=== PATIENT | male | born 1965 | race Caucasian/White ===

== ENCOUNTER 2023-05-23 07:00 | Outpatient (OUT) | payer OTHER, SELFPAY ==
[2023-05-24 11:35] LABS: Estimated Average Glucose 154 mg/dL
[2023-05-24 12:25] LABS: Alanine Aminotransferase 38 U/L (16-63); Albumin Globulin Ratio 1.1; Albumin Level 3.8 g/dL (3.4-5.0); Alkaline Phosphatase 65 U/L (46-116); Anion Gap 10.6; Aspartate Amino Transferase 25 U/L (15-37); BUN Creatinine Ratio 15.1; Bilirubin Total 0.3 mg/dL (0.2-1.0); Calcium 9.2 mg/dL (8.5-10.1); Chloride 103 mmol/L (98-107); Chol HDL Ratio 2.5; Cholesterol 189 mg/dL (<=200); Estimated GFR (African America >60 (>=60); Estimated GFR (Non-African Ame >60 (>=60); Free T3 2.83 pg/mL (2.18-3.98); Globulin 3.6 g/dL; Glucose 154 mg/dL (74-106); HDL Cholesterol 77 mg/dL (40-60); Potassium 4.6 mmol/L (3.5-5.1); Sodium 137 mmol/L (136-145); Thyroid Stimulating Hormone 1.495 uIU/mL (0.358-3.740); Total Protein 7.4 g/dL (6.4-8.2); Triglycerides 59 mg/dL (<=150); VLDL CHOLESTEROL 11.8 mg/dL
[2023-05-24 13:37] LABS: Creatinine Urine Random 90.29 mg/dL (20.00-300.00); Microalbum Creatinine Ratio Ur 14.3 mg/g (0.0-29.9); Microalbumin Urine Random <1.3 mg/dL (<=30.0)
== END 2023-05-23 07:01 | disposition home or self-care (01) ==
LOC: LAB 05-28 13:03
PROVIDERS: PCP Family Medicine
DX: E10.9 Type 1 diabetes mellitus without complications (principal)
CPT/HCPCS: 36415; 80053; 80061; 82043; 82570; 83036; 84439; 84443; 84481

== ENCOUNTER 2023-12-06 10:00 | Outpatient (OUT) | payer OTHER, SELFPAY ==
[2023-12-06 10:33] LABS: Creatinine Urine Random 59.36 mg/dL (20.00-300.00); Microalbum Creatinine Ratio Ur 28.6 mg/g (0.0-29.9); Microalbumin Urine Random 1.7 mg/dL (<=30.0)
[2023-12-06 10:38] LABS: Estimated Average Glucose 157 mg/dL; Glycohemoglobin A1C 7.1 % (4.5-6.2)
[2023-12-06 11:00] LABS: Alanine Aminotransferase 37 U/L (16-63); Albumin Level 3.5 g/dL (3.4-5.0); Alkaline Phosphatase 62 U/L (46-116); Anion Gap 7.7; Aspartate Amino Transferase 28 U/L (15-37); Bilirubin Total 0.4 mg/dL (0.2-1.0); Calcium 8.8 mg/dL (8.5-10.1); Carbon Dioxide 32.5 mmol/L (21.0-32.0); Chloride 102 mmol/L (98-107); Chol HDL Ratio 2.5; Cholesterol 186 mg/dL (<=200); Estimated GFR (African America >60 (>=60); Estimated GFR (Non-African Ame >60 (>=60); Globulin 3.5 g/dL; Glucose 142 mg/dL (74-106); HDL Cholesterol 75 mg/dL (40-60); Potassium 4.2 mmol/L (3.5-5.1); Sodium 138 mmol/L (136-145); Triglycerides 123 mg/dL (<=150); VLDL CHOLESTEROL 24.6 mg/dL
== END 2023-12-06 10:01 | disposition home or self-care (01) ==
LOC: LAB 10:03
PROVIDERS: PCP Family Medicine
DX: E10.9 Type 1 diabetes mellitus without complications (principal); E78.2 Mixed hyperlipidemia
CPT/HCPCS: 36415; 80053; 80061; 82043; 82570; 83036

== ENCOUNTER 2024-11-24 09:34 | Outpatient (OUT) | payer OTHER, SELFPAY ==
[2024-11-24 10:23] LABS: Microalbumin Urine Random <1.3 mg/dL (<=30.0)
[2024-11-24 10:32] LABS: Estimated Average Glucose 154 mg/dL
[2024-11-24 10:35] LABS: Alanine Aminotransferase 111 U/L (16-63); Albumin Globulin Ratio 1.1; Albumin Level 3.9 g/dL (3.4-5.0); Alkaline Phosphatase 74 U/L (46-116); Anion Gap 12.3; Aspartate Amino Transferase 54 U/L (15-37); BUN Creatinine Ratio 11.8; Bilirubin Total 0.4 mg/dL (0.2-1.0); Calcium 9.7 mg/dL (8.5-10.1); Carbon Dioxide 30.3 mmol/L (21.0-32.0); Chloride 100 mmol/L (98-107); Chol HDL Ratio 2.5; Cholesterol 186 mg/dL (<=200); Estimated GFR (African America >60 (>=60 mL/min/1.73m^2); Estimated GFR (Non-African Ame >60 (>=60 mL/min/1.73m^2); Globulin 3.4 g/dL; Glucose 194 mg/dL (74-106); HDL Cholesterol 74 mg/dL (40-60); Potassium 4.6 mmol/L (3.5-5.1); Sodium 138 mmol/L (136-145); Thyroid Stimulating Hormone 1.859 uIU/mL (0.358-3.740); Total Protein 7.3 g/dL (6.4-8.2); Triglycerides 153 mg/dL (<=150); VLDL CHOLESTEROL 30.6 mg/dL
== END 2024-11-24 09:35 | disposition home or self-care (01) ==
LOC: LAB 09:36
PROVIDERS: PCP Family Medicine
DX: E03.9 Hypothyroidism, unspecified (principal); E78.2 Mixed hyperlipidemia; E10.9 Type 1 diabetes mellitus without complications
CPT/HCPCS: 36415; 80053; 80061; 82043; 82570; 83036; 84443

== ENCOUNTER 2025-03-25 16:37 | Outpatient (OUT) | payer OTHER, SELFPAY ==
--- OUTSIDE RECORDS SUMMARY | 2025-03-16 16:44 | XMS_ITS ---
Author Name Auto Generated Organization OHIP Support Name Relationship Address Phone VELIA LANTIGUASA Next of Kin Unknown [phone] LANTIGUA, EDENILSON Next of Kin Unknown [phone] LANTIGUA, EDENILSON Next of Kin Unknown [phone] LANTIGUA, EDENILSON Next of Kin Unknown [phone] LANTIGUA, EDENILSON Next of Kin Unknown [phone] LANTIGUA, EDENILSON Next of Kin Unknown [phone] LANTIGUA, EDENILSON Next of Kin Unknown [phone] LANTIGUA, EDENILSON Next of Kin Unknown [phone] LANTIGUA, EDENILSON Next of Kin Unknown [phone] Lantigua, Edenilson Next of Kin [address] [place] [address] + [place] Next of Kin [address] [place] [address] + LANTIGUA, EDENILSON Next of Kin Unknown [phone] LANTIGUA, EDENILSON Next of Kin Unknown [phone] LANTIGUA, EDENILSON Next of Kin Unknown [phone] LANTIGUA, EDENILSON Next of Kin Unknown [phone] LANTIGUA, EDENILSON Next of Kin Unknown [phone] LANTIGUA, EDENILSON Next of Kin Unknown [phone] LANTIGUA, EDENILSON Next of Kin Unknown [phone] LANTIGUA, EDENILSON Next of Kin Unknown [phone] LANTIGUA, EDENILSON Next of Kin Unknown [phone] LANTIGUA, EDENILSON Next of Kin Unknown [phone] Care Team Providers Care Tail Board Man Name Role Phone JR. FUENTES GEORGE C Attending Unavaila ovi FUENTES JR., GEORGE C Referring Unavaila ble MIKAEL ARAYA Attending Unavailable MIKAEL ARAYA Referring Unavailable KAMIKAEL BENÍTEZ Referring Unavailable RAMSEY SHI Attending Unavailable MIKAEL ARAYA Referring Unavailable KATEY MÉNDEZ Attending Unavailable KATEY MÉNDEZ Attending Unavailable KATEY MÉNDEZ Referring Unavailable MIKAEL ARAYA Referring Unavailable MIKAEL ARAYA Attending Unavailable BUCKY PEÑA Attending Unavailable MIKAEL ARAYA Referring Unavailable BUCKY PEÑA Attending Unavailable MIKAEL ARAYA Attending Unavailable MIKAEL ARAYA Referring Unavailable KAPHILIPANMIKAEL Referring Unavailable MIKAEL ARAYA Attending Unavailable MIKAEL ARAYA Referring Unavailable MIKAEL ARAYA JR [facility] Unavail able MIKAEL ARAYA JR [facility] Unavail able PRABHA GONZALEZ Referring Unavailable MIKAEL ARAYA JR [facility] Unavail able MORENA, GANDHIVARMA Referring Unavail able MIKAEL ARAYA JR [facility] Care Unavail able MORENA, GANDHIVARMA Attending Unavail able MORENA, GANDHIVARMA Referring Unavail able MIKAEL ARAYA JR [facility] Unavail able MORENA, GANDHIVARMA Referring Unavail able MIKAEL ARAYA JR [facility] Unavail able MIKAEL ARAYA JR [facility] Unavail able MORENA, GANDHIVARMA Referring Unavail able MIKAEL ARAYA JR [facility] Unavail able BERNARDINO VLILAGOMEZ Attending Unavailable GLO SANDRA Attending Unavailable MIKAEL ARAYA JR [facility] Care Unavail able MIGDALIA UREÑA Attending Unavailable MIKAEL ARAYA JR [facility] Unavail able SELF Referring Unavailable BLANCA MARTINEZ Attending Unavailable MIKAEL ARAYA JR [facility] Unavail able MORENA, GANDHIVARMA Attending Unavail able MIKAEL ARAYA JR [facility] Care Unavail able Darryn Araya Attending Unavailable Darryn Araya Primary Care Unavailable Darryn Araya Admitting Unavailable MORENA, GANDHIVARMA Attending Unavail able MIKAEL ARAYA [facility] Unavail able MIGDALIA UREÑA Referring Unavailable MIKAEL ARAYA [facility] Unavail able MALIHA BERG Attending Unavail able MALIHA BERG Admitting Unavail able MIKAEL ARAYA [facility] Unavail able MIGDALIA UREÑA Attending Unavailable MIGDALIA UREÑA Admitting Unavailable MIKAEL ARAYA JR [facility] Unavail able MIGDALIA UREÑA Attending Unavailable MIGDALIA UREÑA Admitting Unavailable Alfie CERVANTES Attending Unavailable PROBLEMS DATE TYPE CONDITION / CODE ATTENDING STATUS [facility] 03/01/2025 Active Chronic midline low back pain without sciatica / M54.50(ICD-10) NA Active [facility] 03/01/2025 Active Chronic midline low back pain without sciatica / G89.29(ICD-10) NA Active [facility] 03/01/2025 Active Chronic bilatera l low back pain with left-sided sciatica / G89.29(ICD-10) NA Active [facility] 03/01/2025 Active Chronic bilatera l low back pain with left-sided sciatica / M54.42(ICD-10) NA Active [facility] 01/12/2025 Active Radiculopathy, l umbar region / M54.16(ICD-10) MALIHA BERG [facility] 12/30/2024 Active Pre-op evaluatio n / Z01.818(ICD-10) NA Active [facility] 12/07/2024 Active Diabetes mellitu s type 1, controlled, insulin dependent (HCC) / E10.9(ICD-10) BERNARDINO VILLAGOMEZ Active [facility] 08/20/2024 Active Radiculopathy of lumbar region / M54.16(ICD-10) MORENA, GANBRANDYIVARMA [facility] 08/20/2024 Active Spinal stenosis of lumbar region, unspecified whether neurogenic claudication present / M48.061(ICD-10) MORENA, GANDHIVARMA [facility] 06/29/2024 Active Lumbar radiculop athy, chronic / M54.16(ICD-10) MIGDALIA UREÑA Active [facility] 06/25/2024 Unknown Disorder of bone , unspecified / M89.9(ICD-10) Darryn Araya [facility] PROCEDURES No Procedure Records Found RESULTS CNPN Observed: 03/23/2025 12:00 AM Status: COMPLETED Source: [facility] Telephone (NIQ) JACQUIE LANTIGUA ([id number]) 1965 M Date Time Provider Department 03/23/25 MALIHA BERG [place] During your visit today, we recorded the following information about you: Alexandria Cook 03/23/2025 3:30 PM Signed Patient called with complaints of left hip and leg pain. 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 Per patient, he is ok from 6:30 till about noon, then his left hip and leg keeps giving out and he can no longer walk. Please call patient to advise at [phone]. Zohaib Garcia PA-C 03/23/2025 4:15 PM Signed Call placed to patient at 3:50 PM. Patient reports left hip and leg pain that is not improved with medication. He states he is able to go to work in the morning but 4 to 5 hours into his shift the pain becomes so severe that his left leg gives out. He has been doing physical therapy 2 times a day at home as well as 1 day a week in person with the physical therapists. He is using ibuprofen, gabapentin, and had a steroid pack recently with no relief. Since he is having a lot of left sided hip pain, will order left hip x-ray. Advised patient to have them send imaging over to [facility] once completed and follow-up with Dr. Berg's office. Will fax order to [facility]. Patient was appreciative of call. Allergies As of Date: 03/23/2025 Noted Allergy Reaction HUMIRA (ADALIMUMAB) 08/20/2017 8 - GI Upset METHOTREXATE 05/21/2019 16 - Unknown RED DYE 07/04/2002 16 - Unknown Date Reviewed: 02/03/2025 Reviewed by: Jackie Linares OCCA - Fully Assessed Reason for Visit: Severe Pain [Other] Primary Visit Diagnosis:Pain in left hip [M25.552] Order(s):XR HIP GENERAL 3V PELV/AP/LAT LEFT [[id number]] Order #: [id number] FUTURE Prescriptions as of 03/24/2025 - methocarbamol (ROBAXIN) 750 mg tablet Take 1 tablet by mouth three times a day. - tiZANidine (ZANAFLEX) 4 mg tablet 4 mg. - HUMALOG U-100 INSULIN 100 unit/mL injection INJECT 90 UNITS DAILY VIA INSULIN PUMP - gabapentin (NEURONTIN) 400 mg capsule Take 800 mg by mouth. 3 x times dily - famotidine (PEPCID) 20 mg tablet Take 1 tablet by mouth two times a day. - rifAMPin (RIFADIN) 300 mg capsule Take 2 pills once monthly - ofloxacin (FLOXIN) 400 mg tablet Take 1 pill once monthly - Minocycline HCl 100 mg tablet Take 1 pill once monthly - fluticasone (FLONASE) 50 mcg/actuation nasal spray Use in the nose. - icosapent ethyl (VASCEPA) 1 gram Take 1 g by mouth. 2 caps in the AM and 2 caps in the PM - levothyroxine (SYNTHROID) 50 mcg tablet TAKE 2 TABLETS DAILY - rosuvastatin (CRESTOR) 20 mg tablet TAKE ONE AND ONE-HALF TABLETS ONCE DAILY - ibuprofen (MOTRIN) 800 mg tablet Take 800 mg by mouth every 6 hours as needed. - cyclobenzaprine (FLEXERIL) 10 mg tablet Take 10 mg by mouth three times daily as needed. - PROAIR HFA 90 mcg/actuation inhaler Inhale 2 Puffs as instructed as needed. - ADVAIR HFA 115-21 mcg/actuation inhaler Inhale 4 Puffs as instructed once daily. - MUCINEX 600 mg 12 hr tablet Take 2 tablets by mouth once daily as needed. - Subcutaneous Insulin Pump (ACCU-CHEK SPIRIT INSULIN PUMP) misc Basal rates: 24:00 --1.6units/hr; 0300:-2.3units/hr;06:00-1.8;11:00-1.8;12:00-2.0;16:00-2.2;19:00-2.7;21:00-2.4 ;22:00-1.6. Bolus: 2 unit/6 Gms CHO each meal; correction : 1 unit every 25 mg > 125 mg/dl. Whn wrk. hrd: tmp bas at 80% - lisinopril (ZESTRIL) 2.5 mg tablet Take 4 tablets by mouth once daily. - aspirin, enteric coated (ECOTRIN LOW STRENGTH) 81 mg ORAL EC tablet Take 1 tablet by mouth once daily. - fluoxetine hcl(PROZAC 20 MG CAP) 3 tabs daily - ONE TOUCH ULTRA TEST STRIPS chekc 6-8 timea a day(insulin pump) - ONE TOUCH FINE POINT LANCET uses 6-8 a day - CENTRUM ECHINACEA CAPSULE 100MG PO Problem List As Of Date 03/23/2025 Noted Resolved Type 1 diabetes mellitus with other specified c*07/20/2002 MIXED HYPERLIPIDEMIA [E78.2] 06/12/2004 HYPOPOTASSEMIA [E87.6] 06/12/2004 ED. [N52.9] 07/22/2005 Peyronie's. [N48.89] 08/08/2005 ABNORMAL THYROID FUNCT STUDY (neg MCAB) [R94.6] 02/03/2006 11/27/2018 acquired hypothyroidism [E03.8] 03/05/2011 11/27/2018 Diabetes mellitus type 1, uncontrolled, without*02/13/2016 11/27/2018 Adult onset hypothyroidism [E03.8] 02/13/2016 11/27/2018 Background diabetic retinopathy (HCC) [E11.3299]02/13/2016 Primary hypertension [I10] 12/30/2024 Acquired hypothyroidism [E03.9] 12/30/2024 Moderate asthma without complication [J45.909] 12/30/2024 Obesity, Class I, BMI 30-34.9 [E66.811] 01/06/2025 Hard to intubate [T88.4XXA] 01/12/2025 Chronic midline low back pain without sciatica *03/01/2025 Encounter Status:Closed by ZOHAIB GARCIA on 03/23/25 CNTHERAPY Observed: 03/16/2025 5:00 PM Status: COMPLETED Source: [facility] OT/PT/Speech Visit (LOPTRM) JACQUIE LANTIGUA ([id number]) 1965 M Date Time Provider Department 03/16/25 5:00 PM DAMIEN REEVES Date Time Provider Department Center 03/16/2025 5:00 PM [id number] REEVES Reason for Visit: Physical Therapy [503] Primary Visit Diagnosis:Chronic midline low back pain without sciatica [M54.50, G89.29] Other Visit Diagnosis:Chronic bilateral low back pain with left-sided sciatica [G89.29, M54.42] Allergies As of Date: 03/16/2025 Noted Allergy Reaction HUMIRA (ADALIMUMAB) 08/20/2017 8 - GI Upset METHOTREXATE 05/21/2019 16 - Unknown RED DYE 07/04/2002 16 - Unknown Date Reviewed: 02/03/2025 Reviewed by: Jackie Linares OCCA - Fully Assessed Prescriptions as of 03/17/2025 - methocarbamol (ROBAXIN) 750 mg tablet Take 1 tablet by mouth three times a day. - tiZANidine (ZANAFLEX) 4 mg tablet 4 mg. - HUMALOG U-100 INSULIN 100 unit/mL injection INJECT 90 UNITS DAILY VIA INSULIN PUMP - gabapentin (NEURONTIN) 400 mg capsule Take 800 mg by mouth. 3 x times dily - famotidine (PEPCID) 20 mg tablet Take 1 tablet by mouth two times a day. - rifAMPin (RIFADIN) 300 mg capsule Take 2 pills once monthly - ofloxacin (FLOXIN) 400 mg tablet Take 1 pill once monthly - Minocycline HCl 100 mg tablet Take 1 pill once monthly - fluticasone (FLONASE) 50 mcg/actuation nasal spray Use in the nose. - icosapent ethyl (VASCEPA) 1 gram Take 1 g by mouth. 2 caps in the AM and 2 caps in the PM - levothyroxine (SYNTHROID) 50 mcg tablet TAKE 2 TABLETS DAILY - rosuvastatin (CRESTOR) 20 mg tablet TAKE ONE AND ONE-HALF TABLETS ONCE DAILY - ibuprofen (MOTRIN) 800 mg tablet Take 800 mg by mouth every 6 hours as needed. - cyclobenzaprine (FLEXERIL) 10 mg tablet Take 10 mg by mouth three times daily as needed. - PROAIR HFA 90 mcg/actuation inhaler Inhale 2 Puffs as instructed as needed. - ADVAIR HFA 115-21 mcg/actuation inhaler Inhale 4 Puffs as instructed once daily. - MUCINEX 600 mg 12 hr tablet Take 2 tablets by mouth once daily as needed. - Subcutaneous Insulin Pump (ACCU-CHEK SPIRIT INSULIN PUMP) misc Basal rates: 24:00 --1.6units/hr; 0300:-2.3units/hr;06:00-1.8;11:00-1.8;12:00-2.0;16:00-2.2;19:00-2.7;21:00-2.4 ;22:00-1.6. Bolus: 2 unit/6 Gms CHO each meal; correction : 1 unit every 25 mg > 125 mg/dl. Eva fuentesk. hrd: tmp bas at 80% - lisinopril (ZESTRIL) 2.5 mg tablet Take 4 tablets by mouth once daily. - aspirin, enteric coated (ECOTRIN LOW STRENGTH) 81 mg ORAL EC tablet Take 1 tablet by mouth once daily. - fluoxetine hcl(PROZAC 20 MG CAP) 3 tabs daily - ONE TOUCH ULTRA TEST STRIPS chekc 6-8 timea a day(insulin pump) - ONE TOUCH FINE POINT LANCET uses 6-8 a day - CENTRUM ECHINACEA CAPSULE 100MG PO PROGRESS Observed: 03/16/2025 4:50 PM Status: COMPLETED Source: [facility] ID: [id number] Author: DAMIEN REEVES PTA Service: ? Author Type: Procurement Officer Type: Progress Notes Filed: 03/17/2025 08:24 Note Text: Episode Visit Count: 3 Therapist That Will Accept/Oversee The Plan Of Care: Chery Land Start of Care Date: 03/01/25 Onset Date: 11/03/23 REHABILITATION AND SPORTS THERAPY PHYSICAL THERAPY TREATMENT NOTE ASSESSMENT: Jacquie Lantigua tolerated the session well overall. Patient progressing without increased pain or discomfort during core stability AND stretching exercises. Patient able to verbalize HEP independently. The patient will continue to benefit from ongoing skilled physical therapy to progress toward set goals. PLAN FOR NEXT VISIT: Patient to follow up with his primary PT next treatment. SUBJECTIVE: Patient reported that he's doing better. Back is feeling better since starting therapy, but it's still bothering him. Pain: Pain Pain Level: 5 Pain Location: Low Back/Lumbar Spine - Left, Leg - Left Description: Aching, Dull, Tightness Frequency: Intermittent Post Treatment Pain Post Treatment Pain Level: Better OBJECTIVE MEASURES WITH LEVEL OF FUNCTION: More tight in left > than right quadriceps. Posture: thoracic block sits anterior to pelvic block TREATMENT: Therapeutic Exercise: 1: Seated stepper 5 mins 1:1 throughout discussing current status and HEP 2: Hamstring flossing w/ towel x10a 3: Piriformis 30sec x3 4: Edge of bed hip flexor stretch x 30 sec x 2 reps each LE 5: Bridge 2 x 10 Skilled Intervention: Patient was educated in proper exercise technique and purpose for exercises. Skilled judgment was used in selection of appropriate interventions. Patient education as noted. Neuromuscular Re-Education: 1: Hooklying hip flexion isometric alt UE/LE x 5 sec hold x 20 reps 2: Hooklying hip flexion isometric WOOD UE/LE x 5 sec hold x 20 reps 3: Standing hip ext with RTB, neutral spine 2 x 10 Skilled Intervention: Education and demonstration for posture and positioning for tone management. Patient education as noted. Billing Therapeutic Exercise Treatment Minutes: 22 Manual TherapyTreatment Minutes: 10 Neuromuscular Re-Education Treatment Minutes: 13 Skilled Treatment Time Minutes (timed and untimed codes): 45 Total Session Time (minutes): 45 Session Start Time : 1653 Session Stop Time : 1738 Damien Reeves PTA THERAPY NT Observed: 03/09/2025 5:33 PM Status: COMPLETED Source: [facility] HNO ID: [id number] Author: DAMIEN REEVES PTA Service: ? Author Type: Procurement Officer Type: Therapy (PT/OT/Speech/Resp) Filed: 03/09/2025 17:33 Note Text: Program_ID:[id number] Access Code: [email or web address] URL: [email or web address] Date: 03-09-2025 Prepared By: Chery Land Program Notes self massage to left gluteal with over the counter thera-gun, 2-3 mins as needed Exercises - Active Straight Leg Raise with Quad Set - 1-2 x daily - 7 x weekly - 1 sets - 10-15 reps - Supine Lower Trunk Rotation - 1-2 x daily - 7 x weekly - 1 sets - 10 reps - Supine Bridge - 1-2 x daily - 7 x weekly - 1 sets - 10-15 reps - Sidelying Hip Abduction - 1-2 x daily - 7 x weekly - 1-2 sets - 10-15 reps - Hooklying Isometric Hip Flexion with Opposite Arm - 1-2 x daily - 7 x weekly - 1 sets - 10 reps - Supine Hamstring Stretch - 1 x daily - 7 x weekly - 1 sets - 10 reps - Modified Tom Stretch - 1 x daily - 7 x weekly - 1 sets - 2 reps - Bent Knee Fallouts - 1 x daily - 7 x weekly - 3 sets - 10 reps - Supine Piriformis Stretch with Foot on Ground - 1 x daily - 7 x weekly - sets - 3 reps CNTHERAPY Observed: 03/09/2025 5:00 PM Status: COMPLETED Source: [facility] OT/PT/Speech Visit (ALEE) JACQUIE LANTIGUA ([id number]) 1965 M Date Time Provider Department 03/09/25 5:00 PM DAMIEN REEVES Date Time Provider Department Center 03/09/2025 5:00 PM [id number] REEVES Reason for Visit: Physical Therapy [503] Primary Visit Diagnosis:Chronic midline low back pain without sciatica [M54.50, G89.29] Other Visit Diagnosis:Chronic bilateral low back pain with left-sided sciatica [G89.29, M54.42] Allergies As of Date: 03/09/2025 Noted Allergy Reaction HUMIRA (ADALIMUMAB) 08/20/2017 8 - GI Upset METHOTREXATE 05/21/2019 16 - Unknown RED DYE 07/04/2002 16 - Unknown Date Reviewed: 02/03/2025 Reviewed by: Jackie Linares OCCA - Fully Assessed Prescriptions as of 03/09/2025 - methylPREDNISolone (MEDROL, RIVAS,) 4 mg Dose-Pack As instructed per package - methocarbamol (ROBAXIN) 750 mg tablet Take 1 tablet by mouth three times a day. - tiZANidine (ZANAFLEX) 4 mg tablet 4 mg. - HUMALOG U-100 INSULIN 100 unit/mL injection INJECT 90 UNITS DAILY VIA INSULIN PUMP - gabapentin (NEURONTIN) 400 mg capsule Take 800 mg by mouth. 3 x times dily - famotidine (PEPCID) 20 mg tablet Take 1 tablet by mouth two times a day. - rifAMPin (RIFADIN) 300 mg capsule Take 2 pills once monthly - ofloxacin (FLOXIN) 400 mg tablet Take 1 pill once monthly - Minocycline HCl 100 mg tablet Take 1 pill once monthly - fluticasone (FLONASE) 50 mcg/actuation nasal spray Use in the nose. - icosapent ethyl (VASCEPA) 1 gram Take 1 g by mouth. 2 caps in the AM and 2 caps in the PM - levothyroxine (SYNTHROID) 50 mcg tablet TAKE 2 TABLETS DAILY - rosuvastatin (CRESTOR) 20 mg tablet TAKE ONE AND ONE-HALF TABLETS ONCE DAILY - ibuprofen (MOTRIN) 800 mg tablet Take 800 mg by mouth every 6 hours as needed. - cyclobenzaprine (FLEXERIL) 10 mg tablet Take 10 mg by mouth three times daily as needed. - PROAIR HFA 90 mcg/actuation inhaler Inhale 2 Puffs as instructed as needed. - ADVAIR HFA 115-21 mcg/actuation inhaler Inhale 4 Puffs as instructed once daily. - MUCINEX 600 mg 12 hr tablet Take 2 tablets by mouth once daily as needed. - Subcutaneous Insulin Pump (ACCU-CHEK SPIRIT INSULIN PUMP) misc Basal rates: 24:00 --1.6units/hr; 0300:-2.3units/hr;06:00-1.8;11:00-1.8;12:00-2.0;16:00-2.2;19:00-2.7;21:00-2.4 ;22:00-1.6. Bolus: 2 unit/6 Gms CHO each meal; correction : 1 unit every 25 mg > 125 mg/dl. Eva hein. hrd: tmp bas at 80% - lisinopril (ZESTRIL) 2.5 mg tablet Take 4 tablets by mouth once daily. - aspirin, enteric coated (ECOTRIN LOW STRENGTH) 81 mg ORAL EC tablet Take 1 tablet by mouth once daily. - fluoxetine hcl(PROZAC 20 MG CAP) 3 tabs daily - ONE TOUCH ULTRA TEST STRIPS chekc 6-8 timea a day(insulin pump) - ONE TOUCH FINE POINT LANCET uses 6-8 a day - CENTRUM ECHINACEA CAPSULE 100MG PO Education Administrator: Therapy (PT/OT/Speech/Resp) ID: [id number] 03/09/2025 5:33 PM Author: DAMIEN REEVES Signed by DAMIEN REEVES SURGICAL LEAD on 03/09/2025 at 5:33 PM Document text: Program_ID:[id number] Access Code: [email or web address] URL: [email or web address] Date: 03-09-2025 Prepared By: Chery Land Program Notes self massage to left gluteal with over the counter thera-gun, 2-3 mins as needed Exercises - Active Straight Leg Raise with Quad Set - 1-2 x daily - 7 x weekly - 1 sets - 10-15 reps - Supine Lower Trunk Rotation - 1-2 x daily - 7 x weekly - 1 sets - 10 reps - Supine Bridge - 1-2 x daily - 7 x weekly - 1 sets - 10-15 reps - Sidelying Hip Abduction - 1-2 x daily - 7 x weekly - 1-2 sets - 10-15 reps - Hooklying Isometric Hip Flexion with Opposite Arm - 1-2 x daily - 7 x weekly - 1 sets - 10 reps - Supine Hamstring Stretch - 1 x daily - 7 x weekly - 1 sets - 10 reps - Modified Tom Stretch - 1 x daily - 7 x weekly - 1 sets - 2 reps - Bent Knee Fallouts - 1 x daily - 7 x weekly - 3 sets - 10 reps - Supine Piriformis Stretch with Foot on Ground - 1 x daily - 7 x weekly - sets - 3 reps PROGRESS Observed: 03/09/2025 4:51 PM Status: COMPLETED Source: [facility] HNO ID: [id number] Author: DAMIEN REEVES PTA Service: ? Author Type: Procurement Officer Type: Progress Notes Filed: 03/09/2025 17:42 Note Text: Episode Visit Count: 2 Therapist That Will Accept/Oversee The Plan Of Care: Chery Land Start of Care Date: 03/01/25 Onset Date: 11/03/23 REHABILITATION AND SPORTS THERAPY PHYSICAL THERAPY TREATMENT NOTE ASSESSMENT: Jacquie Lantigua tolerated the session well overall. Noted relief from self STM with theragun to left gluteal. Updated HEP this date and all questions answered. The patient will continue to benefit from ongoing skilled physical therapy to progress toward set goals. PLAN FOR NEXT VISIT: Progress as able. SUBJECTIVE: Patient reported that he's a little better. Still having the pain with activity AND prolonged weight bearing. Pain: Pain Pain Level: 6 Pain Location: Low Back/Lumbar Spine - Left, Leg - Left Description: Aching, Dull, Sharp (slightly less sharp) Frequency: Intermittent Post Treatment Pain Post Treatment Pain Level: Better OBJECTIVE MEASURES WITH LEVEL OF FUNCTION: More difficulty keeping left hip in a neutral alignment verses right LE. Increased tone left gluteal. TREATMENT: Therapeutic Exercise: 1: Hamstring flossing w/ towel x15a 2: *Self tennis ball massage 3: LTR x 10 reps each side 4: Bridges x 15 reps 5: S/L hip abduction x 15 reps each LE 6: Edge of bed hip flexor stretch x 30 sec x 2 reps each LE 7: *self STM with theragun 1 min 8: *piriformis 30sec x3 Skilled Intervention: Patient was educated in proper exercise technique and purpose for exercises. Skilled judgment was used in selection of appropriate interventions. Patient education as noted. *HEP addition. Neuromuscular Re-Education: 1: Hooklying hip flexion isometric alt UE/LE x 5 sec hold x 20 reps 2: SLR x 15 reps each LE 3: S/L hip abduction x 15 reps each LE Skilled Intervention: Patient education as noted. Billing Therapeutic Exercise Treatment Minutes: 32 Neuromuscular Re-Education Treatment Minutes: 10 Skilled Treatment Time Minutes (timed and untimed codes): 42 Total Session Time (minutes): 42 Session Start Time : 1654 Session Stop Time : 1736 Damien Reeves PTA THERAPY NT Observed: 03/01/2025 1:32 PM Status: COMPLETED Source: [facility]NO ID: [id number] Author: CHERY LAND PT Service: Physical Therapy Author Type: Physical Therapist Type: Therapy (PT/OT/Speech/Resp) Filed: 03/01/2025 13:32 Note Text: Program_ID:[id number] Access Code: [email or web address] URL: [email or web address] Date: 03-01-2025 Prepared By: Chery Land Program Notes Exercises - Active Straight Leg Raise with Quad Set - 1-2 x daily - 7 x weekly - 1 sets - 10-15 reps - Supine Lower Trunk Rotation - 1-2 x daily - 7 x weekly - 1 sets - 10 reps - Supine Bridge - 1-2 x daily - 7 x weekly - 1 sets - 10-15 reps - Sidelying Hip Abduction - 1-2 x daily - 7 x weekly - 1-2 sets - 10-15 reps - Hooklying Isometric Hip Flexion with Opposite Arm - 1-2 x daily - 7 x weekly - 1 sets - 10 reps - Supine Hamstring Stretch - 1 x daily - 7 x weekly - 1 sets - 10 reps - Modified Tom Stretch - 1 x daily - 7 x weekly - 1 sets - 2 reps CNTHERAPY Observed: 03/01/2025 1:00 PM Status: COMPLETED Source: [facility] OT/PT/Speech Visit (LOPTRM) JACQUIE LANTIGUA ([id number]) 1965 M Date Time Provider Department 03/01/25 1:00 PM CHERY LAND Date Time Provider Department Center 03/01/2025 1:00 PM [id number] LAND Reason for Visit: PT Eval [747] Patient Education [91] Primary Visit Diagnosis:Chronic midline low back pain without sciatica [M54.50, G89.29] Other Visit Diagnosis:Chronic bilateral low back pain with left-sided sciatica [G89.29, M54.42] Allergies As of Date: 03/01/2025 Noted Allergy Reaction HUMIRA (ADALIMUMAB) 08/20/2017 8 - GI Upset METHOTREXATE 05/21/2019 16 - Unknown RED DYE 07/04/2002 16 - Unknown Date Reviewed: 02/03/2025 Reviewed by: Jackie Linares OCCA - Fully Assessed Prescriptions as of 03/01/2025 - methocarbamol (ROBAXIN) 500 mg tablet Take 1 tablet by mouth three times a day. - methocarbamol (ROBAXIN) 750 mg tablet Take 1 tablet by mouth three times a day. - tiZANidine (ZANAFLEX) 4 mg tablet 4 mg. - HUMALOG U-100 INSULIN 100 unit/mL injection INJECT 90 UNITS DAILY VIA INSULIN PUMP - gabapentin (NEURONTIN) 400 mg capsule Take 800 mg by mouth. 3 x times dily - famotidine (PEPCID) 20 mg tablet Take 1 tablet by mouth two times a day. - rifAMPin (RIFADIN) 300 mg capsule Take 2 pills once monthly - ofloxacin (FLOXIN) 400 mg tablet Take 1 pill once monthly - Minocycline HCl 100 mg tablet Take 1 pill once monthly - fluticasone (FLONASE) 50 mcg/actuation nasal spray Use in the nose. - icosapent ethyl (VASCEPA) 1 gram Take 1 g by mouth. 2 caps in the AM and 2 caps in the PM - levothyroxine (SYNTHROID) 50 mcg tablet TAKE 2 TABLETS DAILY - rosuvastatin (CRESTOR) 20 mg tablet TAKE ONE AND ONE-HALF TABLETS ONCE DAILY - ibuprofen (MOTRIN) 800 mg tablet Take 800 mg by mouth every 6 hours as needed. - cyclobenzaprine (FLEXERIL) 10 mg tablet Take 10 mg by mouth three times daily as needed. - PROAIR HFA 90 mcg/actuation inhaler Inhale 2 Puffs as instructed as needed. - ADVAIR HFA 115-21 mcg/actuation inhaler Inhale 4 Puffs as instructed once daily. - MUCINEX 600 mg 12 hr tablet Take 2 tablets by mouth once daily as needed. - Subcutaneous Insulin Pump (ACCU-CHEK SPIRIT INSULIN PUMP) misc Basal rates: 24:00 --1.6units/hr; 0300:-2.3units/hr;06:00-1.8;11:00-1.8;12:00-2.0;16:00-2.2;19:00-2.7;21:00-2.4 ;22:00-1.6. Bolus: 2 unit/6 Gms CHO each meal; correction : 1 unit every 25 mg > 125 mg/dl. Eva hein. hrd: tmp bas at 80% - lisinopril (ZESTRIL) 2.5 mg tablet Take 4 tablets by mouth once daily. - aspirin, enteric coated (ECOTRIN LOW STRENGTH) 81 mg ORAL EC tablet Take 1 tablet by mouth once daily. - fluoxetine hcl(PROZAC 20 MG CAP) 3 tabs daily - ONE TOUCH ULTRA TEST STRIPS chekc 6-8 timea a day(insulin pump) - ONE TOUCH FINE POINT LANCET uses 6-8 a day - CENTRUM ECHINACEA CAPSULE 100MG PO Education Administrator: Addendum Therapy (PT/OT/Speech/Resp) ID: [id number] 03/01/2025 1:32 PM Author: CHERY LAND Signed by CHERY LAND PT on 03/01/2025 at 1:32 PM * * * This document replaces document [id number] * * * Document text: Program_ID:[id number] Access Code: [email or web address] URL: [email or web address] Date: 03-01-2025 Prepared By: Chery Land Program Notes Exercises - Active Straight Leg Raise with Quad Set - 1-2 x daily - 7 x weekly - 1 sets - 10-15 reps - Supine Lower Trunk Rotation - 1-2 x daily - 7 x weekly - 1 sets - 10 reps - Supine Bridge - 1-2 x daily - 7 x weekly - 1 sets - 10-15 reps - Sidelying Hip Abduction - 1-2 x daily - 7 x weekly - 1-2 sets - 10-15 reps - Hooklying Isometric Hip Flexion with Opposite Arm - 1-2 x daily - 7 x weekly - 1 sets - 10 reps - Supine Hamstring Stretch - 1 x daily - 7 x weekly - 1 sets - 10 reps - Modified Tom Stretch - 1 x daily - 7 x weekly - 1 sets - 2 reps PROGRESS Observed: 03/01/2025 12:53 PM Status: COMPLETED Source: [facility] HNO ID: [id number] Author: CHERY LAND, PT Service: ? Author Type: Physical Therapist Type: Progress Notes Filed: 03/01/2025 13:42 Note Text: Episode Visit Count: 1 Therapist That Will Accept/Oversee The Plan Of Care: Chery Land Start of Care Date: 03/01/25 Onset Date: 11/03/23 Patient Identified by Name and Date of : Yes REHABILITATION AND SPORTS THERAPY PHYSICAL THERAPY EVALUATION PLAN OF CARE: Assessment: Jacquie Lantigua presents with chief complaint of low back pain s/p Left L5-S1 discectomy with foot foraminotomy that interferes with rising from a chair, standing, walking, stair negotiation, bending, lifting, physical activities . The patient presents with impairments in ADL's, balance, flexibility, gait, overall function, range of motion, strength, symptom management, and tissue tenderness. PROMIS? (Patient-Reported Outcomes Measurement Information System) scores were reviewed and identified as a rehabilitation concern. Prognosis for therapy is Good due to: current objective clinical presentation . The patient will benefit from skilled therapy services to meet the goals established for this plan of care as noted below. Because of above mentioned impairments and past medical history patient qualifies as a low complexity evaluation. Classification Pain Mechanism Classification: Neuropathic Low Back Pain Classification: Symptom Modulation Goals for Episode of Care: established 03/01/25 Independent in home exercises. Patient will decrease pain rating by 2 points to meet minimal clinical important difference for numeric pain rating scale. Restore pain-free lumbar ROM to min restriction to allow for improved ability to perform functional activities and activities of daily living Stand / Walk 1 hour without pain/symptoms. Patient will be able to tolerate functional activities for 1 hour without increased symptoms. Patient will increase strength of bilateral LEs to 4+/5 to allow for improve gait mechanics/gait pattern, improve ability to complete ADLs, and functional activities. Patient will increase flexibility of left hamstring and bilateral quads and hip flexors to min restriction to improve ability to maintain proper posture, improve mechanics, and decrease pain. Patient Goals: Decrease pain down the leg Time Frame for Goals and Treatment : 04/30/25 Planned Interventions, Frequency, and Duration: Current Frequency: 1x/week Duration: 8 weeks Total Number of Visits Planned: 8 Planned Treatment Interventions: Therapeutic exercise (76427), Neuromuscular re-education (19185), Manual therapy (55587), Therapeutic activities (41304), Self-chcf management (71753), Gait Training (54424), Patient/Family/Caregiver Education PLAN FOR NEXT VISIT: Progress LE strength, mobility Patient demonstrates good understanding of plan of care and treatment. The above goals and plan of care were discussed and agreed upon by patient/family. SUBJECTIVE: Patient reports that he was having pain down his left leg. Had surgery 01/12, and only has about 4% improvement in his pain. Still has pain down his leg, and has hip pain. Pain has been going on for about 1.5 years. Had injections, only had relief for about a day. Had some therapy out in [place], did about 4 weeks, it did not really help. Has been using ice and heat, sometimes one works better than the other. Tried a TENS unit, and it make things worse. 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[employer] Hobbies / Interests: Motorcycle riding, socializing with friends, throwing darts Intake Information: Prescription present Previous Treatment: Surgery , TENS , Injections , Physical Therapy , Heat , Ice (Gabapentin, Tylenol) Falls Interview: No positive findings with falls interview Red Flags Vertebral Fracture Clinical Reasoning: No identified risk factors Abdominal Aortic Aneurysm Red Flags: Age >60 Abdominal Aortic Aneurysm Clinical Reasoning: Proceed with caution Cancer Red Flags: Age >50 or <20 Cancer Clinical Reasoning: Proceed with caution Infection Clinical Reasoning: No identified risk factors. Cauda Equina Syndrome Clinical Reasoning: No identified risk factors. Red Flags - Cervical Cancer Red Flags: Age >50 or <20 Cancer Clinical Reasoning: Proceed with caution Infection Clinical Reasoning: No identified risk factors. Spine History Symptoms Location at Onset: Back Symptoms Since Onset: Improving Pain is Worse Always: As the day progresses, On the Move, Standing, Walking Pain is Better Sometimes: Lying Previous Episodes: Yes Sleep Affected by Pain: Not affected by pain (takes sleeping medication) Pain: Pain Pain Level: 9 Pain Location: Low Back/Lumbar Spine - Left, Leg - Left Description: Sharp Frequency: Intermittent Post Treatment Pain Post Treatment Pain Level: 8 PROMIS Scales 02/27/2025 02/02/2025 Higher is Better Phys Func - T Score 36 (moderate dysfunction) Phys Func - Percentile 8 Self-Eff Symptom - T Score 35 (Low) Self-Eff Symptom - Percentile 7 02/02/2025 Lower is Better Pain Interference - T Score 67 (moderate) Pain Interference - Percentile 4 T-scores: mean of general population = 50. 5 points is clinically meaningfully difference Percentiles provide an indication of how the patient's score ranks in relation to the general population. Higher percentile rankings indicate better function/quality of life. 50th percentile is the average of the general population and indicates half of respondents had a worse score. OBJECTIVE MEASURES WITH LEVEL OF FUNCTION: Posture / Alignment Posture: Forward head, Rounded shoulders Spine Observations R Lumbar Spine Palpation Tenderness: No tenderness noted L Lumbar Spine Palpation Tenderness: PSIS (posterior superior iliac spine), Sacral base, Sciatic notch Sensation - Lumbar Sensation: Grossly Intact Lumbar Spine AROM Lumbar Flexion: Minimal limitation Lumbar Extension: Moderate limitation Lumbar R Side-Bend: Minimal limitation Lumbar L Side-Bend: Minimal limitation Lumbar R Rotation: Minimal limitation Lumbar L Rotation: Minimal limitation LE Flexibility Flexibility: Hamstring Flexibility, Quadriceps Flexibility, Hip Flexor Flexibility R Hamstring Flexibility: min restriction L Hamstring Flexibility: mod restriction R Hip Flexor Flexibility: mod restriction L Hip Flexor Flexibility: mod restriction R Quadriceps Flexibility: mod restriction L Quadriceps Flexibility: mod restriction LE Strength R Hip Extension: 4+/5 R Hip Flexion (L2): 4+/5 R Hip ABduction: 4/5 R Knee Extension (L3): 4+/5 R Knee Flexion: 4+/5 R Ankle Dorsiflexion (L4): 4+/5 R Ankle Plantar Flexion: 4+/5 L Hip Extension: 4+/5 L Hip Flexion (L2): 4/5 L Hip ABduction: 4-/5 L Knee Extension (L3): 4+/5 L Knee Flexion: 4+/5 L Ankle Dorsiflexion (L4): 4-/5 Special Tests - Hip and Spine Hip and Spine Special Tests: SLR Test, MECCA Test, FADDIR Test SLR Test: Right Negative, Left Negative MECCA Test: Right Negative, Left Negative FADDIR Test: Right Negative, Left Negative Gait Gait: Independent Gait Deviations: General Deviations General Deviations/Observations: Flexed trunk posture, Lateral sway increased Education: Education Learning Preferences: Demonstration, Explanation, Performance, Printed Materials Barriers: None Learning/educational needs: Home exercise program, Plan of Care Education Provided: Yes, see treatment interventions for education provided Education Provided To: Patient Education Mode/Type: Demonstration, Explanation/Discussion, Literature/Printed Materials, Performance, Teach Back Response to Education/Teach Back: States/Identifies, Return Demonstration TREATMENT: PT Treatment Interventions: Therapeutic Exercise, Neuromuscular Re-Education, Self-Shelter Management Evaluation Evaluation Therapeutic Exercise: 1: *SLR x 15 reps each LE 2: *s/l hip abduction x 15 reps each LE 3: *LTR x 10 reps each side 4: *bridges x 15 reps 5: *supine hamstring floss x 10 reps each LE 6: *edge of bed hip flexor stretch x 30 sec x 2 reps each LE Skilled Intervention: Patient was educated in proper exercise technique and purpose for exercises. Reviewed and educated patient on additions/changes for home exercise program as above (*). Skilled judgment was used in selection of appropriate interventions. Correct performance of therapeutic exercises was facilitated with verbal, visual, and tactile cuing. Educated patient on rationale for performing exercises in regards to decreasing fatigue , improving fitness, increase ease of ADL, and ROM and function . Patient education as noted. Neuromuscular Re-Education: 1: *hooklying hip flexion isometric alt UE/LE x 5 sec hold x 20 reps Skilled Intervention: Skilled judgment used to assess appropriate program for balance and coordination activity. Education in proprioceptive/kinesthetic awareness during standing and dynamic activities. Reviewed and educated patient on additions/changes for home program as noted above with an (*). Correct performance of home program was facilitated with verbal, visual, and tactile cueing. Patient education as noted. Self-Shelter Management: 1: Patient educated on impairments noted this visit, discussed possible causes of pain, discussed treatment to address impairments to improve pain and function 2: Patient educated on plan of care and treatment 3: Patient educated on HEP and importance of compliance Skilled Intervention: Skilled judgment in the selection of proper modification for activity of daily living/home management based on clinical presentation, deficits, and needs. Reviewed patient specific diagnosis in relation to activities of daily living/home management. Activity progression based on professional judgement. Billing * Evaluation Low Complexity: 1 Unit Therapeutic Exercise Treatment Minutes: 15 Neuromuscular Re-Education Treatment Minutes: 4 Self-Care/Home Management Treatment Minutes: 5 Skilled Treatment Time Minutes (timed and untimed codes): 43 Total Session Time (minutes): 43 Session Start Time : 1254 Session Stop Time : 1337 Chery Land PT, DPT CNOV Observed: 02/03/2025 11:40 AM Status: COMPLETED Source: [facility] Office Visit (SPSNAV) JACQUIE LANTIGUA ([id number]) 1965 M Date Time Provider Department 02/03/25 11:40 AM MALIHA BERG SPSNAV During your visit today, we recorded the following information about you: Maliha Berg MD 02/03/2025 12:04 PM Signed SPINE SURGERY FOLLOW UP This is an in-person visit. SERVICE DATE: 02/03/2025 SURGERY DATE: 01/12/2025 Jacquie Lantigua is seen for 3 week post operative follow up. Jacquie Lantigua is a pleasant 59-year-old gentleman is here in spine surgery clinic for 3 week postoperative follow-up visit. He underwent left L5-S1 discectomy with root foraminotomy on 01/12/2025. He was evaluated on 08/20/2020 with a history of lower back and left leg pain which is started in February 2024 without any history of injury or fall. Pain was radiating to left lower extremity up to the feet more towards big toe. Pain was constant, aggravated by prolonged sitting and nighttime. Pain was minimally better with activity. He also noticed numbness over left lower extremity more intense over left chavez and feet. Denied right leg pain or numbness. Denied weakness. Denied bowel or bladder dysfunction. Today, he is doing well overall. He is still complaining of back pain and occasional left leg pain. Pain medication and muscle significantly helped. Denies drainage from the incision or fever Known history of diabetes mellitus. Last A1c was 7.1. Currently taking Percocet and Robaxin which helps his pain. PAIN EVALUATION 02/02/2025 1700 02/03/2025 1120 Pain Level: 8 9 Pain Location: Buttocks-Left Back-Lower leg- left Description: Aching;Pulsating;Radiating;Sharp;Shooting;Stabbing/Not Incision;Stiffness;Tightness;Tingling Shooting;Throbbing;Sharp Duration Units: Months -- Frequency: Intermittent Intermittent Intervention/Comfort measure: Medication;Cold;Exercise Medication;Reposition;Relaxation;Cold Comments: Started in february ,,sciatic pain left hip down left leg all the way to big toe left side ,stabbing pain left of calf down to left side of ankle -- Pain Ratio: Pain in the back is greater than in the leg ANTIPLATELET OR ANTICOAGULATION STATUS: No Patient Entered Questionnaires 02/02/2025 Spine Questions Pain Location: Other Pain Duration: 1 to 5 years Pain over last 6 months: Every day or nearly every day in the past 6 months Symptoms from neck/cervical spine: No Employment Status: Working now Involved in law suit/legal claim: No PROMIS Score Percentiles 02/02/2025 Physical Health Physical Function Percentile 8 Sleep Percentile 14 Fatigue Percentile 46 Pain Interference Percentile 4 02/02/2025 PROMIS SOCIAL ROLE SCORE Social Role Satisfaction Percentile 14 12/28/2024 PROMIS Global Health Scale Physical Health Percentile 7 Mental Health Percentile 5 Patient-reported Percentiles provide an indication of how the patient's score ranks in relation to the general population. Higher percentile rankings indicate better function/quality of life. 50th percentile is the average of the general population and indicates half of respondents had a worse score. Descriptive Summary for PROMIS Physical Function T-score = 36 (Percentile 8) Much difficulty - Carry a laundry basket up a flight of stairs. Some difficulty - Walk at a normal speed. Unable - Walk more than a mile (1.6 km). Depression Screenin02/02/2025 PHQ-9 Score 7 02/02/2025 PHQ-9 Self-harm Question Question 9 Not at all PHQ-9 Self-Harm (Item 9) response options: 0 Not at all 1 Several days 2 More than half the days 3 Nearly every day PHQ-9 Levels: 0-4 No to mild depression 5-9 Mild depression 10-14 Moderate depression 15-19 Moderately severe depression 20-27 Severe depression PHYSICAL EXAM: There were no vitals taken for this visit. GENERAL APPEARANCE: Well nourished, well developed, and no apparent distress. NEURO PSYCH: Patient oriented to person, place, and time. Mood pleasant. Benign affect. CARDIOVASCULAR: Palpable pulses. No edema noted. No varicosities. SKIN: Head, neck, trunk, and extremities dry, intact and without lesions. LYMPHATICS: No palpable nodes in cervical or axillae areas. Groin exam deferred. MUSCULOSKELETAL VISUAL INSPECTION CERVICAL: WNL THORACIC: WNL LUMBAR: Lumbar incision is healing well. No signs of infection PALPATION: SPINOUS PROCESS: No pain. PARASPINALS: No pain. MUSCLE BULK: Normal and symmetrical in the upper AND lower extremities. MUSCLE TONE: Normal. MOTOR: 5/5 in all muscle groups. SENSORY: Normal sensory exam GAIT: Antalgic DATA REVIEW [facility] records independently reviewed Imaging and outside records independently reviewed ASSESSMENT/PLAN Jacquie Lantigua is a pleasant 59-year-old gentleman is here in spine surgery clinic for 3 week postoperative follow-up visit. He underwent left L5-S1 discectomy with root foraminotomy on 01/12/2025. He was evaluated on 08/20/2020 with a history of lower back and left leg pain which is started in February 2024 without any history of injury or fall. Pain was radiating to left lower extremity up to the feet more towards big toe. Pain was constant, aggravated by prolonged sitting and nighttime. Pain was minimally better with activity. He also noticed numbness over left lower extremity more intense over left chavez and feet. Denied right leg pain or numbness. Denied weakness. Denied bowel or bladder dysfunction. Today, he is doing well overall. He is still complaining of back pain and occasional left leg pain. Pain medication and muscle significantly helped. Denies drainage from the incision or fever Known history of diabetes mellitus. Last A1c was 7.1. Currently taking Percocet and Robaxin which helps his pain. Neurological examination showed well-healed lumbar incision. No signs of infection. No motor weakness. Stable gait. Discussed clinical finding. Recommended physical therapy, which is ordered. Recommended to increase his activities as tolerated, avoid lifting weight more than 15 to 20 pounds for another 3 weeks. As per request, Percocet prescription sent to the pharmacy. No further narcotic prescription from us. Recommended to follow-up with the pain management/primary care physician for pain medications. Robaxin refill sent to pharmacy Follow-up in spine surgery clinic at 4 months for reassessment The majority of the visit was spent counseling and/or coordinating care for the patient. The patient was counseled regarding back pain, leg pain, lumbar disc herniation, lumbar foraminal stenosis, lumbar discectomy, lumbar foraminotomy, back strengthening exercises, physical therapy, pain medications. Total face to face time was 20 minutes. By signing my name below, Jagjit Rivera MA Student, attest that this documentation has been prepared under the direction and in the presence of Dr. Berg Electronically signed, YAO Foreman Scribe February 03, 2025 11:23 AM Provider Attestation: Maliha Rivera MD personally performed the services described in this documentation. All medical record entries made by the scribe were at my direction and in my presence. I have reviewed the chart and discharge instructions (if applicable) and agree that the record reflects my personal performance and is accurate and complete. Electronically Signed: Maliha Berg MD, February 03, 2025 SIGNATURE: Maliha Berg MD PATIENT NAME: Jacquie Lantigua DATE: February 03, 2025 TIME: 11:24 AM PAGER: Allergies As of Date: 02/03/2025 Noted Allergy Reaction HUMIRA (ADALIMUMAB) 08/20/2017 8 - GI Upset METHOTREXATE 05/21/2019 16 - Unknown RED DYE 07/04/2002 16 - Unknown Date Reviewed: 02/03/2025 Reviewed by: Jackie Linares OCCA - Fully Assessed Reason for Visit: Post Op Follow Up [3947] Primary Visit Diagnosis:Chronic bilateral low back pain with left-sided sciatica [G89.29, M54.42] Order(s):CONSULT TO PHYSICAL THERAPY [9032] Order #: [id number]: 1 FUTURE oxyCODONE-acetaminophen (PERCOCET) 5-325 mg tabletTake 1 tablet by mouth every 4 hours as needed for pain (for pain.) for up to 7 days.Disp: 21 tabletRfl: 0 methocarbamol (ROBAXIN) 500 mg tabletTake 1 tablet by mouth three times a day.Disp: 90 tabletRfl: 0 Prescriptions as of 02/03/2025 - oxyCODONE-acetaminophen (PERCOCET) 5-325 mg tablet Take 1 tablet by mouth every 4 hours as needed for pain (for pain.) for up to 7 days. - methocarbamol (ROBAXIN) 500 mg tablet Take 1 tablet by mouth three times a day. - methocarbamol (ROBAXIN) 750 mg tablet Take 1 tablet by mouth three times a day. - tiZANidine (ZANAFLEX) 4 mg tablet 4 mg. - HUMALOG U-100 INSULIN 100 unit/mL injection INJECT 90 UNITS DAILY VIA INSULIN PUMP - gabapentin (NEURONTIN) 400 mg capsule Take 800 mg by mouth. 3 x times dily - famotidine (PEPCID) 20 mg tablet Take 1 tablet by mouth two times a day. - rifAMPin (RIFADIN) 300 mg capsule Take 2 pills once monthly - ofloxacin (FLOXIN) 400 mg tablet Take 1 pill once monthly - Minocycline HCl 100 mg tablet Take 1 pill once monthly - triamcinolone acetonide (KENALOG) 0.1 % cream Apply 1 application to affected area two times a day. (No more than 21 days per month) - fluticasone (FLONASE) 50 mcg/actuation nasal spray Use in the nose. - icosapent ethyl (VASCEPA) 1 gram Take 1 g by mouth. 2 caps in the AM and 2 caps in the PM - levothyroxine (SYNTHROID) 50 mcg tablet TAKE 2 TABLETS DAILY - rosuvastatin (CRESTOR) 20 mg tablet TAKE ONE AND ONE-HALF TABLETS ONCE DAILY - ibuprofen (MOTRIN) 800 mg tablet Take 800 mg by mouth every 6 hours as needed. - cyclobenzaprine (FLEXERIL) 10 mg tablet Take 10 mg by mouth three times daily as needed. - PROAIR HFA 90 mcg/actuation inhaler Inhale 2 Puffs as instructed as needed. - ADVAIR HFA 115-21 mcg/actuation inhaler Inhale 4 Puffs as instructed once daily. - MUCINEX 600 mg 12 hr tablet Take 2 tablets by mouth once daily as needed. - Subcutaneous Insulin Pump (ACCU-CHEK SPIRIT INSULIN PUMP) misc Basal rates: 24:00 --1.6units/hr; 0300:-2.3units/hr;06:00-1.8;11:00-1.8;12:00-2.0;16:00-2.2;19:00-2.7;21:00-2.4 ;22:00-1.6. Bolus: 2 unit/6 Gms CHO each meal; correction : 1 unit every 25 mg > 125 mg/dl. Eva hein. hrd: tmp bas at 80% - lisinopril (ZESTRIL) 2.5 mg tablet Take 4 tablets by mouth once daily. - aspirin, enteric coated (ECOTRIN LOW STRENGTH) 81 mg ORAL EC tablet Take 1 tablet by mouth once daily. - fluoxetine hcl(PROZAC 20 MG CAP) 3 tabs daily - ONE TOUCH ULTRA TEST STRIPS chekc 6-8 timea a day(insulin pump) - ONE TOUCH FINE POINT LANCET uses 6-8 a day - CENTRUM ECHINACEA CAPSULE 100MG PO Problem List As Of Date 02/03/2025 Noted Resolved Type 1 diabetes mellitus with other specified c*07/20/2002 MIXED HYPERLIPIDEMIA [E78.2] 06/12/2004 HYPOPOTASSEMIA [E87.6] 06/12/2004 ED. [N52.9] 07/22/2005 Peyronie's. [N48.89] 08/08/2005 ABNORMAL THYROID FUNCT STUDY (neg MCAB) [R94.6] 02/03/2006 11/27/2018 acquired hypothyroidism [E03.8] 03/05/2011 11/27/2018 Diabetes mellitus type 1, uncontrolled, without*02/13/2016 11/27/2018 Adult onset hypothyroidism [E03.8] 02/13/2016 11/27/2018 Background diabetic retinopathy (HCC) [E11.3299]02/13/2016 Primary hypertension [I10] 12/30/2024 Acquired hypothyroidism [E03.9] 12/30/2024 Moderate asthma without complication [J45.909] 12/30/2024 Obesity, Class I, BMI 30-34.9 [E66.811] 01/06/2025 Hard to intubate [T88.4XXA] 01/12/2025 Prescriptions ordered this encounter Disp Refills Start End OXYCODONE-ACETAMINOPHEN 5 MG-325 MG * 21 t* 0 02/03/2025 02/10/2025 Route: ORAL Sig: Take 1 tablet by mouth every 4 hours as needed for pain (for pain.) for up to 7 days. METHOCARBAMOL 500 MG TABLET 90 t* 0 02/03/2025 03/05/2025 Route: ORAL Sig: Take 1 tablet by mouth three times a day. Encounter Status:Closed by MALIHA BERG on 02/03/25 PROGRESS Observed: 02/03/2025 11:23 AM Status: COMPLETED Source: [facility] HNO ID: [id number] Author: MALIHA BERG MD Service: ? Author Type: Physician Type: Progress Notes Filed: 02/03/2025 12:04 Note Text: SPINE SURGERY FOLLOW UP This is an in-person visit. SERVICE DATE: 02/03/2025 SURGERY DATE: 01/12/2025 Jacquie Lantigua is seen for 3 week post operative follow up. Jacquie Lantigua is a pleasant 59-year-old gentleman is here in spine surgery clinic for 3 week postoperative follow-up visit. He underwent left L5-S1 discectomy with root foraminotomy on 01/12/2025. He was evaluated on 08/20/2020 with a history of lower back and left leg pain which is started in February 2024 without any history of injury or fall. Pain was radiating to left lower extremity up to the feet more towards big toe. Pain was constant, aggravated by prolonged sitting and nighttime. Pain was minimally better with activity. He also noticed numbness over left lower extremity more intense over left chavez and feet. Denied right leg pain or numbness. Denied weakness. Denied bowel or bladder dysfunction. Today, he is doing well overall. He is still complaining of back pain and occasional left leg pain. Pain medication and muscle significantly helped. Denies drainage from the incision or fever Known history of diabetes mellitus. Last A1c was 7.1. Currently taking Percocet and Robaxin which helps his pain. PAIN EVALUATION 02/02/2025 1700 02/03/2025 1120 Pain Level: 8 9 Pain Location: Buttocks-Left Back-Lower leg- left Description: Aching;Pulsating;Radiating;Sharp;Shooting;Stabbing/Not Incision;Stiffness;Tightness;Tingling Shooting;Throbbing;Sharp Duration Units: Months -- Frequency: Intermittent Intermittent Intervention/Comfort measure: Medication;Cold;Exercise Medication;Reposition;Relaxation;Cold Comments: Started in february ,,sciatic pain left hip down left leg all the way to big toe left side ,stabbing pain left of calf down to left side of ankle -- Pain Ratio: Pain in the back is greater than in the leg ANTIPLATELET OR ANTICOAGULATION STATUS: No Patient Entered Questionnaires 02/02/2025 Spine Questions Pain Location: Other Pain Duration: 1 to 5 years Pain over last 6 months: Every day or nearly every day in the past 6 months Symptoms from neck/cervical spine: No Employment Status: Working now Involved in law suit/legal claim: No PROMIS Score Percentiles 02/02/2025 Physical Health Physical Function Percentile 8 Sleep Percentile 14 Fatigue Percentile 46 Pain Interference Percentile 4 02/02/2025 PROMIS SOCIAL ROLE SCORE Social Role Satisfaction Percentile 14 12/28/2024 PROMIS Global Health Scale Physical Health Percentile 7 Mental Health Percentile 5 Patient-reported Percentiles provide an indication of how the patient's score ranks in relation to the general population. Higher percentile rankings indicate better function/quality of life. 50th percentile is the average of the general population and indicates half of respondents had a worse score. Descriptive Summary for PROMIS Physical Function T-score = 36 (Percentile 8) Much difficulty - Carry a laundry basket up a flight of stairs. Some difficulty - Walk at a normal speed. Unable - Walk more than a mile (1.6 km). Depression Screenin02/02/2025 PHQ-9 Score 7 02/02/2025 PHQ-9 Self-harm Question Question 9 Not at all PHQ-9 Self-Harm (Item 9) response options: 0 Not at all 1 Several days 2 More than half the days 3 Nearly every day PHQ-9 Levels: 0-4 No to mild depression 5-9 Mild depression 10-14 Moderate depression 15-19 Moderately severe depression 20-27 Severe depression PHYSICAL EXAM: There were no vitals taken for this visit. GENERAL APPEARANCE: Well nourished, well developed, and no apparent distress. NEURO PSYCH: Patient oriented to person, place, and time. Mood pleasant. Benign affect. CARDIOVASCULAR: Palpable pulses. No edema noted. No varicosities. SKIN: Head, neck, trunk, and extremities dry, intact and without lesions. LYMPHATICS: No palpable nodes in cervical or axillae areas. Groin exam deferred. MUSCULOSKELETAL VISUAL INSPECTION CERVICAL: WNL THORACIC: WNL LUMBAR: Lumbar incision is healing well. No signs of infection PALPATION: SPINOUS PROCESS: No pain. PARASPINALS: No pain. MUSCLE BULK: Normal and symmetrical in the upper AND lower extremities. MUSCLE TONE: Normal. MOTOR: 5/5 in all muscle groups. SENSORY: Normal sensory exam GAIT: Antalgic DATA REVIEW [facility] records independently reviewed Imaging and outside records independently reviewed ASSESSMENT/PLAN Jacquie Lantigua is a pleasant 59-year-old gentleman is here in spine surgery clinic for 3 week postoperative follow-up visit. He underwent left L5-S1 discectomy with root foraminotomy on 01/12/2025. He was evaluated on 08/20/2020 with a history of lower back and left leg pain which is started in February 2024 without any history of injury or fall. Pain was radiating to left lower extremity up to the feet more towards big toe. Pain was constant, aggravated by prolonged sitting and nighttime. Pain was minimally better with activity. He also noticed numbness over left lower extremity more intense over left chavez and feet. Denied right leg pain or numbness. Denied weakness. Denied bowel or bladder dysfunction. Today, he is doing well overall. He is still complaining of back pain and occasional left leg pain. Pain medication and muscle significantly helped. Denies drainage from the incision or fever Known history of diabetes mellitus. Last A1c was 7.1. Currently taking Percocet and Robaxin which helps his pain. Neurological examination showed well-healed lumbar incision. No signs of infection. No motor weakness. Stable gait. Discussed clinical finding. Recommended physical therapy, which is ordered. Recommended to increase his activities as tolerated, avoid lifting weight more than 15 to 20 pounds for another 3 weeks. As per request, Percocet prescription sent to the pharmacy. No further narcotic prescription from us. Recommended to follow-up with the pain management/primary care physician for pain medications. Robaxin refill sent to pharmacy Follow-up in spine surgery clinic at 4 months for reassessment The majority of the visit was spent counseling and/or coordinating care for the patient. The patient was counseled regarding back pain, leg pain, lumbar disc herniation, lumbar foraminal stenosis, lumbar discectomy, lumbar foraminotomy, back strengthening exercises, physical therapy, pain medications. Total face to face time was 20 minutes. By signing my name below, Jagjit Rivera MA Student, attest that this documentation has been prepared under the direction and in the presence of Dr. Berg Electronically signed, YAO Foreman, Scribe February 03, 2025 11:23 AM Provider Attestation: Maliha Rivera MD personally performed the services described in this documentation. All medical record entries made by the scribe were at my direction and in my presence. I have reviewed the chart and discharge instructions (if applicable) and agree that the record reflects my personal performance and is accurate and complete. Electronically Signed: Maliha Berg MD, February 03, 2025 SIGNATURE: Maliha Berg MD PATIENT NAME: Jacquie Lantigua DATE: February 03, 2025 TIME: 11:24 AM PAGER: MIRIAN Observed: 01/17/2025 12:00 AM Status: COMPLETED Source: [facility] Telephone (NSFRVW) JACQUIE LANTIGUA ([id number]) 1965 M Date Time Provider Department 01/17/25 MALIHA BERG NSFRVW During your visit today, we recorded the following information about you: Gissell Hu 01/17/2025 11:22 AM Signed Medication for pain is not working as is should patient is still having lots of discomfort. Patient wanted to know when the holder patch needs to come off. Patient # [phone] Kris Kovacs APRN.[employer] SUPPL[employer] 01/17/2025 11:41 AM Signed Called and spoke with Jacquie, he states he was able to sleep last night for the first time since surgery. He states pain and spasms in his right leg have been what has bothered him the most but last night it did seem a little better. He is taking percocet and robaxin and utilizing ice packs. Advised at this time to continue current pain control regimen and be diligent about using ice packs. 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 He inquires about if he can remove surgical dressing because the nurse in the hospital told him 7 days but the discharge papers said 4, advised he may remove and shower and pat the incision dry with clean towel after, advised placing new dressing if the incision is draining but otherwise can leave open to air if it is not. Red flag symptoms were discussed. He verbalized understanding and is appreciative of phone call. Advised to call back with any further questions/concerns. Allergies As of Date: 01/17/2025 Noted Allergy Reaction HUMIRA (ADALIMUMAB) 08/20/2017 8 - GI Upset METHOTREXATE 05/21/2019 16 - Unknown RED DYE 07/04/2002 16 - Unknown Date Reviewed: 01/12/2025 Reviewed by: Saima Martinez RN - Fully Assessed Reason for Visit: Patient Question [1477] Medication Question [1478] Visit Diagnosis:Radiculopathy, lumbar region [M54.16] Prescriptions as of 02/16/2025 - methocarbamol (ROBAXIN) 500 mg tablet Take 1 tablet by mouth three times a day. - methocarbamol (ROBAXIN) 750 mg tablet Take 1 tablet by mouth three times a day. - tiZANidine (ZANAFLEX) 4 mg tablet 4 mg. - HUMALOG U-100 INSULIN 100 unit/mL injection INJECT 90 UNITS DAILY VIA INSULIN PUMP - gabapentin (NEURONTIN) 400 mg capsule Take 800 mg by mouth. 3 x times dily - famotidine (PEPCID) 20 mg tablet Take 1 tablet by mouth two times a day. - rifAMPin (RIFADIN) 300 mg capsule Take 2 pills once monthly - ofloxacin (FLOXIN) 400 mg tablet Take 1 pill once monthly - Minocycline HCl 100 mg tablet Take 1 pill once monthly - triamcinolone acetonide (KENALOG) 0.1 % cream Apply 1 application to affected area two times a day. (No more than 21 days per month) - fluticasone (FLONASE) 50 mcg/actuation nasal spray Use in the nose. - icosapent ethyl (VASCEPA) 1 gram Take 1 g by mouth. 2 caps in the AM and 2 caps in the PM - levothyroxine (SYNTHROID) 50 mcg tablet TAKE 2 TABLETS DAILY - rosuvastatin (CRESTOR) 20 mg tablet TAKE ONE AND ONE-HALF TABLETS ONCE DAILY - ibuprofen (MOTRIN) 800 mg tablet Take 800 mg by mouth every 6 hours as needed. - cyclobenzaprine (FLEXERIL) 10 mg tablet Take 10 mg by mouth three times daily as needed. - PROAIR HFA 90 mcg/actuation inhaler Inhale 2 Puffs as instructed as needed. - ADVAIR HFA 115-21 mcg/actuation inhaler Inhale 4 Puffs as instructed once daily. - MUCINEX 600 mg 12 hr tablet Take 2 tablets by mouth once daily as needed. - Subcutaneous Insulin Pump (ACCU-CHEK SPIRIT INSULIN PUMP) misc Basal rates: 24:00 --1.6units/hr; 0300:-2.3units/hr;06:00-1.8;11:00-1.8;12:00-2.0;16:00-2.2;19:00-2.7;21:00-2.4 ;22:00-1.6. Bolus: 2 unit/6 Gms CHO each meal; correction : 1 unit every 25 mg > 125 mg/dl. Whn wrk. hrd: tmp bas at 80% - lisinopril (ZESTRIL) 2.5 mg tablet Take 4 tablets by mouth once daily. - aspirin, enteric coated (ECOTRIN LOW STRENGTH) 81 mg ORAL EC tablet Take 1 tablet by mouth once daily. - fluoxetine hcl(PROZAC 20 MG CAP) 3 tabs daily - ONE TOUCH ULTRA TEST STRIPS chekc 6-8 timea a day(insulin pump) - ONE TOUCH FINE POINT LANCET uses 6-8 a day - CENTRUM ECHINACEA CAPSULE 100MG PO Problem List As Of Date 01/17/2025 Noted Resolved Type 1 diabetes mellitus with other specified c*07/20/2002 MIXED HYPERLIPIDEMIA [E78.2] 06/12/2004 HYPOPOTASSEMIA [E87.6] 06/12/2004 ED. [N52.9] 07/22/2005 Peyronie's. [N48.89] 08/08/2005 ABNORMAL THYROID FUNCT STUDY (neg MCAB) [R94.6] 02/03/2006 11/27/2018 acquired hypothyroidism [E03.8] 03/05/2011 11/27/2018 Diabetes mellitus type 1, uncontrolled, without*02/13/2016 11/27/2018 Adult onset hypothyroidism [E03.8] 02/13/2016 11/27/2018 Background diabetic retinopathy (HCC) [E11.3299]02/13/2016 Primary hypertension [I10] 12/30/2024 Acquired hypothyroidism [E03.9] 12/30/2024 Moderate asthma without complication [J45.909] 12/30/2024 Obesity, Class I, BMI 30-34.9 [E66.811] 01/06/2025 Hard to intubate [T88.4XXA] 01/12/2025 Prescriptions ordered this encounter Disp Refills Start End OXYCODONE-ACETAMINOPHEN 5 MG-325 MG * 28 t* 0 01/19/2025 01/26/2025 Route: ORAL Sig: Take 1 tablet by mouth every 6 hours as needed for pain for up to 7 days. Patient should start on January 19, 2025. Medications Discontinued During This Encounter Prescriptions - oxyCODONE-acetaminophen (PERCOCET) 5-325 mg tablet (Discontinued) Take 1 tablet by mouth every 6 hours as needed for pain for up to 7 days. Encounter Status:Closed by GISSELL HU on 02/16/25 CNPN Observed: 01/14/2025 12:00 AM Status: COMPLETED Source: [facility] Telephone (NECrowdProcessFV) JACQUIE LANTIGUA ([id number]) 1965 M Date Time Provider Department 01/14/25 MALIHA BERG NEADFV During your visit today, we recorded the following information about you: Juliet Ness 01/14/2025 9:04 AM Signed Pt phoned with updated fax number for Pt work excuse fax # [phone] attn Amari García RN 01/14/2025 9:15 AM Signed Letter faxed Allergies As of Date: 01/14/2025 Noted Allergy Reaction HUMIRA (ADALIMUMAB) 08/20/2017 8 - GI Upset METHOTREXATE 05/21/2019 16 - Unknown RED DYE 07/04/2002 16 - Unknown Date Reviewed: 01/12/2025 Reviewed by: Saima Martinez, CAMILA - Fully Assessed Reason for Visit: Updated Fax [Other] Prescriptions as of 01/14/2025 - methocarbamol (ROBAXIN) 750 mg tablet Take 1 tablet by mouth three times a day. - oxyCODONE-acetaminophen (PERCOCET) 5-325 mg tablet Take 1 tablet by mouth every 6 hours as needed for pain for up to 7 days. - tiZANidine (ZANAFLEX) 4 mg tablet 4 mg. - HUMALOG U-100 INSULIN 100 unit/mL injection INJECT 90 UNITS DAILY VIA INSULIN PUMP - gabapentin (NEURONTIN) 400 mg capsule Take 800 mg by mouth. 3 x times dily - famotidine (PEPCID) 20 mg tablet Take 1 tablet by mouth two times a day. - rifAMPin (RIFADIN) 300 mg capsule Take 2 pills once monthly - ofloxacin (FLOXIN) 400 mg tablet Take 1 pill once monthly - Minocycline HCl 100 mg tablet Take 1 pill once monthly - triamcinolone acetonide (KENALOG) 0.1 % cream Apply 1 application to affected area two times a day. (No more than 21 days per month) - fluticasone (FLONASE) 50 mcg/actuation nasal spray Use in the nose. - icosapent ethyl (VASCEPA) 1 gram Take 1 g by mouth. 2 caps in the AM and 2 caps in the PM - levothyroxine (SYNTHROID) 50 mcg tablet TAKE 2 TABLETS DAILY - rosuvastatin (CRESTOR) 20 mg tablet TAKE ONE AND ONE-HALF TABLETS ONCE DAILY - ibuprofen (MOTRIN) 800 mg tablet Take 800 mg by mouth every 6 hours as needed. - cyclobenzaprine (FLEXERIL) 10 mg tablet Take 10 mg by mouth three times daily as needed. - PROAIR HFA 90 mcg/actuation inhaler Inhale 2 Puffs as instructed as needed. - ADVAIR HFA 115-21 mcg/actuation inhaler Inhale 4 Puffs as instructed once daily. - MUCINEX 600 mg 12 hr tablet Take 2 tablets by mouth once daily as needed. - Subcutaneous Insulin Pump (ACCU-CHEK SPIRIT INSULIN PUMP) misc Basal rates: 24:00 --1.6units/hr; 0300:-2.3units/hr;06:00-1.8;11:00-1.8;12:00-2.0;16:00-2.2;19:00-2.7;21:00-2.4 ;22:00-1.6. Bolus: 2 unit/6 Gms CHO each meal; correction : 1 unit every 25 mg > 125 mg/dl. Eva hein. hrd: tmp bas at 80% - lisinopril (ZESTRIL) 2.5 mg tablet Take 4 tablets by mouth once daily. - aspirin, enteric coated (ECOTRIN LOW STRENGTH) 81 mg ORAL EC tablet Take 1 tablet by mouth once daily. - fluoxetine hcl(PROZAC 20 MG CAP) 3 tabs daily - ONE TOUCH ULTRA TEST STRIPS chekc 6-8 timea a day(insulin pump) - ONE TOUCH FINE POINT LANCET uses 6-8 a day - CENTRUM ECHINACEA CAPSULE 100MG PO Problem List As Of Date 01/14/2025 Noted Resolved Type 1 diabetes mellitus with other specified c*07/20/2002 MIXED HYPERLIPIDEMIA [E78.2] 06/12/2004 HYPOPOTASSEMIA [E87.6] 06/12/2004 ED. [N52.9] 07/22/2005 Peyronie's. [N48.89] 08/08/2005 ABNORMAL THYROID FUNCT STUDY (neg MCAB) [R94.6] 02/03/2006 11/27/2018 acquired hypothyroidism [E03.8] 03/05/2011 11/27/2018 Diabetes mellitus type 1, uncontrolled, without*02/13/2016 11/27/2018 Adult onset hypothyroidism [E03.8] 02/13/2016 11/27/2018 Background diabetic retinopathy (HCC) [E11.3299]02/13/2016 Primary hypertension [I10] 12/30/2024 Acquired hypothyroidism [E03.9] 12/30/2024 Moderate asthma without complication [J45.909] 12/30/2024 Obesity, Class I, BMI 30-34.9 [E66.811] 01/06/2025 Hard to intubate [T88.4XXA] 01/12/2025 Encounter Status:Closed by AMARI BLUE on 01/14/25 MIRIAN Observed: 01/13/2025 12:00 AM Status: COMPLETED Source: [facility] Telephone (NIQ) JACQUIE LANTIGUA ([id number]) 1965 M Date Time Provider Department 01/13/25 MALIHA BERG During your visit today, we recorded the following information about you: Eulalia Cerrato 01/13/2025 9:39 AM Signed Jacquie is calling Maliha Berg MD today to request a letter to be off work. 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 Patient asking for a letter to be off work for 6 weeks if possible. Patient would like to have letter faxed to employer. Patient will call back with a fax number. Please assist with writing the letter. Patient has been identified by name and birthdate. Duration of symptoms: N/A Person calling: self Call patient at: at home and on cell [phone] (home) [phone] (cell) Was an appointment scheduled: No Closing statement: Results or non-symptom based questions: Thank you for calling [facility], your call will be returned within the next business day. Edenilson Alvarez 01/13/2025 10:11 AM Signed Patient called back with fax number of [phone]. Amari Blue RN 01/14/2025 8:44 AM Signed Letter written Sent to my chart Number provided not working for fax Pt notified Allergies As of Date: 01/13/2025 Noted Allergy Reaction HUMIRA (ADALIMUMAB) 08/20/2017 8 - GI Upset METHOTREXATE 05/21/2019 16 - Unknown RED DYE 07/04/2002 16 - Unknown Date Reviewed: 01/12/2025 Reviewed by: Saima Martinez RN - Fully Assessed Reason for Visit: Letter [264] Prescriptions as of 01/14/2025 - methocarbamol (ROBAXIN) 750 mg tablet Take 1 tablet by mouth three times a day. - oxyCODONE-acetaminophen (PERCOCET) 5-325 mg tablet Take 1 tablet by mouth every 6 hours as needed for pain for up to 7 days. - tiZANidine (ZANAFLEX) 4 mg tablet 4 mg. - HUMALOG U-100 INSULIN 100 unit/mL injection INJECT 90 UNITS DAILY VIA INSULIN PUMP - gabapentin (NEURONTIN) 400 mg capsule Take 800 mg by mouth. 3 x times dily - famotidine (PEPCID) 20 mg tablet Take 1 tablet by mouth two times a day. - rifAMPin (RIFADIN) 300 mg capsule Take 2 pills once monthly - ofloxacin (FLOXIN) 400 mg tablet Take 1 pill once monthly - Minocycline HCl 100 mg tablet Take 1 pill once monthly - triamcinolone acetonide (KENALOG) 0.1 % cream Apply 1 application to affected area two times a day. (No more than 21 days per month) - fluticasone (FLONASE) 50 mcg/actuation nasal spray Use in the nose. - icosapent ethyl (VASCEPA) 1 gram Take 1 g by mouth. 2 caps in the AM and 2 caps in the PM - levothyroxine (SYNTHROID) 50 mcg tablet TAKE 2 TABLETS DAILY - rosuvastatin (CRESTOR) 20 mg tablet TAKE ONE AND ONE-HALF TABLETS ONCE DAILY - ibuprofen (MOTRIN) 800 mg tablet Take 800 mg by mouth every 6 hours as needed. - cyclobenzaprine (FLEXERIL) 10 mg tablet Take 10 mg by mouth three times daily as needed. - PROAIR HFA 90 mcg/actuation inhaler Inhale 2 Puffs as instructed as needed. - ADVAIR HFA 115-21 mcg/actuation inhaler Inhale 4 Puffs as instructed once daily. - MUCINEX 600 mg 12 hr tablet Take 2 tablets by mouth once daily as needed. - Subcutaneous Insulin Pump (ACCU-CHEK SPIRIT INSULIN PUMP) misc Basal rates: 24:00 --1.6units/hr; 0300:-2.3units/hr;06:00-1.8;11:00-1.8;12:00-2.0;16:00-2.2;19:00-2.7;21:00-2.4 ;22:00-1.6. Bolus: 2 unit/6 Gms CHO each meal; correction : 1 unit every 25 mg > 125 mg/dl. Eva hein. hrd: tmp bas at 80% - lisinopril (ZESTRIL) 2.5 mg tablet Take 4 tablets by mouth once daily. - aspirin, enteric coated (ECOTRIN LOW STRENGTH) 81 mg ORAL EC tablet Take 1 tablet by mouth once daily. - fluoxetine hcl(PROZAC 20 MG CAP) 3 tabs daily - ONE TOUCH ULTRA TEST STRIPS chekc 6-8 timea a day(insulin pump) - ONE TOUCH FINE POINT LANCET uses 6-8 a day - CENTRUM ECHINACEA CAPSULE 100MG PO Problem List As Of Date 01/13/2025 Noted Resolved Type 1 diabetes mellitus with other specified c*07/20/2002 MIXED HYPERLIPIDEMIA [E78.2] 06/12/2004 HYPOPOTASSEMIA [E87.6] 06/12/2004 ED. [N52.9] 07/22/2005 Peyronie's. [N48.89] 08/08/2005 ABNORMAL THYROID FUNCT STUDY (neg MCAB) [R94.6] 02/03/2006 11/27/2018 acquired hypothyroidism [E03.8] 03/05/2011 11/27/2018 Diabetes mellitus type 1, uncontrolled, without*02/13/2016 11/27/2018 Adult onset hypothyroidism [E03.8] 02/13/2016 11/27/2018 Background diabetic retinopathy (HCC) [E11.3299]02/13/2016 Primary hypertension [I10] 12/30/2024 Acquired hypothyroidism [E03.9] 12/30/2024 Moderate asthma without complication [J45.909] 12/30/2024 Obesity, Class I, BMI 30-34.9 [E66.811] 01/06/2025 Hard to intubate [T88.4XXA] 01/12/2025 Encounter Status:Closed by AMARI BLUE on 01/14/25 CNCO Observed: 01/13/2025 12:00 AM Status: COM PLETED Source: [facility] Letter Text ANES POSTPROC EVAL Observed: 01/12/2025 12:41 PM Status: COMPLETED Source: [facility] HNO ID: [id number] Author: RUDDY DAVALOS MD Service: Anesthesiology Author Type: Anesthesiologist Type: Anesthesia Postprocedure Evaluation Filed: 01/12/2025 12:41 Note Text: POST ANESTHESIA EVALUATION NOTE : 1965 Procedure Summary Date: 01/12/25 Room / Location: OR02 / [facility] OR Anesthesia Start: 727 Anesthesia Stop: 100 Procedure: LAMINOTOMY W/ DECOMPRESSION OF NERVE ROOT(S) PARTIAL FACETECTOMY FORAMINOTOMY AND/OR EXCISION OF HERNIATED INTERVERTEBRAL DISC 1 INTERSPACE LUMBAR (Left: Spine Lumbar) Diagnosis: Intervertebral disc disorder with radiculopathy of lumbar region (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]) Surgeons: Maliha Berg MD Responsible Provider: Ruddy Davalos MD Anesthesia Type: general ASA Status: 3 Anesthesia Type: general Airway Type: ETT Last Vitals Vitals Value Taken Time BP 132/75 01/12/25 1238 Temp 36.3 ?C (97.3 ?F) 01/12/25 1238 HR SpO2 80 01/12/25 1225 Resp 16 01/12/25 1238 SpO2 99 % 01/12/25 1238 Vitals shown include unfiled device data. Post Anesthesia Patient Status Patient Evaluation: PACU. PACU/ICU Patient Condition: stable. Anticipated Disposition: inpatient floor planned admission. Neurological Status: aware and responsive. Pulmonary Status: breathing comfortably on room air Airway Control: returned to baseline unsupported. Cardiovascular Status: stable. Pain Management: clinically adequate - multimodal analgesia pain management approach Postoperative Hydration: acceptable. Intraoperative Events: no significant anesthesia events Recommendation: continue current plan of care and further care per PACU/ICU/floor team. Anesthesia Observations No Documentation SIGNATURE: Ruddy Davalos MD PATIENT NAME: Jacquie Lantigua DATE: January 12, 2025 TIME: 12:41 PM CSN: [id number] BRIEF OP NOT Observed: 01/12/2025 9:32 AM Status: COMPLETED Source: [facility] HNO ID: [id number] Author: MALIHA BERG MD Service: Neurosurgery Author Type: Physician Type: Brief Op Note Filed: 01/12/2025 09:34 Note Text: BRIEF OPERATIVE / PROCEDURE NOTE LOG ID: [id number] SURGERY/PROCEDURE DATE: 01/12/2025 INCISION/PROCEDURE START TIME: 8:01 AM INCISION CLOSE/PROCEDURE END TIME: 09.40 AM SURGEON(S)/PROCEDURALIST(S) AND SENSOR TECHNICIAN(S): Surgeons and Role: * Maliha Berg MD - Primary * Corona Thrasher MD No Additional Staff SURGERY/PROCEDURE(S): Left L5-S1 discectomy with root foraminotomy Operative microscope used for discectomy and foraminotomy ANESTHESIA: General FINDINGS: Central, left paracentral/foraminal disc herniation at L5-S1 level with a severe left L5 root compression ESTIMATED BLOOD LOSS: 10 mls SPECIMENS: None COMPLICATIONS: None DRAINS: None CLOSURE TECHNIQUE: Primary PRE-OP/PRE-PROCEDURE DIAGNOSIS: Left L5-S1 disc herniation with radiculopathy POST-OP/POST-PROCEDURE DIAGNOSIS: Left L5-S1 disc herniation with radiculopathy SIGNATURE: Maliha Berg MD PATIENT NAME: Jacquie Lantigua DATE: January 12, 2025 TIME: 9:32 AM XR VERIFY LEVEL L-SPINE-NB Observed: 10/2025 8:21 AM Status: F Source: [facility] * * *Final Report* * * DATE OF EXAM: Jan 12 2025 8:21AM [place] 5642 - XR VERIFY LEVEL L-SPINE-NB / PROCEDURE REASON: Intervertebral disc disorder with radiculopathy of lumbar region * * * * Physician Interpretation * * * * TECHNIQUE: Single lateral image of the lumbar spine COUNTING REFERENCE: Lumbosacral junction Intraoperative image labeled #1 has localizing needle within dorsal soft tissues at the level of L5. RESULT: A single lateral image is obtained intraoperatively and labeled #2 for surgical planning. A localizing surgical instrument is noted, L5/S1. Image annotated with vertebral body levels and confirmed with the responsible surgeon at the time of interpretation. IMPRESSION: OPERATIVE ASSESSMENT COMMUNICATION: Localization level(s) confirmed with: Dr. Berg on 01/12/2025 at 0820, via phone and Skype during the surgical procedure. Central Supply Technician Supervisor[facility] Transcribe Date/Time: Jan 12 2025 8:27A Dictated by : KENNEDY SCHMIDT MD This examination was interpreted and the report reviewed and electronically signed by: KENNEDY SCHMIDT MD on Jan 12 2025 8:29AM EST [id number] XR LUMBAR SPECIFY 1V Observed: 7:59 AM Status: F Source: [facility] * * *Final Report* * * DATE OF EXAM: Jan 12 2025 7:59AM [place] 5234 - XR LUMBAR SPECIFY 1V / PROCEDURE REASON: Intervertebral disc disorder with radiculopathy of lumbar region * * * * Physician Interpretation * * * * TECHNIQUE: Single lateral image of the lumbar spine COUNTING REFERENCE: Lumbosacral junction Intraoperative image labeled #1 has localizing needle within dorsal soft tissues at the level of L5. RESULT: A single lateral image is obtained intraoperatively and labeled #2 for surgical planning. A localizing surgical instrument is noted, L5/S1. Image annotated with vertebral body levels and confirmed with the responsible surgeon at the time of interpretation. IMPRESSION: OPERATIVE ASSESSMENT COMMUNICATION: Localization level(s) confirmed with: Dr. Berg on 01/12/2025 at 0820, via phone and Skype during the surgical procedure. Central Supply Technician Supervisor: [facility] Transcribe Date/Time: Jan 12 2025 8:27A Dictated by : KENNEDY SCHMIDT MD This examination was interpreted and the report reviewed and electronically signed by: KENNEDY SCHMIDT MD on Jan 12 2025 8:29AM EST [id number] ANES PROCEDURE NOTE Observed: 01/12/2025 7:55 AM Status: COMPLETED Source: [facility] HNO ID: [id number] Author: OSITO KOEHLER AA Service: Anesthesiology Author Type: Fisher Line Type: Anesthesia Procedure Notes Filed: 01/12/2025 07:56 Note Text: ANESTHESIOLOGY PROCEDURE NOTE Airway General Information Procedure Start Time/Medication Administration: 01/12/2025 7:39 AM Procedure End Time: 01/12/2025 7:40 AM Patient location during procedure: OR Timeout Performed Pre-procedure: timeout performed Consent Obtained: Yes Patient identity confirmed: arm band and patient Staffing CAA: Osito Koehler AA Performed by: CAA and anesthesiologist Indications and Patient Condition Indications for airway management: anesthesia Preoxygenated: yes anesthesia circuit Patient position: sniffing Method: asleep Cricoid Pressure: Yes Manual In-Line Stabilization: No Difficult Mask: No Airway Accessory: oral airway Final Airway Details Final airway type: endotracheal airway Final Endotracheal Airway: ETT Cuffed: yes Successful intubation technique: video laryngoscopy Devices used: [employer] Endotracheal tube insertion site: oral Blade: Gaston Blade size: #3 ETT size (mm): 7.5 Measured from: lips Measurement (cm): 23 Placement verified by: chest auscultation and capnometry Cormack-Lehane Classification: grade I - full view of glottis Number of attempts at approach: 2 Ventilation between attempts: BVM Other Attempts Unsuccessful attempted endotracheal techniques: direct laryngoscopy Failed airway: no Difficult airway SIGNATURE: MIL Hong PATIENT NAME: Jacquie Lantigua DATE: January 12, 2025 TIME: 7:55 AM CSN: [id number] OPERATIVE NO Observed: 01/12/2025 7:28 AM Status: COMPLETED Source: [facility] HNO ID: [id number] Author: MALIHA BERG MD Service: Neurosurgery Author Type: Physician Type: Operative Report Filed: 01/12/2025 09:38 Note Text: OPERATIVE/PROCEDURE REPORT LOG ID: [id number] SURGERY/PROCEDURE DATE: 01/12/2025 INCISION/PROCEDURE START TIME: 8:01 AM INCISION CLOSE/PROCEDURE END TIME: 09.40 AM SURGEON(S)/PROCEDURALIST(S) AND SENSOR TECHNICIAN(S): Surgeons and Role: * Maliha Berg MD - Primary * Corona Thrasher MD No Additional Staff ANESTHESIA: General PRE-OP/PRE-PROCEDURE DIAGNOSIS: Left L5-S1 disc herniation with radiculopathy POST-OP/POST-PROCEDURE DIAGNOSIS: Left L5-S1 disc herniation with radiculopathy SURGERY/PROCEDURE(S): Left L5-S1 discectomy with root foraminotomy Operative microscope used for discectomy and foraminotomy FINDINGS: Central, left paracentral/foraminal disc herniation at L5-S1 level with a severe left L5 root compression SURGERY/PROCEDURE DETAILS: After identifying the correct patient, he was taken to the operating room. While he was on the transport [place], he underwent smooth and adequate general anesthesia. All pressure points were padded adequately. He was placed prone over the Ugo table. Incision was marked over L5-S1 level. Received 2 gms of Ancef as preoperative antibiotics. Back was prepped and draped in usual sterile manner. Pre operative time out was done. Incision was made and carried down to the subcutaneous tissue level. Facia opened on the midline. L5-S1 spinous process, partial L5, S1 lamina was exposed left side by elevating the muscles. Self retaining retractor was placed. Intra operative x ray was done to confirm the L5-S1 disk space level. Level was marked with permanent marker. fuel cell engineer radiologist reviewed the image remotely and confirmed the level. Left inferior few mm of L5 laminotomy was done with drill. Facets were mildly hypertrophied at L5-S1 levels. Ligamentum flavum was very thick which was removed using Kerrison rongeur. Microscope was brought into the field at this time and further procedure was done with microscope. Wide left L5, S1 root foraminotomy was done. Large central, left paracentral / foraminal disc herniation was causing severe compression over left L5 root. L5-S1 annulotomy was done. Disc was mobilized with nerve hook and disc herniation was removed. Foraminal disc herniation was mobilized with down pushing curette and removed. Multiple small disc fragment removed from the L5-S1 disc space. After discectomy left L5, S1 root was free of compression. No CSF leak was noticed with valsalva. Microscope was brought out from the field. Wound was irrigated with copious mount of irrigation. Hemostasis was achieved with bipolar cautery. Wound was closed in layers, #1 vicryl for fascia, 2- vicryl for subcutaneous tissue and 3-0 chromic for skin in a subcuticular fashion. Tincture benzoin and steri strip dressing was done. Patient was turned over the bed, awakened, extubated in the operating room. He was escorted to the recovery room in a stable condition ESTIMATED BLOOD LOSS: 10 mls SPECIMENS: None IMPLANTABLE DEVICES: NONE DRAINS: None COMPLICATIONS: None CLOSURE TECHNIQUE: Primary PARTICIPATION IN SURGERY/PROCEDURE: I, primary surgeon/proceduralist performed the procedure with assistance. No qualified resident was available. Dr. Anna Marie MD assisted the surgical procedure. She exposed and performed laminotomy with my supervision. She closed the surgical wound. I was scrubbed for the whole surgical procedure. SIGNATURE: Maliha Berg MD PATIENT NAME: Jacquie Lantigua DATE: January 12, 2025 TIME: 9:34 AM HISTORY PHYSICAL Observed: 01/12/2025 7:17 AM Status: COMPLETED Source: [facility] ID: [id number] Author: MALIHA BERG MD Service: Neurosurgery Author Type: Physician Type: H&P Filed: 01/12/2025 07:17 Note Text: UPDATED HISTORY AND PHYSICAL EXAMINATION SERVICE DATE: 01/12/2025 SERVICE TIME: 7:17 AM PHYSICAL EXAM MUST BE COMPLETED ON ADMISSION The History and Physical (completed in the past 30 days) has been reviewed and the patient has been examined. The contents accurately reflect the patient's condition with the following additions or revisions since the HANDP was completed. Examination indicates no changes. This HANDP can be found in the Electronic Medical Record dated 12/23/2024 I again discussed about the surgical procedure, its advantages and risks All his questions were answered. Consent for surgery obtained. Lab results reviewed. Operative site marked. Proceeding with left L5-S1 discectomy with root foraminotomy SIGNATURE: Maliha Berg MD PATIENT NAME: Jacquie Lantigua DATE: January 12, 2025 TIME: 7:17 AM PAGER: [phone] ANEH PRE-OP Observed: 01/12/2025 6:51 AM Status: COMPLETED Source: [facility] ID: [id number] Author: RUDDY DAVALOS MD Service: Anesthesiology Author Type: Anesthesiologist Type: Anesthesia Preprocedure Evaluation Filed: 01/12/2025 06:52 Note Text: ANESTHESIOLOGY DAY OF SURGERY NOTE : 1965 Procedure Information Date/Time: 01/12/25729 Procedure: LAMINOTOMY W/ DECOMPRESSION OF NERVE ROOT(S) PARTIAL FACETECTOMY FORAMINOTOMY AND/OR EXCISION OF HERNIATED INTERVERTEBRAL DISC 1 INTERSPACE LUMBAR (Left: Spine Lumbar) - Left L5-S1 disc with foraminotomy Location: OR02 / OR Surgeons: Maliha Berg MD Estimated body mass index is 30.27 kg/m? as calculated from the following: Height as of 12/30/24: 172.7 cm (5' 8 ). Weight as of 12/30/24: 90.3 kg (199 lb 1.2 oz). Most recent hematocrit and potassium results: Hematocrit 35.2 12/30/2024 Potassium 4.3 12/30/2024 Relevant Problems CARDIO (+) Primary hypertension ENDO (+) Acquired hypothyroidism (+) Type 1 diabetes mellitus with other specified complication (HCC) PULMONARY (+) Moderate asthma without complication I - PHYSICAL EVALUATION AIRWAY Patient intubated: No. Tracheostomy tube not present Mallampati: II. TM distance: >3 FB. Neck ROM: full ROM without neurological symptoms. Mouth opening: adequate. Short neck: no. Thick neck: no DENTAL Dental findings: teeth intact. Additional exam findings: no II - ANESTHESIA PLAN ASA Score: 3 Anesthetic Plan: general Airway type: ETT NPO Status: adequate Anesthetic plan additional comments: Insulin pump set for low basal infusion on sliding scale. Will start D5 LR IV fluids to avoid low BS.. Beta Vishal Monitoring Plan Monitoring plan: Standard ASA. Post Procedure Analgesic Plan Postoperative analgesic plan: parenteral or oral opioids and multimodal analgesia. Informed Consent Anesthetic risks, benefits, alternatives, personnel and consent discussed: yes. Patient / Responsible Constitution Party agrees to proceed: yes Patient / Surrogate agrees to blood products: yes DNR status not reviewed with patient and/or family prior to surgery. Significant changes in the patient condition since the History and Physical, not otherwise documented in primary service progress note: no. Potential Anesthesia issues that may suggest increased risk of complications or contraindication to planned procedure: none. Vitals Value Taken Time BP 147/82 01/12/25 06 Pulse 68 01/12/25 06 Resp 18 01/12/25624 Temp 36.7 ?C (98.1 ?F) 01/12/25 06 SpO2 96 % 01/12/25 06 Facility-Administered Medications as of 01/12/2025 Medication Dose Route Frequency [COMPLETED] lidocaine (PF) 10 mg/mL (1 %) 1-2 mg injection (XYLOCAINE) 0.1-0.2 mL INTRADERMAL PRN lactated ringers iv infusion 5-30 mL/hr INTRAVENOUS CONTINUOUS NaCl 0.9% iv flush bag 20 mL INTRAVENOUS PRN ceFAZolin iv piggyback 2 g in D5W (iso-osmotic) 100 mL (ANCEF) 2 g INTRAVENOUS Pre-Op Once [COMPLETED] acetaminophen 1,000 mg tab(s) (TYLENOL) 1,000 mg ORAL Pre-Op Once [COMPLETED] promethazine 12.5 mg tab(s) (PHENERGAN) 12.5 mg ORAL Pre-Op Once dextrose 5% in LR infusion (D5-LR) 5-30 mL/hr INTRAVENOUS CONTINUOUS Outpatient Medications as of 01/12/2025 Medication Sig tiZANidine (ZANAFLEX) 4 mg tablet 4 mg. gabapentin (NEURONTIN) 400 mg capsule Take 800 mg by mouth. 3 x times dily famotidine (PEPCID) 20 mg tablet Take 1 tablet by mouth two times a day. ofloxacin (FLOXIN) 400 mg tablet Take 1 pill once monthly rosuvastatin (CRESTOR) 20 mg tablet TAKE ONE AND ONE-HALF TABLETS ONCE DAILY ADVAIR HFA 115-21 mcg/actuation inhaler Inhale 4 Puffs as instructed once daily. Subcutaneous Insulin Pump (ACCU-CHEK SPIRIT INSULIN PUMP) misc Basal rates: 24:00 --1.6units/hr; 0300:-2.3units/hr;06:00-1.8;11:00-1.8;12:00-2.0;16:00-2.2;19:00-2.7;21:00-2.4 ;22:00-1.6. Bolus: 2 unit/6 Gms CHO each meal; correction : 1 unit every 25 mg > 125 mg/dl. Eva hein. hrd: tmp bas at 80% lisinopril (ZESTRIL) 2.5 mg tablet Take 4 tablets by mouth once daily. fluoxetine hcl(PROZAC 20 MG CAP) 3 tabs daily HUMALOG U-100 INSULIN 100 unit/mL injection INJECT 90 UNITS DAILY VIA INSULIN PUMP rifAMPin (RIFADIN) 300 mg capsule Take 2 pills once monthly Minocycline HCl 100 mg tablet Take 1 pill once monthly triamcinolone acetonide (KENALOG) 0.1 % cream Apply 1 application to affected area two times a day. (No more than 21 days per month) fluticasone (FLONASE) 50 mcg/actuation nasal spray Use in the nose. icosapent ethyl (VASCEPA) 1 gram Take 1 g by mouth. 2 caps in the AM and 2 caps in the PM levothyroxine (SYNTHROID) 50 mcg tablet TAKE 2 TABLETS DAILY ibuprofen (MOTRIN) 800 mg tablet Take 800 mg by mouth every 6 hours as needed. cyclobenzaprine (FLEXERIL) 10 mg tablet Take 10 mg by mouth three times daily as needed. PROAIR HFA 90 mcg/actuation inhaler Inhale 2 Puffs as instructed as needed. MUCINEX 600 mg 12 hr tablet Take 2 tablets by mouth once daily as needed. aspirin, enteric coated (ECOTRIN LOW STRENGTH) 81 mg ORAL EC tablet Take 1 tablet by mouth once daily. ONE TOUCH ULTRA TEST STRIPS chekc 6-8 timea a day(insulin pump) ONE TOUCH F[place] PO[place] LANCET uses 6-8 a day CENTRUM ECHINACEA CAPSULE 100MG PO I have interviewed and examined the patient. I have reviewed the medical record and/or the pre-anesthesia evaluation, pertinent labs, and test results. This contains updated information obtained within 48 hours of Surgery/Procedure. SIGNATURE: Ruddy Davalos MD PATIENT NAME: Jacquie Lantigua DATE: January 12, 2025 TIME: 6:51 AM CSN: [id number] STAPHYLOCOCCUS AUREUS AND MR SA SCREEN, PCR, NASAL Collected: 12/30/2024 8:54 AM Status: F Source: [facility] Comment: Specimen Type : SWAB Ordering Facility: [facility] Address: [address] [place] [address] TYPE CODE TESTS RESULT OUT OF RANGE REFERENCE UNITS LAB 18451-8([facility] ) SA+MRSA Pnl Nose KARLA+probe Methicillin-SUSCE PTIBLE Staphylococcus aureus Detected Abnormal Not Detected Performed By: #### SAPCR ### # [facility] CLIA [id number] [address] [place] [address] DEPRECATED HGB A1C BLD Collected: 12/30 8:54 AM Status: F Source: [facility] Comment: Specimen Type : BLOOD SPECIMEN Ordering Facility: [facility] Address: [address] [place] [address] TYPE CODE TESTS RESULT OUT OF RANGE REFERENCE UNITS LAB 4548-4(LOINC) HbA1c MFr Bld 7.2 High 4.3-5.6 % Result Comment: [place] Josefina betes Association guidelines indicate that patients with HgbA1c in the range 5.7-6.4% are at increased risk for development of diabetes, and intervention by lifestyle modification may be beneficial. HgbA1c greater or equal to 6.5% is considered diagnostic of diabetes. LAB 66155-8(LOINC) Est. average glucose Bld gHb Est-mCnc 160 mg/dL Result Comment: eAG: (Estima anibal average glucose) is a calculated value from HgbA1c and is brand representative of the average blood glucose level in the last 2-3 month period. Performed By: #### 65164-1 # ### [facility] CLIA [id number] [address] [place] [address] [place] CBC PNL BLD AUTO Collected: 8:54 AM Status: F Source: [facility] Order Comment: Specimen Type : BLOOD SPECIMEN Ordering Facility: [facility] Address: [address] [place] [address] TYPE CODE TESTS RESULT OUT OF RANGE REFERENCE UNITS LAB 6690-2(LOINC) WBC # Bld Auto 7.07 3.70-11.00 k/uL LAB 789-8(LOINC) RBC # Bld Auto 3.90 Low 4.20-6.00 m/uL LAB 718-7(LOINC) Hgb Bld-mCnc 11.9 Low 13.0-17.0 g/dL LAB 4544-3(LOINC) Hct VFr Bld Auto 35.2 Low 39.0-51.0 % LAB 787-2(LOINC) MCV RBC Auto 90.3 80.0-100.0 fL LAB 785-6(LOINC) MCH RBC Qn Auto 30.5 26.0-34.0 pg LAB 786-4(LOINC) MCHC RBC Auto-mCnc 33.8 30.5-36.0 g/dL LAB 40793-9(LOINC) RDW RBC-Rto 12.6 11.5-15.0 % LAB 777-3(LOINC) Platelet # Bld Auto 247 150-400 k/uL LAB 87327-6(LOINC) PMV Bld Auto 10.2 9.0-12.7 fL LAB 771-6(LOINC) nRBC # Bld Auto <0.01 <0.01 k/uL Performed By: #### 27475-5 # ### [facility] CLIA [id number] [address] [place] [address] [place] COMP METAB 2000 PNL SERPL Collected: 8:54 AM Status: F Source: [facility] Order Comment: Specimen Type : BLOOD SPECIMEN Ordering Facility: [facility] Address: [address] [place] [address] TYPE CODE TESTS RESULT OUT OF RANGE REFERENCE UNITS LAB 2885-2(LOINC) Prot SerPl-mCnc 6.9 6.3-8.0 g/dL LAB 1751-7(LOINC) Albumin SerPl-mCnc 4.5 3.9-4.9 g/dL LAB 83626-0(LOINC) Calcium SerPl-mCnc 9.9 8.5-10.2 mg/dL LAB 1975-2(LOINC) Bilirub SerPl-mCnc 0.3 0.2-1.3 mg/dL LAB 6768-6(LOINC) ALP SerPl-cCnc 50 38-113 U/L LAB 1920-8(LOINC) AST SerPl-cCnc 40 14-40 U/L LAB 1742-6(LOINC) ALT SerPl-cCnc 61 High 10-54 U/L LAB 2345-7(LOINC) Glucose SerPl-mCnc 158 High 74-99 mg/dL Result Comment: The [place] Diabetes Association (ADA) provides guidance for cutoff values for fasting glucose and random glucose. The ADA defines fasting as no caloric intake for at least 8 hours. Fasting plasma glucose results between 100 to 125 mg/dL indicate increased risk for diabetes (prediabetes). Fasting plasma glucose results greater than or equal to 126 mg/dL meet the criteria for diagnosis of diabetes. In the absence of unequivocal hyperglycemia, results should be confirmed by repeat testing. In a patient with classic symptoms of hyperglycemia or hyperglycemic crisis, random plasma glucose results greater than or equal to 200 mg/dL meet the criteria for diagnosis of diabetes. Reference: Standards of Medical Care in Diabetes 2016, [place] Diabetes Association. Diabetes Care. 2016.39(Suppl 1). LAB 3094-0(LOINC) BUN SerPl-mCnc 13 9-24 mg/ dL LAB 2160-0(LOINC) Creat SerPl-mCnc 0.96 0.73-1.22 mg/dL LAB 2951-2(LOINC) Sodium SerPl-sCnc 138 136-144 mmol/L LAB 2823-3(LOINC) Potassium SerPl-sCnc 4.3 3.7-5.1 mmol/L LAB 2075-0(LOINC) Chloride SerPl-sCnc 103 98-107 mmol/L LAB 8-9(LOINC) CO2 SerPl-sCnc 30 22-30 mmo l/L LAB 58674-8(LOINC) Anion Gap SerPl-sCnc 5 Low 8-15 mmol/L LAB 14915-0(LOINC) Creatinine + eGFR Pnl SerPlBld 90 >=60 mL/min/1 .73m??? Result Comment: Estimated Gl omerular Filtration Rate (eGFR) is calculated using the 2020 CKD-EPI creatinine equation. This equation utilizes serum creatinine, sex, and age as parameters. The creatinine assay has traceable calibration to isotope dilution-mass spectrometry. Refer to KDIGO guidelines for clinical interpretation. In patients with unstable renal function, e.g. those with acute kidney injury, the eGFR may not accurately reflect actual GFR. Performed By: #### 41823-1, 58451-6 #### [facility] CLIA [id number] [address] [place] [address] [place] #### 3016-3 #### [facility] CLIA [id number] [address] [place] [address] [place] LIPID 1996 PNL SERPL Collected: 025 8:54 AM Status: F Source: [facility] Order Comment: Specimen Type : BLOOD SPECIMEN Ordering Facility: [facility] Address: [address] [place] [address] TYPE CODE TESTS RESULT OUT OF RANGE REFERENCE UNITS LAB 3-3(LOINC) Cholest SerPl-mCnc 202 High <200 mg/dL Result Comment: <200 mg/dL, Desirable 200-239 mg/dL, Borderline high >239 mg/dL, High LAB 2571-8(LOINC) Trigl SerPl-mCnc 187 High <150 mg/dL Result Comment: <150 mg/dL, Normal 150-199 mg/dL, Borderline high 200-499 mg/dL, High >499 mg/dL, Very high LAB 2085-9(LOINC) HDLc SerPl-mCnc 61 >39 mg/dL Result Comment: 40-59 mg/dL, Acceptable >59 mg/dL, High: Negative risk factor for coronary heart disease <40 mg/dL, Low: Positive risk factor for coronary heart disease LAB 19090-0(LOINC) NonHDLc SerPl-mCnc 141 High <130 mg/dL Result Comment: <130 mg/dL, Optimal 130-159 mg/dL, Near optimal/above optimal 160-189 mg/dL, Borderline high 190-219 mg/dL, High >219 mg/dL, Very high Secondary prevention optimal non HDL Cholesterol levels are recommended to be <100 mg/dL LAB FT FASTING TIME 1 hrs LAB 38078-3(LOINC) VLDLc SerPl Calc-mCnc 37 High <30 mg/dL LAB 9830-1(LOINC) Cholest/HDLc SerPl 3.31 <5.10 LAB 2089-1(LOINC) LDLc SerPl-mCnc 104 High <100 mg/dL Result Comment: <100 mg/dL, Optimal 100-129 mg/dL, Near optimal/above optimal 130-159 mg/dL, Borderline high 160-189 mg/dL, High >189 mg/dL, Very high Secondary prevention optimal LDL Cholesterol levels are recommended to be < 70 mg/dL LAB 86605-6(LOINC) LDLc/HDLc SerPl 1.70 <2.54 Result Comment: Reference: 1. National Cholesterol Education Program ATP III Guideline At-A-Glance Quick Desk Reference: National Heart, Lung, and Blood [place]. National Institutes of Health. 2001: NIH Publication No. 01-3305. 2. An International Atherosclerosis Society position paper: global recommendations for the management of dyslipidemia: executive summary, Atherosclerosis. 2014: 232(2):410-413. Performed By: #### 74821-1, 63497-6 #### [facility] CLIA [id number] [address] [place] [address] [place] #### 3016-3 #### [facility] CLIA [id number] [address] [place], [place] [address] [place] TSH SERPL-ACNC Collected: 5 8:54 AM Status: F Source: [facility] Comment: Specimen Type : BLOOD SPECIMEN Ordering Facility: [facility] Address: [address] [place] [address] TYPE CODE TESTS RESULT OUT OF RANGE REFERENCE UNITS LAB 3016-3([facility]) TSH SerPl-aCnc 2.010 0.270-4.200 mIU/L Performed By: #### 29441-3, 42246-8 #### [facility] CLIA [id number] [address] [place] [address] OF [facility] #### 3016-3 #### [facility] CLIA [id number] [address] [place] [address] ECG COMPLETE Observed: 12/30/2024 8:36 AM Status: F Source: [facility] Ventricular Rate : 62 BPM Atrial Rate : 62 BPM P-R Interval : 132 ms QRS Duration : 104 ms Q-T Interval : 412 ms QTC Calculation(Bazett) : 418 ms Calculated P Imperial : 65 degrees Calculated R Imperial : 39 degrees Calculated T Imperial : 48 degrees NORMAL SINUS RHYTHM NORMAL ECG Confirmed by NEMO THOMPSON M.D. ([id number]) on 01/02/2025 6:21:58 PM NAME : JACQUIE LANTIGUA PID : [id number] : 1965 Gender : Male Race : ORD : [id number] Procedure Date : Dec 30 2024 08:36:05 Edit Date : Jan 02 2025 18:21:58 Diagnosis: NORMAL SINUS RHYTHM NORMAL ECG Confirmed by NEMO THOMPSON M.D. ([id number]) on 01/02/2025 6:21:58 PM Test Reason : PRE OP Location : [address] [place] [address] Overread By : NEMO THOMPSON M.D. Edited By : NEMO THOMPSON M.D. Referred By : MALIHA BERG Acquired by : AW, HISTORY PHYSICAL Observed: 12/30/2024 7:50 AM Status: COMPLETED Source: [facility] HNO ID: [id number] Author: PRABHA GONZALEZ APRN.CNP Service: ? Author Type: Nurse Practitioner Type: H&P Filed: 12/30/2024 17:37 Note Text: [facility] HISTORY AND PHYSICAL EXAMINATION SERVICE DATE: 12/30/2024 SERVICE TIME: 8:07 AM PRIMARY CARE PHYSICIAN: Mikael Araya DO, Assessment Patient has the following medical conditions which may affect emanuel-operative course: MIXED HYPERLIPIDEMIA Assessment: Managed with med , Follows with PCP Type 1 diabetes mellitus with other specified complication (HCC) Assessment: Managed with insulin pump, CGM Follows with Dr. Alicja Villagomez ( Endocrinology , [facility] 12/07/2024) 12/07/2024 HgbA1c 7.1 % ; reports FBG 114 Hx diabetic retinopathy Primary hypertension Assessment: Managed with med, acceptable for surgery Date: BP: 12/30/2024 152/78 12/07/2024 153/64 Acquired hypothyroidism Assessment: Stable with levothyroxine (SYNTHROID) , follows with Dr. Villagomez. Moderate asthma without complication Assessment: Stable with inhalers, follows with PCP . Rare use us Albuterol Inhaler ANESTHESIA FINDINGS: Intubation History: No history of difficult intubation Significant Anesthesia Considerations: none Airway History: No history of difficult airway Bahena Activity Status Index: METS: Walk indoors, such as around the house (1.75 METs) Do light work around the house, such as dusting or washing dishes (2.70 METs) Take care of self; that is eating, dressing, bathing, using the toilet (2.75 METs) Walk a block or two on level ground (2.75 METs) Do moderate work around the house, such as vacuuming, sweeping floors, or carrying in groceries (3.50 METs) Do yardwork, such as raking leaves, weeding, or pushing a power mower (4.50 METs) Climb a flight of stairs or walk up a hill (5.50 METs) Do heavy work around the house, such as scrubbing floors, lifting or moving heavy furniture (8.00 METs) 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 Clinical Frailty Scale: 3. Well, with treated comorbid disease STOP-Bang Score: Has or is being treated for high blood pressure Patient over 50 years old Has a large neck Male patient Denies snoring loudly Denies feeling tired, fatigued, or sleepy during the daytime Has not been observed to stop breathing or choking/gasping during sleep BMI less than or equal to 35 kg/m2 STOP-Bang Score: 4 [id number] Score: Hypertension history: Yes Diabetes history: Yes [id number] Score: I - PHYSICAL EVALUATION AIRWAY Patient intubated: No. Mallampati: III. TM distance: >3 FB. Neck ROM: full ROM without neurological symptoms. Mouth opening: adequate. Short neck: no. Thick neck: yes Kamara present: yes (mustache/short goatee) Lip Bite Test: II Microretrognathia/Micronagthia/Recessed Chin: No DENTAL Dental findings: teeth intact and missing tooth/teeth. Additional comments: crowns. II - ANESTHESIA PLAN Anesthetic plan additional comments: *PACC/TCI - anesthesia choice. Beta Vishal Monitoring Plan Post Procedure Analgesic Plan Prepared for Surgery: optimally prepared for surgery. CONSULTS: Patient does not require consults for optimization at this time Planned Anesthetic: anesthesia choice The Following Tests/Procedures Have Been Initiated: Mupirocin ointment per Surgeon + Orders Placed This Encounter BMP Standing Status: Future Number of Occurrences: 1 Expected Date: 12/30/2024 Expiration Date: 03/31/2025 Complete Blood Count Standing Status: Future Number of Occurrences: 1 Expected Date: 12/30/2024 Expiration Date: 03/31/2025 Staphylococcus aureus AND MRSA Screen, PCR, Nasal Standing Status: Future Number of Occurrences: 1 Expected Date: 12/30/2024 Expiration Date: 03/31/2025 tiZANidine (ZANAFLEX) 4 mg tablet Si mg. ECG (IN OFFICE) ECG COMPLETE Order Comments: Ordered by an unspecified provider REASON FOR VISIT: Jacquie Lantigua is a 59 year old male who is scheduled for Procedure(s) with comments: LAMINOTOMY W/ DECOMPRESSION OF NERVE ROOT(S) PARTIAL FACETECTOMY FORAMINOTOMY AND/OR EXCISION OF HERNIATED INTERVERTEBRAL DISC 1 INTERSPACE LUMBAR (Left) - Left L5-S1 disc with foraminotomy at the request of Dr. Maliha Berg for consultation. My final recommendation will be communicated back to the requesting physician by way of shared medical record or letter. Subjective COVID-19 Immunization Status Completed or No Longer Recommended Covid-19 Vaccine (Series Information) Completed 10/07/2024 Imm Admin: COVID-19 vaccine, age 12+ yr ([employer] COMIRNATY) 08/18/2023 Imm Admin: COVID-19 vaccine, age 12+ yr ([employer] COMIRNATY) 08/10/2022 Imm Admin: COVID-19 vaccine, age 12+ yr, bivalent ([employer]) Only the first 3 history entries have been loaded, but more history exists. CHIEF COMPLAINT: surgery HPI: Patient is a 59 year old male with Intervertebral disc disorder with radiculopathy of lumbar region that is recommended for surgery . Pt. reports intermittent sharp back pain that radiates down his LLE and numbness and tingling in toes affecting activity level and quality of life. He denies foot drop, bowel/bladder issues. Pt. has attempted conservative treatments REVIEW OF SYSTEMS: General: No weight loss, malaise or fevers. 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 No neurological symptoms or problems. Respiratory: Positive for: asthma and tobacco use (former smoker 1ppd x 20 years). Negative for: current cough, bronchodilator used daily for the last 3 months, dyspnea, pneumonia within 6 weeks, URI < 2 weeks and obstructive sleep apnea. Cardiovascular: Positive for: hyperlipidemia and hypertension Negative for: anticoagulation therapy, CAD, chest pain, CHF, DVT/PE and murmur/valvular heart disease. GI: No history of GI symptoms or problems. No history of esophageal varices, recent ascites, or ETOH greater than 2 drinks per day. : No history of dysuria, frequency or incontinence, stones or chronic kidney disease. No difficulty urinating, nocturia > 1 time per night or hematuria. Endocrine: Positive for: diabetes mellitus, diabetic nephropathy, diabetic retinopathy and hypothyroidism. Patient's diabetes mellitus is controlled by insulin. Negative for: diabetic neuropathy. Hematology: No history of bleeding or clotting disorder. Patient is not taking anti-coagulation or platelet medications. No history of hematological symptoms or problems. Oncology: No history of CA metastasis, chemo within 30 days, or radiotherapy within 90 days. No history of oncological symptoms or problems. Psych: Positive for: depression. Negative for: anxiety. Musculoskeletal: See HPI. Skin: Negative for lesions, rash and itching. Implanted Devices: No implanted devices. PAST MEDICAL HISTORY Diagnosis Date Asthma HTN (hypertension) Thyroid disease Type 1 DM (HCC) PAST SURGICAL HISTORY Procedure Laterality Date ADENOIDECTOMY PRIMARY <AGE 11 age 5 Adenoidectomy COLONOSCOPY SCREENING LAPS ABD PRTMANDOMENTUM DX W/WO SPEC BR/WA SPX 05/03/2006 Laparoscopy: mass in the omentum TONSILLECTOMY PRIMARY/SECONDARY <AGE 11 age 5 Tonsillectomy FAMILY HISTORY Problem Relation Age of Onset None Mother MVP Lipids Father dementia. Multiple strokes. Ischemic Heart Disease Other cousing CAD age 44. None Son None Daughter Diabetes Paternal Uncle Social History Tobacco Use Smoking status: Former Types: Cigarettes Smokeless tobacco: Never Tobacco comments: 1 ppd x 20 years former smoker Vaping Use Vaping status: Never Used Substance Use Topics Alcohol use: Yes Alcohol/week: 5.0 standard drinks of alcohol Types: 5 Cans of beer per week Drug use: No Prior to Admission medications as of 12/30/24 0819 Medication Sig Last Dose Taking tiZANidine (ZANAFLEX) 4 mg tablet 4 mg. Yes mupirocin (BACTROBAN) 2 % ointment Apply 1/2 ointment with a cotton swap in each nostril 2x daily for five days preop Yes HUMALOG U-100 INSULIN 100 unit/mL injection INJECT 90 UNITS DAILY VIA INSULIN PUMP Yes gabapentin (NEURONTIN) 400 mg capsule Take 800 mg by mouth. 3 x times dily Yes triamcinolone acetonide (KENALOG) 0.1 % cream Apply 1 application to affected area two times a day. (No more than 21 days per month) Yes fluticasone (FLONASE) 50 mcg/actuation nasal spray Use in the nose. Yes icosapent ethyl (VASCEPA) 1 gram Take 1 g by mouth. 2 caps in the AM and 2 caps in the PM Yes levothyroxine (SYNTHROID) 50 mcg tablet TAKE 2 TABLETS DAILY Yes rosuvastatin (CRESTOR) 20 mg tablet TAKE ONE AND ONE-HALF TABLETS ONCE DAILY Yes ibuprofen (MOTRIN) 800 mg tablet Take 800 mg by mouth every 6 hours as needed. Yes PROAIR HFA 90 mcg/actuation inhaler Inhale 2 Puffs as instructed as needed. Yes ADVAIR HFA 115-21 mcg/actuation inhaler Inhale 4 Puffs as instructed once daily. Yes lisinopril (ZESTRIL) 2.5 mg tablet Take 4 tablets by mouth once daily. Yes aspirin, enteric coated (ECOTRIN LOW STRENGTH) 81 mg ORAL EC tablet Take 1 tablet by mouth once daily. Yes fluoxetine hcl(PROZAC 20 MG CAP) 3 tabs daily Yes CENTRUM ECHINACEA CAPSULE 100MG PO Yes famotidine (PEPCID) 20 mg tablet Take 1 tablet by mouth two times a day. rifAMPin (RIFADIN) 300 mg capsule Take 2 pills once monthly ofloxacin (FLOXIN) 400 mg tablet Take 1 pill once monthly Minocycline HCl 100 mg tablet Take 1 pill once monthly cyclobenzaprine (FLEXERIL) 10 mg tablet Take 10 mg by mouth three times daily as needed. MUCINEX 600 mg 12 hr tablet Take 2 tablets by mouth once daily as needed. Subcutaneous Insulin Pump (ACCU-CHEK SPIRIT INSULIN PUMP) misc Basal rates: 24:00 --1.6units/hr; 0300:-2.3units/hr;06:00-1.8;11:00-1.8;12:00-2.0;16:00-2.2;19:00-2.7;21:00-2.4 ;22:00-1.6. Bolus: 2 unit/6 Gms CHO each meal; correction : 1 unit every 25 mg > 125 mg/dl. Whn wrk. hrd: tmp bas at 80% ONE TOUCH ULTRA TEST STRIPS chekc 6-8 timea a day(insulin pump) ONE TOUCH F[place] LANCET uses 6-8 a day No medication comments found. ALLERGIES Allergen Reactions Humira [Adalimumab] GI Upset Methotrexate Unknown Red Dye Unknown Objective PHYSICAL EXAM: General: alert and oriented (x 3) and healthy appearance. Pertinent negatives noted - not distressed. Skin: normal color, no rash or lesions. HEENT: EOM intact, pupils equal round and pupils reactive to light. Pertinent negatives noted - no carotid bruit. Cardiovascular: regular rate and rhythm, normal S1 and S2, no rub, murmurs, or gallop. Pulse characterized as regular. Respiratory: normal breath sounds, no wheezes or crackles. No chest wall deformity or tenderness. Abdomen: bowel sounds present and soft. Pertinent negatives noted - not tender. Extremities: no deformity, no edema or tenderness, no joint swelling or clubbing. Neurological: normal cognition and motor skills. ALEXANDER 5/5, Antalgic gait; (+) d/p flex/ext- detailed deferred to surgeon . PAIN ASSESSMENT: Pain Pain Level: 7 VITALS: BP 152/78 Pulse 69 Temp (Src) 98 (Temporal) Resp 16 Ht 5' 8 (1.73m) Wt 199 lb 1.2 oz (90.3kg) SpO2 97% BMI 30.28 kg/(m2). Diagnostic tests reviewed for today's visit: Lab Value Units Date High Low HB 11.9 g/dL 12/30/2024 17.0 13.0 HCT 35.2 % 12/30/2024 51.0 39.0 WBC 7.07 k/uL 12/30/2024 11.00 3.70 PLT 247 k/uL 12/30/2024 400 150 NA 138 mmol/L 12/30/2024 144 136 K 4.3 mmol/L 12/30/2024 5.1 3.7 GLUC 158 mg/dL 12/30/2024 99 74 BUN 13 mg/dL 12/30/2024 24 9 CREAT 0.96 mg/dL 12/30/2024 1.22 0.73 PTSEC No results within date range. INR No results within date range. APTT No results within date range. ALT 61 U/L 12/30/2024 54 10 AST 40 U/L 12/30/2024 40 14 TBILI 0.3 mg/dL 12/30/2024 1.3 0.2 TSH No results within date range. Lab Value Units Date High Low HCGQT No results within date range. UHCG No results within date range. HCG, BODY* No results within date range. Lab Value Units Date High Low ABORHD No results within date range. ABSCREEN No results within date range. Hemoglobin A1C (%) Date Value 12/30/2024 7.2 11/16/2022 7.2 03/05/2011 9.4 12/28/2003 9.8 10/01/2001 9.3 06/02/2001 10.9 Hemoglobin A1C (POCT) (%) Date Value 12/07/2024 7.1 07/08/2024 6.9 12/31/2023 7.2 06/17/2023 7.0 12/05/2021 7.1 Recent Results (from the past 8760 hours) ECG COMPLETE Collection Time: 12/30/24 8:36 AM Result Value Ventricular Rate 62 Atrial Rate 62 P-R Interval 132 QRS Duration 104 QT Interval 412 QTC Calculation (Bazett) 418 Calculated P Imperial 65 Calculated R Imperial 39 Calculated T Imperial 48 Impression NORMAL SINUS RHYTHM NORMAL ECG Instructions Given to Patient: Instructions located in the after visit summary. Patient given verbal and written preop instructions and voices comprehension and compliance. SIGNATURE: Prabha Gonzalez APRN.CNP PATIENT NAME: Jacquie Lantigua DATE: 12/30/2024 TIME: 8:07 AM ALBUMIN/CREATININE RATIO, URINE Collect ed: 12/30/2024 7:30 AM Status: F Source: [facility] Order Comment: Specimen Type : URINE SPECIMEN Ordering Facility: [facility] Address: [address] [place] [address] TYPE CODE TESTS RESULT OUT OF RANGE REFERENCE UNITS LAB 2161-8(LOINC) Creat Ur-mCnc 38.0 20.0-300.0 m g/dL LAB 95078-9(LOINC ) Microalbumin Ur-mCnc <7.0 0.0-20.0 mg/L LAB 9318-7(LOINC) Albumin/Creat Ur Result Comment: Not calculat ed Adult Male and Female Nephrotic Criteria: <30 mg/g is considered normal to mildly increased 30-300 mg/g is considered moderately increased >300 mg/g is considered severely increased KDIGO. (2013). KDIGO 2012 Clinical Practice Guideline for the Evaluation and Management of Chronic Kidney Disease. Official Journal of the International Society of Nephrology, 3(1), 1-150. Performed By: #### UACR #### [facility] CLIA [id number] [address] [place] [address] OF [facility] CNOV Observed: 12/23/2024 11:40 AM Status: COMPLETED Source: [facility] Office Visit (SPSNAV) JACQUIE LANTIGUA ([id number]) 1965 M Date Time Provider Department 12/23/24 11:40 AM MALIHA BERG SPSNAV During your visit today, we recorded the following information about you: Maliha Berg MD 12/23/2024 11:59 AM Signed SPINE SURGERY ESTABLISHED This is an in-person visit. DATE OF SERVICE: 12/22/2024 DATE OF LAST VISIT: 08/20/2024 SUBJECTIVE: HPI:Jacquie Lantigua is a 59 year old male presenting with friend. Jacquie Lantigua is a pleasant 58-year-old gentleman is here in spine surgery clinic for follow-up visit after completion of epidural injection. He was evaluated on 08/20/2020 with a history of lower back and left leg pain which is started in February 2024 without any history of injury or fall. Pain is radiating to left lower extremity up to the feet more towards big toe. Pain is constant, aggravated by prolonged sitting and nighttime. Pain is minimally better with activity. He also noticed numbness over left lower extremity more intense over left chavez and feet. Denies right leg pain or numbness. Denies weakness. Denies bowel or bladder dysfunction. He was evaluated at an outside facility for lower back and leg pain with imaging. Imaging showed bone signal changes. Further workup was done to rule out metastatic disease/primary bone lesion. Since last clinic visit he received left L5-S1 transferral epidural injection on 09/28/2024. Epidural injection gave 100% pain relief for 1 day. Today he is complaining of lower back and left leg pain radiating up to feet. Pain is constant, aggravated by activities. Pain is not significantly improved with sitting. He also noticed numbness over left lower extremity more intense over left chavez and feet. Denies weakness. History of omental mass resection 6 to 7 years ago. According to him, it was a benign lesion. No previous history of cancer. Known history of diabetes mellitus. Last A1c was 7.1. Currently taking gabapentin 800 mg 3 times a day, Tylenol, ibuprofen. Also tried Flexeril. Medication helps his pain. Also received left L4-5, L5-S1 transferral epidural injection on 06/29/2024 with 30% pain relief for 40 hours. No previous spine surgery. PAIN EVALUATION No data found in the last 1 encounters. Pain Radiation: to the left ankle Aggravating Factors: Walking Alleviating Factors: Sitting Pain Ratio: Pain in the leg(s) is greater than in the back AMBULATORY STATUS: Independent Community Distances ANTIPLATELET OR ANTICOAGULATION STATUS: No PREVIOUS CONSERVATIVE TREATMENTS: Gabapentin 800 mg 3 times a day Ibuprofen Flexeril Tylenol Received left L4-5, L5-S1 transferral epidural injection on 06/29/2024 with 30% pain relief for 40 hours. Received left L4-5, L5-S1 transferral epidural injection on 09/28/2024 with almost 100% pain relief for 24 hours. REVIEW OF SYSTEMS: GENERAL: No weight loss or malaise MUSCULOSKELETAL: Negative for joint pain, swelling or muscle pain NEURO: No history of headaches, syncope, paralysis, seizures or tremors MEDICATIONS: HUMALOG U-100 INSULIN 100 unit/mL injection INJECT 90 UNITS DAILY VIA INSULIN PUMP gabapentin (NEURONTIN) 400 mg capsule Take 800 mg by mouth. 3 x times dily famotidine (PEPCID) 20 mg tablet Take 1 tablet by mouth two times a day. rifAMPin (RIFADIN) 300 mg capsule Take 2 pills once monthly ofloxacin (FLOXIN) 400 mg tablet Take 1 pill once monthly Minocycline HCl 100 mg tablet Take 1 pill once monthly triamcinolone acetonide (KENALOG) 0.1 % cream Apply 1 application to affected area two times a day. (No more than 21 days per month) fluticasone (FLONASE) 50 mcg/actuation nasal spray Use in the nose. icosapent ethyl (VASCEPA) 1 gram Take 1 g by mouth. 2 caps in the AM and 2 caps in the PM levothyroxine (SYNTHROID) 50 mcg tablet TAKE 2 TABLETS DAILY rosuvastatin (CRESTOR) 20 mg tablet TAKE ONE AND ONE-HALF TABLETS ONCE DAILY ibuprofen (MOTRIN) 800 mg tablet Take 800 mg by mouth every 6 hours as needed. cyclobenzaprine (FLEXERIL) 10 mg tablet Take 10 mg by mouth three times daily as needed. PROAIR HFA 90 mcg/actuation inhaler Inhale 2 Puffs as instructed as needed. ADVAIR HFA 115-21 mcg/actuation inhaler Inhale 4 Puffs as instructed once daily. MUCINEX 600 mg 12 hr tablet Take 2 tablets by mouth once daily as needed. Subcutaneous Insulin Pump (ACCU-CHEK SPIRIT INSULIN PUMP) misc Basal rates: 24:00 --1.6units/hr; 0300:-2.3units/hr;06:00-1.8;11:00-1.8;12:00-2.0;16:00-2.2;19:00-2.7;21:00-2.4 ;22:00-1.6. Bolus: 2 unit/6 Gms CHO each meal; correction : 1 unit every 25 mg > 125 mg/dl. Whn wrk. hrd: tmp bas at 80% lisinopril (ZESTRIL) 2.5 mg tablet Take 4 tablets by mouth once daily. (Patient taking differently: Take 2.5 mg by mouth once daily.) aspirin, enteric coated (ECOTRIN LOW STRENGTH) 81 mg ORAL EC tablet Take 1 tablet by mouth once daily. fluoxetine hcl(PROZAC 20 MG CAP) 3 tabs daily ONE TOUCH ULTRA TEST STRIPS chekc 6-8 timea a day(insulin pump) ONE TOUCH FINE POINT LANCET uses 6-8 a day CENTRUM ECHINACEA CAPSULE 100MG PO Patient Entered Questionnaires PROMIS Score Percentiles Percentiles provide an indication of how the patient's score ranks in relation to the general population. Higher percentile rankings indicate better function/quality of life. 50th percentile is the average of the general population and indicates half of respondents had a worse score. Depression Screening: PHQ-9 Self-Harm (Item 9) response options: 0 Not at all 1 Several days 2 More than half the days 3 Nearly every day PHQ-9 Levels: 0-4 No to mild depression 5-9 Mild depression 10-14 Moderate depression 15-19 Moderately severe depression 20-27 Severe depression OBJECTIVE: PHYSICAL EXAM: There were no vitals taken for this visit. GENERAL APPEARANCE: Well nourished, well developed, and no apparent distress. NEURO PSYCH: Patient oriented to person, place, and time. Mood pleasant. Benign affect. MUSCULOSKELETAL VISUAL INSPECTION CERVICAL: WNL THORACIC: WNL LUMBAR: WNL MOTOR: 5/5 in all muscle groups. SENSORY: Normal sensory exam GAIT: Antalgic. SLR is positive on left side NEURO TESTS: Cranial Nerves: Normal mood and affect. CNII-XII grossly intact. DATA REVIEW:Diagnostic tests reviewed for today's visit, films/specimens were personally reviewed by me: [facility] records independently reviewed Images independently reviewed with the patient EXAM: MR LUMBAR SPINE WO CONTRAST History: Low back pain with radiculopathy. Technique: Multiplanar multisequence MRI of the lumbar spine was obtained without intravenous contrast. Comparison: None available Findings: The conus medullaris ends normally. The alignment of the lumbar spine is anatomic. The vertebral body heights are well maintained. There is a hyperintense T2/hypointense T1 lesion within the vertebral body of T12 that is incompletely visualized. There is a 1.5 cm hyperintense T2/hypointense T1 lesion within the vertebral body of L1. There is a hyperintense T2/hypointense T1 lesion within the vertebral body of L2 measuring approximately 1.4 cm. A hyperintense T2/hypointense T1 lesion within the vertebral body of L4 extends into the right pedicle and right transverse process and measures approximately 3.8 cm. Disc desiccation at L4-L5 and L5-S1. Intervertebral disc heights are maintained. L1-L2: No significant disc bulge or high-grade spinal canal or neuroforaminal stenosis. L2-L3: No significant disc bulge or high-grade spinal canal or neuroforaminal stenosis. L3-L4: No significant disc bulge or high-grade spinal canal or neuroforaminal stenosis. L4-L5: Small disc bulge eccentric to the right. Mild right facet arthropathy. Mild left and moderate right neural foraminal stenosis. Mild spinal canal stenosis. L5-S1: Small disc bulge eccentric to the left. Mild facet arthropathy. Mild right and severe left neuroforaminal stenosis. Visualized paravertebral soft tissues appear within normal limits. ASSESSMENT/PLAN Jacquie Lantigua is a pleasant 58-year-old gentleman is here in spine surgery clinic for follow-up visit after completion of epidural injection. He was evaluated on 08/20/2020 with a history of lower back and left leg pain which is started in February 2024 without any history of injury or fall. Pain is radiating to left lower extremity up to the feet more towards big toe. Pain is constant, aggravated by prolonged sitting and nighttime. Pain is minimally better with activity. He also noticed numbness over left lower extremity more intense over left chavez and feet. Denies right leg pain or numbness. Denies weakness. Denies bowel or bladder dysfunction. He was evaluated at an outside facility for lower back and leg pain with imaging. Imaging showed bone signal changes. Further workup was done to rule out metastatic disease/primary bone lesion. Since last clinic visit he received left L5-S1 transferral epidural injection on 09/28/2024. Epidural injection gave 100% pain relief for 1 day. Today he is complaining of lower back and left leg pain radiating up to feet. Pain is constant, aggravated by activities. Pain is not significantly improved with sitting. He also noticed numbness over left lower extremity more intense over left chavez and feet. Denies weakness. History of omental mass resection 6 to 7 years ago. According to him, it was a benign lesion. No previous history of cancer. Known history of diabetes mellitus. Last A1c was 7.1. Currently taking gabapentin 800 mg 3 times a day, Tylenol, ibuprofen. Also tried Flexeril. Medication helps his pain. Also received left L4-5, L5-S1 transferral epidural injection on 06/29/2024 with 30% pain relief for 40 hours. No previous spine surgery. Neurological examination showed antalgic gait. No motor deficit. Decreased sensation over left L4, L5 dermatomal distribution. SLR is negative. X-ray lumbar spine done on 03/25/2024 showed few millimeter spondylolisthesis at L4-5 level. Degenerative changes at multiple levels. MRI lumbar spine done on 05/07/2024 showed T12, L1, L2, L4 level marrow signal changes which is possibly an atypical hemangioma. The L4 lesion extends to right L4 pedicle and to right transverse process. No extra bony soft tissue masses noticed. Imaging also showed central, diffuse right paracentral disc herniation at L4-5 level. Left L5-S1 foraminal disc herniation with indentation over left L5 root. No significant canal stenosis. Discussed clinical, imaging finding. Showed images and explained detail. Clinically he has lower back and left leg pain with L5 radicular distribution. Currently on gabapentin, pain medications, muscle relaxer which helps his pain. Received left L5-S1 epidural injection with 100% pain relief for 1 day. Discussed treatment option for lower back and left leg pain which includes continuing gabapentin 800 mg 3 times a day, muscle relaxer, pain medications, another leg L5-S1 transferral epidural injection and surgical intervention. Discussed in detail about epidural injection as well as surgical intervention. Considering failed conservative treatment, sedately activities limited due to pain, I think surgery is also a good option. Discussed in detail about left L5-S1 discectomy with root foraminotomy with and without L5-S1 transforaminal lumbar interbody fusion surgical procedure was advantages and risks. Discussed in detail about both surgical procedures. Considering diffuse disc herniation/foraminal disc herniation, fusion may be a better option. Mr. Lantigua is not interested in fusion surgical procedure at this time. He prefers to undergo left L5-S1 discectomy. Discussed in detail about left L5-S1 discectomy with root foraminotomy surgical procedure, its advantages and risks. Risks of surgery includes infection, bleeding, hematoma formation, nonhealing of wound, wound dehiscence, superficial wound infection, CSF leak, nerve damage, recurrent disc herniation, spinal instability, spondylolisthesis, adjacent segment disc disease, requirement of further surgery/fusion in the future, knee/foot weakness, bowel/bladder dysfunction, incontinence, nonimprovement of her pain, nonimprovement of numbness, pneumonia, DVT, heart attack, pulm embolism and . Also discussed about the realistic outcome of surgical intervention. He also has a diffuse disc bulge/foraminal disc herniation on right L4-5 level. If he develops right leg symptoms in the future, he may require intervention for right L4-5 level. Also discussed in detail about recurrent disc herniation and also the need of fusion in the future. 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 We will get a repeat imaging in 6 months to rule out progression of intraosseous hemangiomas. All his questions were answered. Jacquie Lantigua is clinically indicated and wishes to pursue left L5-S1 discectomy with root foraminotomy The risks, benefits, and anticipated outcomes of the procedure/treatment/test, the alternatives to the procedure/treatment/test and their risks and benefits, and the roles and tasks of the personnel to be involved were discussed with the patient or the patient?s personal brand representative. The patient has elected to schedule surgery at this time or intends to call the office with a surgical date. Shared decision making occurred while obtaining informed consent. The majority of the visit was spent counseling and/or coordinating care for the patient. The patient was counseled regarding lower back pain, left leg pain, leg numbness, walking difficulty, lumbar disc herniation, lumbar radiculopathy, lumbar discectomy, lumbar spinal fusion, recurrent disc herniation, chronic pain. Total face to face time was 20 minutes. By signing my name below, Jagjit Rivera MA Student, attest that this documentation has been prepared under the direction and in the presence of Dr. Berg Electronically signed, Jagjit Bush MA Student, Vern December 23, 2024 11:40 AM Provider Attestation: I, Maliha Berg MD personally performed the services described in this documentation. All medical record entries made by the scribe were at my direction and in my presence. I have reviewed the chart and discharge instructions (if applicable) and agree that the record reflects my personal performance and is accurate and complete. Electronically Signed: Maliha Berg MD, December 23, 2024 SIGNATURE: Maliha Berg MD PATIENT NAME: Jacquie Lantigua DATE: December 23, 2024 TIME: 9:34 AM PAGER: Allergies As of Date: 12/23/2024 Noted Allergy Reaction HUMIRA (ADALIMUMAB) 08/20/2017 8 - GI Upset METHOTREXATE 05/21/2019 16 - Unknown RED DYE 07/04/2002 16 - Unknown Date Reviewed: 12/23/2024 Reviewed by: Raquel Serna RN - Fully Assessed Reason for Visit: Established Patient [175] Primary Visit Diagnosis: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] Prescriptions as of 12/23/2024 - HUMALOG U-100 INSULIN 100 unit/mL injection INJECT 90 UNITS DAILY VIA INSULIN PUMP - gabapentin (NEURONTIN) 400 mg capsule Take 800 mg by mouth. 3 x times dily - famotidine (PEPCID) 20 mg tablet Take 1 tablet by mouth two times a day. - rifAMPin (RIFADIN) 300 mg capsule Take 2 pills once monthly - ofloxacin (FLOXIN) 400 mg tablet Take 1 pill once monthly - Minocycline HCl 100 mg tablet Take 1 pill once monthly - triamcinolone acetonide (KENALOG) 0.1 % cream Apply 1 application to affected area two times a day. (No more than 21 days per month) - fluticasone (FLONASE) 50 mcg/actuation nasal spray Use in the nose. - icosapent ethyl (VASCEPA) 1 gram Take 1 g by mouth. 2 caps in the AM and 2 caps in the PM - levothyroxine (SYNTHROID) 50 mcg tablet TAKE 2 TABLETS DAILY - rosuvastatin (CRESTOR) 20 mg tablet TAKE ONE AND ONE-HALF TABLETS ONCE DAILY - ibuprofen (MOTRIN) 800 mg tablet Take 800 mg by mouth every 6 hours as needed. - cyclobenzaprine (FLEXERIL) 10 mg tablet Take 10 mg by mouth three times daily as needed. - PROAIR HFA 90 mcg/actuation inhaler Inhale 2 Puffs as instructed as needed. - ADVAIR HFA 115-21 mcg/actuation inhaler Inhale 4 Puffs as instructed once daily. - MUCINEX 600 mg 12 hr tablet Take 2 tablets by mouth once daily as needed. - Subcutaneous Insulin Pump (ACCU-CHEK SPIRIT INSULIN PUMP) misc Basal rates: 24:00 --1.6units/hr; 0300:-2.3units/hr;06:00-1.8;11:00-1.8;12:00-2.0;16:00-2.2;19:00-2.7;21:00-2.4 ;22:00-1.6. Bolus: 2 unit/6 Gms CHO each meal; correction : 1 unit every 25 mg > 125 mg/dl. Eva hein. hrd: tmp bas at 80% - lisinopril (ZESTRIL) 2.5 mg tablet Take 4 tablets by mouth once daily. - aspirin, enteric coated (ECOTRIN LOW STRENGTH) 81 mg ORAL EC tablet Take 1 tablet by mouth once daily. - fluoxetine hcl(PROZAC 20 MG CAP) 3 tabs daily - ONE TOUCH ULTRA TEST STRIPS chekc 6-8 timea a day(insulin pump) - ONE TOUCH FINE POINT LANCET uses 6-8 a day - CENTRUM ECHINACEA CAPSULE 100MG PO Problem List As Of Date 12/23/2024 Noted Resolved DIABETES UNCOMPL OLGA-UNCONTRLLED [COV9309] 07/20/2002 MIXED HYPERLIPIDEMIA [E78.2] 06/12/2004 HYPOPOTASSEMIA [E87.6] 06/12/2004 ED. [N52.9] 07/22/2005 Peyronie's. [N48.89] 08/08/2005 ABNORMAL THYROID FUNCT STUDY (neg [facility]AB) [R94.6] 02/03/2006 11/27/2018 acquired hypothyroidism [E03.8] 03/05/2011 11/27/2018 Diabetes mellitus type 1, uncontrolled, without*02/13/2016 11/27/2018 Adult onset hypothyroidism [E03.8] 02/13/2016 11/27/2018 Background diabetic retinopathy (HCC) [E11.3299]02/13/2016 Level of Service: OFFICE/OUTPATIENT ESTABLISHED LOW MDM 20 MIN [09617] Additional E/M codes: VISIT [facility] WITH MED * Encounter Status:Closed by MALIHA BERG on 12/23/24 PROGRESS Observed: 12/23/2024 11:40 AM Status: COMPLETED Source: [facility] ID: [id number] Author: MALIHA BERG MD Service: ? Author Type: Physician Type: Progress Notes Filed: 12/23/2024 11:59 Note Text: SPINE SURGERY ESTABLISHED This is an in-person visit. DATE OF SERVICE: 12/22/2024 DATE OF LAST VISIT: 08/20/2024 SUBJECTIVE: HPI:Jacquie Lantigua is a 59 year old male presenting with friend. Jacquie Lantigua is a pleasant 58-year-old gentleman is here in spine surgery clinic for follow-up visit after completion of epidural injection. He was evaluated on 08/20/2020 with a history of lower back and left leg pain which is started in February 2024 without any history of injury or fall. Pain is radiating to left lower extremity up to the feet more towards big toe. Pain is constant, aggravated by prolonged sitting and nighttime. Pain is minimally better with activity. He also noticed numbness over left lower extremity more intense over left chavez and feet. Denies right leg pain or numbness. Denies weakness. Denies bowel or bladder dysfunction. He was evaluated at an outside facility for lower back and leg pain with imaging. Imaging showed bone signal changes. Further workup was done to rule out metastatic disease/primary bone lesion. Since last clinic visit he received left L5-S1 transferral epidural injection on 09/28/2024. Epidural injection gave 100% pain relief for 1 day. Today he is complaining of lower back and left leg pain radiating up to feet. Pain is constant, aggravated by activities. Pain is not significantly improved with sitting. He also noticed numbness over left lower extremity more intense over left chavez and feet. Denies weakness. History of omental mass resection 6 to 7 years ago. According to him, it was a benign lesion. No previous history of cancer. Known history of diabetes mellitus. Last A1c was 7.1. Currently taking gabapentin 800 mg 3 times a day, Tylenol, ibuprofen. Also tried Flexeril. Medication helps his pain. Also received left L4-5, L5-S1 transferral epidural injection on 06/29/2024 with 30% pain relief for 40 hours. No previous spine surgery. PAIN EVALUATION No data found in the last 1 encounters. Pain Radiation: to the left ankle Aggravating Factors: Walking Alleviating Factors: Sitting Pain Ratio: Pain in the leg(s) is greater than in the back AMBULATORY STATUS: Independent Community Distances ANTIPLATELET OR ANTICOAGULATION STATUS: No PREVIOUS CONSERVATIVE TREATMENTS: Gabapentin 800 mg 3 times a day Ibuprofen Flexeril Tylenol Received left L4-5, L5-S1 transferral epidural injection on 06/29/2024 with 30% pain relief for 40 hours. Received left L4-5, L5-S1 transferral epidural injection on 09/28/2024 with almost 100% pain relief for 24 hours. REVIEW OF SYSTEMS: GENERAL: No weight loss or malaise MUSCULOSKELETAL: Negative for joint pain, swelling or muscle pain NEURO: No history of headaches, syncope, paralysis, seizures or tremors MEDICATIONS: HUMALOG U-100 INSULIN 100 unit/mL injection INJECT 90 UNITS DAILY VIA INSULIN PUMP gabapentin (NEURONTIN) 400 mg capsule Take 800 mg by mouth. 3 x times dily famotidine (PEPCID) 20 mg tablet Take 1 tablet by mouth two times a day. rifAMPin (RIFADIN) 300 mg capsule Take 2 pills once monthly ofloxacin (FLOXIN) 400 mg tablet Take 1 pill once monthly Minocycline HCl 100 mg tablet Take 1 pill once monthly triamcinolone acetonide (KENALOG) 0.1 % cream Apply 1 application to affected area two times a day. (No more than 21 days per month) fluticasone (FLONASE) 50 mcg/actuation nasal spray Use in the nose. icosapent ethyl (VASCEPA) 1 gram Take 1 g by mouth. 2 caps in the AM and 2 caps in the PM levothyroxine (SYNTHROID) 50 mcg tablet TAKE 2 TABLETS DAILY rosuvastatin (CRESTOR) 20 mg tablet TAKE ONE AND ONE-HALF TABLETS ONCE DAILY ibuprofen (MOTRIN) 800 mg tablet Take 800 mg by mouth every 6 hours as needed. cyclobenzaprine (FLEXERIL) 10 mg tablet Take 10 mg by mouth three times daily as needed. PROAIR HFA 90 mcg/actuation inhaler Inhale 2 Puffs as instructed as needed. ADVAIR HFA 115-21 mcg/actuation inhaler Inhale 4 Puffs as instructed once daily. MUCINEX 600 mg 12 hr tablet Take 2 tablets by mouth once daily as needed. Subcutaneous Insulin Pump (ACCU-CHEK SPIRIT INSULIN PUMP) misc Basal rates: 24:00 --1.6units/hr; 0300:-2.3units/hr;06:00-1.8;11:00-1.8;12:00-2.0;16:00-2.2;19:00-2.7;21:00-2.4 ;22:00-1.6. Bolus: 2 unit/6 Gms CHO each meal; correction : 1 unit every 25 mg > 125 mg/dl. Eva hein. hrd: tmp bas at 80% lisinopril (ZESTRIL) 2.5 mg tablet Take 4 tablets by mouth once daily. (Patient taking differently: Take 2.5 mg by mouth once daily.) aspirin, enteric coated (ECOTRIN LOW STRENGTH) 81 mg ORAL EC tablet Take 1 tablet by mouth once daily. fluoxetine hcl(PROZAC 20 MG CAP) 3 tabs daily ONE TOUCH ULTRA TEST STRIPS chekc 6-8 timea a day(insulin pump) ONE TOUCH FINE POINT LANCET uses 6-8 a day CENTRUM ECHINACEA CAPSULE 100MG PO Patient Entered Questionnaires PROMIS Score Percentiles Percentiles provide an indication of how the patient's score ranks in relation to the general population. Higher percentile rankings indicate better function/quality of life. 50th percentile is the average of the general population and indicates half of respondents had a worse score. Depression Screening: PHQ-9 Self-Harm (Item 9) response options: 0 Not at all 1 Several days 2 More than half the days 3 Nearly every day PHQ-9 Levels: 0-4 No to mild depression 5-9 Mild depression 10-14 Moderate depression 15-19 Moderately severe depression 20-27 Severe depression OBJECTIVE: PHYSICAL EXAM: There were no vitals taken for this visit. GENERAL APPEARANCE: Well nourished, well developed, and no apparent distress. NEURO PSYCH: Patient oriented to person, place, and time. Mood pleasant. Benign affect. MUSCULOSKELETAL VISUAL INSPECTION CERVICAL: WNL THORACIC: WNL LUMBAR: WNL MOTOR: 5/5 in all muscle groups. SENSORY: Normal sensory exam GAIT: Antalgic. SLR is positive on left side NEURO TESTS: Cranial Nerves: Normal mood and affect. CNII-XII grossly intact. DATA REVIEW:Diagnostic tests reviewed for today's visit, films/specimens were personally reviewed by me: [facility] records independently reviewed Images independently reviewed with the patient EXAM: MR LUMBAR SPINE WO CONTRAST History: Low back pain with radiculopathy. Technique: Multiplanar multisequence MRI of the lumbar spine was obtained without intravenous contrast. Comparison: None available Findings: The conus medullaris ends normally. The alignment of the lumbar spine is anatomic. The vertebral body heights are well maintained. There is a hyperintense T2/hypointense T1 lesion within the vertebral body of T12 that is incompletely visualized. There is a 1.5 cm hyperintense T2/hypointense T1 lesion within the vertebral body of L1. There is a hyperintense T2/hypointense T1 lesion within the vertebral body of L2 measuring approximately 1.4 cm. A hyperintense T2/hypointense T1 lesion within the vertebral body of L4 extends into the right pedicle and right transverse process and measures approximately 3.8 cm. Disc desiccation at L4-L5 and L5-S1. Intervertebral disc heights are maintained. L1-L2: No significant disc bulge or high-grade spinal canal or neuroforaminal stenosis. L2-L3: No significant disc bulge or high-grade spinal canal or neuroforaminal stenosis. L3-L4: No significant disc bulge or high-grade spinal canal or neuroforaminal stenosis. L4-L5: Small disc bulge eccentric to the right. Mild right facet arthropathy. Mild left and moderate right neural foraminal stenosis. Mild spinal canal stenosis. L5-S1: Small disc bulge eccentric to the left. Mild facet arthropathy. Mild right and severe left neuroforaminal stenosis. Visualized paravertebral soft tissues appear within normal limits. ASSESSMENT/PLAN Jacquie Lantigua is a pleasant 58-year-old gentleman is here in spine surgery clinic for follow-up visit after completion of epidural injection. He was evaluated on 08/20/2020 with a history of lower back and left leg pain which is started in February 2024 without any history of injury or fall. Pain is radiating to left lower extremity up to the feet more towards big toe. Pain is constant, aggravated by prolonged sitting and nighttime. Pain is minimally better with activity. He also noticed numbness over left lower extremity more intense over left chavez and feet. Denies right leg pain or numbness. Denies weakness. Denies bowel or bladder dysfunction. He was evaluated at an outside facility for lower back and leg pain with imaging. Imaging showed bone signal changes. Further workup was done to rule out metastatic disease/primary bone lesion. Since last clinic visit he received left L5-S1 transferral epidural injection on 09/28/2024. Epidural injection gave 100% pain relief for 1 day. Today he is complaining of lower back and left leg pain radiating up to feet. Pain is constant, aggravated by activities. Pain is not significantly improved with sitting. He also noticed numbness over left lower extremity more intense over left chavez and feet. Denies weakness. History of omental mass resection 6 to 7 years ago. According to him, it was a benign lesion. No previous history of cancer. Known history of diabetes mellitus. Last A1c was 7.1. Currently taking gabapentin 800 mg 3 times a day, Tylenol, ibuprofen. Also tried Flexeril. Medication helps his pain. Also received left L4-5, L5-S1 transferral epidural injection on 06/29/2024 with 30% pain relief for 40 hours. No previous spine surgery. Neurological examination showed antalgic gait. No motor deficit. Decreased sensation over left L4, L5 dermatomal distribution. SLR is negative. X-ray lumbar spine done on 03/25/2024 showed few millimeter spondylolisthesis at L4-5 level. Degenerative changes at multiple levels. MRI lumbar spine done on 05/07/2024 showed T12, L1, L2, L4 level marrow signal changes which is possibly an atypical hemangioma. The L4 lesion extends to right L4 pedicle and to right transverse process. No extra bony soft tissue masses noticed. Imaging also showed central, diffuse right paracentral disc herniation at L4-5 level. Left L5-S1 foraminal disc herniation with indentation over left L5 root. No significant canal stenosis. Discussed clinical, imaging finding. Showed images and explained detail. Clinically he has lower back and left leg pain with L5 radicular distribution. Currently on gabapentin, pain medications, muscle relaxer which helps his pain. Received left L5-S1 epidural injection with 100% pain relief for 1 day. Discussed treatment option for lower back and left leg pain which includes continuing gabapentin 800 mg 3 times a day, muscle relaxer, pain medications, another leg L5-S1 transferral epidural injection and surgical intervention. Discussed in detail about epidural injection as well as surgical intervention. Considering failed conservative treatment, sedately activities limited due to pain, I think surgery is also a good option. Discussed in detail about left L5-S1 discectomy with root foraminotomy with and without L5-S1 transforaminal lumbar interbody fusion surgical procedure was advantages and risks. Discussed in detail about both surgical procedures. Considering diffuse disc herniation/foraminal disc herniation, fusion may be a better option. Mr. Lantigua is not interested in fusion surgical procedure at this time. He prefers to undergo left L5-S1 discectomy. Discussed in detail about left L5-S1 discectomy with root foraminotomy surgical procedure, its advantages and risks. Risks of surgery includes infection, bleeding, hematoma formation, nonhealing of wound, wound dehiscence, superficial wound infection, CSF leak, nerve damage, recurrent disc herniation, spinal instability, spondylolisthesis, adjacent segment disc disease, requirement of further surgery/fusion in the future, knee/foot weakness, bowel/bladder dysfunction, incontinence, nonimprovement of her pain, nonimprovement of numbness, pneumonia, DVT, heart attack, pulm embolism and . Also discussed about the realistic outcome of surgical intervention. He also has a diffuse disc bulge/foraminal disc herniation on right L4-5 level. If he develops right leg symptoms in the future, he may require intervention for right L4-5 level. Also discussed in detail about recurrent disc herniation and also the need of fusion in the future. 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 We will get a repeat imaging in 6 months to rule out progression of intraosseous hemangiomas. All his questions were answered. Jacquie Lantigua is clinically indicated and wishes to pursue left L5-S1 discectomy with root foraminotomy The risks, benefits, and anticipated outcomes of the procedure/treatment/test, the alternatives to the procedure/treatment/test and their risks and benefits, and the roles and tasks of the personnel to be involved were discussed with the patient or the patient?s personal brand representative. The patient has elected to schedule surgery at this time or intends to call the office with a surgical date. Shared decision making occurred while obtaining informed consent. The majority of the visit was spent counseling and/or coordinating care for the patient. The patient was counseled regarding lower back pain, left leg pain, leg numbness, walking difficulty, lumbar disc herniation, lumbar radiculopathy, lumbar discectomy, lumbar spinal fusion, recurrent disc herniation, chronic pain. Total face to face time was 20 minutes. By signing my name below, Jagjit Rivera MA Student, attest that this documentation has been prepared under the direction and in the presence of Dr. Berg Electronically signed, YAO Foreman, Scribe December 23, 2024 11:40 AM Provider Attestation: Maliha Rivera MD personally performed the services described in this documentation. All medical record entries made by the scribe were at my direction and in my presence. I have reviewed the chart and discharge instructions (if applicable) and agree that the record reflects my personal performance and is accurate and complete. Electronically Signed: Maliha Berg MD, December 23, 2024 SIGNATURE: Maliha Berg MD PATIENT NAME: Jacquie Lantigua DATE: December 23, 2024 TIME: 9:34 AM PAGER: MIRIAN Observed: 12/09/2024 12:00 AM Status: COMPLETED Source: [facility] Telephone (ENDOAL) JACQUIE LANTIGUA ([id number]) 1965 M Date Time Provider Department 12/09/24 [facility] During your visit today, we recorded the following information about you: Dora Arevalo MA 12/09/2024 10:37 AM Signed Lab orders printed, signed, stamped and placed in mail for project facilitator service Allergies As of Date: 12/09/2024 Noted Allergy Reaction HUMIRA (ADALIMUMAB) 08/20/2017 8 - GI Upset METHOTREXATE 05/21/2019 16 - Unknown RED DYE 07/04/2002 16 - Unknown Date Reviewed: 12/07/2024 Reviewed by: Dora Arevalo MA - Fully Assessed Reason for Visit: Lab Orders [[id number]] Cmt: Mailed to patient Prescriptions as of 12/09/2024 - HUMALOG U-100 INSULIN 100 unit/mL injection INJECT 90 UNITS DAILY VIA INSULIN PUMP - gabapentin (NEURONTIN) 400 mg capsule Take 800 mg by mouth. 3 x times dily - famotidine (PEPCID) 20 mg tablet Take 1 tablet by mouth two times a day. - rifAMPin (RIFADIN) 300 mg capsule Take 2 pills once monthly - ofloxacin (FLOXIN) 400 mg tablet Take 1 pill once monthly - Minocycline HCl 100 mg tablet Take 1 pill once monthly - triamcinolone acetonide (KENALOG) 0.1 % cream Apply 1 application to affected area two times a day. (No more than 21 days per month) - fluticasone (FLONASE) 50 mcg/actuation nasal spray Use in the nose. - icosapent ethyl (VASCEPA) 1 gram Take 1 g by mouth. 2 caps in the AM and 2 caps in the PM - levothyroxine (SYNTHROID) 50 mcg tablet TAKE 2 TABLETS DAILY - rosuvastatin (CRESTOR) 20 mg tablet TAKE ONE AND ONE-HALF TABLETS ONCE DAILY - ibuprofen (MOTRIN) 800 mg tablet Take 800 mg by mouth every 6 hours as needed. - cyclobenzaprine (FLEXERIL) 10 mg tablet Take 10 mg by mouth three times daily as needed. - PROAIR HFA 90 mcg/actuation inhaler Inhale 2 Puffs as instructed as needed. - ADVAIR HFA 115-21 mcg/actuation inhaler Inhale 4 Puffs as instructed once daily. - MUCINEX 600 mg 12 hr tablet Take 2 tablets by mouth once daily as needed. - Subcutaneous Insulin Pump (ACCU-CHEK SPIRIT INSULIN PUMP) misc Basal rates: 24:00 --1.6units/hr; 0300:-2.3units/hr;06:00-1.8;11:00-1.8;12:00-2.0;16:00-2.2;19:00-2.7;21:00-2.4 ;22:00-1.6. Bolus: 2 unit/6 Gms CHO each meal; correction : 1 unit every 25 mg > 125 mg/dl. Whn wrk. hrd: tmp bas at 80% - lisinopril (ZESTRIL) 2.5 mg tablet Take 4 tablets by mouth once daily. - aspirin, enteric coated (ECOTRIN LOW STRENGTH) 81 mg ORAL EC tablet Take 1 tablet by mouth once daily. - fluoxetine hcl(PROZAC 20 MG CAP) 3 tabs daily - ONE TOUCH ULTRA TEST STRIPS chekc 6-8 timea a day(insulin pump) - ONE TOUCH F[place] LANCET uses 6-8 a day - CENTRUM ECHINACEA CAPSULE 100MG PO Problem List As Of Date 12/09/2024 Noted Resolved DIABETES UNCOMPL OLGA-UNCONTRLLED [[id number]] 07/20/2002 MIXED HYPERLIPIDEMIA [E78.2] 06/12/2004 HYPOPOTASSEMIA [E87.6] 06/12/2004 ED. [N52.9] 07/22/2005 Peyronie's. [N48.89] 08/08/2005 ABNORMAL THYROID FUNCT STUDY (neg MCAB) [R94.6] 02/03/2006 11/27/2018 acquired hypothyroidism [E03.8] 03/05/2011 11/27/2018 Diabetes mellitus type 1, uncontrolled, without*02/13/2016 11/27/2018 Adult onset hypothyroidism [E03.8] 02/13/2016 11/27/2018 Background diabetic retinopathy (HCC) [E11.3299]02/13/2016 Encounter Status:Closed by DORA AREVALO on 12/09/24 PROCEDURE Observed: 12/07/2024 11:03 AM Status: COMPLETED Source: [facility] HNO ID: [id number] Author: DORA AREVALO MA Service: ? Author Type: Survey Data Technician Type: Procedures Filed: 12/07/2024 14:47 Note Text: PROGRESS Observed: 12/07/2024 11:00 AM Status: COMPLETED Source: [facility] HNO ID: [id number] Author: BERNARDINO VILLAGOMEZ, DO Service: ? Author Type: Physician Type: Progress Notes Filed: 12/07/2024 14:47 Note Text: Reason for Consultation: 1- f/u- DM Type 1 w/ retinopathy 2- hyperlipidemia 3- Hypothyroidism Referring Physician: Dr Araya My final recommendations will be communicated back to the requesting physician by way of shared Medical record or letter via US mail. HISTORY OF PRESENT ILLNESS Mr. Lantigua is a 59 year old male presenting here today for a follow up of type 1 diabetes mellitus, hyperlipidemia and hypothyroidism. Last visit with me was 12/2023- saw Glo Sandra in the interim- 07/2024- recommended upgrading to 780 - will again reach out to [employer]. As I recall, he was diagnosed with type 1 diabetes in 1990. Microvascular complications include retinopathy hx of photocoagulation. He is uptodate with ophthalmology evaluation- states eyes are stable. Now using [employer] 770 G- most recent settings as below. In automode 94 % of the time. POC HbA1c 7.1% . Doing well overall. Exacerbating factors include: labile BG Current diabetes regimen is as follows: BASAL Midnight 1.6 4AM 2.3 6AM 1.80 Noon 2.00 4PM 2.20 7PM 2.70 9PM 2.40 10PM 1.60 BOLUS 1 units per 4.5 grams CHO ISF 1 unit to lower by 25 mg/dL AVG BG 161 +/- 47 mg/dL TDD insulin 74 units/day Basal/bolus 38/62 % AVG CHO: 101 gram/day He is checking his blood glucose 5 times daily + sensor. Pump uploaded and data reviewed This continuous glucose monitoring (sensor) data can be found in the procedure note CGM Report Interpretation: 1. Nocturnal glucose control: Uncontrolled glucose NOT previously detected: No If yes: Not applicable Notes: doing ok overnight- but would likely do better with 780. 2. Post prandial glucose excursions: Uncontrolled glucose NOT previously detected: Yes If yes: Hyperglycemia detected Notes: some post prandial spikes- 3. Hypoglycemia incidence: Uncontrolled glucose NOT previously detected: No Notes: infrequent if at all. 4. Other (e.g., exercise/activity): n/a Hypoglycemia frequency: infrequent, but present at times. Hypoglycemia awareness: Yes Regarding symptoms of hyperglycemia, he is not experiencing any symptoms such as polyuria, polydipsia, nocturia or rapid weight loss or blurry vision, Regarding his thyroid, he was diagnosed with this around 2014. He is taking levothyroxine 50 mcg/day (two tabs) seven days/week. Still with a lot of back pain, sciatica. Takes a lot of ibuprofen. Following with pain management. Otherwise doing ok. Doing well- planning on retiring at age 60 - No past medical history on file. PAST SURGICAL HISTORY Procedure Laterality Date ADENOIDECTOMY PRIMARY <AGE 11 age 5 Adenoidectomy LAPS ABD PRTMANDOMENTUM DX W/WO SPEC BR/WA SPX 05/08 Laparoscopy: mass in the omentum TONSILLECTOMY PRIMARY/SECONDARY <AGE 11 age 5 Tonsillectomy FAMILY HISTORY Problem Relation Age of Onset None Mother MVP Lipids Father dementia. Multiple strokes. Ischemic Heart Disease Other cousing CAD age 44. None Son None Daughter Diabetes Paternal Uncle Social History Tobacco Use Smoking status: Former Types: Cigarettes Smokeless tobacco: Never Vaping Use Vaping status: Never Used Substance Use Topics Alcohol use: Yes Drug use: No Allergies As of Date: 12/07/2024 Allergen Noted Reaction HUMIRA [ADALIMUMAB] 08/20/2017 GI Upset METHOTREXATE 05/21/2019 Unknown RED DYE 07/2002 Unknown Fully Assessed 09/28/2024 Current Outpatient Medications Medication Sig Dispense Refill HUMALOG U-100 INSULIN 100 unit/mL injection INJECT 90 UNITS DAILY VIA INSULIN PUMP 90 mL 3 gabapentin (NEURONTIN) 400 mg capsule Take 800 mg by mouth. 3 x times dily famotidine (PEPCID) 20 mg tablet Take 1 tablet by mouth two times a day. 180 tablet 3 rifAMPin (RIFADIN) 300 mg capsule Take 2 pills once monthly 16 capsule 0 ofloxacin (FLOXIN) 400 mg tablet Take 1 pill once monthly 8 tablet 0 Minocycline HCl 100 mg tablet Take 1 pill once monthly 8 tablet 0 triamcinolone acetonide (KENALOG) 0.1 % cream Apply 1 application to affected area two times a day. (No more than 21 days per month) 453.6 g 3 fluticasone (FLONASE) 50 mcg/actuation nasal spray Use in the nose. icosapent ethyl (VASCEPA) 1 gram Take 1 g by mouth. 2 caps in the AM and 2 caps in the PM levothyroxine (SYNTHROID) 50 mcg tablet TAKE 2 TABLETS DAILY 180 tablet 4 rosuvastatin (CRESTOR) 20 mg tablet TAKE ONE AND ONE-HALF TABLETS ONCE DAILY 135 tablet 2 ibuprofen (MOTRIN) 800 mg tablet Take 800 mg by mouth every 6 hours as needed. cyclobenzaprine (FLEXERIL) 10 mg tablet Take 10 mg by mouth three times daily as needed. PROAIR HFA 90 mcg/actuation inhaler Inhale 2 Puffs as instructed as needed. ADVAIR HFA 115-21 mcg/actuation inhaler Inhale 4 Puffs as instructed once daily. MUCINEX 600 mg 12 hr tablet Take 2 tablets by mouth once daily as needed. 0 Subcutaneous Insulin Pump (ACCU-CHEK SPIRIT INSULIN PUMP) misc Basal rates: 24:00 --1.6units/hr; 0300:-2.3units/hr;06:00-1.8;11:00-1.8;12:00-2.0;16:00-2.2;19:00-2.7;21:00-2.4 ;22:00-1.6. Bolus: 2 unit/6 Gms CHO each meal; correction : 1 unit every 25 mg > 125 mg/dl. Sangeethan wrk. hrd: tmp bas at 80% 1 Each 0 lisinopril (ZESTRIL) 2.5 mg tablet Take 4 tablets by mouth once daily. (Patient taking differently: Take 2.5 mg by mouth once daily.) 90 tablet 3 aspirin, enteric coated (ECOTRIN LOW STRENGTH) 81 mg ORAL EC tablet Take 1 tablet by mouth once daily. 0 fluoxetine hcl(PROZAC 20 MG CAP) 3 tabs daily 0 0 ONE TOUCH ULTRA TEST STRIPS chekc 6-8 timea a day(insulin pump) 700 3 ONE TOUCH F[place] LANCET uses 6-8 a day 700 3 CENTRUM ECHINACEA CAPSULE 100MG PO 0 No current facility-administered medications for this visit. REVIEW OF SYSTEMS General: no fever, no chills - has gained some weight Skin: no rashes, pruritis or dry skin Cardiac: denies chest pain, heart palpitations or orthopnea Pulmonary: denies wheezing, productive cough or exertional dyspnea PHYSICAL EXAMINATION BP 153/64 Pulse 75 Wt 87 kg (191 lb 12.8 oz) BMI 29.16 kg/m? GENERAL: Alert, no distress, cooperative SKIN: Skin color, texture, turgor normal. No rashes or lesions. HEAD/SINUSES: No significant findings EYES: sclera non-icteric, EOMs intact. LUNGS: Lungs clear to auscultation, Good diaphragmatic excursion CARDIAC: Normal S1 and S2; no rubs, murmurs, or gallops ABDOMEN: Normal abdominal exam EXTREMITIES: Normal exam of the extremities NEURO: AAO x 3, no focal deficits. The remainder of the physical exam is noncontributory. DATA See care everywhere. IMPRESSION: Mr. Lantigua is a 59 year old male here for a follow up of type 1 diabetes mellitus, hyperlipidemia and hypothyroidism. RECOMMENDATIONS: 1. Glycemic control: Target HbA1C is less than 7.0% per ADA guidelines. This patient is at/near goal- HbA1c 7.1%- he is doing well. Recommend the followin) would recommend upgrading pump to 780 G- will ask reps to reach out to you 2) continue your current pump settings BASAL Midnight 1.6 4AM 2.3 6AM 1.80 Noon 2.00 4PM 2.20 7PM 2.70 9PM 2.40 10PM 1.60 BOLUS 1 units per 4.5 grams CHO ISF 1 unit to lower by 25 mg/dL 4) continue levothyroxine 50 mcg/day (two tabs) daily 5) see CAR SUPPLIER in [place] 6 months, me in one year. The patient was reminded to check his blood glucose as he is doing, fasting, before meals, and to record the data in a logbook. He was advised to bring their logbook to each office visit. I recommended at least 150 minutes per week of moderate physical activity, such as walking and to reduce carbohydrates and overall caloric intake. 2. Hypertension/BP control: BP goal for patients with diabetes is 130/80. This patient is at target on their current regimen. 3. Lipids: Target LDL cholesterol in patients with diabetes is less than 100, less than 70 if patient has overt CVD. Several studies have shown cardiovascular benefits of statin therapy in all patients with diabetes over age 40 with at least 1 CVD risk factor. This patient is currently at target on statin therapy. 4. Antiplatelet therapy: Low dose antiplatelet therapy is recommended for patients with diabetes at increased cardiovascular risk. This includes most men over age 50 and most women over age 60. 5. Nephropathy screening: Annual measurement of urine albumin excretion is recommended in patients with diabetes. This patient does not have microalbuminuria and is on STALIN-I or ARB therapy. 6. Ophthalmology: Annual dilated eye exams are recommended for patients with type 1 and type 2 diabetes. This patient is up to date with their annual eye exam and has no history of retinopathy. He follows up in February. 7. Hypothyroidsim: TSH/T4 at goal- continue levothyroxine 50 mcg/day (two tabs) daily. The patient was asked to f/u with CHRISTINA Vargas in 6 months, me in 1 year Bernardino Villagomez DO CNOV Observed: 12/07/2024 11:00 AM Status: COMPLETED Source: [facility] Office Visit (ENDOAL) JACQUIE LANTIGUA ([id number]) 1965 M Date Time Provider Department 12/07/24 11:00 AM BERNARDINO VILLAGOMEZ ENDOAL During your visit today, we recorded the following information about you: Pulse Blood pressure Weight 75/minute 153/64 87 kg Bernardino Villagomez DO 12/07/2024 2:47 PM Signed Reason for Consultation: 1- f/u- DM Type 1 w/ retinopathy 2- hyperlipidemia 3- Hypothyroidism Referring Physician: Dr Araya My final recommendations will be communicated back to the requesting physician by way of shared Medical record or letter via US mail. HISTORY OF PRESENT ILLNESS Mr. Lantigua is a 59 year old male presenting here today for a follow up of type 1 diabetes mellitus, hyperlipidemia and hypothyroidism. Last visit with me was 12/2023- saw Glo Sandra in the interim- 07/2024- recommended upgrading to 780 - will again reach out to [employer]. As I recall, he was diagnosed with type 1 diabetes in 1990. Microvascular complications include retinopathy hx of photocoagulation. He is uptodate with ophthalmology evaluation- states eyes are stable. Now using [employer] 770 G- most recent settings as below. In automode 94 % of the time. POC HbA1c 7.1% . Doing well overall. Exacerbating factors include: labile BG Current diabetes regimen is as follows: BASAL Midnight 1.6 4AM 2.3 6AM 1.80 Noon 2.00 4PM 2.20 7PM 2.70 9PM 2.40 10PM 1.60 BOLUS 1 units per 4.5 grams CHO ISF 1 unit to lower by 25 mg/dL AVG BG 161 +/- 47 mg/dL TDD insulin 74 units/day Basal/bolus 38/62 % AVG CHO: 101 gram/day He is checking his blood glucose 5 times daily + sensor. Pump uploaded and data reviewed This continuous glucose monitoring (sensor) data can be found in the procedure note CGM Report Interpretation: 1. Nocturnal glucose control: Uncontrolled glucose NOT previously detected: No If yes: Not applicable Notes: doing ok overnight- but would likely do better with 780. 2. Post prandial glucose excursions: Uncontrolled glucose NOT previously detected: Yes If yes: Hyperglycemia detected Notes: some post prandial spikes- 3. Hypoglycemia incidence: Uncontrolled glucose NOT previously detected: No Notes: infrequent if at all. 4. Other (e.g., exercise/activity): n/a Hypoglycemia frequency: infrequent, but present at times. Hypoglycemia awareness: Yes Regarding symptoms of hyperglycemia, he is not experiencing any symptoms such as polyuria, polydipsia, nocturia or rapid weight loss or blurry vision, Regarding his thyroid, he was diagnosed with this around 2014. He is taking levothyroxine 50 mcg/day (two tabs) seven days/week. Still with a lot of back pain, sciatica. Takes a lot of ibuprofen. Following with pain management. Otherwise doing ok. Doing well- planning on retiring at age 60 - No past medical history on file. PAST SURGICAL HISTORY Procedure Laterality Date ADENOIDECTOMY PRIMARY <AGE 11 age 5 Adenoidectomy LAPS ABD PRTMANDOMENTUM DX W/WO SPEC BR/WA SPX 05/08 Laparoscopy: mass in the omentum TONSILLECTOMY PRIMARY/SECONDARY <AGE 11 age 5 Tonsillectomy FAMILY HISTORY Problem Relation Age of Onset None Mother MVP Lipids Father dementia. Multiple strokes. Ischemic Heart Disease Other cousing CAD age 44. None Son None Daughter Diabetes Paternal Uncle Social History Tobacco Use Smoking status: Former Types: Cigarettes Smokeless tobacco: Never Vaping Use Vaping status: Never Used Substance Use Topics Alcohol use: Yes Drug use: No Allergies As of Date: 12/07/2024 Allergen Noted Reaction HUMIRA [ADALIMUMAB] 08/20/2017 GI Upset METHOTREXATE 05/21/2019 Unknown RED DYE 07/2002 Unknown Fully Assessed 09/28/2024 Current Outpatient Medications Medication Sig Dispense Refill HUMALOG U-100 INSULIN 100 unit/mL injection INJECT 90 UNITS DAILY VIA INSULIN PUMP 90 mL 3 gabapentin (NEURONTIN) 400 mg capsule Take 800 mg by mouth. 3 x times dily famotidine (PEPCID) 20 mg tablet Take 1 tablet by mouth two times a day. 180 tablet 3 rifAMPin (RIFADIN) 300 mg capsule Take 2 pills once monthly 16 capsule 0 ofloxacin (FLOXIN) 400 mg tablet Take 1 pill once monthly 8 tablet 0 Minocycline HCl 100 mg tablet Take 1 pill once monthly 8 tablet 0 triamcinolone acetonide (KENALOG) 0.1 % cream Apply 1 application to affected area two times a day. (No more than 21 days per month) 453.6 g 3 fluticasone (FLONASE) 50 mcg/actuation nasal spray Use in the nose. icosapent ethyl (VASCEPA) 1 gram Take 1 g by mouth. 2 caps in the AM and 2 caps in the PM levothyroxine (SYNTHROID) 50 mcg tablet TAKE 2 TABLETS DAILY 180 tablet 4 rosuvastatin (CRESTOR) 20 mg tablet TAKE ONE AND ONE-HALF TABLETS ONCE DAILY 135 tablet 2 ibuprofen (MOTRIN) 800 mg tablet Take 800 mg by mouth every 6 hours as needed. cyclobenzaprine (FLEXERIL) 10 mg tablet Take 10 mg by mouth three times daily as needed. PROAIR HFA 90 mcg/actuation inhaler Inhale 2 Puffs as instructed as needed. ADVAIR HFA 115-21 mcg/actuation inhaler Inhale 4 Puffs as instructed once daily. MUCINEX 600 mg 12 hr tablet Take 2 tablets by mouth once daily as needed. 0 Subcutaneous Insulin Pump (ACCU-CHEK SPIRIT INSULIN PUMP) misc Basal rates: 24:00 --1.6units/hr; 0300:-2.3units/hr;06:00-1.8;11:00-1.8;12:00-2.0;16:00-2.2;19:00-2.7;21:00-2.4 ;22:00-1.6. Bolus: 2 unit/6 Gms CHO each meal; correction : 1 unit every 25 mg > 125 mg/dl. Whn wrk. hrd: tmp bas at 80% 1 Each 0 lisinopril (ZESTRIL) 2.5 mg tablet Take 4 tablets by mouth once daily. (Patient taking differently: Take 2.5 mg by mouth once daily.) 90 tablet 3 aspirin, enteric coated (ECOTRIN LOW STRENGTH) 81 mg ORAL EC tablet Take 1 tablet by mouth once daily. 0 fluoxetine hcl(PROZAC 20 MG CAP) 3 tabs daily 0 0 ONE TOUCH ULTRA TEST STRIPS chekc 6-8 timea a day(insulin pump) 700 3 ONE TOUCH F[place] LANCET uses 6-8 a day 700 3 CENTRUM ECHINACEA CAPSULE 100MG PO 0 No current facility-administered medications for this visit. REVIEW OF SYSTEMS General: no fever, no chills - has gained some weight Skin: no rashes, pruritis or dry skin Cardiac: denies chest pain, heart palpitations or orthopnea Pulmonary: denies wheezing, productive cough or exertional dyspnea PHYSICAL EXAMINATION BP 153/64 Pulse 75 Wt 87 kg (191 lb 12.8 oz) BMI 29.16 kg/m? GENERAL: Alert, no distress, cooperative SKIN: Skin color, texture, turgor normal. No rashes or lesions. HEAD/SINUSES: No significant findings EYES: sclera non-icteric, EOMs intact. LUNGS: Lungs clear to auscultation, Good diaphragmatic excursion CARDIAC: Normal S1 and S2; no rubs, murmurs, or gallops ABDOMEN: Normal abdominal exam EXTREMITIES: Normal exam of the extremities NEURO: AAO x 3, no focal deficits. The remainder of the physical exam is noncontributory. DATA See care everywhere. IMPRESSION: Mr. Lantigua is a 59 year old male here for a follow up of type 1 diabetes mellitus, hyperlipidemia and hypothyroidism. RECOMMENDATIONS: 1. Glycemic control: Target HbA1C is less than 7.0% per ADA guidelines. This patient is at/near goal- HbA1c 7.1%- he is doing well. Recommend the followin) would recommend upgrading pump to 780 G- will ask reps to reach out to you 2) continue your current pump settings BASAL Midnight 1.6 4AM 2.3 6AM 1.80 Noon 2.00 4PM 2.20 7PM 2.70 9PM 2.40 10PM 1.60 BOLUS 1 units per 4.5 grams CHO ISF 1 unit to lower by 25 mg/dL 4) continue levothyroxine 50 mcg/day (two tabs) daily 5) see CHRISTINA Vargas 6 months, me in one year. The patient was reminded to check his blood glucose as he is doing, fasting, before meals, and to record the data in a logbook. He was advised to bring their logbook to each office visit. I recommended at least 150 minutes per week of moderate physical activity, such as walking and to reduce carbohydrates and overall caloric intake. 2. Hypertension/BP control: BP goal for patients with diabetes is 130/80. This patient is at target on their current regimen. 3. Lipids: Target LDL cholesterol in patients with diabetes is less than 100, less than 70 if patient has overt CVD. Several studies have shown cardiovascular benefits of statin therapy in all patients with diabetes over age 40 with at least 1 CVD risk factor. This patient is currently at target on statin therapy. 4. Antiplatelet therapy: Low dose antiplatelet therapy is recommended for patients with diabetes at increased cardiovascular risk. This includes most men over age 50 and most women over age 60. 5. Nephropathy screening: Annual measurement of urine albumin excretion is recommended in patients with diabetes. This patient does not have microalbuminuria and is on STALIN-I or ARB therapy. 6. Ophthalmology: Annual dilated eye exams are recommended for patients with type 1 and type 2 diabetes. This patient is up to date with their annual eye exam and has no history of retinopathy. He follows up in February. 7. Hypothyroidsim: TSH/T4 at goal- continue levothyroxine 50 mcg/day (two tabs) daily. The patient was asked to f/u with CHRISTINA Vargas in 6 months, me in 1 year DO Ab [place], [place] 12/07/2024 2:47 PM Signed Bernardino Villagomez DO 12/07/2024 11:17 AM Addendum 1) would recommend upgrading pump to 780 G- will ask reps to reach out to you 2) continue your current pump settings BASAL Midnight 1.6 4AM 2.3 6AM 1.80 Noon 2.00 4PM 2.20 7PM 2.70 9PM 2.40 10PM 1.60 BOLUS 1 units per 4.5 grams CHO ISF 1 unit to lower by 25 mg/dL 4) continue levothyroxine 50 mcg/day (two tabs) daily 5) see CAR SUPPLIER in [place] 6 months, me in one year. Allergies As of Date: 12/07/2024 Noted Allergy Reaction HUMIRA (ADALIMUMAB) 08/20/2017 8 - GI Upset METHOTREXATE 05/21/2019 16 - Unknown RED DYE 07/04/2002 16 - Unknown Date Reviewed: 12/07/2024 Reviewed by: Dora Arevalo MA - Fully Assessed Reason for Visit: Follow Up [171] Insulin Dependent Diabetes Mellitus [2790] Primary Visit Diagnosis:Diabetes mellitus type 1, controlled, insulin dependent (HCC) [E10.9] Other Visit Diagnoses:Insulin pump status [Z96.41] Acquired hypothyroidism [E03.9] Order(s):HEMOGLOBIN A1C (POC) [[id number]] Order #: [id number]. #:[id number] Prescriptions as of 12/07/2024 - HUMALOG U-100 INSULIN 100 unit/mL injection INJECT 90 UNITS DAILY VIA INSULIN PUMP - gabapentin (NEURONTIN) 400 mg capsule Take 800 mg by mouth. 3 x times dily - famotidine (PEPCID) 20 mg tablet Take 1 tablet by mouth two times a day. - rifAMPin (RIFADIN) 300 mg capsule Take 2 pills once monthly - ofloxacin (FLOXIN) 400 mg tablet Take 1 pill once monthly - Minocycline HCl 100 mg tablet Take 1 pill once monthly - triamcinolone acetonide (KENALOG) 0.1 % cream Apply 1 application to affected area two times a day. (No more than 21 days per month) - fluticasone (FLONASE) 50 mcg/actuation nasal spray Use in the nose. - icosapent ethyl (VASCEPA) 1 gram Take 1 g by mouth. 2 caps in the AM and 2 caps in the PM - levothyroxine (SYNTHROID) 50 mcg tablet TAKE 2 TABLETS DAILY - rosuvastatin (CRESTOR) 20 mg tablet TAKE ONE AND ONE-HALF TABLETS ONCE DAILY - ibuprofen (MOTRIN) 800 mg tablet Take 800 mg by mouth every 6 hours as needed. - cyclobenzaprine (FLEXERIL) 10 mg tablet Take 10 mg by mouth three times daily as needed. - PROAIR HFA 90 mcg/actuation inhaler Inhale 2 Puffs as instructed as needed. - ADVAIR HFA 115-21 mcg/actuation inhaler Inhale 4 Puffs as instructed once daily. - MUCINEX 600 mg 12 hr tablet Take 2 tablets by mouth once daily as needed. - Subcutaneous Insulin Pump (ACCU-CHEK SPIRIT INSULIN PUMP) misc Basal rates: 24:00 --1.6units/hr; 0300:-2.3units/hr;06:00-1.8;11:00-1.8;12:00-2.0;16:00-2.2;19:00-2.7;21:00-2.4 ;22:00-1.6. Bolus: 2 unit/6 Gms CHO each meal; correction : 1 unit every 25 mg > 125 mg/dl. Eva hein. hrd: tmp bas at 80% - lisinopril (ZESTRIL) 2.5 mg tablet Take 4 tablets by mouth once daily. - aspirin, enteric coated (ECOTRIN LOW STRENGTH) 81 mg ORAL EC tablet Take 1 tablet by mouth once daily. - fluoxetine hcl(PROZAC 20 MG CAP) 3 tabs daily - ONE TOUCH ULTRA TEST STRIPS chekc 6-8 timea a day(insulin pump) - ONE TOUCH F[place] L[place]ET uses 6-8 a day - CENTRUM ECHINACEA CAPSULE 100MG PO Problem List As Of Date 12/07/2024 Noted Resolved DIABETES UNCOMPL OLGA-UNCONTRLLED [[id number]] 07/20/2002 MIXED HYPERLIPIDEMIA [E78.2] 06/12/2004 HYPOPOTASSEMIA [E87.6] 06/12/2004 ED. [N52.9] 07/22/2005 Peyronie's. [N48.89] 08/08/2005 ABNORMAL THYROID FUNCT STUDY (neg MCAB) [R94.6] 02/03/2006 11/27/2018 acquired hypothyroidism [E03.8] 03/05/2011 11/27/2018 Diabetes mellitus type 1, uncontrolled, without*02/13/2016 11/27/2018 Adult onset hypothyroidism [E03.8] 02/13/2016 11/27/2018 Background diabetic retinopathy (HCC) [E11.3299]02/13/2016 Other instructions from your clinician: 1) would recommend upgrading pump to 780 G- will ask reps to reach out to you 2) continue your current pump settings BASAL Midnight 1.6 4AM 2.3 6AM 1.80 Noon 2.00 4PM 2.20 7PM 2.70 9PM 2.40 10PM 1.60 BOLUS 1 units per 4.5 grams CHO ISF 1 unit to lower by 25 mg/dL 4) continue levothyroxine 50 mcg/day (two tabs) daily 5) see CAR SUPPLIER in [place] 6 months, me in one year. Follow-up and Disposition History for Encounter Date Provider Department Center 12/07/2024 [id number], KEVIN L ENDOAL [facility]z [facility]ox Encounter Status:Closed by BERNARDINO VILLAGOMEZ on 12/07/24 CHRISTINAN Observed: 12/07/2024 12:00 AM Status: COMPLETED Source: [facility] Telephone (ENDOAL) JACQUIE LANTIGUA ([id number]) 1965 M Date Time Provider Department 12/07/24 BERNARDINO VILLAGOMEZ ENDOAL During your visit today, we recorded the following information about you: Bernardino Villagomez DO 12/07/2024 2:46 PM Signed Please advise pt that his liver studies are abnormal on the blood work that he had done in November (but improved from previous results)- has his primary care provider discussed these results with him? Dora yRan MA 12/07/2024 2:59 PM Signed Spoke to patient and gave him Dr Villagomez message. Patient voiced understanding. Patient stated that he has not heard from PCP regarding lab results. Allergies As of Date: 12/07/2024 Noted Allergy Reaction HUMIRA (ADALIMUMAB) 08/20/2017 8 - GI Upset METHOTREXATE 05/21/2019 16 - Unknown RED DYE 07/04/2002 16 - Unknown Date Reviewed: 12/07/2024 Reviewed by: Dora Arevalo MA - Fully Assessed Reason for Visit: Results [95] Prescriptions as of 12/07/2024 - HUMALOG U-100 INSULIN 100 unit/mL injection INJECT 90 UNITS DAILY VIA INSULIN PUMP - gabapentin (NEURONTIN) 400 mg capsule Take 800 mg by mouth. 3 x times dily - famotidine (PEPCID) 20 mg tablet Take 1 tablet by mouth two times a day. - rifAMPin (RIFADIN) 300 mg capsule Take 2 pills once monthly - ofloxacin (FLOXIN) 400 mg tablet Take 1 pill once monthly - Minocycline HCl 100 mg tablet Take 1 pill once monthly - triamcinolone acetonide (KENALOG) 0.1 % cream Apply 1 application to affected area two times a day. (No more than 21 days per month) - fluticasone (FLONASE) 50 mcg/actuation nasal spray Use in the nose. - icosapent ethyl (VASCEPA) 1 gram Take 1 g by mouth. 2 caps in the AM and 2 caps in the PM - levothyroxine (SYNTHROID) 50 mcg tablet TAKE 2 TABLETS DAILY - rosuvastatin (CRESTOR) 20 mg tablet TAKE ONE AND ONE-HALF TABLETS ONCE DAILY - ibuprofen (MOTRIN) 800 mg tablet Take 800 mg by mouth every 6 hours as needed. - cyclobenzaprine (FLEXERIL) 10 mg tablet Take 10 mg by mouth three times daily as needed. - PROAIR HFA 90 mcg/actuation inhaler Inhale 2 Puffs as instructed as needed. - ADVAIR HFA 115-21 mcg/actuation inhaler Inhale 4 Puffs as instructed once daily. - MUCINEX 600 mg 12 hr tablet Take 2 tablets by mouth once daily as needed. - Subcutaneous Insulin Pump (ACCU-CHEK SPIRIT INSULIN PUMP) misc Basal rates: 24:00 --1.6units/hr; 0300:-2.3units/hr;06:00-1.8;11:00-1.8;12:00-2.0;16:00-2.2;19:00-2.7;21:00-2.4 ;22:00-1.6. Bolus: 2 unit/6 Gms CHO each meal; correction : 1 unit every 25 mg > 125 mg/dl. Eva hein. hrd: tmp bas at 80% - lisinopril (ZESTRIL) 2.5 mg tablet Take 4 tablets by mouth once daily. - aspirin, enteric coated (ECOTRIN LOW STRENGTH) 81 mg ORAL EC tablet Take 1 tablet by mouth once daily. - fluoxetine hcl(PROZAC 20 MG CAP) 3 tabs daily - ONE TOUCH ULTRA TEST STRIPS chekc 6-8 timea a day(insulin pump) - ONE TOUCH FINE POINT LANCET uses 6-8 a day - CENTRUM ECHINACEA CAPSULE 100MG PO Problem List As Of Date 12/07/2024 Noted Resolved DIABETES UNCOMPL OLGA-UNCONTRLLED [[id number]] 07/20/2002 MIXED HYPERLIPIDEMIA [E78.2] 06/12/2004 HYPOPOTASSEMIA [E87.6] 06/12/2004 ED. [N52.9] 07/22/2005 Peyronie's. [N48.89] 08/08/2005 ABNORMAL THYROID FUNCT STUDY (neg MCAB) [R94.6] 02/03/2006 11/27/2018 acquired hypothyroidism [E03.8] 03/05/2011 11/27/2018 Diabetes mellitus type 1, uncontrolled, without*02/13/2016 11/27/2018 Adult onset hypothyroidism [E03.8] 02/13/2016 11/27/2018 Background diabetic retinopathy (HCC) [E11.3299]02/13/2016 Encounter Status:Closed by DORA AREVALO on 12/07/24 CNPN Observed: 12/07/2024 12:00 AM Status: COMPLETED Source: [facility] Telephone (ENDOAL) JACQUIE LANTIGUA ([id number]) 1965 M Date Time Provider Department 12/07/24 BERNARDINO VILLAGOMEZ During your visit today, we recorded the following information about you: Dora Arevalo MA 12/07/2024 2:54 PM Signed Patient expressed interest in new pump while at office visit but was not sure when his current pump is out of warranty. I spoke to [employer] rep and patient is still under warranty but they can initiate a software upgrade. An order was opened and an upgrade team will reach out. Patient notified. Allergies As of Date: 12/07/2024 Noted Allergy Reaction HUMIRA (ADALIMUMAB) 08/20/2017 8 - GI Upset METHOTREXATE 05/21/2019 16 - Unknown RED DYE 07/04/2002 16 - Unknown Date Reviewed: 12/07/2024 Reviewed by: Dora Arevalo MA - Fully Assessed Reason for Visit: [employer] Upgrade [Other] Cmt: Patient still under warranty with 770G Prescriptions as of 12/07/2024 - HUMALOG U-100 INSULIN 100 unit/mL injection INJECT 90 UNITS DAILY VIA INSULIN PUMP - gabapentin (NEURONTIN) 400 mg capsule Take 800 mg by mouth. 3 x times dily - famotidine (PEPCID) 20 mg tablet Take 1 tablet by mouth two times a day. - rifAMPin (RIFADIN) 300 mg capsule Take 2 pills once monthly - ofloxacin (FLOXIN) 400 mg tablet Take 1 pill once monthly - Minocycline HCl 100 mg tablet Take 1 pill once monthly - triamcinolone acetonide (KENALOG) 0.1 % cream Apply 1 application to affected area two times a day. (No more than 21 days per month) - fluticasone (FLONASE) 50 mcg/actuation nasal spray Use in the nose. - icosapent ethyl (VASCEPA) 1 gram Take 1 g by mouth. 2 caps in the AM and 2 caps in the PM - levothyroxine (SYNTHROID) 50 mcg tablet TAKE 2 TABLETS DAILY - rosuvastatin (CRESTOR) 20 mg tablet TAKE ONE AND ONE-HALF TABLETS ONCE DAILY - ibuprofen (MOTRIN) 800 mg tablet Take 800 mg by mouth every 6 hours as needed. - cyclobenzaprine (FLEXERIL) 10 mg tablet Take 10 mg by mouth three times daily as needed. - PROAIR HFA 90 mcg/actuation inhaler Inhale 2 Puffs as instructed as needed. - ADVAIR HFA 115-21 mcg/actuation inhaler Inhale 4 Puffs as instructed once daily. - MUCINEX 600 mg 12 hr tablet Take 2 tablets by mouth once daily as needed. - Subcutaneous Insulin Pump (ACCU-CHEK SPIRIT INSULIN PUMP) [facility] [place] Basal rates: 24:00 --1.6units/hr; 0300:-2.3units/hr;06:00-1.8;11:00-1.8;12:00-2.0;16:00-2.2;19:00-2.7;21:00-2.4 ;22:00-1.6. Bolus: 2 unit/6 Gms CHO each meal; correction : 1 unit every 25 mg > 125 mg/dl. Eva hein. hrd: tmp bas at 80% - lisinopril (ZESTRIL) 2.5 mg tablet Take 4 tablets by mouth once daily. - aspirin, enteric coated (ECOTRIN LOW STRENGTH) 81 mg ORAL EC tablet Take 1 tablet by mouth once daily. - fluoxetine hcl(PROZAC 20 MG CAP) 3 tabs daily - ONE TOUCH ULTRA TEST STRIPS chekc 6-8 timea a day(insulin pump) - ONE TOUCH FINE POINT LANCET uses 6-8 a day - CENTRUM ECHINACEA CAPSULE 100MG PO Problem List As Of Date 12/07/2024 Noted Resolved DIABETES UNCOMPL OLGA-UNCONTRLLED [[id number]] 07/20/2002 MIXED HYPERLIPIDEMIA [E78.2] 06/12/2004 HYPOPOTASSEMIA [E87.6] 06/12/2004 ED. [N52.9] 07/22/2005 Peyronie's. [N48.89] 08/08/2005 ABNORMAL THYROID FUNCT STUDY (neg MCAB) [R94.6] 02/03/2006 11/27/2018 acquired hypothyroidism [E03.8] 03/05/2011 11/27/2018 Diabetes mellitus type 1, uncontrolled, without*02/13/2016 11/27/2018 Adult onset hypothyroidism [E03.8] 02/13/2016 11/27/2018 Background diabetic retinopathy (HCC) [E11.3299]02/13/2016 Encounter Status:Closed by DORA AREVALO on 12/07/24 MIRIAN Observed: 10/05/2024 12:00 AM Status: COMPLETED Source: [facility] Telephone (SPNMAV) JACQUIE LANTIGUA ([id number]) 1965 M Date Time Provider Department 10/05/24 MIGDALIA UREÑA During your visit today, we recorded the following information about you: Afsaneh Marshall MA 10/05/2024 12:46 PM Signed DATE OF SERVICE: 09/28/2024 PATIENT'S PHONE NUMBERS: [phone] (home) OR @[email or web address]@ PROVIDER: Dr. Ureña PROCEDURE: Elective Pain Management Procedure Spoke directly with patient/caregiver Patient states that they are 20% better for 6 hours. Will continue to monitor symptoms. Patient claims to have no problems. Patient will follow up with Dr. Berg. Allergies As of Date: 10/05/2024 Noted Allergy Reaction HUMIRA (ADALIMUMAB) 08/20/2017 8 - GI Upset METHOTREXATE 05/21/2019 16 - Unknown RED DYE 07/04/2002 16 - Unknown Date Reviewed: 09/28/2024 Reviewed by: Parul Walters RN - Fully Assessed Reason for Visit: Follow Up Phone Call [[phone]] Prescriptions as of 10/05/2024 - HUMALOG U-100 INSULIN 100 unit/mL injection INJECT 90 UNITS DAILY VIA INSULIN PUMP - gabapentin (NEURONTIN) 400 mg capsule Take 800 mg by mouth. 3 x times dily - famotidine (PEPCID) 20 mg tablet Take 1 tablet by mouth two times a day. - rifAMPin (RIFADIN) 300 mg capsule Take 2 pills once monthly - ofloxacin (FLOXIN) 400 mg tablet Take 1 pill once monthly - Minocycline HCl 100 mg tablet Take 1 pill once monthly - triamcinolone acetonide (KENALOG) 0.1 % cream Apply 1 application to affected area two times a day. (No more than 21 days per month) - fluticasone (FLONASE) 50 mcg/actuation nasal spray Use in the nose. - icosapent ethyl (VASCEPA) 1 gram Take 1 g by mouth. 2 caps in the AM and 2 caps in the PM - levothyroxine (SYNTHROID) 50 mcg tablet TAKE 2 TABLETS DAILY - rosuvastatin (CRESTOR) 20 mg tablet TAKE ONE AND ONE-HALF TABLETS ONCE DAILY - ibuprofen (MOTRIN) 800 mg tablet Take 800 mg by mouth every 6 hours as needed. - cyclobenzaprine (FLEXERIL) 10 mg tablet Take 10 mg by mouth three times daily as needed. - PROAIR HFA 90 mcg/actuation inhaler Inhale 2 Puffs as instructed as needed. - ADVAIR HFA 115-21 mcg/actuation inhaler Inhale 4 Puffs as instructed once daily. - MUCINEX 600 mg 12 hr tablet Take 2 tablets by mouth once daily as needed. - Subcutaneous Insulin Pump (ACCU-CHEK SPIRIT INSULIN PUMP) misc Basal rates: 24:00 --1.6units/hr; 0300:-2.3units/hr;06:00-1.8;11:00-1.8;12:00-2.0;16:00-2.2;19:00-2.7;21:00-2.4 ;22:00-1.6. Bolus: 2 unit/6 Gms CHO each meal; correction : 1 unit every 25 mg > 125 mg/dl. Eva fuentesk. hrd: tmp bas at 80% - lisinopril (ZESTRIL) 2.5 mg tablet Take 4 tablets by mouth once daily. - aspirin, enteric coated (ECOTRIN LOW STRENGTH) 81 mg ORAL EC tablet Take 1 tablet by mouth once daily. - fluoxetine hcl(PROZAC 20 MG CAP) 3 tabs daily - ONE TOUCH ULTRA TEST STRIPS chekc 6-8 timea a day(insulin pump) - ONE TOUCH FINE POINT LANCET uses 6-8 a day - CENTRUM ECHINACEA CAPSULE 100MG PO Problem List As Of Date 10/05/2024 Noted Resolved DIABETES UNCOMPL OLGA-UNCONTRLLED [[id number]] 07/20/2002 MIXED HYPERLIPIDEMIA [E78.2] 06/12/2004 HYPOPOTASSEMIA [E87.6] 06/12/2004 ED. [N52.9] 07/22/2005 Peyronie's. [N48.89] 08/08/2005 ABNORMAL THYROID FUNCT STUDY (neg MCAB) [R94.6] 02/03/2006 11/27/2018 acquired hypothyroidism [E03.8] 03/05/2011 11/27/2018 Diabetes mellitus type 1, uncontrolled, without*02/13/2016 11/27/2018 Adult onset hypothyroidism [E03.8] 02/13/2016 11/27/2018 Background diabetic retinopathy (HCC) [E11.3299]02/13/2016 Encounter Status:Closed by AFSANEH MARSHALL on 10/05/24 OPERATIVE NO Observed: 09/28/2024 2:22 PM Status: COMPLETED Source: [facility] HNO ID: [id number] Author: MIGDALIA UREÑA DO Service: Pain Management Author Type: Physician Type: Operative Report Filed: 09/28/2024 14:59 Note Text: Pt was recommended per Dr. Berg to proceed with a diagnostic / theraputic injection for possible surgical planning. Pt will f/u with Dr. Berg post injection for additional guidance and plans. Continues to have lt leg pain. Wants to proceed with an injection today to address the presenting symptoms. Consent obtained. Lt side was marked in the pre-op area. Pt is aware of risks, benefits, alternatives, expected outcome, equipment and personnel. Blood glucose was tested today and it was 223. Pt is aware that today's procedure will affect this and pt will adjust meds, diet and exercise accordingly after rechecking blood glucose. The patient was offered a procedure / surgery at a [facility] facility. It is not possible to know either the risk of delaying the surgery or procedure or chance of getting an infection with perfect accuracy, but a joint decision was made between the patient and the surgeon/proceduralist to proceed at this time with the scheduled surgery/procedure as indicated on the consent form. [facility] approved time out was performed identifying the site, side and level of procedure prior to start of procedure. [facility] - ELECTIVE PROCEDURE Lumbar Transforaminal Epidural Steroid Injection and/or Selective Nerve Root Block under Fluoroscopy Indication: Lumbar Spinal Stenosis with neurogenic claudication and Lt thoracolumbar radiculitis Dr. Rosio Ge The risks and benefits of the procedure were discussed with the patient. The verbal and written informed consent of the patient was obtained. The patient was taken to the fluoroscopy suite. The patient was placed in the prone position on the fluoroscopic table, and the lumbar area was prepped and draped in a sterile fashion. DuraPrep was used per skin prep guidelines. Using fluoroscopic guidance the L5 vertebral body was definitively identified using the most caudal normal disc space labeled as L5-S1. The iliac crest was also visualized as a secondary landmark identifying the L4-5 level. First image is with a needle marker on the lt side. The Lt L5-S1 neural foramen was identified using fluoroscopic guidance after which the overlying skin was anesthetized using sterile technique with 1% preservative free Xylocaine. A sterile 5 inch 22G spinal needle was introduced after which the needle tip was carefully directed toward the inferior (6 o'clock) position of the pedicle which formed the roof of the identified foramen. No blood or CSF was aspirated. Omnipaque 300mgI/mL, approximately 1 cc was injected to rule out intravascular placement of the needle. Medial flow was noted on AP/ oblique view along with contrast under the pedicle on the lateral view. X-rays were obtained for documentation purpose. After this, 10 mg of dexamethasone + 3 cc's of 1% Xylocaine preservative free was injected into the intervertebral foramen The needle was then removed. Vital signs remained normal. There were no complications. Pulse oximeter was used throughout the procedure and the patient's pulse and oxygen saturation remained within normal limits. The patient tolerated the procedure well. The patient was instructed to apply ice over the injection site for twenty minutes every two hours for the next twenty-four to forty-eight hours. The patient was also instructed to contact me if there is any exacerbation of the symptoms. Post procedure instruction sheet was given. The patient was recommended to follow up with me in one to two weeks. Incision/Procedure Start Time: 2:25 PM Incision Close/Procedure End Time: 2:30 PM Date of Service: 09/28/2024 I was present for the entire duration of the procedure and I performed the critical parts of the procedure. Migdalia Ureña DO, MBA [facility] US LOWER EXTREMITY VENOUS DUPLEX LEFT Observed: 09/03/2024 12:56 PM Status: F Source: [facility] US - US VENOUS UNILATERAL LI MITED Reason for exam: Lower extremity edema Technique: Grayscale, color Doppler, and spectral analysis. Left common femoral vein, femoral vein, popliteal vein, and calf veins are patent with adequate flow and compressibility. The greater saphenous vein is patent. IMPRESSION: No evidence for deep vein thrombosis in the left leg Dictated on: 09/03/2024 12:44 PM This report has been electronically signed and approved by the interpreting Radiologist. Electronically Signed Gumaro Rogers D.O. 2024-09-03 12:45:15 CT ABDOMEN W AND WO IV CONTRAST Observed: 08/24/2024 3:37 PM Status: F Source: [facility] CT of the abdomen CTDI is 30.5 mGy and DLP is 1143.15 mGy-cm Technique: Spiral CT of the abdomen and pelvis was performed initially without contrast and and then subsequent images were obtained after 1 minute and 5- minute coronal and sagittal reconstructed images were also obtained. Findings: Comparison: Ultrasound of the abdomen, August 17, 2024 Lung bases: Unremarkable. No mass. No consolidation. ABDOMEN: Liver: In the posterior aspect of the right lobe of the liver a 9.4 mm hypodensity is seen initially on the noncontrasted images. The lesion shows contrast uptake and appears to become isodense with the rest of the liver. This is thought likely a hemangioma. No intrahepatic ductal dilation is seen. Gallbladder and bile ducts: Unremarkable. No calcified stones. No ductal dilation. Pancreas: Unremarkable. No mass. No ductal dilation. Spleen: Unremarkable. No splenomegaly. Adrenals: The right adrenal gland is unremarkable. A there is scarring seen in the right kidney. Also a hypodensity in the medial aspect of the kidney appears to be a cyst.. 1.6 cm nodule is seen in the left adrenal gland.. Kidneys and ureters: No hydronephrosis or obstructing stone. On the lateral aspect of the right kidney in the interpolar region a defect is seen and thought to represent scarring. There is also a defect seen in the inferior pole laterally. This is thought also to be an area of scarring. In the inferomedial aspect of the right kidney there is a hypodensity that measures 8.5 mm. It is not well seen on the noncontrasted images but on the 1 and 5-minute delayed images it measures fluid Hounsfield units. Is thought to be a cyst. Stomach and bowel: Evaluation of the stomach is limited by under distention. No small bowel obstruction. No mucosal thickening. There are clips seen anterior to the transverse colon near the hepatic flexure. There are also clips seen anterior in the abdomen in the midline right below the umbilicus. Intraperitoneal space: Unremarkable. No free air. No significant fluid collection. Bones/joints: In the visualized lower thoracic spine degenerative changes are seen and also a compression deformity is seen at about T9 level. Soft tissues: Unremarkable. Vasculature: Unremarkable. No abdominal aortic aneurysm. Lymph nodes: Nonspecific mesenteric lymph nodes may be reactive. IMPRESSION: Impression: 1. A hypodensity seen in the posterior aspect of the right lobe of the liver appears to be a hemangioma. 2. There is scarring seen in the right kidney as well. Hypodensity is seen in the inferior pole and is thought to be a cyst. 3. A 1.6 cm nodule is seen in the left adrenal gland. It may be an adenoma and is more likely. ELECTRONICALLY SIGNED BY: Carlton Martinez DO CNOV Observed: 08/20/2024 10:00 AM Status: COMPLETED Source: [facility] Office Visit (NSFRVW) JACQUIE LANTIGUA ([id number]) 1965 M Date Time Provider Department 08/20/24 10:00 AM MALIHA BERG NSFRVW During your visit today, we recorded the following information about you: Temperature Weight Height 97 degrees 90.7 kg 1.727 m Maliha Berg MD 08/20/2024 10:19 AM Signed SPINE SURGERY NEW PATIENT This is an in-person visit. PCP: Mikael Araya DO, DO REFERRING PROVIDER: Dr. Tom MD SUBJECTIVE CHIEF COMPLAINT: Lower back and left leg pain Left leg numbness HISTORY OF PRESENT ILLNESS: Jacquie Lantigua is a 58 year old male presenting alone. Jacquie Lantigua is a pleasant 58-year-old gentleman is here in spine surgery clinic with a history of lower back and left leg pain which is started in February 2024 without any history of injury or fall. Pain is radiating to left lower extremity up to the feet more towards big toe. Pain is constant, aggravated by prolonged sitting and nighttime. Pain is minimally better with activity. He also noticed numbness over left lower extremity more intense over left chavez and feet. Denies right leg pain or numbness. Denies weakness. Denies bowel or bladder dysfunction. He was evaluated at an outside facility for lower back and leg pain with imaging. Imaging showed bone signal changes. Further workup was done to rule out metastatic disease/primary bone lesion. He is here for second opinion. History of omental mass resection 6 to 7 years ago. According to him, it was a benign lesion. No previous history of cancer. Known history of diabetes mellitus. Last A1c was 6.9. Currently taking gabapentin 800 mg 3 times a day, Tylenol, ibuprofen. Also tried Flexeril. Medication helps his pain. Received left L4-5, L5-S1 transferral epidural injection on 06/29/2024 with 30% pain relief for 40 hours. No previous spine surgery. PRECIPITATING EVENT: None DURATION OF SYMPTOMS: Greater Than 3 Months PAIN EVALUATION 08/20/2024 0929 Pain Level: 7 Pain Location: Back-Lower into left leg Description: Dull;Pressure Ulcer/Injury Duration Units: Months Frequency: Continuous Pain Radiation: Lower back pain radiate to left lower extremity up to feet Aggravating Factors: Lying supine, Standing, Walking, Walking upstairs, Walking downstairs Alleviating Factors: Medications, Exercising/activity Pain Ratio: Pain in the leg(s) is greater than in the back DERMATOMAL DISTRIBUTION: Left: L5 AMBULATORY STATUS: Independent Community Distances ANTIPLATELET OR ANTICOAGULATION STATUS: No PREVIOUS CONSERVATIVE TREATMENTS: Gabapentin 800 mg 3 times a day Ibuprofen Flexeril Tylenol Left L4-5, L5-S1 transferral epidural injection on 06/29/2024 with 30% pain relief for 40 hours. PREVIOUS SPINAL SURGERY: None ACTIVE PROBLEM LIST Type I (Juvenile Type) Diabetes Mellitus Without Mention of Complication, Uncontrolled Mixed Hyperlipidemia Hypopotassemia ED. Peyronie's. Background Diabetic Retinopathy No past medical history on file. PAST SURGICAL HISTORY Procedure Laterality Date ADENOIDECTOMY PRIMARY <AGE 11 age 5 Adenoidectomy LAPS ABD PRTMANDOMENTUM DX W/WO SPEC BR/WA SPX 05/08 Laparoscopy: mass in the omentum TONSILLECTOMY PRIMARY/SECONDARY <AGE 11 age 5 Tonsillectomy FAMILY HISTORY Problem Relation Age of Onset None Mother MVP Lipids Father dementia. Multiple strokes. Ischemic Heart Disease Other cousing CAD age 44. None Son None Daughter Diabetes Paternal Uncle Social History Tobacco Use Smoking status: Never Smokeless tobacco: Never Substance Use Topics Alcohol use: Yes Drug use: No ALLERGIES Allergen Reactions Humira [Adalimumab] GI Upset Methotrexate Unknown Red Dye Unknown MEDICATIONS: gabapentin (NEURONTIN) 400 mg capsuleTake 400 mg by mouth.Disp: Rfl: famotidine (PEPCID) 20 mg tabletTake 1 tablet by mouth two times a day.Disp: 180 tabletRfl: 3 rifAMPin (RIFADIN) 300 mg capsuleTake 2 pills once monthlyDisp: 16 capsuleRfl: 0 ofloxacin (FLOXIN) 400 mg tabletTake 1 pill once monthlyDisp: 8 tabletRfl: 0 Minocycline HCl 100 mg tabletTake 1 pill once monthlyDisp: 8 tabletRfl: 0 triamcinolone acetonide (KENALOG) 0.1 % creamApply 1 application to affected area two times a day. (No more than 21 days per month)Disp: 453.6 gRfl: 3 HUMALOG U-100 INSULIN 100 unit/mL injectionINJECT 90 UNITS DAILY VIA INSULIN PUMPDisp: 100 mLRfl: 3 fluticasone (FLONASE) 50 mcg/actuation nasal sprayUse in the nose.Disp: Rfl: icosapent ethyl (VASCEPA) 1 gramTake 1 g by mouth. 2 caps in the AM and 2 caps in the PMDisp: Rfl: levothyroxine (SYNTHROID) 50 mcg tabletTAKE 2 TABLETS DAILYDisp: 180 tabletRfl: 4 rosuvastatin (CRESTOR) 20 mg tabletTAKE ONE AND ONE-HALF TABLETS ONCE DAILYDisp: 135 tabletRfl: 2 ibuprofen (MOTRIN) 800 mg tabletTake 800 mg by mouth every 6 hours as needed.Disp: Rfl: cyclobenzaprine (FLEXERIL) 10 mg tabletTake 10 mg by mouth three times daily as needed.Disp: Rfl: PROAIR HFA 90 mcg/actuation inhalerInhale 2 Puffs as instructed as needed.Disp: Rfl: ADVAIR HFA 115-21 mcg/actuation inhalerInhale 4 Puffs as instructed once daily.Disp: Rfl: MUCINEX 600 mg 12 hr tabletTake 2 tablets by mouth once daily as needed.Disp: Rfl: 0 Subcutaneous Insulin Pump (ACCU-CHEK SPIRIT INSULIN PUMP) miscBasal rates: 24:00 --1.6units/hr; 0300:-2.3units/hr;06:00-1.8;11:00-1.8;12:00-2.0;16:00-2.2;19:00-2.7;21:00-2.4 ;22:00-1.6. Bolus: 2 unit/6 Gms CHO each meal; correction : 1 unit every 25 mg > 125 mg/dl. Eva hein. hrd: tmp bas at 80%Disp: 1 EachRfl: 0 lisinopril (ZESTRIL) 2.5 mg tabletTake 4 tablets by mouth once daily.Disp: 90 tabletRfl: 3 (Patient taking differently: Take 2.5 mg by mouth once daily.) aspirin, enteric coated (ECOTRIN LOW STRENGTH) 81 mg ORAL EC tabletTake 1 tablet by mouth once daily.Disp: Rfl: 0 fluoxetine hcl(PROZAC 20 MG CAP)3 tabs dailyDisp: 0Rfl: 0 ONE TOUCH ULTRA TEST STRIPSchekc 6-8 timea a day(insulin pump)Disp: 700Rfl: 3 ONE TOUCH FINE POINT LANCETuses 6-8 a dayDisp: 700Rfl: 3 CENTRUM ECHINACEA CAPSULE 100MG PODisp: Rfl: 0 REVIEW OF SYSTEMS: PAIN ASSESSMENT: See HPI. GENERAL: Denies fever, chills malaise and weight loss. HEENT: No recent change in vision or hearing. CARDIOVASCULAR: Denies chest pain, history of A-fib, valvular disease, or pacemaker/ICD. RESPIRATORY: Denies SOB, sputum production, and hemoptysis. GI: Denies GI ulcers, inflammatory disease, or liver disease. : Denies change in frequency or urgency, kidney disease, and burning with urination. MUSCULOSKELETAL: Negative for joint pain or swelling, back pain or muscle pain. SKIN: Denies rash or itching. PSYCHOLOGICAL: Denies uncontrolled depression or anxiety. NEURO: Denies CVA, seizures, headaches. ENDOCRINE: Denies diabetes, thyroid disease. HEMATOLOGY/LYMPHOLOGY: Denies cancer, bleeding or clotting disorders, anemia,and DVT's. ALLERGIC/IMMUNOLOGICAL: Denies risks for infection, or recent MRSA infections. Patient Entered Questionnaires PROMIS Score Percentiles Percentiles provide an indication of how the patient's score ranks in relation to the general population. Higher percentile rankings indicate better function/quality of life. 50th percentile is the average of the general population and indicates half of respondents had a worse score. Depression Screening: PHQ-9 Self-Harm (Item 9) response options: 0 Not at all 1 Several days 2 More than half the days 3 Nearly every day PHQ-9 Levels: 0-4 No to mild depression 5-9 Mild depression 10-14 Moderate depression 15-19 Moderately severe depression 20-27 Severe depression OBJECTIVE: PHYSICAL EXAM There were no vitals taken for this visit. GENERAL APPEARANCE: Well nourished, well developed, and no apparent distress. NEURO PSYCH: Patient oriented to person, place, and time. Mood pleasant. Benign affect. CARDIOVASCULAR: Palpable pulses. No edema noted. No varicosities. SKIN: Head, neck, trunk, and extremities dry, intact and without lesions. LYMPHATICS: No palpable nodes in cervical or axillae areas. Groin exam deferred. MUSCULOSKELETAL VISUAL INSPECTION CERVICAL: WNL THORACIC: WNL LUMBAR: WNL PALPATION: SPINOUS PROCESS: No pain. PARASPINALS: No pain. MUSCLE BULK: Normal and symmetrical in the upper AND lower extremities. MUSCLE TONE: Normal. MOTOR: 5/5 in all muscle groups. SENSORY: Normal sensory exam except decreased sensation over left L4, L5 dermatomal distribution for light touch GAIT: Antalgic. REFLEXES: +2 to bilateral U/L extremities. PROPRIOCEPTION: Normal. LONG TRACT SIGNS: No clonus. No Hoffmans. STRAIGHT LEG TEST: Ipsilateral: Negative L'HERMITTES SIGN: Negative. SPURLING'S TEST: Not tested. NEURO TESTS: Cranial Nerves: Normal mood and affect. CNII-XII grossly intact. DATA REVIEW [facility] records independently reviewed Images independently reviewed with the patient EXAM: MR LUMBAR SPINE WO CONTRAST 05/07/2024 History: Low back pain with radiculopathy. Technique: Multiplanar multisequence MRI of the lumbar spine was obtained without intravenous contrast. Comparison: None available Findings: The conus medullaris ends normally. The alignment of the lumbar spine is anatomic. The vertebral body heights are well maintained. There is a hyperintense T2/hypointense T1 lesion within the vertebral body of T12 that is incompletely visualized. There is a 1.5 cm hyperintense T2/hypointense T1 lesion within the vertebral body of L1. There is a hyperintense T2/hypointense T1 lesion within the vertebral body of L2 measuring approximately 1.4 cm. A hyperintense T2/hypointense T1 lesion within the vertebral body of L4 extends into the right pedicle and right transverse process and measures approximately 3.8 cm. Disc desiccation at L4-L5 and L5-S1. Intervertebral disc heights are maintained. L1-L2: No significant disc bulge or high-grade spinal canal or neuroforaminal stenosis. L2-L3: No significant disc bulge or high-grade spinal canal or neuroforaminal stenosis. L3-L4: No significant disc bulge or high-grade spinal canal or neuroforaminal stenosis. L4-L5: Small disc bulge eccentric to the right. Mild right facet arthropathy. Mild left and moderate right neural foraminal stenosis. Mild spinal canal stenosis. L5-S1: Small disc bulge eccentric to the left. Mild facet arthropathy. Mild right and severe left neuroforaminal stenosis. Visualized paravertebral soft tissues appear within normal limits. Impression: Lesions of T12, L1, L2, and L4 as detailed are nonspecific and may represent atypical intraosseous hemangiomas but are concerning for malignancy given their signal characteristics. MRI of the lumbar spine with contrast is recommended to further evaluate. Degenerative changes of the lumbar spine as detailed. EXAM: MR LUMBAR SPINE W CONTRAST 06/02/2024 History: Bone lesion seen on prior MRI Technique: Multiplanar multisequence MRI of the lumbar spine was obtained without and with intravenous contrast. Comparison: MRI of the lumbar spine May 07, 2024 Findings: The bone lesion of the thoracic and lumbar spine seen on prior examination demonstrate avid postcontrast enhancement and most concerning for malignancy. Enhancing lesions are also identified within the visualized left iliac bone. No enhancing lesion or pathologic enhancement of the visualized final cord or cauda equina. Visualized paravertebral soft tissues appear within normal limits. Impression: Enhancing lesions of the thoracolumbar spine and left iliac bone are most concerning for malignancy. Nuclear medicine bone scan of whole body TECHNIQUE: 22.1mCi of technetium 99m labeled MDP was administered. Planar imaging obtained in multiple planes. COMPARISON: MRI lumbar spine 06/02/2024. Concern for enhancing thoracolumbar spine the left iliac bone lesions concerning for malignancy HISTORY: Bony lesions identified with MRI of the lumbar spine 06/02/2024 Findings: Homogeneous uptake of the skeletal system identified. No abnormal increased or decreased uptake seen to correspond with the MRI findings. Degenerative uptake of the medial portion of left knee. Degenerative uptake of the left thumb. Impression: No abnormal osteoblastic activity to correspond with bony lesions. Osteolytic metastasis not excluded. May consider additional imaging to assess for primary malignancy. ASSESSMENT/PLAN (M54.16) Radiculopathy of lumbar region (M48.061) Spinal stenosis of lumbar region, unspecified whether neurogenic claudication present Jacquie Lantigua is a pleasant 58-year-old gentleman is here in spine surgery clinic with a history of lower back and left leg pain which is started in February 2024 without any history of injury or fall. Pain is radiating to left lower extremity up to the feet more towards big toe. Pain is constant, aggravated by prolonged sitting and nighttime. Pain is minimally better with activity. He also noticed numbness over left lower extremity more intense over left chavez and feet. Denies right leg pain or numbness. Denies weakness. Denies bowel or bladder dysfunction. He was evaluated at an outside facility for lower back and leg pain with imaging. Imaging showed bone signal changes. Further workup was done to rule out metastatic disease/primary bone lesion. He is here for second opinion. History of omental mass resection 6 to 7 years ago. According to him, it was a benign lesion. No previous history of cancer. Known history of diabetes mellitus. Last A1c was 6.9. Currently taking gabapentin 800 mg 3 times a day, Tylenol, ibuprofen. Also tried Flexeril. Medication helps his pain. Received left L4-5, L5-S1 transferral epidural injection on 06/29/2024 with 30% pain relief for 40 hours. No previous spine surgery. Neurological examination showed antalgic gait. No motor deficit. Decreased sensation over left L4, L5 dermatomal distribution. SLR is negative. X-ray lumbar spine done on 03/25/2024 showed few millimeter spondylolisthesis at L4-5 level. Degenerative changes at multiple levels. MRI lumbar spine done on 05/07/2024 showed T12, L1, L2, L4 level marrow signal changes which is possibly an atypical hemangioma. The L4 lesion extends to right L4 pedicle and to right transverse process. No extra bony soft tissue masses noticed. Imaging also showed central, diffuse right paracentral disc herniation at L4-5 level. Left L5-S1 foraminal disc herniation with indentation over left L5 root. No significant canal stenosis. Discussed clinical, imaging finding. Showed images and explained detail. Clinically he has lower back and right leg pain with L5 radicular distribution. Currently on gabapentin, pain medications, muscle relaxer which helps his pain. Received epidural injection with minimal pain relief. Discussed treatment option for lower back and right leg pain which includes continuing gabapentin 800 mg 3 times a day, muscle relaxer, pain medications, right L5-S1 transferral epidural injection and surgical intervention. Discussed in detail about epidural injection as well as surgical intervention. Also discussed about multilevel vertebral body lesion. Discussed in detail about possibilities and differential diagnosis which includes atypical hemangioma. Will also discuss in tumor board for further recommendation. Primary team ordered a CT however it is not it completed. We will also review CT once it is completed. At this time I recommended right L5-S1 transferral epidural injection. Recommended to continue medications. If his symptoms are not improved with conservative treatment he may benefit from surgical intervention. He may require L5 laminectomy with L5-S1 transforaminal lumbar interbody fusion. He also has right side diffuse disc bulge at L4-5 level without any symptoms for at this time. If in the future he develops symptoms for L4-5 disc herniation, he may require further surgery in the future. All his questions were answered Epidural injection consult placed with Dr. Tom MD. Follow-up in spine surgery clinic 4 to 6 weeks after completion of injection The majority of the visit was spent counseling and/or coordinating care for the patient. The patient was counseled regarding lower back pain, left leg pain, left leg numbness, walking difficulty, lumbar disc herniation, foraminal disc, radiculopathy, gabapentin, epidural injection, lumbar decompression with fusion, vertebral body lesions, atypical hemangioma. Total face to face time was 45 minutes. SIGNATURE: Maliha Berg MD PATIENT NAME: Jacquie Lantigua DATE: August 20, 2024 TIME: 9:24 AM PAGER: Referring Provider: MIGDALIA UREÑA [[id number]] Allergies As of Date: 08/20/2024 Noted Allergy Reaction HUMIRA (ADALIMUMAB) 08/20/2017 8 - GI Upset METHOTREXATE 05/21/2019 16 - Unknown RED DYE 07/04/2002 16 - Unknown Date Reviewed: 08/20/2024 Reviewed by: Avril Glover MA - Fully Assessed Reason for Visit: New Patient [172] Visit Diagnoses:Radiculopathy of lumbar region [M54.16] Spinal stenosis of lumbar region, unspecified whether neurogenic claudication present [M48.061] Order(s):CONSULT TO SPINE SURGERY [[id number]] Order #: [id number]: 1 SPINE INTERVENTION PROCEDURE [[id number]] Order #: [id number] Prescriptions as of 08/20/2024 - gabapentin (NEURONTIN) 400 mg capsule Take 800 mg by mouth. 3 x times dily - famotidine (PEPCID) 20 mg tablet Take 1 tablet by mouth two times a day. - rifAMPin (RIFADIN) 300 mg capsule Take 2 pills once monthly - ofloxacin (FLOXIN) 400 mg tablet Take 1 pill once monthly - Minocycline HCl 100 mg tablet Take 1 pill once monthly - triamcinolone acetonide (KENALOG) 0.1 % cream Apply 1 application to affected area two times a day. (No more than 21 days per month) - HUMALOG U-100 INSULIN 100 unit/mL injection INJECT 90 UNITS DAILY VIA INSULIN PUMP - fluticasone (FLONASE) 50 mcg/actuation nasal spray Use in the nose. - icosapent ethyl (VASCEPA) 1 gram Take 1 g by mouth. 2 caps in the AM and 2 caps in the PM - levothyroxine (SYNTHROID) 50 mcg tablet TAKE 2 TABLETS DAILY - rosuvastatin (CRESTOR) 20 mg tablet TAKE ONE AND ONE-HALF TABLETS ONCE DAILY - ibuprofen (MOTRIN) 800 mg tablet Take 800 mg by mouth every 6 hours as needed. - cyclobenzaprine (FLEXERIL) 10 mg tablet Take 10 mg by mouth three times daily as needed. - PROAIR HFA 90 mcg/actuation inhaler Inhale 2 Puffs as instructed as needed. - ADVAIR HFA 115-21 mcg/actuation inhaler Inhale 4 Puffs as instructed once daily. - MUCINEX 600 mg 12 hr tablet Take 2 tablets by mouth once daily as needed. - Subcutaneous Insulin Pump (ACCU-CHEK SPIRIT INSULIN PUMP) misc Basal rates: 24:00 --1.6units/hr; 0300:-2.3units/hr;06:00-1.8;11:00-1.8;12:00-2.0;16:00-2.2;19:00-2.7;21:00-2.4 ;22:00-1.6. Bolus: 2 unit/6 Gms CHO each meal; correction : 1 unit every 25 mg > 125 mg/dl. Eva fuentesk. hrd: tmp bas at 80% - lisinopril (ZESTRIL) 2.5 mg tablet Take 4 tablets by mouth once daily. - aspirin, enteric coated (ECOTRIN LOW STRENGTH) 81 mg ORAL EC tablet Take 1 tablet by mouth once daily. - fluoxetine hcl(PROZAC 20 MG CAP) 3 tabs daily - ONE TOUCH ULTRA TEST STRIPS chekc 6-8 timea a day(insulin pump) - ONE TOUCH FINE POINT LANCET uses 6-8 a day - CENTRUM ECHINACEA CAPSULE 100MG PO Facility-Administered Medications as of 08/20/2024 - triamcinolone acetonide 40 mg injection (KeNALog 10) Problem List As Of Date 08/20/2024 Noted Resolved DIABETES UNCOMPL OLGA-UNCONTRLLED [[id number]] 07/20/2002 MIXED HYPERLIPIDEMIA [E78.2] 06/12/2004 HYPOPOTASSEMIA [E87.6] 06/12/2004 ED. [N52.9] 07/22/2005 Peyronie's. [N48.89] 08/08/2005 ABNORMAL THYROID FUNCT STUDY (neg MCAB) [R94.6] 02/03/2006 11/27/2018 acquired hypothyroidism [E03.8] 03/05/2011 11/27/2018 Diabetes mellitus type 1, uncontrolled, without*02/13/2016 11/27/2018 Adult onset hypothyroidism [E03.8] 02/13/2016 11/27/2018 Background diabetic retinopathy (HCC) [E11.3299]02/13/2016 Encounter Status:Closed by MALIHA BERG on 08/20/24 PROGRESS Observed: 08/20/2024 9:24 AM Status: COMPLETED Source: [facility] HNO ID: [id number] Author: MALIHA BERG MD Service: ? Author Type: Physician Type: Progress Notes Filed: 08/20/2024 10:19 Note Text: SPINE SURGERY NEW PATIENT This is an in-person visit. PCP: Mikael Araya DO, REFERRING PROVIDER: Dr. Tom MD SUBJECTIVE CHIEF COMPLAINT: Lower back and left leg pain Left leg numbness HISTORY OF PRESENT ILLNESS: Jacquie Lantigua is a 58 year old male presenting alone. Jacquie Lantigua is a pleasant 58-year-old gentleman is here in spine surgery clinic with a history of lower back and left leg pain which is started in February 2024 without any history of injury or fall. Pain is radiating to left lower extremity up to the feet more towards big toe. Pain is constant, aggravated by prolonged sitting and nighttime. Pain is minimally better with activity. He also noticed numbness over left lower extremity more intense over left chavez and feet. Denies right leg pain or numbness. Denies weakness. Denies bowel or bladder dysfunction. He was evaluated at an outside facility for lower back and leg pain with imaging. Imaging showed bone signal changes. Further workup was done to rule out metastatic disease/primary bone lesion. He is here for second opinion. History of omental mass resection 6 to 7 years ago. According to him, it was a benign lesion. No previous history of cancer. Known history of diabetes mellitus. Last A1c was 6.9. Currently taking gabapentin 800 mg 3 times a day, Tylenol, ibuprofen. Also tried Flexeril. Medication helps his pain. Received left L4-5, L5-S1 transferral epidural injection on 06/29/2024 with 30% pain relief for 40 hours. No previous spine surgery. PRECIPITATING EVENT: None DURATION OF SYMPTOMS: Greater Than 3 Months PAIN EVALUATION 08/20/2024 0929 Pain Level: 7 Pain Location: Back-Lower into left leg Description: Dull;Pressure Ulcer/Injury Duration Units: Months Frequency: Continuous Pain Radiation: Lower back pain radiate to left lower extremity up to feet Aggravating Factors: Lying supine, Standing, Walking, Walking upstairs, Walking downstairs Alleviating Factors: Medications, Exercising/activity Pain Ratio: Pain in the leg(s) is greater than in the back DERMATOMAL DISTRIBUTION: Left: L5 AMBULATORY STATUS: Independent Community Distances ANTIPLATELET OR ANTICOAGULATION STATUS: No PREVIOUS CONSERVATIVE TREATMENTS: Gabapentin 800 mg 3 times a day Ibuprofen Flexeril Tylenol Left L4-5, L5-S1 transferral epidural injection on 06/29/2024 with 30% pain relief for 40 hours. PREVIOUS SPINAL SURGERY: None ACTIVE PROBLEM LIST Type I (Juvenile Type) Diabetes Mellitus Without Mention of Complication, Uncontrolled Mixed Hyperlipidemia Hypopotassemia ED. Peyronie's. Background Diabetic Retinopathy No past medical history on file. PAST SURGICAL HISTORY Procedure Laterality Date ADENOIDECTOMY PRIMARY <AGE 11 age 5 Adenoidectomy LAPS ABD PRTMANDOMENTUM DX W/WO SPEC BR/WA SPX 05/08 Laparoscopy: mass in the omentum TONSILLECTOMY PRIMARY/SECONDARY <AGE 11 age 5 Tonsillectomy FAMILY HISTORY Problem Relation Age of Onset None Mother MVP Lipids Father dementia. Multiple strokes. Ischemic Heart Disease Other cousing CAD age 44. None Son None Daughter Diabetes Paternal Uncle Social History Tobacco Use Smoking status: Never Smokeless tobacco: Never Substance Use Topics Alcohol use: Yes Drug use: No ALLERGIES Allergen Reactions Humira [Adalimumab] GI Upset Methotrexate Unknown Red Dye Unknown MEDICATIONS: gabapentin (NEURONTIN) 400 mg capsuleTake 400 mg by mouth.Disp: Rfl: famotidine (PEPCID) 20 mg tabletTake 1 tablet by mouth two times a day.Disp: 180 tabletRfl: 3 rifAMPin (RIFADIN) 300 mg capsuleTake 2 pills once monthlyDisp: 16 capsuleRfl: 0 ofloxacin (FLOXIN) 400 mg tabletTake 1 pill once monthlyDisp: 8 tabletRfl: 0 Minocycline HCl 100 mg tabletTake 1 pill once monthlyDisp: 8 tabletRfl: 0 triamcinolone acetonide (KENALOG) 0.1 % creamApply 1 application to affected area two times a day. (No more than 21 days per month)Disp: 453.6 gRfl: 3 HUMALOG U-100 INSULIN 100 unit/mL injectionINJECT 90 UNITS DAILY VIA INSULIN PUMPDisp: 100 mLRfl: 3 fluticasone (FLONASE) 50 mcg/actuation nasal sprayUse in the nose.Disp: Rfl: icosapent ethyl (VASCEPA) 1 gramTake 1 g by mouth. 2 caps in the AM and 2 caps in the PMDisp: Rfl: levothyroxine (SYNTHROID) 50 mcg tabletTAKE 2 TABLETS DAILYDisp: 180 tabletRfl: 4 rosuvastatin (CRESTOR) 20 mg tabletTAKE ONE AND ONE-HALF TABLETS ONCE DAILYDisp: 135 tabletRfl: 2 ibuprofen (MOTRIN) 800 mg tabletTake 800 mg by mouth every 6 hours as needed.Disp: Rfl: cyclobenzaprine (FLEXERIL) 10 mg tabletTake 10 mg by mouth three times daily as needed.Disp: Rfl: PROAIR HFA 90 mcg/actuation inhalerInhale 2 Puffs as instructed as needed.Disp: Rfl: ADVAIR HFA 115-21 mcg/actuation inhalerInhale 4 Puffs as instructed once daily.Disp: Rfl: MUCINEX 600 mg 12 hr tabletTake 2 tablets by mouth once daily as needed.Disp: Rfl: 0 Subcutaneous Insulin Pump (ACCU-CHEK SPIRIT INSULIN PUMP) miscBasal rates: 24:00 --1.6units/hr; 0300:-2.3units/hr;06:00-1.8;11:00-1.8;12:00-2.0;16:00-2.2;19:00-2.7;21:00-2.4 ;22:00-1.6. Bolus: 2 unit/6 Gms CHO each meal; correction : 1 unit every 25 mg > 125 mg/dl. Eva hein. hrd: tmp bas at 80%Disp: 1 EachRfl: 0 lisinopril (ZESTRIL) 2.5 mg tabletTake 4 tablets by mouth once daily.Disp: 90 tabletRfl: 3 (Patient taking differently: Take 2.5 mg by mouth once daily.) aspirin, enteric coated (ECOTRIN LOW STRENGTH) 81 mg ORAL EC tabletTake 1 tablet by mouth once daily.Disp: Rfl: 0 fluoxetine hcl(PROZAC 20 MG CAP)3 tabs dailyDisp: 0Rfl: 0 ONE TOUCH ULTRA TEST STRIPSchekc 6-8 timea a day(insulin pump)Disp: 700Rfl: 3 ONE TOUCH FINE POINT LANCETuses 6-8 a dayDisp: 700Rfl: 3 CENTRUM ECHINACEA CAPSULE 100MG PODisp: Rfl: 0 REVIEW OF SYSTEMS: PAIN ASSESSMENT: See HPI. GENERAL: Denies fever, chills malaise and weight loss. HEENT: No recent change in vision or hearing. CARDIOVASCULAR: Denies chest pain, history of A-fib, valvular disease, or pacemaker/ICD. RESPIRATORY: Denies SOB, sputum production, and hemoptysis. GI: Denies GI ulcers, inflammatory disease, or liver disease. : Denies change in frequency or urgency, kidney disease, and burning with urination. MUSCULOSKELETAL: Negative for joint pain or swelling, back pain or muscle pain. SKIN: Denies rash or itching. PSYCHOLOGICAL: Denies uncontrolled depression or anxiety. NEURO: Denies CVA, seizures, headaches. ENDOCRINE: Denies diabetes, thyroid disease. HEMATOLOGY/LYMPHOLOGY: Denies cancer, bleeding or clotting disorders, anemia,and DVT's. ALLERGIC/IMMUNOLOGICAL: Denies risks for infection, or recent MRSA infections. Patient Entered Questionnaires PROMIS Score Percentiles Percentiles provide an indication of how the patient's score ranks in relation to the general population. Higher percentile rankings indicate better function/quality of life. 50th percentile is the average of the general population and indicates half of respondents had a worse score. Depression Screening: PHQ-9 Self-Harm (Item 9) response options: 0 Not at all 1 Several days 2 More than half the days 3 Nearly every day PHQ-9 Levels: 0-4 No to mild depression 5-9 Mild depression 10-14 Moderate depression 15-19 Moderately severe depression 20-27 Severe depression OBJECTIVE: PHYSICAL EXAM There were no vitals taken for this visit. GENERAL APPEARANCE: Well nourished, well developed, and no apparent distress. NEURO PSYCH: Patient oriented to person, place, and time. Mood pleasant. Benign affect. CARDIOVASCULAR: Palpable pulses. No edema noted. No varicosities. SKIN: Head, neck, trunk, and extremities dry, intact and without lesions. LYMPHATICS: No palpable nodes in cervical or axillae areas. Groin exam deferred. MUSCULOSKELETAL VISUAL INSPECTION CERVICAL: WNL THORACIC: WNL LUMBAR: WNL PALPATION: SPINOUS PROCESS: No pain. PARASPINALS: No pain. MUSCLE BULK: Normal and symmetrical in the upper AND lower extremities. MUSCLE TONE: Normal. MOTOR: 5/5 in all muscle groups. SENSORY: Normal sensory exam except decreased sensation over left L4, L5 dermatomal distribution for light touch GAIT: Antalgic. REFLEXES: +2 to bilateral U/L extremities. PROPRIOCEPTION: Normal. LONG TRACT SIGNS: No clonus. No Hoffmans. STRAIGHT LEG TEST: Ipsilateral: Negative L'HERMITTES SIGN: Negative. SPURLING'S TEST: Not tested. NEURO TESTS: Cranial Nerves: Normal mood and affect. CNII-XII grossly intact. DATA REVIEW [facility] records independently reviewed Images independently reviewed with the patient EXAM: MR LUMBAR SPINE WO CONTRAST 05/07/2024 History: Low back pain with radiculopathy. Technique: Multiplanar multisequence MRI of the lumbar spine was obtained without intravenous contrast. Comparison: None available Findings: The conus medullaris ends normally. The alignment of the lumbar spine is anatomic. The vertebral body heights are well maintained. There is a hyperintense T2/hypointense T1 lesion within the vertebral body of T12 that is incompletely visualized. There is a 1.5 cm hyperintense T2/hypointense T1 lesion within the vertebral body of L1. There is a hyperintense T2/hypointense T1 lesion within the vertebral body of L2 measuring approximately 1.4 cm. A hyperintense T2/hypointense T1 lesion within the vertebral body of L4 extends into the right pedicle and right transverse process and measures approximately 3.8 cm. Disc desiccation at L4-L5 and L5-S1. Intervertebral disc heights are maintained. L1-L2: No significant disc bulge or high-grade spinal canal or neuroforaminal stenosis. L2-L3: No significant disc bulge or high-grade spinal canal or neuroforaminal stenosis. L3-L4: No significant disc bulge or high-grade spinal canal or neuroforaminal stenosis. L4-L5: Small disc bulge eccentric to the right. Mild right facet arthropathy. Mild left and moderate right neural foraminal stenosis. Mild spinal canal stenosis. L5-S1: Small disc bulge eccentric to the left. Mild facet arthropathy. Mild right and severe left neuroforaminal stenosis. Visualized paravertebral soft tissues appear within normal limits. Impression: Lesions of T12, L1, L2, and L4 as detailed are nonspecific and may represent atypical intraosseous hemangiomas but are concerning for malignancy given their signal characteristics. MRI of the lumbar spine with contrast is recommended to further evaluate. Degenerative changes of the lumbar spine as detailed. EXAM: MR LUMBAR SPINE W CONTRAST 06/02/2024 History: Bone lesion seen on prior MRI Technique: Multiplanar multisequence MRI of the lumbar spine was obtained without and with intravenous contrast. Comparison: MRI of the lumbar spine May 07, 2024 Findings: The bone lesion of the thoracic and lumbar spine seen on prior examination demonstrate avid postcontrast enhancement and most concerning for malignancy. Enhancing lesions are also identified within the visualized left iliac bone. No enhancing lesion or pathologic enhancement of the visualized final cord or cauda equina. Visualized paravertebral soft tissues appear within normal limits. Impression: Enhancing lesions of the thoracolumbar spine and left iliac bone are most concerning for malignancy. Nuclear medicine bone scan of whole body TECHNIQUE: 22.1mCi of technetium 99m labeled MDP was administered. Planar imaging obtained in multiple planes. COMPARISON: MRI lumbar spine 06/02/2024. Concern for enhancing thoracolumbar spine the left iliac bone lesions concerning for malignancy HISTORY: Bony lesions identified with MRI of the lumbar spine 06/02/2024 Findings: Homogeneous uptake of the skeletal system identified. No abnormal increased or decreased uptake seen to correspond with the MRI findings. Degenerative uptake of the medial portion of left knee. Degenerative uptake of the left thumb. Impression: No abnormal osteoblastic activity to correspond with bony lesions. Osteolytic metastasis not excluded. May consider additional imaging to assess for primary malignancy. ASSESSMENT/PLAN (M54.16) Radiculopathy of lumbar region (M48.061) Spinal stenosis of lumbar region, unspecified whether neurogenic claudication present Jacquie Lantigua is a pleasant 58-year-old gentleman is here in spine surgery clinic with a history of lower back and left leg pain which is started in February 2024 without any history of injury or fall. Pain is radiating to left lower extremity up to the feet more towards big toe. Pain is constant, aggravated by prolonged sitting and nighttime. Pain is minimally better with activity. He also noticed numbness over left lower extremity more intense over left chavez and feet. Denies right leg pain or numbness. Denies weakness. Denies bowel or bladder dysfunction. He was evaluated at an outside facility for lower back and leg pain with imaging. Imaging showed bone signal changes. Further workup was done to rule out metastatic disease/primary bone lesion. He is here for second opinion. History of omental mass resection 6 to 7 years ago. According to him, it was a benign lesion. No previous history of cancer. Known history of diabetes mellitus. Last A1c was 6.9. Currently taking gabapentin 800 mg 3 times a day, Tylenol, ibuprofen. Also tried Flexeril. Medication helps his pain. Received left L4-5, L5-S1 transferral epidural injection on 06/29/2024 with 30% pain relief for 40 hours. No previous spine surgery. Neurological examination showed antalgic gait. No motor deficit. Decreased sensation over left L4, L5 dermatomal distribution. SLR is negative. X-ray lumbar spine done on 03/25/2024 showed few millimeter spondylolisthesis at L4-5 level. Degenerative changes at multiple levels. MRI lumbar spine done on 05/07/2024 showed T12, L1, L2, L4 level marrow signal changes which is possibly an atypical hemangioma. The L4 lesion extends to right L4 pedicle and to right transverse process. No extra bony soft tissue masses noticed. Imaging also showed central, diffuse right paracentral disc herniation at L4-5 level. Left L5-S1 foraminal disc herniation with indentation over left L5 root. No significant canal stenosis. Discussed clinical, imaging finding. Showed images and explained detail. Clinically he has lower back and right leg pain with L5 radicular distribution. Currently on gabapentin, pain medications, muscle relaxer which helps his pain. Received epidural injection with minimal pain relief. Discussed treatment option for lower back and right leg pain which includes continuing gabapentin 800 mg 3 times a day, muscle relaxer, pain medications, right L5-S1 transferral epidural injection and surgical intervention. Discussed in detail about epidural injection as well as surgical intervention. Also discussed about multilevel vertebral body lesion. Discussed in detail about possibilities and differential diagnosis which includes atypical hemangioma. Will also discuss in tumor board for further recommendation. Primary team ordered a CT however it is not it completed. We will also review CT once it is completed. At this time I recommended right L5-S1 transferral epidural injection. Recommended to continue medications. If his symptoms are not improved with conservative treatment he may benefit from surgical intervention. He may require L5 laminectomy with L5-S1 transforaminal lumbar interbody fusion. He also has right side diffuse disc bulge at L4-5 level without any symptoms for at this time. If in the future he develops symptoms for L4-5 disc herniation, he may require further surgery in the future. All his questions were answered Epidural injection consult placed with Dr. Tom MD. Follow-up in spine surgery clinic 4 to 6 weeks after completion of injection The majority of the visit was spent counseling and/or coordinating care for the patient. The patient was counseled regarding lower back pain, left leg pain, left leg numbness, walking difficulty, lumbar disc herniation, foraminal disc, radiculopathy, gabapentin, epidural injection, lumbar decompression with fusion, vertebral body lesions, atypical hemangioma. Total face to face time was 45 minutes. SIGNATURE: Maliha Berg MD PATIENT NAME: Jacquie CONCEPCION: August 20, 2024 TIME: 9:24 AM PAGER: US LIVER Observed: 08/12/2024 1:42 PM Status: F Source: [facility] EXAM: Abdominal Ultrasound, Limited. REASON FOR EXAM: Elevated LFTs. TECHNIQUE: High-resolution ultrasound is performed in the upper abdomen with color Doppler and spectral analysis. COMPARISON: None FINDINGS: Liver: Liver is mildly enlarged and echogenic diffusely. There is a hypoechoic or possibly anechoic lesion measuring 1.4 x 1.1 cm in the periphery of the right hepatic lobe. No internal Doppler flow is present. There is acoustic enhancement. Gallbladder: Clear. No stones identified. No pericholecystic fluid is seen. Wilmar sign is not indicated by the performing Technologist. Bile ducts: Normal in diameter. No dilatation appreciated. Pancreas: Partially obscured by bowel gas. Visualized portions unremarkable. Right kidney: No hydronephrosis or renal mass is identified. There is significant cortical cleft/scar in the upper pole. Peritoneum: Clear. Portal Vein: There is appropriate directional flow within the portal vein. Measurements: CBD: 0.34 cm GB wall: 0.20 cm Right kidney: 12.6 cm Liver: 19.2 cm IMPRESSION: 1. Hepatomegaly with steatosis. 2. Small hypodensity in the liver. This is nonspecific and may simply represent a small cyst or hemangioma. However, if there is concern for malignancy, CT of the abdomen before and after contrast would be recommended to better characterize. Otherwise, repeat ultrasound in six months would be appropriate. 3. Right renal cortical scarring. *This report is generated using voice recognition reporting (CinnaBid). On occasion [employer] erroneously drops words from the report or replaces the spoken word with similar sounding words. Please call with any questions/concerns regarding this report.* Dictated and transcribed 08/17/2024/ This report has been electronically signed and approved by the interpreting radiologist. Electronically Signed Govind Birmingham M.D. 2024-08-17 09:18:43 MIRIAN Observed: 07/16/2024 12:00 AM Status: COMPLETED Source: [facility] Telephone (ENDOAL) LANTIGUAJACQUIE ([id number]) 1965 M Date Time Provider Department 07/16/24 BERNARDINO VILLAGOMEZ During your visit today, we recorded the following information about you: Dora Arevalo MA 08/09/2024 3:46 PM Addendum [employer] form received and placed on providers desk. [id number] Self Admin inj and K0603 REplacement battery 1.5V Faxed with confirmation Allergies As of Date: 07/16/2024 Noted Allergy Reaction HUMIRA (ADALIMUMAB) 08/20/2017 8 - GI Upset METHOTREXATE 05/21/2019 16 - Unknown RED DYE 07/04/2002 16 - Unknown Date Reviewed: 07/08/2024 Reviewed by: Glo Sandra APRN.CAR SUPPLIER - Fully Assessed Reason for Visit: [employer] [Other] Cmt: [id number] Prescriptions as of 08/09/2024 - gabapentin (NEURONTIN) 400 mg capsule Take 400 mg by mouth. - famotidine (PEPCID) 20 mg tablet Take 1 tablet by mouth two times a day. - rifAMPin (RIFADIN) 300 mg capsule Take 2 pills once monthly - ofloxacin (FLOXIN) 400 mg tablet Take 1 pill once monthly - Minocycline HCl 100 mg tablet Take 1 pill once monthly - triamcinolone acetonide (KENALOG) 0.1 % cream Apply 1 application to affected area two times a day. (No more than 21 days per month) - HUMALOG U-100 INSULIN 100 unit/mL injection INJECT 90 UNITS DAILY VIA INSULIN PUMP - fluticasone (FLONASE) 50 mcg/actuation nasal spray Use in the nose. - icosapent ethyl (VASCEPA) 1 gram Take 1 g by mouth. 2 caps in the AM and 2 caps in the PM - levothyroxine (SYNTHROID) 50 mcg tablet TAKE 2 TABLETS DAILY - rosuvastatin (CRESTOR) 20 mg tablet TAKE ONE AND ONE-HALF TABLETS ONCE DAILY - ibuprofen (MOTRIN) 800 mg tablet Take 800 mg by mouth every 6 hours as needed. - cyclobenzaprine (FLEXERIL) 10 mg tablet Take 10 mg by mouth three times daily as needed. - PROAIR HFA 90 mcg/actuation inhaler Inhale 2 Puffs as instructed as needed. - ADVAIR HFA 115-21 mcg/actuation inhaler Inhale 4 Puffs as instructed once daily. - MUCINEX 600 mg 12 hr tablet Take 2 tablets by mouth once daily as needed. - Subcutaneous Insulin Pump (ACCU-CHEK SPIRIT INSULIN PUMP) misc Basal rates: 24:00 --1.6units/hr; 0300:-2.3units/hr;06:00-1.8;11:00-1.8;12:00-2.0;16:00-2.2;19:00-2.7;21:00-2.4 ;22:00-1.6. Bolus: 2 unit/6 Gms CHO each meal; correction : 1 unit every 25 mg > 125 mg/dl. Eva hein. hrd: tmp bas at 80% - lisinopril (ZESTRIL) 2.5 mg tablet Take 4 tablets by mouth once daily. - aspirin, enteric coated (ECOTRIN LOW STRENGTH) 81 mg ORAL EC tablet Take 1 tablet by mouth once daily. - fluoxetine hcl(PROZAC 20 MG CAP) 3 tabs daily - ONE TOUCH ULTRA TEST STRIPS chekc 6-8 timea a day(insulin pump) - ONE TOUCH FINE POINT LANCET uses 6-8 a day - CENTRUM ECHINACEA CAPSULE 100MG PO Facility-Administered Medications as of 08/09/2024 - triamcinolone acetonide 40 mg injection (KeNALog 10) Problem List As Of Date 07/16/2024 Noted Resolved DIABETES UNCOMPL OLGA-UNCONTRLLED [NNC2524] 07/20/2002 MIXED HYPERLIPIDEMIA [E78.2] 06/12/2004 HYPOPOTASSEMIA [E87.6] 06/12/2004 ED. [N52.9] 07/22/2005 Peyronie's. [N48.89] 08/08/2005 ABNORMAL THYROID FUNCT STUDY (neg MCAB) [R94.6] 02/03/2006 11/27/2018 acquired hypothyroidism [E03.8] 03/05/2011 11/27/2018 Diabetes mellitus type 1, uncontrolled, without*02/13/2016 11/27/2018 Adult onset hypothyroidism [E03.8] 02/13/2016 11/27/2018 Background diabetic retinopathy (HCC) [E11.3299]02/13/2016 Encounter Status:Closed by DORA AREVALO on 07/16/24 MIRIAN Observed: 07/13/2024 12:00 AM Status: COMPLETED Source: [facility] Telephone (SPNMAV) JACQUIE LANTIGUA ([id number]) 1965 M Date Time Provider Department 07/13/24 MIGDALIA UREÑA SPNMAV During your visit today, we recorded the following information about you: Yael Villar, CAMILA 07/13/2024 10:11 AM Signed The pt is calling, he had a back injection 2 weeks ago, he states he felt fine for about 40 hours after the injection but then he was right back to the level of pain he had before it. He would like to know what the next steps are. He does not have a follow up appt scheduled. You may call him back at the number listed in contacts and may leave a message. Afsaneh Marshall MA 07/13/2024 12:15 PM Signed Called and spoke with patient. Patient states had about 48 hours of relief from spine injection on 06/29/2024. Patient is currently taking gabapentin, Motrin 800 mg and Flexeril. Advised patient Dr. Ureña is out of the office until next week. Advised patient to continue above medications, use ice/heat as tolerated. If no improvement by next week, contact the office for Dr. Ureña' recommendations. Allergies As of Date: 07/13/2024 Noted Allergy Reaction HUMIRA (ADALIMUMAB) 08/20/2017 8 - GI Upset METHOTREXATE 05/21/2019 16 - Unknown RED DYE 07/04/2002 16 - Unknown Date Reviewed: 07/08/2024 Reviewed by: Glo Sandra, JANIE.CAR SUPPLIER - Fully Assessed Reason for Visit: continued back pain [Other] Prescriptions as of 07/13/2024 - gabapentin (NEURONTIN) 400 mg capsule Take 400 mg by mouth. - famotidine (PEPCID) 20 mg tablet Take 1 tablet by mouth two times a day. - rifAMPin (RIFADIN) 300 mg capsule Take 2 pills once monthly - ofloxacin (FLOXIN) 400 mg tablet Take 1 pill once monthly - Minocycline HCl 100 mg tablet Take 1 pill once monthly - triamcinolone acetonide (KENALOG) 0.1 % cream Apply 1 application to affected area two times a day. (No more than 21 days per month) - HUMALOG U-100 INSULIN 100 unit/mL injection INJECT 90 UNITS DAILY VIA INSULIN PUMP - fluticasone (FLONASE) 50 mcg/actuation nasal spray Use in the nose. - icosapent ethyl (VASCEPA) 1 gram Take 1 g by mouth. 2 caps in the AM and 2 caps in the PM - levothyroxine (SYNTHROID) 50 mcg tablet TAKE 2 TABLETS DAILY - rosuvastatin (CRESTOR) 20 mg tablet TAKE ONE AND ONE-HALF TABLETS ONCE DAILY - ibuprofen (MOTRIN) 800 mg tablet Take 800 mg by mouth every 6 hours as needed. - cyclobenzaprine (FLEXERIL) 10 mg tablet Take 10 mg by mouth three times daily as needed. - PROAIR HFA 90 mcg/actuation inhaler Inhale 2 Puffs as instructed as needed. - ADVAIR HFA 115-21 mcg/actuation inhaler Inhale 4 Puffs as instructed once daily. - MUCINEX 600 mg 12 hr tablet Take 2 tablets by mouth once daily as needed. - Subcutaneous Insulin Pump (ACCU-CHEK SPIRIT INSULIN PUMP) misc Basal rates: 24:00 --1.6units/hr; 0300:-2.3units/hr;06:00-1.8;11:00-1.8;12:00-2.0;16:00-2.2;19:00-2.7;21:00-2.4 ;22:00-1.6. Bolus: 2 unit/6 Gms CHO each meal; correction : 1 unit every 25 mg > 125 mg/dl. Eva hein. hrd: tmp bas at 80% - lisinopril (ZESTRIL) 2.5 mg tablet Take 4 tablets by mouth once daily. - aspirin, enteric coated (ECOTRIN LOW STRENGTH) 81 mg ORAL EC tablet Take 1 tablet by mouth once daily. - fluoxetine hcl(PROZAC 20 MG CAP) 3 tabs daily - ONE TOUCH ULTRA TEST STRIPS chekc 6-8 timea a day(insulin pump) - ONE TOUCH FINE POINT LANCET uses 6-8 a day - CENTRUM ECHINACEA CAPSULE 100MG PO Facility-Administered Medications as of 07/13/2024 - triamcinolone acetonide 40 mg injection (KeNALog 10) Problem List As Of Date 07/13/2024 Noted Resolved DIABETES UNCOMPL OLGA-UNCONTRLLED [[id number]] 07/20/2002 MIXED HYPERLIPIDEMIA [E78.2] 06/12/2004 HYPOPOTASSEMIA [E87.6] 06/12/2004 ED. [N52.9] 07/22/2005 Peyronie's. [N48.89] 08/08/2005 ABNORMAL THYROID FUNCT STUDY (neg MCAB) [R94.6] 02/03/2006 11/27/2018 acquired hypothyroidism [E03.8] 03/05/2011 11/27/2018 Diabetes mellitus type 1, uncontrolled, without*02/13/2016 11/27/2018 Adult onset hypothyroidism [E03.8] 02/13/2016 11/27/2018 Background diabetic retinopathy (HCC) [E11.3299]02/13/2016 Encounter Status:Closed by AFSANEH MARSHALL on 07/13/24 PROGRESS Observed: 07/08/2024 3:30 PM Status: COMPLETED Source: [facility] HNO ID: [id number] Author: GLO SANDRA APRN.CAR SUPPLIER Service: ? Author Type: Nurse Practitioner Type: Progress Notes Filed: 07/08/2024 15:55 Note Text: HISTORY OF PRESENT ILLNESS Mr. Lantigua is a 58 year old male presenting here today for a follow up of type 1 diabetes mellitus, hyperlipidemia and hypothyroidism. Last visit with Dr. Villagomez was 12/2023. As I recall, he was diagnosed with type 1 diabetes in 1990. Microvascular complications include retinopathy hx of photocoagulation. He is uptodate with ophthalmology evaluation- states eyes are stable. Now using Medtronic 770 G- most recent settings as below. POC HbA1c 6.9%. Has been having issues with his back- did get worked up for cancer due to bone lesions found on imaging. Recently had steroid injection in back. Exacerbating factors include: labile BG Current diabetes regimen is as follows: BASAL Midnight 1.6 4AM 2.3 6AM 1.80 Noon 2.00 4PM 2.20 7PM 2.70 9PM 2.40 10PM 1.60 BOLUS 1 units per 4.5 grams CHO ISF 1 unit to lower by 25 mg/dL He is checking his blood glucose 5 times daily + sensor. Our staff was unable to login to [employer], therefore pump / sensor was not able to be downloaded. POC BG readings range from 114-315 Hypoglycemia frequency: infrequent, but present at times. Hypoglycemia awareness: Yes Regarding symptoms of hyperglycemia, he is not experiencing any symptoms such as polyuria, polydipsia, nocturia or rapid weight loss or blurry vision, Regarding his thyroid, he was diagnosed with this around 2014. He is taking levothyroxine 50 mcg/day (two tabs) seven days/week. No past medical history on file. PAST SURGICAL HISTORY age 5: ADENOIDECTOMY PRIMARY <AGE 11 Comment: Adenoidectomy 05/08: LAPS ABD PRTMANDOMENTUM DX W/WO SPEC BR/WA SPX Comment: Laparoscopy: mass in the omentum age 5: TONSILLECTOMY PRIMARY/SECONDARY <AGE 11 Comment: Tonsillectomy FAMILY HISTORY Problem Relation Age of Onset None Mother MVP Lipids Father dementia. Multiple strokes. Ischemic Heart Disease Other cousing CAD age 44. None Son None Daughter Diabetes Paternal Uncle Social History Tobacco Use Smoking status: Never Smokeless tobacco: Never Substance Use Topics Alcohol use: Yes Drug use: No Allergies As of Date: 07/08/2024 Allergen Noted Reaction HUMIRA [ADALIMUMAB] 08/20/2017 GI Upset METHOTREXATE 05/21/2019 Unknown RED DYE 07/2002 Unknown Fully Assessed 07/08/2024 Current Outpatient Medications Medication Sig Dispense Refill gabapentin (NEURONTIN) 400 mg capsule Take 400 mg by mouth. famotidine (PEPCID) 20 mg tablet Take 1 tablet by mouth two times a day. 180 tablet 3 rifAMPin (RIFADIN) 300 mg capsule Take 2 pills once monthly 16 capsule 0 ofloxacin (FLOXIN) 400 mg tablet Take 1 pill once monthly 8 tablet 0 Minocycline HCl 100 mg tablet Take 1 pill once monthly 8 tablet 0 triamcinolone acetonide (KENALOG) 0.1 % cream Apply 1 application to affected area two times a day. (No more than 21 days per month) 453.6 g 3 HUMALOG U-100 INSULIN 100 unit/mL injection INJECT 90 UNITS DAILY VIA INSULIN PUMP 100 mL 3 fluticasone (FLONASE) 50 mcg/actuation nasal spray Use in the nose. icosapent ethyl (VASCEPA) 1 gram Take 1 g by mouth. 2 caps in the AM and 2 caps in the PM levothyroxine (SYNTHROID) 50 mcg tablet TAKE 2 TABLETS DAILY 180 tablet 4 rosuvastatin (CRESTOR) 20 mg tablet TAKE ONE AND ONE-HALF TABLETS ONCE DAILY 135 tablet 2 ibuprofen (MOTRIN) 800 mg tablet Take 800 mg by mouth every 6 hours as needed. cyclobenzaprine (FLEXERIL) 10 mg tablet Take 10 mg by mouth three times daily as needed. PROAIR HFA 90 mcg/actuation inhaler Inhale 2 Puffs as instructed as needed. ADVAIR HFA 115-21 mcg/actuation inhaler Inhale 4 Puffs as instructed once daily. MUCINEX 600 mg 12 hr tablet Take 2 tablets by mouth once daily as needed. 0 Subcutaneous Insulin Pump (ACCU-CHEK SPIRIT INSULIN PUMP) misc Basal rates: 24:00 --1.6units/hr; 0300:-2.3units/hr;06:00-1.8;11:00-1.8;12:00-2.0;16:00-2.2;19:00-2.7;21:00-2.4 ;22:00-1.6. Bolus: 2 unit/6 Gms CHO each meal; correction : 1 unit every 25 mg > 125 mg/dl. Eva wrk. hrd: tmp bas at 80% 1 Each 0 lisinopril (ZESTRIL) 2.5 mg tablet Take 4 tablets by mouth once daily. (Patient taking differently: Take 2.5 mg by mouth once daily.) 90 tablet 3 aspirin, enteric coated (ECOTRIN LOW STRENGTH) 81 mg ORAL EC tablet Take 1 tablet by mouth once daily. 0 fluoxetine hcl(PROZAC 20 MG CAP) 3 tabs daily 0 0 ONE TOUCH ULTRA TEST STRIPS chekc 6-8 timea a day(insulin pump) 700 3 ONE TOUCH FINE POINT LANCET uses 6-8 a day 700 3 CENTRUM ECHINACEA CAPSULE 100MG PO 0 Current Facility-Administered Medications Medication Dose Route Frequency Provider Last Rate Last Admin triamcinolone acetonide 40 mg injection (KeNALog 10) 40 mg INTRALESIONAL q 1 MONTH Blanca Martinez MD 10 mg at 05/18/24 1200 Review of Systems GENERAL: No weight loss, malaise or fevers RESPIRATORY: Negative for cough, hemoptysis, wheezing, COPD, dyspnea or shortness of breath CARDIOVASCULAR: Negative for chest pain, leg swelling, CHF or palpitations GI: No nausea, vomiting, or diarrhea ENDOCRINE: Negative for cold or heat intolerance, polyuria, polydipsia and goiter NEUROLOGIC:Negative for focal numbness or weakness, headaches and dizziness or syncope. Physical examination BP 151/82 Pulse 72 Wt 90.2 kg (198 lb 13.7 oz) BMI 30.24 kg/m? General appearance: Well appearing, alert, in no acute distress, well-hydrated, well nourished. Skin: Skin color, texture, turgor normal, no suspicious rashes or lesions HEART: normal rate LUNGS: unlabored, normal respiratory rate EXTREMITIES No deformities, No skin discoloration and No edema NEURO: Speech normal, mental status intact, no tremor noted. DATA Creatinine Date Value Ref Range Status 11/16/2022 0.94 0.6 - 1.3 MG/DL Final Hemoglobin A1C (%) Date Value 11/16/2022 7.2 Hemoglobin A1C (POCT) (%) Date Value 12/31/2023 7.2 ) No components found for: URINEALBUMIN Cholesterol, Total (mg/dL) Date Value 12/28/2003 245 HDL Cholesterol (mg/dL) Date Value 12/28/2003 66 LDL Cholesterol (mg/dL) Date Value 12/28/2003 157 Triglyceride (mg/dL) Date Value 12/28/2003 111 [facility] CMP (CMP) (FOR REMOTE [facility] USE) Component Ref Range AND Units 2 wk ago SODIUM 136 - 145 mmol/L 137 POTASSIUM 3.5 - 5.1 mmol/L 4.4 CHLORIDE 98 - 107 mmol/L 101 CARBON DIOXIDE 21.0 - 32.0 mmol/L 24.7 ANION GAP 15.7 GLUCOSE 74 - 106 mg/dL 162 High BLOOD UREA NITROGEN 7.0 - 18.0 mg/dL 14.0 CREATININE 0.70 - 1.30 mg/dL 1.00 [facility] EGFR-AF COMORAN >=60 >60 TB EGFR-NON AF COMORAN >=60 >60 BUN CREATININE RATIO 14.0 CALCIUM 8.5 - 10.1 mg/dL 9.3 BILIRUBIN TOTAL 0.2 - 1.0 mg/dL 0.5 ASPARTATE AMINO TRANSFERASE 15 - 37 U/L 32 ALANINE AMINOTRANSFERASE 16 - 63 U/L 34 ALKALINE PHOSPHATASE 46 - 116 U/L 56 TOTAL PROTEIN 6.4 - 8.2 g/dL 6.9 ALBUMIN LEVEL 3.4 - 5.0 g/dL 4.0 GLOBULIN g/dL 2.9 ALBUMIN GLOBULIN RATIO 1.4 Resulting Agency [facility] Specimen Collected: 06/18/24 6:24 AM Performed by: [employer] Last Resulted: 06/18/24 4:33 PM Received From: [employer] Result Received: 06/29/24 8:38 AM ALL LIPID PROFILE (FASTING) Component Ref Range AND Units 2 wk ago Comments TRIGLYCERIDES <=150 mg/dL 190 High CHOLESTEROL <=200 mg/dL 222 High HDL CHOLESTEROL 40 - 60 mg/dL 76 High > or =60 mg/dl - LOW CARDIOVASCULAR RISK <40 mg/dl - HIGH CARDIOVASCULAR RISK LDL CHOLESTEROL CALCULATED mg/dL 108.0 <100 mg/dl OPTIMAL 100-129 mg/dl NEAR OR ABOVE OPTIMAL 130-159 mg/dl BORDERLINE HIGH 160-189 mg/dl HIGH >190 mg/dl VERY HIGH VLDL CHOLESTEROL mg/dL 38.0 CHOL HDL RATIO 2.9 3.3 - 4.4 LOW RISK 4.4 - 7.1 AVERAGE RISK 7.1 - 11.0 MODERATE RISK >11.0 HIGH RISK Resulting Agency [facility] Specimen Collected: 06/18/24 6:24 AM Performed by: [employer] [facility] Resulted: 06/18/24 4:33 PM Received From: [employer] Result Received: 06/29/24 8:38 AM Microalbumin / creatinine urine ratio Specimen: Urine - Urine specimen obtained by clean catch procedure (specimen) Component Ref Range AND Units 4 wk ago Comments CREATININE, RANDOM URINE 20 - 320 mg/dL 43 ALBUMIN, URINE See Note: mg/dL <0.2 Reference Range: Reference Range Not established ALBUMIN/CREATININE RATIO, RANDOM URINE <30 mg/g creat NOTE Resulting Agency [facility] Resulting Agency Comment Specimen Collected: 06/09/24 2:17 PM Performed by: [employer] Resulted: 06/13/24 7:38 AM Received From: [employer] Result Received: 06/29/24 8:38 AM TSH Specimen: Blood - Venous blood specimen (specimen) Component Ref Range AND Units 2 mo ago TSH 0.40 - 4.50 mIU/L 1.67 Resulting Agency [facility] Narrative Performed by [employer] Specimen Collected: 04/29/24 11:31 AM Performed by: [employer] Resulted: 04/30/24 6:04 AM Received From: [employer] Result Received: 05/18/24 9:14 AM ALL THYROID STIM HORMONE Component Ref Range AND Units 2 wk ago THYROID STIMULATING HORMONE 0.358 - 3.740 uIU/mL 4.751 High Resulting Agency [facility] Specimen Collected: 06/18/24 6:24 AM Performed by: [employer] Resulted: 06/18/24 4:33 PM Received From: [employer] Result Received: 06/29/24 8:38 AM Hemoglobin A1c Specimen: Blood - Venous blood specimen (specimen) Component Ref Range AND Units 4 wk ago Comments Hemoglobin A1C <5.7 % of total Hgb 7.6 High Resulting Agency [facility] Specimen Collected: 06/09/24 2:17 PM Performed by: [employer] Resulted: 06/13/24 7:38 AM Received From: [employer] Result Received: 06/29/24 8:38 AM IMPRESSION: Mr. Lantigua is a 58 year old male here for a follow up of type 1 diabetes mellitus, hyperlipidemia and hypothyroidism. RECOMMENDATIONS: 1. Glycemic control: Target HbA1C is less than 7.0% per ADA guidelines. This patient is at goal. Unable to review pump / CGM report today due to technical difficulty but HbA1c is 6.9% today. Recommend the followin) would recommend upgrading pump to 780 G - will email rep 2) continue your current pump settings BASAL Midnight 1.6 4AM 2.3 6AM 1.80 Noon 2.00 4PM 2.20 7PM 2.70 9PM 2.40 10PM 1.60 BOLUS 1 units per 4.5 grams CHO ISF 1 unit to lower by 25 mg/dL 3) continue levothyroxine 50 mcg/day (two tabs) daily 4) see Dr. Villagomez in 6 months, labs prior (printed requisitions, [facility] will obtain [facility]) The patient was reminded to check his blood glucose as he is doing, fasting, before meals, and to record the data in a logbook. He was advised to bring their logbook to each office visit. I recommended at least 150 minutes per week of moderate physical activity, such as walking and to reduce carbohydrates and overall caloric intake. 2. Hypertension/BP control: BP goal for patients with diabetes is 130/80. This patient is not at target on their current regimen. Managed by PCP. 3. Lipids: Target LDL cholesterol in patients with diabetes is less than 100, less than 70 if patient has overt CVD. Several studies have shown cardiovascular benefits of statin therapy in all patients with diabetes over age 40 with at least 1 CVD risk factor. This patient is currently at target on statin therapy. 4. Antiplatelet therapy: Low dose antiplatelet therapy is recommended for patients with diabetes at increased cardiovascular risk. This includes most men over age 50 and most women over age 60. 5. Nephropathy screening: Annual measurement of urine albumin excretion is recommended in patients with diabetes. This patient does not have microalbuminuria and is on STALIN-I or ARB therapy. 6. Ophthalmology: Annual dilated eye exams are recommended for patients with type 1 and type 2 diabetes. This patient is up to date with their annual eye exam and has no history of retinopathy. 7. Hypothyroidsim: TSH in April at goal. More recent TSH 2 weeks ago with slightly elevation. Patient has been stable on current LT4 dose for many years. Will continue levothyroxine 50 mcg/day (two tabs) daily and repeat prior to follow up. Is clinically euthyroid. Any part of this document that has been added/copied AND pasted from other documents has been reviewed for accuracy and updated as appropriate at the time of the patient encounter. Glo Sandra APRN.CAR SUPPLIER CNOV Observed: 07/08/2024 3:30 PM Status: COMPLETED Source: [facility] Office Visit (ENDOLN) JACQUIE LANTIGUA ([id number]) 1965 M Date Time Provider Department 07/08/24 3:30 PM GLO SANDRA During your visit today, we recorded the following information about you: Pulse Blood pressure Weight 72/minute 151/82 90.2 kg Glo Sandra APRN.CAR SUPPLIER 07/08/2024 3:55 PM Addendum HISTORY OF PRESENT ILLNESS Mr. Lantigua is a 58 year old male presenting here today for a follow up of type 1 diabetes mellitus, hyperlipidemia and hypothyroidism. Last visit with Dr. Villagomez was 12/2023. As I recall, he was diagnosed with type 1 diabetes in 1990. Microvascular complications include retinopathy hx of photocoagulation. He is uptodate with ophthalmology evaluation- states eyes are stable. Now using [employer] 770 G- most recent settings as below. POC HbA1c 6.9%. Has been having issues with his back- did get worked up for cancer due to bone lesions found on imaging. Recently had steroid injection in back. Exacerbating factors include: labile BG Current diabetes regimen is as follows: BASAL Midnight 1.6 4AM 2.3 6AM 1.80 Noon 2.00 4PM 2.20 7PM 2.70 9PM 2.40 10PM 1.60 BOLUS 1 units per 4.5 grams CHO ISF 1 unit to lower by 25 mg/dL He is checking his blood glucose 5 times daily + sensor. Our staff was unable to login to [employer], therefore pump / sensor was not able to be downloaded. POC BG readings range from 114-315 Hypoglycemia frequency: infrequent, but present at times. Hypoglycemia awareness: Yes Regarding symptoms of hyperglycemia, he is not experiencing any symptoms such as polyuria, polydipsia, nocturia or rapid weight loss or blurry vision, Regarding his thyroid, he was diagnosed with this around 2014. He is taking levothyroxine 50 mcg/day (two tabs) seven days/week. No past medical history on file. PAST SURGICAL HISTORY age 5: ADENOIDECTOMY PRIMARY <AGE 11 Comment: Adenoidectomy 05/08: LAPS ABD PRTMANDOMENTUM DX W/WO SPEC BR/WA SPX Comment: Laparoscopy: mass in the omentum age 5: TONSILLECTOMY PRIMARY/SECONDARY <AGE 11 Comment: Tonsillectomy FAMILY HISTORY Problem Relation Age of Onset None Mother MVP Lipids Father dementia. Multiple strokes. Ischemic Heart Disease Other cousing CAD age 44. None Son None Daughter Diabetes Paternal Uncle Social History Tobacco Use Smoking status: Never Smokeless tobacco: Never Substance Use Topics Alcohol use: Yes Drug use: No Allergies As of Date: 07/08/2024 Allergen Noted Reaction HUMIRA [ADALIMUMAB] 08/20/2017 GI Upset METHOTREXATE 05/21/2019 Unknown RED DYE 07/2002 Unknown Fully Assessed 07/08/2024 Current Outpatient Medications Medication Sig Dispense Refill gabapentin (NEURONTIN) 400 mg capsule Take 400 mg by mouth. famotidine (PEPCID) 20 mg tablet Take 1 tablet by mouth two times a day. 180 tablet 3 rifAMPin (RIFADIN) 300 mg capsule Take 2 pills once monthly 16 capsule 0 ofloxacin (FLOXIN) 400 mg tablet Take 1 pill once monthly 8 tablet 0 Minocycline HCl 100 mg tablet Take 1 pill once monthly 8 tablet 0 triamcinolone acetonide (KENALOG) 0.1 % cream Apply 1 application to affected area two times a day. (No more than 21 days per month) 453.6 g 3 HUMALOG U-100 INSULIN 100 unit/mL injection INJECT 90 UNITS DAILY VIA INSULIN PUMP 100 mL 3 fluticasone (FLONASE) 50 mcg/actuation nasal spray Use in the nose. icosapent ethyl (VASCEPA) 1 gram Take 1 g by mouth. 2 caps in the AM and 2 caps in the PM levothyroxine (SYNTHROID) 50 mcg tablet TAKE 2 TABLETS DAILY 180 tablet 4 rosuvastatin (CRESTOR) 20 mg tablet TAKE ONE AND ONE-HALF TABLETS ONCE DAILY 135 tablet 2 ibuprofen (MOTRIN) 800 mg tablet Take 800 mg by mouth every 6 hours as needed. cyclobenzaprine (FLEXERIL) 10 mg tablet Take 10 mg by mouth three times daily as needed. PROAIR HFA 90 mcg/actuation inhaler Inhale 2 Puffs as instructed as needed. ADVAIR HFA 115-21 mcg/actuation inhaler Inhale 4 Puffs as instructed once daily. MUCINEX 600 mg 12 hr tablet Take 2 tablets by mouth once daily as needed. 0 Subcutaneous Insulin Pump (ACCU-CHEK SPIRIT INSULIN PUMP) misc Basal rates: 24:00 --1.6units/hr; 0300:-2.3units/hr;06:00-1.8;11:00-1.8;12:00-2.0;16:00-2.2;19:00-2.7;21:00-2.4 ;22:00-1.6. Bolus: 2 unit/6 Gms CHO each meal; correction : 1 unit every 25 mg > 125 mg/dl. Whn wrk. hrd: tmp bas at 80% 1 Each 0 lisinopril (ZESTRIL) 2.5 mg tablet Take 4 tablets by mouth once daily. (Patient taking differently: Take 2.5 mg by mouth once daily.) 90 tablet 3 aspirin, enteric coated (ECOTRIN LOW STRENGTH) 81 mg ORAL EC tablet Take 1 tablet by mouth once daily. 0 fluoxetine hcl(PROZAC 20 MG CAP) 3 tabs daily 0 0 ONE TOUCH ULTRA TEST STRIPS chekc 6-8 timea a day(insulin pump) 700 3 ONE TOUCH FINE [place] LANCET uses 6-8 a day 700 3 CENTRUM ECHINACEA CAPSULE 100MG PO 0 Current Facility-Administered Medications Medication Dose Route Frequency Provider Last Rate Last Admin triamcinolone acetonide 40 mg injection (KeNALog 10) 40 mg INTRALESIONAL q 1 MONTH Blanca Martinez MD 10 mg at 05/18/24 1200 Review of Systems GENERAL: No weight loss, malaise or fevers RESPIRATORY: Negative for cough, hemoptysis, wheezing, COPD, dyspnea or shortness of breath CARDIOVASCULAR: Negative for chest pain, leg swelling, CHF or palpitations GI: No nausea, vomiting, or diarrhea ENDOCRINE: Negative for cold or heat intolerance, polyuria, polydipsia and goiter NEUROLOGIC:Negative for focal numbness or weakness, headaches and dizziness or syncope. Physical examination BP 151/82 Pulse 72 Wt 90.2 kg (198 lb 13.7 oz) BMI 30.24 kg/m? General appearance: Well appearing, alert, in no acute distress, well-hydrated, well nourished. Skin: Skin color, texture, turgor normal, no suspicious rashes or lesions HEART: normal rate LUNGS: unlabored, normal respiratory rate EXTREMITIES No deformities, No skin discoloration and No edema NEURO: Speech normal, mental status intact, no tremor noted. DATA Creatinine Date Value Ref Range Status 11/16/2022 0.94 0.6 - 1.3 MG/DL Final Hemoglobin A1C (%) Date Value 11/16/2022 7.2 Hemoglobin A1C (POCT) (%) Date Value 12/31/2023 7.2 ) No components found for: URINEALBUMIN Cholesterol, Total (mg/dL) Date Value 12/28/2003 245 HDL Cholesterol (mg/dL) Date Value 12/28/2003 66 LDL Cholesterol (mg/dL) Date Value 12/28/2003 157 Triglyceride (mg/dL) Date Value 12/28/2003 111 [facility] CMP (CMP) (FOR REMOTE [facility] USE) Component Ref Range AND Units 2 wk ago SODIUM 136 - 145 mmol/L 137 POTASSIUM 3.5 - 5.1 mmol/L 4.4 CHLORIDE 98 - 107 mmol/L 101 CARBON DIOXIDE 21.0 - 32.0 mmol/L 24.7 ANION GAP 15.7 GLUCOSE 74 - 106 mg/dL 162 High BLOOD UREA NITROGEN 7.0 - 18.0 mg/dL 14.0 CREATININE 0.70 - 1.30 mg/dL 1.00 TBH EGFR-AF COMORAN >=60 >60 TBH EGFR-NON AF COMORAN >=60 >60 BUN CREATININE RATIO 14.0 CALCIUM 8.5 - 10.1 mg/dL 9.3 BILIRUBIN TOTAL 0.2 - 1.0 mg/dL 0.5 ASPARTATE AMINO TRANSFERASE 15 - 37 U/L 32 ALANINE AMINOTRANSFERASE 16 - 63 U/L 34 ALKALINE PHOSPHATASE 46 - 116 U/L 56 TOTAL PROTEIN 6.4 - 8.2 g/dL 6.9 ALBUMIN LEVEL 3.4 - 5.0 g/dL 4.0 GLOBULIN g/dL 2.9 ALBUMIN GLOBULIN RATIO 1.4 Resulting Agency [facility] Specimen Collected: 06/18/24 6:24 AM Performed by: [employer] Last Resulted: 06/18/24 4:33 PM Received From: [employer] Result Received: 06/29/24 8:38 AM ALL LIPID PROFILE (FASTING) Component Ref Range AND Units 2 wk ago Comments TRIGLYCERIDES <=150 mg/dL 190 High CHOLESTEROL <=200 mg/dL 222 High HDL CHOLESTEROL 40 - 60 mg/dL 76 High > or =60 mg/dl - LOW CARDIOVASCULAR RISK <40 mg/dl - HIGH CARDIOVASCULAR RISK LDL CHOLESTEROL CALCULATED mg/dL 108.0 <100 mg/dl OPTIMAL 100-129 mg/dl NEAR OR ABOVE OPTIMAL 130-159 mg/dl BORDERLINE HIGH 160-189 mg/dl HIGH >190 mg/dl VERY HIGH VLDL CHOLESTEROL mg/dL 38.0 CHOL HDL RATIO 2.9 3.3 - 4.4 LOW RISK 4.4 - 7.1 AVERAGE RISK 7.1 - 11.0 MODERATE RISK >11.0 HIGH RISK Resulting Agency [facility] Specimen Collected: 06/18/24 6:24 AM Performed by: [employer] Last Resulted: 06/18/24 4:33 PM Received From: [employer] Result Received: 06/29/24 8:38 AM Microalbumin / creatinine urine ratio Specimen: Urine - Urine specimen obtained by clean catch procedure (specimen) Component Ref Range AND Units 4 wk ago Comments CREATININE, RANDOM URINE 20 - 320 mg/dL 43 ALBUMIN, URINE See Note: mg/dL <0.2 Reference Range: Reference Range Not established ALBUMIN/CREATININE RATIO, RANDOM URINE <30 mg/g creat NOTE Resulting Agency [facility] Resulting Agency Comment Specimen Collected: 06/09/24 2:17 PM Performed by: [employer] Resulted: 06/13/24 7:38 AM Received From: [employer] Result Received: 06/29/24 8:38 AM TSH Specimen: Blood - Venous blood specimen (specimen) Component Ref Range AND Units 2 mo ago TSH 0.40 - 4.50 mIU/L 1.67 Resulting Agency [facility] Narrative Performed by [facility] Specimen Collected: 04/29/24 11:31 AM Performed by: [employer] Resulted: 04/30/24 6:04 AM Received From: [employer] Result Received: 05/18/24 9:14 AM ALL THYROID STIM HORMONE Component Ref Range AND Units 2 wk ago THYROID STIMULATING HORMONE 0.358 - 3.740 uIU/mL 4.751 High Resulting Agency [facility] Specimen Collected: 06/18/24 6:24 AM Performed by: [employer] Last Resulted: 06/18/24 4:33 PM Received From: [employer] Result Received: 06/29/24 8:38 AM Hemoglobin A1c Specimen: Blood - Venous blood specimen (specimen) Component Ref Range AND Units 4 wk ago Comments Hemoglobin A1C <5.7 % of total Hgb 7.6 High Resulting Agency [facility] Specimen Collected: 06/09/24 2:17 PM Performed by: [employer] Resulted: 06/13/24 7:38 AM Received From: [employer] Result Received: 06/29/24 8:38 AM IMPRESSION: Mr. Lantigua is a 58 year old male here for a follow up of type 1 diabetes mellitus, hyperlipidemia and hypothyroidism. RECOMMENDATIONS: 1. Glycemic control: Target HbA1C is less than 7.0% per ADA guidelines. This patient is at goal. Unable to review pump / CGM report today due to technical difficulty but HbA1c is 6.9% today. Recommend the followin) would recommend upgrading pump to 780 G - will email rep 2) continue your current pump settings BASAL Midnight 1.6 4AM 2.3 6AM 1.80 Noon 2.00 4PM 2.20 7PM 2.70 9PM 2.40 10PM 1.60 BOLUS 1 units per 4.5 grams CHO ISF 1 unit to lower by 25 mg/dL 3) continue levothyroxine 50 mcg/day (two tabs) daily 4) see Dr. Villagomez in 6 months, labs prior (printed requisitions, [facility] will obtain [facility]) The patient was reminded to check his blood glucose as he is doing, fasting, before meals, and to record the data in a logbook. He was advised to bring their logbook to each office visit. I recommended at least 150 minutes per week of moderate physical activity, such as walking and to reduce carbohydrates and overall caloric intake. 2. Hypertension/BP control: BP goal for patients with diabetes is 130/80. This patient is not at target on their current regimen. Managed by PCP. 3. Lipids: Target LDL cholesterol in patients with diabetes is less than 100, less than 70 if patient has overt CVD. Several studies have shown cardiovascular benefits of statin therapy in all patients with diabetes over age 40 with at least 1 CVD risk factor. This patient is currently at target on statin therapy. 4. Antiplatelet therapy: Low dose antiplatelet therapy is recommended for patients with diabetes at increased cardiovascular risk. This includes most men over age 50 and most women over age 60. 5. Nephropathy screening: Annual measurement of urine albumin excretion is recommended in patients with diabetes. This patient does not have microalbuminuria and is on STALIN-I or ARB therapy. 6. Ophthalmology: Annual dilated eye exams are recommended for patients with type 1 and type 2 diabetes. This patient is up to date with their annual eye exam and has no history of retinopathy. 7. Hypothyroidsim: TSH in April at goal. More recent TSH 2 weeks ago with slightly elevation. Patient has been stable on current LT4 dose for many years. Will continue levothyroxine 50 mcg/day (two tabs) daily and repeat prior to follow up. Is clinically euthyroid. Any part of this document that has been added/copied AND pasted from other documents has been reviewed for accuracy and updated as appropriate at the time of the patient encounter. Glo Sandra APRN.Glo Garrett APRN.CNP 07/08/2024 3:46 PM Signed 1) would recommend upgrading pump to 780 G 2) continue your current pump settings BASAL Midnight 1.6 4AM 2.3 6AM 1.80 Noon 2.00 4PM 2.20 7PM 2.70 9PM 2.40 10PM 1.60 BOLUS 1 units per 4.5 grams CHO ISF 1 unit to lower by 25 mg/dL 3) continue levothyroxine 50 mcg/day (two tabs) daily 4) see Dr. Villagomez in 6 months, labs prior Allergies As of Date: 07/08/2024 Noted Allergy Reaction HUMIRA (ADALIMUMAB) 08/20/2017 8 - GI Upset METHOTREXATE 05/21/2019 16 - Unknown RED DYE 07/04/2002 16 - Unknown Date Reviewed: 07/08/2024 Reviewed by: Glo Sandra APRN.CNP - Fully Assessed Reason for Visit: Follow Up [171] Primary Visit Diagnosis:Diabetes mellitus type 1, controlled, insulin dependent (HCC) [E10.9] Other Visit Diagnoses:Mixed hyperlipidemia [E78.2] Acquired hypothyroidism [E03.9] Order(s):HEMOGLOBIN A1C (POC) [[id number]] Order #: [id number]. #:[id number] COMPREHENSIVE METABOLIC PANEL [SQCMP] Order #: [id number] FUTURE ALBUMIN/CREATININE RATIO, URINE [SQUACR] Order #: [id number] FUTURE HEMOGLOBIN A1C [WGCCI4Y] Order #: [id number] FUTURE LIPID PANEL BASIC [SQLIPB] Order #: [id number] FUTURE THYROID STIMULATING HORMONE [SQTSH] Order #: [id number] FUTURE Prescriptions as of 07/08/2024 - gabapentin (NEURONTIN) 400 mg capsule Take 400 mg by mouth. - famotidine (PEPCID) 20 mg tablet Take 1 tablet by mouth two times a day. - rifAMPin (RIFADIN) 300 mg capsule Take 2 pills once monthly - ofloxacin (FLOXIN) 400 mg tablet Take 1 pill once monthly - Minocycline HCl 100 mg tablet Take 1 pill once monthly - triamcinolone acetonide (KENALOG) 0.1 % cream Apply 1 application to affected area two times a day. (No more than 21 days per month) - HUMALOG U-100 INSULIN 100 unit/mL injection INJECT 90 UNITS DAILY VIA INSULIN PUMP - fluticasone (FLONASE) 50 mcg/actuation nasal spray Use in the nose. - icosapent ethyl (VASCEPA) 1 gram Take 1 g by mouth. 2 caps in the AM and 2 caps in the PM - levothyroxine (SYNTHROID) 50 mcg tablet TAKE 2 TABLETS DAILY - rosuvastatin (CRESTOR) 20 mg tablet TAKE ONE AND ONE-HALF TABLETS ONCE DAILY - ibuprofen (MOTRIN) 800 mg tablet Take 800 mg by mouth every 6 hours as needed. - cyclobenzaprine (FLEXERIL) 10 mg tablet Take 10 mg by mouth three times daily as needed. - PROAIR HFA 90 mcg/actuation inhaler Inhale 2 Puffs as instructed as needed. - ADVAIR HFA 115-21 mcg/actuation inhaler Inhale 4 Puffs as instructed once daily. - MUCINEX 600 mg 12 hr tablet Take 2 tablets by mouth once daily as needed. - Subcutaneous Insulin Pump (ACCU-CHEK SPIRIT INSULIN PUMP) misc Basal rates: 24:00 --1.6units/hr; 0300:-2.3units/hr;06:00-1.8;11:00-1.8;12:00-2.0;16:00-2.2;19:00-2.7;21:00-2.4 ;22:00-1.6. Bolus: 2 unit/6 Gms CHO each meal; correction : 1 unit every 25 mg > 125 mg/dl. Eva hein. hrd: tmp bas at 80% - lisinopril (ZESTRIL) 2.5 mg tablet Take 4 tablets by mouth once daily. - aspirin, enteric coated (ECOTRIN LOW STRENGTH) 81 mg ORAL EC tablet Take 1 tablet by mouth once daily. - fluoxetine hcl(PROZAC 20 MG CAP) 3 tabs daily - ONE TOUCH ULTRA TEST STRIPS chekc 6-8 timea a day(insulin pump) - ONE TOUCH FINE [place] LANCET uses 6-8 a day - CENTRUM ECHINACEA CAPSULE 100MG PO Facility-Administered Medications as of 07/08/2024 - triamcinolone acetonide 40 mg injection (KeNALog 10) Medication notes this encounter GABAPENTIN 400 MG CAPSULE >> Ej Lindsay MA 07/08/2024 3:15 PM >> EJ LINDSAY Ibeth Jul 08, 2024 3:15 PM 600mg -3 times daily Problem List As Of Date 07/08/2024 Noted Resolved DIABETES UNCOMPL OLGA-UNCONTRLLED [[id number]] 07/20/2002 MIXED HYPERLIPIDEMIA [E78.2] 06/12/2004 HYPOPOTASSEMIA [E87.6] 06/12/2004 ED. [N52.9] 07/22/2005 Peyronie's. [N48.89] 08/08/2005 ABNORMAL THYROID FUNCT STUDY (neg MCAB) [R94.6] 02/03/2006 11/27/2018 acquired hypothyroidism [E03.8] 03/05/2011 11/27/2018 Diabetes mellitus type 1, uncontrolled, without*02/13/2016 11/27/2018 Adult onset hypothyroidism [E03.8] 02/13/2016 11/27/2018 Background diabetic retinopathy (HCC) [E11.3299]02/13/2016 Other instructions from your clinician: 1) would recommend upgrading pump to 780 G 2) continue your current pump settings BASAL Midnight 1.6 4AM 2.3 6AM 1.80 Noon 2.00 4PM 2.20 7PM 2.70 9PM 2.40 10PM 1.60 BOLUS 1 units per 4.5 grams CHO ISF 1 unit to lower by 25 mg/dL 3) continue levothyroxine 50 mcg/day (two tabs) daily 4) see Dr. Villagomez in 6 months, labs prior Disposition: Return in about 6 months (around 01/05/2025). Follow-up and Disposition History for Encounter Date Provider Department Center 07/08/2024 [id number]-[id number] SANDRA [facility] Encounter Status:Closed by GLO SANDRA on 07/08/24 CNPN Observed: 07/01/2024 12:00 AM Status: COMPLETED Source: [facility] JACQUIE LANTIGUA ([id number]) 1965 M Date Time Provider Department 07/01/24 MIGDALIA UREÑA [facility] During your visit today, we recorded the following information about you: Afsaneh Marshall MA 07/01/2024 12:01 PM Signed DATE OF SERVICE: 06/29/2024 PATIENT'S PHONE NUMBERS: [phone] (home) OR @[email or web address]@ PROVIDER: Dr. Ureña PROCEDURE: Elective Pain Management Procedure Spoke directly with patient/caregiver Patient states that they are 90-100% better until this morning. States will continue to monitor symptoms to see if any improvement in 7-10 days. Patient claims to have no problems. Allergies As of Date: 07/01/2024 Noted Allergy Reaction HUMIRA (ADALIMUMAB) 08/20/2017 8 - GI Upset METHOTREXATE 05/21/2019 16 - Unknown RED DYE 07/04/2002 16 - Unknown Date Reviewed: 06/29/2024 Reviewed by: Paola Galdamez, RN - Fully Assessed Reason for Visit: Follow Up Phone Call [[id number]] Prescriptions as of 07/01/2024 - gabapentin (NEURONTIN) 400 mg capsule Take 400 mg by mouth. - famotidine (PEPCID) 20 mg tablet Take 1 tablet by mouth two times a day. - rifAMPin (RIFADIN) 300 mg capsule Take 2 pills once monthly - ofloxacin (FLOXIN) 400 mg tablet Take 1 pill once monthly - Minocycline HCl 100 mg tablet Take 1 pill once monthly - triamcinolone acetonide (KENALOG) 0.1 % cream Apply 1 application to affected area two times a day. (No more than 21 days per month) - HUMALOG U-100 INSULIN 100 unit/mL injection INJECT 90 UNITS DAILY VIA INSULIN PUMP - fluticasone (FLONASE) 50 mcg/actuation nasal spray Use in the nose. - icosapent ethyl (VASCEPA) 1 gram Take 1 g by mouth. 2 caps in the AM and 2 caps in the PM - levothyroxine (SYNTHROID) 50 mcg tablet TAKE 2 TABLETS DAILY - rosuvastatin (CRESTOR) 20 mg tablet TAKE ONE AND ONE-HALF TABLETS ONCE DAILY - ibuprofen (MOTRIN) 800 mg tablet Take 800 mg by mouth every 6 hours as needed. - cyclobenzaprine (FLEXERIL) 10 mg tablet Take 10 mg by mouth three times daily as needed. - PROAIR HFA 90 mcg/actuation inhaler Inhale 2 Puffs as instructed as needed. - ADVAIR HFA 115-21 mcg/actuation inhaler Inhale 4 Puffs as instructed once daily. - MUCINEX 600 mg 12 hr tablet Take 2 tablets by mouth once daily as needed. - Subcutaneous Insulin Pump (ACCU-CHEK SPIRIT INSULIN PUMP) misc Basal rates: 24:00 --1.6units/hr; 0300:-2.3units/hr;06:00-1.8;11:00-1.8;12:00-2.0;16:00-2.2;19:00-2.7;21:00-2.4 ;22:00-1.6. Bolus: 2 unit/6 Gms CHO each meal; correction : 1 unit every 25 mg > 125 mg/dl. Eva hein. hrd: tmp bas at 80% - lisinopril (ZESTRIL) 2.5 mg tablet Take 4 tablets by mouth once daily. - aspirin, enteric coated (ECOTRIN LOW STRENGTH) 81 mg ORAL EC tablet Take 1 tablet by mouth once daily. - fluoxetine hcl(PROZAC 20 MG CAP) 3 tabs daily - ONE TOUCH ULTRA TEST STRIPS chekc 6-8 timea a day(insulin pump) - ONE TOUCH FINE [place] LANCET uses 6-8 a day - CENTRUM ECHINACEA CAPSULE 100MG PO Facility-Administered Medications as of 07/01/2024 - triamcinolone acetonide 40 mg injection (KeNALog 10) Problem List As Of Date 07/01/2024 Noted Resolved DIABETES UNCOMPL OLGA-UNCONTRLLED [[id number]] 07/20/2002 MIXED HYPERLIPIDEMIA [E78.2] 06/12/2004 HYPOPOTASSEMIA [E87.6] 06/12/2004 ED. [N52.9] 07/22/2005 Peyronie's. [N48.89] 08/08/2005 ABNORMAL THYROID FUNCT STUDY (neg MCAB) [R94.6] 02/03/2006 11/27/2018 acquired hypothyroidism [E03.8] 03/05/2011 11/27/2018 Diabetes mellitus type 1, uncontrolled, without*02/13/2016 11/27/2018 Adult onset hypothyroidism [E03.8] 02/13/2016 11/27/2018 Background diabetic retinopathy (HCC) [E11.3299]02/13/2016 Encounter Status:Closed by AFSANEH MARSHALL on 07/01/24 OPERATIVE NO Observed: 06/29/2024 9:01 AM Status: COMPLETED Source: [facility] ID: [id number] Author: MIGDALIA UREÑA DO Service: Pain Management Author Type: Physician Type: Operative Report Filed: 06/29/2024 09:17 Note Text: Pt presents for f/u. Continues to have Left leg pain. Wants to proceed with the previously scheduled injection. Consent obtained. Pt is aware of risks, benefits, alternatives, expected outcome, equipment and personnel. Left side was marked in the pre-op area. Blood glucose was tested today and it was 235. Has a insulin pump/ monitor. Pt is aware that today's procedure will affect this and pt will adjust meds, diet and exercise accordingly after rechecking blood glucose. [facility] approved time out was performed identifying the site, side and level of procedure prior to start of procedure. The patient was offered a procedure / surgery at a [facility] facility. It is not possible to know either the risk of delaying the surgery or procedure or chance of getting an infection with perfect accuracy, but a joint decision was made between the patient and the surgeon/proceduralist to proceed at this time with the scheduled surgery/procedure as indicated on the consent form. [facility] [place] - ELECTIVE PROCEDURE Lumbar Transforaminal Epidural Steroid Injection and/or Selective Nerve Root Block under Fluoroscopy Indication: Lumbar Spinal Stenosis with neurogenic claudication and Lt thoracolumbar radiculitis Dr. Nabeel Sy The risks and benefits of the procedure were discussed with the patient. The verbal and written informed consent of the patient was obtained. The patient was taken to the fluoroscopy suite. The patient was placed in the prone position on the fluoroscopic table, and the lumbar area was prepped and draped in a sterile fashion. DuraPrep was used per skin prep guidelines. Using fluoroscopic guidance the L5 vertebral body was definitively identified using the most caudal normal disc space labeled as L5-S1. The iliac crest was also visualized as a secondary landmark identifying the L4-5 level. First image is with a needle marker on the Left side. The LT L4-5 neural foramen was identified using fluoroscopic guidance after which the overlying skin was anesthetized using sterile technique with 1% preservative free Xylocaine. A sterile 5 inch 22G spinal needle was introduced after which the needle tip was carefully directed toward the inferior (6 o'clock) position of the pedicle which formed the roof of the identified foramen. No blood or CSF was aspirated. X-rays were obtained for documentation purpose. A similar procedure was done at the second site The Lt L5-s1 neural foramen was identified using fluoroscopic guidance after which the overlying skin was anesthetized using sterile technique with 1% preservative free Xylocaine. A sterile 5 inch 22G spinal needle was introduced after which the needle tip was carefully directed toward the inferior (6 o'clock) position of the pedicle which formed the roof of the identified foramen. No blood or CSF was aspirated. Omnipaque 300mgI/mL, approximately 1 cc was injected to rule out intravascular placement of the needle at each site. Medial flow was noted on AP/ oblique view along with contrast under the pedicle on the lateral view. X-rays were obtained for documentation purpose. After this, 10 mg of dexamethasone + 5 cc's of 1% Xylocaine preservative free was divided equally and injected into each of the intervertebral The needle was then removed. Vital signs remained normal. There were no complications. Pulse oximeter was used throughout the procedure and the patient's pulse and oxygen saturation remained within normal limits. The patient tolerated the procedure well. The patient was instructed to apply ice over the injection site for twenty minutes every two hours for the next twenty-four to forty-eight hours. The patient was also instructed to contact me if there is any exacerbation of the symptoms. Post procedure instruction sheet was given. The patient was recommended to follow up with me in one to two weeks. Incision/Procedure Start Time: 9:06 AM Incision Close/Procedure End Time: 9:13 AM Date of Service: 06/29/2024 I was present for the entire duration of the procedure and I performed the critical parts of the procedure. Migdalia Ureña DO, MBA NM BONE SCAN WHOLE BODY Observed: 2023 1:59 PM Status: COMPLETED Source: [facility] [place] [address] Nuclear Medicine Report Signed Patient: Jacquie Lantigua MR#: [id number] : 1965 Acct:[id number] Age/Sex: 58 / M ADM Date: 06/25/24 Loc: [place] Room: Type: [facility] Attending Dr: Darryn Araya DO Copies to: Cristy Araya Jr, DO Ward, Jeffrey S DO Ordering Provider: Cristy Araya Jr, DO Date of Service: 06/25/24 NM/NM bone scan whole body: M89.9 Nuclear medicine bone scan of whole body TECHNIQUE: 22.1mCi of technetium 99m labeled MDP was administered. Planar imaging obtained in multiple planes. COMPARISON: MRI lumbar spine 06/02/2024. Concern for enhancing thoracolumbar spine the left iliac bone lesions concerning for malignancy HISTORY: Bony lesions identified with MRI of the lumbar spine 06/02/2024 Findings: Homogeneous uptake of the skeletal system identified. No abnormal increased or decreased uptake seen to correspond with the MRI findings. Degenerative uptake of the medial portion of left knee. Degenerative uptake of the left thumb. NM/NM bone scan whole body IMPRESSION: No abnormal osteoblastic activity to correspond with bony lesions. Osteolytic metastasis not excluded. May consider additional imaging to assess for primary malignancy. Impression dictated by: Alfie Morin M.D.06/25/2024 2:23 PM Dictation Location: [place] [address] Transcribed By: [facility] 06/25/24 0703 Dictated By: Alfie Morin DO 06/25/24 1353 Signed By: <Electronically signed by Alfie Morin DO in [place]> 06/25/24 1423 PROGRESS Observed: 06/07/2024 10:03 AM Status: COMPLETED Source: [facility] HNO ID: [id number] Author: MIGDALIA UREÑA DO Service: ? Author Type: Physician Type: Progress Notes Filed: 06/18/2024 13:16 Note Text: Spine Care Path Low Back Pain - Chronic (> 12 weeks) Initial Exam SUBJECTIVE HISTORY OF PRESENT ILLNESS: Jacquie Lantigua is a 58 year old male who presents with a chief complaint of low back pain and is seen in consultation requested by Dr. Baez for an opinion regarding left sided low back pain with radiation into left hip and down left leg to ankle since February 2024. My final recommendations will be communicated back to the requesting physician by way of shared medical record or letter via US mail. Other Issues Addressed at the Visit Today: None. Precipitating Event: None Aggravating Factors: Any movement Alleviating Factors: Medications, Heat application Prior Therapy: PT - 4 weeks in May 2024, Flexeril, Motrin 800 mg, Gabapentin 400 mg tid, heat PREVIOUS TREATMENTS IN THE LAST SIX MONTHS Active conservative therapy in the last six months (see below) 1. Physical therapy: Yes - 4 weeks in May 2024 2. Home exercise program after PT: Yes - 3-4 days a week for 15-30 minutes 3. A physician supervised home exercise program (HEP): No 4. Associate Creative Director: No 5. What are your limitations: Any type of movement Passive conservative therapy in the last six months (see below) 1. NSAIDS: Motrin 800 mg - last dose this morning, 2. Prescription pain medication: Flexeril - last dose 2 hours ago, Gabapentin 400 mg - last dose this am 3. Acupuncture: No 4. Tens unit: No Litigation: No Workers' Compensation: No YELLOW AND BLUE FLAGS No-Neg Attitude; Back Pain is Disabling No-Avoiding Activity (for Fear of Pain) No-Depression or Anxiety Disorders No-Social Problems No-Substance Use Disorder No-Job Dissatisfaction No-Financial Disincentives Patient Entered Questionnaires Oswestry Score: Pain: 3 - Pain medication provides me with moderate relief from pain. Personal Care: 2 - It is painful to take care of myself, and I am slow and careful. Liftin - I can lift heavy weights, but it causes increased pain. Walkin - Pain prevents me from walking more than a 1/4 mile. Sittin - Pain prevents me from sitting for more than 1 hour. Standin - I can stand as long as I want, but it increases my pain. Sleepin - Pain does not prevent me from sleeping well. Social Life: 3 - Pain prevents me from going out very often. Travelin - My pain restricts my travel over 2 hours. Employment/Homemakin - I can perform most of my homemaking/job duties, but pain prevents me from performing more physically stressful activities (eg lifting, vacuuming). Score: 19/50 Oswestry Interpretation: 20-40% = Moderate disability PROMIS Score Percentiles Percentiles provide an indication of how the patient's score ranks in relation to the general population. Higher percentile rankings indicate better function/quality of life. 50th percentile is the average of the general population and indicates half of respondents had a worse score. Depression Screening: PHQ-9 Self-Harm (Item 9) response options: 0 Not at all 1 Several days 2 More than half the days 3 Nearly every day PHQ-9 Levels: 0-4 No - mild depression 5-9 Mild depression 10-14 Moderate depression 15-19 Moderately severe depression 20-27 Severe depression ACTIVE PROBLEM LIST Type I (Juvenile Type) Diabetes Mellitus Without Mention of Complication, Uncontrolled Mixed Hyperlipidemia Hypopotassemia ED. Peyronie's. Background Diabetic Retinopathy No past medical history on file. PAST SURGICAL HISTORY age 5: ADENOIDECTOMY PRIMARY <AGE 11 Comment: Adenoidectomy 05/08: LAPS ABD PRTMANDOMENTUM DX W/WO SPEC BR/WA SPX Comment: Laparoscopy: mass in the omentum age 5: TONSILLECTOMY PRIMARY/SECONDARY <AGE 11 Comment: Tonsillectomy Social History Tobacco Use Smoking status: Never Smokeless tobacco: Never Substance Use Topics Alcohol use: Yes Drug use: No FAMILY HISTORY Problem Relation Age of Onset None Mother MVP Lipids Father dementia. Multiple strokes. Ischemic Heart Disease Other cousing CAD age 44. None Son None Daughter Diabetes Paternal Uncle ALLERGIES Allergen Reactions Humira [Adalimumab] GI Upset Methotrexate Unknown Red Dye Unknown CURRENT MEDICATIONS: gabapentin (NEURONTIN) 400 mg capsuleTake 400 mg by mouth.Disp: Rfl: famotidine (PEPCID) 20 mg tabletTake 1 tablet by mouth two times a day.Disp: 180 tabletRfl: 3 rifAMPin (RIFADIN) 300 mg capsuleTake 2 pills once monthlyDisp: 16 capsuleRfl: 0 ofloxacin (FLOXIN) 400 mg tabletTake 1 pill once monthlyDisp: 8 tabletRfl: 0 Minocycline HCl 100 mg tabletTake 1 pill once monthlyDisp: 8 tabletRfl: 0 triamcinolone acetonide (KENALOG) 0.1 % creamApply 1 application to affected area two times a day. (No more than 21 days per month)Disp: 453.6 gRfl: 3 HUMALOG U-100 INSULIN 100 unit/mL injectionINJECT 90 UNITS DAILY VIA INSULIN PUMPDisp: 100 mLRfl: 3 fluticasone (FLONASE) 50 mcg/actuation nasal sprayUse in the nose.Disp: Rfl: icosapent ethyl (VASCEPA) 1 gramTake 1 g by mouth. 2 caps in the AM and 2 caps in the PMDisp: Rfl: levothyroxine (SYNTHROID) 50 mcg tabletTAKE 2 TABLETS DAILYDisp: 180 tabletRfl: 4 rosuvastatin (CRESTOR) 20 mg tabletTAKE ONE AND ONE-HALF TABLETS ONCE DAILYDisp: 135 tabletRfl: 2 ibuprofen (MOTRIN) 800 mg tabletTake 800 mg by mouth every 6 hours as needed.Disp: Rfl: cyclobenzaprine (FLEXERIL) 10 mg tabletTake 10 mg by mouth three times daily as needed.Disp: Rfl: PROAIR HFA 90 mcg/actuation inhalerInhale 2 Puffs as instructed as needed.Disp: Rfl: ADVAIR HFA 115-21 mcg/actuation inhalerInhale 4 Puffs as instructed once daily.Disp: Rfl: MUCINEX 600 mg 12 hr tabletTake 2 tablets by mouth once daily as needed.Disp: Rfl: 0 Subcutaneous Insulin Pump (ACCU-CHEK SPIRIT INSULIN PUMP) miscBasal rates: 24:00 --1.6units/hr; 0300:-2.3units/hr;06:00-1.8;11:00-1.8;12:00-2.0;16:00-2.2;19:00-2.7;21:00-2.4 ;22:00-1.6. Bolus: 2 unit/6 Gms CHO each meal; correction : 1 unit every 25 mg > 125 mg/dl. Whn wrk. hrd: tmp bas at 80%Disp: 1 EachRfl: 0 lisinopril (ZESTRIL) 2.5 mg tabletTake 4 tablets by mouth once daily.Disp: 90 tabletRfl: 3 (Patient taking differently: Take 2.5 mg by mouth once daily.) aspirin, enteric coated (ECOTRIN LOW STRENGTH) 81 mg ORAL EC tabletTake 1 tablet by mouth once daily.Disp: Rfl: 0 fluoxetine hcl(PROZAC 20 MG CAP)3 tabs dailyDisp: 0Rfl: 0 ONE TOUCH ULTRA TEST STRIPSchekc 6-8 timea a day(insulin pump)Disp: 700Rfl: 3 ONE TOUCH FINE POINT LANCETuses 6-8 a dayDisp: 700Rfl: 3 CENTRUM ECHINACEA CAPSULE 100MG PODisp: Rfl: 0 REVIEW OF SYSTEMS: PAIN ASSESSMENT: See HPI. GENERAL: Denies fever, chills malaise and weight loss. HEENT: No recent change in vision or hearing. CARDIOVASCULAR: Hypertension RESPIRATORY: None GI: Heartburn : Enlarged prostate MUSCULOSKELETAL: Negative for joint pain or swelling, back pain or muscle pain. SKIN: Denies rash or itching. PSYCHOLOGICAL: Denies uncontrolled depression or anxiety. NEURO: Denies CVA, seizures, headaches. ENDOCRINE: Positive for DM on Insulin HEMATOLOGY/LYMPHOLOGY: Denies cancer, bleeding or clotting disorders, anemia,and DVT's. ALLERGIC/IMMUNOLOGICAL: Denies risks for infection, or recent MRSA infections. OBJECTIVE: PHYSICAL EXAM Ht 172.7 cm (5' 8 ) Wt 88.5 kg (195 lb) BMI 29.65 kg/m? SIGNATURE: Migdalia Ureña DO PATIENT NAME: Jacquie Lantigua DATE: June 07, 2024 TIME: 10:03 AM I agree with the Chief Complaint, ROS, and Past Histories independently gathered by the clinical system support technician and the remaining scribed note accurately describes my personal service to the patient and I have edited the above note to reflect this. See notes for physical exam and treatment plan. CC - LBP with lt leg pain. PHYSICAL EXAM: GENERAL APPEARANCE - well nourished, well hydrated, no apparent distress SKIN - No skin breakdown noted over lumbar spine. HEAD - Normal cephalic, atraumatic EYES - Extra ocular movement intact, no conjunctivitis, no nystagmus. EARS - No drainage noted, pinna intact NOSE - No epistaxis noted THROAT - No thyromegaly, no gross lymphadenopathy LUNGS - Normal respiratory effort, mild inspiratory wheezing CARDIAC - S1S2 VASCULAR - No evidence of peripheral edema, No significant varicosity ABDOMEN - no guarding noted NEURO - Alert and oriented, cooperative, answers questions appropriately GAIT - No significant antalgic gait noted. Able to demonstrate heel and toe stand/walk smoothly. SENSORY EXAM - Grossly intact to superficial light touch bilaterally to lower limbs except over lt great toe which is diminished MOTOR STRENGTH DURING SEATED NEURO EXAM - No apparent weakness bilaterally in Hip flexors, knee extensors, plantar flexors, dorsiflexors and extensor hallux longus. MUSCLE STRETCH REFLEXES - symmetric bilaterally in patella and achilles. Negative Kristofer's b/l ROM - Lumbar flexion and extension is moderately limited Lateral bending to rt and lt is moderately limited HIP ROM - no significant loss in external rotation and internal rotation on the rt, lt was mildly limited in IR/ER KNEE ROM - No significant loss in terminal extension b/l. ANKLE ROM - no significant loss in plantar flexion and dorsiflexion b/l. MUSCLE MASS - No gross muscle atrophy or asymmetry noted bilaterally in lower limb. TENDERNESS - No significant reproduction of pain with palpation of greater trochanter bilaterally. No significant pain with palpation over gluteal muscles. Minimal pain with palpation over b/l L3-s1 paraspinous muscles. Negative thigh Thrust b/l Fabers test was negative b/l PACE test was negative b/l Distraction test was negative b/l LILIANA SIGNS - 1) Tenderness: Appropriate 2) Simulation/Axial Loading/ROT: Appropriate 3) Distraction: Seated SLR: Appropriate 4) Regional Disturbances: Appropriate 5) Overreaction: Negative. NEURO/PHYSICAL SIGNS: No significant babinski, seated straight leg raising test b/l. Patricks test was negative b/l. RADIOGRAPHY: Reports / films reviewed with patient. Lumbar spine MRI :06/02/24 Report available in computer. The bone lesion of the thoracic and lumbar spine seen on prior examination demonstrate avid postcontrast enhancement and most concerning for malignancy. Enhancing lesions are also identified within the visualized left iliac bone. No enhancing lesion or pathologic enhancement of the visualized final cord or cauda equina. Lumbar spine MRI: 05/11/24 Report available in computer. Lesions of T12, L1, L2, and L4 as detailed are nonspecific and may represent atypical intraosseous hemangiomas but are concerning for malignancy given their signal characteristics. MRI of the lumbar spine with contrast is recommended to further evaluate. IMPRESSION: See diagnosis. PLAN: Discussed evidence based options including use of medications, non-surgical and surgical options. Educated about likely pathology and reviewed anatomy and prognosis. At present, pt would like to continue with non surgical care. Patient has been an insulin-dependent diabetic for 32 years. Quit smoking about 2 years ago. His last colonoscopy was about 9 years ago. He has lost 2 to 3 pounds unintentionally recently. I personally spoke to Dr. Araya. I have stated to him that he has metastatic disease. He is additional workup including chest x-rays bone scan forward as well as colonoscopy. In the meantime, he is interested in proceeding with spinal injections. We reviewed this as an option for him we will proceed with left-sided TFESI. Interventional pain procedure epidural injection recommended. Verbal consent was obtained. Risks, benefits, alternatives and personnal were explained. Procedure was described in detail to patients satisfaction. Patient verblizes understanding. Patient is recommended to cancel the procedure if patient has any concerns. Patient to follow up with me at the earliest convenience. ( Lt L4-5, 5-s1 ) May have to modify level(s) / location/ approach based on any new relevant information/ imaging/ symptom presentation and response to treatments. The majority of the visit was spent counseling and/or coordinating care for the patient on the date of the service which included preparing to see the patient, [id number] patient care, completing clinical documentation, obtaining and/or reviewing separately obtained history, performing a medically appropriate examination, and educating the patient/family/caregiver and ordering medications, tests, or procedures. Follow up with primary physician for routine care, blood pressure evaluation, labwork, physical exam as scheduled and for any medical concerns. I have answered all the questions regarding patients current diagnosis, care and treatment plan to patients satisfaction during today's visit. Patient verbalize understanding of current diagnosis and treatment plan. Follow up with me as scheduled Notes from todays visit will be forwarded to consulting/requesting physician. Migdalia Ureña DO, MBA CNOV Observed: 06/07/2024 10:00 AM Status: COMPLETED Source: [facility] Office Visit (SPNMAV) JACQUIE LANTIGUA ([id number]) 1965 M Date Time Provider Department 06/07/24 10:00 AM MIGDALIA UREÑA SPNJAV During your visit today, we recorded the following information about you: Weight Height 88.5 kg 1.727 m Migdalia Ureña DO 06/18/2024 1:16 PM Addendum Spine Care Path Low Back Pain - Chronic (> 12 weeks) Initial Exam SUBJECTIVE HISTORY OF PRESENT ILLNESS: Jacquie Lantigua is a 58 year old male who presents with a chief complaint of low back pain and is seen in consultation requested by Dr. Baez for an opinion regarding left sided low back pain with radiation into left hip and down left leg to ankle since February 2024. My final recommendations will be communicated back to the requesting physician by way of shared medical record or letter via [place] mail. Other Issues Addressed at the Visit Today: None. Precipitating Event: None Aggravating Factors: Any movement Alleviating Factors: Medications, Heat application Prior Therapy: PT - 4 weeks in May 2024, Flexeril, Motrin 800 mg, Gabapentin 400 mg tid, heat PREVIOUS TREATMENTS IN THE LAST SIX MONTHS Active conservative therapy in the last six months (see below) 1. Physical therapy: Yes - 4 weeks in May 2024 2. Home exercise program after PT: Yes - 3-4 days a week for 15-30 minutes 3. A physician supervised home exercise program (HEP): No 4. Associate Creative Director: No 5. What are your limitations: Any type of movement Passive conservative therapy in the last six months (see below) 1. NSAIDS: Motrin 800 mg - last dose this morning, 2. Prescription pain medication: Flexeril - last dose 2 hours ago, Gabapentin 400 mg - last dose this am 3. Acupuncture: No 4. Tens unit: No Litigation: No Workers' Compensation: No YELLOW AND BLUE FLAGS No-Neg Attitude; Back Pain is Disabling No-Avoiding Activity (for Fear of Pain) No-Depression or Anxiety Disorders No-Social Problems No-Substance Use Disorder No-Job Dissatisfaction No-Financial Disincentives Patient Entered Questionnaires Oswestry Score: Pain: 3 - Pain medication provides me with moderate relief from pain. Personal Care: 2 - It is painful to take care of myself, and I am slow and careful. Liftin - I can lift heavy weights, but it causes increased pain. Walkin - Pain prevents me from walking more than a 1/4 mile. Sittin - Pain prevents me from sitting for more than 1 hour. Standin - I can stand as long as I want, but it increases my pain. Sleepin - Pain does not prevent me from sleeping well. Social Life: 3 - Pain prevents me from going out very often. Travelin - My pain restricts my travel over 2 hours. Employment/Homemakin - I can perform most of my homemaking/job duties, but pain prevents me from performing more physically stressful activities (eg lifting, vacuuming). Score: 19/50 Oswestry Interpretation: 20-40% = Moderate disability PROMIS Score Percentiles Percentiles provide an indication of how the patient's score ranks in relation to the general population. Higher percentile rankings indicate better function/quality of life. 50th percentile is the average of the general population and indicates half of respondents had a worse score. Depression Screening: PHQ-9 Self-Harm (Item 9) response options: 0 Not at all 1 Several days 2 More than half the days 3 Nearly every day PHQ-9 Levels: 0-4 No - mild depression 5-9 Mild depression 10-14 Moderate depression 15-19 Moderately severe depression 20-27 Severe depression ACTIVE PROBLEM LIST Type I (Juvenile Type) Diabetes Mellitus Without Mention of Complication, Uncontrolled Mixed Hyperlipidemia Hypopotassemia ED. Peyronie's. Background Diabetic Retinopathy No past medical history on file. PAST SURGICAL HISTORY age 5: ADENOIDECTOMY PRIMARY <AGE 11 Comment: Adenoidectomy 05/08: LAPS ABD PRTMANDOMENTUM DX W/WO SPEC BR/WA SPX Comment: Laparoscopy: mass in the omentum age 5: TONSILLECTOMY PRIMARY/SECONDARY <AGE 11 Comment: Tonsillectomy Social History Tobacco Use Smoking status: Never Smokeless tobacco: Never Substance Use Topics Alcohol use: Yes Drug use: No FAMILY HISTORY Problem Relation Age of Onset None Mother MVP Lipids Father dementia. Multiple strokes. Ischemic Heart Disease Other cousing CAD age 44. None Son None Daughter Diabetes Paternal Uncle ALLERGIES Allergen Reactions Humira [Adalimumab] GI Upset Methotrexate Unknown Red Dye Unknown CURRENT MEDICATIONS: gabapentin (NEURONTIN) 400 mg capsuleTake 400 mg by mouth.Disp: Rfl: famotidine (PEPCID) 20 mg tabletTake 1 tablet by mouth two times a day.Disp: 180 tabletRfl: 3 rifAMPin (RIFADIN) 300 mg capsuleTake 2 pills once monthlyDisp: 16 capsuleRfl: 0 ofloxacin (FLOXIN) 400 mg tabletTake 1 pill once monthlyDisp: 8 tabletRfl: 0 Minocycline HCl 100 mg tabletTake 1 pill once monthlyDisp: 8 tabletRfl: 0 triamcinolone acetonide (KENALOG) 0.1 % creamApply 1 application to affected area two times a day. (No more than 21 days per month)Disp: 453.6 gRfl: 3 HUMALOG U-100 INSULIN 100 unit/mL injectionINJECT 90 UNITS DAILY VIA INSULIN PUMPDisp: 100 mLRfl: 3 fluticasone (FLONASE) 50 mcg/actuation nasal sprayUse in the nose.Disp: Rfl: icosapent ethyl (VASCEPA) 1 gramTake 1 g by mouth. 2 caps in the AM and 2 caps in the PMDisp: Rfl: levothyroxine (SYNTHROID) 50 mcg tabletTAKE 2 TABLETS DAILYDisp: 180 tabletRfl: 4 rosuvastatin (CRESTOR) 20 mg tabletTAKE ONE AND ONE-HALF TABLETS ONCE DAILYDisp: 135 tabletRfl: 2 ibuprofen (MOTRIN) 800 mg tabletTake 800 mg by mouth every 6 hours as needed.Disp: Rfl: cyclobenzaprine (FLEXERIL) 10 mg tabletTake 10 mg by mouth three times daily as needed.Disp: Rfl: PROAIR HFA 90 mcg/actuation inhalerInhale 2 Puffs as instructed as needed.Disp: Rfl: ADVAIR HFA 115-21 mcg/actuation inhalerInhale 4 Puffs as instructed once daily.Disp: Rfl: MUCINEX 600 mg 12 hr tabletTake 2 tablets by mouth once daily as needed.Disp: Rfl: 0 Subcutaneous Insulin Pump (ACCU-CHEK SPIRIT INSULIN PUMP) miscBasal rates: 24:00 --1.6units/hr; 0300:-2.3units/hr;06:00-1.8;11:00-1.8;12:00-2.0;16:00-2.2;19:00-2.7;21:00-2.4 ;22:00-1.6. Bolus: 2 unit/6 Gms CHO each meal; correction : 1 unit every 25 mg > 125 mg/dl. Sangeethan alfredok. hrd: tmp bas at 80%Disp: 1 EachRfl: 0 lisinopril (ZESTRIL) 2.5 mg tabletTake 4 tablets by mouth once daily.Disp: 90 tabletRfl: 3 (Patient taking differently: Take 2.5 mg by mouth once daily.) aspirin, enteric coated (ECOTRIN LOW STRENGTH) 81 mg ORAL EC tabletTake 1 tablet by mouth once daily.Disp: Rfl: 0 fluoxetine hcl(PROZAC 20 MG CAP)3 tabs dailyDisp: 0Rfl: 0 ONE TOUCH ULTRA TEST STRIPSchekc 6-8 timea a day(insulin pump)Disp: 700Rfl: 3 ONE TOUCH FINE POINT LANCETuses 6-8 a dayDisp: 700Rfl: 3 CENTRUM ECHINACEA CAPSULE 100MG PODisp: Rfl: 0 REVIEW OF SYSTEMS: PAIN ASSESSMENT: See HPI. GENERAL: Denies fever, chills malaise and weight loss. HEENT: No recent change in vision or hearing. CARDIOVASCULAR: Hypertension RESPIRATORY: None GI: Heartburn : Enlarged prostate MUSCULOSKELETAL: Negative for joint pain or swelling, back pain or muscle pain. SKIN: Denies rash or itching. PSYCHOLOGICAL: Denies uncontrolled depression or anxiety. NEURO: Denies CVA, seizures, headaches. ENDOCRINE: Positive for DM on Insulin HEMATOLOGY/LYMPHOLOGY: Denies cancer, bleeding or clotting disorders, anemia,and DVT's. ALLERGIC/IMMUNOLOGICAL: Denies risks for infection, or recent MRSA infections. OBJECTIVE: PHYSICAL EXAM Ht 172.7 cm (5' 8 ) Wt 88.5 kg (195 lb) BMI 29.65 kg/m? SIGNATURE: Migdalia Ureña DO PATIENT NAME: Jacquie Lantigua DATE: June 07, 2024 TIME: 10:03 AM I agree with the Chief Complaint, ROS, and Past Histories independently gathered by the clinical system support technician and the remaining scribed note accurately describes my personal service to the patient and I have edited the above note to reflect this. See notes for physical exam and treatment plan. CC - LBP with lt leg pain. PHYSICAL EXAM: GENERAL APPEARANCE - well nourished, well hydrated, no apparent distress SKIN - No skin breakdown noted over lumbar spine. HEAD - Normal cephalic, atraumatic EYES - Extra ocular movement intact, no conjunctivitis, no nystagmus. EARS - No drainage noted, pinna intact NOSE - No epistaxis noted THROAT - No thyromegaly, no gross lymphadenopathy LUNGS - Normal respiratory effort, mild inspiratory wheezing CARDIAC - S1S2 VASCULAR - No evidence of peripheral edema, No significant varicosity ABDOMEN - no guarding noted NEURO - Alert and oriented, cooperative, answers questions appropriately GAIT - No significant antalgic gait noted. Able to demonstrate heel and toe stand/walk smoothly. SENSORY EXAM - Grossly intact to superficial light touch bilaterally to lower limbs except over lt great toe which is diminished MOTOR STRENGTH DURING SEATED NEURO EXAM - No apparent weakness bilaterally in Hip flexors, knee extensors, plantar flexors, dorsiflexors and extensor hallux longus. MUSCLE STRETCH REFLEXES - symmetric bilaterally in patella and achilles. Negative Kristofer's b/l ROM - Lumbar flexion and extension is moderately limited Lateral bending to rt and lt is moderately limited HIP ROM - no significant loss in external rotation and internal rotation on the rt, lt was mildly limited in IR/ER KNEE ROM - No significant loss in terminal extension b/l. ANKLE ROM - no significant loss in plantar flexion and dorsiflexion b/l. MUSCLE MASS - No gross muscle atrophy or asymmetry noted bilaterally in lower limb. TENDERNESS - No significant reproduction of pain with palpation of greater trochanter bilaterally. No significant pain with palpation over gluteal muscles. Minimal pain with palpation over b/l L3-s1 paraspinous muscles. Negative thigh Thrust b/l Fabers test was negative b/l PACE test was negative b/l Distraction test was negative b/l LILIANA SIGNS - 1) Tenderness: Appropriate 2) Simulation/Axial Loading/ROT: Appropriate 3) Distraction: Seated SLR: Appropriate 4) Regional Disturbances: Appropriate 5) Overreaction: Negative. NEURO/PHYSICAL SIGNS: No significant babinski, seated straight leg raising test b/l. Patricks test was negative b/l. RADIOGRAPHY: Reports / films reviewed with patient. Lumbar spine MRI :06/02/24 Report available in computer. The bone lesion of the thoracic and lumbar spine seen on prior examination demonstrate avid postcontrast enhancement and most concerning for malignancy. Enhancing lesions are also identified within the visualized left iliac bone. No enhancing lesion or pathologic enhancement of the visualized final cord or cauda equina. Lumbar spine MRI: 05/11/24 Report available in computer. Lesions of T12, L1, L2, and L4 as detailed are nonspecific and may represent atypical intraosseous hemangiomas but are concerning for malignancy given their signal characteristics. MRI of the lumbar spine with contrast is recommended to further evaluate. IMPRESSION: See diagnosis. PLAN: Discussed evidence based options including use of medications, non-surgical and surgical options. Educated about likely pathology and reviewed anatomy and prognosis. At present, pt would like to continue with non surgical care. Patient has been an insulin-dependent diabetic for 32 years. Quit smoking about 2 years ago. His last colonoscopy was about 9 years ago. He has lost 2 to 3 pounds unintentionally recently. I personally spoke to Dr. Araya. I have stated to him that he has metastatic disease. He is additional workup including chest x-rays bone scan forward as well as colonoscopy. In the meantime, he is interested in proceeding with spinal injections. We reviewed this as an option for him we will proceed with left-sided TFESI. Interventional pain procedure epidural injection recommended. Verbal consent was obtained. Risks, benefits, alternatives and personnal were explained. Procedure was described in detail to patients satisfaction. Patient verblizes understanding. Patient is recommended to cancel the procedure if patient has any concerns. Patient to follow up with me at the earliest convenience. ( Lt L4-5, 5-s1 ) May have to modify level(s) / location/ approach based on any new relevant information/ imaging/ symptom presentation and response to treatments. The majority of the visit was spent counseling and/or coordinating care for the patient on the date of the service which included preparing to see the patient, [id number] patient care, completing clinical documentation, obtaining and/or reviewing separately obtained history, performing a medically appropriate examination, and educating the patient/family/caregiver and ordering medications, tests, or procedures. Follow up with primary physician for routine care, blood pressure evaluation, labwork, physical exam as scheduled and for any medical concerns. I have answered all the questions regarding patients current diagnosis, care and treatment plan to patients satisfaction during today's visit. Patient verbalize understanding of current diagnosis and treatment plan. Follow up with me as scheduled Notes from todays visit will be forwarded to consulting/requesting physician. Migdalia Ureña DO, MBA Referring Provider: SELF [[id number]] Allergies As of Date: 06/07/2024 Noted Allergy Reaction HUMIRA (ADALIMUMAB) 08/20/2017 8 - GI Upset METHOTREXATE 05/21/2019 16 - Unknown RED DYE 07/04/2002 16 - Unknown Date Reviewed: 06/07/2024 Reviewed by: Migdalia Ureña DO - Fully Assessed Reason for Visit: New Patient [172] Cmt: Left low back/left hip pain with radiation down left leg to ankle Primary Visit Diagnosis:Spinal stenosis of lumbar region, unspecified whether neurogenic claudication present [M48.061] Other Visit Diagnosis:Lumbar radiculopathy, chronic [M54.16] Order(s):SPINE INTERVENTION PROCEDURE [[id number]] Order #: [id number] Prescriptions as of 06/18/2024 - gabapentin (NEURONTIN) 400 mg capsule Take 400 mg by mouth. - famotidine (PEPCID) 20 mg tablet Take 1 tablet by mouth two times a day. - rifAMPin (RIFADIN) 300 mg capsule Take 2 pills once monthly - ofloxacin (FLOXIN) 400 mg tablet Take 1 pill once monthly - Minocycline HCl 100 mg tablet Take 1 pill once monthly - triamcinolone acetonide (KENALOG) 0.1 % cream Apply 1 application to affected area two times a day. (No more than 21 days per month) - HUMALOG U-100 INSULIN 100 unit/mL injection INJECT 90 UNITS DAILY VIA INSULIN PUMP - fluticasone (FLONASE) 50 mcg/actuation nasal spray Use in the nose. - icosapent ethyl (VASCEPA) 1 gram Take 1 g by mouth. 2 caps in the AM and 2 caps in the PM - levothyroxine (SYNTHROID) 50 mcg tablet TAKE 2 TABLETS DAILY - rosuvastatin (CRESTOR) 20 mg tablet TAKE ONE AND ONE-HALF TABLETS ONCE DAILY - ibuprofen (MOTRIN) 800 mg tablet Take 800 mg by mouth every 6 hours as needed. - cyclobenzaprine (FLEXERIL) 10 mg tablet Take 10 mg by mouth three times daily as needed. - PROAIR HFA 90 mcg/actuation inhaler Inhale 2 Puffs as instructed as needed. - ADVAIR HFA 115-21 mcg/actuation inhaler Inhale 4 Puffs as instructed once daily. - MUCINEX 600 mg 12 hr tablet Take 2 tablets by mouth once daily as needed. - Subcutaneous Insulin Pump (ACCU-CHEK SPIRIT INSULIN PUMP) misc Basal rates: 24:00 --1.6units/hr; 0300:-2.3units/hr;06:00-1.8;11:00-1.8;12:00-2.0;16:00-2.2;19:00-2.7;21:00-2.4 ;22:00-1.6. Bolus: 2 unit/6 Gms CHO each meal; correction : 1 unit every 25 mg > 125 mg/dl. Eva hein. hrd: tmp bas at 80% - lisinopril (ZESTRIL) 2.5 mg tablet Take 4 tablets by mouth once daily. - aspirin, enteric coated (ECOTRIN LOW STRENGTH) 81 mg ORAL EC tablet Take 1 tablet by mouth once daily. - fluoxetine hcl(PROZAC 20 MG CAP) 3 tabs daily - ONE TOUCH ULTRA TEST STRIPS chekc 6-8 timea a day(insulin pump) - ONE TOUCH FINE POINT LANCET uses 6-8 a day - CENTRUM ECHINACEA CAPSULE 100MG PO Facility-Administered Medications as of 06/18/2024 - triamcinolone acetonide 40 mg injection (KeNALog 10) Problem List As Of Date 06/07/2024 Noted Resolved DIABETES UNCOMPL OLGA-UNCONTRLLED [[id number]] 07/20/2002 MIXED HYPERLIPIDEMIA [E78.2] 06/12/2004 HYPOPOTASSEMIA [E87.6] 06/12/2004 ED. [N52.9] 07/22/2005 Peyronie's. [N48.89] 08/08/2005 ABNORMAL THYROID FUNCT STUDY (neg MCAB) [R94.6] 02/03/2006 11/27/2018 acquired hypothyroidism [E03.8] 03/05/2011 11/27/2018 Diabetes mellitus type 1, uncontrolled, without*02/13/2016 11/27/2018 Adult onset hypothyroidism [E03.8] 02/13/2016 11/27/2018 Background diabetic retinopathy (HCC) [E11.3299]02/13/2016 Encounter Status:Closed by MIGDALIA UREÑA on 06/07/24 CNPN Observed: 06/07/2024 12:00 AM Status: COMPLETED Source: [facility] Telephone (SPNMAV) JACQUIE LANTIGUA ([id number]) 1965 M Date Time Provider Department 06/07/24 MIGDALIA UREÑA SPNMAV During your visit today, we recorded the following information about you: Afsaneh Marshall MA 06/07/2024 10:41 AM Signed Patient was seen in office today. Spoke to patient in reguards to pre procedure instructions. Pt must have a city route driver. Pt advised to arrive 30 min prior. Pt advised will also receive a call the day before from the surgery center to confirm date/time. Pt can eat and drink as normal. and Pt can take medications as normal. No alcohol 24 hours prior. Diabetic instructions given. The medication in the injection may raise you blood sugar levels. Please monitor sugar levels and adjust medications as needed. Advised on location of [facility] floor [facility] Pt will receive a follow up call several days after by a java development team lead. If you experience any increase in weakness, difficulty walking or significant increase in pain that last more than 4 hours, please proceed to the Emergency Room and tell them you had a spine procedure done recently. Additionally, call us and notify us of these symptoms. Please call [phone] if you have any questions. Pt verbalized understanding. Silvia Agosto 06/25/2024 2:57 PM Signed Patient calling today asking if Dr. Ureña knows he has had further work up. Patient states all his testing was clear and wants Dr. Ureña to know this before he does a peer to peer for his procedure that is not covered by his insurance. Please advise [phone]. Afsaneh Marshall MA 06/28/2024 12:48 PM Addendum Peer to peer was done and approved by Dr. Navarrete from [facility]. No approval code was given. Patient was notified of approval. Allergies As of Date: 06/07/2024 Noted Allergy Reaction HUMIRA (ADALIMUMAB) 08/20/2017 8 - GI Upset METHOTREXATE 05/21/2019 16 - Unknown RED DYE 07/04/2002 16 - Unknown Date Reviewed: 06/07/2024 Reviewed by: Migdalia Ureña DO - Fully Assessed Reason for Visit: procedure instructions [Other] Prescriptions as of 06/28/2024 - gabapentin (NEURONTIN) 400 mg capsule Take 400 mg by mouth. - famotidine (PEPCID) 20 mg tablet Take 1 tablet by mouth two times a day. - rifAMPin (RIFADIN) 300 mg capsule Take 2 pills once monthly - ofloxacin (FLOXIN) 400 mg tablet Take 1 pill once monthly - Minocycline HCl 100 mg tablet Take 1 pill once monthly - triamcinolone acetonide (KENALOG) 0.1 % cream Apply 1 application to affected area two times a day. (No more than 21 days per month) - HUMALOG U-100 INSULIN 100 unit/mL injection INJECT 90 UNITS DAILY VIA INSULIN PUMP - fluticasone (FLONASE) 50 mcg/actuation nasal spray Use in the nose. - icosapent ethyl (VASCEPA) 1 gram Take 1 g by mouth. 2 caps in the AM and 2 caps in the PM - levothyroxine (SYNTHROID) 50 mcg tablet TAKE 2 TABLETS DAILY - rosuvastatin (CRESTOR) 20 mg tablet TAKE ONE AND ONE-HALF TABLETS ONCE DAILY - ibuprofen (MOTRIN) 800 mg tablet Take 800 mg by mouth every 6 hours as needed. - cyclobenzaprine (FLEXERIL) 10 mg tablet Take 10 mg by mouth three times daily as needed. - PROAIR HFA 90 mcg/actuation inhaler Inhale 2 Puffs as instructed as needed. - ADVAIR HFA 115-21 mcg/actuation inhaler Inhale 4 Puffs as instructed once daily. - MUCINEX 600 mg 12 hr tablet Take 2 tablets by mouth once daily as needed. - Subcutaneous Insulin Pump (ACCU-CHEK SPIRIT INSULIN PUMP) misc Basal rates: 24:00 --1.6units/hr; 0300:-2.3units/hr;06:00-1.8;11:00-1.8;12:00-2.0;16:00-2.2;19:00-2.7;21:00-2.4 ;22:00-1.6. Bolus: 2 unit/6 Gms CHO each meal; correction : 1 unit every 25 mg > 125 mg/dl. Eva hein. hrd: tmp bas at 80% - lisinopril (ZESTRIL) 2.5 mg tablet Take 4 tablets by mouth once daily. - aspirin, enteric coated (ECOTRIN LOW STRENGTH) 81 mg ORAL EC tablet Take 1 tablet by mouth once daily. - fluoxetine hcl(PROZAC 20 MG CAP) 3 tabs daily - ONE TOUCH ULTRA TEST STRIPS chekc 6-8 timea a day(insulin pump) - ONE TOUCH FINE POINT LANCET uses 6-8 a day - CENTRUM ECHINACEA CAPSULE 100MG PO Facility-Administered Medications as of 06/28/2024 - triamcinolone acetonide 40 mg injection (KeNALog 10) Problem List As Of Date 06/07/2024 Noted Resolved DIABETES UNCOMPL OLGA-UNCONTRLLED [[id number]] 07/20/2002 MIXED HYPERLIPIDEMIA [E78.2] 06/12/2004 HYPOPOTASSEMIA [E87.6] 06/12/2004 ED. [N52.9] 07/22/2005 Peyronie's. [N48.89] 08/08/2005 ABNORMAL THYROID FUNCT STUDY (neg MCAB) [R94.6] 02/03/2006 11/27/2018 acquired hypothyroidism [E03.8] 03/05/2011 11/27/2018 Diabetes mellitus type 1, uncontrolled, without*02/13/2016 11/27/2018 Adult onset hypothyroidism [E03.8] 02/13/2016 11/27/2018 Background diabetic retinopathy (HCC) [E11.3299]02/13/2016 Encounter Status:Closed by AFSANEH MARSHALL on 06/07/24 MR LUMBAR SPINE W CONTRAST Observed: 3:25 PM Status: F Source: [facility] EPIC EXAM: MR LUMBAR SPINE W CONT RAST History: Bone lesion seen on prior MRI Technique: Multiplanar multisequence MRI of the lumbar spine was obtained without and with intravenous contrast. Comparison: MRI of the lumbar spine May 07, 2024 Findings: The bone lesion of the thoracic and lumbar spine seen on prior examination demonstrate avid postcontrast enhancement and most concerning for malignancy. Enhancing lesions are also identified within the visualized left iliac bone. No enhancing lesion or pathologic enhancement of the visualized final cord or cauda equina. Visualized paravertebral soft tissues appear within normal limits. IMPRESSION: Enhancing lesions of the thoracolumbar spine and left iliac bone are most concerning for malignancy. ELECTRONICALLY SIGNED BY: Tony Lin DO CNOV Observed: 05/18/2024 9:40 AM Status: COMPLETED Source: [facility] Office Visit (AMDERM) JACQUIE LANTIGUA ([id number]) 1965 M Date Time Provider Department 05/18/24 9:40 AM BLANCA MARTINEZ [facility] During your visit today, we recorded the following information about you: Blanca Martinez MD 05/18/2024 1:06 PM Signed CC: Patient presents with: LESION, SKIN HPI: 58 year old male patient here for: Granuloma annulare Began ONCE monthly rifampin 600 mg, oflaxacin 400 mg and minocycline 100 mg, has completed 3 monthly doses of each Notes some improvement on arms, no improvement on backs of arms or on legs Tolerating meds without SE ILK at last visit - requesting today though does have shoulder injection coming up Unsure if the ILK helped Relates that he previously has taken Humira for this condition, ended up in hospital d/t allergic reaction twice FINAL DIAGNOSIS A. Skin, right upper arm, punch biopsy: - Granuloma anulare (see comment). Derm History: Denies personal history of skin cancer Allergies: ALLERGIES Allergen Reactions Humira [Adalimumab] GI Upset Methotrexate Unknown Red Dye Unknown Medications: Current Outpatient Medications Medication Sig Dispense Refill famotidine (PEPCID) 20 mg tablet Take 1 tablet by mouth two times a day. 180 tablet 3 rifAMPin (RIFADIN) 300 mg capsule Take 2 pills once monthly 16 capsule 0 ofloxacin (FLOXIN) 400 mg tablet Take 1 pill once monthly 8 tablet 0 Minocycline HCl 100 mg tablet Take 1 pill once monthly 8 tablet 0 triamcinolone acetonide (KENALOG) 0.1 % cream Apply 1 application to affected area two times a day. (No more than 21 days per month) 453.6 g 3 HUMALOG U-100 INSULIN 100 unit/mL injection INJECT 90 UNITS DAILY VIA INSULIN PUMP 100 mL 3 fluticasone (FLONASE) 50 mcg/actuation nasal spray Use in the nose. icosapent ethyl (VASCEPA) 1 gram Take 1 g by mouth. 2 caps in the AM and 2 caps in the PM levothyroxine (SYNTHROID) 50 mcg tablet TAKE 2 TABLETS DAILY 180 tablet 4 rosuvastatin (CRESTOR) 20 mg tablet TAKE ONE AND ONE-HALF TABLETS ONCE DAILY 135 tablet 2 ibuprofen (MOTRIN) 800 mg tablet Take 800 mg by mouth every 6 hours as needed. cyclobenzaprine (FLEXERIL) 10 mg tablet Take 10 mg by mouth three times daily as needed. PROAIR HFA 90 mcg/actuation inhaler Inhale 2 Puffs as instructed as needed. ADVAIR HFA 115-21 mcg/actuation inhaler Inhale 4 Puffs as instructed once daily. MUCINEX 600 mg 12 hr tablet Take 2 tablets by mouth once daily as needed. 0 Subcutaneous Insulin Pump (ACCU-CHEK SPIRIT INSULIN PUMP) misc Basal rates: 24:00 --1.6units/hr; 0300:-2.3units/hr;06:00-1.8;11:00-1.8;12:00-2.0;16:00-2.2;19:00-2.7;21:00-2.4 ;22:00-1.6. Bolus: 2 unit/6 Gms CHO each meal; correction : 1 unit every 25 mg > 125 mg/dl. Eva hein. hrd: tmp bas at 80% 1 Each 0 lisinopril (ZESTRIL) 2.5 mg tablet Take 4 tablets by mouth once daily. (Patient taking differently: Take 2.5 mg by mouth once daily. ) 90 tablet 3 aspirin, enteric coated (ECOTRIN LOW STRENGTH) 81 mg ORAL EC tablet Take 1 tablet by mouth once daily. 0 fluoxetine hcl(PROZAC 20 MG CAP) 3 tabs daily 0 0 ONE TOUCH ULTRA TEST STRIPS chekc 6-8 timea a day(insulin pump) (Patient not taking: No sig reported) 700 3 ONE TOUCH FINE POINT LANCET uses 6-8 a day (Patient not taking: uses 6-8 a day) 700 3 CENTRUM ECHINACEA CAPSULE 100MG PO 0 No current facility-administered medications for this visit. 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 Discussed potential side effects. In reserve: hydroxychloroquine vs pentoxyfylline vs NBUVB Patient requesting injections of lesions on lower legs today, defer treating arms as well as patient has upcoming injection for shoulder and should limit total dose of steroids ILK procedure -discussed side effects including pain, bleeding, thinning and discoloration of skin -verbal consent obtained -injected 5 affected areas with 1mL total of 10 mg/mL of triamcinolone, tolerated well Return in 4 weeks. The documentation for this note was completed by Kerline Rodriguez MA acting as scribe for Blanca Martinez MD. I agree with the Chief Complaint, ROS, and Past Histories independently gathered by the clinical system support technician and the remaining scribed note accurately describes my personal service to the patient. Blanca Martinez MD Allergies As of Date: 05/18/2024 Noted Allergy Reaction HUMIRA (ADALIMUMAB) 08/20/2017 8 - GI Upset METHOTREXATE 05/21/2019 16 - Unknown RED DYE 07/04/2002 16 - Unknown Date Reviewed: 03/24/2024 Reviewed by: Иван Hanley LPN - Fully Assessed Reason for Visit: LESION, SKIN [936] Primary Visit Diagnosis:Granuloma annulare [L92.0] Order(s):triamcinolone acetonide 40 mg injection (KeNALog 10)Disp: Rfl: Prescriptions as of 05/18/2024 - famotidine (PEPCID) 20 mg tablet Take 1 tablet by mouth two times a day. - rifAMPin (RIFADIN) 300 mg capsule Take 2 pills once monthly - ofloxacin (FLOXIN) 400 mg tablet Take 1 pill once monthly - Minocycline HCl 100 mg tablet Take 1 pill once monthly - triamcinolone acetonide (KENALOG) 0.1 % cream Apply 1 application to affected area two times a day. (No more than 21 days per month) - HUMALOG U-100 INSULIN 100 unit/mL injection INJECT 90 UNITS DAILY VIA INSULIN PUMP - fluticasone (FLONASE) 50 mcg/actuation nasal spray Use in the nose. - icosapent ethyl (VASCEPA) 1 gram Take 1 g by mouth. 2 caps in the AM and 2 caps in the PM - levothyroxine (SYNTHROID) 50 mcg tablet TAKE 2 TABLETS DAILY - rosuvastatin (CRESTOR) 20 mg tablet TAKE ONE AND ONE-HALF TABLETS ONCE DAILY - ibuprofen (MOTRIN) 800 mg tablet Take 800 mg by mouth every 6 hours as needed. - cyclobenzaprine (FLEXERIL) 10 mg tablet Take 10 mg by mouth three times daily as needed. - PROAIR HFA 90 mcg/actuation inhaler Inhale 2 Puffs as instructed as needed. - ADVAIR HFA 115-21 mcg/actuation inhaler Inhale 4 Puffs as instructed once daily. - MUCINEX 600 mg 12 hr tablet Take 2 tablets by mouth once daily as needed. - Subcutaneous Insulin Pump (ACCU-CHEK SPIRIT INSULIN PUMP) misc Basal rates: 24:00 --1.6units/hr; 0300:-2.3units/hr;06:00-1.8;11:00-1.8;12:00-2.0;16:00-2.2;19:00-2.7;21:00-2.4 ;22:00-1.6. Bolus: 2 unit/6 Gms CHO each meal; correction : 1 unit every 25 mg > 125 mg/dl. Eva hein. hrd: tmp bas at 80% - lisinopril (ZESTRIL) 2.5 mg tablet Take 4 tablets by mouth once daily. - aspirin, enteric coated (ECOTRIN LOW STRENGTH) 81 mg ORAL EC tablet Take 1 tablet by mouth once daily. - fluoxetine hcl(PROZAC 20 MG CAP) 3 tabs daily - ONE TOUCH ULTRA TEST STRIPS chekc 6-8 timea a day(insulin pump) - ONE TOUCH FINE POINT LANCET uses 6-8 a day - CENTRUM ECHINACEA CAPSULE 100MG PO Facility-Administered Medications as of 05/18/2024 - triamcinolone acetonide 40 mg injection (KeNALog 10) Problem List As Of Date 05/18/2024 Noted Resolved DIABETES UNCOMPL OLGA-UNCONTRLLED [[id number]] 07/20/2002 MIXED HYPERLIPIDEMIA [E78.2] 06/12/2004 HYPOPOTASSEMIA [E87.6] 06/12/2004 ED. [N52.9] 07/22/2005 Peyronie's. [N48.89] 08/08/2005 ABNORMAL THYROID FUNCT STUDY (neg MCAB) [R94.6] 02/03/2006 11/27/2018 acquired hypothyroidism [E03.8] 03/05/2011 11/27/2018 Diabetes mellitus type 1, uncontrolled, without*02/13/2016 11/27/2018 Adult onset hypothyroidism [E03.8] 02/13/2016 11/27/2018 Background diabetic retinopathy (HCC) [E11.3299]02/13/2016 Prescriptions ordered this encounter Disp Refills Start End TRIAMCINOLONE ACETONIDE 10 MG/ML BHARATI* 05/18/2024 09/15/2024 Route: INTRALESIONA Disposition: Return in about 4 weeks (around 06/15/2024) for Follow up. Follow-up and Disposition History for Encounter Date Provider Department Center 05/18/2024 [id number], KATHRYN [facility] Encounter Status:Closed by BLANCA MARTINEZ on 05/18/24 PROGRESS Observed: 05/18/2024 9:34 AM Status: COMPLETED Source: [facility] ID: [id number] Author: BLANCA MARTINEZ MD Service: ? Author Type: Physician Type: Progress Notes Filed: 05/18/2024 13:06 Note Text: CC: Patient presents with: LESION, SKIN HPI: 58 year old male patient here for: Granuloma annulare Began ONCE monthly rifampin 600 mg, oflaxacin 400 mg and minocycline 100 mg, has completed 3 monthly doses of each Notes some improvement on arms, no improvement on backs of arms or on legs Tolerating meds without SE ILK at last visit - requesting today though does have shoulder injection coming up Unsure if the ILK helped Relates that he previously has taken Humira for this condition, ended up in hospital d/t allergic reaction twice FINAL DIAGNOSIS A. Skin, right upper arm, punch biopsy: - Granuloma anulare (see comment). Derm History: Denies personal history of skin cancer Allergies: ALLERGIES Allergen Reactions Humira [Adalimumab] GI Upset Methotrexate Unknown Red Dye Unknown Medications: Current Outpatient Medications Medication Sig Dispense Refill famotidine (PEPCID) 20 mg tablet Take 1 tablet by mouth two times a day. 180 tablet 3 rifAMPin (RIFADIN) 300 mg capsule Take 2 pills once monthly 16 capsule 0 ofloxacin (FLOXIN) 400 mg tablet Take 1 pill once monthly 8 tablet 0 Minocycline HCl 100 mg tablet Take 1 pill once monthly 8 tablet 0 triamcinolone acetonide (KENALOG) 0.1 % cream Apply 1 application to affected area two times a day. (No more than 21 days per month) 453.6 g 3 HUMALOG U-100 INSULIN 100 unit/mL injection INJECT 90 UNITS DAILY VIA INSULIN PUMP 100 mL 3 fluticasone (FLONASE) 50 mcg/actuation nasal spray Use in the nose. icosapent ethyl (VASCEPA) 1 gram Take 1 g by mouth. 2 caps in the AM and 2 caps in the PM levothyroxine (SYNTHROID) 50 mcg tablet TAKE 2 TABLETS DAILY 180 tablet 4 rosuvastatin (CRESTOR) 20 mg tablet TAKE ONE AND ONE-HALF TABLETS ONCE DAILY 135 tablet 2 ibuprofen (MOTRIN) 800 mg tablet Take 800 mg by mouth every 6 hours as needed. cyclobenzaprine (FLEXERIL) 10 mg tablet Take 10 mg by mouth three times daily as needed. PROAIR HFA 90 mcg/actuation inhaler Inhale 2 Puffs as instructed as needed. ADVAIR HFA 115-21 mcg/actuation inhaler Inhale 4 Puffs as instructed once daily. MUCINEX 600 mg 12 hr tablet Take 2 tablets by mouth once daily as needed. 0 Subcutaneous Insulin Pump (ACCU-CHEK SPIRIT INSULIN PUMP) misc Basal rates: 24:00 --1.6units/hr; 0300:-2.3units/hr;06:00-1.8;11:00-1.8;12:00-2.0;16:00-2.2;19:00-2.7;21:00-2.4 ;22:00-1.6. Bolus: 2 unit/6 Gms CHO each meal; correction : 1 unit every 25 mg > 125 mg/dl. Sangeethan alfredok. hrd: tmp bas at 80% 1 Each 0 lisinopril (ZESTRIL) 2.5 mg tablet Take 4 tablets by mouth once daily. (Patient taking differently: Take 2.5 mg by mouth once daily. ) 90 tablet 3 aspirin, enteric coated (ECOTRIN LOW STRENGTH) 81 mg ORAL EC tablet Take 1 tablet by mouth once daily. 0 fluoxetine hcl(PROZAC 20 MG CAP) 3 tabs daily 0 0 ONE TOUCH ULTRA TEST STRIPS chekc 6-8 timea a day(insulin pump) (Patient not taking: No sig reported) 700 3 ONE TOUCH FINE POINT LANCET uses 6-8 a day (Patient not taking: uses 6-8 a day) 700 3 CENTRUM ECHINACEA CAPSULE 100MG PO 0 No current facility-administered medications for this visit. 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 Discussed potential side effects. In reserve: hydroxychloroquine vs pentoxyfylline vs NBUVB Patient requesting injections of lesions on lower legs today, defer treating arms as well as patient has upcoming injection for shoulder and should limit total dose of steroids ILK procedure -discussed side effects including pain, bleeding, thinning and discoloration of skin -verbal consent obtained -injected 5 affected areas with 1mL total of 10 mg/mL of triamcinolone, tolerated well Return in 4 weeks. The documentation for this note was completed by Kerline Rodriguez MA acting as scribe for Blanca Martinez MD. I agree with the Chief Complaint, ROS, and Past Histories independently gathered by the clinical system support technician and the remaining scribed note accurately describes my personal service to the patient. Blanca Martinez MD MR KNEE LEFT WO IV CONTRAST Observed: 3:29 PM Status: F Source: [facility] EPIC Exam: MR KNEE LEFT WO IV CON TRAST History: Abnormal x-ray. Soft tissue swelling. Mass. Technique: Multiplanar multisequence MRI of the knee was performed without contrast. Comparison: Radiographs April 29, 2024 Findings: Quadriceps tendon is intact. Mild distal patellar tendinosis. Small joint effusion. A few Tiny foci of susceptibility artifact identified along the medial and lateral joint line, likely secondary to foreign bodies or postsurgical changes. There is nonspecific prepatellar/inferior lower subcutaneous soft tissue edema without distinct mass or fluid collection. No prepatellar bursal effusion. Anterior and posterior cruciate ligaments are intact. The medial collateral ligament, lateral collateral ligament, and popliteus are intact. Horizontal tear of the body through posterior horn of the medial meniscus. Edema within the medial tibial plateau subjacent to the body of the medial meniscus is likely reactive. Partial-thickness cartilage loss of the medial compartment without well-defined or measurable cartilage defect. Partial-thickness cartilage fissure of the median patellar ridge. Popliteal fossa structures are intact. No Rodas cyst. IMPRESSION: Mild distal patellar tendinosis. Nonspecific prepatellar/infrapatellar subcutaneous soft tissue edema without distinct soft tissue mass or fluid collection. Horizontal tear of the body through posterior horn of the medial meniscus. Mild osteoarthritis. ELECTRONICALLY SIGNED BY: Tony Lin DO MR LUMBAR SPINE WO CONTRAST Observed: 3:21 PM Status: F Source: [facility] EPIC EXAM: MR LUMBAR SPINE WO CON TRAST History: Low back pain with radiculopathy. Technique: Multiplanar multisequence MRI of the lumbar spine was obtained without intravenous contrast. Comparison: None available Findings: The conus medullaris ends normally. The alignment of the lumbar spine is anatomic. The vertebral body heights are well maintained. There is a hyperintense T2/hypointense T1 lesion within the vertebral body of T12 that is incompletely visualized. There is a 1.5 cm hyperintense T2/hypointense T1 lesion within the vertebral body of L1. There is a hyperintense T2/hypointense T1 lesion within the vertebral body of L2 measuring approximately 1.4 cm. A hyperintense T2/hypointense T1 lesion within the vertebral body of L4 extends into the right pedicle and right transverse process and measures approximately 3.8 cm. Disc desiccation at L4-L5 and L5-S1. Intervertebral disc heights are maintained. L1-L2: No significant disc bulge or high-grade spinal canal or neuroforaminal stenosis. L2-L3: No significant disc bulge or high-grade spinal canal or neuroforaminal stenosis. L3-L4: No significant disc bulge or high-grade spinal canal or neuroforaminal stenosis. L4-L5: Small disc bulge eccentric to the right. Mild right facet arthropathy. Mild left and moderate right neural foraminal stenosis. Mild spinal canal stenosis. L5-S1: Small disc bulge eccentric to the left. Mild facet arthropathy. Mild right and severe left neuroforaminal stenosis. Visualized paravertebral soft tissues appear within normal limits. IMPRESSION: Lesions of T12, L1, L2, and L4 as detailed are nonspecific and may represent atypical intraosseous hemangiomas but are concerning for malignancy given their signal characteristics. MRI of the lumbar spine with contrast is recommended to further evaluate. Degenerative changes of the lumbar spine as detailed. ELECTRONICALLY SIGNED BY: Tony Lin DO XR TIBIA FIBULA 2 VIEWS LEFT Observed: 0 04/29/2024 11:09 AM Status: F Source: [facility] EPIC EXAM: XR Left Tib/Fib, Two V iews (four images). REASON FOR EXAM: Left leg pain COMPARISON: None FINDINGS: Four images. Bony cortices, joint spaces and alignment are maintained. There is a linear 7.2 mm radiopaque foreign body in the lateral joint line at the expected location of the anterior, lateral collateral ligament. There is also soft tissue prominence of the lower patellar tendon region with soft tissue fullness. Areas of periosteal reaction and incidental soft tissue calcifications noted. No soft tissue gas radiographically. IMPRESSION: 1. Linear radiopaque foreign body over the expected location of the lateral collateral ligament. The differential includes traumatic foreign body, postoperative change age-indeterminate. Correlate clinically. 2. Thickening of the soft tissues at the level of the patellar tendon insertion on the tibia. The differential includes soft tissue mass, tendinopathy, tear, fluid collection. Consider CT or MRI. *This report is generated using voice recognition reporting (CinnaBid). On occasion [employer] erroneously drops words from the report or replaces the spoken word with similar sounding words. Please call with any questions/concerns regarding this report.* Dictated and transcribed 04/29/24/dpd This report has been electronically signed and approved by the interpreting radiologist. Electronically Signed Damien Shields II, M.D. 2024-04-29 13:06:37 ALLERGIES DATE TYPE / CODE NAME / CODE REACTION SEVERITY SOURCE 04/17/2023 Drug Allergy/4160 93649(SNOMED CT) methotrexate/H107901 644(RXNORM) Unknown Reaction Unknown [facility] 04/17/2023 Drug Allergy/4160 56950(SNOMED CT) adalimumab/H21090983 1(RXNORM) Chest Pain Unknown [facility] 04/17/2023 Drug Allergy/4160 09989(SNOMED CT) red dye/B239057917(RXNOR M) Swelling of the Eye Unknown [facility] 04/16/2022 Drug Allergy/4160 40223(SNOMED CT) sulfamethoxazole/F00 1074352(RXNORM) Unknown Reaction Unknown [facility] 04/16/2022 Drug Allergy/4160 95440(SNOMED CT) trimethoprim/V345269 873(RXNORM) Unknown Reaction Unknown [facility] 05/21/2019 DRUG INGREDI/4195 55838(SNOMED CT) METHOTREXATE UNKNOWN [facility] 08/20/2017 DRUG INGREDI/4195 47124(SNOMED CT) ADALIMUMAB GI UPSET [facility] 07/04/2002 DRUG INGREDI/4195 27641(SNOMED CT) RED DYE UNKNOWN [facility] /828295951 (SNOMED CT) Red Dye Swelling [facility] /039201855 (SNOMED CT) Bactrim Unknown [facility] /955403787 (SNOMED CT) Humira 30004 [facility] ENCOUNTERS ADMIT/DISCHARGE ACCOUNT NUMBER ADMITTING ENCOUNTER CLASS LOCATION SOURCE 03/16/2025/ 025 [id number] Ambulatory [facility] Hospital[facility] g:LOPT [facility] 03/09/2025/ 025 [id number] Ambulatory [facility] HospitalBuild[facility] g:LOPT [facility] 03/01/2025/ 025 [id number] Ambulatory [facility] HospitalBuildin g:LOPT [facility] 03/01/2025/04/29 025 [id number] [facility]ulatory [facility] 02/14/2025/ 025 [id number] Ambulatory Building:NOMS [facility] 02/03/2025/ 025 [id number] Ambulatory [facility] HospitalBuildin g:AVSS [facility] 01/12/2025/ 025 [id number] MALIHA BERG [facility]LUORRoom: POOLBed: [address] [place] [address] 01/05/2025/ 025 [id number] Ambulatory [facility] HospitalBuildin g:GRCT [facility] 12/30/2024/ 025 [id number] Ambulatory [facility] HospitalBuildin g:LBSH [facility] 12/30/2024/ 025 [id number] Ambulatory [facility] HospitalBuildin g:SHPA [facility] 12/23/2024/ 025 [id number] [facility] 12/08/2024/ 025 [id number] Ambulatory Building:[facility] EPIC 12/08/2024/ 025 [id number] Ambulatory Building:[facility] EPIC 12/07/2024/ 025 [id number] [facility]ENAL [facility] 09/28/2024/ 024 [id number] MIGDALIA UREÑA [facility]EN[facility]: AVENBed: 07 [facility] 09/03/2024/ 024 [id number] Ambulatory Building:NOMW [facility] EPIC 09/03/2024/ 024 [id number] Ambulatory Building:NOMS [facility] EPIC 08/24/2024/ 024 [id number] [facility] 08/20/2024/ 024 [id number] [facility] 08/17/2024/ 024 [id number] [facility] 08/11/2024/ 024 [id number] Ambulatory Building:[facility] EPIC 07/08/2024/ 024 [id number] [facility]LNEC [facility] 06/29/2024/ 024 [id number] Ambulatory Building:[facility] EPIC 06/29/2024/ 024 [id number] MIGDALIA UREÑA [facility]AVENRoom: AVENBed: 04 [facility] 06/25/2024/ 024 [id number] Darryn Araya [facility] 06/14/2024/ 024 [id number] Ambulatory Building:NOMS [facility] EPIC 06/09/2024/ 024 [id number] Ambulatory Building:[facility] EPIC 06/07/2024/ 024 [id number] [facility]/02/[facility]/ 024 [id number] [facility] 05/24/2024/ 024 [id number] Ambulatory Building:[facility] EPIC 05/24/2024/ 024 [id number] [facility] 05/18/2024/ 024 [id number] [facility]AMDE [facility] 05/17/2024/ 024 [id number] Ambulatory Building:[facility] EPIC 05/07/2024/ 024 [id number] [facility] 05/07/2024/ 024 [id number] [facility] 04/29/2024/ 024 [id number] Ambulatory Building:NOMW [facility] 04/29/2024/ 024 [id number] Ambulatory Building:[facility] PAYERS ENCOUNTER GUARANTOR PAYER SUBSCRIBER SOURCE 03/16/2025 Primary Insurance:MMO SUPERMED PPOPolicy Number: [id number] e Date:7206-47-60Cydd Name:Raina Bhatti JANNET: [id number] [place] 03/09/2025 Primary Insurance:MMO SUPERMED PPOPolicy Number: [id number] e Date:5057-86-84Iaqn Name:Raina Bhatti JANNET: [id number] DON [address] 03/01/2025 Primary Insurance:MMO SUPERMED PPOPolicy Number: [id number] e Date:1351-21-57Mpzo Name:Raina Bhatti JANNET: [id number] [place] [id number] [facility] 03/01/2025 JACQUIE Bhatti JANNET: DON () Primary Insurance:MEDICAL MUTUALPolicy Number: [id number] e Date:8576-97-39[address] [address]HW: JACQUIE KILPATRICK [facility] 02/14/2025 JACQUIE CORTESB: [place] [address]Nve: (HP) (WP) Primary Insurance:MEDICAL MUTUALPolicy Number: [id number] e Date:2014-11-03 JACQUIE CORTESB: [id number] [place] [address] [facility] 02/03/2025 Primary Insurance:MMO SUPERMED PPOPolicy Number: [id number] e Date:4828-75-81Szei Name:Raina CORTESB: [id number] DON [place], [address] 01/12/2025 Primary Insurance:MMO SUPERMED PPOPolicy Number: [id number] e Date:3372-77-89Hgzu Name:Raina CORTESB: [id number] DON [place], [address] 01/05/2025 Primary Insurance:MMO SUPERMED PPOPolicy Number: [id number] e Date:5249-98-40Zbjk Name:Raina CORTESB: [id number] DON [place], [facility]11 [facility] 12/30/2024 Primary Insurance:MMO SUPERMED PPOPolicy Number: [id number] e Date:4633-87-40Ucvf Name:Raina CORTESB: [id number] DON SAH[place], [facility]11 [facility] 12/30/2024 Primary Insurance:MMO SUPERMED PPOPolicy Number: [id number] e Date:1217-99-88Doij Name:Raina CORTESB: [id number] DON [place], [address] 12/23/2024 Primary Insurance:MMO SUPERMED PPOPolicy Number: [id number] e Date:0280-11-15Yhpy Name:Raina CORTESB: [id number] [place] [address] [facility] 12/08/2024 JACQUIE LANTIGUADOB: [place] [address]Exz: (HP) (WP) Primary Insurance:MEDICAL MUTUALPolicy Number: [id number] e Date:2014-11-03 JACQUIE LANTIGUADOB: [id number] DON [place], [facility] [facility] 12/08/2024 JACQUIE LANTIGUADOB: DON GREGORVERON[place], [facility]Tkj: (HP) (WP) Primary Insurance:MEDICAL MUTUALPolicy Number: [id number] e Date:2014-11-03 JACQUIE LNATIGUADOB: [id number] DON [place], [facility] [facility] 12/07/2024 Primary Insurance:MMO SUPERMED PPOPolicy Number: [id number] e Date:7900-81-85Fily Name:Raina CORTESB: [id number] DON BUNDYVERONICA, [facility]11 [facility] 09/28/2024 Primary Insurance:MMO SUPERMED PPOPolicy Number: [id number] e Date:0940-40-41Eioc Name:Raina CORTESB: [id number] [place] [address] [facility] 09/03/2024 JACQUIE LANTIGUADOB: DON BUNDYVERONICA, [facility]Syg: (HP) (WP) Primary Insurance:MEDICAL MUTUALPolicy Number: [id number] e Date:2014-11-03 JACQUIE LANTIGUADOB: [id number] [place] [address] [facility] 09/03/2024 JACQUIE LANTIGUADOB: DON [place], [facility]Mcy: (HP) (WP) Primary Insurance:MEDICAL MUTUALPolicy Number: [id number] e Date:2014-11-03 JACQUIE LANTIGUADOB: [id number] DON [place], [facility] [facility] 08/24/2024 JACQUIE LANTIGUADOB: DON [place], [facility]Hhe: (HP) (WP) Primary Insurance:MEDICAL MUTUALPolicy Number: [id number] e Date:2014-11-03 JACQUIE LANTIGUADOB: [id number] DON [place], [facility] [facility] 08/20/2024 Primary Insurance:[facility] PPOPolicy Number: [id number] e Date:7272-37-37Bphk Name:Raina CORTESB: [id number] DON [place], [facility]11 [facility] 08/17/2024 JACQUIE CORTESB: DON [place], [facility]Fsi: (HP) (WP) Primary Insurance:MEDICAL MUTUALPolicy Number: [id number] e Date:2014-11-03 JACQUIE CORTESB: [id number] DON [place], [facility] [facility] 08/11/2024 JACQUIE LANTIGUADOB: DON [place], [facility]Sth: (HP) (WP) Primary Insurance:MEDICAL MUTUALPolicy Number: [id number] e Date:2014-11-03 JACQUIE CORTESB: [id number] [place] [address] [facility] 07/08/2024 Primary Insurance:MMO SUPERMED PPOPolicy Number: [id number] e Date:3431-42-03Epfn Name:Raina CORTESB: [id number] [place] [address] [facility] 06/29/2024 JACQUIE CORTESB: [place] [address]Puz: (HP) (WP) Primary Insurance:MEDICAL MUTUALPolicy Number: [id number] e Date:2014-11-03 JACQUIE CORTESB: [id number] DON [place], [facility] [facility] 06/29/2024 Primary Insurance:MMO SUPERMED PPOPolicy Number: [id number] e Date:5118-58-92Dtoa Name:Raina POWER: [id number] [place] [address] [facility] 06/25/2024 [place]ie [place] [id number]: (HP) Primary Insurance:MMOPolicy Number: [id number] e Date:8161-75-20[id number] [place] [address]MB: Jacquie CortesB: [id number] [place] [address]Dwq: (HP) [facility] 06/25/2024 Secondary Insurance:Self PayPolicy Number: Effective Date:2024-06-24 [facility]24 JACQUIE LANTIGUAB: [place] [address]Qiw: (HP) (WP) Primary Insurance:MEDICAL MUTUALPolicy Number: [id number] e Date:2014-11-03 JACQUIE LANTIGUADOB: [id number] [place] [address] [facility] EP[facility] 06/09/2024 JACQUIE LANTIGUADOB: DON [place], [facility]Ufb: (HP) (WP) Primary Insurance:MEDICAL MUTUALPolicy Number: [id number] e Date:2014-11-03 JACQUIE LANTIGUADOB: [id number] DON [place], [facility] [facility] 06/07/2024 Primary Insurance:[facility] PPOPolicy Number: [id number] e Date:1078-37-93Kxyj Name:Raina CORTESB: [id number] [place] [address] [facility] 06/02/2024 JACQUIE CORTESB: DON [place], [facility]Ctu: (HP) (WP) Primary Insurance:MEDICAL MUTUALPolicy Number: [id number] e Date:2014-11-03 JACQUIE CORTESB: [id number] DON [place], [facility] [facility] 05/24/2024 JACQUIE CORTESB: [place] [address]Rdy: (HP) (WP) Primary Insurance:MEDICAL MUTUALPolicy Number: [id number] e Date:2014-11-03 JACQUIE CORTESB: [id number] DON CEBALLOSGILLVERON[place], [facility] [facility] 05/24/2024 JACQUIE LANTIGUADOB: [place] [address]Kgd: (HP) (WP) Primary Insurance:MEDICAL MUTUALPolicy Number: [id number] e Date:2014-11-03 JACQUIE LANTIGUADOB: [id number] DON CE[place]ALLOSGILLVER[place], [facility] [facility] Specialists [facility] 05/18/2024 Primary Insurance:[facility] PPOPolicy Number: [id number] e Date:[id number] Name:Raina CORTESB: [id number] [place] [address] [facility] 05/17/2024 JACQUIE LANTIGUADOB: [place], [facility]Qyf: (HP) (WP) Primary Insurance:MEDICAL MUTUALPolicy Number: [id number] e Date:2014-11-03 JACQUIE LANTIGUAB: [id number] [place], [facility] [facility]ists [facility] 05/07/2024 JACQUIE LANTIGUADOB: [place], [facility]Hkc: (HP) (WP) Primary Insurance:MEDICAL MUTUALPolicy Number: [id number] e Date:2014-11-03 JACQUIE LANTIGUADOB: [id number] [place] [address] [facility]ists [facility] 05/07/2024 JACQUIE LANTIGUADOB: [place], [facility]Gqb: (HP) (WP) Primary Insurance:MEDICAL MUTUALPolicy Number: [id number] e Date:2014-11-03 JACQUIE LANTIGUAB: [id number] [place] [address] [facility] 04/29/2024 JACQUIE Bhatti SOPHIAB: [place] [address]Mhq: (HP) (WP) Primary Insurance:MEDICAL MUTUALPolicy Number: [id number] e Date:2014-11-03 JACQUIE Bhatti SOPHIAB: [id number] [place] [address] [facility]ists [facility] 04/29/2024 JACQUIE Bhatti SOPHIAB: [place] [address]Yev: (HP) (WP) Primary Insurance:MEDICAL MUTUALPolicy Number: [id number] e Date:2014-11-03 JACQUIE Bhatti SOPHIAB: [id number] [place] [address] [facility] Medical [facility] EPIC
--- OUTSIDE RECORDS SUMMARY | 2025-03-16 17:00 | XMS_ITS | Encounter Summary ---
Author Organization [facility] Address [facility] [place] [id number] Care Team Providers Care Sharebroker Name Role Phone Quiana Mckeon DO, George Robert Primary Care Provi clemente Source Comments In the event this information is protected by the Federal Confidentiality of Alcohol and Drug AbusePatient Records regulations: The Federal rules restrict any use of the information to criminally investigate or prosecute any alcohol or drug abuse patient.[facility] Reason for Visit * Reason Comments Physical Therapy * Physical Therapy/Occupational Therapy (Routine) - Authorized Specialty Diagnoses / Procedures Referred By Contkal t Referred To Contact [facility] Diagnoses Chronic bilateral low back pain with left-sided sciatica Procedures CONSULT TO PHYSICAL THERAPY PHYSICAL THERAPY EVALUATION HIGH COMPLEX [address] [place] [address] [place] [address] Phone: tel: fax: [facility] [address] [place] [address] Referral ID Status Reason Start Date Expiration Date Visits Requested Visits Authorized [id number] Authorized Auto-Generat ed Referral 11/03/2024 11/02/2025 40 40 Encounter Details Date Type Department Care Team (Latest Contact Info) Description 03/16/2025 5:00 PM EDT OT/PT/Speech Visit [facility] [address] [place] [phone] Damien Velez, CRISTAL [address] [place] [phone] Chronic midline low back pain without sciatica (Primary Dx); Chronic bilateral low back pain with left-sided sciatica Social History Tobacco Use Types Packs/Day Years Used Date Smoking Tobacco: Former Cigarettes Smokeless Tobacco: Never Comments:1 ppd x 20 years fo rmer smoker Alcohol Use Standard Drinks/Week Comments Yes 5 (1 standard drink = 0.6 oz pur e alcohol) PHQ-2 Answer Date Recorded PHQ-2 score 2 02/02/2025 Area Deprivation Index Answer Date Masoud rded National Score (1-100), lower number is lower ri sk 86 06/17/2023 State Score (1-10), lower number is lower risk 8 06/17/2023 Data from: https://www.neighborhoodatlas.medicine.[facility]/. Last address used for calculation [address] [facility] [facility] 06/17/2023 Sex and Gender Information Value Date Recorded Sex Assigned at Not on file Legal Sex Male 9:42 AM EST Gender Identity Not on file Sexual Orientation Not on file documented as of this encounter Functional Status * Are you deaf or do you have serious difficulty hearing? Answer Date of Assessment Author No 02/28/2015 7:24 PM Yoselyn Rivero LPN * Are you blind or do you have serious difficulty seeing, even when wearing glasses? Answer Date of Assessment Author No 02/28/2015 7:24 PM Yoselyn Rivero LPN * Do you have serious difficulty walking or climbing stairs? Answer Date of Assessment Author No 02/28/2015 7:24 PM Yoselyn Rivero LPN * Do you have difficulty dressing or bathing? Answer Date of Assessment Author No 02/28/2015 7:24 PM Yoselyn Rivero LPN * Because of a physical, mental, or emotional condition, do you have difficulty doing errands alone such as visiting a doctor's office or shopping? Answer Date of Assessment Author No 02/28/2015 7:24 PM Yoselyn Rivero LPN documented as of this encounter Mental Status * Because of a physical, mental, or emotional condition, do you have serious difficulty concentrating, remembering, or making decisions? Answer Entry Date Author No 02/28/2015 7:24 PM Yoselyn Rivero LPN documented in this encounter Progress Notes * Damien Velez, FINDING FASTENER - 03/16/2025 4:50 PM EDT Episode Visit Count: 3 Therapist That Will Accept/Oversee The Plan Of Care: Chery Layton Start of Care Date: 03/01/25 Onset Date: 11/03/23 [facility] PHYSICAL THERAPY TREATMENT NOTE ASSESSMENT: Jareth Lantigua tolerated the session well overall. Patient progressing without increased pain or discomfort during core stability & stretching exercises. Patient able to verbalize HEP [...] 1653 Session Stop Time : 1738 Damien Velez PTA documented in this encounter Plan of Treatment Upcoming Encounters Date Type Department Care Team (Latest Contact Info) Description 04/11/2025 6:00 PM EDT OT/PT/Speech Visit [facility] [address] [place] [address] Chery Layton, PT [address] [place] [address] no copay Chronic bilateral low back pain with left-sided sciatica [G89.29, M54.42] 06/06/2025 3:00 PM EDT Office Visit [facility]ocr[facility] [address] [facility] [address] Glo Alan, JANIE.WELDING MACHINE OPERATOR PLASMA ARC [address] [place] [address] see WELDING MACHINE OPERATOR PLASMA ARC in [place] 6 months 08/11/2025 2:40 PM EDT Office Visit [facility] [place] [address] [place] [address] [place] [address] [place] [address] 6 MONTH FOLLOW UP 12/07/2025 3:40 PM EST Office Visit Endocrinology [address] [place] [address] Bernardino Villagomez DO [address] [place] [address] me in one year. documented as of this encounter Visit Diagnoses Diagnosis Chronic midline low back pain without sciatica- Primary Chronic bilateral low back pain with left-sided sciatica documented in this encounter Care Teams Sharebroker Relationship Specialty Start Date End Date Joseph Araya Jr., [address] [place] [address] PCP - General 10/12/07 documented as of this encounter
--- NOTE | 2025-03-25 | XR_ITS ---
The [address] [address] Patient Name: JACQUIE VILLAGRAN MRN: [id number] date: 1965 Sex: M Assigned Patient Location: RAD Current Patient Location: [facility] Accession/Order Number: [id number] Exam Date: 03/25/2025 16:56 Report Date: 03/25/2025 16:57 At the request of: NON-STAFF PHYSICIAN MD Procedure: XR hip LT 2V w/ pelvis 2 views left hip with single view pelvis HISTORY: Left hip pain Adequate alignment. No significant degeneration. No acute displaced fracture. Unremarkable soft tissues. XR/XR hip LT 2V w/ pelvis IMPRESSION: Unremarkable exam Impression dictated by: Alfie Morin M.D. 03/25/2025 4:57 PM Dictation Location: [place] [address] Electronically authenticated by: [id number] Y Date: 03/25/2025 16:57
--- OUTSIDE RECORDS SUMMARY | 2025-03-25 16:39 | XMS_ITS | Encounter Summary ---
Author Organization [facility] Address [address] [place] [address] Care Team Providers Care Plumbing Installer Name Role Phone Quiana Mckeon DO, George Robert Primary Care Provi clemente Source Comments In the event this information is protected by the Federal Confidentiality of Alcohol and Drug AbusePatient Records regulations: The Federal rules restrict any use of the information to criminally investigate or prosecute any alcohol or drug abuse patient.[facility] Encounter Details Date Type Department Care Team (Late st Contact Info) Description 03/26/2024 Telephone Neurology [address] [place], [place] [phone] Parul Rico, JANIE.TALENT SCOUT [address] [place] [phone] Social History Tobacco Use Types Packs/Day Years Used Date Smoking Tobacco: Never Smokeless Tobacco: Never Alcohol Use Standard Drinks/Week Comments Yes 0 (1 standard drink = 0.6 oz pur e alcohol) Area Deprivation Index Answer Date Masoud rded National Score (1-100), lower number is lower ri sk 86 06/17/2023 State Score (1-10), lower number is lower risk 8 06/17/2023 Data from: https://www.neighborhoodatlas.[facility]/. Last address used for calculation [address] 06/17/2023 Sex and Gender Information Value Date Recorded Sex Assigned at Not on file Legal Sex Male 9:42 AM EST Gender Identity Not on file Sexual Orientation Not on file documented as of this encounter Functional Status * Are you deaf or do you have serious difficulty hearing? Answer Date of Assessment Author No 02/28/2015 7:24 PM EDT Yoselyn Best LPN * Are you blind or do you have serious difficulty seeing, even when wearing glasses? Answer Date of Assessment Author No 02/28/2015 7:24 PM EDT Yoselyn Best LPN * Do you have serious difficulty walking or climbing stairs? Answer Date of Assessment Author No 02/28/2015 7:24 PM EDT Yoselyn Best LPN * Do you have difficulty dressing or bathing? Answer Date of Assessment Author No 02/28/2015 7:24 PM EDT Yoselyn Best LPN * Because of a physical, mental, or emotional condition, do you have difficulty doing errands alone such as visiting a doctor's office or shopping? Answer Date of Assessment Author No 02/28/2015 7:24 PM EDT Yoselyn Best LPN documented as of this encounter Mental Status * Because of a physical, mental, or emotional condition, do you have serious difficulty concentrating, remembering, or making decisions? Answer Entry Date Author No 02/28/2015 7:24 PM EDT Yoselyn Best LPN documented in this encounter Miscellaneous Notes * Telephone Encounter - Imer Yeung - 03/26/2024 1:58 PM EDT Faxed medical records to [facility] to obtain prior approval for MRI. documented in this encounter Plan of Treatment Upcoming Encounters Date Type Department Care Team (Latest Contact Info) Description 04/11/2025 6:00 PM EDT OT/PT/Speech Visit [facility] [address] [place] [address] Chery Layton, PT [address] [place] [address] no copay Chronic bilateral low back pain with left-sided sciatica [G89.29, M54.42] 06/06/2025 3:00 PM EDT Office Visit Endocrinology [address] [place] [address] Glo Alan APRN.TALENT SCOUT [address] [place] [address] see TALENT SCOUT in [place] 6 months 08/11/2025 2:40 PM EDT Office Visit [facility] [place] [address] [place] [address] [place] [address] [place] [address] 6 MONTH FOLLOW UP 12/07/2025 3:40 PM EST Office Visit Endocrinology [address] [place] [address] Bernardino Villagomez, DO [address] [place] [address] wi in one year. documented as of this encounter Visit Diagnoses Not on filedocumented in this encounter Care Teams Plumbing Installer Relationship Specialty Start Date End Date Joseph Araya Jr., DO [address] [facility] [place] [address] PCP - General 10/12/07 documented as of this encounter
--- OUTSIDE RECORDS SUMMARY | 2025-03-25 16:39 | XMS_ITS | Encounter Summary ---
Author Organization [facility] Address [address] [place] [address] Care Team Providers Care Poultry Farmworker Name Role Phone Quiana Mckeon DO, George Robert Primary Care Provi clemente Source Comments In the event this information is protected by the Federal Confidentiality of Alcohol and Drug AbusePatient Records regulations: The Federal rules restrict any use of the information to criminally investigate or prosecute any alcohol or drug abuse patient.[facility] Encounter Details Date Type Department Care Team ([facility] Contact Info) Description 10/31/2023 Patient Msg Family Medicine [address] [phone] Provider, Ccf Appointment cancelled Social History Tobacco Use Types Packs/Day Years Used Date Smoking Tobacco: Never Smokeless Tobacco: Never Alcohol Use Standard Drinks/Week Comments Yes 0 (1 standard drink = 0.6 oz pur e alcohol) Area Deprivation Index Answer Date Masoud rded National Score (1-100), lower number is lower ri sk 86 06/17/2023 State Score (1-10), lower number is lower risk 8 06/17/2023 Data from: https://www.neighborhoodatlas.medicine.[facility].edu/. Last address used for calculation [address] [place] [address] 06/17/2023 Sex and Gender Information Value Date [...] Assessment Author No 02/28/2015 7:24 PM EDT Patricia Best LPN * Because of a physical, [...] Yoselyn Best LPN documented in this encounter Plan of Treatment Upcoming Encounters Date Type Department Care Team (Latest Contact Info) Description 04/11/2025 6:00 PM EDT OT/PT/Speech Visit [facility] [address] [facility] [place] [address] Chery Layton, PT [address] [place] [address] no copay Chronic bilateral low back pain with left-sided sciatica [G89.29, M54.42] 06/06/2025 3:00 PM EDT Office Visit Endocrinology [address] [facility] [place] [address] Glo Alan, JANIE.DRYING UNIT FELTING MACHINE OPERATOR [address] [place] [place] [address] see DRYING UNIT FELTING MACHINE OPERATOR in [place] 6 months 08/11/2025 2:40 PM EDT Office Visit Spine [place] [address] [place] [address] [place] [address] [place] [address] 6 MONTH FOLLOW UP 12/07/2025 3:40 PM EST Office Visit Endocrinology [address] [place] [address] Bernardino Villagomez, DO [address] [place], [place] [phone] me in one year. documented as of this encounter Visit Diagnoses Not on filedocumented in this encounter Care Teams Poultry Farmworker Relationship Specialty Start Date End Date Joseph Araya Jr., DO [address] [place] [phone] PCP - General 10/12/07 documented as of this encounter
--- OUTSIDE RECORDS SUMMARY | 2025-03-25 16:39 | XMS_ITS | Encounter Summary ---
Author Organization [facility] Address [address] [place] [address] Care Team Providers Care Conduit Helper Name Role Phone Quiana Mckeon DO, George Robert Primary Care Provi clemente Source Comments In the event this information is protected by the Federal Confidentiality of Alcohol and Drug AbusePatient Records regulations: The Federal rules restrict any use of the information to criminally investigate or prosecute any alcohol or drug abuse patient.[facility] Encounter Details Date Type Department Care Team (Late st Contact Info) Description 06/18/2024 Patient [place] [address] Provider, Ccf Financial Clearance Social History Tobacco Use Types Packs/Day Years Used Date Smoking Tobacco: Never Smokeless Tobacco: Never Alcohol Use Standard Drinks/Week Comments Yes 0 (1 standard drink = 0.6 oz pur e alcohol) Area Deprivation Index Answer Date Masoud rded National Score (1-100), lower number is lower ri sk 86 06/17/2023 State Score (1-10), lower number is lower risk 8 06/17/2023 Data from: https://www.neighborhoodatlas.medicine.[facility].edu/. Last address used for calculation [address] [place] [address] 06/17/2023 Sex and Gender Information Value Date [...] Entry Date Author No 02/28/2015 7:24 PM EDYoselyn Reyes LPN documented in this encounter Plan of Treatment Upcoming Encounters Date Type Department Care Team (Latest Contact Info) Description 04/11/2025 6:00 PM EDT OT/PT/Speech Visit [facility] [address] [facility] [place] [phone] Chery Layton, PT [address] [address] [place] [address] no copay Chronic bilateral low back pain with left-sided sciatica [G89.29, M54.42] 06/06/2025 3:00 PM EDT Office Visit Endocrinology [address] [facility] [place] [address] Glo Alan, JANIE.DEVELOPMENT ANALYST [address] [facility] [address] [place], [place] [phone] see DEVELOPMENT ANALYST in [place] 6 months 08/11/2025 2:40 PM EDT Office Visit Spine [place] [address] [place] [address] [place] [address] [place] [address] 6 MONTH FOLLOW UP 12/07/2025 3:40 PM EST Office Visit Endocrinology [address] [facility] [place] [address] Bernardino Villagomez, [address] [place], [place] [phone] me in one year. documented as of this encounter Visit Diagnoses Not on filedocumented in this encounter Care Teams Conduit Helper Relationship Specialty Start Date End Date Joseph Araya Jr., DO [address] [facility] [place] [address] PCP - General 10/12/07 documented as of this encounter
--- OUTSIDE RECORDS SUMMARY | 2025-03-25 16:40 | XMS_ITS | Encounter Summary ---
Author Organization [facility] Address [address] [place] [address] Care Team Providers Care Cleaning Supervisor Name Role Phone Quiana Mckeon DO, George Robert Primary Care Provi clemente Source Comments In the event this information is protected by the Federal Confidentiality of Alcohol and Drug AbusePatient Records regulations: The Federal rules restrict any use of the information to criminally investigate or prosecute any alcohol or drug abuse patient.[facility] Encounter Details Date Type Department Care Team ([facility] st Contact Info) Description 07/01/2024 Patient [facility] -[address] [place] [address] Torrie Herman RPh At your next appointment, choose [facility]. Social History Tobacco Use Types Packs/Day Years Used Date Smoking Tobacco: Never Smokeless Tobacco: Never Alcohol Use Standard Drinks/Week Comments Yes 0 (1 standard drink = 0.6 oz pur e alcohol) Area Deprivation Index Answer Date Masoud rded National Score (1-100), lower number is lower ri sk 86 06/17/2023 State Score (1-10), lower number is lower risk 8 06/17/2023 Data from: https://www.neighborhoodatlas.medicine.[facility].edu/. Last address used for calculation [facility] [address] 06/17/2023 Sex and Gender Information [...] EDT OT/PT/Speech Visit [facility] [address] [facility] [place] [place] [address] Chery Layton, PT [address] [place] [place] [address] no copay Chronic bilateral low back pain with left-sided sciatica [G89.29, M54.42] 06/06/2025 3:00 PM EDT Office Visit Endocrinology [address] [facility] [place] [address] Glo Alan, PAIRER SUBSTANDARD.RN ER [address] [place] [address] see RN ER in [place] 6 months 08/11/2025 2:40 PM EDT Office Visit Spine [place] [address] [address] [place] [address] [place] [address] 6 MONTH FOLLOW UP 12/07/2025 3:40 PM EST Office Visit Endocrinology [address] [place] [address] Bernardino Villagomez, [address] [place] [address] me in one year. documented as of this encounter Visit Diagnoses Not on filedocumented in this encounter Care Teams Cleaning Supervisor Relationship Specialty Start Date End Date Joseph Araya Jr., DO [address] [facility] [place] [address] PCP - General 10/12/07 documented as of this encounter
--- OUTSIDE RECORDS SUMMARY | 2025-03-25 16:40 | XMS_ITS | Encounter Summary ---
Author Organization [facility] Address [address] [place] [address] Care Team Providers Care Venereal Disease Control Head Name Role Phone Quiana Mckeon DO, George Robert Primary Care Provi clemente Source Comments In the event this information is protected by the Federal Confidentiality of Alcohol and Drug AbusePatient Records regulations: The Federal rules restrict any use of the information to criminally investigate or prosecute any alcohol or drug abuse patient.[facility] Reason for Visit * Reason Onset Date Comments Refill Request 01/26/2025 Encounter Details Date Type Department Care Team (Late st Contact Info) Description 01/26/2025 Refill Neurosurgery [address] [place] [phone] [place] [address] [address] [place], [place] [phone] Refill Request Social History Tobacco Use Types Packs/Day Years [...] is lower risk 8 06/17/2023 Data from: https://www.neighborhoodatlas.[facility]/. Last address used for calculation [address] 06/17/2023 Sex and Gender Information Value Date [...] of Assessment Author No 02/28/2015 7:24 PM EDYoselyn Reyes LPN * Do you have difficulty dressing or bathing? Answer Date of Assessment Author No 02/28/2015 7:24 PM EDT Yoselyn Best LPN * Because of a physical, mental, or emotional condition, do you have difficulty doing errands alone such as visiting a doctor's office or shopping? Answer Date of Assessment Author No 02/28/2015 7:24 PM EDYoselyn Reyes LPN documented as of this encounter Mental Status * Because of a physical, mental, or emotional condition, do you have serious difficulty concentrating, remembering, or making decisions? Answer Entry Date Author No 02/28/2015 7:24 PM EDYoselyn Reyes LPN documented in this encounter Miscellaneous Notes * Telephone Encounter - Davidscottie Edith Levine - 01/26/2025 12:58 PM EDT Call from patient requesting refill. Requested Prescriptions Pending Prescriptions Disp Refills oxyCODONE-acetaminophen (PERCOCET) 5-325 mg tablet 28 tablet 0 Sig: Take 1 tablet by mouth every 6 hours as needed for pain for up to 7 days. Patient last seen 01-12-25 next appt: 02-03-25 Edith Levine documented in this encounter Plan of Treatment Upcoming Encounters Date Type Department Care Team (Latest Contact Info) Description 04/11/2025 6:00 PM EDT OT/PT/Speech Visit [facility] [address] [facility] [place] [place] [address] Chery Layton, PT [address] [facility] [address] [place] [address] no copay Chronic bilateral low back pain with left-sided sciatica [G89.29, M54.42] 06/06/2025 3:00 PM EDT Office Visit Endocrinology [address] [place] [address] Glo Alan APRN.CONTROLS DESIGNER [address] [facility] [address] [place] [address] see CONTROLS DESIGNER in [facility] 6 months 08/11/2025 2:40 PM EDT Office Visit [facility] [place] [address] [place] [address] [place] [address] [place] [address] 6 MONTH FOLLOW UP 12/07/2025 3:40 PM EST Office Visit Endocrinology [address] [place] [address] Bernardino Villagomez DO [address] [place] [address] me in one year. documented as of this encounter Visit Diagnoses Diagnosis Radiculopathy, lumbar region Thoracic or lumbosacral neuritis or radiculitis, unspecified documented in this encounter Care Teams Venereal Disease Control Head Relationship Specialty Start Date End Date Joseph Araya Jr., [address] [place] [phone] PCP - General 10/12/07 documented as of this encounter
--- OUTSIDE RECORDS SUMMARY | 2025-03-25 16:40 | XMS_ITS | Encounter Summary ---
Author Organization [facility] Address [address] [place] [address] Care Team Providers Care Morning Nanny Name Role Phone Quiana Mckeon DO, George Robert Primary Care Provi clemente Source Comments In the event this information is protected by the Federal Confidentiality of Alcohol and Drug AbusePatient Records regulations: The Federal rules restrict any use of the information to criminally investigate or prosecute any alcohol or drug abuse patient.[facility] Reason for Referral * Diagnostic Procedure Only (Routine) - New Request Specialty Diagnoses / Procedures Referred By Contac t Referred To Contact XR IMAGING Diagnoses Pain in left hip Procedures XR HIP GENERAL 3V PELV/AP/LAT LEFT RADEX HIP UNILATERAL WITH PELVIS 2-3 VIEWS Rosalee Duncan PA-C [address] [place] [address] Phone: tel: fax: [place] [id number] Referral ID Status Reason Start Date Expiration Date Visits Requested Visits Authorized [id number] New Request Auto-Generat ed Referral 03/23/2025 04/22/2026 1 1 Reason for Visit * Reason Comments Severe Pain Encounter Details Date Type Department Care Team (Late st Contact Info) Description 03/23/2025 Telephone Neurology [address] [place] [address] [place] [address] [place] [address] Severe Pain Social History Tobacco Use Types Packs/Day Years [...] is lower risk 8 06/17/2023 Data from: https://www.neighborhoodatlas.medicine.[facility]/. Last address used for calculation [address] [...] encounter Miscellaneous Notes * Telephone Encounter - Rosalee Duncan PA-C - 03/23/2025 3:51 PM EDT Call placed to patient at 3:50 PM. [...] to have them send imaging over to [facility] once completed and follow-up with Dr. Chacko's office. Will fax order to [facility]. Patient was appreciative of call. * Telephone Encounter - Alexandria Cook - 03/23/2025 3:22 PM EDT Patient called with complaints of left hip and leg pain. 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 Per patient, he is ok from 6:30 till about noon, then his left hip and legkeeps giving out and he can no longer walk. Please call patient to advise at [phone]. documented in this encounter Plan of Treatment Upcoming Encounters Date Type Department Care Team (Latest Contact Info) Description 04/11/2025 6:00 PM EDT OT/PT/Speech Visit [facility] [address] [facility] [place] [place] [address] Chery Layton, PT [address] [facility] [address] [place] [address] no copay Chronic bilateral low back pain with left-sided sciatica [G89.29, M54.42] 06/06/2025 3:00 PM EDT Office Visit Endocrinology 5700 [place] [address] Glo Alan APRN.PUBLICATIONS INSPECTOR [address] [facility] [address] [place] [address] see PUBLICATIONS INSPECTOR in [place] 6 months 08/11/2025 2:40 PM EDT Office Visit [facility] [place] [address] [facility] [place] [address] [place] [address] [place] [address] 6 MONTH FOLLOW UP 12/07/2025 3:40 PM EST Office Visit Endocrinology [address] [place] [address] Bernardino Villagomez, DO [address] [place] [address] me in one year. Scheduled Orders Name Type Priority Associated Diagnoses Orde r Schedule XR HIP GENERAL 3V PELV/AP/LAT LEFT Radiology Routine Pain in left hip 1 Occurrences starting 03/23/2025 until 04/22/2026 documented as of this encounter Visit Diagnoses Diagnosis Pain in left hip- Primary Pain in joint, pelvic region and thigh documented in this encounter Care Teams Morning Nanny Relationship Specialty Start Date End Date Joseph Araya Jr., DO [address] [place] [phone] PCP - General 10/12/07 documented as of this encounter
--- OUTSIDE RECORDS SUMMARY | 2025-03-25 16:40 | XMS_ITS | Encounter Summary ---
Author Organization [facility] Address [address] [place] [address] Care Team Providers Care Compound Specialist Name Role Phone Joseph Araya DO Primary Care Provider [phone] Joseph Araya DO Unavailable [phone] Encounter Details Date Type Department Care Team (Late st Contact Info) Description 03/31/2023 Abstract [facility] [address] [place] [address] Vidhya Cueto MD [address] [facility] [address] [place] [address] Social History Tobacco Use Types Packs/Day Years Used Date Smoking Tobacco: Former Cigarettes Q uit: 11/03/2018 Smokeless Tobacco: Never Alcohol Use Standard Drinks/Week Comments Yes 2 (1 standard drink = 0.6 oz pure alcohol) coffee: more than 4 cups per day; soda Sex and Gender Information Value Date Recorded Sex Assigned at Not on file Legal Sex Male 6:52 PM EDT Gender Identity Not on file Sexual Orientation Not on file COVID-19 Exposure Response Date Recorded In the last 10 days, have yo u been in contact with someone who was confirmed or suspected to have Coronavirus/COVID-19? No / Unsure 04/02/2023 3:40 PM EDT documented as of this encounter Plan of Treatment Not on file documented as of this encounter Visit Diagnoses Not on filedocumented in this encounter Care Teams Compound Specialist Relationship Specialty Start Date End Date Joseph Araya DO [address] [place] [address] PCP - General Family Medicine 04/02/23 Joseph Araya DO [address] [facility] [address] [place] [address] PCP - Medical [employer] 05/03/14 11/02/99 documented as of this encounter
--- OUTSIDE RECORDS SUMMARY | 2025-03-25 16:40 | XMS_ITS | Encounter Summary ---
Author Organization [facility] Address [address] [place] [address] Care Team Providers Care Audience Coordinator Name Role Phone Quiana Mckeon DO, George Robert Primary Care Provi clemente Source Comments In the event this information is protected by the Federal Confidentiality of Alcohol and Drug AbusePatient Records regulations: The Federal rules restrict any use of the information to criminally investigate or prosecute any alcohol or drug abuse patient.[facility] Encounter Details Date Type Department Care Team ([facility] st Contact Info) Description 12/29/2024 Patient Msg [facility] [place] [address] [place] [address] Provider, Ccf Important Reminder for Preparing Your Skin for Surgery Social History Tobacco Use Types Packs/Day Years Used Date Smoking Tobacco: Former Cigarettes Smokeless Tobacco: Never Alcohol Use Standard Drinks/Week Comments Yes 0 (1 standard drink = 0.6 oz pur e alcohol) Area Deprivation Index Answer Date Masoud rded National Score (1-100), lower number is lower ri sk 86 06/17/2023 State Score (1-10), lower number is lower risk 8 06/17/2023 Data from: https://www.neighborhoodatlas.medicine.[facility].edu/. Last address used for calculation [facility] [address] 06/17/2023 Sex and Gender Information Value Date [...] EDT OT/PT/Speech Visit [facility] [address] [facility] [place] [address] Chery Layton, PT [address] [facility] [place] [address] [place] [address] no copay Chronic bilateral low back pain with left-sided sciatica [G89.29, M54.42] 06/06/2025 3:00 PM EDT Office Visit Endocrinology [address] [facility] [place] [id number] Glo Alan, JANIE.HEAT SEAL OPERATOR [address] [facility] [address] [place] [address] see HEAT SEAL OPERATOR in [place] 6 months 08/11/2025 2:40 PM EDT Office Visit [facility] [place] [address] [place] [address] [place] [address] [address] [place], [place] [phone] 6 MONTH FOLLOW UP 12/07/2025 3:40 PM EST Office Visit Endocrinology [address] [place] [address] Bernardino Villagomez, [address] [place] [address] me in one year. documented as of this encounter Visit Diagnoses Not on filedocumented in this encounter Care Teams Audience Coordinator Relationship Specialty Start Date End Date Joseph Araya Jr., [address] [place] [phone] PCP - General 10/12/07 documented as of this encounter
--- OUTSIDE RECORDS SUMMARY | 2025-03-25 16:40 | XMS_ITS | Encounter Summary ---
Author Organization [facility] Address [address] [place] [address] Care Team Providers Care Clip On Sunglasses Inspector Name Role Phone Quiana Mckeon DO, George Robert Primary Care Provi clemente Source Comments In the event this information is protected by the Federal Confidentiality of Alcohol and Drug AbusePatient Records regulations: The Federal rules restrict any use of the information to criminally investigate or prosecute any alcohol or drug abuse patient.[facility] Encounter Details Date Type Department Care Team (Late st Contact Info) Description 01/14/2025 Get Medical Advice [facility] [place] [address] [facility] [place], [place] [phone] [place] [address] [address] [place], [place] [phone] Calf muscle spasms Social History Tobacco Use Types Packs/Day Years Used Date Smoking Tobacco: Former Cigarettes Smokeless Tobacco: Never Comments:1 ppd x 20 years fo rmer smoker Alcohol Use Standard Drinks/Week Comments Yes 5 (1 standard drink = 0.6 oz pur e alcohol) Area Deprivation Index Answer Date Masoud rded National Score (1-100), lower number is lower ri 86 06/17/2023 State Score (1-10), lower number is lower risk 8 06/17/2023 Data from: https://www.neighborhoodatlas.[facility]/. Last address used for calculation [...] EDT OT/PT/Speech Visit [facility] [address] [facility] [place] [address] Chery Layton, LAN [address] [place] [address] no copay Chronic bilateral low back pain with left-sided sciatica [G89.29, M54.42] 06/06/2025 3:00 PM EDT Office Visit Endocrinology [address] [place] [address] Glo Alan APRN.ENERGY PROJECTS LEAD [address] [place] [address] see ENERGY PROJECTS LEAD in [place] 6 months 08/11/2025 2:40 PM EDT Office Visit [facility] [place] [address] [facility] [place] [address] [place] [address] [place] [address] 6 MONTH FOLLOW UP 12/07/2025 3:40 PM EST Office Visit Endocrinology [address] [place] [address] Bernardino Villagomez, DO [address] [place] [address] me in one year. documented as of this encounter Visit Diagnoses Diagnosis S/P lumbar spine operation- Primary Other postprocedural status documented in this encounter Care Teams Clip On Sunglasses Inspector Relationship Specialty Start Date End Date Joseph Araya Jr., DO [address] [place] [phone] PCP - General 10/12/07 documented as of this encounter
--- OUTSIDE RECORDS SUMMARY | 2025-03-25 16:40 | XMS_ITS | Encounter Summary ---
Author Organization [facility] Address [address] [place] [address] Care Team Providers Care Coconut Boiler Name Role Phone Quiana Mckeon DO, George Robert Primary Care Provi clemente Source Comments In the event this information is protected by the Federal Confidentiality of Alcohol and Drug AbusePatient Records regulations: The Federal rules restrict any use of the information to criminally investigate or prosecute any alcohol or drug abuse patient.[facility] Encounter Details Date Type Department Care Team (Late st Contact Info) Description 01/11/2025 Patient Msg [facility] [place] [address] [place] [phone] Provider, Ccf ACTION REQUIRED: Skin Preparation before your surgery Social History Tobacco Use Types Packs/Day Years Used Date Smoking Tobacco: Former Cigarettes Smokeless Tobacco: Never Comments:1 ppd x 20 years fo rmer smoker Alcohol Use Standard Drinks/Week Comments Yes 5 (1 standard drink = 0.6 oz pur e alcohol) Area Deprivation Index Answer Date Masodu rded National Score (1-100), lower number is lower ri sk 86 06/17/2023 State Score (1-10), lower number is lower risk 8 06/17/2023 Data from: https://www.neighborhoodatlas.medicine.[facility].edu/. Last address used for calculation [address] [...] EDT OT/PT/Speech Visit [facility] [address] [place] [address] Chery Layton, PT [address] [facility] [place] [address] [place] [address] no copay Chronic bilateral low back pain with left-sided sciatica [G89.29, M54.42] 06/06/2025 3:00 PM EDT Office Visit Endocrinology [address] [facility] [place] [address] Glo Alan, OPERATIONS INTERN.STRUCTURAL ENGINEERING PROJECT MANAGER [address] [facility] [address] [place] [address] see STRUCTURAL ENGINEERING PROJECT MANAGER in [place] 6 months 08/11/2025 2:40 PM EDT Office Visit [facility] [place] [address] [facility] [address] [place] [address] [place] [address] 6 MONTH FOLLOW UP 12/07/2025 3:40 PM EST Office Visit Endocrinology [address] [place] [address] Bernardino Villagomez, DO [address] [place] [address] me in one year. documented as of this encounter Visit Diagnoses Not on filedocumented in this encounter Care Teams Coconut Boiler Relationship Specialty Start Date End Date Joseph Araya Jr., DO [address] [place] [address] PCP - General 10/12/07 documented as of this encounter
--- OUTSIDE RECORDS SUMMARY | 2025-03-25 16:40 | XMS_ITS | Encounter Summary ---
Author Organization [facility] Address [address] [place] [address] Care Team Providers Care Sales Review Clerk Name Role Phone Quiana Mckeon DO, George Robert Primary Care Provi clemente Source Comments In the event this information is protected by the Federal Confidentiality of Alcohol and Drug AbusePatient Records regulations: The Federal rules restrict any use of the information to criminally investigate or prosecute any alcohol or drug abuse patient.[facility] Encounter Details Date Type Department Care Team (Latest Contact Info) Description 03/16/2025 Travel Social History Tobacco Use Types Packs/Day Years [...] is lower risk 8 06/17/2023 Data from: https://www.neighborhoodatlas.medicine.[facility].edu/. Last address used for calculation [address] [place] [address] 06/17/2023 Sex and Gender Information Value Date [...] EDT OT/PT/Speech Visit [facility] [address] [facility] [place] [place] [address] Chery Layton, PT [address] [facility] [address] [place] [address] no copay Chronic bilateral low back pain with left-sided sciatica [G89.29, M54.42] 06/06/2025 3:00 PM EDT Office Visit Endocrinology [address] [facility] [place] [address] Glo Alan, JANIE.CLIENT ARCHITECT [address] [facility] [address] [place] [address] see CLIENT ARCHITECT in [place] 6 months 08/11/2025 2:40 PM EDT Office Visit [facility] [place] [address] [place] [address] [place] [address] [place] [address] 6 MONTH FOLLOW UP 12/07/2025 3:40 PM EST Office Visit Endocrinology [address] [place] [address] Bernardino Villagomez, DO [address] [place] [address] me in one year. documented as of this encounter Visit Diagnoses Not on filedocumented in this encounter Care Teams Sales Review Clerk Relationship Specialty Start Date End Date Joseph Araya Jr., DO [address] [facility] [place] [phone] PCP - General 10/12/07 documented as of this encounter
--- OUTSIDE RECORDS SUMMARY | 2025-03-25 16:40 | XMS_ITS | Encounter Summary ---
Author Organization [facility] Address [address] [place] [address] Care Team Providers Care Pulmonary Nurse Practitioner Name Role Phone Quiana Mckeon DO, George Robert Primary Care Provi clemente Source Comments In the event this information is protected by the Federal Confidentiality of Alcohol and Drug AbusePatient Records regulations: The Federal rules restrict any use of the information to criminally investigate or prosecute any alcohol or drug abuse patient.[facility] Encounter Details Date Type Department Care Team ([facility] st Contact Info) Description 08/23/2024 Patient Msg [place] [address] [facility] [address] [place], [place] [phone] Provider, [place] [facility] Procedure Instructions 09/28/2024 Social History Tobacco Use Types Packs/Day Years Used Date Smoking Tobacco: Former Cigarettes Smokeless Tobacco: Never Alcohol Use Standard Drinks/Week Comments Yes 0 (1 standard drink = 0.6 oz pur e alcohol) Area Deprivation Index Answer Date Masoud rded National Score (1-100), lower number is lower ri sk 86 06/17/2023 State Score (1-10), lower number is lower risk 8 06/17/2023 Data from: https://www.neighborhoodatlas.medicine.[facility].edu/. Last address used for calculation [address] [place] [address] 06/17/2023 Sex and Gender Information Value Date [...] EDT OT/PT/Speech Visit [facility] [address] [place] [address] Chery Layton, PT [address] [facility] [place] [address] [place] [address] no copay Chronic bilateral low back pain with left-sided sciatica [G89.29, M54.42] 06/06/2025 3:00 PM EDT Office Visit Endocrinology [address] [facility] [place] [address] Glo Alan, JANIE.M1A1 TANK CREWMAN [address] [facility] [address] [facility] [address] [place] [address] see M1A1 TANK CREWMAN in [place] 6 months 08/11/2025 2:40 PM EDT Office Visit [facility] [place] [address] [facility] [place] [address] [place] [address] [address] [place], [place] [phone] 6 MONTH FOLLOW UP 12/07/2025 3:40 PM EST Office Visit Endocrinology [address] [place] [address] Bernardino Villagomez, [address] [place] [address] me in one year. documented as of this encounter Visit Diagnoses Not on filedocumented in this encounter Care Teams Pulmonary Nurse Practitioner Relationship Specialty Start Date End Date Joseph Araya Jr., [address] [place] [address] PCP - General 10/12/07 documented as of this encounter
--- OUTSIDE RECORDS SUMMARY | 2025-03-25 16:40 | XMS_ITS | Encounter Summary ---
Author Organization [facility] Address [address] [facility] [place] [address] Care Team Providers Care Wash Helper Name Role Phone Joseph Araya DO Primary Care Provider [phone] Joseph Araya DO Unavailable Encounter Details Date Type Department Care Team (Late st Contact Info) Description 07/30/2023 Orders Only [facility] [address] [facility] [address] [place] [address] A, Unknown Practice [address] [place], [place] [phone] Social History Tobacco Use Types Packs/Day Years [...] on file documented as of this encounter Plan of Treatment Not on file documented as of this encounter Procedures Procedure Name Priority Date/Time Associated Diagnosis Comments SCANNED LABS Routine 06/05/2023 8:14 AM EDT documented in this encounter Results * SCANNED LABS (06/05/2023 8:14 AM EDT) us Unknown Practice A LAB CHG PERFORMABLES Final Re sult documented in this encounter Visit Diagnoses Not on filedocumented in this encounter Care Teams Wash Helper Relationship Specialty Start Date End Date Joseph Araya DO [address] [place] [address] PCP - General Family Medicine 04/02/23 Joseph Araya DO [address] [place] [address] PCP - Medical [place] [employer] 05/03/14 11/02/99 documented as of this encounter
--- OUTSIDE RECORDS SUMMARY | 2025-03-25 16:40 | XMS_ITS | Encounter Summary ---
Author Organization [facility] Address [address] [place] [address] Care Team Providers Care Windows Technical Specialist Name Role Phone Joseph Araya DO Primary Care Provider [phone] Joseph Araya DO Unavailable [phone] Encounter Details Date Type Department Care Team (Late st Contact Info) Description 06/21/2024 Abstract [facility] [address] [facility] [address] [place] [id number] Joseph Araya DO [address] [facility] [address] [place] [address] Social History Tobacco Use Types Packs/Day Years Used Date Smoking Tobacco: Former Cigarettes Q uit: 11/03/2018 Smokeless Tobacco: Never Alcohol Use Standard Drinks/Week Comments Yes 2 (1 standard drink = 0.6 oz pure alcohol) coffee: more than 4 cups per day; soda Social Connection and Isolat ion Panel [NHANES] Answer Date Recorded In a typical week, how many times do you talk on the phone with family, friends, or neighbors? More than three times a week 01/07/2024 How often do you get togethe r with friends or relatives? More than three times a week 01/07/2024 How often do you attend chur ch or methodist services? More than 4 times per year 01/07/2024 Do you belong to any clubs o r organizations such as anglican groups, unions, fraternal or athletic groups, or school groups? No 01/07/2024 How often do you attend meet ings of the clubs or organizations you belong to? Never 01/07/2024 Are you , , di vorced, , never , or living with a partner? 01/07/2024 AUDIT-C Answer Date Recorded Q1: How often do you have a drink containing alc ohol? Patient declined 01/07/2024 Q2: How many drinks containi ng alcohol do you have on a typical day when you are drinking? Patient declined 01/07/2024 Q3: How often do you have si x or more drinks on one occasion? Patient declined 01/07/2024 Overall Financial Resource Strain (CARDIA) Answe r Date Recorded How hard is it for you to pa y for the very basics like food, housing, medical care, and heating? Patient declined 01/07/2024 PHQ-2 Answer Date Recorded Patient Health Questionnaire-2 Score 0 06/09/2024 [facility] - Occupational Stress Questionnaire Answer Date Recorded Do you feel stress - tense, restless, nervous, or anxious, or unable to sleep at night because your mind is troubled all the time - these days? Only a little 01/07/2024 Exercise Vital Sign Answer Date Recorde d On average, how many days pe r week do you engage in moderate to strenuous exercise (like a brisk walk)? 6 days 01/07/2024 On average, how many minutes do you engage in exercise at this level? 90 min 01/07/2024 Hunger Vital Sign Answer Date Recorded Within the past 12 months, y ou worried that your food would run out before you got the money to buy more. Patient declined Within the past 12 months, t he food you bought just didn't last and you didn't have money to get more. Patient declined 04/2024 PRAPARE - Transportation Answer Date Re corded In the past 12 months, has l ack of transportation kept you from medical appointments or from getting medications? No 04/2024 In the past 12 months, has l ack of transportation kept you from meetings, work, or from getting things needed for daily living? No 01/07/2024 Housing Stability Vital Sign Answer Titi e Recorded In the last 12 months, was t here a time when you were not able to pay the mortgage or rent on time? Patient declined 01/07/20 24 Number of Places Lived in the Last Year Not on f ile 01/07/2024 In the last 12 months, was t here a time when you did not have a steady place to sleep or slept in a mcc (including now)? Patient declined 01/07/2024 Sex and Gender Information Value Date Recorded Sex Assigned at Not on file Legal Sex Male 6:52 PM EDT Gender Identity Not on file Sexual Orientation Not on file documented as of this encounter Plan of Treatment Not on file documented as of this encounter Visit Diagnoses Not on filedocumented in this encounter Care Teams Windows Technical Specialist Relationship Specialty Start Date End Date Joseph Araya DO [address] [place] [address] PCP - General Family Medicine 04/02/23 Joseph Araya DO [address] [place] [address] PCP - Medical [place] [employer] 05/03/14 11/02/99 documented as of this encounter
--- OUTSIDE RECORDS SUMMARY | 2025-03-25 16:40 | XMS_ITS | Encounter Summary ---
Author Organization [facility] Address [address] [facility] [place] [address] Care Team Providers Care Roll Setter Name Role Phone Joseph Araya DO Primary Care Provider Joseph Araya DO Unavailable [phone] Encounter Details Date Type Department Care Team (Late st Contact Info) Description 06/20/2023 Orders Only [facility] [address] [facility] [address] [place] [address] A, Unknown Practice [address] [place], [place] [id number] Social History Tobacco Use Types Packs/Day Years [...] Date/Time Associated Diagnosis Comments SCANNED LABS Routine 06/20/2023 3:20 PM EDT SCANNED LABS Routine 06/20/2023 2:43 PM EDT documented in this encounter Results * SCANNED LABS (06/20/2023 3:20 PM EDT) us Unknown Practice A LAB CHG PERFORMABLES Final Re sult * SCANNED LABS (06/20/2023 2:43 PM EDT) us Unknown Practice A LAB CHG PERFORMABLES Final Re sult documented in this encounter Visit Diagnoses Not on filedocumented in this encounter Care Teams Roll Setter Relationship Specialty Start Date End Date Joseph Araya DO [address] [place] [address] PCP - General Family Medicine 04/02/23 Joseph Araya DO [address] [place] [address] PCP - Medical [place] [employer] 05/03/14 11/02/99 documented as of this encounter
--- OUTSIDE RECORDS SUMMARY | 2025-03-25 16:40 | XMS_ITS | Encounter Summary ---
Author Organization [facility] Address [address] [facility] [place] [address] Care Team Providers Care Child Development Instructor Name Role Phone Joseph Araya DO Primary Care Provider Joseph Araya DO Unavailable [phone] Encounter Details Date Type Department Care Team (Late st Contact Info) Description 06/06/2023 Orders Only [facility] [address] [facility] [address] [place] [phone] A, Unknown Practice [address] [place], [place] [phone] Social History Tobacco Use Types Packs/Day Years [...] Procedure Name Priority Date/Time Associated Diagnosis Comments XR CHEST 2 VIEWS Routine 06/05/2023 10:26 AM EDT SCANNED LABS Routine 06/05/2023 10:23 AM EDT SCANNED LABS Routine 06/05/2023 9:37 AM EDT SCANNED LABS Routine 06/05/2023 8:49 AM EDT documented in this encounter Results * XR chest 2 views (06/05/2023 10:26 AM EDT) Anatomical Region Laterality Modality Chest Radiographic Rebecca ging us Unknown Practice A IMG XR PROCEDURES Final Resul t * SCANNED LABS (06/05/2023 10:23 AM EDT) us Unknown Practice A LAB CHG PERFORMABLES Final Re sult * SCANNED LABS (06/05/2023 9:37 AM EDT) us Unknown Practice A LAB CHG PERFORMABLES Final Re sult * SCANNED LABS (06/05/2023 8:49 AM EDT) us Unknown Practice A LAB CHG PERFORMABLES Final Re sult documented in this encounter Visit Diagnoses Not on filedocumented in this encounter Care Teams Child Development Instructor Relationship Specialty Start Date End Date Joseph Araya DO [address] [place] [address] PCP - General Family Medicine 04/02/23 Joseph Araya DO [address] [place] [address] PCP - Medical [place] [employer] 05/03/14 11/02/99 documented as of this encounter
--- OUTSIDE RECORDS SUMMARY | 2025-03-25 16:40 | XMS_ITS | Clinical Summary ---
Author Organization [facility] Address [address] [place] [address] Care Team Providers Care Notched Blade Loader Name Role Phone Joseph Araya DO Primary Care Provider [phone] Joseph Araya DO Unavailable [phone] Allergies Active Allergy Reactions Criticality Noted Date Comments Adalimumab 03/19/2023 Other Reaction(s): chest pain, cough Methotrexate Unknown 03/19/2023 Red Dye #40 (Allura Red) Unknown 03/19/2023 Sulfamethoxazole 04/16/2022 Other Reaction(s): Unknown Reaction Sulfamethoxazole-Trimethoprim Unknown 2022 Trimethoprim 04/16/2022 Other Reaction(s): Unknown Reaction Medications Ascorbic Acid (vitamin C) 1000 MG tablet Take 1,000 mg by mouth 1 (one) time each day at the same time. Active Multiple Vitamins-Minerals (MULTIVITAMIN ADULT, MINERALS, PO) Multivitamin Active famotidine (Pepcid) 20 MG tablet Take 20 mg by mouth in the morning. Active ASPIRIN 81 MG chewable tablet Chew 81 mg 1 (one) time. Active insulin lispro (HumaLOG) 100 UNIT/ML injection Inject under the skin 3 (three) times a day with meals. Active minocycline (Dynacin) 100 MG tablet Take 100 mg by mouth every 30 (thirty) days Active ofloxacin (Floxin) 400 MG tablet Take 400 mg by mouth every 30 (thirty) days Active rifAMPin (Rifadin) 300 MG capsule Take 600 mg by mouth every 30 (thirty) days Active levothyroxine (Synthroid, Levoxyl) 50 MCG tabletIndications: Hypothyroidism, unspecified type (CMS/HCC) TAKE 2 TABLETS ONCE DAILY IN THE MORNING ON AN EMPTY STOMACH 180 tablet 3 05/20/20 24 Active Icosapent Ethyl (Vascepa) 1 g capsuleIndications :Hypertension, unspecified type (CMS/HCC) TAKE 2 CAPSULES TWICE A DAY WITH MEALS 360 capsule 3 06/24/20 24 Active cyclobenzaprine (Flexeril) 10 MG tabletIndications: Sciatica of left side,Pain,Backgrou nd diabetic retinopathy ([facility]) Take 1 tablet (10 mg) by mouth at bedtime 08/11/20 24 Active albuterol HFA (ProAir HFA) 90 mcg/act inhalerIndications :Moderate asthma with exacerbation, unspecified whether persistent ([facility]) Inhale 2 puffs every 4 (four) hours if needed for shortness of breath or wheezing 08/11/20 24 Active rosuvastatin (Crestor) 20 MG tabletIndications: Hyperlipidemia, unspecified hyperlipidemia type ([facility]) TAKE 1 TABLET DAILY 90 tablet 3 09/06/20 24 Active FLUoxetine (PROzac) 40 MG capsuleIndications :Anxiety and depression ([facility]) TAKE 1 CAPSULE DAILY 90 capsule 3 09/22/20 24 Active tiZANidine (Zanaflex) 4 MG tabletIndications: Neuropathy,Spinal stenosis, unspecified spinal region,Sciatica of left side TAKE 1 TABLET EVERY 6 HOURS IF NEEDED FOR MUSCLE SPASMS 180 tablet 2 10/07/20 24 Active Advair HFA 230-21 MCG/ACT inhalerIndications :Moderate asthma with exacerbation, unspecified whether persistent ([facility]) USE 2 INHALATIONS TWICE A DAY 36 g 3 10/29/20 24 Active ibuprofen 800 MG tabletIndications: Pain TAKE 1 TABLET THREE TIMES A DAY NEEDED FOR MODERATE PAIN OR MILD PAIN 120 tablet 8 11/16/19 25 Active fluticasone (Flonase) 50 MCG/ACT nasal sprayIndications:D ysfunction of Eustachian tube, unspecified laterality Administer 2 sprays into each nostril Daily 16 g 3 12/08/19 25 Active gabapentin (Neurontin) 800 MG tabletIndications: Sciatica of left side,Pain TAKE ONE AND ONE-HALF TABLETS IN THE MORNING AND IN THE EVENING AND BEFORE BEDTIME 360 tablet 3 12/28/19 25 Active montelukast (Singulair) 10 MG tabletIndications: Allergic rhinitis, unspecified seasonality, unspecified trigger TAKE 1 TABLET DAILY IN THE EVENING 90 tablet 3 02/15/20 25 Active lisinopril 20 MG tabletIndications: Primary hypertension (CMS/HCC) TAKE 1 TABLET DAILY 90 tablet 3 02/15/20 25 Active Active Problems Problem Noted Date Diagnosed Date Abnormal MRI, lumbar spine 06/14/2024 Colon cancer screening 06/14/2024 Major depressive disorder 04/29/2024 Neuropathy 04/29/2024 Anxiety 10/21/2023 Diabetes mellitus 10/21/2023 History of hypothyroidism 10/21/2023 Asthma 03/19/2023 Eustachian tube dysfunction 03/19/2023 Gastroesophageal reflux disease 03/19/2023 Hypertension 03/19/2023 Hypertriglyceridemia 03/19/2023 Type 1 diabetes mellitus without complication Ventricular premature contractions 03/19/2023 Internal derangement of right shoulder Impingement syndrome of shoulder region 03/16/20 Shoulder joint pain 03/16/2019 Background diabetic retinopathy 02/13/2016 Impotence of organic origin 07/22/2005 Hypopotassemia 06/12/2004 Resolved Problems Problem Noted Date Diagnosed Date Resolved Date Chronic maxillary sinusitis 07/02/2023 10/21/2023 Allergic rhinitis 03/19/2023 03/19/2023 Chronic pansinusitis 03/19/2023 023 DNS (deviated nasal septum) 03/19/2023 10/21/2023 Hyperlipidemia 03/19/2023 03/19/2023 Other disturbances of skin sensation 03/19/2023 03/19/2023 Encounters Date Type Department Care Team Description 02/14/2025 2:45 PM EDT Office Visit [facility] [address] [place] [address] Jeaneth Patel MD 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 Joseph Jordan, DO surgery 12/28/2024 Refill [facility] [address] [place] [address] Joseph Araya, DO Sciatica of left side; Pain from Last 3 Months Immunizations Immunization Administration Dates Next Due Hep B, adult 01/20/2004,11/02/2003,09/21/2003 Influenza, injectable, MDCK, preservative free, quadrivalent 07/27/2021,08/04/2019,08/05/2018,08/14 Influenza, injectable, quadr ivalent, preservative free 08/02/2023,08/03/2022,07/24/2021,07/24,08/15/2016 Influenza, seasonal, injectable 08/21/2021 Influenza, seasonal, injecta ble, preservative free 08/26/2015 Novel [id number], preservative-free 09/23/2009 Pfizer Purple Cap SARS-CoV-2 Vaccination 01/04/2021,12/14/2020 Pneumococcal Conjugate PCV 13 02/25/2019 Pneumococcal Polysaccharide PPSV23 05/21/2021 Zoster, Recombinant 04/15/2023,08/10/2022 Family History Medical History Relation Name Comments No Known Problems Brother Dementia Father Hypertension Father Stroke Father Glaucoma Mother Hypertension Mother Stomach cancer Mother No Known Problems Sister Macular degeneration Neg Hx Melanoma Neg Hx Relation Name Status Comments Brother x3 Father Mother Sister Social History Tobacco Use Types Packs/Day Years Used Date Smoking Tobacco: Former Cigarettes Q uit: 11/03/2018 Smokeless Tobacco: Never Tobacco Cessation:Counseling Given: Yes Alcohol Use Standard Drinks/Week Comments Yes 2 [...] often do you attend chur ch or latter-day services? More than 4 times per year 01/07/2024 Do you belong to any clubs o r organizations such as congregation groups, unions, fraternal or athletic groups, or [...] Date Recorded Patient Health Questionnaire-2 Score 0 08/11/2024 [facility]at ional [facility] - Occupational Stress Questionnaire Answer Date Recorded [...] on file Sexual Orientation Not on file Last Filed Vital Signs Vital Sign Reading Time Taken Comments Blood Pressure 148/78 09/03/2024 12:34 PM EDT Pulse 83 09/03/2024 12:34 PM EDT Temperature 36.7 C (98 F) 09/03/2024 12:34 PM EDT Respiratory Rate - - Oxygen Saturation 97% 09/03/2024 12:34 PM EDT Inhaled Oxygen Concentration - - Weight 93 kg (205 lb) 09/03/2024 12:34 PM EDT Height 172.7 cm (5' 8 ) 09/03/2024 12:34 PM EDT Body Mass Index 31.17 09/03/2024 12:34 PM EDT Plan of Treatment Health Maintenance Due Date Last Done Comments CT Colonography 1964 FIT-DNA 1964 FIT 1964 FOBT 1965 Sigmoidoscopy 1964 Diabetes: Hemoglobin A1C 03/29/2025 025, 12/07/2024, 07/08/2024, Additional history exists Colonoscopy 08/11/2025 08/11/2015 Colorectal Cancer Screening 08/11/2025 Diabetes: Urine Protein Screening 12/30/2025 12/30/2024, 12/30/2024, 06/09/2024, Additional history exists Diabetes: Retinopathy Screening 02/14/2026 02/14/2025, 02/14/2025, 02/14/2025, Additional history exists Influenza Vaccine Completed 08/31/2024, , 08/03/2022, Additional history exists Procedures Procedure Name Priority Date/Time Associated Diagnosis Comments MICROALBUMIN / CREATININE URINE RATIO Routine 06/09/2024 2:17 PM EDT Type 1 diabetes mellitus with other specified complication (CMS/HCC) HEMOGLOBIN A1C Routine 06/09/2024 2:17 PM EDT Type 1 diabetes mellitus with other specified complication (CMS/HCC) COLOR FUNDUS PHOTOGRAPHY - OU - BOTH EYES Routine 08/30/2020 12:00 PM EDT COLONOSCOPY Routine 08/11/2015 12:00 PM EDT from Last 3 Months or Most Recently Relevant to Health Maintenance Results * Color Fundus Photography - OU - Both Eyes (08/30/2020 12:00 PM EDT) Anatomical Region Laterality Modality Head Fundus Photograp hy 08/30/2020 12:0 0 PM EDT Narrative 08/30/2020 12:00 PM EDT PERFORMED AT [facility] LOCATION:[id number] [facility] Procedure Note CONVERSION, GENERIC - 03/19/2023 PERFORMED AT [facility] LOCATION:[id number] [facility] Joseph Araya DO OPHTH PHOTOGRAPHY Final Resul t * Colonoscopy (08/11/2015 12:00 PM EDT) Anatomical Region Laterality Modality Endoscopy 08/11/2015 12:0 0 PM EDT Narrative 08/11/2015 12:00 PM EDT PERFORMED AT [facility] LOCATION:[id number] Procedure Note CONVERSION, GENERIC - 03/20/2023 PERFORMED AT [facility] LOCATION:[id number] Joseph Araya DO ENDOSCOPY PROCEDURE ORDERABLE S Final Result from Last 3 Months or Most Recently Relevant to Health Maintenance Insurance [employer] Care Teams Notched Blade Loader Relationship Specialty Start Date End Date Joseph Araya DO [address] [facility] [address] [place] [address] PCP - General Family Medicine 04/02/23 Joseph Araya DO [address] [facility] [address] [place] [address] PCP - Medical [place] [employer] 05/03/14 11/02/99
--- OUTSIDE RECORDS SUMMARY | 2025-03-25 16:40 | XMS_ITS | Encounter Summary ---
Author Organization [facility] Address [address] [place] [address] Care Team Providers Care Transport Corps Officer Name Role Phone Quiana Mckeon DO, George Robert Primary Care Provi clemente Source Comments In the event this information is protected by the Federal Confidentiality of Alcohol and Drug AbusePatient Records regulations: The Federal rules restrict any use of the information to criminally investigate or prosecute any alcohol or drug abuse patient.[facility] Reason for Visit * Reason Comments Medication Request Encounter Details Date Type Department Care Team ([facility] st Contact Info) Description 03/07/2025 Telephone Neurology [address] [place] [id number] [place] [address] [place] [address] Medication Request Social History Tobacco Use Types Packs/Day [...] is lower risk 8 06/17/2023 Data from: https://www.[email or web address].medicine.[email or web address].edu/. Last address used for calculation [address] [...] encounter Miscellaneous Notes * Telephone Encounter - Kris Kovacs APRN.PLATER HELPER - 03/07/2025 10:56 AM EDT Called and spoke with Ori, he states he has increased pain in his low back radiating down his left leg to left foot/toes recently. Has been going to PT for past several weeks at [facility], has nothelped yet but he is going to continue but would like to do closer to home, he is going to provide our office a fax number for PT practice local to him and when he does we can fax order there for him. Rx for medrol dose pack sent to pharmacy. Advised he contact our office with any further questions/concerns. He is appreciative of call. * Telephone Encounter - Juliet Ness - 03/07/2025 10:47 AM EDT Pt phoned requesting anti inflammatory also asking for physical therapy location change. Pt will contact w name of location and fax number. Pt also asking if able to order massotherapy. documented in this encounter Plan of Treatment Upcoming Encounters Date Type Department Care Team (Latest Contact Info) Description 04/11/2025 6:00 PM EDT OT/PT/Speech Visit [facility] [address] [facility] [place] [address] Chery Layton, PT [address] [place] [address] no copay Chronic bilateral low back pain with left-sided sciatica [G89.29, M54.42] 06/06/2025 3:00 PM EDT Office Visit Endocrinology [address] [place] [address] Glo Alan, JANIE.PLATER HELPER [address] [place] [address] see PLATER HELPER in [place] 6 months 08/11/2025 2:40 PM EDT Office Visit [facility] [address] [place] [address] [place] [address] [place], [place] [id number] 6 MONTH FOLLOW UP 12/07/2025 3:40 PM EST Office Visit Endocrinology [address] [place] [address] Bernardino Villagomez, DO [address] [place], [place] [id number] mt in one year. documented as of this encounter Visit Diagnoses Diagnosis Radiculopathy, lumbar region- Primary Thoracic or lumbosacral neuritis or radiculitis, unspecified documented in this encounter Care Teams Transport Corps Officer Relationship Specialty Start Date End Date Joseph Araya Jr., [address] [place] [address] PCP - General 10/12/07 documented as of this encounter
--- OUTSIDE RECORDS SUMMARY | 2025-03-25 16:40 | XMS_ITS | Encounter Summary ---
Author Organization [facility] Address [address] [place] [address] Care Team Providers Care Eap Clinician Name Role Phone Joseph Araya DO Primary Care Provider [phone] Joseph Araya DO Unavailable [phone] Encounter Details Date Type Department Care Team (Late st Contact Info) Description 06/25/2024 External Result Encounter [facility] External Department Unsolicited Joseph Araya DO [address] [facility] [address] [place] [address] Social History Tobacco Use Types Packs/Day Years [...] often do you attend chur ch or uatsdin services? More than 4 times per year 01/07/2024 Do you belong to any clubs o r organizations such as rastafarian groups, unions, fraternal or athletic groups, or [...] Recorded Patient Health Questionnaire-2 Score 0 06/09/2024 [facility] - Occupational Stress Questionnaire Answer Date [...] place to sleep or slept in a longterm (including now)? Patient declined 01/07/2024 Sex and Gender Information Value Date Recorded Sex Assigned at Not on file Legal Sex Male 6:52 PM EDT Gender Identity Not on file Sexual Orientation Not on file documented as of this encounter Plan of Treatment Not on file documented as of this encounter Procedures Procedure Name Priority Date/Time Associated Diagnosis Comments NM BONE WHOLE BODY 06/25/2024 1: 59 PM EDT documented in this encounter Results * NM bone whole body (06/25/2024 1:59 PM EDT) Anatomical Region Laterality Modality Nuclear Medicine 06/25/2024 1:59 PM EDT Impressions 06/25/2024 2:26 PM EDT No abnormal osteoblastic activity to correspond with bony lesions. Osteolytic metastasis not excluded. May consider additional imaging to assess for primary malignancy. Impression dictated by: Alfie Morin M.D.06/25/2024 2:23 PM Dictation Location: [place] [address] Transcribed By: [facility] 06/25/24 1423 Dictated By: Alfie Morin DO 06/25/24 1359 Signed By: <Electronically signed by Alfie Morin DO in OV> 06/25/24 1423 Narrative 06/25/2024 2:26 PM EDT [facility] [place] [address] Nuclear Medicine Report Signed Patient: Jareth Lantigua MR#: [id number] [birth year] : 1965 Acct:[id number] Age/Sex: 58 / M ADM Date: 06/25/24 Loc: [place] Room: Type: [facility] Attending Dr: Darryn Araya DO Copies [...] left thumb. NM/NM bone scan whole body Procedure Note Radiology, Radiologist, MD - 06/25/2024 [facility] Main [place] [address] [place] [address] Nuclear Medicine Report Signed Patient: Jareth Lantigua [facility]#: [id number] [birth year] : 1965Acct:[id number] Age/Sex: 58 / MADM Date: 06/25/24 Loc: [place] Room:Type: [facility] Attending Dr: Darryn Araya DO Copies to: Cristy Araya Jr, DO Ward, Jeffrey S DO Ordering Provider: Cristy Araya Jr, DO Date of Service: 06/25/24 NM/NM bone scan whole body: M89.9 Nuclear medicine bone scan of whole body TECHNIQUE: 22.1mCi of technetium 99m labeled MDP was administered.Planar imaging obtained in multiple planes. COMPARISON: MRI lumbar spine 06/02/2024. Concern for enhancingthoracolumbar spine the left iliac bone lesions concerning for malignancy HISTORY: Bony lesions identified with MRI of the lumbar spine 06/02/2024 Findings: Homogeneous uptake of the skeletal system identified. Noabnormal increased or decreased uptake seen to correspond with the MRI findings. Degenerative uptake ofthe medial portion of left knee. Degenerative uptake of the left thumb. NM/NM bone scan whole body IMPRESSION: No abnormal osteoblastic activity to correspond with bony lesions.Osteolytic metastasis not excluded. May consider additional imaging to assess forprimary malignancy. Impression dictated by: Alfie Morin M.D.06/25/2024 2:23 PM Dictation Location: [place] [address] Transcribed By: [facility] 06/25/24 1420 Dictated By: Alfie Morin DO 06/25/24 1359 Signed By: <Electronically signed by Alfie Morin DO in [place]> 06/25/24 1423 Joseph Araya DO IMG NM PROCEDURES Final Resul t documented in this encounter Visit Diagnoses Not on filedocumented in this encounter Care Teams Eap Clinician Relationship Specialty Start Date End Date Joseph Araya DO [address] [place] [address] PCP - General Family Medicine 04/02/23 Joseph Araya DO [address] [place] [address] PCP - Medical [place] [employer] 05/03/14 11/02/99 documented as of this encounter
--- OUTSIDE RECORDS SUMMARY | 2025-03-25 16:40 | XMS_ITS | Encounter Summary ---
Author Organization [facility] Address [address] [place] [address] Care Team Providers Care Inpatient Services Director Name Role Phone Joseph Araya DO Primary Care Provider [phone] Joseph Araya DO Unavailable [phone] Encounter Details Date Type Department Care Team (Late st Contact Info) Description 07/02/2023 Abstract [facility] [address] [facility] [address] [place] [address] Joseph Araya DO [address] [place] [address] Social History Tobacco Use Types Packs/Day Years [...] on filedocumented in this encounter Care Teams Inpatient Services Director Relationship Specialty Start Date End Date Joseph Araya DO [address] [facility] [place] [address] PCP - General Family Medicine 04/02/23 Joseph Araya DO [address] [place] [address] PCP - Medical [place] [employer] 05/03/14 11/02/99 documented as of this encounter
--- OUTSIDE RECORDS SUMMARY | 2025-03-25 16:40 | XMS_ITS | Encounter Summary ---
Author Organization [facility] Address [address] [place] [address] Care Team Providers Care Tmr Teacher Name Role Phone Quiana Mckeon DO, George Robert Primary Care Provi clemente Source Comments In the event this information is protected by the Federal Confidentiality of Alcohol and Drug AbusePatient Records regulations: The Federal rules restrict any use of the information to criminally investigate or prosecute any alcohol or drug abuse patient.[facility] Reason for Visit * Reason Comments Appointment Encounter Details Date Type Department Care Team (Late st Contact Info) Description 12/28/2024 [address] [facility] [address] [place] [id number] [place] [address] [address] [place], [place] [phone] Appointment Social History Tobacco Use Types Packs/Day Years Used Date Smoking Tobacco: Former Cigarettes Smokeless Tobacco: Never Alcohol Use Standard Drinks/Week Comments Yes 0 (1 standard drink = 0.6 oz pur e alcohol) Area Deprivation Index Answer Date Masoud rded National Score (1-100), lower number is lower ri sk 86 06/17/2023 State Score (1-10), lower number is lower risk 8 06/17/2023 Data from: https://www.neighborhoodatlas.[facility]/. Last address used for calculation [address] [...] 02/28/2015 7:24 PM EDYoselyn Reyes LPN * Because of a physical, mental, [...] Yoselyn Rivero LPN documented in this encounter Miscellaneous Notes * Telephone Encounter - Jerry Chew - 12/28/2024 11:30 AM EST Jareth is calling Maliha Chacko MD today Asking if he can be called back to get surgery scheduled. Please advise and call the patient back. Appointment Patient has been identified by name and birthdate. Duration of symptoms: N/A Person calling: self Call patient at: at home [phone] (home) [phone] (cell) Was an appointment scheduled: No Closing statement: Results or non-symptom based questions: Thank you for calling [facility], your call will be returned within the next business day. Jerry Chew documented in this encounter Plan of Treatment Upcoming Encounters Date Type Department Care Team (Latest Contact Info) Description 04/11/2025 6:00 PM EDT OT/PT/Speech Visit [facility] [address] [facility] [place] [address] Chery Layton, PT [address] [facility] [place] [address] no copay Chronic bilateral low back pain with left-sided sciatica [G89.29, M54.42] 06/06/2025 3:00 PM EDT Office Visit Endocrinology [address] [facility] [place] [address] Glo Alan APRN.[employer] [address] [place] [address] see [employer] in [place] 6 months 08/11/2025 2:40 PM EDT Office Visit Spine [facility] [address] [place] [address] [place] [address] [place] [address] 6 MONTH FOLLOW UP 12/07/2025 3:40 PM EST Office Visit Endocrinology [address] [place] [address] Bernardino Villagomez DO [address] [place] [address] me in one year. documented as of this encounter Visit Diagnoses Not on filedocumented in this encounter Care Teams Tmr Teacher Relationship Specialty Start Date End Date Joseph Araya Jr., [address] [facility] [place] [address] PCP - General 10/12/07 documented as of this encounter
--- OUTSIDE RECORDS SUMMARY | 2025-03-25 16:40 | XMS_ITS | Clinical Summary ---
Author Organization [facility] Address [address] [place], [place] [id number] Care Team Providers Care Pillowcase Turner Name Role Phone Quiana Mckeon DO, George Robert Primary Care Provi clemente Allergies Active Allergy Reactions Criticality Noted Date Comments Adalimumab GI Upset 08/20/2017 Methotrexate Unknown 05/21/2019 Red Dye Unknown 07/04/2002 Medications CENTRUM ECHINACEA CAPSULE 100MG PO 0 2 Active ONE TOUCH F[place] LANCET uses 6-8 a day 700 3 5 Active ONE TOUCH ULTRA TEST STRIPS chekc 6-8 timea a day(insulin pump) 700 3 6 Active fluoxetine hcl(PROZAC 20 MG CAP) 3 tabs daily 0 0 0 Active aspirin, enteric coated (ECOTRIN LOW STRENGTH) 81 mg ORAL EC tablet Take 1 tablet by mouth once daily. 0 1 Active lisinopril (ZESTRIL) 2.5 mg tablet Take 4 tablets by mouth once daily. 90 tablet 3 4 Active Subcutaneous Insulin Pump (ACCU-CHEK SPIRIT INSULIN PUMP) misc Basal rates: 24:00 --1.6units/hr; 0300:-2.3units/ hr;06:00-1.8;11 :00-1.8;12:00-2 .0;16:00-2.2;19 :00-2.7;21:00-2 .4 ;22:00-1.6. Bolus: 2 unit/6 Gms CHO each meal; correction : 1 unit every 25 mg > 125 mg/dl. Whn wrk. hrd: tmp bas at 80% 1 Each 0 5 Active PROAIR HFA 90 mcg/actuation inhaler Inhale 2 Puffs as instructed as needed. 8 Active ADVAIR HFA 115-21 mcg/actuation inhaler Inhale 4 Puffs as instructed once daily. 8 Active MUCINEX 600 mg 12 hr tablet Take 2 tablets by mouth once daily as needed. 0 8 Active ibuprofen (MOTRIN) 800 mg tablet Take 800 mg by mouth every 6 hours as needed. Active cyclobenzaprine (FLEXERIL) 10 mg tablet Take 10 mg by mouth three times daily as needed. 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 2 caps in the AM and 2 caps in the PM Active fluticasone (FLONASE) 50 mcg/actuation nasal spray Use in the nose. 9 Active rifAMPin (RIFADIN) 300 mg capsule Take 2 pills once monthly 16 capsule 4 Active Additional Information Patient not taking.Reported on 02/03/2025 ofloxacin (FLOXIN) 400 mg tablet Take 1 pill once monthly 8 tablet 4 Active Minocycline HCl 100 mg tablet Take 1 pill once monthly 8 tablet 4 Active famotidine (PEPCID) 20 mg tablet Take 1 tablet by mouth two times a day. 180 tablet 3 4 Active gabapentin (NEURONTIN) 400 mg capsule Take 800 mg by mouth. 3 x times dily 4 Active HUMALOG U-100 INSULIN 100 unit/mL injectionIndica tions:Mixed hyperlipidemia, Adult onset hypothyroidism, Insulin pump status INJECT 90 UNITS DAILY VIA INSULIN PUMP 90 mL 3 4 Active tiZANidine (ZANAFLEX) 4 mg tablet 4 mg. 4 Active methocarbamol (ROBAXIN) 750 mg tabletIndicatio ns:S/P lumbar spine operation Take 1 tablet by mouth three times a day. 60 tablet 5 Active methocarbamol (ROBAXIN) 500 mg tablet Take 1 tablet by mouth three times a day. 90 tablet 5 03/05/20 25 methylPREDNISol one (MEDROL, RIVAS,) 4 mg Dose-PackIndica tions:Radiculop athy, lumbar region As instructed per package 21 tablet 5 03/13/20 25 Active Problems Problem Noted Date Diagnosed Date Chronic midline low back pain without sciatica 0 03/01/2025 Hard to intubate 01/12/2025 Obesity, Class I, BMI 30-34.9 01/06/2025 Primary hypertension 12/30/2024 Assessment & Plan (12/30/2024 8:13 AM EST): Assessment: Managed with med, acceptable for surgery Date: BP: 12/30/2024 152/78 12/07/2024 153/64 Acquired hypothyroidism 12/30/2024 Assessment & Plan (12/30/2024 8:13 AM EST): Assessment: Stable with levothyroxine (SYNTHROID) , follows with Dr. Villagomez. Moderate asthma without complication 12/30/2024 Assessment & Plan (12/30/2024 8:14 AM EST): Assessment: Stable with inhalers, follows with PCP . Rare use us Albuterol Inhaler Background diabetic retinopathy 02/13/2016 Peyronie's. 08/08/2005 ED. 07/22/2005 Mixed hyperlipidemia 06/12/2004 Assessment & Plan (12/30/2024 8:19 AM EST): Assessment: Managed with med , Follows with PCP Hypopotassemia 06/12/2004 Type 1 diabetes mellitus with other specified co mplication 07/20/2002 Assessment & Plan (12/30/2024 8:12 AM EST): Assessment: Managed with insulin pump, CGM Follows with Dr. Alicja Villagomez ( Endocrinology , [facility] 12/07/2024) 12/07/2024 HgbA1c 7.1 % ; reports FBG 114 Hx diabetic retinopathy Resolved Problems Problem Noted Date Diagnosed Date Resolved Date Diabetes mellitus type 1, un controlled, without complications 02/13/2016 11/27/2018 Adult onset hypothyroidism 02/13/2016 0 11/27/2018 acquired hypothyroidism 03/05/201111/04 ABNORMAL THYROID FUNCT STUDY (neg MCAB) 02/03/2006 11/27/2018 Encounters Date Type Department Care Team Description 03/23/2025 Telephone Neurology [address] [place] [address] Maliha Berg MD Severe Pain 03/16/2025 5:00 PM EDT OT/PT/Speech Visit [facility] [address] [place] [address] Damien Velez PTA Chronic midline low back pain without sciatica (Primary Dx); Chronic bilateral low back pain with left-sided sciatica 03/16/2025 Travel 03/09/2025 5:00 PM EDT OT/PT/Speech Visit [facility] [address] [place] [address] Damien Velez PTA Chronic midline low back pain without sciatica (Primary Dx); Chronic bilateral low back pain with left-sided sciatica 03/09/2025 Travel 03/07/2025 Telephone Neurology [address] [place] [address] Maliha Berg MD Medication Request 03/01/2025 1:00 PM EDT OT/PT/Speech Visit [facility] [address] [place] [address] Chery Layton, PT Chronic midline low back pain without sciatica (Primary Dx); Chronic bilateral low back pain with left-sided sciatica 03/01/2025 Travel 02/03/2025 11:40 AM EDT Office Visit [facility] [address] [place] [address] Maliha Berg MD Chronic bilateral low back pain with left-sided sciatica (Primary Dx) 02/02/2025 Travel 01/26/2025 Refill Neurosurgery [address] [place] [address] Maliha Berg MD Refill Request 01/17/2025 Telephone Neurosurgery [address] [place] [address] Maliha Berg MD Patient Question; Medication Question 01/15/2025 Refill [facility] [address] [place] [address] Corona Thrasher MD Refill Request 01/14/2025 Telephone Neurology [address] [place] [address] Maliha Berg MD Updated Fax 01/14/2025 Get Medical Advice [facility] [address] [place] [address] Maliha Berg MD Calf muscle spasms 01/13/2025 Telephone Neurology [address] [place] [address] Maliha Berg MD Letter 01/12/2025 7:30 AM EDT - 01/12/2025 10:00 AM EDT Surgery [facility] Operating Room [address] [place] [id number] Maliha Berg MD LAMINOTOMY W/ DECOMPRESSION OF NERVE ROOT(S) PARTIAL FACETECTOMY FORAMINOTOMY AND/OR EXCISION OF HERNIATED INTERVERTEBRAL DISC 1 INTERSPACE LUMBAR 01/12/2025 7:28 AM EDT Anesthesia Event [facility] Operating Room [address] [place] [address] Ruddy Landa MD 01/12/2025 5:49 AM EDT - 01/12/2025 1:14 PM EDT Hospital Encounter [facility] Operating Room [address] [place] [address] Maliha Berg MD 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] Discharge Disposition: Home 01/12/2025 Travel 01/11/2025 Patient Msg [facility] [address] [phone] Provider, [facility] ACTION REQUIRED: Skin Preparation before your surgery 12/31/2024 Results Follow-Up Endocrinology [address] [place] [address] Glo Alan APRN.CHRISTINA 12/30/2024 7:50 AM EST PAT Pre Anesthesia [address] [place] [address] Pre-op evaluation (Primary Dx); Mixed hyperlipidemia; Type 1 diabetes mellitus with other specified complication (HCC); Primary hypertension; Acquired hypothyroidism; Moderate asthma without complication, unspecified whether persistent 12/30/2024 Travel 12/29/2024 Patient Msg [facility] [address] [place] [address] Provider, [facility] Important Reminder for Preparing Your Skin for Surgery 12/28/2024 Patient Update Neurosurgery [address] [place] [address] Maliha Berg MD 12/28/2024 Telephone [facility] [place] [address] [place] [address] Maliha Berg MD Appointment from Last 3 Months Family History Medical History Relation Comments None Daughter Lipids Father dementia. Multip le strokes. None Mother MVP Ischemic Heart Disease Other cousing d ied CAD age 44. Diabetes Paternal Uncle None Son Relation Status Comments Daughter Father Mother Other Paternal Uncle Son Social History Tobacco Use Types Packs/Day Years Used Date Smoking Tobacco: Former Cigarettes Smokeless Tobacco: Never Tobacco Cessation:Counseling Given: Not Answered Comments:1 ppd x 20 years former smoker Alcohol Use Standard Drinks/Week Comments Yes 5 (1 standard drink = 0.6 oz pur e alcohol) PHQ-2 Answer Date Recorded PHQ-2 score 2 02/02/2025 Area Deprivation Index Answer Date Masoud rded National Score (1-100), lower number is lower ri sk 86 06/17/2023 State Score (1-10), lower number is lower risk 8 06/17/2023 Data from: https://www.neighborhoodatlas.medicine.[facility].edu/. Last address used for calculation [address] [facility] 06/17/2023 Sex and Gender Information Value Date Recorded Sex Assigned at Not on file Legal Sex Male 9:42 AM EST Gender Identity Not on file Sexual Orientation Not on file Last Filed Vital Signs Vital Sign Reading Time Taken Comments Blood Pressure 132/75 01/12/2025 12:38 PM EDT Pulse 79 01/12/2025 12:38 PM EDT Temperature 36.3 C (97.3 F) 01/12/2025 12:38 PM EDT Respiratory Rate 16 01/12/2025 12:38 PM EDT Oxygen Saturation 99% 01/12/2025 12:38 PM EDT Inhaled Oxygen Concentration - - Weight 90.3 kg (199 lb 1.2 oz) 12/30/2024 8:00 A M EST Height 172.7 cm (5' 8 ) 12/30/2024 8:00 AM EST Body Mass Index 30.27 12/30/2024 8:00 AM EST Plan of Treatment Upcoming Encounters Date Type Department Care Team (Latest Contact Info) Description 04/11/2025 6:00 PM EDT OT/PT/Speech Visit [facility] [address] [place] [address] Chery Layton, PT [address] [address] no copay Chronic bilateral low back pain with left-sided sciatica [G89.29, M54.42] 06/06/2025 3:00 PM EDT Office Visit Endocrinology [address] [facility] [place] [address] Glo Alan APRN.ORACLE ADF CONSULTANT [address] [place] [address] see ORACLE ADF CONSULTANT in [place] 6 months 08/11/2025 2:40 PM EDT Office Visit [facility] [address] [place] [address] [place] [address] [place] [address] 6 MONTH FOLLOW UP 12/07/2025 3:40 PM EST Office Visit Endocrinology [address] [place] [address] Bernardino Villagomez, DO [address] [place] [address] me in one year. Health Maintenance Due Date Last Done Comments Annual PCP Team Chronic Dise ase Visit 1982 Anxiety Screening 1982 BP Controlled (<130/80) 1982 Depression Screening 1982 HIV Screening 1982 Hepatitis C Screening 1982 CT Colonography 2009 Cologuard (FIT-DNA) 2009 Fecal Occult Blood 2009 Sigmoidoscopy 2009 Diabetic Foot Exam 02/29/2016 02/28/2015, 0 03/23/2013, 03/17/2012, Additional history exists Colonoscopy 08/11/2016 08/11/2015 Colorectal Cancer Screening 08/11/2016 Dilated Retinal Exam 02/24/2021 02/25/2020, 02/26/2017, 02/28/2016, Additional history exists RSV Vaccine (1 - Risk 60-74 years 1-dose series) 2024 HbA1C 06/29/2025 12/30/2024, 02/0 02/2025, 07/08/2024, Additional history exists LDL Cholesterol 12/30/2025 12/30/2024, 10/0 11/2015, 02/03/2016, Additional history exists Urine Albumin:Creatinine Ratio 12/30/2025 0 12/30/2024, 11/16/2022, 08/03/2016, Additional history exists Pneumococcal Vaccine: 50+ (3 of 3 - PCV20 or PCV21) 05/21/2026 05/21/2021, 02/25/2019 Prostate Cancer Screening Discussion 06/09/2029 06/09/2024, 06/20/2022 DTaP,Tdap,Td Vaccine (2 - Td or Tdap) 10/07/2034 10/07/2024 Shingrix Vaccine Completed 04/15/2023, 08/10/2022 Influenza Vaccine Completed 08/31/2024, , 08/03/2022, Additional history exists Covid-19 Vaccine Completed 10/07/2024, , 08/10/2022, Additional history exists Procedures Procedure Name Priority Date/Time Associated Diagnosis Comments GLUCOSE, BLOOD (POC) Routine 01/12/2025 10:25 AM EDT XR VERIFY LEVEL L-SPINE NB 01/12/2025 8:21 AM EDT XR LUMBAR SPECIFY 1V 01/12/2025 7:59 AM EDT INTUBATION Routine 01/12/2025 7:39 AM EDT LAMNOTMY INCL W/DCMPRSN NRV ROOT 1 INTRSPC LUMBR 01/12/2025 7:28 AM EDT Intervertebral disc disorder with radiculopathy of lumbar region GLUCOSE, BLOOD (POC) Routine 01/12/2025 6:34 AM EDT STAPHYLOCOCCUS AUREUS & MRSA SCREEN, PCR, NASAL Routine 12/30/2024 8:54 AM EST Pre-op evaluation COMPLETE BLOOD COUNT Routine 12/30/2024 8:54 AM EST Pre-op evaluation Mixed hyperlipidemia Type 1 diabetes mellitus with other specified complication (HCC) Primary hypertension Acquired hypothyroidism Moderate asthma without complication, unspecified whether persistent TSH BLD Routine 12/30/2024 8:54 AM EST Acquired hypothyroidism LIPID PANEL, FASTING Routine 12/30/2024 8:54 AM EST Mixed hyperlipidemia HEMOGLOBIN A1C Routine 12/30/2024 8:54 AM EST Diabetes mellitus type 1, controlled, insulin dependent (HCC) COMPREHENSIVE METABOLIC PANEL Routine 12/30/2024 8:54 AM EST Diabetes mellitus type 1, controlled, insulin dependent (HCC) ECG COMPLETE 12/30/2024 8:36 AM EST ECG COMPLETE Routine 12/30/2024 8:36 AM EST Pre-op evaluation Mixed hyperlipidemia Type 1 diabetes mellitus with other specified complication (HCC) Primary hypertension Acquired hypothyroidism Moderate asthma without complication, unspecified whether persistent ALBUMIN/CREATININE RATIO, URINE Routine 12/30/2024 7:30 AM EST Diabetes mellitus type 1, controlled, insulin dependent (HCC) from Last 3 Months Results * (ABNORMAL) GLUCOSE, BLOOD (POC) (01/12/2025 10:25 AM EDT) Only the most recent of2 resultswithin the time period is included. Pathologist [facility] Glucose, Point of Care 212(A) 74 - 99 mg/dL [facility] Comment: Location:[facility], [address] [place] [address], formerly [facility] The Accu-Chek Inform II glucose meter has not been approved for testing on patients receiving intensive medical intervention or therapy and results from this point of care glucose test should not be used for patient management decisions in these cases. Inaccurate results may also occur from other interfering factors, such as N-acetylcysteine (blood concentrations of greater than 5mg/dL), galactose, extremes of hematocrit (<10 or >65), or high doses of ascorbic acid (vitamin C) greater than 3mg/dL. Consider alternate testing mechanisms (e.g. core lab, blood gas instrument) in the above situations. 01/12/2025 10:2 5 AM EDT us Maliha Berg MD POC TESTING Final Result [facility] POINT OF CARE [address] * XR VERIFY LEVEL L-SPINE NB (01/12/2025 8:21 AM EDT) Anatomical Region Laterality Modality Radiographic Rebecca ging 01/12/2025 8:21 AM EDT Impressions 01/12/2025 8:31 AM EDT IMPRESSION: OPERATIVE ASSESSMENT COMMUNICATION: Localization level(s) confirmed with: Dr. Berg on 01/12/2025 at 0820, via phone and Skype during the surgical procedure. Spanish Lecturer: CAM Transcribe Date/Time: Jan 12 2025 8:27A Dictated by : KENNEDY SCHMIDT MD This examination was interpreted and the report reviewed and electronically signed by: KENNEDY SCHMIDT MD on Jan 12 2025 8:29AM EST Narrative 01/12/2025 8:31 AM EDT * * *Final Report* * * DATE [...] responsible surgeon at the time of interpretation. Procedure Note Provider, [facility] [place] - 01/12/2025 * * *Final Report* * * DATE [...] responsible surgeon at the time of interpretation. IMPRESSION IMPRESSION: OPERATIVE ASSESSMENT COMMUNICATION: Localization level(s) confirmed with: Dr. Berg on 01/12/2025 at 0820, via phone and Skype during the surgical procedure. Spanish Lecturer: PSCB Transcribe Date/Time: Jan 12 2025 8:27A Dictated by : KENNEDY SCHMIDT MD This examination was interpreted and the report reviewed and electronically signed by: KENNEDY SCHMIDT MD on Jan 12 2025 8:29AM EST us Maliha Berg MD RAD-PAMA Final Result * XR LUMBAR SPECIFY 1V (01/12/2025 7:59 AM EDT) Anatomical Region Laterality Modality L-spine Radiographic Rebecca ging 01/12/2025 7:59 AM EDT Impressions 01/12/2025 8:31 AM EDT IMPRESSION: OPERATIVE ASSESSMENT COMMUNICATION: Localization level(s) confirmed with: Dr. Berg on 01/12/2025 at 0820, via phone and Skype during the surgical procedure. Spanish Lecturer: CAM Transcribe Date/Time: Jan 12 2025 8:27A Dictated by : KENNEDY SCHMIDT MD This examination was interpreted and the report reviewed and electronically signed by: KENNEDY SCHMIDT MD on Jan 12 2025 8:29AM EST Narrative 01/12/2025 8:31 AM EDT * * *Final Report* * * DATE [...] responsible surgeon at the time of interpretation. Procedure Note Provider, [facility] [place] - 01/12/2025 * * *Final Report* * * DATE [...] responsible surgeon at the time of interpretation. IMPRESSION IMPRESSION: OPERATIVE ASSESSMENT COMMUNICATION: Localization level(s) confirmed with: Dr. Berg on 01/12/2025 at 0820, via phone and Skype during the surgical procedure. Spanish Lecturer: PSCB Transcribe Date/Time: Jan 12 2025 8:27A Dictated by : KENNEDY SCHMIDT MD This examination was interpreted and the report reviewed and electronically signed by: KENNEDY SCHMIDT MD on Jan 12 2025 8:29AM EST Maliha Berg MD RAD-PAMA Final Result * Airway (01/12/2025 7:39 AM EDT) Narrative Yvon Koehler AA - 01/12/2025 7:39 AM EDT Yvon Koehler AA 01/12/2025 7:56 AM Airway General Information Procedure Start Time/Medication Administration: 01/12/2025 7:39 AM Procedure End Time: 01/12/2025 7:40 AM Patient location during procedure: OR Timeout Performed Pre-procedure: timeout performed Consent Obtained: Yes Patient identity confirmed: arm band and patient Staffing CAA: Yvon Koehler AA Performed by: CAA and anesthesiologist Indications and Patient Condition Indications for airway management: anesthesia Preoxygenated: yes anesthesia circuit Patient position: sniffing Method: asleep Cricoid Pressure: Yes Manual In-Line Stabilization: No Difficult Mask: No Airway Accessory: oral airway Final Airway Details Final airway type: endotracheal airway Final Endotracheal Airway: ETT Cuffed: yes Successful intubation technique: video laryngoscopy Devices used: VT Enterprise Endotracheal tube insertion site: oral Blade: Gaston Blade size: #3 ETT size (mm): 7.5 Measured from: lips Measurement (cm): 23 Placement verified by: chest auscultation and capnometry Cormack-Lehane Classification: grade I - full view of glottis Number of attempts at approach: 2 Ventilation between attempts: BVM Other Attempts Unsuccessful attempted endotracheal techniques: direct laryngoscopy Failed airway: no Difficult airway us Ruddy Landa MD ANESTHESIA ORDERABLES Final Resu lt * (ABNORMAL) STAPHYLOCOCCUS AUREUS & MRSA SCREEN, PCR, NASAL (12/30/2024 8:54 AM EST) Staphylococcus aureus DNA Methicillin-SUSC EPTIBLE Staphylococcus aureus Detected(A) Not Detected CEPHEID [employer]EXPERT COVID19 12/30/2024 4:37 PM EST [facility] Swab POSTERIOR NARES / Unknown Non Blood / Unknown 12/30/2024 8:54 AM EST 12/30/2024 8:54 AM EST Prabha Baker BLOOD BANK SUPERVISOR.[facility] CONSULT[facility] LABORATORY Final Resul t Performing Organization Address City/[facility]/ZIP Co de Phone Number [facility] [address] [place] [address], [place] * THYROID STIMULATING HORMONE (12/30/2024 8:54 AM EST) TSH 2.010 0.270 - 4.200 mIU/L 12/31/2024 12:24 AM EST [facility] Blood BLOOD SPECIMEN / Unknown Venipuncture / Unknown 12/30/2024 8:54 AM EST 12/30/2024 8:54 AM EST Glo Alan BLOOD BANK SUPERVISOR.[facility]ACLE ADF CONSULTANT LABORATORY Final Result Performing Organization Address City/[facility]/ZIP Co de Phone Number [facility] [address] [place] [address], [place] * (ABNORMAL) LIPID PANEL BASIC (12/30/2024 8:54 AM EST) Cholesterol, Total 202(H) <200 mg/dL 12/30/2024 10:21 AM [facility] Comment: <200 mg/dL, Desirable 200-239 mg/dL, Borderline high >239 mg/dL, High Triglyceride 187(H) <150 mg/dL 12/30/2024 10:21 AM [facility] Comment: <150 mg/dL, Normal 150-199 mg/dL, Borderline high 200-499 mg/dL, High >499 mg/dL, Very high HDL Cholesterol 61 >39 mg/dL 10:21 AM [facility] Comment: 40-59 mg/dL, Acceptable >59 mg/dL, High: Negative risk factor for coronary heart disease <40 mg/dL, Low: Positive risk factor for coronary heart disease Non HDL Cholesterol 141(H) <130 mg/dL 12/30/2024 10:21 AM [facility] Comment: <130 mg/dL, Optimal 130-159 mg/dL, Near optimal/above optimal 160-189 mg/dL, Borderline high 190-219 mg/dL, High >219 mg/dL, Very high Secondary prevention optimal non HDL Cholesterol levels are recommended to be <100 mg/dL Fasting Time 1 hrs 12/30/2024 10:21 AM EST [facility] VLDL Cholesterol 37(H) <30 mg/dL 12/30/19 10:21 AM EST [facility] TC:HDL Ratio 3.31 <5.10 12/30/2024 10:21 AM EST [facility] LDL Cholesterol, Calculated 104(H) <100 mg/dL 12/30/2024 10:21 AM [facility] Comment: <100 mg/dL, Optimal 100-129 mg/dL, Near optimal/above optimal 130-159 mg/dL, Borderline high 160-189 mg/dL, High >189 mg/dL, Very high Secondary prevention optimal LDL Cholesterol levels are recommended to be < 70 mg/dL LDL:HDL Ratio 1.70 <2.54 12/30/2024 10:21 AM EST [facility] Comment: Reference: 1. National Cholesterol Education Program ATP III Guideline At-A-Glance Quick Desk Reference: National Heart, Lung, and Blood [place]. National Institutes of Health. 2001: NIH Publication No. 01-3305. 2. An International Atherosclerosis Society position paper: global recommendations for the management of dyslipidemia: executive summary, Atherosclerosis. 2014: 232(2):410-413. Blood BLOOD SPECIMEN / Unknown Venipuncture / Unknown 12/30/2024 8:54 AM EST 12/30/2024 8:54 AM EST us Glo Alan APRN.[facility]LE ADF CONSULTANT LABORATORY Final Result [facility] [address] [place] [address], * (ABNORMAL) HEMOGLOBIN A1C (12/30/2024 8:54 AM EST) Hemoglobin A1C 7.2(H) 4.3 - 5.6 % 12/30/2024 10:32 AM EST [facility] Comment:[place] Diabetes [employer] sociation guidelines indicate that patients with HgbA1c in the range 5.7-6.4% are at increased risk for development of diabetes, and intervention by lifestyle modification may be beneficial. HgbA1c greater or equal to 6.5% is considered diagnostic of diabetes. Estimated Average Glucose 160 mg/dL 12/30/2024 10:32 AM EST [facility] Comment:eAG: (Estimated aver age glucose) is a calculated value from HgbA1c and is delivery representative of the average blood glucose level in the last 2-3 month period. Blood BLOOD SPECIMEN / Unknown Venipuncture / Unknown 12/30/2024 8:54 AM EST 12/30/2024 8:54 AM EST us Glo Alan BLOOD BANK SUPERVISOR.[facility] Final Result [facility] [address] [id number], * (ABNORMAL) COMPREHENSIVE METABOLIC PANEL (12/30/2024 8:54 AM EST) Protein, Total 6.9 6.3 - 8.0 g/dL 12/30/2024 10:21 AM EST [facility] Albumin 4.5 3.9 - 4.9 g/dL 12/30/2024 10:21 AM EST [facility] Calcium, Total 9.9 8.5 - 10.2 mg/dL 12/30/2024 10:21 AM EST [facility] Bilirubin, Total 0.3 0.2 - 1.3 mg/dL 12/30/2024 10:21 AM EST [facility] Alkaline Phosphatase 50 38 - 113 U/L 12/30/2024 10:21 AM EST [facility] AST 40 14 - 40 U/L 12/30/2024 10:21 AM EST [facility] ALT 61(H) 10 - 54 U/L 12/30/2024 10:21 AM EST [facility] Glucose 158(H) 74 - 99 mg/dL 12/30/2024 10:21 AM EST [facility] Comment: The [place] Diabetes Association (ADA) provides guidance for cutoff [...] Standards of Medical Care in Diabetes 2016, [place] [employer] Association. Diabetes Care. 2016.39(Suppl 1). BUN 13 9 - 24 mg/dL 12/30/2024 10:21 AM [facility] Creatinine 0.96 0.73 - 1.22 mg/dL 12/30/2024 10:21 AM [facility] Sodium 138 136 - 144 mmol/L 12/30/2024 10:21 AM [facility] Potassium 4.3 3.7 - 5.1 mmol/L 12/30/2024 10:21 AM [facility] Chloride 103 98 - 107 mmol/L 12/30/2024 10:21 AM [facility] CO2 30 22 - 30 mmol/L 12/30/2024 10:21 AM [facility] Anion Gap 5(L) 8 - 15 mmol/L 12/30/2024 10:21 AM [facility] Estimated Glomerular Filtration Rate 90 >=60 mL/min/1.7 3m 12/30/2024 10:21 AM [facility] Comment:Estimated Glomerular Filtration Rate (eGFR) is calculated using the 2020 CKD-EPI creatinine equation. This equation utilizes serum creatinine, sex, and age as parameters. The creatinine assay has traceable calibration to isotope dilution- mass spectrometry. Refer to KDIGO guidelines for clinical interpretation. In patients with unstable renal function, e.g. those with acute kidney injury, the eGFR may not accurately reflect actual GFR. Blood BLOOD SPECIMEN / Unknown Venipuncture / Unknown 12/30/2024 8:54 AM EST 12/30/2024 8:54 AM EST us Glo Alan BLOOD BANK SUPERVISOR.ORACLE ADF CONSULTANT LABORATORY Final Result Performing Organization Address City/State/[facility] Co de Phone Number [facility] [address] [place] [address], * (ABNORMAL) COMPLETE BLOOD COUNT (12/30/2024 8:54 AM EST) WBC 7.07 3.70 - 11.00 k/uL 12/30/2024 2:39 PM EST [facility] RBC 3.90(L) 4.20 - 6.00 m/uL 12/30/2024 2:39 PM EST [facility] Hemoglobin 11.9(L) 13.0 - 17.0 g/dL 12/30/2024 2:39 PM EST [facility] Hematocrit 35.2(L) 39.0 - 51.0 % 12/30/2024 2:39 PM EST [facility] MCV 90.3 80.0 - 100.0 fL 12/30/2024 2:39 PM EST [facility] MCH 30.5 26.0 - 34.0 pg 12/30/2024 2:39 PM EST [facility] MCHC 33.8 30.5 - 36.0 g/dL 12/30/2024 2:39 PM EST [facility] RDW-CV 12.6 11.5 - 15.0 % 12/30/2024 2:39 PM EST [facility] Platelet Count 247 150 - 400 k/uL 12/30/2024 2:39 PM EST [facility] MPV 10.2 9.0 - 12.7 fL 12/30/2024 2:39 PM EST [facility] Absolute nRBC <0.01 <0.01 k/uL 12/30/2024 2:39 PM [facility] Blood BLOOD SPECIMEN / Unknown Venipuncture / Unknown 12/30/2024 8:54 AM EST 12/30/2024 8:54 AM EST Prabha Baker BLOOD BANK SUPERVISOR.ORACLE ADF CONSULTANT LABORATORY Final Resul t [facility] [address] [facility] [address] [place] [address], * ECG COMPLETE (12/30/2024 8:36 AM EST) Ventricular Rate 62 BPM [facility] Atrial Rate 62 BPM [facility] P-R Interval 132 ms [facility] QRS Duration 104 ms [facility] QT Interval 412 ms [facility] QTC Calculation (Bazett) 418 ms [facility] Calculated P [place] 65 degrees [facility] Calculated R [place] 39 degrees [facility] Calculated T [place] 48 degrees [facility] 12/30/2024 8:36 AM EST Impressions [facility] - 01/02/2025 6:21 PM EST NORMAL SINUS RHYTHM NORMAL ECG Confirmed by NEMO THOMPSON M.D. ([id number]) on 01/02/2025 6:21:58 PM Narrative [facility] - 01/02/2025 6:21 PM EST NAME : JARETH LANTIGUA PID : [id number] : 1965 Gender : Male Race : ORD : [id number] Procedure Date : Dec 30 2024 08:36:05 Edit Date : Jan 02 2025 18:21:58 Diagnosis: NORMAL SINUS RHYTHM NORMAL ECG Confirmed by NEMO THOMPSON M.D. ([id number]) on 01/02/2025 6:21:58 PM Test Reason : PRE OP Location : 545 : [facility] Overread By : NEMO THOMPSON M.D. Edited By : NEMO THOMPSON M.D. Referred By : MALIHA BERG Acquired by : PATRICK, us Prabha Baker APRN.ORACLE ADF CONSULTANT EKG Final Resul t Performing Organization Address [facility] Co de Phone Number [facility] [address] [phone] * ALBUMIN/CREATININE RATIO, URINE (12/30/2024 7:30 AM EST) Creatinine, Ur Random (UCRR) 38.0 20.0 - 300.0 mg/dL 12/30/2024 10:14 AM EST [facility] Albumin, Urine Random <7.0 0.0 - 20.0 mg/L 12/30/2024 10:14 AM EST [facility] Albumin/Creat Ratio 12/30/2024 10:14 AM EST [facility] Comment: Not calculated Adult Male and Female Nephrotic Criteria: <30 mg/g is considered normal to mildly increased 30-300 mg/g is considered moderately increased >300 mg/g is considered severely increased KDIGO. (2013). KDIGO 2012 Clinical Practice Guideline for the Evaluation and Management of Chronic Kidney Disease. Official Journal of the International Society of Nephrology, 3(1), 1-150. Urine URINE SPECIMEN / Unknown Non Blood / Unknown 12/30/2024 7:30 AM EST 12/30/2024 9:21 AM EST us Glo Alan APRN.[facility] Final Result [facility] [place] [address], from Last 3 Months Insurance [facility] Care Teams Pillowcase Turner Relationship Specialty Start Date End Date Joseph Araya Jr., DO [address] [place] [address] [place] [phone] PCP - General 10/12/07
== END 2025-03-25 16:38 | disposition home or self-care (01) ==
LOC: RAD 16:37
PROVIDERS: PCP Family Medicine
DX: M25.552 Pain in left hip (principal)
CPT/HCPCS: 73502

== ENCOUNTER 2025-05-28 10:48 | Outpatient (OUT) | payer OTHER, SELFPAY ==
--- OUTSIDE RECORDS SUMMARY | 2025-05-28 10:52 | XMS_ITS | Encounter Summary ---
Author Organization [facility] Address [address] [place] [address] Care Team Providers Care Lead Developer Name Role Phone Joseph Araya DO Primary Care Provider [phone] Joseph Araya DO Unavailable [phone] Encounter Details Date Type Department Care Team (Late st Contact Info) Description 03/31/2023 Abstract [facility] [address] [place] [address] Vidhya Cueto MD [address] [facility] [address] [place] [address] Social History Tobacco Use Types [...] on filedocumented in this encounter Care Teams Lead Developer Relationship Specialty Start Date End Date Joseph Araya DO [address] [place] [address] PCP - General Family Medicine 04/02/23 Joseph Araya DO [address] [facility] [address] [place] [address] PCP - Medical [place] [employer] 05/03/14 11/02/99 documented as of this encounter
--- OUTSIDE RECORDS SUMMARY | 2025-05-28 10:52 | XMS_ITS | Encounter Summary ---
Author Organization [facility] Address [address] [place] [address] Care Team Providers Care Vamp Liner Name Role Phone Quiana Mckeon DO, George Robert Primary Care Provi clemente Source Comments In the event this information is protected by the Federal Confidentiality of Alcohol and Drug AbusePatient Records regulations: The Federal rules restrict any use of the information to criminally investigate or prosecute any alcohol or drug abuse patient.[facility] Encounter Details Date Type Department Care Team ([facility] Contact Info) Description 10/31/2023 Patient Msg Family Medicine [address] [id number] Provider, Ccf Appointment cancelled Social History Tobacco [...] is lower risk 8 06/17/2023 Data from: https://www.neighborhoodatlas.medicine.[facility].edu/. Last address used for calculation [address] [place] [address] 06/17/2023 Sex and Gender Information Value Date [...] Upcoming Encounters Date Type Department Care Team (Late st Contact Info) Description 06/06/2025 3:00 PM EDT Office Visit Endocrinology [address] [place] [address] Glo Alan APRN.SPEECH PATHOLOGY SUPERVISOR [address] [facility] [place] [address] see CHRISTINA Vargas 6 months 08/11/2025 2:40 PM EDT Office Visit Spine [place] [address] [place] [address] [place] [address] [place], [place] [phone] 6 MONTH FOLLOW UP 12/07/2025 3:40 PM EST Office Visit Endocrinology [address] [place], [place] [phone] Bernardino Villagomez, DO [address] [place], [place] [phone] [place] in one year. documented as of this encounter Visit Diagnoses Not on filedocumented in this encounter Care Teams Vamp Liner Relationship Specialty Start Date End Date Joseph Araya Jr., DO [address] [place] [address] PCP - General 10/12/07 documented as of this encounter
--- OUTSIDE RECORDS SUMMARY | 2025-05-28 10:52 | XMS_ITS | Encounter Summary ---
Author Organization [facility] Address [address] [place] [address] Care Team Providers Care Manager Brand Name Role Phone Quiana Mckeon DO, George Robert Primary Care Provi clemente Source Comments In the event this information is protected by the Federal Confidentiality of Alcohol and Drug AbusePatient Records regulations: The Federal rules restrict any use of the information to criminally investigate or prosecute any alcohol or drug abuse patient.[facility] Encounter Details Date Type Department Care Team (Late st Contact Info) Description 06/18/2024 [place] [address] Provider, Ccf Financial Clearance Social History Tobacco [...] risk 8 06/17/2023 Data from: https://www.neighborhoodatlas.medicine.[facility].edu/. Last address used for calculation [address] [place] [address] 06/17/2023 Sex and Gender Information Value Date [...] PM EDT Office Visit Endocrinology [address] [place] [address] Glo Alan, THERMODYNAMICS ENGINEER.BILINGUAL NANNY [address] [place] [address] see CHRISTINA Vargas 6 months 08/11/2025 2:40 PM EDT Office Visit Spine [place] [address] [facility] [place] [address] [place] [address] [place] [address] 6 MONTH FOLLOW UP 12/07/2025 3:40 PM EST Office Visit Endocrinology [address] [place] [place] [address] Bernardino Villagomez, DO [address] [place], [place] [phone] [place] in one year. documented as of this encounter Visit Diagnoses Not on filedocumented in this encounter Care Teams Manager Brand Relationship Specialty Start Date End Date Joseph Araya Jr., [address] [place] [address] PCP - General 10/12/07 documented as of this encounter
--- OUTSIDE RECORDS SUMMARY | 2025-05-28 10:52 | XMS_ITS | Encounter Summary ---
Author Organization [facility] Address [address] [place] [address] Care Team Providers Care Dental Office Receptionist Name Role Phone Quiana Mckeon DO, George Robert Primary Care Provi clemente Source Comments In the event this information is protected by the Federal Confidentiality of Alcohol and Drug AbusePatient Records regulations: The Federal rules restrict any use of the information to criminally investigate or prosecute any alcohol or drug abuse patient.[facility] Encounter Details Date Type Department Care Team (Late st Contact Info) Description 01/14/2025 Get Medical Advice Spine [place] [address] [facility] [place], [place] [phone] [place] [address] [place], [place] [phone] Calf muscle spasms Social History Tobacco Use [...] lower risk 8 06/17/2023 Data from: https://www.neighborhoodatlas.[facility]/. Last address used for calculation [address] [...] 3:00 PM EDT Office Visit Endocrinology [address] [place] [address] Glo Alan APRN.MID LEVEL BUSINESS ANALYST [address] [place] [address] see CHRISTINA Vargas 6 months 08/11/2025 2:40 PM EDT Office Visit Spine [place] [address] [place] [address] [place] [address] [place] [address] 6 MONTH FOLLOW UP 12/07/2025 3:40 PM EST Office Visit Endocrinology [address] [place] [address] Bernardino Villagomez, [address] [place] [address] or in one year. documented as of this encounter Visit Diagnoses Diagnosis S/P lumbar spine operation- Primary Other postprocedural status documented in this encounter Care Teams Dental Office Receptionist Relationship Specialty Start Date End Date Joseph Araya Jr., [address] [place] [address] PCP - General 10/12/07 documented as of this encounter
--- OUTSIDE RECORDS SUMMARY | 2025-05-28 10:52 | XMS_ITS | Encounter Summary ---
Author Organization [facility] Address [address] [place] [address] Care Team Providers Care Stock Parts Fabricator Name Role Phone Joseph Araya DO Primary Care Provider [phone] Joseph Araya DO Unavailable [phone] Encounter Details Date Type Department Care Team (Late st Contact Info) Description 06/21/2024 Abstract [facility] [address] [facility] [address] [place] [phone] Joseph Araya DO [address] [facility] [address] [place] [address] Social History Tobacco Use Types Packs/Day Years [...] often do you attend chur ch or orthodoxy services? More than 4 times per year 01/07/2024 Do you belong to any clubs o r organizations such as sabianist groups, unions, fraternal or athletic groups, or [...] Recorded Patient Health Questionnaire-2 Score 0 06/09/2024 [facility] - Occupational Stress Questionnaire Answer Date [...] place to sleep or slept in a penitentiary (including now)? Patient declined 01/07/2024 Sex and Gender Information Value Date Recorded Sex Assigned at Not on file Legal Sex Male 6:52 PM EDT Gender Identity Not on file Sexual Orientation Not on file documented as of this encounter Plan of Treatment Not on file documented as of this encounter Visit Diagnoses Not on filedocumented in this encounter Care Teams Stock Parts Fabricator Relationship Specialty Start Date End Date Joseph Araya DO [address] [place] [address] PCP - General Family Medicine 04/02/23 Joseph Araya DO [address] [place] [address] PCP - Medical [place] [employer] 05/03/14 11/02/99 documented as of this encounter
--- OUTSIDE RECORDS SUMMARY | 2025-05-28 10:52 | XMS_ITS | Clinical Summary ---
Author Organization [facility] Address [address] [place] [address] Phone Care Team Providers Care Manager Construction Name Role Phone Joseph Araya DO Primary Care Provider [phone] Social History Tobacco Use Types Packs/Day Years Used Date Smoking Tobacco: Never Assessed Sex and Gender Information Value Date Recorded Sex Assigned at Not on file Legal Sex Male 3:28 PM EST Gender Identity Not on file Sexual Orientation Not on file Plan of Treatment Not on file Care Teams Manager Construction Relationship Specialty Start Date End Date Joseph Araya DO [address] [facility] [address] [place] [address] PCP - General 11/03/17
--- OUTSIDE RECORDS SUMMARY | 2025-05-28 10:52 | XMS_ITS | Encounter Summary ---
Author Organization [facility] Address [address] [place] [address] [place] [address] Care Team Providers Care Supervisor Stone Name Role Phone Joseph Araya DO Primary Care Provider [phone] Joseph Araya DO Unavailable [phone] Encounter Details Date Type Department Care Team (Late st Contact Info) Description 06/06/2023 Orders Only [facility] [address] [facility] [address] [place] [address] A, Unknown Practice [address] [phone] Social History Tobacco Use Types Packs/Day Years [...] on filedocumented in this encounter Care Teams Supervisor Stone Relationship Specialty Start Date End Date Joseph Araya DO [address] [place] [address] PCP - General Family Medicine 04/02/23 Joseph Araya DO [address] [place] [address] PCP - Medical [place] Commercial 05/03/14 11/02/99 documented as of this encounter
--- OUTSIDE RECORDS SUMMARY | 2025-05-28 10:52 | XMS_ITS | Clinical Summary ---
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 4 Active methocarbamol (ROBAXIN) 750 mg tabletIndication s:S/P lumbar spine operation Take 1 tablet by mouth three times a day. 60 tablet 5 Active JOURNAVX 50 mg tablet Take 1 tablet by mouth every 12 hours. 5 Active Active Problems Problem Noted Date Diagnosed [...] with Dr. Alicja Villagomez ( Endocrinology , [facility] 12/07/2024) 12/07/2024 HgbA1c 7.1 % ; reports FBG 114 Hx diabetic retinopathy Resolved Problems Problem Noted Date Diagnosed Date Resolved Date Diabetes mellitus type 1, un controlled, without complications 02/13/2016 11/27/2018 Adult onset hypothyroidism 02/13/2016 0 11/27/2018 acquired hypothyroidism 03/05/201111/04 ABNORMAL THYROID FUNCT STUDY (neg MCAB) 02/03/2006 11/27/2018 Encounters Date Type Department Care Team Description 05/16/2025 Telephone Neurology [address] [place] [address] Maliha Chacko MD Results - Mri 05/05/2025 9:53 AM EDT - 05/05/2025 11:59 PM EDT Hospital Encounter [facility] Radiology General [address] [place] [address] Chronic bilateral low back pain with left-sided sciatica [G89.29, M54.42] Discharge Disposition: Home 05/05/2025 9:40 AM EDT Office Visit [facility] [place] [address] [place] [address] Maliha Chacko MD Chronic bilateral low back pain with left-sided sciatica (Primary Dx) 05/05/2025 Travel 04/27/2025 5:15 PM EDT OT/PT/Speech Visit [facility] [address] [place] [address] Chery Layton, PT Chronic midline low back pain without sciatica (Primary Dx) 04/27/2025 Travel 04/11/2025 5:15 PM EDT OT/PT/Speech Visit [facility] [address] [facility] [place] [address] Chery Layton, PT Chronic midline low back pain without sciatica (Primary Dx) 04/11/2025 Travel 04/01/2025 Telephone Neurology [address] [place] [address] Maliha Chacko MD Results 03/23/2025 Telephone Neurology [address] [place] [address] Maliha Chacko MD Severe Pain 03/16/2025 5:00 PM EDT OT/PT/Speech Visit [facility] [address] [facility] [place] [address] Damien Velez SHOP REPAIRER Chronic midline low back pain without sciatica (Primary Dx); Chronic bilateral low back pain with left-sided sciatica 03/16/2025 Travel 03/09/2025 5:00 PM EDT OT/PT/Speech Visit [facility] [address] [place] [address] Damien Velez PTA Chronic midline low back pain without sciatica (Primary Dx); Chronic bilateral low back pain with left-sided sciatica 03/09/2025 Travel 03/07/2025 Telephone Neurology [address] [place] [address] Maliha Chacko MD Medication Request 03/01/2025 1:00 PM EDT OT/PT/Speech Visit [facility] [address] [place] [address] Chery Layton, PT Chronic midline low back pain without sciatica (Primary Dx); Chronic bilateral low back pain with left-sided sciatica 03/01/2025 Travel from Last 3 Months Family History Medical [...] risk 8 06/17/2023 Data from: https://www.neighborhoodatlas.medicine.[facility].edu/. Last address used for calculation [address] [facility] 06/17/2023 Sex and Gender Information Value Date [...] Visit Endocrinology [address] [facility] [place] [address] Glo Alan APRN.FRENCH EDGE OPERATOR [address] [facility] [place] [address] see FRENCH EDGE OPERATOR in [place] 6 months 08/11/2025 2:40 PM EDT Office Visit [facility] [place] [address] [place] [address] [place] [address] [place] [address] 6 MONTH FOLLOW UP 12/07/2025 3:40 PM EST Office Visit Endocrinology [address] [place] [address] Bernardino Villagomez DO [address] [facility] [place] [address] me in one year. Health Maintenance Due Date Last Done Comments Annual PCP Team Chronic Dise ase Visit 1982 Anxiety Screening 1982 Depression Screening 1982 HIV Screening 1982 [...] years 1-dose series) 2024 HbA1C 06/29/2025 12/30/2024, 02/2025, 07/08/2024, Additional history exists Influenza Vaccine (#1) 2025 , 08/02/2023, 08/03/2022, Additional history exists LDL Cholesterol 12/30/2025 12/30/2024, 11/2015, 02/03/2016, Additional history exists Urine Albumin:Creatinine Ratio 12/30/2025 0 12/30/2024, 11/16/2022, 08/03/2016, Additional history exists Pneumococcal Vaccine: 50+ (3 of 3 - PCV20 or PCV21) 05/21/2026 05/21/2021, 02/25/2019 Prostate Cancer Screening Discussion 06/09/2029 06/09/2024, 06/20/2022 DTaP,Tdap,Td Vaccine (2 - Td or Tdap) 10/07/2034 10/07/2024 Shingrix Vaccine Completed 04/15/2023, 08/10/2022 Procedures Procedure Name Priority Date/Time Associated Diagnosis Comments XR OUTSIDE CD DICOM IMPORT 05/16/2025 MRI OUTSIDE CD DICOM IMPORT 05/16/2025 XR LUMBAR MOTION 4V AP/LAT/ FLEX/EXT Routine 05/05/2025 10:31 AM EDT Chronic bilateral low back pain with left-sided sciatica EXTERNAL IMAGING 04/01/2025 1:30 PM EDT XR OUTSIDE CD DICOM IMPORT 03/25/2025 HEMOGLOBIN A1C Routine 12/30/2024 8:54 AM EST Diabetes mellitus type 1, controlled, insulin dependent (HCC) LIPID PANEL, FASTING Routine 12/30/2024 8:54 AM EST Mixed hyperlipidemia ALBUMIN/CREATININE RATIO, URINE Routine 12/30/2024 7:30 AM EST Diabetes mellitus type 1, controlled, insulin dependent (HCC) from Last 3 Months or Most Recently Relevant to Health Maintenance Results * CR-XR pre/post mri xray IMPORT (05/16/2025) Anatomical Region Laterality Modality Other 05/16/2025 Narrative 05/17/2025 1:08 AM EDT Images were obtained outside of [facility] Procedure Note Provider, [facility] [place] - 05/17/2025 Images were obtained outside of [facility] Provider RADIOLOGY Final Result * MR-MR lumbar spine wo/w con IMPORT (05/16/2025) Anatomical Region Laterality Modality Other 05/16/2025 Narrative 05/17/2025 1:07 AM EDT Images were obtained outside of [facility] Procedure Note Provider, [facility] [place] - 05/17/2025 Images were obtained outside of [facility] Cc Provider MRI Final Result * XR LUMBAR MOTION 4V AP/LAT/ FLEX/EXT (05/05/2025 10:31 AM EDT) Anatomical Region Laterality Modality L-spine Other 05/05/2025 10:3 1 AM EDT Impressions 05/05/2025 10:29 PM EDT IMPRESSION: Mild degenerative changes in the lower lumbar spine. Talent Acquisition Assistant: CAM Transcribe Date/Time: May 05 2025 10:08P Dictated by : ANA ROCHE DO This examination was interpreted and the report reviewed and electronically signed by: ANA ROCHE DO on May 05 2025 10:26PM EST Narrative 05/05/2025 10:29 PM EDT * * *Final Report* * * DATE OF EXAM: May 05 2025 10:31AM [id number] - XR LUMBAR 4V AP/LAT/ FLEX/EXT / PROCEDURE REASON: multiple diagnoses * * * * Physician Interpretation * * * * EXAMINATION: XR LUMBAR 4V AP/LAT/ FLEX/EXT CLINICAL HISTORY: Pain. Chronic bilateral low back pain with left-sided sciatica Technique: XR LUMBAR 4V AP/LAT/ FLEX/EXT Comparison: 01/12/2025 RESULT: Grade 1 anterolisthesis L4-L5. Vertebral body heights are maintained. Mild disc space narrowing L5-S1. Facet arthropathy in the lower lumbar spine. Small sacroiliac joint osteophytes. Nonobstructive bowel gas pattern. Procedure Note Provider, [facility] [place] - 05/05/2025 * * *Final Report* * * DATE OF EXAM: May 05 2025 10:31AM [id number] - XR LUMBAR 4V AP/LAT/ FLEX/EXT / PROCEDURE REASON: multiple diagnoses * * * * Physician Interpretation * * * * EXAMINATION: XR LUMBAR 4V AP/LAT/ FLEX/EXT CLINICAL HISTORY: Pain. Chronic bilateral low back pain with left-sided sciatica Technique: XR LUMBAR 4V AP/LAT/ FLEX/EXT Comparison: 01/12/2025 RESULT: Grade 1 anterolisthesis L4-L5. Vertebral body heights are maintained. Mild disc space narrowing L5-S1. Facet arthropathy in the lower lumbar spine. Small sacroiliac joint osteophytes. Nonobstructive bowel gas pattern. IMPRESSION IMPRESSION: Mild degenerative changes in the lower lumbar spine. Talent Acquisition Assistant: CAM Transcribe Date/Time: May 05 2025 10:08P Dictated by : ANA ROCHE DO This examination was interpreted and the report reviewed and electronically signed by: ANA ROCHE DO on May 05 2025 10:26PM EST Maliha Chacko MD RAD-PAMA Final Result * EXTERNAL IMAGING (04/01/2025 1:30 PM EDT) Anatomical Region Laterality Modality Other External Provider PA-C RADIOLOGY Final Res ult * OT-XR HIP LT 2V W/ PELVIS IMPORT (03/25/2025) Anatomical Region Laterality Modality Other 03/25/2025 Narrative 03/29/2025 10:12 PM EDT Images were obtained outside of [facility] Procedure Note Provider, [facility] [place] - 03/29/2025 Images were obtained outside of [facility] us [facility] Provider RADIOLOGY Final Result * (ABNORMAL) LIPID PANEL BASIC (12/30/2024 8:54 AM EST) Cholesterol, Total 202(H) <200 mg/dL 12/30/2024 10:21 AM [facility] Comment: <200 mg/dL, Desirable 200-239 mg/dL, Borderline high >239 mg/dL, High Triglyceride 187(H) <150 mg/dL 12/30/2024 10:21 AM [facility] Comment: <150 mg/dL, Normal 150-199 mg/dL, Borderline high 200-499 mg/dL, High >499 mg/dL, Very high HDL Cholesterol 61 >39 mg/dL 10:21 AM [facility] Comment: 40-59 mg/dL, Acceptable >59 mg/dL, High: Negative risk factor for coronary heart disease <40 mg/dL, Low: Positive risk factor for coronary heart disease Non HDL Cholesterol 141(H) <130 mg/dL 12/30/2024 10:21 AM [facility] Comment: <130 mg/dL, Optimal 130-159 mg/dL, Near optimal/above optimal 160-189 mg/dL, Borderline high 190-219 mg/dL, High >219 mg/dL, Very high Secondary prevention optimal non HDL Cholesterol levels are recommended to be <100 mg/dL Fasting Time 1 hrs 12/30/2024 10:21 AM [facility] VLDL Cholesterol 37(H) <30 mg/dL 12/30/19 10:21 AM [facility] TC:HDL Ratio 3.31 <5.10 12/30/2024 10:21 AM [facility] LDL Cholesterol, Calculated 104(H) <100 mg/dL 12/30/2024 10:21 AM EST [facility] Comment: <100 mg/dL, Optimal 100-129 mg/dL, Near optimal/above optimal 130-159 mg/dL, Borderline high 160-189 mg/dL, High >189 mg/dL, Very high Secondary prevention optimal LDL Cholesterol levels are recommended to be < 70 mg/dL LDL:HDL Ratio 1.70 <2.54 12/30/2024 10:21 AM EST [facility] Comment: Reference: 1. National Cholesterol Education Program ATP III Guideline At-A-Glance Quick Desk Reference: National Heart, Lung, and Blood [place]. National Institutes of Health. 2001: NIH Publication No. 01-3305. 2. An International Atherosclerosis Society position paper: global recommendations for the management of dyslipidemia: executive summary, Atherosclerosis. 2014: 232(2):410-413. Blood BLOOD SPECIMEN / Unknown Venipuncture / Unknown 12/30/2024 8:54 AM EST 12/30/2024 8:54 AM EST Glo Alan APRN.[facility] Final Result [facility] [id number], * (ABNORMAL) HEMOGLOBIN A1C (12/30/2024 8:54 AM EST) Hemoglobin A1C 7.2(H) 4.3 - 5.6 % 12/30/2024 10:32 AM EST [facility] Comment:[place] Diabetes As sociation guidelines indicate that patients with HgbA1c in the range 5.7-6.4% are at increased risk for development of diabetes, and intervention by lifestyle modification may be beneficial. HgbA1c greater or equal to 6.5% is considered diagnostic of diabetes. Estimated Average Glucose 160 mg/dL 12/30/2024 10:32 AM EST [facility] Comment:eAG: (Estimated aver age glucose) is a calculated value from HgbA1c and is player services representative of the average blood glucose level in the last 2-3 month period. Blood BLOOD SPECIMEN / Unknown Venipuncture / Unknown 12/30/2024 8:54 AM EST 12/30/2024 8:54 AM EST Glo Alan APRN.CNP LABORATORY Final Result Performing Organization Address City/[facility]/ZIP Co de Phone Number [facility] [address] [place] [address], * ALBUMIN/CREATININE RATIO, URINE (12/30/2024 7:30 AM EST) Pathologist [facility] Creatinine, Ur Random (UCRR) 38.0 20.0 - 300.0 mg/dL 12/30/2024 10:14 AM EST [facility] Albumin, Urine Random <7.0 0.0 - 20.0 mg/L 12/30/2024 10:14 AM EST [facility] Albumin/Creat Ratio 12/30/2024 10:14 AM EST [facility] Comment: Not calculated Adult Male and [...] 7:30 AM EST 12/30/2024 9:21 AM EST Glo Alan APRN.CNP LABORATORY Final Result Performing Organization Address City/[facility]/ZIP Co de Phone Number [facility] [address] [place] [address], from Last 3 Months or Most Recently Relevant to Health Maintenance [facility] Care Teams Head Refrigeration Engineer Relationship Specialty Start Date End Date Joseph Araya Jr., [address] [place] [address] PCP - General 10/12/07
--- OUTSIDE RECORDS SUMMARY | 2025-05-28 10:52 | XMS_ITS | Encounter Summary ---
Author Organization [facility] Address [address] [place] [address] [address] Care Team Providers Care Well Drill Operator Cable Tool Name Role Phone Joseph Araya DO Primary Care Provider [phone] Joseph Araya DO Unavailable [phone] Encounter Details Date Type Department Care Team (Late st Contact Info) Description 06/20/2023 Orders Only [facility] [place] [facility] [address] [place] [phone] A, Unknown Practice [address] [phone] Social History Tobacco Use Types Packs/Day Years [...] on filedocumented in this encounter Care Teams Well Drill Operator Cable Tool Relationship Specialty Start Date End Date Joseph Araya DO [address] [place] [address] PCP - General Family Medicine 04/02/23 Joseph Araya DO [address] [place] [address] PCP - Medical [employer] [employer] 05/03/14 11/02/99 documented as of this encounter
--- OUTSIDE RECORDS SUMMARY | 2025-05-28 10:52 | XMS_ITS | Encounter Summary ---
Author Organization [facility] Address [address] [place] [address] Care Team Providers Care Acoustics Teacher Name Role Phone Quiana Mckeon DO, George Robert Primary Care Provi clemente Source Comments In the event this information is protected by the Federal Confidentiality of Alcohol and Drug AbusePatient Records regulations: The Federal rules restrict any use of the information to criminally investigate or prosecute any alcohol or drug abuse patient.[facility] Reason for Visit * Reason Onset Date Comments Refill Request 01/26/2025 Encounter Details Date Type Department Care Team (Late st Contact Info) Description 01/26/2025 Refill Neurosurgery [address] [place] [phone] [place] [address] [address] [place], [place] [phone] Refill Request Social History Tobacco Use Types [...] is lower risk 8 06/17/2023 Data from: https://www.neighborhoodatlas.[facility]/. Last address used for calculation [...] 3:00 PM EDT Office Visit Endocrinology [address] [place] [address] Glo Alan APRN.DRILLER HAND [address] [address] see DRILLER HAND in [place] 6 months 08/11/2025 2:40 PM EDT Office Visit [facility] [place] [address] [place] [address] [place] [address] [place] [address] 6 MONTH FOLLOW UP 12/07/2025 3:40 PM EST Office Visit Endocrinology [address] [address] Bernardino Villagomez DO [address] [place] [address] ar in one year. documented as of this encounter Visit Diagnoses Diagnosis Radiculopathy, lumbar region Thoracic or lumbosacral neuritis or radiculitis, unspecified documented in this encounter Care Teams Acoustics Teacher Relationship Specialty Start Date End Date Joseph Araya Jr., DO [address] [facility] [address] PCP - General 10/12/07 documented as of this encounter
--- OUTSIDE RECORDS SUMMARY | 2025-05-28 10:52 | XMS_ITS | Encounter Summary ---
Author Organization [facility] Address [address] [place] [address] Care Team Providers Care Computer Publisher Name Role Phone Quiana Mckeon DO, George Robert Primary Care Provi clemente Source Comments In the event this information is protected by the Federal Confidentiality of Alcohol and Drug AbusePatient Records regulations: The Federal rules restrict any use of the information to criminally investigate or prosecute any alcohol or drug abuse patient.[facility] Encounter Details Date Type Department Care Team ([facility] st Contact Info) Description 12/29/2024 Patient Msg [facility] [place] [address] [place] [address] Provider, [facility] Important Reminder for [...] is lower risk 8 06/17/2023 Data from: https://www.neighborhoodatlas.medicine.[facility].edu/. Last address used for calculation [facility] Don 06/17/2023 Sex and Gender Information [...] PM EDT Office Visit Endocrinology [address] [place] [address] Glo Alan APRN.VIDEO GAME ANIMATOR [address] [facility] [place] [address] see CHRISTINA [place] 6 months 08/11/2025 2:40 PM EDT Office Visit [facility] [place] [address] [place] [address] [place] [address] [place] [address] 6 MONTH FOLLOW UP 12/07/2025 3:40 PM EST Office Visit Endocrinology [address] [place], [place] [phone] Bernardino Villagomez, DO [address] [place], [place] [phone] [place] in one year. documented as of this encounter Visit Diagnoses Not on filedocumented in this encounter Care Teams Computer Publisher Relationship Specialty Start Date End Date Joseph Araya Jr., DO [address] [place] [phone] PCP - General 10/12/07 documented as of this encounter
--- OUTSIDE RECORDS SUMMARY | 2025-05-28 10:52 | XMS_ITS | Encounter Summary ---
Author Organization [facility] Address [address] [place] [address] Care Team Providers Care Final Inspector Paper Name Role Phone Quiana Mckeon DO, George Robert Primary Care Provi clemente Source Comments In the event this information is protected by the Federal Confidentiality of Alcohol and Drug AbusePatient Records regulations: The Federal rules restrict any use of the information to criminally investigate or prosecute any alcohol or drug abuse patient.[facility] Encounter Details Date Type Department Care Team (Late st Contact Info) Description 01/11/2025 Patient Msg [facility] [place] [address] [place] [phone] Provider, [facility]cf ACTION REQUIRED: Skin Preparation before [...] health system.edu/. Last address used for calculation [address] [...] PM EDT Office Visit Endocrinology [address] [place] [address] Glo Alan, JANIE.PENCIL MAKER [address] [facility] [place] [address] see CHRISTINA [place] 6 months 08/11/2025 2:40 PM EDT Office Visit [facility] [place] [address] [place], [place] [id number] [place] [address] [place] [address] 6 MONTH FOLLOW UP 12/07/2025 3:40 PM EST Office Visit Endocrinology [address] [place] [address] Bernardino Villagomez, DO [address] [place], [place] [phone] me in one year. documented as of this encounter Visit Diagnoses Not on filedocumented in this encounter Care Teams Final Inspector Paper Relationship Specialty Start Date End Date Joseph Araya Jr., DO [address] [place] [address] PCP - General 10/12/07 documented as of this encounter
--- OUTSIDE RECORDS SUMMARY | 2025-05-28 10:52 | XMS_ITS | Encounter Summary ---
Author Organization [facility] Address [address] [place] [address] Care Team Providers Care Forming Roll Operator Heavy Duty Name Role Phone Quiana Mckeon DO, George Robert Primary Care Provi clemente Source Comments In the event this information is protected by the Federal Confidentiality of Alcohol and Drug AbusePatient Records regulations: The Federal rules restrict any use of the information to criminally investigate or prosecute any alcohol or drug abuse patient.[facility] Reason for Visit * Reason Comments Appointment Encounter Details Date Type Department Care Team (Late st Contact Info) Description 12/28/2024 Telephone [place] [address] [place] [address] [place] [address] [address] [place], [place] [phone] Appointment Social History Tobacco Use Types Packs/Day Years Used Date Smoking Tobacco: Former Cigarettes Smokeless Tobacco: Never Alcohol Use Standard Drinks/Week Comments Yes 0 (1 standard drink = 0.6 oz pur e alcohol) Area Deprivation Index Answer Date Masoud rded National Score (1-100), lower number is lower ri sk 86 06/17/2023 State Score (1-10), lower number is lower risk 8 06/17/2023 Data from: https://www.neighborhoodatlas.[facility]/. Last address used for calculation [address] [...] calling: self Call patient at: at home [phone] (home) [phone] (cell) Was an appointment scheduled: No Closing statement: Results or non-symptom based questions: Thank you for calling [facility], your call will be returned within the next business day. Jerry Chew documented in this encounter Plan of Treatment Upcoming Encounters Date Type Department Care Team (Late st Contact Info) Description 06/06/2025 3:00 PM EDT Office Visit Endocrinology [address] [place] [address] Glo Alan APRN.AUTOMOTIVE VEHICLE INSPECTOR [address] [facility] [address] [place] [address] see AUTOMOTIVE VEHICLE INSPECTOR in [place] 6 months 08/11/2025 2:40 PM EDT Office Visit [facility] [place] [address] [place] [address] [place] [address] [place] [address] 6 MONTH FOLLOW UP 12/07/2025 3:40 PM EST Office Visit Endocrinology [address] [place] [address] Bernardino Villagomez, [address] [place] [address] ct in one year. documented as of this encounter Visit Diagnoses Not on filedocumented in this encounter Care Teams Forming Roll Operator Heavy Duty Relationship Specialty Start Date End Date Joseph Araya Jr., [address] [place] [address] PCP - General 10/12/07 documented as of this encounter
--- OUTSIDE RECORDS SUMMARY | 2025-05-28 10:52 | XMS_ITS | Encounter Summary ---
Author Organization [facility] Address [address] [place] [address] Care Team Providers Care Senior Treasury Analyst Name Role Phone Quiana Mckeon DO, George Robert Primary Care Provi clemente Source Comments In the event this information is protected by the Federal Confidentiality of Alcohol and Drug AbusePatient Records regulations: The Federal rules restrict any use of the information to criminally investigate or prosecute any alcohol or drug abuse patient.[facility] Encounter Details Date Type Department Care Team ([facility] st Contact Info) Description 08/23/2024 Patient Msg [place] [place] [address] [place], [place] [phone] Provider, [place] [facility] Procedure Instructions 09/28/2024 Social [...] is lower risk 8 06/17/2023 Data from: https://www.neighborhoodatlas.medicine.[facility].edu/. Last address used for calculation [address] [place] [address] 06/17/2023 Sex and Gender Information Value Date [...] PM EDT Office Visit Endocrinology [address] [place] [address] Glo Alan APRN.ARTIFICIAL FLY TIER [address] [facility] [place] [address] see CHRISTINA Vargas 6 months 08/11/2025 2:40 PM EDT Office Visit [facility] [place] [address] [place] [address] [place] [address] [place], [place] [phone] 6 MONTH FOLLOW UP 12/07/2025 3:40 PM EST Office Visit Endocrinology [address] [place], [place] [phone] Bernardino Villagomez, DO [address] [place], [place] [phone] nv in one year. documented as of this encounter Visit Diagnoses Not on filedocumented in this encounter Care Teams Senior Treasury Analyst Relationship Specialty Start Date End Date Joseph Araya Jr., DO [address] [place] [address] PCP - General 10/12/07 documented as of this encounter
--- OUTSIDE RECORDS SUMMARY | 2025-05-28 10:52 | XMS_ITS | Encounter Summary ---
Author Organization [facility] Address [address] [place] [address] Care Team Providers Care Crozer Name Role Phone Joseph Araya DO Primary Care Provider [phone] Joseph Araya DO Unavailable [phone] Encounter Details Date Type Department Care Team (Late st Contact Info) Description 06/25/2024 External Result Encounter [facility] External Department Unsolicited Joseph Araya DO [address] [facility] [address] [place] [address] Social History Tobacco Use Types Packs/Day Years [...] often do you attend chur ch or denominational services? More than 4 times per year [...] Recorded Patient Health Questionnaire-2 Score 0 06/09/2024 [facility] - Occupational Stress Questionnaire Answer Date [...] place to sleep or slept in a correction (including now)? Patient declined 01/07/2024 Sex and [...] Alfie Morin M.D.06/25/2024 2:23 PM Dictation Location: [place] [address] Transcribed By: [facility] 06/25/24 1423 Dictated By: Alfie Morin DO 06/25/24 1359 Signed By: <Electronically signed by Alfie Morin DO in OV> 06/25/24 1423 Narrative 06/25/2024 2:26 PM EDT [facility] [place] [address] Nuclear Medicine Report Signed Patient: Jareth Lantigua MR#: [id number] : 1965 Acct:[id number] Age/Sex: 58 / M ADM Date: 06/25/24 Loc: [place] Room: Type: [facility] Attending Dr: Darryn Araya DO Copies to: [...] Procedure Note Radiology, Radiologist, MD - 06/25/2024 [facility] [address] [place] [address] [place] [address] Nuclear Medicine Report Signed Patient: Jareth Lantigua [facility]#: [id number] : 1965Acct:[id number] Age/Sex: 58 / MADM Date: 06/25/24 Loc: IN Room:Type: [facility] Attending Dr: Darryn Araya DO Copies to: [...] Alfie Morin M.D.06/25/2024 2:23 PM Dictation Location: [place] [address] Transcribed By: [facility] 06/25/24 1429 Dictated By: Alfie Morin DO 06/25/24 1359 Signed By: <Electronically signed by Alfie Morin DO in OV> 06/25/24 1423 Joseph Araya DO IMG [place] PROCEDURES Final Resul t documented in this encounter Visit Diagnoses Not on filedocumented in this encounter Care Teams Crozer Relationship Specialty Start Date End Date Joseph Araya DO [address] [place] [address] PCP - General Family Medicine 04/02/23 Joseph Araya DO [address] [place] [address] PCP - Medical [place] [employer] 05/03/14 11/02/99 documented as of this encounter
--- OUTSIDE RECORDS SUMMARY | 2025-05-28 10:52 | XMS_ITS | Encounter Summary ---
Author Organization [facility] Address [address] [place] [address] Care Team Providers Care Surveillance Operator Name Role Phone Quiana Mckeon DO, George Robert Primary Care Provi clemente Source Comments In the event this information is protected by the Federal Confidentiality of Alcohol and Drug AbusePatient Records regulations: The Federal rules restrict any use of the information to criminally investigate or prosecute any alcohol or drug abuse patient.[facility] Encounter Details Date Type Department Care Team ([facility] st Contact Info) Description 07/01/2024 Patient [facility] -[address] [place] [address] Torrie Herman RPh At your next appointment, choose [facility]. Social History Tobacco Use Types Packs/Day Years Used Date Smoking Tobacco: Never Smokeless Tobacco: Never Alcohol Use Standard Drinks/Week Comments Yes 0 (1 standard drink = 0.6 oz pur e alcohol) Area Deprivation Index Answer Date Masoud rded National Score (1-100), lower number is lower ri sk 86 06/17/2023 State Score (1-10), lower number is lower risk 8 06/17/2023 Data from: https://www.neighborhoodatlas.medicine.[facility].edu/. Last address used for calculation [facility] [place] 06/17/2023 Sex and Gender [...] PM EDT Office Visit Endocrinology [address] [place] [address] Glo Alan APRN.PARKING ENFORCEMENT OFFICER [address] [place] [address] see CHRISTINA Vargas 6 months 08/11/2025 2:40 PM EDT Office Visit [facility] [place] [address] [place] [address] [place] [address] [place], [place] [phone] 6 MONTH FOLLOW UP 12/07/2025 3:40 PM EST Office Visit Endocrinology [address] [place], [place] [phone] Bernardino Villagomez, DO [address] [place], [place] [phone] de in one year. documented as of this encounter Visit Diagnoses Not on filedocumented in this encounter Care Teams Surveillance Operator Relationship Specialty Start Date End Date Joseph Araya Jr., [address] [place] [address] PCP - General 10/12/07 documented as of this encounter
--- OUTSIDE RECORDS SUMMARY | 2025-05-28 10:53 | XMS_ITS | Encounter Summary ---
Author Organization [facility] Address [address] [place] [address] Care Team Providers Care Pest Control Service Technician Name Role Phone Joseph Araya DO Primary Care Provider [phone] Joseph Araya DO Unavailable [phone] Encounter Details Date Type Department Care Team (Late st Contact Info) Description 07/30/2023 Orders Only [facility] [place] [facility] [address] [facility] [address] [address] [address] [address] [place] [phone] A, Unknown Practice [address] [place] [phone] Social History Tobacco Use Types Packs/Day Years [...] on filedocumented in this encounter Care Teams Pest Control Service Technician Relationship Specialty Start Date End Date Joseph Araya DO [address] [place] [address] PCP - General Family Medicine 04/02/23 Joseph Araya DO [address] [place] [address] PCP - Medical [employer] 05/03/14 11/02/99 documented as of this encounter
--- OUTSIDE RECORDS SUMMARY | 2025-05-28 10:53 | XMS_ITS | Encounter Summary ---
Author Organization [facility] Address [address] [place] [address] Care Team Providers Care Service Parts Driver Name Role Phone Joseph Araya DO Primary Care Provider [phone] Joseph Araya DO Unavailable [phone] Encounter Details Date Type Department Care Team (Late st Contact Info) Description 07/02/2023 Abstract [facility] [place] [facility] [address] [facility] [address] [facility] [address] [place] [phone] Joseph Araya DO [address] [facility] [address] [place] [address] Social History Tobacco Use Types Packs/Day Years [...] on filedocumented in this encounter Care Teams Service Parts Driver Relationship Specialty Start Date End Date Joseph Araya DO [address] [place] [address] PCP - General Family Medicine 04/02/23 Joseph Araya DO [address] [facility] [address] [place] [address] PCP - Medical [place] [employer] 05/03/14 11/02/99 documented as of this encounter
--- OUTSIDE RECORDS SUMMARY | 2025-05-28 10:53 | XMS_ITS | Encounter Summary ---
Author Organization [facility] Address [address] [place] [address] Care Team Providers Care Stove Bottom Worker Name Role Phone Quiana Mckeon DO, George Robert Primary Care Provi clemente Source Comments In the event this information is protected by the Federal Confidentiality of Alcohol and Drug AbusePatient Records regulations: The Federal rules restrict any use of the information to criminally investigate or prosecute any alcohol or drug abuse patient.[facility] Reason for Visit * Reason Comments Results - Mri Encounter Details Date Type Department Care Team ([facility] Contact Info) Description 05/16/2025 Telephone Neurology [address] [place], [place] [phone] [place] [address] [address] [place] [phone] Results - Mri Social History Tobacco Use Types Packs/Day Years [...] is lower risk 8 06/17/2023 Data from: https://www.neighborhoodatlas.medicine.[facility]/. Last address used for calculation [...] Assessment Author No 02/28/2015 7:24 PM EDT Yosleyn Best LPN * Do you have serious [...] documented in this encounter Miscellaneous Notes * Addendum Note - Tess Tinoco APRN.CNP - 05/19/2025 8:48 AM EDTAddended by: TESS TINOCO on: 05/19/2025 08:48 AM Modules accepted: Orders * Telephone Encounter - Mady Hearn RN - 05/16/2025 2:46 PM EDT Called [facility] and spoke with lamont. Requested MRI images be sent to us. Lamont informedus that they sent them this morning after completion. * Telephone Encounter - Alexandria Cook - 05/16/2025 2:17 PM EDT Patient called to let Dr Chacko know that he completed his MRI today at [facility] in [place]. documented in this encounter Plan of Treatment Upcoming Encounters Date Type Department Care Team (Late st Contact Info) Description 06/06/2025 3:00 PM EDT Office Visit Endocrinology [address] [facility] [place] [address] Glo Alan APRN.RETORT CONDENSER ATTENDANT [address] [place] [address] see RETORT CONDENSER ATTENDANT in [place] 6 months 08/11/2025 2:40 PM EDT Office Visit [facility]ine [place] [address] [place] [address] [place] [address] [facility] [place] [address] 6 MONTH FOLLOW UP 12/07/2025 3:40 PM EST Office Visit Endocrinology [address] [place] [address] Bernardino Villagomez DO [address] [facility] [place] [address] me in one year. Scheduled Orders Name Type Priority Associated Diagnoses Orde r Schedule SPINE INTERVENTION PROCEDURE Procedures Routine Radiculopathy, lumbar region Ordered: 05/19/2025 documented as of this encounter Visit Diagnoses Diagnosis Radiculopathy, lumbar region- Primary Thoracic or lumbosacral neuritis or radiculitis, unspecified documented in this encounter Care Teams Stove Bottom Worker Relationship Specialty Start Date End Date Joseph Araya Jr., [address] [place] [phone] PCP - General 10/12/07 documented as of this encounter
--- OUTSIDE RECORDS SUMMARY | 2025-05-28 10:53 | XMS_ITS | Clinical Summary ---
Author Organization [facility] Address [address] [place] [address] Care Team Providers Care Rush Seater Name Role Phone Joseph Araya DO Primary Care Provider [phone] Joseph Araya DO Unavailable Allergies Active Allergy Reactions Criticality Noted Date [...] by mouth every 30 (thirty) days Active Icosapent Ethyl (Vascepa) 1 g capsuleIndication s:Hypertension, unspecified type TAKE 2 CAPSULES TWICE A DAY WITH MEALS 360 capsule 3 024 Active albuterol HFA (ProAir HFA) 90 mcg/act inhalerIndication s:Moderate asthma with exacerbation, unspecified whether persistent (HCC) Inhale 2 puffs every 4 (four) hours if needed for shortness of breath or wheezing 024 Active rosuvastatin (Crestor) 20 MG tabletIndications :Hyperlipidemia, unspecified hyperlipidemia type TAKE 1 TABLET DAILY 90 tablet 3 024 Active FLUoxetine (PROzac) 40 MG capsuleIndication s:Anxiety and depression TAKE 1 CAPSULE DAILY 90 capsule 3 024 Active Advair HFA 230-21 MCG/ACT inhalerIndication s:Moderate asthma with exacerbation, unspecified whether persistent (HCC) USE 2 INHALATIONS TWICE A DAY 36 g 3 024 Active ibuprofen 800 MG tabletIndications :Pain TAKE 1 TABLET THREE TIMES A DAY NEEDED FOR MODERATE PAIN OR MILD PAIN 120 tablet 8 025 Active montelukast (Singulair) 10 MG tabletIndications :Allergic rhinitis, unspecified seasonality, unspecified trigger TAKE 1 TABLET DAILY IN THE EVENING 90 tablet 3 025 Active lisinopril 20 MG tabletIndications :Primary hypertension TAKE 1 TABLET DAILY 90 tablet 3 025 Active tiZANidine (Zanaflex) 4 MG tabletIndications :Neuropathy,Spina l stenosis, unspecified spinal region,Sciatica of left side Take 1 tablet (4 mg) by mouth every 6 (six) hours if needed for muscle spasms 180 tablet 2 025 Active fluticasone (Flonase) 50 MCG/ACT nasal sprayIndications: Dysfunction of Eustachian tube, unspecified laterality Administer 2 sprays into each nostril Daily 16 g 3 025 Active gabapentin (Neurontin) 800 MG tabletIndications :Sciatica of left side,Pain Take 1.5 tablets (1,200 mg) by mouth in the morning and 1.5 tablets (1,200 mg) in the evening and 1.5 tablets (1,200 mg) before bedtime. 360 tablet 3 025 Active levothyroxine (Synthroid, Levoxyl) 50 MCG tabletIndications :Hypothyroidism, unspecified type TAKE 2 TABLETS ONCE DAILY IN THE MORNING ON AN EMPTY STOMACH 180 tablet 3 025 Active levothyroxine (Synthroid, Levoxyl) 50 MCG tabletIndications :Hypothyroidism, unspecified type TAKE 2 TABLETS ONCE DAILY IN THE MORNING ON AN EMPTY STOMACH 180 tablet 3 024 2024 Discontinued oxyCODONE-acetami nophen (Percocet) 5-325 MG tabletIndications :Lumbosacral radiculopathy at L5,Abnormal MRI, lumbar spine Take 1 tablet by mouth every 6 (six) hours if needed for severe pain for up to 5 days 15 tablet 025 2024 Discontinued(R eorder) oxyCODONE-acetami nophen (Percocet) 5-325 MG tabletIndications :Lumbosacral radiculopathy at L5,Abnormal MRI, lumbar spine Take 1 tablet by mouth every 6 (six) hours if needed for severe pain for up to 5 days 15 tablet 025 2024 Active Problems Problem Noted Date Diagnosed Date Lumbosacral radiculopathy at L5 03/31/2025 Acquired hypothyroidism 12/30/2024 Abnormal MRI, lumbar spine 06/14/2024 Colon cancer [...] Allergic rhinitis 03/19/2023 03/19/2023 Chronic pansinusitis 03/19/2023 12/19/2 023 DNS (deviated nasal septum) 03/19/2023 10/21/2023 Hyperlipidemia 03/19/2023 03/19/2023 Other disturbances of skin sensation 03/19/2023 03/19/2023 Encounters Date Type Department Care Team Description 05/13/2025 Refill [facility] [address] [place] [phone] Joseph Araya, DO Hypothyroidism, unspecified type 04/30/2025 [facility] [address] [place] [phone] Joseph Araya, DO Lumbosacral radiculopathy at L5; Abnormal MRI, lumbar spine 04/25/2025 Refill [facility] [address] [place] [phone] Joseph Araya, DO Lumbosacral radiculopathy at L5; Abnormal MRI, lumbar spine 04/22/2025 [facility] [address] [place] [phone] Joseph Araya, DO 04/16/2025 Refill [facility] [address] [place] [address] Joseph Araya, DO Sciatica of left side; Pain 04/16/2025 Refill [facility] [address] [place] [phone] Joseph Araya, DO Lumbosacral radiculopathy at L5; Abnormal MRI, lumbar spine 04/11/2025 Refill [facility] [address] [place] [phone] Joseph Araya, DO Dysfunction of Eustachian tube, unspecified laterality 04/11/2025 Refill [facility] [address] [place] [phone] Joseph Araya, DO Lumbosacral radiculopathy at L5; Abnormal MRI, lumbar spine 04/09/2025 Refill [facility] [address] [place] [address] Joseph Araya DO Neuropathy; Spinal stenosis, unspecified spinal region; Sciatica of left side 04/05/2025 Refill [facility] [address] [place] [address] Joseph Araya DO Lumbosacral radiculopathy at L5; Abnormal MRI, lumbar spine 04/01/2025 Results Follow-Up [facility] [address] [place] [phone] Patricia Estrada MA 03/31/2025 3:00 PM EDT Office Visit [facility] [address] [place] [phone] Joseph Araya DO Neuropathy (Primary Dx); Primary hypertension ; Lumbosacral radiculopathy at L5; Type 1 diabetes mellitus without complication (HCC); Abnormal MRI, lumbar spine; Acquired hypothyroidism 03/31/2025 Bamboo flowsheet [facility] [address] [place] [address] Joseph Araya DO 03/31/2025 Travel 03/25/2025 Clinisync Result Encounter [facility] External Department Unsolicited Provider, Generic External Data from Last 3 Months Immunizations Immunization Administration Dates Next Due Hep B, adult 01/20/2004,11/02/2003,09/21/2003 Influenza, injectable, MDCK, preservative free, quadrivalent 07/27/2021,08/04/2019,08/05/2018,08/14 Influenza, injectable, quadr ivalent, preservative free 08/02/2023,08/03/2022,07/24/2021,07/24,08/15/2016 Influenza, seasonal, injectable 08/21/2021 Influenza, seasonal, injecta ble, preservative free 08/31/2024,08/26/2015 Novel [id number], preservative-free 09/23/2009 Pfizer Purple Cap SARS-CoV-2 Vaccination 01/04/2021,12/14/2020 Pneumococcal Conjugate PCV 13 02/25/2019 Pneumococcal Polysaccharide PPSV23 05/21/2021 Tdap 10/07/2024 Zoster, Recombinant 04/15/2023,08/10/2022 Family History Medical History [...] 01/07/2024 How often do you attend chur or sabianist services? More than 4 times per year 01/07/2024 Do you belong to any clubs o r organizations such as mormon groups, unions, fraternal or athletic groups, or [...] Date Recorded Patient Health Questionnaire-2 Score 0 03/31/2025 [facility] - Occupational Stress [...] place to sleep or slept in a nursing home (including now)? Patient declined 01/07/2024 Sex and Gender Information Value Date Recorded Sex Assigned at Not on file Legal Sex Male 6:52 PM EDT Gender Identity Not on file Sexual Orientation Not on file Last Filed Vital Signs Vital Sign Reading Time Taken Comments Blood Pressure 150/96 03/31/2025 2:47 PM EDT Pulse 77 03/31/2025 2:47 PM EDT Temperature 37.1 C (98.8 F) 03/31/2025 2:47 PM EDT Respiratory Rate - - Oxygen Saturation 96% 03/31/2025 2:47 PM EDT Inhaled Oxygen Concentration - - Weight 87.5 kg (193 lb) 03/31/2025 2:47 PM EDT Height 172.7 cm (5' 8 ) 03/31/2025 2:47 PM EDT Body Mass Index 29.35 03/31/2025 2:47 PM EDT Plan of Treatment Health Maintenance Due Date Last Done Comments CT Colonography 1965 FIT-DNA 1965 FIT 1965 FOBT 1965 Sigmoidoscopy 1965 Diabetes: Hemoglobin A1C 03/29/2025 025, 12/07/2024, 07/08/2024, Additional history exists Influenza Vaccine (#1) 2025 , 08/02/2023, 08/03/2022, Additional history exists Colonoscopy 08/11/2025 08/11/2015 Colorectal Cancer Screening 08/11/2025 Diabetes: Urine Protein Screening 12/30/2025 12/30/2024, 12/30/2024, 06/09/2024, Additional history exists Diabetes: Retinopathy Screening 02/14/2026 02/14/2025, 02/14/2025, 02/14/2025, Additional history exists Procedures Procedure Name Priority Date/Time Associated Diagnosis Comments SED RATE BY MODIFIED WESTERGREN Routine 03/31/2025 3:25 PM EDT Neuropathy Lumbosacral radiculopathy at L5 Type 1 diabetes mellitus without complication (HCC) T3, TOTAL Routine 03/31/2025 3:25 PM EDT Acquired hypothyroidism T4, FREE Routine 03/31/2025 3:25 PM EDT Acquired hypothyroidism TSH Routine 03/31/2025 3:25 PM EDT Acquired hypothyroidism COMPREHENSIVE METABOLIC PANEL Routine 03/31/2025 3:25 PM EDT Neuropathy Primary hypertension Lumbosacral radiculopathy at L5 Type 1 diabetes mellitus without complication (HCC) Abnormal MRI, lumbar spine Acquired hypothyroidism CBC (INCLUDES DIFF/PLT) Routine 03/31/2025 3:25 PM EDT Neuropathy Primary hypertension Lumbosacral radiculopathy at L5 Type 1 diabetes mellitus without complication (HCC) Abnormal MRI, lumbar spine Acquired hypothyroidism XR HIP 2 OR 3 VW LEFT 03/25/2025 4:57 PM EDT MICROALBUMIN / CREATININE URINE RATIO Routine 06/09/2024 2:17 PM EDT Type 1 diabetes mellitus with other specified complication (HCC) HEMOGLOBIN A1C Routine 06/09/2024 2:17 PM EDT Type 1 diabetes mellitus with other specified complication (HCC) COLOR FUNDUS PHOTOGRAPHY - OU - BOTH EYES Routine 08/30/2020 12:00 PM EDT COLONOSCOPY Routine 08/11/2015 12:00 PM EDT from Last 3 Months or Most Recently Relevant to Health Maintenance Results * Sedimentation rate, automated (03/31/2025 3:25 PM EDT) Pathologist [facility] Sed Rate-Westergren 2 0 - 30 mm/hr [facility] Blood Venous blood specimen / Unknown 03/31/2025 3:25 PM EDT 03/31/2025 Narrative [facility] - 04/01/2025 11:07 AM EDT Performed at: 01 - [facility] [address] [id number] An/Sqq 89(V)15 Sonar System Journeyman: Jaime Meyer PhD, Phone: [phone] us Joseph Araya DO LAB BLOOD ORDERABLES Final Re sult [facility] * (ABNORMAL) CBC and differential (03/31/2025 3:25 PM EDT) WBC 7.0 3.4 - 10.8 x10E3/uL [facility] RBC 3.97(L) 4.14 - 5.80 x10E6/uL [facility] Hgb 11.7(L) 13.0 - 17.7 g/dL [facility] Hct 37.5 37.5 - 51.0 % [facility] MCV 95 79 - 97 fL [facility] MCH 29.5 26.6 - 33.0 pg [facility] MCHC 31.2(L) 31.5 - 35.7 g/dL [facility] RDW 14.1 11.6 - 15.4 % [facility] Platelets 270 150 - 450 x10E3/uL [facility] Neutrophils 52 Not Estab. % [facility] Lymphs 31 Not Estab. % [facility] Monocytes 10 Not Estab. % [facility] Eos 6 Not Estab. % [facility] Basos 1 Not Estab. % [facility] Neutrophils Abs 3.6 1.4 - 7.0 x10E3/uL [facility] Lymphs Abs 2.2 0.7 - 3.1 x10E3/uL [facility] MonocytesAbs 0.7 0.1 - 0.9 x10E3/uL [facility] Eos Abs 0.4 0.0 - 0.4 x10E3/uL [facility] Baso Abs 0.1 0.0 - 0.2 x10E3/uL [facility] Immature Granulocytes 0 Not Estab. % [facility] Immature Grans Abs 0.0 0.0 - 0.1 x10E3/uL [facility] Blood Venous blood specimen / Unknown 03/31/2025 3:25 PM EDT 03/31/2025 Narrative [facility] - 04/01/2025 11:07 AM EDT Performed at: 01 - [facility] [id number] An/Sqq 89(V)15 Sonar System Journeyman: Jaime Meyer PhD, Phone: [phone] Joseph Araya DO LAB BLOOD ORDERABLES Final Re sult [facility] * T3 (03/31/2025 3:25 PM EDT) T3 Triiodothyronine 91 71 - 180 ng/dL [facility] Blood Venous blood specimen / Unknown 03/31/2025 3:25 PM EDT 03/31/2025 Narrative [facility] - 04/01/2025 11:07 AM EDT Performed at: [address] [place] [id number] An/Sqq 89(V)15 Sonar System Journeyman: Jaime Meyer PhD, Phone: [phone] Joseph Araya LAB BLOOD ORDERABLES Final Re sult Performing Organization Address [facility] de Phone Number [facility] * TSH (03/31/2025 3:25 PM EDT) TSH 1.490 0.450 - 4.500 uIU/mL [facility] Blood Venous blood specimen / Unknown 03/31/2025 3:25 PM EDT 03/31/2025 Narrative [facility] - 04/01/2025 11:07 AM EDT Performed at: [address] [place] [id number] An/Sqq 89(V)15 Sonar System Journeyman: Jaime Meyer PhD, Phone: [phone] Joseph Araya LAB BLOOD ORDERABLES Final Re sult Performing Organization Address [facility] Phone Number [facility] * T4, free (03/31/2025 3:25 PM EDT) T4Free(Direct) 1.24 0.82 - 1.77 ng/dL [facility] Blood Venous blood specimen / Unknown 03/31/2025 3:25 PM EDT 03/31/2025 Narrative [facility] - 04/01/2025 11:07 AM EDT Performed at: [address] [place] [id number] An/Sqq 89(V)15 Sonar System Journeyman: Jaime Meyer PhD, Phone: [phone] Joseph Araya LAB BLOOD ORDERABLES Final Re sult Performing Organization Address [facility] de Phone Number [facility] * (ABNORMAL) Comprehensive metabolic panel (03/31/2025 3:25 PM EDT) [facility] Glucose 227(H) 70 - 99 mg/dL [facility] BUN 13 8 - 27 mg/dL [facility] Creat 1.03 0.76 - 1.27 mg/dL [facility] EGFR 83 >59 mL/min/1.7 3 [facility] BUN/Creat Ratio 13 10 - 24 [facility] Sodium 137 134 - 144 mmol/L [facility] Potassium 4.9 3.5 - 5.2 mmol/L [facility] Chloride 102 96 - 106 mmol/L [facility] Carbon Dioxide 23 20 - 29 mmol/L [facility] Calcium 9.3 8.6 - 10.2 mg/dL [facility] Protein Total 6.4 6.0 - 8.5 g/dL [facility] Albumin 4.3 3.8 - 4.9 g/dL [facility] Globulin Total 2.1 1.5 - 4.5 g/dL [facility] Bili Total 0.2 0.0 - 1.2 mg/dL [facility] Alk Phosphatase 68 44 - 121 IU/L [facility] AST 54(H) 0 - 40 IU/L [facility] ALT 62(H) 0 - 44 IU/L [facility] Blood Venous blood specimen / Unknown 03/31/2025 3:25 PM EDT 03/31/2025 Narrative [facility] - 04/01/2025 11:07 AM EDT Performed at: [address] [place] [id number] An/Sqq 89(V)15 Sonar System Journeyman: Jaime Meyer PhD, Phone: [phone] us Joseph Araya DO LAB BLOOD ORDERABLES Final Re sult [facility] * XR hip left 2 or 3 views (03/25/2025 4:57 PM EDT) Anatomical Region Laterality Modality Lower Extremities, Hip Left Radiograp hic Imaging 03/25/2025 4:5 7 PM EDT Narrative 03/25/2025 5:00 PM EDT [address] [address] XRay Report Signed Patient: JARETH VILLAGRAN MR#: [id number] : 1965 Acct:[id number] Age/Sex: 59 / M ADM Date: 03/25/25 Loc: RAD Attending Dr: Enedina-Staff Physician Salazar Ordering Physician: Ronnie Mondragon M.D. Date of Service: 03/25/25 Procedure(s): XR hip LT 2V w/ pelvis Accession Number(s): [id number] cc: Cristy ARAYA ; Ronnie Mondragon M.D. [facility] [place] [id number] Patient Name: JARETH VILLAGRAN MRN: [facility]:[id number] date: 1965 Sex: M Assigned Patient Location: RAD Current Patient Location: [facility] Accession/Order Number: [id number] Exam Date: 03/25/2025 16:56 Report Date: 03/25/2025 16:57 At the request of: NON-STAFF PHYSICIAN Procedure: XR hip LT 2V w/ pelvis 2 views left hip with single view pelvis HISTORY: Left hip pain Adequate alignment. No significant degeneration. No acute displaced fracture. Unremarkable soft tissues. XR/XR hip LT 2V w/ pelvis IMPRESSION: Unremarkable exam Impression dictated by: Alfie Morin M.D. 03/25/2025 4:57 PM Dictation Location: [place] [address] Electronically authenticated by: [id number] Y Date: 03/25/2025 16:57 Dictated By: Alfie Morin D.O. Signed By: 03/25/25 1700 DD/ 1657 TD/TT: Center Lead Consultant: Procedure Note Radiology, Radiologist, - 03/25/2025 [facility] [place] [id number] XRay Report Signed Patient: JARETH VILLAGRAN SMR#: [id number] : 1965Acct:[id number] Age/Sex: 59 / MADM Date: 03/25/25 Loc: VITOR Attending Dr: DamiStaff Physician Martin Ordering Physician: PhysicianNonTuanStaff Martin Date of Service: 03/25/25 Procedure(s): XR hip LT 2V w/ pelvis Accession Number(s): [id number] cc: Cristy ARAYA ; Physician,Non-Staff Martin The [address] [address] Patient Name: JARETH VILLAGRAN MRN: [facility]:[id number] date: 1965 Sex: M Assigned Patient Location: RAD Current Patient Location: RAD Accession/Order Number: [id number] Exam Date: 03/25/2025 16:56 Report Date: 03/25/2025 16:57 At the request of: NON-STAFF PHYSICIAN Procedure: XR hip LT 2V w/ pelvis 2 views left hip with single view pelvis HISTORY: Left hip pain Adequate alignment. No significant degeneration. No acute displaced fracture. Unremarkable soft tissues. XR/XR hip LT 2V w/ pelvis IMPRESSION: Unremarkable exam Impression dictated by: Alfie Morin M.D. 03/25/2025 4:57 PM Dictation Location: [place] [address] Electronically authenticated by: [id number] Y Date: 6:57 Dictated By: Alfie Morin D.O. Signed By:03/25/25 1700 DD/ 165 TD/TT: Center Lead Consultant: Generic External Data Provider [facility] [place]ED[place] Final Result * Microalbumin / creatinine urine ratio (06/09/2024 2:17 PM EDT) CREATININE, RANDOM URINE 43 20 - 320 mg/dL [facility] ALBUMIN, URINE <0.2 See Note: mg/dL [facility] Comment: Reference Range: Reference Range Not established ALBUMIN/CREATININE RATIO, RANDOM URINE NOTE <30 mg/g creat [facility] Comment: NOTE: The urine albumin value is less than 0.2 mg/dL therefore we are unable to calculate excretion and/or creatinine ratio. The ADA defines abnormalities in albumin excretion as follows: Albuminuria Category Result (mg/g creatinine) Normal to Mildly increased <30 Moderately increased 30-299 Severely increased > OR = 300 The ADA recommends that at least two of three specimens collected within a 3-6 month period be abnormal before considering a patient to be within a diagnostic category. Urine Urine specimen obtained by clean catch procedure / Unknown 06/09/2024 2:17 PM EDT 06/09/2024 2:18 PM EDT Narrative Resulting Agency Comment Performing Organization Information Site ID: QPT Name: [facility] Address: [address] [place] [address], [address] [place] [phone] Director: Yahir Velazquez MD us Joseph Araya DO LAB URINE ORDERABLES Final Re sult [facility] * (ABNORMAL) Hemoglobin A1c (06/09/2024 2:17 PM EDT) Hemoglobin A1C 7.6(H) <5.7 % of total Hgb [facility] Comment: For someone without known diabetes, a hemoglobin A1c value of 6.5% or greater indicates that they may have diabetes and this should be confirmed with a follow-up test. For someone with known diabetes, a value <7% indicates that their diabetes is well controlled and a value greater than or equal to 7% indicates suboptimal control. A1c targets should be individualized based on duration of diabetes, age, comorbid conditions, and other considerations. Currently, no consensus exists regarding use of hemoglobin A1c for diagnosis of diabetes for children. This test was performed on the Felicia jesse c503 platform. Effective 10/20/23, a change in test platforms from the [employer] to the Felicia jesse c503 may have shifted HbA1c results compared to historical results. Based on laboratory validation testing conducted at [facility], the Felicia platform relative to the Chavez platform had an average increase in HbA1c value of < or = 0.3%. This difference is within accepted variability established by the National Glycohemoglobin Standardization Program. Note that not all individuals will have had a shift in their results and direct comparisons between historical and current results for testing conducted on different platforms is not recommended. Blood Venous blood specimen / Unknown 06/09/2024 2:17 PM EDT 06/09/2024 2:18 PM EDT Narrative Resulting Agency Comment Performing Organization Information Site ID: QPT Name: [facility] [facility] Address: [address] [facility] [place] [address] Director: Yahir Velazquez MD Joseph Araya DO LAB BLOOD ORDERABLES Final Re sult [facility] * Color Fundus Photography - OU - Both Eyes (08/30/2020 12:00 PM EDT) Anatomical Region Laterality Modality Head Fundus Photograp hy 08/30/2020 12:0 0 PM EDT Narrative 08/30/2020 12:00 PM EDT PERFORMED AT [facility] LOCATION:[id number] SSI Procedure Note CONVERSION, GENERIC - 03/19/2023 PERFORMED AT [facility] LOCATION:[id number] [facility] Joseph Araya DO OPHTH PHOTOGRAPHY Final Resul t * Colonoscopy (08/11/2015 12:00 PM EDT) Anatomical Region Laterality Modality Endoscopy 08/11/2015 12:0 0 PM EDT Narrative 08/11/2015 12:00 PM EDT PERFORMED AT [facility] LOCATION:[id number] Procedure Note CONVERSION, GENERIC - 03/20/2023 PERFORMED AT [facility] LOCATION:[id number] Joseph Araya DO ENDOSCOPY PROCEDURE ORDERABLE S Final Result from Last 3 Months or Most Recently Relevant to Health Maintenance Insurance [employer] Care Teams Rush Seater Relationship Specialty Start Date End Date Joseph Araya DO [address] [place] [address] PCP - General Family Medicine 04/02/23 Joseph Araya DO [address] [facility] [address] [place] [address] PCP - Medical [place] [employer] 05/03/14 11/02/99
--- OUTSIDE RECORDS SUMMARY | 2025-05-28 10:53 | XMS_ITS | Encounter Summary ---
Author Organization [facility] Address [address] [place] [address] Care Team Providers Care Broacher Name Role Phone Joseph Araya DO Primary Care Provider [phone] Joseph Araya DO Unavailable [phone] Encounter Details Date Type Department Care Team (Late st Contact Info) Description 04/22/2025 Abstract [facility] [address] [facility] [address] [place] [phone] Joseph Araya DO [address] [facility] [address] [place] [address] Social History Tobacco Use Types Packs/Day Years [...] often do you attend chur ch or gnosticist services? More than 4 times per year 01/07/2024 Do you belong to any clubs o r organizations such as caodaism groups, unions, fraternal or athletic groups, or [...] Recorded Patient Health Questionnaire-2 Score 0 03/31/2025 [facility] - Occupational [...] place to sleep or slept in a usp (including now)? Patient declined 01/07/2024 Sex and Gender Information Value Date Recorded Sex Assigned at Not on file Legal Sex Male 6:52 PM EDT Gender Identity Not on file Sexual Orientation Not on file documented as of this encounter Plan of Treatment Not on file documented as of this encounter Visit Diagnoses Not on filedocumented in this encounter Care Teams Broacher Relationship Specialty Start Date End Date Joseph Araya DO [address] [place] [address] PCP - General Family Medicine 04/02/23 Joseph Araya DO [address] [place] [address] PCP - Medical [place] [employer] 05/03/14 11/02/99 documented as of this encounter
--- OUTSIDE RECORDS SUMMARY | 2025-05-28 10:54 | XMS_ITS | CCD ---
Author Organization [facility] Care Team Providers Care Retail Loan Originator Assistant Name Role Phone Leonel Chu (Atassi) Unavailable Unavai lable No Family Physician Unavailable Unavailable No Family Physician Unavailable Unavailable Mubarak Nadim (Al-Mubarak) Unavailable Unav ailable No Family Physician Unavailable Unavailable No Family Physician Unavailable Unavailable Teofilo, Bandar Uddin Attending Unavailable *SELF, REFERRED Referring Unavailable Mikael Araya [facility] Unavailabl e AL-MUBARAK, NADIM Attending Unavailable Mikael Araya Referring Unavailabl e [facility] Mikael Eve [facility] Unavailabl e AL-MUBARAK, NADIM Attending Unavailable Mikael Araya [facility] Unavailabl e CHRISTIAN KINSEY Attending Unavailable Teofilo, Bandar Uddin Referring Unavailable jeyson [facility] Unavailabl e AL-MUBARAK, NADIM Attending Unavailable Mikael Araya Referring Unavailabl e Quiana [facility] Unavailabl e Teofilo, Bandar Uddin Attending Unavailable Mikael Araya Referring Unavailabl e Kajeyson [facility] Unavailabl e Teofilo, Bandar Uddin Attending Unavailable Teofilo, Bandar Uddin Referring Unavailable Mikael Araya [facility] Unavailabl e Teofilo, Bandar Uddin Attending Unavailable Teofilo, Bandar Uddin Referring Unavailable [facility] Unavailabl e Teofilo, Bandar Uddin Attending Unavailable Teofilo, Bandar Uddin Referring Unavailable Mikael Araya [facility] Unavailabl e Teofilo, Bandar Uddin Attending Unavailable Teofilo, Bandar Uddin [facility]erring [facility] Unavailabl e Teofilo, Bandar Uddin Attending Unavailable Teofilo, Bandar Uddin Referring [facility]available [facility] Unavailabl e Teofilo, Bandar Uddin Attending Unavailable Teofilo, Bandar Uddin Referring [facility]available [facility] Unavailabl e Teofilo, Bandar Uddin Attending Unavailable Teofilo, Bandar Cavanaughdin Referring Unavailable Kaftan, Mikael Prado Primary Care Unavailabl e Teofilo, Bandar Vidales Attending Unavailable Kaburtonan, Mikael Prado Referring Unavailabl e Kaftan, Mikael Prado Primary Care Unavailabl e Mikael Araya Jr. Primary Care Provider Tom Calderon Unavailable DO Darryn Araya Primary Care Provider ZANE Smith Emergency Provider [phone] MD Bucky Pitt Attending Provider Mikael Araya Jr. Primary Care Provider Mikael Araya Jr. Primary Care Provider Mikael Araya Jr. Primary Care Provider QUIANA, DR Cristy PRADO Admitting Unavailable KAFTAN, DR Cristy PRADO Attending Unavailable KAFTAN, DR Cristy PRADO Primary Care Unavailable KAFTAN, DR Cristy PRADO Consulting Unavailable MISC, DR GARG Admitting Unavailable MISC, DR GARG Attending Unavailable KAFTAN, DR Cristy PRADO Primary Care Unavailable MISC, DR GARG Consulting Unavailable KAFTAN, DR Cristy PRADO Admitting Unavailable KAFTAN, DR Cristy PRADO Attending Unavailable KAFTAN, DR Cristy PRADO Primary Care Unavailable KAFTAN, DR Cristy PRADO Consulting Unavailable KAFTAN, DR Cristy PRADO Admitting Unavailable KAFTAN, DR Cristy PRADO Attending Unavailable KAFTAN, DR Cristy PRADO Primary Care Unavailable KAFTAN, DR Cristy PRADO Admitting Unavailable KAFTAN, DR Cristy PRADO Attending Unavailable KAFTAN, DR Cristy PRADO Primary Care Unavailable MISC, DR GARG Admitting Unavailable MISC, DR GARG Attending Unavailable KAFTAN, DR Cristy PRADO Primary Care Unavailable MISC, DR GARG Consulting Unavailable Dara Elizabeth Unavailable DO Darryn Araya Primary Care Provider [phone] MD Tom Calderon Attending Provider Jodi Nolan Unavailable Cristy ARAYA Primary Care Physician Quiana Garza DO, George Robert Primary Care Provi clemente Mikael Araya DO Primary Care Provider KaMikael benítez DO R Unavailable Quiana Garza DO, George Robert Primary Care Provi clemente DO Darryn Araya Primary Care Provider JANIE Rico Attending Provider [phone] DO Darryn Araya Primary Care Provider [phone] DO Darryn Araya Attending Provider Mikael Araya DO R Unavailable [phone] Katey Voss Unavailable MORENA, GANBRANDYIVARMA Admitting Unavail able MALIHA BERG Attending Unavail able MIKAEL ARAYA JR Primary Care Unavail able Alfie CERVANTES Attending Unavailable JR. GINA, MIKAEL Prescott Attending Unavaila ovi JORDAN JR., GEORGE C Referring Unavaila ble MIKAEL ARAYA Attending Unavailable KAMIKAEL BENÍTEZ Referring Unavailable JEANETH SHI Attending Unavailable KAMIKAEL BENÍTEZ Attending Unavailable KAJEYSON, MIKAEL Wallace Referring Unavailable KAFTAN, MIKAEL Wallace Referring Unavailable KATEY ANNE Attending Unavailable KATEY ANNE Attending Unavailable KATEY ANNE Referring Unavailable KAFTAN, MIKAEL Wallace Referring Unavailable KAFTAN, MIKAEL Wallace Attending Unavailable BUCKY EPÑA Attending Unavailable KAJEYSON, MIKAEL Wallace Referring Unavailable BUCKY PEÑA Attending Unavailable MIKAEL ARAYA Attending Unavailable KAMIKAEL BENÍTEZ Referring Unavailable KAFTAN, MIKAEL Wallace Referring Unavailable KAFTANMIKAEL Attending Unavailable KAMIKAEL BENÍTEZ Referring Unavailable MORENAMALIHA Attending Unavail able MIGDALIA UREÑA Referring Unavailable MIKAEL ARAYA JR Primary Care Unavail able MIGDALIA UREÑA Admitting Unavailable MIGDALIA UREÑA Attending Unavailable MIKAEL ARAYA JR Primary Care Unavail able MIGDALIA UREÑA Admitting Unavailable MIGDALIA UREÑA Attending Unavailable MIKAEL ARAYA JR Primary Care Unavail able MALIHA BERG M Referring Unava ilable MIKAEL ARAYA JR Primary Care Unavail able Darryn Araya DO Primary Care Provider Darryn Araya DO Referring Provider [phone] Rene Castillo MD Attending Provider Darryn Araya Admitting Unavailable Darryn Araya Attending Unavailable Darryn Araya Primary Care Unavailable Rene Castillo Attending Unavailable Rene Castillo Admitting Unavailable Darryn Araya Primary Care Unavailable MORENA, GANDHIVARMA Referring Unavail able MIKAEL ARAYA JR Primary Care Unavail able MORENA, GANDHIVARMA Referring Unavail able MIKAEL ARAYA JR EVE Primary Care Unavail able MORENA, GANDHIVARMA Referring Unavail able MIKAEL ARAYA JR Primary Care Unavail able PRABHA GONZALEZ Referring Unavailable MIKAEL ARAYA JR Primary Care Unavail able MIKAEL ARAYA JR Primary Care Unavail able MORENA, GANDHIVARMA Attending Unavail able MIKAEL ARAYA JR Primary Care Unavail able MORENA, GANDHIVARMA Attending Unavail able MIKAEL ARAYA JR Primary Care Unavail able MIGDALIA UREÑA Attending Unavailable SELF Referring Unavailable MIKAEL ARAYA JR Primary Care Unavail able GLO SANDRA Attending Unavailable MIKAEL ARAYA JR [facility] Unavail able BERNARDINO VILLAGOMEZ Attending Unavailable MIKAEL ARAYA JR [facility] Care Unavail able MORENA, GANDHIVARMA Attending Unavail able MIKAEL ARAYA JR Primary Care Unavail able MORENA, GANDHIVARMA Referring Unavail able MIKAEL ARAYA JR Primary Care Unavail able MORENA, GANDHIVARMA Referring Unavail able MIKAEL ARAYA JR Primary Care Unavail able MORENA, GANDHIVARMA Referring Unavail able MIKAEL ARAYA JR Primary Care Unavail able Allergies Allergy Classification Reported Allergen(s) Allergy Type Date of Onset Reaction(s) Facility (20 sources) adalimumab; Translations: [adalimumab] Drug Allergy 08-20-20 17 GI Upset, Chest pain (finding) [facility] (20 sources) Methotrexate; Translations: [METHOTREXATE] Drug Allergy 05-21-20 19 Unknown [facility] (17 sources) Red Dye [Other] Propensity to adverse reactions 07-20-20 02 [facility] Work Phone: (20 sources) Contrast media; Translations: [red dye] Propensity to adverse reactions 07-04-20 Unknown [facility] (20 sources) Sulfamethoxazole; Translations: [sulfamethoxazole] Drug Allergy 04-16-20 Unknown Reaction [facility] (20 sources) Trimethoprim; Translations: [trimethoprim] Drug Allergy 04-16-20 Unknown Reaction [facility] (2 sources) adalimumab; Translations: [Humira] Drug Allergy [facility] (1 source) Methotrexate Drug Allergy 09-22-20 21 [facility] (2 sources) Sulfamethoxazole / Trimethoprim; Translations: [Bactrim] Drug Allergy 08-10-20 18 [facility] (20 sources) Sulfamethoxazole / Trimethoprim; Translations: [sulfamethoxazole-t rimethoprim] Drug Allergy 03-19-20 Unknown (qualifier value), Unknown [facility] (20 sources) adalimumab Drug Allergy 03-19-20 [facility] Work Phone: (20 sources) Red Dye #40 (Allura Red) Allergy to substance 03-19-20 Unknown [facility] (1 source) adalimumab Drug Allergy 04-17-20 [facility] (1 source) Methotrexate Drug Allergy 04-17-20 [facility] Rep[facility] Medications Current Medications Medication Drug Class(es) Dates Sig (Normalized) Sig (Original) acetaminophen 500 mg oral tablet (3 sources) Start: 08-11-2024 End: 08-21-2024 take 2 tablets by mouth every six hours for pain acetaminophen (Tylenol Extra Strength) 500 MG tablet Indications: Sciatica of left side Take 2 tablets (1,000 mg) by mouth every 6 (six) hours if needed for mild pain for up to 10 days 08/11/2024 08/21/2024 Active acetaminophen 325 mg / HYDROcodone bitartrate 5 mg oral tablet (14 sources) Opioid Agonist Start: 12-27-2024 End: 01-01-2025 take 1 tablet by mouth every six hours for pain HYDROcodone-acetami nophen ([place]) 5-325 MG tablet Indications: Lumbosacral radiculopathy at L5 Take 1 tablet by mouth every 6 (six) hours if needed for severe pain for up to 5 days 20 tablet 12/27/2024 01/01/2025 Active Start: 2024 End: 12-04-2024 take 1 tablet by mouth every six hours for pain HYDROcodone-acetaminophen ([place]) 5-325 MG tablet Indications: Lumbosacral radiculopathy at L5 , Spinal stenosis, unspecified spinal region Take 1 tablet by mouth every 6 (six) hours if needed for severe pain for up to 5 days 20 tablet 2024 12/04/2024 Active Start: 10-25-2024 End: 10-30-2024 take 1 tablet by mouth every six hours for pain HYDROcodone-acetaminophen ([place]) 5-325 MG tablet Indications: Sciatica of left side , Spinal stenosis, unspecified spinal region Take 1 tablet by mouth every 6 (six) hours if needed for severe pain for up to 5 days 20 tablet 10/25/2024 10/30/2024 Active Start: 04-16-2022 End: 04-20-2025 take 1 tablet by mouth every six hours for pain HYDROcodone-acetaminophen ([place]) 5-325 MG tablet Indications: Spinal stenosis, unspecified spinal region , Sciatica of left side Take 1 tablet by mouth every 6 (six) hours if needed for severe pain for up to 5 days 20 tablet 10/07/2024 10/12/2024 Active acetaminophen 325 mg / oxyCODONE hydrochloride 5 mg oral tablet (20 sources) Opioid Agonist Start: 04-18-2025 End: 05-07-2025 take 1 tablet by mouth every six hours as needed Oxycodone-Acetaminophen (Percocet) 5-325 mg tablet Active 1 TAB PO Every 6 hours as needed April 20, 2025 12:00am Complies with drug therapy Start: 03-31-2025 End: 04-16-2025 take 1 tablet by mouth every six hours for pain oxyCODONE-acetaminophen (Percocet) 5-325 MG tablet Indications: Lumbosacral radiculopathy at L5 , Abnormal MRI, lumbar spine Take 1 tablet by mouth every 6 (six) hours if needed for severe pain for up to 5 days 15 tablet 04/05/2025 04/10/2025 Active Start: 02-03-2025 End: 02-10-2025 take 1 tablet by mouth every four hours as needed for pain oxyCODONE-acetaminophen (PERCOCET) 5-325 mg tablet Indications: Chronic bilateral low back pain with left-sided sciatica Take 1 tablet by mouth every 4 hours as needed for pain (for pain.) for up to 7 days. 21 tablet 02/03/2025 02/10/2025 Active Start: 01-12-2025 End: 01-26-2025 take 1 tablet by mouth every six hours as needed for pain oxyCODONE-acetaminophen (PERCOCET) 5-325 mg tablet Indications: Radiculopathy, lumbar region Take 1 tablet by mouth every 6 hours as needed for pain for up to 7 days. Patient should start on January 19, 2025. 28 tablet 01/19/2025 01/26/2025 Discontinued [id number] 200 actuat albuterol 0.09 mg/actuat metered dose inhaler (20 sources) beta2-Adrenergic Agonist Start: 03-01-2024 End: 08-11-2024 take 2 puff(s) by inhalation every four hours for wheezing albuterol HFA (ProAir HFA) 90 mcg/act inhaler Indications: Moderate asthma with exacerbation, unspecified whether persistent (HCC) Inhale 2 puffs every 4 (four) hours if needed for shortness of breath or wheezing 08/11/2024 Active Start: 10-21-2023 take 2 puff(s) by in halation every four hours for wheezing albuterol HFA (ProAir HFA) 90 mcg/act inhaler Indications: Moderate asthma with exacerbation, unspecified whether persistent (CMS/HCC) Inhale 2 puffs every 4 (four) hours if needed for shortness of breath or wheezing 18 g 3 10/21/2023 Active Start: 05-21-2019 take 1 puff(s) by in halation every four to six hours as needed for wheezing Albuterol Sulfate 90 mcg/actuation Hfa Aerosol Inhaler Active 2 PUFF INHALATION EVERY 4-6 HOURS as needed for Shortness Of Breath Or Wheezing May 21, 2019 12:00am Complies with drug therapy Start: 03-31-2018 PROAIR HFA 90 mcg/actuation inhaler Inhale 2 Puffs as instructed as needed. 03/31/2018 Active take 2 puff(s) by in halation every four hours as needed ProAir HFA 108 (90 Base) MCG/ACT 2 puffs as needed Inhalation every 4 hrs Active Comment on above: Inhale 2 Puffs as in structed as needed. ascorbic acid 1000 mg oral tablet (20 sources) Vitamin C Start: 09-25-2021 take 1 tablet by mouth once daily Ascorbic Acid (Vitamin C) (Vitamin C) 1,000 mg Tablet Active 1000 MG PO Daily September 25, 2021 1:00am Complies with drug therapy aspirin 81 mg chewable tablet (20 sources) Platelet Aggregation Inhibitor, Nonsteroidal Anti-inflammatory Drug Start: 06-05-2023 aspirin 81 mg Chew Tab 81 mg = 1 tab(s), Chewed, Daily, Refills(s) 0, Prophylaxis Start Date: 06/05/23 Status: Ordered Start: 09-25-2021 take 1 capsule by mo [facility] once daily Aspirin 81 mg Capsule Active 81 MG PO Daily September 25, 2021 1:00am Complies with drug therapy Start: 03-05-2011 take 1 tablet by mouth once da david aspirin, enteric coated (ECOTRIN LOW STRENGTH) 81 mg ORAL EC tablet Take 1 tablet by mouth once daily. 0 03/05/2011 Active Comment on above: Take 1 tablet by larisa once daily. Centrum - (4 sources) Centrum - as dir ected Orally Active CENTRUM ECHINACEA CAPSULE 100MG PO (20 sources) Start: 07-20-2002 CENTRUM ECHINACEA CAPSULE 100MG PO 0 07/20/2002 Active Start: 07-20-2002 CENTRUM ECHINA CEA CAPSULE 100MG PO cetirizine hydrochloride 10 mg oral tablet (1 source) Histamine-1 Receptor Antagonist Start: 11-05-2023 End: 02-03-2024 take 1 tablet by mouth in the morning cetirizine (ZyrTEC) 10 MG tablet Indications: Dysfunction of Eustachian tube, unspecified laterality Take 1 tablet (10 mg) by mouth in the morning. 30 tablet 2 11/05/2023 02/03/2024 Active famotidine 20 mg oral tablet (20 sources) Histamine-2 Receptor Antagonist Start: 05-21-2019 End: 04-06-2024 take 1 tablet by mouth twice daily Famotidine 20 mg tablet Active 20 MG PO Twice daily May 21, 2019 12:00am Complies with drug therapy Start: 05-21-2019 End: 04-20-2025 take 1 tablet by mouth once daily in the evening as needed for gastroesophageal reflux disease Famotidine 20 mg tablet Discontinued 20 MG PO Every evening as needed for Heartburn May 21, 2019 12:00am April 20, 2025 4:03pm take 1 tablet by lairsa every twenty-four hours Famotidine 40 MG 1 tablet Orally Once a day Active Comment on above: TAKE 1 TABLET TWICE A DAY Take 1 tablet by larisa th twice daily. FLUoxetine 40 mg oral capsule (20 sources) Serotonin Reuptake Inhibitor Start: 09-25-2021 take 1 capsule by mouth once daily Fluoxetine 40 mg capsule Active 40 MG PO Daily September 25, 2021 1:00am Complies with drug therapy Start: 11-20-2009 fluoxetine hcl (PROZAC 20 MG CAP) 3 tabs daily 0 0 11/20/2009 Active Comment on above: 3 tabs daily fluticasone propionate 0.05 mg/actuat metered dose nasal spray (20 sources) Corticosteroid Start: 11-05-2023 End: 11-04-2024 take 2 spray(s) nasal route in the morning fluticasone (Flonase) 50 MCG/ACT nasal spray Indications: Dysfunction of Eustachian tube, unspecified laterality Administer 2 sprays into each nostril in the morning. Shake gently. Before first use, prime pump. After use, clean tip and replace cap.. 16 g 11 11/05/2023 Active Start: 05-21-2019 fluticasone (F LONASE) 50 mcg/actuation nasal spray Use in the nose. 05/21/2019 Active Start: 05-21-2019 End: 04-20-2025 Fluticasone Propionate 50 mcg/actuation spray,suspension Discontinued 1 SPRAY INTRANASAL Daily May 21, 2019 12:00am April 20, 2025 4:06pm take 1 spray(s) nasa l route once daily Flonase 50 MCG/DOSE 1 spray in each nostril Nasally Once a day Active Comment on above: Use in the nose. Fluticasone Propion-Salmeterol (20 sources) Corticosteroid, beta2-Adrenergic Agonist Start: take 1 puff(s) by inhalation twice daily Fluticasone Propion-Salmeterol (Advair Hfa) 230-21 mcg/actuation HFA aerosol inhaler Active 2 PUFF INHALATION Twice daily April 20, 2025 12:00am Complies with drug therapy Start: 04-20-2025 take 1 puff(s) by in halation twice daily Start: 10-29-2024 Advair HFA 230 -21 MCG/ACT inhaler Indications: Moderate asthma with exacerbation, unspecified whether persistent (HCC) USE 2 INHALATIONS TWICE A DAY 36 g 3 10/29/2024 Active Start: 08-11-2024 take 2 puff(s) by in halation in the morning fluticasone-salmeterol (Advair HFA) 230-21 MCG/ACT inhaler Indications: Moderate asthma with exacerbation, unspecified whether persistent (CMS/HCC) Inhale 2 puffs in the morning and 2 puffs before bedtime. 08/11/2024 Active Start: 11-04-2023 End: 08-11-2024 Advair HFA 230-21 MCG/ACT in haler Indications: Moderate asthma with exacerbation, unspecified whether persistent (CMS/HCC) USE 2 INHALATIONS TWICE A DAY 36 g 3 11/04/2023 08/11/2024 Discontinued (Reorder) Start: 05-21-2019 take 1 puff(s) by in halation twice daily Fluticasone Propion-Salmeterol 230-21 mcg/actuation HFA aerosol inhaler Active 2 PUFF INHALATION Twice daily May 21, 2019 12:00am Complies with drug therapy Start: 05-21-2019 take 1 puff(s) by in halation twice daily Start: 05-21-2019 take 1 puff(s) by in halation twice daily Fluticasone Propion-Salmeterol Active 2 PUFF INHALATION Twice daily May 21, 2019 12:00am Start: 05-21-2019 End: 05-21-2019 Fluticasone Propion-Salmeter ol (Advair Hfa) 230-21 mcg/actuation HFA aerosol inhaler Discontinued May 21, 2019 12:00am May 21, 2019 4:27pm Start: 03-31-2018 take 4 puff(s) by in halation once daily ADVAIR HFA 115-21 mcg/actuation inhaler Inhale 4 Puffs as instructed once daily. 03/31/2018 Active Advair Diskus 25 0/50 250/50 1 puff Inhalation as directed Not-Taking Comment on above: Inhale 4 Puffs as in structed once daily. gabapentin 800 mg oral tablet (20 sources) Anti-epileptic Agent Start: 04-18-2025 take 1.5 tablets by mouth in the morning, then take 1.5 tablets by mouth in the evening, then take 1.5 tablets by mouth at bedtime gabapentin (Neurontin) 800 MG tablet Indications: Sciatica of left side , Pain Take 1.5 tablets (1,200 mg) by mouth in the morning and 1.5 tablets (1,200 mg) in the evening and 1.5 tablets (1,200 mg) before bedtime. 360 tablet 3 04/18/2025 Active Start: 09-03-2024 End: 01-23-2025 take 1.5 tablets by mouth in the morning, then take 1.5 tablets by mouth in the evening, then take 1.5 tablets by mouth at bedtime gabapentin (Neurontin) 800 MG tablet Indications: Sciatica of left side , Pain Take 1.5 tablets (1,200 mg) by mouth in the morning and 1.5 tablets (1,200 mg) in the evening and 1.5 tablets (1,200 mg) before bedtime. 405 tablet 10/25/2024 12/28/2024 Discontinued Start: 08-11-2024 End: 08-11-2025 take 1 tablet by mouth three times daily Gabapentin 800 mg tablet Active 800 MG PO Three times daily April 20, 2025 12:00am Complies with drug therapy Start: 06-23-2024 End: 06-23-2025 take 1 tablet by mouth in the morning, then take 1 tablet by mouth in the evening, then take 1 tablet by mouth at bedtime gabapentin (Neurontin) 600 MG tablet Indications: Sciatica of left side , Pain Take 1 tablet (600 mg) by mouth in the morning and 1 tablet (600 mg) in the evening and 1 tablet (600 mg) before bedtime. 270 tablet 3 06/23/2024 08/11/2024 Discontinued (Reorder) Start: 04-29-2024 gabapentin (NE URONTIN) 400 mg capsule Take 800 mg by mouth. 3 x times dily 04/29/2024 Active Start: 04-29-2024 gabapentin (NE URONTIN) 400 mg capsule Take 400 mg by mouth. 04/29/2024 Active ibuprofen 800 mg oral tablet (20 sources) Nonsteroidal Anti-inflammatory Drug Start: 05-21-2019 End: 08-11-2024 take 1 tablet by mouth three times daily Ibuprofen 800 mg tablet Active 800 MG PO Three times daily May 21, 2019 12:00am Complies with drug therapy take 1 tablet by larisa th every six hours as needed ibuprofen (MOTRIN) 800 mg tablet Take 80 0 mg by mouth every 6 hours as needed. Active take 1 tablet by larisa th three times daily at mealtime as needed Ibuprofen 400 MG 1 tablet with food or milk as needed Orally Three times a day Active Comment on above: Take 800 mg by mouth every 6 hours as needed. icosapent ethyl 1000 mg oral capsule (20 sources) Start: 09-25-2021 Icosapent Ethyl (Vascepa) 1 gram capsule Active 2 GM PO Twice daily September 25, 2021 1:00am Complies with drug therapy icosapent ethyl (VASCEPA) 1 gram Take 1 g by mouth. 2 caps in the AM and 2 caps in the PM Active take 2 capsules by m outh every twelve hours Vascepa 1 GM 2 capsules with meals Orall y Twice a day Active Comment on above: Take 1 g by mouth. 2 caps in the AM and 2 caps in the PM insulin lispro 100 unt/ml injectable solution (20 sources) Insulin Analog Start: 06-05-2023 HumaLOG 100 units/mL injectable solution See Instructions, Own sliding scale, Refills(s) 0 Start Date: 06/05/23 Status: Ordered Start: 09-30-2022 End: 09-17-2024 HUMALOG U-100 INSULIN 100 un it/mL injection Indications: Mixed hyperlipidemia , Adult onset hypothyroidism , Insulin pump status INJECT 90 UNITS DAILY VIA INSULIN PUMP 90 mL 3 09/17/2024 Active Start: 10-03-2021 End: 09-30-2022 HUMALOG U-100 INSULIN 100 un it/mL injection Indications: Mixed hyperlipidemia , Adult onset hypothyroidism , 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 Active insulin lispro ( HumaLOG) 100 UNIT/ML injection Inject under the skin 3 (three) times a day with meals. 0 Active JOURNAVX 50 mg tablet (3 sources) Start: 05-02-2025 take 1 tablet by mouth every twelve hours JOURNAVX 50 mg tablet Take 1 tablet by mouth every 12 hours. 05/02/2025 Active levothyroxine sodium 0.05 mg oral tablet (20 sources) l-Thyroxin e Start: 06-05-2023 take 1 tablet by mouth once daily Synthroid 50 mcg Tab 50 mcg = 1 tab(s), Oral, Daily, Refills(s) 0, Thyroid Start Date: 06/05/23 Status: Ordered Start: 05-21-2019 take 2 tablets by [facility] once daily Levothyroxine 50 mcg tablet Active 100 MCG PO Daily May 21, 2019 12:00am Complies with drug therapy Start: 05-21-2019 take 100 ug by mouth once evelina y Levothyroxine Active 100 MCG PO Daily May 21, 2019 12:00am take 1 tablet by [facility] once daily in the morning Levothyroxine Sodium 50 MCG 1 tablet in the morning on an empty stomach Orally Once a day Active Comment on above: TAKE 2 TABLETS DAILY lisinopril 20 mg oral tablet (20 sources) Angiotensin Converting Enzyme Inhibitor Start: 05-21-2019 take 1 tablet by mouth once daily Lisinopril 20 mg tablet Active 20 MG PO Daily May 21, 2019 12:00am Complies with drug therapy Start: 08-30-2014 take 4 tablets by mo [facility] once daily lisinopril (ZESTRIL) 2.5 mg tablet Take 4 tablets by mouth once daily. 90 tablet 3 08/30/2014 Active Comment on above: Take 4 tablets by mo [facility] once daily. Magnesium (1 source) Magnesium Active methocarbamol 500 mg oral tablet (16 sources) Muscle Relaxant Start: End: take 1 tablet by mouth three times daily methocarbamol (ROBAXIN) 500 mg tablet Take 1 tablet by mouth three times a day. 90 tablet 02/03/2025 03/05/2025 Active Start: 01-14-2025 take 1 tablet by larisa th three times daily methocarbamol (ROBAXIN) 750 mg tablet Indications: S/P lumbar spine operation Take 1 tablet by mouth three times a day. 60 tablet 01/14/2025 Active minocycline 100 mg oral tablet (20 sources) Tetracycline-class Drug Start: 03-17-2024 Minocy myers HCl 100 mg tablet Take 1 pill once monthly 8 tablet 03/17/2024 Active take 1 tablet by mouth every 30 days minocycline (Dynacin) 100 MG tablet Take 100 mg by mouth every 30 (thirty) days Active montelukast 10 mg oral tablet (20 sources) Leukotriene Receptor Antagonist Start: 05-21-2019 take 1 tablet by mouth once daily at bedtime Montelukast 10 mg tablet Active 10 MG PO Daily at bedtime May 21, 2019 12:00am Complies with drug therapy Multiple Vitamins-Minerals (MULTIVITAMIN ADULT, MINERALS, PO) (20 sources) Multiple Vitamins-Minerals (MULTIVITAMIN ADULT, MINERALS, PO) Multivitamin Active Multiple Vitamin s-Minerals (MULTIVITAMIN ADULT, MINERALS, PO) Multivitamin 0 Active mupirocin 0.02 mg/mg topical ointment (2 sources) RNA Synthetase Inhibitor Antibacterial Start: 12-28-2024 End: 01-12-2025 mupirocin (BACTROBAN) 2 % ointment Apply 1/2 ointment with a cotton swap in each nostril 2x daily for five days preop 22 g 12/28/2024 01/12/2025 Active ofloxacin 400 mg oral tablet (20 sources) Quinolone Antimicrobial Start: 03-17-2024 ofloxa rosendo (FLOXIN) 400 mg tablet Take 1 pill once monthly 8 tablet 03/17/2024 Active take 1 tablet by mouth every 30 days ofloxacin (Floxin) 400 MG tablet Take 400 mg by mouth every 30 (thirty) days Active ProAir HFA 108 (90 Base) MCG/ACT (3 sources) take 2 puff(s) by inhalation every four hours as needed ProAir HFA 108 (90 Base) MCG/ACT 2 puffs as needed Inhalation every 4 hrs Active rifAMPin 300 mg oral capsule (20 sources) Rifamycin Antibacterial Start: rifAMPin (RIFADIN) 300 mg capsule Take 2 pills once monthly 16 capsule 03/17/2024 Active take 2 capsules by mouth every 3 0 days rifAMPin (Rifadin) 300 MG capsule Take 600 mg by mouth every 30 (thirty) days Active rosuvastatin calcium 20 mg oral tablet (20 sources) HMG-CoA Reductase Inhibitor Start: 05-21-2019 take 1 tablet by mouth once daily Rosuvastatin 20 mg tablet Active 20 MG PO Daily May 21, 2019 12:00am Complies with drug therapy Comment on above: TAKE ONE AND ONE-SANAM F TABLETS ONCE DAILY Subcutaneous Insulin Pump (ACCU-CHEK SPIRIT INSULIN PUMP) misc (20 sources) Start: 08-29-2015 inject 125 mg by subcutaneous injection every hour Subcutaneous Insulin Pump (ACCU-CHEK SPIRIT INSULIN PUMP) misc Basal rates: 24:00 --1.6units/hr; 0300:-2.3units/hr ;06:00-1.8;11:00- 1.8;12:00-2.0;16: 00-2.2;19:00-2.7; 21:00-2.4 ;22:00-1.6. Bolus: 2 unit/6 Gms CHO each meal; correction : 1 unit every 25 mg > 125 mg/dl. Eva hein. hrd: tmp bas at 80% 1 Each 0 08/29/2015 Active Comment on above: Basal rates: 24:00 - -1.6units/hr; 0300:-2.3units/hr;06:00-1.8;11:00-1.8;12:00-2.0;16:00-2.2;19:00-2.7 ;21:00-2.4 ;22:00-1.6. Bolus: 2 unit/6 Gms CHO each meal; correction : 1 unit every 25 mg > 125 mg/dl. Eva hein. hrd: tmp bas at 80% Suzetrigine (5 sources) Start: 05-23-2025 take 1 tablet by mouth twice daily Suzetrigine (Journavx) 50 mg tablet Active 50 MG PO Twice daily 14 May 23, 2025 3:44pm Complies with drug therapy Start: 04-27-2025 End: 05-23-2025 take 1 tablet by mouth twice daily Suzetrigine (Journavx) 50 mg tablet Discontinued 50 MG PO Twice daily 60 April 27, 2025 12:00am May 23, 2025 3:47pm Start: 04-27-2025 take 1 tablet by larisa th twice daily Start: 04-20-2025 End: 04-27-2025 take 2 tablets by mouth every twelve hours, then take 1 tablet by mouth every twelve hours Suzetrigine (Journavx) 50 mg tablet Discontinued 50 MG PO Every 12 hours 14 April 20, 2025 12:00am April 27, 2025 3:35pm take 2 tablets on empty stomach for the first dose, then take 1 tablet every 12 hours tiZANidine 4 mg oral tablet (20 sources) Central alpha-2 Adrenergic Agonist Start: 09-03-2024 End: 04-09-2025 tiZANidine (ZANAFLEX) 4 mg tablet 4 mg. 10/07/2024 Active triamcinolone acetonide 10 mg/ml injectable suspension (20 sources) Corticosteroid Start: 05-18-2024 End: 09-15-2024 triamcinolone acetonide 40 mg injection (KeNALog 10) Start: 02-19-2024 End: 02-18-2025 triamcinolone acetonide (REMY ALOG) 0.1 % cream Indications: Granuloma annulare Apply 1 application to affected area two times a day. (No more than 21 days per month) 453.6 g 3 02/19/2024 02/18/2025 Active Start: 01-01-2023 Kenalog-40 Apr, 40 mg Start: 10-23-2021 Kenalog -40 mg Oct, 40 mg Comment on above: Apply 1 application to affected area two times a day. (No more than 21 days per month) Vitamin C 1000 MG (4 sources) take 1 tablet by mouth once daily Vitamin C 1000 MG 1 tablet Orally Once a day Active Completed/Discontinued Medications Medication Drug Class(es) Dates Sig (Normalized) Sig (Original) azithromycin 250 mg oral tablet (4 sources) Macrolide Antimicrobial Zithromax Z-Rivas 250 MG 2 tablets on the first day, then 1 tablet daily for 4 days Orally Once a day for 5 day(s) Not-Taking clindamycin 300 mg oral capsule (7 sources) Lincosamide Antibacterial Start: 09-27-2021 End: 04-20-2025 take 1 capsule by mouth four times daily Clindamycin Hcl 300 mg capsule Discontinued 300 MG PO Four times daily 40 September 27, 2021 1:00am April 20, 2025 4:06pm cyclobenzaprine hydrochloride 10 mg oral tablet (20 sources) Muscle Relaxant Start: 05-21-2019 End: 04-20-2025 take 1 tablet by mouth three times daily as needed for muscle spasms Cyclobenzaprine 10 mg tablet Discontinued 10 MG PO Three times daily as needed for muscle spasms May 21, 2019 12:00am April 20, 2025 4:06pm take 1 tablet by larisa th every twenty-four hours Cyclobenzaprine HCl 10 MG 1 tablet at bedtime as needed Orally Once a day Active Comment on above: Take 10 mg by mouth three times daily as needed. dextromethorphan hydrobromide 1.5 mg/ml / pyrilamine maleate 1.5 mg/ml oral solution (4 sources) Uncompetitive K-mnbecs-L-aspartate Receptor Antagonist, Sigma-1 Agonist [place] DM 7.5-7.5 MG/5ML 20 ml Orally every 6 to 8 hours prn cough for 3 days Not-Taking doxycycline hyclate 100 mg oral capsule (18 sources) Tetracycline-class Drug Start: End: take 1 capsule by mouth twice daily doxycycline hyclate (VIBRAMYCIN) 100 mg capsule Take 100 mg by mouth twice daily. 0 04/23/2019 03/17/2024 Discontinued (Course of therapy completed) Comment on above: Take 100 mg by mouth twice daily. folic acid 1 mg oral tablet (15 sources) Start: End: take 1 tablet by mouth once daily folic acid 1 mg tablet Take 1 tablet by mouth once daily. 0 08/14/2016 02/16/2024 Discontinued Comment on above: Take 1 tablet by larisa th once daily. guaiFENesin 20 mg/ml oral solution (20 sources) Start: 018 End: 024 take 10 mL by mouth every four hours as needed DIABETIC TUSSIN EX 100 mg/5 mL syrup Take 10 mL by mouth every 4 hours as needed. 3 04/13/2018 03/17/2024 Discontinued (Course of therapy completed) Start: 02-13-2018 take 2 tablets by mo ut[facility] once daily as needed MUCINEX 600 mg 12 hr tablet Take 2 tablets by mouth once daily as needed. 0 02/13/2018 Active Start: 02-13-2018 take 1 tablet by larisa every twelve hours Mucinex 600 MG 1 tablet as needed Orally every 12 hrs for 5 days Feb, Not-Taking Comment on above: Take 10 mL by mouth every 4 hours as needed. Take 2 tablets by mo ut[facility] once daily as needed. methotrexate 2.5 mg oral tablet (15 sources) Folate Analog Metabolic Inhibitor Start: 2015 End: 2023 take 4 tablets by mouth every week methotrexate 2.5 mg tablet Take 4 tablets by mouth once each week. 0 08/14/2016 02/16/2024 Discontinued Comment on above: Take 4 tablets by mo ut[facility] once each week. methylPREDNISolone (6 sources) Corticosteroid Start: 2024 End: 2024 methylPREDNISolone (MEDROL, RIVAS,) 4 mg Dose-Pack Indications: Radiculopathy, lumbar region As instructed per package 21 tablet 03/07/2025 03/13/2025 Start: 03-07-2025 End: 03-13-2025 methylPREDNISolone (MEDROL, RIVAS,) 4 mg Dose-Pack Indications: Radiculopathy, lumbar region As instructed per package 21 tablet 03/07/2025 03/13/2025 Active Medrol (Rivas) 4 M G as directed Orally for daily dose take half with breakfast half with dinner Not-Taking naproxen 500 mg oral tablet (7 sources) Nonsteroidal Anti-inflammatory Drug Start: 04-16-2022 End: 04-20-2025 take 1 tablet by mouth twice daily as needed for pain Naproxen (Naprosyn) 500 mg tablet Discontinued 500 MG PO Twice daily as needed for pain April 16, 2022 12:00am April 20, 2025 4:05pm tadalafil 20 mg oral tablet (18 sources) Phosphodiesterase 5 Inhibitor Start: 07-19-2016 End: 03-17-2024 CIALIS 20 mg tab(s) TAKE DIRECTED 36 tablet 3 07/19/2016 03/17/2024 Discontinued (Course of therapy completed) Comment on above: TAKE DIRECTED 60 actuat tiotropium 0.65234 mg/actuat inhalation spray (18 sources) Anticholinergic Start: 05-11-2018 End: 03-17-2024 take 1.25 ug by inhalation once daily SPIRIVA RESPIMAT 1.25 mcg/actuation mist Inhale 2 Puffs as instructed once daily. 0 05/11/2018 03/17/2024 Discontinued (Course of therapy completed) Comment on above: Inhale 2 Puffs as in structed once daily. traMADol hydrochloride 50 mg oral tablet (7 sources) Opioid Agonist Start: 05-21-2019 End: 04-20-2025 Tramadol 50 mg tablet Discontinued 50 MG PO As Directed as needed for Pain May 21, 2019 12:00am April 20, 2025 4:05pm Problems Active Problems Problem Classification Problem Date Documented Da te Episodic/Chronic Abdominal pain (2 sources) Flank pain; Translations: [Unspecified abdominal pain] 08-11-2024 Episodic Anxiety disorders (20 sources) Anxiety; Translations: [Anxiety disorder, unspecified] Onset: 3 06-05-2023 Chronic Asthma (20 sources) Uncomplicated asthma; Translations: [Unspecified asthma, uncomplicated] Onset: 3 Resolved: 3 06-05-2023 Chronic Cardiac dysrhythmias (20 sources) Multiple premature ventricular complexes; Translations: [Ventricular premature depolarization] Onset: 3 03-19-2023 Chronic Diabetes mellitus with complications (20 sources) Type 1 diabetes mellitus; Translations: [Type I (juvenile type) diabetes mellitus without mention of complication, uncontrolled] Onset: 2 02-27-2004 Chronic Diabetes mellitus without complication (20 sources) Type 1 diabetes mellitus without complications; Translations: [Diabetes mellitus] Onset: 3 Chronic Diabetes mellitus without complication (7 sources) Insulin pump present; Translations: [Presence of insulin pump (external) (internal)] Episodic Disorders of lipid metabolism (20 sources) Mixed hyperlipidemia; Translations: [Mixed hyperlipidemia] Onset: 4 Resolved: 3 06-12-2004 Chronic Esophageal disorders (20 sources) Gastroesophageal reflux disease; Translations: [Gastro-esophageal reflux disease without esophagitis] Onset: 3 03-19-2023 Chronic Essential hypertension (20 sources) Essential (primary) hypertension; Translations: [Hypertensive disorder] Onset: 2 06-05-2023 Chronic Mood disorders (20 sources) Major depressive disorder; Translations: [Major depressive disorder, single episode, unspecified] Onset: 4 04-29-2024 Chronic Osteoarthritis (5 sources) Localized, primary osteoarthritis of the wrist; Translations: [Primary osteoarthritis, left wrist] Chronic Other connective tissue disease (6 sources) Unspecified rotator cuff tear or rupture of right shoulder, not specified as traumatic; Translations: [Tear of right rotator cuff, unspecified tear extent, unspecified whether traumatic] Onset: 1 Resolved: 1 Episodic Other connective tissue disease (2 sources) Pain in left lower limb; Translations: [Pain in left leg] 09-03-2024 Episodic Other inflammatory condition of skin (1 source) Plaque psoriasis; Translations: [Psoriasis vulgaris] 12-31-2023 Chronic Other inflammatory condition of skin (3 sources) Granuloma annulare; Translations: [Granuloma annulare] 02-19-2024 Episodic Other male genital disorders (20 sources) Secondary erectile dysfunction; Translations: [Male erectile dysfunction, unspecified] Onset: 5 07-22-2005 Chronic Other male genital disorders (20 sources) Disorder of penis; Translations: [Other specified disorders of penis] Onset: 5 08-08-2005 Chronic Other nervous system disorders (20 sources) Neuropathy; Translations: [Polyneuropathy, unspecified] Onset: 4 04-29-2024 Chronic Other nervous system disorders (6 sources) Chronic low back pain; Translations: [Other chronic pain] 02-03-2025 Chronic Other nervous system disorders (3 sources) Other chronic pain; Translations: [Chronic bilateral low back pain with left-sided sciatica] Onset: 5 Chronic Other nervous system disorders (5 sources) Chronic pain; Translations: [Other chronic pain] 04-20-2025 Chronic Other non-traumatic joint disorders (20 sources) Derangement of right shoulder joint; Translations: [Other specific joint derangements of right shoulder, not elsewhere classified] Onset: 9 10-21-2023 Chronic Other non-traumatic joint disorders (2 sources) Pain in right shoulder Onset: 1 Resolved: 1 Episodic Other non-traumatic joint disorders (4 sources) Pain in unspecified wrist; Translations: [PAIN IN UNSPECIFIED WRIST] Onset: 2 Episodic Other non-traumatic joint disorders (2 sources) Pain in left wrist Episodic Other non-traumatic joint disorders (2 sources) Pain in left knee; Translations: [Pain in joint, lower leg] 12-08-2024 Episodic Other nutritional; endocrine; and metabolic disorders (16 sources) Obese class I; Translations: [Obesity, Class I, BMI 30-34.9] Onset: 5 01-06-2025 Chronic Other screening for suspected conditions (not mental disorders or infectious disease) (5 sources) Abnormal findings on diagnostic imaging of other specified body structures; Translations: [ABNORML FIND DX IMG OTH BODY STRUC] Onset: 2 Chronic Other skin disorders (1 source) Eruption; Translations: [Rash and other nonspecific skin eruption] 02-16-2024 Episodic Other upper respiratory infections (20 sources) Chronic pansinusitis; Translations: [Chronic pansinusitis] Onset: 3 Resolved: 3 10-21-2023 Chronic Phlebitis; thrombophlebitis and thromboembolism (7 sources) Thrombosis of vein of upper limb; Translations: [Acute embolism and thrombosis of superficial veins of unspecified upper extremity] 04-16-2022 Episodic Residual codes; unclassified (8 sources) Pain; Translations: [Pain, unspecified] 08-11-2024 Episodic Residual codes; unclassified (2 sources) Edema; Translations: [Edema, unspecified] 09-03-2024 Episodic Skin and subcutaneous tissue infections (7 sources) Cellulitis; Translations: [Cellulitis, unspecified] 09-26-2021 Episodic Spondylosis; intervertebral disc disorders; other back problems (12 sources) Post-laminectomy syndrome; Translations: [Postlaminectomy syndrome, not elsewhere classified] Onset: 5 04-20-2025 Chronic Spondylosis; intervertebral disc disorders; other back problems (20 sources) Low back pain co-occurrent with neuralgia of left sciatic nerve; Translations: [Lumbago with sciatica, left side] Onset: 4 02-19-2024 Episodic Thyroid disorders (20 sources) Acquired hypothyroidism; Translations: [Hypothyroidism, unspecified] Onset: 1 Resolved: 9 Chronic Unclassified (1 source) Unknown / UNK(Unknown) Onset: 8 Unclassified (1 source) Chronic midline low back pain without sciatica; Translations: [Chronic midline low back pain without sciatica] Onset: 5 Past or Other Problems Problem Classification Problem Date Documented Da te Episodic/Chronic Complications of surgical procedures or medical care (16 sources) Difficult intubation; Translations: [Failed or difficult intubation, initial encounter] Onset: 01-12-2025 01-12-2025 Episodic Fluid and electrolyte disorders (20 sources) Hypokalemia; Translations: [Hypokalemia] Onset: 06-12-2004 06-12-2004 Episodic Other bone disease and musculoskeletal deformities (1 source) Disorder of bone, unspecified; Translations: [Disorder of bone, unspecified] Onset: 06-25-2024 Episodic Other connective tissue disease (20 sources) Impingement syndrome of shoulder region; Translations: [Impingement syndrome of unspecified shoulder] Onset: 03-16-2019 10-21-2023 Episodic Other nervous system disorders (20 sources) Skin sensation disturbance; Translations: [Other disturbances of skin sensation] Onset: 03-19-2023 Resolved: 03-19-2023 03-19-2023 Episodic Other non-traumatic joint disorders (20 sources) Shoulder joint pain; Translations: [Pain in unspecified shoulder] Onset: 03-16-2019 10-21-2023 Episodic Other nutritional; endocrine; and metabolic disorders (20 sources) H/O: hypothyroidism; Translations: [Personal history of other endocrine, nutritional and metabolic disease] Onset: 10-21-2023 06-05-2023 Episodic Other screening for suspected conditions (not mental disorders or infectious disease) (20 sources) Thyroid function tests abnormal; Translations: [Abnormal results of thyroid function studies] Onset: 02-03-2006 Resolved: 11-27-2018 11-27-2018 Episodic Other upper respiratory disease (20 sources) Allergic rhinitis; Translations: [Allergic rhinitis, unspecified] Onset: 03-19-2023 Resolved: 03-19-2023 03-19-2023 Chronic Other upper respiratory disease (20 sources) Deviated nasal septum; Translations: [Deviated nasal septum] Onset: 03-19-2023 Resolved: 10-21-2023 Episodic Otitis media and related conditions (20 sources) Dysfunction of eustachian tube; Translations: [Unspecified Eustachian tube disorder, unspecified ear] Onset: 03-19-2023 03-19-2023 Episodic Syncope (1 source) Syncope and collapse; Translations: [Syncope and collapse] Onset: 09-21-2018 Episodic Unclassified (1 source) [id number] Onset: 10-14-2018 Unclassified (1 source) Chronic sinusitis; Translations: [Chronic sinusitis] Onset: 06-26-2023 Unclassified (20 sources) Type 1 diabetes mellitus without complication; Translations: [Diabetes mellitus type 1, uncontrolled, without complications] Onset: 02-13-2016 Resolved: 11-27-2018 11-27-2018 Unclassified (2 sources) Preprocedural examination done 12-28-2024 Results Test Name Value Interpretation Reference Range Facility [facility] 05-16-2025 [facility] Telephone (NIQ) -------- JACQUIE LANTIGUA ([id number]) 1965 M Date Time Provider Department 05/16/25 MALIHA BERG During your visit today, we recorded the following information about you: Alexandria Cook 05/16/2025 2:18 PM Signed Patient called to let Dr Berg know that he completed his MRI today at [facility] [address] in [place]. Michael Hearn, CAMILA 05/16/2025 2:49 PM Signed Called [facility] [employer] and spoke with lamont. Requested MRI images be sent to us. Lamont informed us that they sent them this morning after completion. Tess Villasenor APRN.ROD WELDER 05/19/2025 8:48 AM Signed Addended by: TESS VILLASENOR on: 05/19/2025 08:48 AM Modules accepted: Orders Allergies As of Date: 05/16/2025 Noted Allergy Reaction HUMIRA (ADALIMUMAB) 08/20/2017 8 - GI Upset METHOTREXATE 05/21/2019 16 - Unknown RED DYE 07/04/2002 16 - Unknown Date Reviewed: 05/05/2025 Reviewed by: Jackie Linares OCCA - Fully Assessed Reason for Visit: Results - Mri [3561] Primary Visit Diagnosis:Radiculopathy, lumbar region [M54.16] Order(s):SPINE INTERVENTION PROCEDURE [[id number]] Order #: [id number] Prescriptions as of 05/19/2025 - JOURNAVX 50 mg tablet Take 1 tablet by mouth every 12 hours. - methocarbamol (ROBAXIN) 750 mg tablet Take [...] INSULIN PUMP) misc Basal rates: 24:00 --1.6units/hr; 0300:-2.3units/hr;06:00- 1.8;11:00-1.8;12:00-2.0; 16:00-2.2;19:00-2.7;21:0 0-2.4 ;22:00-1.6. Bolus: 2 unit/6 Gms CHO each [...] 100MG PO Problem List As Of Date 05/16/2025 Noted Resolved Type 1 diabetes mellitus with [...] pain without sciatica *03/01/2025 Encounter Status:Closed by MICHAEL HEARN on 05/16/25 Normal [facility] ISTAT XRay CREon 05-16-2025 ISTAT GFR >60.0 Normal [facility] Comment on above: Result Comment: PERF ORMED BY: [place] [address] PATHOLOGIST TEST MANAGER ANISH VILLAGRAN M.D. Performed By: #### I SCRE #### [address] MR lumbar spine wo/w conon 0 05-16-2025 MR lumbar spine wo/w con [facility] [place] [address] [place] [address] XRay Report Signed Patient: Jacquie Lantigua MR#: [id number] 83 : 1965 Acct:[id number] Age/Sex: 59 / M ADM Date: 05/16/25 Loc: Room: Type: [facility] Attending Dr: Rene Castillo MD Copies to: Rene Castillo MD Ordering Provider: Rene Castillo MD Date of Service: 05/16/25 MR/MR lumbar spine wo/w con: M96.1 - Postlaminectomy syndrome, not elsewhere classified ([id number]) XR/XR pre/post mri xray: M96.1 M54.16. M47.817 XR pre/post mri xray, MR lumbar spine wo/w con 05/16/2025 11:58 AM SIGNS AND SYMPTOMS: Low back pain radiating into left gluteal region and down left leg, numbness and tingling, weakness. History of recent discectomy. PROTOCOL: Multiplanar multisequence MR images of the lumbar spine with and without IV contrast. Frontal and lateral radiographs of the lumbar spine. CONTRAST: 17 mL of intravenous ProHance COMPARISON: 06/02/2024 FINDINGS: Radiographs of the lumbar spine: There is mild disc height loss at L4-5 and L5-S1. Facet degenerative changes are present, greatest at L4-5. No fracture or subluxation. The vertebral body heights are preserved. Mild degenerative changes are noted in the hips and sacroiliac joints. MRI lumbar spine: The bones of the lumbar spine are in anatomic alignment. There is preservation of vertebral body heights. There is disc desiccation and mild disc height loss at L4-5 and L5-S1 as above. Atypical hemangiomas are noted at T12, L1, L2, and L4. These are similar to the prior exam. There is Modic type I endplate edema at L5-S1 on the left. The conus terminates at the superior endplate of the L2 vertebral body level. No epidural or paraspinous fluid collection is appreciated. At T12-L1: There is a normal disc, central canal, and neural foramen. At L1-L2: There is a normal disc, central canal, and neural foramen. At L2-L3: There is a normal disc, central canal, and neural foramen. At L3-L4: There is a broad-based disc bulge with facet hypertrophy. There is mild spinal canal narrowing and mild bilateral neural foraminal narrowing. This is similar to the prior exam. At L4-L5: There is a circumferential disc bulge with a right central disc protrusion. There is right greater than left facet hypertrophy with small bilateral facet effusions. There is moderate narrowing of the spinal canal with mild left and moderate right neural foraminal narrowing similar to the prior exam. At L5-S1: There is a focal left subarticular and foraminal disc protrusion. This may represent residual/recurrent disc protrusion. There is facet hypertrophy with a circumferential disc bulge. There is severe left and moderate right neural foraminal narrowing with mild to moderate spinal canal stenosis similar to the prior exam. There is mass effect on the exiting left L5 nerve roots. There is evidence of previous left hemilaminotomy. XR/XR pre/post mri xray IMPRESSION: At L5-S1: There is a focal left subarticular and foraminal disc protrusion. This may represent residual/recurrent disc protrusion. There is facet hypertrophy with a circumferential disc bulge. There is severe left and moderate right neural foraminal narrowing with mild to moderate spinal canal stenosis similar to the prior exam. There is mass effect on the exiting left L5 nerve roots. There is evidence of previous left hemilaminotomy. At L4-L5: There is a circumferential disc bulge with a right central disc protrusion. There is right greater than left facet hypertrophy with small bilateral facet effusions. There is moderate narrowing of the spinal canal with mild left and moderate right neural foraminal narrowing similar to the prior exam. No abnormal postcontrast enhancement. Impression dictated by: Florian Angela M.D. 05/16/2025 4:56 PM Dictation Location: [place] [address] Transcribed By: [facility] 05/16/251655 Dictated By: Florian Angela II, MD 05/16/25 164 Signed By: 05/16/251655 Normal [facility] No Panel InformationOrdered By: Rene Castillo on 05-16-2025 Bedside Estimated GFR (eGFR) > 60.0 [facility] Whole blood creatinine measu rementOrdered By: Rene Castillo on 05-16-2025 Creatinine [Mass/Vol] 0.9 mg/dL 0.6-1.3 [facility] Comment on above: ER/ESD physician is notified/shown all ISTAT results.Critical values may be confirmed by laboratory testing ifdeemed necessary by ER attending doctor. Result Comment: ER/E SD physician is notified/shown all ISTAT results. Critical values may be confirmed by laboratory testing if deemed necessary by ER attending doctor. Performed By: #### I SCRE #### [facility] [address] [place] [address] X-ray reportOrdered By: Florian Angela on 05-16-2025 Study report [facility] [place] [address] XRay Report Signed Patient: Jacquie Lantigua MR#: [id number] : 1965 Acct:[id number] Age/Sex: 59 / M ADM Date: 5 Loc: MR Room: Type: [facility] Attending Dr: Rene Castillo MD Copies to: Rene Castillo MD~ Ordering Provider: Rene Castillo MD Date of Service: 05/16/25 MR/MR lumbar spine wo/w con: M96.1 - Postlaminectomy syndrome, not elsewhere classified ([id number]) XR/XR pre/post mri xray: M96.1 M54.16. M47.817 XR pre/post mri xray, MR lumbar spine wo/w con 05/16/2025 11:58 AM SIGNS AND SYMPTOMS: Low back pain radiating into left gluteal region and down left leg, numbness and tingling, weakness. History of recent discectomy. PROTOCOL: Multiplanar multisequence MR images of the lumbar spine with and without IV contrast. Frontal and lateral radiographs of the lumbar spine. CONTRAST: 17 mL of intravenous ProHance COMPARISON: 06/02/2024 FINDINGS: Radiographs of the lumbar spine: There is mild disc height loss at L4-5 and L5-S1. Facet degenerative changes are present, greatest at L4-5. No fracture or subluxation. The vertebral body heights are preserved. Mild degenerative changes are noted in the hips and sacroiliac joints. MRI lumbar spine: The bones of the lumbar spine are in anatomic alignment. There is preservation of vertebral body heights. There is disc desiccation and mild disc height loss at L4-5 and L5-S1 as above. Atypical hemangiomas are noted at T12, L1, L2, and L4. These are similar to the prior exam. There is Modic type I endplate edema at L5-S1 on the left. The conus terminates at the superior endplate of the L2 vertebral body level. No epidural or paraspinous fluid collection is appreciated. At T12-L1: There is a normal disc, central canal, and neural foramen. At L1-L2: There is a normal disc, central canal, and neural foramen. At L2-L3: There is a normal disc, central canal, and neural foramen. At L3-L4: There is a broad-based disc bulge with facet hypertrophy. There is mild spinal canal narrowing and mild bilateral neural foraminal narrowing. Thisis similar to the prior exam. At L4-L5: There is a circumferential disc bulge with a right central disc protrusion. There is right greater than left facet hypertrophy with small bilateral facet effusions. There is moderate narrowing of the spinal canal withmild left and moderate right neural foraminal narrowing similar to the prior exam. At L5-S1: There is a focal left subarticular and foraminal disc protrusion. This may represent residual/recurrent disc protrusion. There is facet hypertrophy with a circumferential disc bulge. There is severe left and moderate right neural foraminal narrowing with mild to moderate spinal canal stenosis similar to the prior exam. There is mass effect on the exiting left W8ryhdd roots. There is evidence of previous left hemilaminotomy. XR/XR pre/post mri xray IMPRESSION: At L5-S1: There is a focal left subarticular and foraminal disc protrusion. This may represent residual/recurrent disc protrusion. There is facet hypertrophy with a circumferential disc bulge. There is severe left and moderate right neural foraminal narrowing with mild to moderate spinal canal stenosis similar to the prior exam. There is mass effect on the exiting left X0vwqzy roots. There is evidence of previous left hemilaminotomy. At L4-L5: There is a circumferential disc bulge with a right central disc protrusion. There is right greater than left facet hypertrophy with small bilateral facet effusions. There is moderate narrowing of the spinal canal withmild left and moderate right neural foraminal narrowing similar to the prior exam. No abnormal postcontrast enhancement. Impression dictated by: Florian Angela M.D. 05/16/2025 4:56 PM Dictation Location: [place] [address] Transcribed By: [facility] 05/16/251655 Dictated By: Florian Angela II, MD 05/16/251646 Signed By: 05/16/251655 [facility] Work Phone: CNOVon 05-05-2025 CNOV Office Visit (SPSNAV ) -------- JACQUIE LANTIGUA ([id number]) 1965 M Date Time Provider Department 05/05/25 9:40 AM MALIHA BERG SPSNAV During your visit today, we recorded the following information about you: Maliha Berg MD 05/05/2025 9:54 AM Signed SPINE SURGERY FOLLOW UP This is an in-person visit. SERVICE DATE: 05/05/2025 SURGERY DATE: 01/12/2025 Jacquie Lantigua is a pleasant 59-year-old gentleman [...] Denied weakness. Denied bowel or bladder dysfunction. During last clinic visit he was doing well overall. He was complaining of back pain and occasional left leg pain. Pain medication and muscle significantly helped. Today he is complaining of recurrence of lower back and left leg pain radiating up to the feet. He is following with a local pain management team. He was on narcotics for long time. Currently completing physical therapy. Known history of diabetes mellitus. Was taking Percocet.recently Percocet was stopped and started him on Journavx 50 mg which is helping. Also taking gabapentin 8 interplay of 3 times a day PAIN EVALUATION 05/05/2025 0935 Pain Level: 9 Pain Location: Buttocks-Left down left leg to ankle Description: Sharp;Shooting;Throbbing Duration Amount of Time: 1 Duration Units: Years Frequency: Continuous Intervention/Comfort measure: Medication;Exercise Pain Radiation: to the left foot/feet Aggravating Factors: Standing, Walking, Walking upstairs, Walking downstairs Alleviating Factors: Medications Pain Ratio: Pain in the leg(s) is greater than in the back ANTIPLATELET OR ANTICOAGULATION STATUS: No Patient Entered Questionnaires 02/02/2025 02/27/2025 Spine Questions Pain Location: Other Other Pain Duration: 1 to 5 years Pain over last 6 months: Every day or nearly every day in the past 6 months Symptoms from neck/cervical spine: No Employment Status: Working now Involved in law suit/legal claim: No PROMIS Score Percentiles 02/02/2025 03/09/2025 04/11/2025 Physical Health Physical Function Percentile 8 12 27* Sleep Percentile 14 Fatigue Percentile 46 Pain Interference Percentile 4 02/02/2025 PROMIS SOCIAL ROLE SCORE Social Role Satisfaction Percentile 14 12/28/2024 04/11/2025 PROMIS Global Health Scale Physical Health Percentile 7 4 Mental Health Percentile 5 5 Patient-reported Percentiles provide an indication of how the patient's score ranks in relation to the general population. Higher percentile rankings indicate better function/quality of life. 50th percentile is the average of the general population and indicates half of respondents had a worse score. Descriptive Summary for PROMIS Physical Function T-score = 44 (Percentile 27) Little difficulty - Walk more than a mile (1.6 km). Little difficulty - Do chores such as vacuuming or yard work. Depression Screenin02/02/2025 PHQ-9 Score 7 02/02/2025 PHQ-9 [...] Antalgic DATA REVIEW [facility] records independently reviewed Images independently reviewed with the patient ASSESSMENT/PLAN Jacquie Lantigua is a pleasant 59-year-old gentleman is here in spine surgery c (more content not included)... [facility] XR LUMBAR 4V AP/LAT/ FLEX/EX Ton 05-05-2025 XR LUMBAR 4V AP/LAT/ FLEX/EXT * * *Final Report* * * DATE [...] sacroiliac joint osteophytes. Nonobstructive bowel gas pattern. IMPRESSION: Mild degenerative changes in the lower lumbar spine. Director Of Online Merchandising: CAM Transcribe Date/Time: May 05 2025 10:08P Dictated by : ANA ROCHE DO This examination was interpreted and the report reviewed and electronically signed by: ANA ROCHE DO on May 05 2025 10:26PM EST [id number] Normal [facility] XR Lumbar spine Views W flex ion and W extensionon 05-05-2025 IMPRESSION: Mild degenerative changes in the lower lumbar spine. Director Of Online Merchandising: [employer]a Transcribe Date/Time: May 05 2025 10:08P Dictated by : ANA ROCHE DO This examination was interpreted and the report reviewed and electronically signed by: ANA ROCHE DO on May 05 2025 10:26PM EST [facility] * * *Final Report* * * DATE [...] sacroiliac joint osteophytes. Nonobstructive bowel gas pattern. [facility] Provider, Kingston Piña - 05/05/2025 * * *Final Report* * [...] degenerative changes in the lower lumbar spine. Director Of Online Merchandising: CAM Transcribe Date/Time: May 05 2025 10:08P Dictated by : ANA ROCHE DO This examination was interpreted and the report reviewed and electronically signed by: ANA ROCHE DO on May 05 2025 10:26PM [facility] Study observation (narrative) [facility] XR Lumbar spine Views W flex ion and W extensionOrdered By: [facility] Provider on 05-05-2025 [facility] CNTHERAPYon 04-27-2025 CNTHERAPY OT/PT/Speech Visit (LOPTRM) -------- JACQUIE LANTIGUA ([id number]) 1965 M Date Time Provider Department 04/27/25 5:15 PM CHERY LAND Date Time Provider Department [place] 04/27/2025 5:15 PM [id number] LAND Sarmad Tuan Romero Reason for Visit: Physical Therapy [503] Primary Visit Diagnosis:Chronic midline low back pain without sciatica [M54.50, G89.29] Allergies As of Date: 04/27/2025 Noted Allergy Reaction HUMIRA (ADALIMUMAB) 08/20/2017 8 - GI Upset METHOTREXATE 05/21/2019 16 - Unknown RED DYE 07/04/2002 16 - Unknown Date Reviewed: 02/03/2025 Reviewed by: Jackie Linares OCCA - Fully Assessed Prescriptions as of 04/27/2025 - methocarbamol (ROBAXIN) 750 mg tablet Take [...] INSULIN PUMP) misc Basal rates: 24:00 --1.6units/hr; 0300:-2.3units/hr;06:00- 1.8;11:00-1.8;12:00-2.0; 16:00-2.2;19:00-2.7;21:0 0-2.4 ;22:00-1.6. Bolus: 2 unit/6 Gms CHO each [...] day - CENTRUM ECHINACEA CAPSULE 100MG PO Building Analyst/Supervisor: Addendum Therapy (PT/OT/Speech/Resp) ID: [id number] 04/27/2025 5:48 PM Author: CHERY LAND Signed by CHERY LAND PT on 04/27/2025 at 5:48 PM * * * This document replaces document [id number] * * * Document text: Program_ID:[id number] Access Code: [email or web address] URL: [email or web address]/ Date: 04-27-2025 Prepared By: Chery Land Program Notes self massage to left gluteal with over the counter thera-gun, 2-3 mins as needed Exercises - Active Straight Leg Raise with Quad Set - 1-2 x daily - 7 x weekly - 1 sets - 10-15 reps - Supine Lower Trunk Rotation - 1-2 x daily - 7 x weekly - 1 sets - 10 reps - Sidelying Hip Abduction - 1-2 [...] x weekly - sets - 3 reps - Standing Hip Abduction with Resistance at Ankles and Counter Support - 1 x daily - 7 x weekly - 1-2 sets - 10-15 reps - Hooklying Sequential Leg March and Lower - 1 x daily - 7 x weekly - 1-2 sets - 10-15 reps - Quadruped Alternating Leg Extensions - 1 x daily - 7 x weekly - 1-2 sets - 10-15 reps - Marching Bridge - 1 x daily - 7 x weekly - 1 sets - 10 reps [facility] THERAPY NTon 04-27-2025 THERAPY NT HNO ID: [id number] Author: CHERY LAND PT Service: Physical Therapy Author Type: Physical Therapist Type: Therapy (PT/OT/Speech/Resp) Filed: 04/27/2025 17:48 Note Text: Program_ID:[id number] Access Code: [email or web address] URL: [email or web address]/ Date: 04-27-2025 Prepared By: Chery Land Program Notes self massage to left gluteal with over the counter thera-gun, 2-3 mins as needed Exercises - Active Straight Leg Raise with Quad Set - 1-2 x daily - 7 x weekly - 1 sets - 10-15 reps - Supine Lower Trunk Rotation - 1-2 x daily - 7 x weekly - 1 sets - 10 reps - Sidelying Hip Abduction - 1-2 [...] x weekly - sets - 3 reps - Standing Hip Abduction with Resistance at Ankles and Counter Support - 1 x daily - 7 x weekly - 1-2 sets - 10-15 reps - Hooklying Sequential Leg March and Lower - 1 x daily - 7 x weekly - 1-2 sets - 10-15 reps - Quadruped Alternating Leg Extensions - 1 x daily - 7 x weekly - 1-2 sets - 10-15 reps - Marching Bridge - 1 x daily - 7 x weekly - 1 sets - 10 reps [facility] CNTHERAPYon 04-11-2025 CNTHERAPY OT/PT/Speech Visit (ALEE) -------- JACQUIE LANTIGUA ([id number]) 1965 M Date Time Provider Department 04/11/25 5:15 PM CHERY LAND Date Time Provider Department Center 04/11/2025 5:15 PM [id number] LAND Reason for Visit: PT Progress Note [8446] Primary Visit Diagnosis:Chronic midline low back pain without sciatica [M54.50, G89.29] Allergies As of Date: 04/11/2025 Noted Allergy Reaction HUMIRA (ADALIMUMAB) 08/20/2017 8 - GI Upset METHOTREXATE 05/21/2019 16 - Unknown RED DYE 07/04/2002 16 - Unknown Date Reviewed: 02/03/2025 Reviewed by: Jackie Linares OCCA - Fully Assessed Prescriptions as of 04/11/2025 - methocarbamol (ROBAXIN) 750 mg tablet Take [...] INSULIN PUMP) misc Basal rates: 24:00 --1.6units/hr; 0300:-2.3units/hr;06:00- 1.8;11:00-1.8;12:00-2.0; 16:00-2.2;19:00-2.7;21:0 0-2.4 ;22:00-1.6. Bolus: 2 unit/6 Gms CHO each [...] day - CENTRUM ECHINACEA CAPSULE 100MG PO Building Analyst/Supervisor: Therapy (PT/OT/Speech/Resp) ID: [id number] 04/11/2025 5:54 PM Author: CHERY LAND Signed by CHERY LAND PT on 04/11/2025 at 5:54 PM Document text: Program_ID:[id number] Access Code: [email or web address] URL: [email or web address]/ Date: 04-11-2025 Prepared By: Chery Land Program Notes self [...] x weekly - sets - 3 reps - Standing Hip Abduction with Resistance at Ankles and Counter Support - 1 x daily - 7 x weekly - 1-2 sets - 10-15 reps - Hooklying Sequential Leg March and Lower - 1 x daily - 7 x weekly - 1-2 sets - 10-15 reps [facility] THERAPY NTon 04-11-2025 THERAPY NT HNO ID: [id number] Author: CHERY LAND PT Service: Physical Therapy Author Type: Physical Therapist Type: Therapy (PT/OT/Speech/Resp) Filed: 04/11/2025 17:54 Note Text: Program_ID:[id number] Access Code: [email or web address] URL: [email or web address]. deltaDNA/ Date: 04-11-2025 Prepared By: Chery Land Program Notes self [...] x weekly - sets - 3 reps - Standing Hip Abduction with Resistance at Ankles and Counter Support - 1 x daily - 7 x weekly - 1-2 sets - 10-15 reps - Hooklying Sequential Leg March and Lower - 1 x daily - 7 x weekly - 1-2 sets - 10-15 reps [facility] CNPEnedina 04-01-2025 CNPN Telephone (NEADFV) -------- JACQUIE LANTIGUA ([id number]) 1965 M Date Time Provider Department 04/01/25 MALIHA BERG NEADFV During your visit today, we recorded the following information about you: Juliet Williamson 04/01/2025 1:41 PM Signed [place] report XR hip LT 2V w/pelvis scanned to [facility] Amari Blue RN 04/04/2025 9:15 AM Signed OV 05/05 Allergies As of Date: 04/01/2025 Noted Allergy Reaction HUMIRA (ADALIMUMAB) 08/20/2017 8 - GI Upset METHOTREXATE 05/21/2019 16 - Unknown RED DYE 07/04/2002 16 - Unknown Date Reviewed: 02/03/2025 Reviewed by: Jackie Linares OCCA - Fully Assessed Reason for Visit: Results [95] Prescriptions as of 04/04/2025 - methocarbamol (ROBAXIN) 750 mg tablet Take [...] INSULIN PUMP) misc Basal rates: 24:00 --1.6units/hr; 0300:-2.3units/hr;06:00- 1.8;11:00-1.8;12:00-2.0; 16:00-2.2;19:00-2.7;21:0 0-2.4 ;22:00-1.6. Bolus: 2 unit/6 Gms CHO each [...] 100MG PO Problem List As Of Date 04/01/2025 Noted Resolved Type 1 diabetes mellitus with [...] pain without sciatica *03/01/2025 Encounter Status:Closed by AMARI BLUE on 04/04/25 [facility] 03-23-2025 [facility] Telephone (NIQ) -------- JACQUIE LANTIGUA ([id number]) 1965 M Date Time Provider Department 03/23/25 MALIHA BERG [facility] During your visit today, we recorded the [...] walk. Please call patient to advise at [phone]. Rosalee Duncan PA-C 03/23/2025 4:15 PM Signed Call placed [...] to have them send imaging over to [facility] once completed and follow-up with Dr. Berg's office. Will fax order to [facility]. Patient was appreciative of call. Edith Herring 03/29/2025 10:54 AM Signed Patient at [phone] called stating he did his hip xray at [facility] and that we should be able to see it and is asking for results. (I can't see it, maybe you can.) Amari Blue, CAMILA 03/29/2025 3:34 PM Signed Called [facility] images being pushed through Amari Blue RN 03/30/2025 8:23 AM Signed Images viewable will forward for review Kris Kovacs APRN.CHRISTINA 03/30/2025 10:05 AM Signed Called patient to discuss hip x-rays, no answer, voicemail left. Riya Hu 04/01/2025 9:49 AM Signed Patient called wanting to talk with PA. He has some questions, regarding permanent disability and if provider does Burn the nerve inns procedure. Patient # [phone] Tess Villasenor APRN.CHRISTINA 04/01/2025 11:01 AM Signed Spoke with Mr. Alvarez over the phone. He has complaints of continued low back pain with radiation to his left hip and down his left leg into his ankle similar to prior to his surgery back in January. He endorses numbness in his left ankle as well. Recent hip x-ray without significant degeneration or fracture noted. He states he continues taking gabapentin, muscle relaxers, undergoing physical therapy and doing home exercises without much relief. He is inquiring if nerve ablation would be an option for his symptoms. He denies right-sided symptoms. He denies bowel or bladder incontinence. Will attempt to move up his follow-up appointment and discuss if further imaging is warranted with Dr. Berg. He is appreciative of the call. Tess J Schabel, DAY HABILITATION SUPERVISOR.ROD WELDER Allergies As of Date: 03/23/2025 Noted Allergy Reaction HUMIRA (ADALIMUMAB) 08/20/2017 8 - GI Upset METHOTREXATE 05/21/2019 16 - Unknown RED DYE 07/04/2002 16 - Unknown Date Reviewed: 02/03/2025 Reviewed by: Jackie Linares OCCA - Fully Assessed Reason for Visit: Severe Pain [Other] Primary Visit Diagnosis:Pain in left hip [M25.552] Order(s):XR HIP GENERAL 3V PELV/AP/LAT LEFT [[id number]] Order #: [id number] FUTURE Prescriptions as of 04/01/2025 - methocarbamol (ROBAXIN) 750 mg tablet Take [...] INSULIN PUMP) misc Basal rates: 24:00 --1.6units/hr; 0300:-2.3units/hr;06:00- 1.8;11:00-1.8;12:00-2.0; 16:00-2.2;19:00-2.7;21:0 0-2.4 ;22:0 (more content not included)... [facility] CNTHERAPYon 03-16-2025 CNTHERAPY OT/PT/Speech Visit (MICHAELPTRM) -------- JACQUIE LANTIGUA ([id number]) 1965 M Date Time Provider Department 03/16/25 5:00 PM DAMIEN REEVES Date Time Provider Department [place] 03/16/2025 5:00 PM [id number] REEVES Reason for Visit: Physical Therapy [503] [...] INSULIN PUMP) misc Basal rates: 24:00 --1.6units/hr; 0300:-2.3units/hr;06:00- 1.8;11:00-1.8;12:00-2.0; 16:00-2.2;19:00-2.7;21:0 0-2.4 ;22:00-1.6. Bolus: 2 unit/6 Gms CHO each [...] day - CENTRUM ECHINACEA CAPSULE 100MG PO [facility] CNTHERAPYon 03-09-2025 CNTHERAPY OT/PT/Speech Visit (LOPTRM) -------- JACQUIE LANTIGUA ([id number]) 1965 M Date Time Provider Department 03/09/25 5:00 PM DAMIEN REEVES Date Time Provider Department [place] 03/09/2025 5:00 PM [id number] REEVES Reason for Visit: Physical Therapy [503] [...] INSULIN PUMP) misc Basal rates: 24:00 --1.6units/hr; 0300:-2.3units/hr;06:00- 1.8;11:00-1.8;12:00-2.0; 16:00-2.2;19:00-2.7;21:0 0-2.4 ;22:00-1.6. Bolus: 2 unit/6 Gms CHO each [...] day - CENTRUM ECHINACEA CAPSULE 100MG PO Building Analyst/Supervisor: Therapy (PT/OT/Speech/Resp) ID: [id number] 03/09/2025 5:33 PM Author: DAMIEN REEVES Signed by DAMIEN REEVES ORNAMENTAL IRONWORKING SUPERVISOR on 03/09/2025 at 5:33 PM Document text: Program_ID:[id number] Access Code: [email or web address] URL: [email or web address] deltaDNA/ Date: 03-09-2025 Prepared By: Chery Land Program [...] x weekly - sets - 3 reps [facility] THERAPY NTon 03-09-2025 THERAPY NT HNO ID: [id number] Author: DAMIEN REEVES PTA Service: ? Author Type: Mastercam Programmer Type: Therapy (PT/OT/Speech/Resp) Filed: 03/09/2025 17:33 Note Text: Program_ID:[id number] Access Code: [email or web address] URL: [email or web address]. [email or web address]/ Date: 03-09-2025 Prepared By: Chery Land Program [...] x weekly - sets - [facility] (NEADFV) -------- JACQUIE LANTIGUA ([id number]) 1965 M Date Time Provider Department 03/07/25 MALIHA BERG During your visit today, we recorded the following information about you: Juliet Williamson 03/07/2025 10:51 AM Signed Pt phoned requesting anti inflammatory also asking for physical therapy location change. Pt will contact w name of location and fax number. Pt also asking if able to order massotherapy. Kris Kovacs APRN.ROD WELDER 03/07/2025 10:58 AM Signed Called and spoke with Ori, he states he has increased pain in his low back radiating down his left leg to left foot/toes recently. Has been going to PT for past several weeks at [facility], has not helped yet but he is going to continue [...] further questions/concerns. He is appreciative of call. Allergies As of Date: 03/07/2025 Noted Allergy Reaction HUMIRA (ADALIMUMAB) 08/20/2017 8 - GI Upset METHOTREXATE 05/21/2019 16 - Unknown RED DYE 07/04/2002 16 - Unknown Date Reviewed: 02/03/2025 Reviewed by: Jackie Linares OCCA - Fully Assessed Reason for Visit: Medication Request [138] Primary Visit Diagnosis:Radiculopathy, lumbar region [M54.16] Order(s):[] methylPREDNISolone (MEDROL, RIVAS,) 4 mg Dose-PackAs instructed per packageDisp: 21 tabletRfl: 0 Prescriptions as of 04/06/2025 - methocarbamol (ROBAXIN) 750 mg tablet Take [...] INSULIN PUMP) misc Basal rates: 24:00 --1.6units/hr; 0300:-2.3units/hr;06:00- 1.8;11:00-1.8;12:00-2.0; 16:00-2.2;19:00-2.7;21:0 0-2.4 ;22:00-1.6. Bolus: 2 unit/6 Gms CHO each meal; correction : 1 unit every 25 mg > 125 mg/dl. Sangeethan wrk. hrd: tmp bas at 80% - [...] 100MG PO Problem List As Of Date 03/07/2025 Noted Resolved Type 1 diabetes mellitus with [...] midline low back pain without sciatica *03/01/2025 Prescriptions ordered this encounter Disp Refills Start End METHYLPREDNISOLONE 4 MG TABLETS IN A* 21 t* 0 03/07/2025 03/13/2025 Sig: As instructed per package Encounter Status:Closed by JULIET WILLIAMSON on 04/06/25 [facility] CNTHERAPYon 03-01-2025 CNTHERAPY OT/PT/Speech Visit (LOPTRM) -------- JACQUIE LANTIGUA ([id number]) 1965 M Date Time Provider Department 03/01/25 1:00 PM CHERY LAND Date Time Provider Department [place] 03/01/2025 1:00 PM [id number] LAND Reason for Visit: PT Eval [747] [...] INSULIN PUMP) misc Basal rates: 24:00 --1.6units/hr; 0300:-2.3units/hr;06:00- 1.8;11:00-1.8;12:00-2.0; 16:00-2.2;19:00-2.7;21:0 0-2.4 ;22:00-1.6. Bolus: 2 unit/6 Gms CHO each [...] day - CENTRUM ECHINACEA CAPSULE 100MG PO Building Analyst/Supervisor: Addendum Therapy (PT/OT/Speech/Resp) ID: [id number] 03/01/2025 1:32 PM Author: CHERY LAND Signed by CHERY LAND PT on 03/01/2025 at 1:32 PM * * * This document replaces document [id number] * * * Document text: Program_ID:[id number] Access Code: [email or web address] URL: [email or web address] Date: 03-01-2025 Prepared By: Chery Land Program [...] weekly - 1 sets - 2 reps [facility] THERAPY NTon 03-01-2025 THERAPY NT HNO ID: [id number] Author: CHERY LAND, PT Service: Physical Therapy Author Type: Physical Therapist Type: Therapy (PT/OT/Speech/Resp) Filed: 03/01/2025 13:32 Note Text: Program_ID:[id number] Access Code: [email or web address] URL: [email or web address] Date: 03-01-2025 Prepared By: Chery Land Program [...] weekly - 1 sets - 2 reps [facility] CNOVon 02-03-2025 CNOV Office Visit (SPSNAV ) -------- JACQUIE LANTIGUA ([id number]) 1965 M Date Time Provider Department 02/03/25 [...] Pain Location: Buttocks-Left Back-Lower leg- left Description: Aching;Pulsating;Radiati ng;Sharp;Shooting;Stabbi ng/Not Incision;Stiffness;Tight ness;Tingling Shooting;Throbbing;Sharp Duration Units: Months -- Frequency: Intermittent Intermittent Intervention/Comfort measure: Medication;Cold;Exercise Medication;Reposition;Re laxation;Cold Comments: Started in february ,,sciatic pain left [...] Imaging and outside records independently reviewed ASSESSMENT/PLAN Jacquierosalba Lantigua is a pleasant 59-year-old gentleman is here in spine surgery clinic for 3 week postoperative follow-up visit. He underwent left L5-S1 discectomy w (more content not included)... [facility] JACQUIE LANTIGUA ([id number]) 1965 M Date Time Provider Department 01/17/25 MORENA[facility]USH[facility] CARRILLOTIBURCIOLina NSFRVW During your visit today, we recorded the following information about you: Riya Hu 01/17/2025 11:22 AM Signed Medication for pain is not working as is should patient is still having lots of discomfort. Patient wanted to know when the holder patch needs to come off. 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 Bolus: 2 unit/6 Gms CHO each [...] [I10] 12/30/2024 Acquired hypothyroidism [E03.9] 12/30/2024 Moderate (more content not included)... [facility] 01-14-2025 [facility] Telephone (NEADFV) -------- JACQUIE LANTIGUA ([id number]) 1965 M Date Time Provider Department 01/14/25 MALIHA BERG During your visit today, we recorded the following information about you: Juliet Williamson 01/14/2025 9:04 AM Signed Pt phoned with updated fax number for Pt work excuse fax # [phone] attn Amari García RN 01/14/2025 9:15 AM Signed Letter faxed Allergies As of Date: 01/14/2025 Noted Allergy Reaction HUMIRA (ADALIMUMAB) 08/20/2017 8 - GI Upset METHOTREXATE 05/21/2019 16 - Unknown RED DYE 07/04/2002 16 - Unknown Date Reviewed: 01/12/2025 Reviewed by: Saima Martinez RN - Fully Assessed Reason for Visit: Updated [...] INSULIN PUMP) misc Basal rates: 24:00 --1.6units/hr; 0300:-2.3units/hr;06:00- 1.8;11:00-1.8;12:00-2.0; 16:00-2.2;19:00-2.7;21:0 0-2.4 ;22:00-1.6. Bolus: 2 unit/6 Gms CHO each [...] Encounter Status:Closed by AMARI BLUE on 01/14/25 [facility] CNCOon 01-13-2025 CNCO Letter Text [facility] CNPNon 01-13-2025 CNPN Telephone (NIQ) -------- JACQUIE LANTIGUA ([id number]) 1965 M Date Time Provider Department 01/13/25 [...] patient at: at home and on cell [phone] (home) [phone] (cell) Was an appointment scheduled: No Closing statement: Results or non-symptom based questions: Thank you for calling [facility], your call will be returned within the next business day. Monse Alvarez 01/13/2025 10:11 AM Signed Patient called back with fax number of [phone]. Amari Blue, RN 01/14/2025 8:44 AM Signed Letter written [...] INSULIN PUMP) misc Basal rates: 24:00 --1.6units/hr; 0300:-2.3units/hr;06:00- 1.8;11:00-1.8;12:00-2.0; 16:00-2.2;19:00-2.7;21:0 0-2.4 ;22:00-1.6. Bolus: 2 unit/6 Gms CHO each [...] Encounter Status:Closed by AMARI BLUE on 01/14/25 [facility] ANES POSTPROC EVALon 025 ANES POSTPROC EVAL HNO ID: [id number] Author: RUDDY DAVALOS MD Service: Anesthesiology Author Type: Anesthesiologist Type: Anesthesia Postprocedure Evaluation Filed: 01/12/2025 12:41 Note Text: POST ANESTHESIA EVALUATION NOTE : 1965 Procedure Summary Date: 01/12/25 Room / Location: OR / OR Anesthesia Start: 727 Anesthesia Stop: 1002 Procedure: LAMINOTOMY W/ DECOMPRESSION OF NERVE ROOT(S) [...] January 12, 2025 TIME: 12:41 PM CSN: [id number] [facility] ANES PRE-OPon 01-12-2025 ANES PRE-OP HNO ID: [id number] Author: RUDDY DAVALOS MD Service: Anesthesiology Author Type: Anesthesiologist Type: Anesthesia Preprocedure Evaluation Filed: 01/12/2025 06:52 Note Text: ANESTHESIOLOGY DAY OF SURGERY NOTE : 1965 Procedure Information Date/Time: 01/12/25729 Procedure: LAMINOTOMY W/ DECOMPRESSION OF NERVE ROOT(S) PARTIAL FACETECTOMY FORAMINOTOMY AND/OR EXCISION OF HERNIATED INTERVERTEBRAL DISC 1 INTERSPACE LUMBAR (Left: Spine Lumbar) - Left L5-S1 disc with foraminotomy Location: [facility] Surgeons: Maliha Berg MD Estimated body [...] and consent discussed: yes. Patient / Responsible Democrat agrees to proceed: yes Patient / Surrogate [...] none. Vitals Value Taken Time BP 147/82 01/12/25624 Pulse 68 01/12/25624 Resp 18 01/12/25624 Temp 36.7 ?C (98.1 ?F) 01/12/25624 SpO2 96 % 01/12/25624 Facility-Administered Medications as of 01/12/2025 Medication Dose [...] INSULIN PUMP) misc Basal rates: 24:00 --1.6units/hr; 0300:-2.3units/hr;06:00- 1.8;11:00-1.8;12:00-2.0; 16:00-2.2;19:00-2.7;21:0 0-2.4 ;22:00-1.6. Bolus: 2 unit/6 Gms CHO each [...] once daily as needed. aspirin, enteric coated (ECOTR (more content not included)... [facility] BRIEF OP NOTon 01-12-2025 BRIEF OP NOT HNO ID: [id number] Author: MALIHA BERG MD Service: Neurosurgery Author Type: Physician Type: Brief Op Note Filed: 01/12/2025 09:34 Note Text: BRIEF OPERATIVE / PROCEDURE NOTE LOG ID: [id number] SURGERY/PROCEDURE DATE: 01/12/2025 INCISION/PROCEDURE START TIME: 8:01 AM INCISION CLOSE/PROCEDURE END TIME: 09.40 AM SURGEON(S)/PROCEDURALIST (S) AND GOLD LETTERER(S): Surgeons and Role: * Maliha Berg MD [...] DATE: January 12, 2025 TIME: 9:32 AM [facility] HISTORY PHYSICALon HISTORY PHYSICAL HNO ID: [id number] Author: MALIHA BERG MD Service: Neurosurgery Author [...] January 12, 2025 TIME: 7:17 AM PAGER: [phone] [facility] OPERATIVE NOon 01-12-2025 OPERATIVE NO HNO ID: [id number] Author: MALIHA BERG MD Service: Neurosurgery Author Type: Physician Type: Operative Report Filed: 01/12/2025 09:38 Note Text: OPERATIVE/PROCEDURE REPORT LOG ID: [id number] SURGERY/PROCEDURE DATE: 01/12/2025 INCISION/PROCEDURE START TIME: 8:01 AM INCISION CLOSE/PROCEDURE END TIME: 09.40 AM SURGEON(S)/PROCEDURALIST (S) AND GOLD LETTERER(S): Surgeons and Role: * Maliha Berg MD [...] room. While he was on the transport gurney, he underwent smooth and adequate general anesthesia. [...] level. Level was marked with permanent marker. director call radiologist reviewed the image remotely and confirmed [...] DATE: January 12, 2025 TIME: 9:34 AM [facility] XR LUMBAR SPECIFY 1Von 01-12 XR LUMBAR SPECIFY 1V * * *Final Report* * * DATE OF EXAM: Jan 12 2025 7:59AM [facility] - XR LUMBAR SPECIFY 1V / [...] phone and Skype during the surgical procedure. Director Of Online Merchandising: PSCB Transcribe Date/Time: Jan 12 2025 8:27A Dictated by : KENNEDY SCHMIDT MD This examination was interpreted and the report reviewed and electronically signed by: KENNEDY SCHMIDT MD on Jan 12 2025 8:29AM EST [id number] [facility] XR VERIFY LEVEL C-BQPDC-ZEle 01-12-2025 XR VERIFY LEVEL L-SPINE-NB * * *Final Report* * * DATE [...] phone and Skype during the surgical procedure. Director Of Online Merchandising: CAM Transcribe Date/Time: Jan 12 2025 8:27A Dictated by : KENNEDY SCHMIDT MD This examination was interpreted and the report reviewed and electronically signed by: KENNEDY SCHMIDT MD on Jan 12 2025 8:29AM EST [id number] [facility] ALBUMIN/CREATININE RATIO, UR INEon 12-30-2024 Albumin DL <= 20 mg/L (U) [Mass/Vol] mg/dL Normal 0.0-20.0 [facility] Comment on above: Order Comment: Speci men Type: URINE SPECIMENOrdering Facility: [facility] Address: [address] [place] [address] Performed By: #### U ACR ####[facility] LABCLIA [id number] [address] STATES OF [facility] Albumin/Creatinine (U) [Mass ratio] [facility] Comment on above: Order Comment: Speci men Type: URINE SPECIMENOrdering Facility: [facility] Address: [address] [place] [address] Result Comment: Not calculated Adult Male and Female Nephrotic Criteria: <30 mg/g is considered normal to mildly increased 30-300 mg/g is considered moderately increased >300 mg/g is considered severely increased KDIGO. (2013). KDIGO 2012 Clinical Practice Guideline for the Evaluation and Management of Chronic Kidney Disease. Official Journal of the International Society of Nephrology, 3(1), 1-150. Performed By: #### U ACR ####[facility] LABCLIA [id number] [place] [address] [place] [facility] Creatinine (U) [Mass/Vol] 38.0 mg/dL Normal 20.0-300.0 [facility] Comment on above: Order Comment: Speci men Type: URINE SPECIMENOrdering Facility: [facility] Address: [address] [place] [address] Performed By: #### U ACR ####[facility] LABCLIA [id number] [place] [address] [place] CBC panel Auto (Bld)on 12-30 Erythrocyte distribution width (RBC) [Ratio] 12.6 % Normal 11.5-15.0 [facility] Comment on above: Order Comment: Speci men Type: BLOOD SPECIMENOrdering Facility: [facility] Address: [address] [place] [address] Performed By: #### 5 8410-2 ####[facility] LABIA [id number] [address] [place] Hematocrit (Bld) [Volume fraction] 35.2 % Low 39.0-51.0 [facility] Comment on above: Order Comment: Speci men Type: BLOOD SPECIMENOrdering Facility: [facility] Address: [address] [place] [address] Performed By: #### 5 8410-2 ####[facility] LABCLIA [id number] [place] [id number] [place] Hemoglobin (Bld) [Mass/Vol] 11.9 g/dL Low 13.0-17.0 [facility] Comment on above: Order Comment: Speci men Type: BLOOD SPECIMENOrdering Facility: [facility] Address: [address] [place] [address] Performed By: #### 5 8410-2 ####[facility] LABCLIA [id number] [place] [address] [place] MCH (RBC) [Entitic mass] 30.5 pg Normal 26.0-34.0 [facility] Comment on above: Order Comment: Speci men Type: BLOOD SPECIMENOrdering Facility: [facility] Address: [address] [place] [address] Performed By: #### 5 8410-2 ####[facility] LABIA [id number] [place] [address] [place] MCHC (RBC) [Mass/Vol] 33.8 g/dL Normal 30.5-36.0 [facility] Comment on above: Order Comment: Speci men Type: BLOOD SPECIMENOrdering Facility: [facility] Address: [address] [place] [address] Performed By: #### 5 8410-2 ####[facility] LABIA [id number] [address] [place] MCV (RBC) [Entitic vol] 90.3 fL Normal 80.0-100.0 [facility] Comment on above: Order Comment: Speci men Type: BLOOD SPECIMENOrdering Facility: [facility] Address: [address] [place] [address] Performed By: #### 5 8410-2 ####[facility] LABIA [id number] [place] [address] [place] Nucleated RBC (Bld) [#/Vol] 10*3/uL Normal <0.01 [facility] Comment on above: Order Comment: Speci men Type: BLOOD SPECIMENOrdering Facility: [facility] Address: [address] [place] [address] Performed By: #### 5 8410-2 ####[facility] LABCLIA [id number] [place] [address] [place] Platelet mean volume (Bld) [Entitic vol] 10.2 fL Normal 9.0-12.7 [facility] Comment on above: Order Comment: Speci men Type: BLOOD SPECIMENOrdering Facility: [facility] Address: [address] [place] [address] Performed By: #### 5 8410-2 ####[facility] LABCLIA [id number] [address] [place] [address] [place] Platelets (Bld) [#/Vol] 247 10*3/uL Normal 150-400 [facility] Comment on above: Order Comment: Speci men Type: BLOOD SPECIMENOrdering Facility: [facility] Address: [address] [place] [address] Performed By: #### 5 8410-2 ####[facility] LABCLIA [id number] [address] [place] [address] [place] RBC (Bld) [#/Vol] 3.90 10*6/uL Low 4.20-6.00 [facility] Comment on above: Order Comment: Speci men Type: BLOOD SPECIMENOrdering Facility: [facility] Address: [address] [place] [address] Performed By: #### 5 8410-2 ####[facility] LABCLIA [id number] [address] [address] [place] WBC (Bld) [#/Vol] 7.07 10*3/uL Normal 3.70-11.00 [facility] Comment on above: Order Comment: Speci men Type: BLOOD SPECIMENOrdering Facility: [facility] Address: [address] [place] [address] Performed By: #### 5 8410-2 ####[facility] LABCLIA [id number] [address] [address] [place] Comprehensive metabolic 2000 panelon 12-30-2024 Albumin [Mass/Vol] 4.5 g/dL Normal 3.9-4.9 [facility] Comment on above: Order Comment: Speci men Type: BLOOD SPECIMENOrdering Facility: [facility] Address: [address] [place] [id number] Performed By: #### 2 4323-8, 59199-2 ####[facility] LABCLIA [id number] [place] [address] [place]#### 3016-3 ####[facility] LABCLIA [id number] [address] [address] [place] ALP [Catalytic activity/Vol] 50 U/L Normal 38-113 [facility] Comment on above: Order Comment: Speci men Type: BLOOD SPECIMENOrdering Facility: [facility] Address: [address] [place] [address] Performed By: #### 2 432-8, 91862-0 ####[facility] LABCLIA [id number] [place] [address] [place]#### 3016-3 ####[facility] LABCLIA [id number] [place] [id number] [place] ALT [Catalytic activity/Vol] 61 U/L High 10-54 [facility] Comment on above: Order Comment: Speci men Type: BLOOD SPECIMENOrdering Facility: [facility] Address: [address] [place] [id number] Performed By: #### 2 4323-8, 73831-5 ####[facility] LABCLIA [id number] [place] [address] [place]#### 3016-3 ####[facility] LABCLIA [id number] [address] [address] [place] Anion gap [Moles/Vol] 5 mmol/L Low 8-15 [facility] Comment on above: Order Comment: Speci men Type: BLOOD SPECIMENOrdering Facility: [facility] Address: [address] [place] [id number] Performed By: #### 2 4323-8, 92484-5 ####[facility] LABCLIA [id number] [place] [address] [place]#### 3016-3 ####[facility] LABCLIA [id number] [address] [address] [place] AST [Catalytic activity/Vol] 40 U/L Normal 14-40 [facility] Comment on above: Order Comment: Speci men Type: BLOOD SPECIMENOrdering Facility: [facility] Address: [address] [place] [address] Performed By: #### 2 4323-8, 63146-5 ####[facility] LABCLIA [id number] [place] [address] [place]#### 3016-3 ####[facility] LABCLIA [id number] [place] [address] [place] Bilirubin [Mass/Vol] 0.3 mg/dL Normal 0.2-1.3 [facility] Comment on above: Order Comment: Speci men Type: BLOOD SPECIMENOrdering Facility: [facility] Address: [address] [place] [address] Performed By: #### 2 4323-8, 17730-6 ####[facility] LABCLIA [id number] [place] [address] [place]#### 3016-3 ####[facility] LABCLIA [id number] [address] [address] [place] Calcium [Mass/Vol] 9.9 mg/dL Normal 8.5-10.2 [facility] Comment on above: Order Comment: Speci men Type: BLOOD SPECIMENOrdering Facility: [facility] Address: [address] [place], [place] [address] Performed By: #### 2 4323-8, 10471-2 ####[facility] LABCLIA [id number] [place] [address] [place]#### 3016-3 ####[facility] LABCLIA [id number] [address] [address] [place] Chloride [Moles/Vol] 103 mmol/L Normal 98-107 [facility] Comment on above: Order Comment: Speci men Type: BLOOD SPECIMENOrdering Facility: [facility] Address: [address] [place] [id number] Performed By: #### 2 4323-8, 30415-3 ####[facility] LABCLIA [id number] [place] [address] [place]#### 3016-3 ####[facility] LABCLIA [id number] [place] [address] [place] CO2 [Moles/Vol] 30 mmol/L Normal 22-30 [facility] Comment on above: Order Comment: Speci men Type: BLOOD SPECIMENOrdering Facility: [facility] Address: [address] [place] [place] [id number] Performed By: #### 2 4323-8, 06370-3 ####[facility] LABCLIA [id number] [place] [address] [place]#### 3016-3 ####[facility] LABCLIA [id number] [place] [address] [place] Creatinine [Mass/Vol] 0.96 mg/dL Normal 0.73-1.22 [facility] Comment on above: Order Comment: Speci men Type: BLOOD SPECIMENOrdering Facility: [facility] Address: [address] [place] [id number] Performed By: #### 2 4323-8, 00509-0 ####[facility] LABCLIA [id number] [place] [address] [place]#### 3016-3 ####[facility] LABCLIA [id number] [address] Creatinine and Glomerular filtration rate.predicted panel (S/P/Bld) 90 mL/min/1.73m??? Normal >=60 [facility] Comment on above: Order Comment: Greer harrell Type: BLOOD SPECIMENOrdering Facility: [facility] Address: [address] [place] [address] Result Comment: Lisette mated Glomerular Filtration Rate (eGFR) is calculated using the 2020 CKD-EPI creatinine equation. This equation utilizes serum creatinine, sex, and age as parameters. The creatinine assay has traceable calibration to isotope dilution-mass spectrometry. Refer to KDIGO guidelines for clinical interpretation. In patients with unstable renal function, e.g. those with acute kidney injury, the eGFR may not accurately reflect actual GFR. Performed By: #### 2 4323-8, 43601-1 ####[facility] LABCLIA [id number] [address] [place]#### 3016-3 ####[facility] LABCLIA [id number] [place] [address] [place] Glucose [Mass/Vol] 158 mg/dL High 74-99 [facility] Comment on above: Order Comment: Greer harrell Type: BLOOD SPECIMENOrdering Facility: [facility] Address: [address] [place] [address] Result Comment: The [place] Diabetes Association (ADA) provides guidance for cutoff [...] Standards of Medical Care in Diabetes 2016, [place] [employer]. Diabetes Care. 2016.39(Suppl 1). Performed By: #### 2 4323-8, 15192-2 ####[facility] LABCLIA [id number] [place] [address] [place]#### 3016-3 ####[facility] LABCLIA [id number] [address] [address] [place] Potassium [Moles/Vol] 4.3 mmol/L Normal 3.7-5.1 [facility] Comment on above: Order Comment: Speci men Type: BLOOD SPECIMENOrdering Facility: [facility] Address: [address] [place], [place] [address] Performed By: #### 2 4323-8, 21195-1 ####[facility] LABCLIA [id number] [place] [address] [place]#### 3016-3 ####[facility] LABCLIA [id number] [place] [address] [place] Protein [Mass/Vol] 6.9 g/dL Normal 6.3-8.0 [facility] Comment on above: Order Comment: Speci men Type: BLOOD SPECIMENOrdering Facility: [facility] Address: [address] [place] [address] Performed By: #### 2 4323-8, 42773-7 ####[facility] LABCLIA [id number] [place] [address] [place]#### 3016-3 ####[facility] LABCLIA [id number] [address] [address] [place] Sodium [Moles/Vol] 138 mmol/L Normal 136-144 [facility] Comment on above: Order Comment: Speci men Type: BLOOD SPECIMENOrdering Facility: [facility] Address: [address] [place] [id number] Performed By: #### 2 4323-8, 61955-2 ####[facility] LABCLIA [id number] [place] [address] [place]#### 3016-3 ####[facility] LABCLIA [id number] [address] Urea nitrogen [Mass/Vol] 13 mg/dL Normal 9-24 [facility] Comment on above: Order Comment: Speci men Type: BLOOD SPECIMENOrdering Facility: [facility] Address: [address] [place] [address] Performed By: #### 2 4323-8, 48569-1 ####[facility] LABCLIA [id number] [address]#### 3016-3 ####[facility] LABCLIA [id number] [address] [place] ECG COMPLETEon 12-30-2024 ECG COMPLETE Ventricular Rate : 6 2 BPM Atrial Rate : 62 BPM P-R Interval : 132 ms QRS Duration : 104 ms Q-T Interval : 412 ms QTC Calculation(Bazett) : 418 ms Calculated P [place] : 65 degrees Calculated R [place] : 39 degrees Calculated T [place] : 48 degrees NORMAL SINUS RHYTHM NORMAL ECG Confirmed by NEMO THOMPSON M.D. ([id number]) on 01/02/2025 6:21:58 PM NAME : JACQUIE LANTIGUA PID : [id number] : 1965 Gender : Male Race : ORD : [id number] Procedure Date : Dec 30 2024 08:36:05 Edit Date : Jan 02 2025 18:21:58 Diagnosis: NORMAL SINUS RHYTHM NORMAL ECG Confirmed by NEMO THOMPSON M.D. ([id number]) on 01/02/2025 6:21:58 PM Test Reason : PRE OP Location : 545 : [facility] Overread By : NEMO THOMPSON M.D. Edited By : NEMO THOMPSON M.D. Referred By : MALIHA BERG Acquired by : Fabian NGUYEN [facility] HISTORY PHYSICALon HISTORY PHYSICAL HNO ID: [id number] Author: PRABHA GONZALEZ APRN.ROD WELDER Service: ? Author Type: Nurse Practitioner Type: H&P Filed: 12/30/2024 17:37 Note Text: [facility] HISTORY AND PHYSICAL EXAMINATION SERVICE DATE: 12/30/2024 SERVICE TIME: 8:07 AM PRIMARY CARE PHYSICIAN: Mikael Araya DO, DO Assessment Patient has the following medical conditions which may affect emanuel-operative course: MIXED HYPERLIPIDEMIA Assessment: Managed with med , Follows with PCP Type 1 diabetes mellitus with other specified complication (HCC) Assessment: Managed with insulin pump, CGM Follows with Dr. 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 Mallampati: III. TM distance: >3 FB. Neck ROM: full ROM without neurological symptoms. Mouth opening: adequate. Short neck: no. Thick neck: yes Kamara present: yes (mustache/short goatee) Lip Bite Test: II Microretrognathia/Micron agthia/Recessed Chin: No DENTAL Dental findings: teeth intact [...] Imm Admin: COVID-19 vaccine, age 12+ yr (PFIZER-BIONTECH COMIRNATY) 08/18/2023 Imm Admin: COVID-19 vaccine, age 12+ yr (PFIZER-BIONTECH COMIRNATY) 08/10/2022 Imm Admin: COVID-19 vaccine, age 12+ yr, bivalent (PFIZER-BIONTECH) Only the first 3 history entries have been lo (more content not included)... [facility] HbA1c (Bld)on 12-30-2024 Average glucose Estimated from glycated hemoglobin (Bld) [Mass/Vol] 160 mg/dL [facility] Comment on above: Order Comment: Greer harrell Type: BLOOD SPECIMENOrdering Facility: [facility] Address: [address] [place] [address] Result Comment: eAG: (Estimated average glucose) is a calculated value from HgbA1c and is security representative of the average blood glucose level in the last 2-3 month period. Performed By: #### 5 5454-3 ####[facility] LABIA [id number] [place] [address] [place] HbA1c (Bld) [Mass fraction] 7.2 % High 4.3-5.6 [facility] Comment on above: Order Comment: Greer harrell Type: BLOOD SPECIMENOrdering Facility: [facility] Address: [address] [place] [address] Result Comment: Amer [place] Diabetes Association guidelines indicate that patients with HgbA1c in the range 5.7-6.4% are at increased risk for development of diabetes, and intervention by lifestyle modification may be beneficial. HgbA1c greater or equal to 6.5% is considered diagnostic of diabetes. Performed By: #### 5 5454-3 ####[facility] LABCLIA [id number] [place] [id number] [place] Lipid 1996 panelon 5 Cholesterol [Mass/Vol] 202 mg/dL High <200 [facility] Comment on above: Order Comment: Speci men Type: BLOOD SPECIMENOrdering Facility: [facility] Address: [address] [place] [address] Result Comment: <200 mg/dL, Desirable 200-239 mg/dL, Borderline high >239 mg/dL, High Performed By: #### 2 4323-8, 94625-6 ####[facility] LABCLIA [id number] [address] [place]#### 3016-3 ####[facility] LABCLIA [id number] [address] Cholesterol in HDL [Mass/Vol] 61 mg/dL Normal >39 [facility] Comment on above: Order Comment: Speci men Type: BLOOD SPECIMENOrdering Facility: [facility] Address: [address] [place] [address] Result Comment: 40-5 9 mg/dL, Acceptable >59 mg/dL, High: Negative risk factor for coronary heart disease <40 mg/dL, Low: Positive risk factor for coronary heart disease Performed By: #### 2 4323-8, 67859-6 ####[facility] LABCLIA [id number] [place] [address] [place]#### 3016-3 ####[facility] LABCLIA [id number] [address] [place] Cholesterol in LDL [Mass/Vol] 104 mg/dL High <100 [facility] Comment on above: Order Comment: Speci men Type: BLOOD SPECIMENOrdering Facility: [facility] Address: [address] [place] [address] Result Comment: <100 mg/dL, Optimal 100-129 mg/dL, Near optimal/above optimal 130-159 mg/dL, Borderline high 160-189 mg/dL, High >189 mg/dL, Very high Secondary prevention optimal LDL Cholesterol levels are recommended to be < 70 mg/dL Performed By: #### 2 4323-8, 20131-8 ####[facility] LABCLIA [id number] [place] [address] [place]#### 3016-3 ####[facility] LABCLIA [id number] [place] [address] [place] Cholesterol in LDL/Cholesterol in HDL [Mass ratio] 1.70 {ratio} Normal <2.54 [facility] Comment on above: Order Comment: Speci men Type: BLOOD SPECIMENOrdering Facility: [facility] Address: [address] [place] [address] Result Comment: Refe rence: 1. National Cholesterol Education Program ATP III Guideline At-A-Glance Quick Desk Reference: National Heart, Lung, and Blood Ethel. National Institutes of Health. 2001: NIH Publication No. 01-3305. 2. An International Atherosclerosis Society position paper: global recommendations for the management of dyslipidemia: executive summary, Atherosclerosis. 2014: 232(2):410-413. Performed By: #### 2 4323-8, 48827-6 ####[facility] LABCLIA [id number] [place] [address] [place]#### 3016-3 ####[facility] LABIA [id number] [place] [address] [place] Cholesterol in VLDL [Mass/Vol] 37 mg/dL High <30 [facility] Comment on above: Order Comment: Speci men Type: BLOOD SPECIMENOrdering Facility: [facility] Address: [address] [place] [address] Performed By: #### 2 4323-8, 17580-4 ####[facility] LABCLIA [id number] [place] [address] [place]#### 3016-3 ####[facility] LABCLIA [id number] [place] [address] [place] Cholesterol non HDL [Mass/Vol] 141 mg/dL High <130 [facility] Comment on above: Order Comment: Speci men Type: BLOOD SPECIMENOrdering Facility: [facility] Address: [address] [place] [place] [id number] Result Comment: <130 mg/dL, Optimal 130-159 mg/dL, Near optimal/above optimal 160-189 mg/dL, Borderline high 190-219 mg/dL, High >219 mg/dL, Very high Secondary prevention optimal non HDL Cholesterol levels are recommended to be <100 mg/dL Performed By: #### 2 4323-8, 29349-4 ####[facility] LABCLIA [id number] [place] [address] [place]#### 3016-3 ####[facility] LABCLIA [id number] [place] [address] [place] Cholesterol.total/Cho lesterol in HDL [Mass ratio] 3.31 {ratio} Normal <5.10 [facility] Comment on above: Order Comment: Speci men Type: BLOOD SPECIMENOrdering Facility: [facility] Address: [address] [place] [address] Performed By: #### 2 4323-8, 54410-0 ####[facility] LABCLIA [id number] [place] [address] [place]#### 3016-3 ####[facility] LABCLIA [id number] [address] [address] [place] FASTING TIME 1 hrs [facility] Comment on above: Order Comment: Speci men Type: BLOOD SPECIMENOrdering Facility: [facility] Address: [address] [place], [place] [id number] Performed By: #### 2 4323-8, 20445-9 ####[facility] LABCLIA [id number] [place] [address] [place]#### 3016-3 ####[facility] LABCLIA [id number] [address] [address] [place] Triglyceride [Mass/Vol] 187 mg/dL High <150 [facility] Comment on above: Order Comment: Speci men Type: BLOOD SPECIMENOrdering Facility: [facility] Address: [address] [place] [address] Result Comment: <150 mg/dL, Normal 150-199 mg/dL, Borderline high 200-499 mg/dL, High >499 mg/dL, Very high Performed By: #### 2 4323-8, 57516-3 ####[facility] LABCLIA [id number] [place] [address] [place]#### 3016-3 ####[facility] LABCLIA [id number] [place] [address] [place] STAPHYLOCOCCUS AUREUS AND MR SA SCREEN, PCR, NASALon 12-30-2024 S. aureus and MRSA panel KARLA+probe (Nose) Methicillin-SUSCEPTIBLE Staphylococcus aureus Detected Abnormal Not Detected [facility] Comment on above: Order Comment: Speci men Type: SWABOrdering Facility: [facility] Address: [address] [place] [address] Performed By: #### S APCR ####[facility] LABIA [id number] [address] [place] TSH SerPl-aCncon 12-30-2024 TSH Qn 2.010 m[IU]/L Normal 0.270-4.200 [facility] Comment on above: Order Comment: Speci men Type: BLOOD SPECIMENOrdering Facility: [facility] Address: [address] [place] [address] Performed By: #### 2 4323-8, 40564-5 ####[facility] LABCLIA [id number] [place] [address] [place]#### 3016-3 ####[facility] LABCLIA [id number] [place] [address] [place] CNOVon 12-23-2024 CNOV Office Visit (SPSNAV ) -------- JACQUIE LANTIGUA ([id number]) 1965 M Date Time Provider Department 12/23/24 11:40 AM MALIHA BERG SPSNAV During your visit today, we recorded the following information about you: Maliha Berg MD 12/23/2024 11:59 AM Signed SPINE SURGERY ESTABLISHED This is an in-person visit. DATE OF SERVICE: 12/22/2024 DATE OF LAST VISIT: 08/20/2024 SUBJECTIVE: HPI:Jacquie Lantigua is a 59 year old male presenting with friend. Jacquie Lantgiua is a pleasant 58-year-old gentleman is here [...] INSULIN PUMP) misc Basal rates: 24:00 --1.6units/hr; 0300:-2.3units/hr;06:00- 1.8;11:00-1.8;12:00-2.0; 16:00-2.2;19:00-2.7;21:0 0-2.4 ;22:00-1.6. Bolus: 2 unit/6 Gms CHO each [...] tablet Take 1 tablet by mouth once da (more content not included)... [facility] CNPEnedina 12-09-2024 CHRISTINAN Telephone (ENDOAL) -------- JACQUIE LANTIGUA ([id number]) 1965 M Date Time Provider Department 12/09/24 BERNARDINO VILLAGOMEZ ENDOENOC During your visit today, we recorded the following information about you: Dora Arevalo MA 12/09/2024 10:37 AM Signed Lab orders printed, signed, stamped and placed in mail for foster care worker service Allergies As of Date: 12/09/2024 Noted Allergy Reaction HUMIRA (ADALIMUMAB) 08/20/2017 8 - GI Upset METHOTREXATE 05/21/2019 16 - Unknown RED DYE 07/04/2002 16 - Unknown Date Reviewed: 12/07/2024 Reviewed by: Dora Arevalo MA - Fully Assessed Reason for Visit: Lab Orders [9568] Cmt: Mailed to patient Prescriptions as of [...] INSULIN PUMP) misc Basal rates: 24:00 --1.6units/hr; 0300:-2.3units/hr;06:00- 1.8;11:00-1.8;12:00-2.0; 16:00-2.2;19:00-2.7;21:0 0-2.4 ;22:00-1.6. Bolus: 2 unit/6 Gms CHO each [...] Date 12/09/2024 Noted Resolved DIABETES UNCOMPL OLGA-UNCONTRLLED [[id number]] 07/20/2002 MIXED HYPERLIPIDEMIA [E78.2] 06/12/2004 HYPOPOTASSEMIA [E87.6] 06/12/2004 ED. [N52.9] 07/22/2005 Peyronie's. [N48.89] 08/08/2005 ABNORMAL THYROID FUNCT STUDY (neg MCAB) [R94.6] 02/03/2006 11/27/2018 acquired hypothyroidism [E03.8] 03/05/2011 11/27/2018 Diabetes mellitus type 1, uncontrolled, without*02/13/2016 11/27/2018 Adult onset hypothyroidism [E03.8] 02/13/2016 11/27/2018 Background diabetic retinopathy (HCC) [E11.3299]02/13/2016 Encounter Status:Closed by DORA AREVALO on 12/09/24 [facility] CNOVon 12-07-2024 CNOV Office Visit (ENDOAL ) -------- JACQUIE LANTIGUA ([id number]) 1965 M Date Time Provider Department 12/07/24 11:00 AM BERNARDINO VILLAGOMEZ During your visit today, we [...] SURGICAL HISTORY Procedure Laterality Date ADENOIDECTOMY PRIMARY Adenoidectomy LAPS ABD PRTMANDOMENTUM DX W/WO SPEC BR/WA SPX 05/08 Laparoscopy: mass in the omentum TONSILLECTOMY PRIMARY/SECONDARY Tonsillectomy FAMILY HISTORY Problem Relation Age of [...] by mouth three times daily as needed. (more content not included)... [facility] CNPNon 12-07-2024 [facility] Telephone (ENDOAL) -------- JACQUIE LANTIGUA ([id number]) 1965 M Date Time Provider Department 12/07/24 BERNARDINO VILLAGOMEZ ENDOAL During your visit today, we recorded the following information about you: Bernardino Villagomez, 12/07/2024 2:46 PM Signed Please advise pt that his liver studies are abnormal on the blood work that he had done in November (but improved from previous results)- has his primary care provider discussed these results with him? Dora Ryan MA 12/07/2024 2:59 PM Signed Spoke to [...] INSULIN PUMP) misc Basal rates: 24:00 --1.6units/hr; 0300:-2.3units/hr;06:00- 1.8;11:00-1.8;12:00-2.0; 16:00-2.2;19:00-2.7;21:0 0-2.4 ;22:00-1.6. Bolus: 2 unit/6 Gms CHO each [...] Date 12/07/2024 Noted Resolved DIABETES UNCOMPL OLGA-UNCONTRLLED [[id number]] 07/20/2002 MIXED HYPERLIPIDEMIA [E78.2] 06/12/2004 HYPOPOTASSEMIA [E87.6] 06/12/2004 ED. [N52.9] 07/22/2005 Peyronie's. [N48.89] 08/08/2005 ABNORMAL THYROID FUNCT STUDY (neg MCAB) [R94.6] 02/03/2006 11/27/2018 acquired hypothyroidism [E03.8] 03/05/2011 11/27/2018 Diabetes mellitus type 1, uncontrolled, without*02/13/2016 11/27/2018 Adult onset hypothyroidism [E03.8] 02/13/2016 11/27/2018 Background diabetic retinopathy (HCC) [E11.3299]02/13/2016 Encounter Status:[facility] JACQUIE LANTIGUA ([id number]) 1965 M Date Time Provider Department 12/07/24 BERNARDINO VILLAGOMEZ ENDOENOC During your visit today, we recorded the following information about you: Dora Arevalo MA 12/07/2024 2:54 PM Signed Patient expressed interest in new pump while at office visit but was not sure when his current pump is out of warranty. I spoke to [employer] rep and patient is still under warranty [...] INSULIN PUMP) misc Basal rates: 24:00 --1.6units/hr; 0300:-2.3units/hr;06:00- 1.8;11:00-1.8;12:00-2.0; 16:00-2.2;19:00-2.7;21:0 0-2.4 ;22:00-1.6. Bolus: 2 unit/6 Gms CHO each [...] Date 12/07/2024 Noted Resolved DIABETES UNCOMPL OLGA-UNCONTRLLED [[id number]] 07/20/2002 MIXED HYPERLIPIDEMIA [E78.2] 06/12/2004 HYPOPOTASSEMIA [E87.6] 06/12/2004 ED. [N52.9] 07/22/2005 Peyronie's. [N48.89] 08/08/2005 ABNORMAL THYROID FUNCT STUDY (neg MCAB) [R94.6] 02/03/2006 11/27/2018 acquired hypothyroidism [E03.8] 03/05/2011 11/27/2018 Diabetes mellitus type 1, uncontrolled, without*02/13/2016 11/27/2018 Adult onset hypothyroidism [E03.8] 02/13/2016 11/27/2018 Background diabetic retinopathy (HCC) [E11.3299]02/13/2016 Encounter Status:Closed by DORA AREVALO on 12/07/24 [facility] HEMOGLOBIN A1C (POC)on 12-07 HbA1c (Bld) [Mass fraction] 7.1 % Abnormal 4.3 - 5.6 % [facility] Comment on above: Location:[facility], [address] [place] [address], [facility] Point of care (POC) Hemoglobin A1c (HGBA1C) testing is intended to assess glucose control and provide a management tool for patients known to have diabetes and their healthcare providers. Target HGBA1C levels may depend on specific clinical circumstances. POC HGBA1C is not intended for use as a diagnostic or screening test; laboratory-based testing should be used for diagnostic purposes. The following information is supplemental and may not be applicable to specific diabetes management situations: The POC device art objects repairer provides a normal range of 4.2% to 6.5% for the HGBA1C POC test. However, the [place] Diabetes Association guidelines indicate that patients with HGBA1C in the range of 5.7% to 6.4% are at increased risk for development of diabetes and that intervention by lifestyle modification may be beneficial. A HGBA1C level greater than or equal to 6.5% is considered diagnostic of diabetes, pending confirmatory testing. Use of HGBA1C testing to evaluate glucose control may not be appropriate for patients with hemoglobin variants or other conditions (e.g. anemia) that alter red blood cell lifespan. Interpretation and review of laboratory results Abnormal [facility] MICROALB CREAT RATIO RAN GETon 11-24-2024 CREATININE URINE RANDOM 104.4 mg/dL 20.00 - 300.00 mg/dL [facility] MICROALBUMIN URINE RANDOM <1.3 NINF - 30.0 mg/dL [facility] CLINISYNC [facility] CNPNon 10-05-2024 CNPN Telephone (SPNMAV) -------- JACQUIE LANTIGUA ([id number]) 1965 M Date Time Provider Department 10/05/24 [facility]RE[facility] During your visit today, we recorded the following information about you: Afsaneh Marshall MA 10/05/2024 12:46 PM Signed DATE OF SERVICE: 09/28/2024 PATIENT'S PHONE NUMBERS: [phone] (home) OR @[facility]@ PROVIDER: Dr. Ureña PROCEDURE: Elective Pain Management [...] Reason for Visit: Follow Up Phone Call [[id number]] Prescriptions as of 10/05/2024 - HUMALOG U-100 [...] INSULIN PUMP) misc Basal rates: 24:00 --1.6units/hr; 0300:-2.3units/hr;06:00- 1.8;11:00-1.8;12:00-2.0; 16:00-2.2;19:00-2.7;21:0 0-2.4 ;22:00-1.6. Bolus: 2 unit/6 Gms CHO each [...] Date 10/05/2024 Noted Resolved DIABETES UNCOMPL OLGA-UNCONTRLLED [[id number]] 07/20/2002 MIXED HYPERLIPIDEMIA [E78.2] 06/12/2004 HYPOPOTASSEMIA [E87.6] 06/12/2004 ED. [N52.9] 07/22/2005 Peyronie's. [N48.89] 08/08/2005 ABNORMAL THYROID FUNCT STUDY (neg MCAB) [R94.6] 02/03/2006 11/27/2018 acquired hypothyroidism [E03.8] 03/05/2011 11/27/2018 Diabetes mellitus type 1, uncontrolled, without*02/13/2016 11/27/2018 Adult onset hypothyroidism [E03.8] 02/13/2016 11/27/2018 Background diabetic retinopathy (HCC) [E11.3299]02/13/2016 Encounter Status:Closed by AFSANEH MARSHALL on 10/05/24 [facility] OPERATIVE NOon 09-28-2024 OPERATIVE NO HNO ID: [id number] Author: MIGDALIA UREÑA DO Service: Pain Management [...] offered a procedure / surgery at a [facility] facility. It is not possible to know either the risk of delaying the surgery or procedure or chance of getting an infection with perfect accuracy, but a joint decision was made between the patient and the surgeon/proceduralist to proceed at this time with the scheduled surgery/procedure as indicated on the consent form. [facility] approved time out was performed identifying the site, side and level of procedure prior to start of procedure. [facility] - ELECTIVE PROCEDURE Lumbar Transforaminal Epidural Steroid [...] parts of the procedure. Migdalia Ureña DO, CHRISTINE Normal [facility] US LOWER EXTREMITY VENO US DUPLEX [facility] 09-03-2024 [facility] US LOWER EXTREMITY VENOUS DUPLEX LEFT US - US VENOUS UNILATERAL LIMITED Reason for exam: Lower extremity edema Technique: [...] Electronically Signed Gumaro Rogers D.O. 2024-09-03 12:45:[address] ABDOMEN W AND WO IV CONTR Saritha 08-24-2024 CT ABDOMEN W AND WO IV CONTRAST CT of the abdomen CTDI is 30.5 mGy and DLP is 1143.15 mGy-cm Technique: Spiral CT of the abdomen and pelvis was performed initially without contrast and and then subsequent images were obtained after 1 minute and 5-minute coronal and sagittal reconstructed images were also [...] likely. ELECTRONICALLY SIGNED BY: Carlton Martinez DO Normal Not Available CNOVon 08-20-2024 CNOV Office Visit (NSFRVW ) -------- JACQUIE LANTGIUA ([id number]) 1965 M Date Time Provider Department 08/20/24 [...] SURGICAL HISTORY Procedure Laterality Date ADENOIDECTOMY PRIMARY Adenoidectomy LAPS ABD PRTMANDOMENTUM DX W/WO SPEC BR/WA SPX 05/08 Laparoscopy: mass in the omentum TONSILLECTOMY PRIMARY/SECONDARY Tonsillectomy FAMILY HISTORY Problem Relation Age of [...] mouth every 6 hours as needed.Disp: Rfl: cyclobenzapr (more content not included)... Normal [facility] CBC W Auto Differential pane l (Bld)on 08-12-2024 Basophils (Bld) [#/Vol] 0.1 10*3/uL [facility] Basophils/100 WBC (Bld) 1 % Not Estab. [facility] Eosinophils (Bld) [#/Vol] 0.8 10*3/uL High [facility] Eosinophils/100 WBC (Bld) 10 % Not Estab. [facility] Erythrocyte distribution width (RBC) [Ratio] 12.7 % 11.6 - 15.4 % [facility] Hematocrit (Bld) [Volume fraction] 40.2 % 37.5 - 51.0 % [facility] Hemoglobin (Bld) [Mass/Vol] 13.2 g/dL 13.0 - 17.7 g/dL [facility] Immature granulocytes (Bld) [#/Vol] 0.0 10*3/uL [facility] Immature granulocytes/100 WBC (Bld) 1 % Not Estab. [facility] Lymphocytes (Bld) [#/Vol] 2.5 10*3/uL [facility] Lymphocytes/100 WBC (Bld) 32 % Not Estab. [facility] MCH (RBC) [Entitic mass] 30.8 pg 26.6 - 33.0 pg [facility] MCHC (RBC) [Mass/Vol] 32.8 g/dL 31.5 - 35.7 g/dL [facility] MCV (RBC) [Entitic vol] 94 fL 79 - 97 fL [facility] Monocytes (Bld) [#/Vol] 0.9 10*3/uL [facility] Monocytes/100 WBC (Bld) 12 % Not Estab. [facility] Neutrophils (Bld) [#/Vol] 3.4 10*3/uL [facility] Neutrophils/100 WBC (Bld) 44 % Not Estab. [facility] Platelets (Bld) [#/Vol] 272 10*3/uL [facility] RBC (Bld) [#/Vol] 4.28 10*6/uL [facility] WBC (Bld) [#/Vol] 7.8 10*3/uL [facility] Comprehensive metabolic pane broderick 08-12-2024 Albumin [Mass/Vol] 4.5 g/dL 3.8 - 4.9 g/dL [facility] ALP [Catalytic activity/Vol] 64 U/L [facility] ALT [Catalytic activity/Vol] 316 U/L High [facility] AST [Catalytic activity/Vol] 161 U/L High [facility] Bilirubin [Mass/Vol] mg/dL 0.0 - 1 .2 mg/dL [facility] Calcium [Mass/Vol] 10.0 mg/dL 8.7 - 10. 2 mg/dL [facility] Chloride [Moles/Vol] 102 mmol/L 96 - 10 6 mmol/L [facility] CO2 [Moles/Vol] 25 mmol/L 20 - 29 mmol/L [facility] Creatinine [Mass/Vol] 1.03 mg/dL 0.76 - 1.27 mg/dL [facility] GFR/1.73 sq M.predicted among non-blacks MDRD (S/P/Bld) [Vol rate/Area] 84 mL/min/{1.73_m2} 59 - PINF mL/min/1.73 [facility] Globulin (S) [Mass/Vol] 2.1 g/dL 1.5 - 4.5 g/dL [facility] Glucose [Mass/Vol] 111 mg/dL High 70 - 99 mg/dL [facility] Potassium [Moles/Vol] 5.0 mmol/L 3.5 - 5.2 mmol/L [facility] Protein [Mass/Vol] 6.6 g/dL 6.0 - 8.5 g/dL [facility] Sodium [Moles/Vol] 139 mmol/L 134 - 144 mmol/L [facility] Urea nitrogen [Mass/Vol] 18 mg/dL 6 - 24 mg/dL [facility] Urea nitrogen/Creatinine [Mass ratio] 17 mg/mg 9 - 20 [facility] No Panel Informationon 08-12 Interpretation and review of laboratory results Abnormal [facility] Performed at: - [address] [id number] [place] [employer]: Jaime Meyer PhD, Phone: [phone] [facility] US LIVER EXAM: Abdominal Ultrasound, Limited. REASON FOR EXAM: [...] stones identified. No pericholecystic fluid is seen. Raphine sign is not indicated by the performing [...] report is generated using voice recognition reporting ([employer]). On occasion [employer] erroneously drops words from the report or replaces the spoken word with similar sounding words. Please call with any questions/concerns regarding this report.* Dictated and transcribed 08/17/2024/tm This report has been electronically signed and approved by the interpreting radiologist. Electronically Signed Govind Birmingham M.D. 2024-08-17 09:18:43 Normal Not Available Kayleen 07-16-2024 [facility] Telephone ([employer]) -------- JACQUIE LANTIGUA ([id number]) 1965 M Date Time Provider Department 07/16/24 BERNARDINO VILLAGOMEZ During your visit today, we recorded the following information about you: Dora Arevalo MA 08/09/2024 3:46 PM Addendum [employer] form received and placed on providers desk. [id number] Self Admin inj and K0603 REplacement battery 1.5V Faxed with confirmation Allergies As of Date: 07/16/2024 Noted Allergy Reaction HUMIRA (ADALIMUMAB) 08/20/2017 8 - GI Upset METHOTREXATE 05/21/2019 16 - Unknown RED DYE 07/04/2002 16 - Unknown Date Reviewed: 07/08/2024 Reviewed by: Glo Sandra APRN.ROD WELDER - Fully Assessed Reason for Visit: [employer] [Other] Cmt: [id number] Prescriptions as [...] INSULIN PUMP) misc Basal rates: 24:00 --1.6units/hr; 0300:-2.3units/hr;06:00- 1.8;11:00-1.8;12:00-2.0; 16:00-2.2;19:00-2.7;21:0 0-2.4 ;22:00-1.6. Bolus: 2 unit/6 Gms CHO each [...] Date 07/16/2024 Noted Resolved DIABETES UNCOMPL OLGA-UNCONTRLLED [[id number]] 07/20/2002 MIXED HYPERLIPIDEMIA [E78.2] 06/12/2004 HYPOPOTASSEMIA [E87.6] 06/12/2004 ED. [N52.9] 07/22/2005 Peyronie's. [N48.89] 08/08/2005 ABNORMAL THYROID FUNCT STUDY (neg MCAB) [R94.6] 02/03/2006 11/27/2018 acquired hypothyroidism [E03.8] 03/05/2011 11/27/2018 Diabetes mellitus type 1, uncontrolled, without*02/13/2016 11/27/2018 Adult onset hypothyroidism [E03.8] 02/13/2016 11/27/2018 Background diabetic retinopathy (HCC) [E11.3299]02/13/2016 Encounter Status:Closed by MICKEY [facility] C[facility]N Telephone (SPNMAV) -------- JACQUIE LANTIGUA ([id number]) 1965 M Date Time Provider Department 07/13/24 MIGDAILA UREÑA SPNMAV During your visit today, we recorded the following information about you: Yael Villar RN 07/13/2024 10:11 AM Signed The pt is [...] Date Reviewed: 07/08/2024 Reviewed by: Glo Sandra APRN.ROD WELDER - Fully Assessed Reason for Visit: continued [...] INSULIN PUMP) misc Basal rates: 24:00 --1.6units/hr; 0300:-2.3units/hr;06:00- 1.8;11:00-1.8;12:00-2.0; 16:00-2.2;19:00-2.7;21:0 0-2.4 ;22:00-1.6. Bolus: 2 unit/6 Gms CHO each [...] Date 07/13/2024 Noted Resolved DIABETES UNCOMPL OLGA-UNCONTRLLED [[id number]] 07/20/2002 MIXED HYPERLIPIDEMIA [E78.2] 06/12/2004 HYPOPOTASSEMIA [E87.6] 06/12/2004 ED. [N52.9] 07/22/2005 Peyronie's. [N48.89] 08/08/2005 ABNORMAL THYROID FUNCT STUDY (neg MCAB) [R94.6] 02/03/2006 11/27/2018 acquired hypothyroidism [E03.8] 03/05/2011 11/27/2018 Diabetes mellitus type 1, uncontrolled, without*02/13/2016 11/27/2018 Adult onset hypothyroidism [E03.8] 02/13/2016 11/27/2018 Background diabetic retinopathy (HCC) [E11.3299]02/13/2016 Encounter Status:Closed by AFSANEH MARSHALL on 07/13/24 [facility] CNOVlashay 07-08-2024 CNOV Office Visit (ENDOLN ) -------- JACQUIE LANTIGUA Magy ([id number]) 1965 M Date Time Provider Department 07/08/24 3:30 PM GLO SANDRA ENDOLN During your visit today, we recorded the following information about you: Pulse Blood pressure Weight 72/minute 151/82 90.2 kg Glo Sandra, JANIE.ROD WELDER 07/08/2024 3:55 PM Addendum HISTORY OF PRESENT [...] Our staff was unable to login to [employer], therefore pump / sensor was not able [...] PAST SURGICAL HISTORY age 5: ADENOIDECTOMY PRIMARY Comment: Adenoidectomy 05/08: LAPS ABD PRTMANDOMENTUM DX W/WO SPEC BR/WA SPX Comment: Laparoscopy: mass in the omentum age 5: TONSILLECTOMY PRIMARY/SECONDARY Comment: Tonsillectomy FAMILY HISTORY Problem Relation Age [...] INSULIN PUMP) misc Basal rates: 24:00 --1.6units/hr; 0300:-2.3units/hr;06:00- 1.8;11:00-1.8;12:00-2.0; 16:00-2.2;19:00-2.7;21:0 0-2.4 ;22:00-1.6. Bolus: 2 unit/6 Gms CHO each [...] PO 0 Current Facility-Administered Medications Medication Dose (more content not included)... [facility] HEMOGLOBIN A1C (POC)on 07-08 HbA1c (Bld) [Mass fraction] 6.9 % Abnormal 4.3 - 5.6 % [facility] Comment on above: Location:[facility], [address] [place] [address], [facility] Point of care (POC) Hemoglobin A1c (HGBA1C) testing is intended to assess glucose control and provide a management tool for patients known to have diabetes and their healthcare providers. Target HGBA1C levels may depend on specific clinical circumstances. POC HGBA1C is not intended for use as a diagnostic or screening test; laboratory-based testing should be used for diagnostic purposes. The following information is supplemental and may not be applicable to specific diabetes management situations: The POC device art objects repairer provides a normal range of 4.2% to 6.5% for the HGBA1C POC test. However, the [place] [employer] guidelines indicate that patients with HGBA1C in the range of 5.7% to 6.4% are at increased risk for development of diabetes and that intervention by lifestyle modification may be beneficial. A HGBA1C level greater than or equal to 6.5% is considered diagnostic of diabetes, pending confirmatory testing. Use of HGBA1C testing to evaluate glucose control may not be appropriate for patients with hemoglobin variants or other conditions (e.g. anemia) that alter red blood cell lifespan. Interpretation and review of laboratory results Abnormal [facility] Kayleen 07-01-2024 MIRIAN Telephone (SPNMAV) -------- JACQUIE LANTIGUA ([id number]) 1965 M Date Time Provider Department 07/01/24 MIGDALIA UREÑA During your visit today, we recorded the following information about you: Afsaneh Marshall MA 07/01/2024 12:01 PM Signed DATE OF SERVICE: 06/29/2024 PATIENT'S PHONE NUMBERS: [phone] (home) OR @[facility]@ PROVIDER: Dr. Ureña PROCEDURE: Elective Pain Management [...] Unknown Date Reviewed: 06/29/2024 Reviewed by: Paola Galdamez RN - Fully Assessed Reason for Visit: Follow Up Phone Call [[phone]] Prescriptions as of 07/01/2024 - gabapentin (NEURONTIN) [...] INSULIN PUMP) misc Basal rates: 24:00 --1.6units/hr; 0300:-2.3units/hr;06:00- 1.8;11:00-1.8;12:00-2.0; 16:00-2.2;19:00-2.7;21:0 0-2.4 ;22:00-1.6. Bolus: 2 unit/6 Gms CHO each [...] Date 07/01/2024 Noted Resolved DIABETES UNCOMPL OLGA-UNCONTRLLED [[id number]] 07/20/2002 MIXED HYPERLIPIDEMIA [E78.2] 06/12/2004 HYPOPOTASSEMIA [E87.6] 06/12/2004 ED. [N52.9] 07/22/2005 Peyronie's. [N48.89] 08/08/2005 ABNORMAL THYROID FUNCT STUDY (neg MCAB) [R94.6] 02/03/2006 11/27/2018 acquired hypothyroidism [E03.8] 03/05/2011 11/27/2018 Diabetes mellitus type 1, uncontrolled, without*02/13/2016 11/27/2018 Adult onset hypothyroidism [E03.8] 02/13/2016 11/27/2018 Background diabetic retinopathy (HCC) [E11.3299]02/13/2016 Encounter Status:Closed by AFSANEH MARSHALL on 07/01/24 [facility] OPERATIVE NOon 06-29-2024 OPERATIVE NO HNO ID: [id number] Author: MIGDALIA UREÑA DO Service: Pain Management [...] and exercise accordingly after rechecking blood glucose. [facility] approved time out was performed identifying the site, side and level of procedure prior to start of procedure. The patient was offered a procedure / surgery at a [facility] facility. It is not possible to know either the risk of delaying the surgery or procedure or chance of getting an infection with perfect accuracy, but a joint decision was made between the patient and the surgeon/proceduralist to proceed at this time with the scheduled surgery/procedure as indicated on the consent form. [facility] [place] - ELECTIVE PROCEDURE Lumbar Transforaminal Epidural Steroid [...] procedure was done at the second site _ The Lt L5-s1 neural foramen was identified [...] of the procedure. Migdalia Ureña DO, MBA Normal [facility] bone scan whole bodyon [place] bone scan whole body [facility] [place] [address] Nuclear Medicine Report Signed Patient: Jacquie Lantigua MR#: [id number] : 1965 Acct:[id number] Age/Sex: 58 / M ADM Date: 06/25/24 Loc: [place] Room: Type: [facility] Attending Dr: Darryn Araya DO Copies to: Cristy Araya Jr, Alfie Copeland DO Ordering Provider: Cristy Araya Jr, DO [...] Alfie Morin M.D.06/25/2024 2:23 PM Dictation Location: [place] [address] Transcribed By: [facility] 06/25/24 1423 Dictated By: Alfie Morin DO 06/25/24 1359 Signed By: 06/25/24 1423 Normal [facility] CNOVon 06-07-2024 CNOV Office Visit (SPNMAV ) -------- JACQUIE LANTIGUA ([id number]) 1965 M Date Time Provider Department 06/07/24 10:00 AM MIGDALIA UREÑA SPNMAV During your visit today, [...] supervised home exercise program (HEP): No 4. Attendance Secretary: No 5. What are your limitations: Any [...] PAST SURGICAL HISTORY age 5: ADENOIDECTOMY PRIMARY Comment: Adenoidectomy 05/08: LAPS ABD PRTMANDOMENTUM DX W/WO SPEC BR/WA SPX Comment: Laparoscopy: mass in the omentum age 5: TONSILLECTOMY PRIMARY/SECONDARY Comment: Tonsillectomy Social History Tobacco Use Smoking [...] 1 pill once monthlyDisp: 8 tabletRfl: 0 Minocyclin (more content not included)... [facility] Tele[facility] (SPNMAV) -------- JACQUIE LANTIGUA ([id number]) 1965 M Date Time Provider Department 06/07/24 MIGDALIA UREÑA SPNJAV During your visit today, we recorded the following information about you: Afsaneh Marshall MA 06/07/2024 10:41 AM Signed Patient was seen in office today. [facility]. 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 Pt advised to arrive 30 min prior. [...] needed. Advised on location of ASC-2nd floor [facility] Pt will receive a follow up call several days after by a cafeteria team leader. If you experience any increase in weakness, difficulty walking or significant increase in pain that last more than 4 hours, please proceed to the Emergency Room and tell them you had a spine procedure done recently. Additionally, call us and notify us of these symptoms. Please call [phone] if you have any questions. Pt verbalized understanding. Silvia Agosto 06/25/2024 2:57 PM Signed Patient calling today asking if Dr. Ureña knows he has had further work up. Patient states all his testing was clear and wants Dr. Ureña to know this before he does a peer to peer for his procedure that is not covered by his insurance. Please advise [phone]. Afsaneh Marshall MA 06/28/2024 12:48 PM Addendum Peer to peer was done and approved by Dr. Navarrete from [facility]. No approval code was given. Patient was [...] INSULIN PUMP) misc Basal rates: 24:00 --1.6units/hr; 0300:-2.3units/hr;06:00- 1.8;11:00-1.8;12:00-2.0; 16:00-2.2;19:00-2.7;21:0 0-2.4 ;22:00-1.6. Bolus: 2 unit/6 Gms CHO each [...] Date 06/07/2024 Noted Resolved DIABETES UNCOMPL OLGA-UNCONTRLLED [[id number]] 07/20/2002 MIXED HYPERLIPIDEMIA [E78.2] 06/12/2004 HYPOPOTASSEMIA [E87.6] 06/12/2004 ED. [N52.9] 07/22/2005 Peyronie's. [N48.89] 08/08/2005 ABNORMAL THYROID FUNCT STUDY (neg MCAB) [R94.6] 02/03/2006 11/27/2018 acquired hypothyroidism [E03.8] 03/05/2011 11/27/2018 Diabetes mellitus type 1, uncontrolled, without*02/13/2016 11/27/2018 Adult onset hypothyroidism [E03.8] 02/13/2016 11/27/2018 Background diabetic retinopathy (HCC) [E11.3299]02/13/2016 Encounter Status:Closed by AFSANEH MARSHALL on 06/07/24 [facility] MR LUMBAR SPINE W CONTRASTon 06-02-2024 MR LUMBAR SPINE W CONTRAST EXAM: MR LUMBAR SPINE W CONTRAST History: Bone lesion seen on prior MRI [...] most concerning for malignancy. ELECTRONICALLY SIGNED BY: Eve Lin, Normal Not Available MR KNEE LEFT WO IV CONTRASTo n 05-07-2024 MR KNEE LEFT WO IV CONTRAST Exam: MR KNEE LEFT WO IV CONTRAST History: Abnormal x-ray. Soft tissue swelling. Mass. [...] cyst. IMPRESSION: Mild distal patellar tendinosis. Nonspecific prepatellar/infrapatella r subcutaneous soft tissue edema without distinct soft tissue mass or fluid collection. Horizontal tear of the body through posterior horn of the medial meniscus. Mild osteoarthritis. ELECTRONICALLY SIGNED BY: Eve Lin DO Normal Not Available MR LUMBAR SPINE WO CONTRASTo n 05-07-2024 MR LUMBAR SPINE WO CONTRAST EXAM: MR LUMBAR SPINE WO CONTRAST History: [...] lumbar spine as detailed. ELECTRONICALLY SIGNED BY: Eve Lin, DO Normal Not Available XR TIBIA FIBULA 2 VIEWS LEFT on 04-29-2024 XR TIBIA FIBULA 2 VIEWS LEFT EXAM: XR Left Tib/Fib, Two Views (four images). REASON FOR EXAM: Left leg [...] report is generated using voice recognition reporting ([employer]). On occasion [employer] erroneously drops words from the report or replaces the spoken word with similar sounding words. Please call with any questions/concerns regarding this report.* Dictated and transcribed 04/29/24/[email or web address] This report has been electronically signed and approved by the interpreting radiologist. Electronically Signed Damien Shields II, M.D. 2024-04-29 13:06:37 Normal Not Available HEMOGLOBIN A1C (POC)on 12-31 HbA1c (Bld) [Mass fraction] 7.2 % Abnormal 4.3 - 5.6 % [facility] MLR HEMOGLOBIN A1Con 024 Glucose [Mass/Vol] 157 mg/dL [facility] HbA1c (Bld) [Mass fraction] 7.1 % High 4.5 - 6.2 % [facility] Comment on above: ADA RECOMMENDED LIMI T 4.0 - 6.0 ADA THERAPEUTIC TARGET < 7.0 ACTION SUGGESTED > 7.0 Interpretation and review of laboratory results Abnormal [facility] TBH MICROALB CREAT RATIO RAN DOMon 12-06-2023 CREATININE URINE RANDOM 59.36 mg/dL 20.00 - 300.00 mg/dL [facility] MICROALBUM CREATININE RATIO UR 28.6 mg/g 0.0 - 29.9 mg/g [facility] Comment on above: NO MICROALBUMINURIA 0-29 MG/G CLINICAL MICROALBUMINURIA 30-300 MG/G MACROALBUMINURIA >300 MG/G MICROALBUMIN URINE RANDOM 1.7 mg/dL NINF - 30.0 mg/dL [facility] CHEMISTRYOrdered By: Lab ROP User on 06-26-2023 Glucose [Mass/Vol] 417 mg/dL High 55 - 99 mg/dL [facility] P[place] Subsection POC Device SN [id number] Invalid Interpretation Code [facility] POC Subsection POC User ID [id number] Invalid Interpretation Code [facility] P[facility] Subsection POC Username SALVADOR RUSSO Invalid Interpretation Code [facility] P[facility] Subsection Glucose [Mass/Vol] 307 mg/dL High 55 - 99 mg/dL [facility] P[facility] Subsection Comment on above: Result Comment: Ela muller RN/ POC Device SN [id number] Invalid Interpretation Code [facility] POC Subsection POC User ID [id number] Invalid Interpretation Code [facility] P[place] Subsection POC Username LEONID CASH Invalid Interpretation Code [facility] P[place] Subsection CHEMISTRYOrdered By: SYSTEM SYSTEM on 06-05-2023 Anion gap [Moles/Vol] 12 mmol/L Normal 6 - 16 mEq/L [facility] Remisol Chloride [Moles/Vol] 102 mmol/L Normal 101 - 1 11 mmol/L [facility] Remisol CO2 [Moles/Vol] 27 mmol/L Normal 21 - 31 mmol/L [facility] Remisol Creatinine [Mass/Vol] 1.0 mg/dL Normal 0.5 - 1.3 mg/dL [facility] Remisol GFR/1.73 sq M.predicted among non-blacks MDRD (S/P/Bld) [Vol rate/Area] 87 mL/min/1.73 m2 Normal >=59mL/min/ 1.73 m2 [facility] Chem S Glucose [Mass/Vol] 185 mg/dL Normal 55 - 199 mg/dL [facility] Remisol Potassium [Moles/Vol] 3.8 mmol/L Normal 3.5 - 5.3 mmol/L [facility] Remisol Sodium [Moles/Vol] 137 mmol/L Normal 135 - 145 mmol/L [facility] Remisol Urea nitrogen [Mass/Vol] 19 mg/dL Normal 5 - 21 mg/dL [facility] Remisol COAGULATIONOrdered By: Maco Heredia on 06-05-2023 aPTT Coag (PPP) [Time] 33.2 s Normal 25.1 - 36.5 second(s) [facility] Auto Coag INR Coag (PPP) [Relative time] 1.0 {INR} Invalid Interpretation Code [facility] Auto Coag PT Coag (PPP) [Time] 11.1 s Normal 9.4 - 1 2.5 second(s) [facility] Auto Coag HEMATOLOGYOrdered By: SYSTEM SYSTEM on 08-03-2023 Basophils/100 WBC (Bld) 1.0 % Normal 0.0 - 2.0 % [facility] HemeAutoSS Basophils/Leukocytes Auto (Bld) [Pure # fraction] 0.1 E9/L Normal 0.0 - 0.2 E9/L [facility]eAuto[facility] Eosinophils/100 WBC (Bld) 4.1 % Normal 0.0 - 8.0 % [facility]eAuto[facility] Eosinophils/Leukocyte s Auto (Bld) [Pure # fraction] 0.4 E9/L Normal 0.0 - 0.5 E9/L [facility]Auto[facility] Lymphocytes/100 WBC (Bld) 33.5 % Normal 14.0 - 50.0 % [facility]eAuto[facility] Lymphocytes/Leukocyte s Auto (Bld) [Pure # fraction] 3.2 E9/L Normal 1.0 - 4.0 E9/L [facility] Monocytes/100 WBC (Bld) 10.2 % Normal 4.0 - 14.0 % [facility]eAuto[facility] Monocytes/Leukocytes Auto (Bld) [Pure # fraction] 1.0 E9/L Normal 0.2 - 1.0 E9/L [facility] Neutrophils/100 WBC (Bld) 51.2 % Normal 36.0 - 75.0 % [facility]eAuto[facility] Neutrophils/Leukocyte s Auto (Bld) [Pure # fraction] 4.9 E9/L Normal 2.0 - 7.5 E9/L [facility] HEMATOLOGYOrdered By: Sj De Dios on 06-05-2023 Erythrocyte distribution width (RBC) [Ratio] 13.7 % Normal 10.9 - 14.2 % [facility] Hematocrit (Bld) [Volume fraction] 37.1 % Low 37.7 - 49.0 % [facility] Hemoglobin (Bld) [Mass/Vol] 12.8 g/dL Low 13.5 - 17.5 gm/dL [facility] MCH (RBC) [Entitic mass] 30.4 pg Normal 27.0 - 34.0 pg [facility] MCHC (RBC) [Mass/Vol] 34.5 g/dL Normal 31.4 - 36.0 gm/dL [facility] MCV (RBC) [Entitic vol] 87.9 fL Normal 80.0 - 100.0 fL [facility] Platelet mean volume (Bld) [Entitic vol] 8.4 fL Normal 6.4 - 10.8 fL [facility] Platelets (Bld) [#/Vol] 252.0 E9/L Normal 150.0 - 500.0 E9/L [facility] HemeAutoSS RBC (Bld) [#/Vol] 4.2 E12/L Low 4.3 - 5.9 E12/L [facility] HemeAutoSS WBC corrected for nucl RBC Auto (Bld) [#/Vol] 9.6 E9/L Normal 4.0 - 11.0 E9/L [facility] HemeAutoSS MRI Wrist w/o Lefton 023 MRI Wrist w/o Left HISTORY: Left wrist pain for around 5 months. No recent injury. Technique: Routine MRI of the wrist, left side Comparison: Radiographs 10/10/2022. RESULT: Bone Marrow: Diffusely abnormal signal involving the lunate with increased T2 signal and decreased T1 signal, suggestive of osteonecrosis, correlating with the recent radiographs. Small amount of subchondral cystic change, likely degenerative, involving the proximal pole of the capitate. Large subchondral cystic change involving the trapezium, also likely degenerative. Ligaments: The scapholunate ligament and lunotriquetral ligament appear to be intact. Triangular Fibrocartilage: The triangular fibrocartilage appears to be intact. Cartilage: Subchondral degenerative signal and cystic changes above, especially of the trapezium and proximal capitate. Tendons: The flexor and extensor tendons are intact. Small amount of increased fluid in the flexor carpi radialis tendon sheath, suggestive of tenosynovitis. Nerves: The visualized portions of the median and ulnar nerves appear to be within normal limits. Joint Fluid and Synovium: There is a physiological quantity of joint fluid. No evidence of synovitis. OTHER: No other significant abnormality. 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 Mild tenosynovitis involving flexor carpi radialis. Degenerative changes as discussed. Report reported and signed by Gumaro Elizondo on 2022 0918 Normal [facility] [employer] GLYCOHEMOGLOBIN A1Con 2022 ADA RECOMMENDATION SEE BELOW Normal [facility] Comment on above: Result Comment: ADA RECOMMENDED LIMIT 4.0 - 6.0 ADA THERAPEUTIC TARGET < 7.0 ACTION SUGGESTED > 7.0 Performed By: #### A 1C #### [facility] [address] [place] [address] Dr. Otilia Pruett Glucose [Mass/Vol] 160 mg/dL Normal [facility] Comment on above: Performed By: #### A 1C #### [facility] [address] [place] [address] Dr. Otilia Pruett HbA1c (Bld) [Mass fraction] 7.2 % Critically high 4.5-6.2 [facility] Comment on above: Performed By: #### A 1C #### [facility] [address] [place] [address] Dr. Otilia Pruett MICROALB CREAT RATIO RANDOMo n 11-16-2022 mALB <1.3 Normal <=30.0 [facility] Comment on above: Performed By: #### M CRR #### [facility] [address] [place] [address] Dr. Otilia Pruett MALB CR RATIO 13.4 mg/g Normal 0.0-29.9 [facility] Comment on above: Performed By: #### M CRR #### [facility] [address] [place] [address] Dr. Otilia Pruett MALB CR RATIO RANGE SEE BELOW Normal [facility] Comment on above: Result Comment: NO M ICROALBUMINURIA 0-29 MG/G CLINICAL MICROALBUMINURIA 30-300 MG/G MACROALBUMINURIA >300 MG/G Performed By: #### M CRR #### [facility] [address] [place] [address] Dr. Otilia Pruett URINE CREAT 97.12 mg/dL Normal 20.00-300.0 0 [facility] Comment on above: Performed By: #### M CRR #### [facility] [address] [place] [address] Dr. Otilia Pruett PROF CHEM 8 (BAS METB)on Anion gap [Moles/Vol] 10.1 mmol/L Normal [facility] Comment on above: Performed By: #### C MP, LIPID #### [facility] [address] [place] [address] Dr. Otilia Pruett Calcium [Mass/Vol] 9.3 mg/dL Normal 8.5-10.1 [facility] Comment on above: Performed By: #### C MP, LIPID #### [facility] [address] [place] [address] [address] Otilia Pruett Chloride [Moles/Vol] 101 mmol/L Normal 98-107 [facility] Comment on above: Performed By: #### C MP, LIPID #### [facility] [address] [place] [address] [address] Otilia Pruett CO2 [Moles/Vol] 30.0 mmol/L Normal 21.0-32.0 [facility] Comment on above: Performed By: #### C MP, LIPID #### [facility] [address] [place] [address] Dr. Otilia Pruett Creatinine [Mass/Vol] 0.94 mg/dL Normal 0.70-1.30 [facility] Comment on above: Performed By: #### C MP, LIPID #### [facility] [address] [place] [address] Dr. Otilia Pruett EGFR-AF LIBYAN >60 Normal >=60 [facility] Comment on above: Performed By: #### C MP, LIPID #### [facility] [address] [place] [address] Dr. Otilia Pruett EGFR-NON AF LIBYAN >60 Normal >=60 [facility] Comment on above: Performed By: #### C MP, LIPID #### [facility] [address] [place] [address] Dr. Otilia Pruett Glucose [Mass/Vol] 169 mg/dL Critically high 74-106 [facility] Comment on above: Performed By: #### C MP, LIPID #### [facility] [address] [place] [address] Dr. Otilia Pruett Potassium [Moles/Vol] 4.1 mmol/L Normal 3.5-5.1 [facility] Comment on above: Performed By: #### C MP, LIPID #### [facility] [address] [place] [address] Dr. Otilia Pruett Sodium [Moles/Vol] 137 mmol/L Normal 136-145 [facility] Comment on above: Performed By: #### C MP, LIPID #### [facility] [address] [place] [address] Dr. Otilia Pruett Urea nitrogen [Mass/Vol] 17.0 mg/dL Normal 7.0-18.0 [facility] Comment on above: Performed By: #### C MP, LIPID #### [facility] [address] [place] [address] Dr. Otilia Pruett Urea nitrogen/Creatinine [Mass ratio] 18.1 mg/mg Normal [facility] Comment on above: Performed By: #### C MP, LIPID #### [facility] [address] [place] [address] Dr. Otilia Pruett TSHon 11-16-2022 TSH 2.092 uIU/mL Normal 0.358-3.740 [facility] Comment on above: Performed By: #### C MP, LIPID #### [facility] [address] [place] [address] Dr. Otilia Pruett XR Wrist Complete Left*on XR Wrist Complete Left* HISTORY: Wrist pain in the scaphoid region for 2 months. No known injury. COMPARISON: None available TECHNIQUE: AP, lateral, oblique and scaphoid views of the wrist obtained. FINDINGS: No acute fracture or dislocation. Carpal and radiocarpal alignment is satisfactory. Cortical irregularity of the ulnar border of the lunate is nonspecific. Soft tissues are within normal limits. IMPRESSION: Nonspecific cortical irregularity of the ulnar border of the lunate. MRI of the wrist without contrast is recommended to further evaluate. Report reported and signed by Eve Lin on 10/11/2022 1305 Normal [facility] CBC AUTO DIFFon 06-20-2022 BASO # 0.1 103/ul Normal 0.0-0.1 [facility] Comment on above: Performed By: #### H FPFCBC #### [facility] [address] [place] [address] Dr. Otilia Pruett Basophils/100 WBC (Bld) 0.7 % Normal 0.2-2.0 [facility] Comment on above: Performed By: #### H FPFCBC #### [facility] [address] [place] [address] Dr. Otilia Pruett EO # 0.6 103/ul Normal 0.0-0.7 [facility] Comment on above: Performed By: #### H FPFCBC #### [facility] [address] [place] [address] Dr. Otilia Pruett Eosinophils/100 WBC (Bld) 5.6 % Normal 0.9-7.0 [facility] Comment on above: Performed By: #### H FPFCBC #### [facility] [address] [place] [address] Dr. Otilia Pruett Erythrocyte distribution width (RBC) [Ratio] 13.5 % Normal 11.0-15.0 [facility] Comment on above: Performed By: #### H FPFCBC #### [facility] [address] [place] [address] Dr. Otilia Pruett Hematocrit (Bld) [Volume fraction] 38.8 % Critically low 42.0-54.0 [facility] Comment on above: Performed By: #### H FPFCBC #### [facility] [address] [place] [address] Dr. Otilia Pruett Hemoglobin (Bld) [Mass/Vol] 12.7 g/dL Critically low 14.0-18.0 [facility] Comment on above: Performed By: #### H FPFCBC #### [facility] [address] [place] [address] Dr. Otilia Pruett IG # 0.06 10e3/ul Critically high 0.00-0.03 [facility] Comment on above: Performed By: #### H FPFCBC #### [facility] [address] [place] [address] Dr. Otilia Pruett IG % 0.5 % Normal 0.0-0.5 [facility] Comment on above: Performed By: #### H FPFCBC #### [facility] [address] [place] [address] Dr. Otilia Pruett LYMPH # 3.6 103/ul Normal 1.2-3.8 [facility] Comment on above: Performed By: #### H FPFCBC #### [facility] [address] [place] [address] Dr. Otilia Pruett Lymphocytes/100 WBC (Bld) 31.6 % Normal 20.5-60.0 [facility] Comment on above: Performed By: #### H FPFCBC #### [facility] [address] [place] [address] Dr. Otilia Pruett MCH (RBC) [Entitic mass] 29.3 pg Normal 25.9-34.0 [facility] Comment on above: Performed By: #### H FPFCBC #### [facility] [address] [place] [address] Dr. Otilia Pruett MCHC (RBC) [Mass/Vol] 32.7 g/dL Normal 29.9-35.2 [facility] Comment on above: Performed By: #### H FPFCBC #### [facility] [address] [place] [address] Dr. Otilia Pruett MCV (RBC) [Entitic vol] 89.4 fL Normal 80.0-94.0 [facility] Comment on above: Performed By: #### H FPFCBC #### [facility] [address] [place] [address] Dr. Otilia Pruett MONO # 0.9 103/ul Critically high 0.3-0.8 [facility] Comment on above: Performed By: #### H FPFCBC #### [facility] [address] [place] [address] Dr. Otilia Pruett Monocytes/100 WBC (Bld) 8.2 % Normal 1.7-12.0 [facility] Comment on above: Performed By: #### H FPFCBC #### [facility] [address] [place] [address] Dr. Otilia Pruett NEUT # 6.0 103/ul Normal 1.4-6.5 [facility] Comment on above: Performed By: #### H FPFCBC #### [facility] [address] [place] [address] Dr. Otilia Pruett Neutrophils/100 WBC (Bld) 53.4 % Normal 43.0-75.0 [facility] Comment on above: Performed By: #### H FPFCBC #### [facility] [address] [address] [address] Otilia Pruett Platelet mean volume (Bld) [Entitic vol] 9.8 fL Normal 9.5-13.5 [facility] Comment on above: Performed By: #### H FPFCBC #### [facility] [address] [address] [address] Otilia Pruett PLT 327 103/ul Normal 150-450 [facility] Comment on above: Performed By: #### H FPFCBC #### [facility] [address] [address] [address] Otilia Pruett RBC 4.34 106/ul Critically low 4.70-6.10 [facility] Comment on above: Performed By: #### H FPFCBC #### [facility] [address] [place] [address] Dr. Otilia Pruett WBC 11.2 103/ul Critically high 4.0-11.0 [facility] Comment on above: Performed By: #### H FPFCBC #### [facility] [address] [place] [address] Dr. Otilia Pruett [employer] PROFILE (MALE)on 06-20-2022 Albumin [Mass/Vol] 3.6 g/dL Normal 3.4-5.0 [facility] Comment on above: Performed By: #### H FPFM #### [facility] [address] [place] [address] Dr. Otilia Pruett Albumin/Globulin [Mass ratio] 1.1 {ratio} Normal [facility] Comment on above: Performed By: #### H FPFM #### [facility] [address] [place] [address] Dr. Otilia Pruett ALP [Catalytic activity/Vol] 68 U/L Normal 46-116 [facility] Comment on above: Performed By: #### H FPFM #### [facility] [address] [address] [address] Otilia Pruett ALT [Catalytic activity/Vol] 43 U/L Normal 16-63 [facility] Comment on above: Performed By: #### H FPFM #### [facility] [address] [address] [address] Otilia Pruett AST [Catalytic activity/Vol] 33 U/L Normal 15-37 [facility] Comment on above: Performed By: #### H FPFM #### [facility] [address] [place] [address] Dr. Otilia Pruett Bilirubin [Mass/Vol] 0.4 mg/dL Normal 0.2-1.0 [facility] Comment on above: Performed By: #### H FPFM #### [facility] [address] [place] [address] Dr. Otilia Pruett Calcium [Mass/Vol] 9.0 mg/dL Normal 8.5-10.1 [facility] Comment on above: Performed By: #### H FPFM #### [facility] [address] [place] [address] Dr. Otilia Pruett Chloride [Moles/Vol] 100 mmol/L Normal 98-107 [facility] Comment on above: Performed By: #### H FPFM #### [facility] [address] [place] [address] Dr. Otilia Pruett CHOL-HDL RATIO NORM SEE BELOW Normal [facility] Comment on above: Result Comment: 3.3 - 4.4 LOW RISK 4.4 - 7.1 AVERAGE RISK 7.1 - 11.0 MODERATE RISK >11.0 HIGH RISK Performed By: #### H FPFM #### [facility] [address] [place] [address] Dr. Otilia Pruett Cholesterol [Mass/Vol] 180 mg/dL Normal <=200 [facility] Comment on above: Performed By: #### H FPFM #### [facility] [address] [place] [address] Dr. Otilia Pruett Cholesterol in HDL [Mass/Vol] 68 mg/dL Critically high 40-60 [facility] Comment on above: Performed By: #### H FPFM #### [facility] [address] [address] [address] Otilia Pruett Cholesterol in LDL [Mass/Vol] 87.2 mg/dL Normal [facility] Comment on above: Performed By: #### H FPFM #### [facility] [address] [address] [address] Otilia Pruett Cholesterol.total/Cho lesterol in HDL [Mass ratio] 2.6 {ratio} Normal [facility] Comment on above: Performed By: #### H FPFM #### [facility] [address] [address] [address] Otilia Pruett CO2 [Moles/Vol] 29.3 mmol/L Normal 21.0-32.0 [facility] Comment on above: Performed By: #### H FPFM #### [facility] [address] [address] [address] Otilia Pruett Creatinine [Mass/Vol] 0.93 mg/dL Normal 0.70-1.30 [facility] Comment on above: Performed By: #### H FPFM #### [facility] [address] [address] [address] Otilia Pruett Globulin (S) [Mass/Vol] 3.4 g/dL Normal [facility] Comment on above: Performed By: #### H FPFM #### [facility] [address] [address] [address] Otilia Pruett Glucose [Mass/Vol] 157 mg/dL Critically high 74-106 [facility] Comment on above: Performed By: #### H FPFM #### [facility] [address] [address] [address] Otilia Pruett HDL NORMAL > or = 60 mg/dl - LO W CARDIOVASCULAR RISK <40 mg/dl - HIGH CARDIOVASCULAR RISK Normal [facility] Comment on above: Performed By: #### H FPFM #### [facility] [address] [address] [address] Otilia Pruett LDL CALC NORMAL SEE BELOW Normal [facility] Comment on above: Result Comment: <100 mg/dl OPTIMAL 100 - 129 mg/dl NEAR OR ABOVE OPTIMAL 130 - 159 mg/dl BORDERLINE HIGH 160 - 189 mg/dl HIGH >190 mg/dl VERY HIGH Performed By: #### H FPFM #### [facility] [address] [address] [address] Otilia Pruett Potassium [Moles/Vol] 4.0 mmol/L Normal 3.5-5.1 [facility] Comment on above: Performed By: #### H FPFM #### [facility] [address] [address] [address] Otilia Pruett Protein [Mass/Vol] 7.0 g/dL Normal 6.4-8.2 [facility] Comment on above: Performed By: #### H FPFM #### [facility] [address] [place] [address] Dr. Otilia Pruett Sodium [Moles/Vol] 137 mmol/L Normal 136-145 [facility] Comment on above: Performed By: #### H FPFM #### [facility] [address] [address] [address] Otilia Pruett Triglyceride [Mass/Vol] 124 mg/dL Normal <=150 [facility] Comment on above: Performed By: #### H FPFM #### [facility] [address] [place] [address] Dr. Otilia Pruett TSH 2.642 uIU/mL Normal 0.358-3.740 [facility] Comment on above: Performed By: #### H FPFM #### [facility] [address] [place] [address] Dr. Otilia Pruett Urea nitrogen [Mass/Vol] 16.0 mg/dL Normal 7.0-18.0 [facility] Comment on above: Performed By: #### H FPFM #### [facility] [address] [place] [address] Dr. Otilia Pruett Urea nitrogen/Creatinine [Mass ratio] 17.2 mg/mg Normal [facility] Comment on above: Performed By: #### H FPFM #### [facility] [address] [place] [address] Dr. Otilia Pruett VLDL CALC 24.8 mg/dL Normal [facility] Comment on above: Performed By: #### H FPFM #### [facility] [address] [address] [address] Otilia Pruett FREE T4on 05-20-2022 Free T4 [Mass/Vol] 0.76 ng/dL Normal 0.76-1.46 [facility] Comment on above: Performed By: #### C MP, LIPID #### [facility] [address] [address] [address] Otilia Pruett GLYCOHEMOGLOBIN A1Con 2021 ADA RECOMMENDATION SEE BELOW Normal [facility] Comment on above: Result Comment: ADA RECOMMENDED LIMIT 4.0 - 6.0 ADA THERAPEUTIC TARGET < 7.0 ACTION SUGGESTED > 7.0 Performed By: #### A 1C #### [facility] [address] [place] [address] Dr. Otilia Pruett Glucose [Mass/Vol] 160 mg/dL Normal [facility] Comment on above: Performed By: #### A 1C #### [facility] [address] [place] [address] Dr. Otilia Pruett HbA1c (Bld) [Mass fraction] 7.2 % Critically high 4.5-6.2 [facility] Comment on above: Performed By: #### A 1C #### [facility] [address] [place] [address] Dr. Otilia Pruett LIPID PROFILEon 05-20-2022 CHOL-HDL RATIO NORM SEE BELOW Normal [facility] Comment on above: Result Comment: 3.3 - 4.4 LOW RISK 4.4 - 7.1 AVERAGE RISK 7.1 - 11.0 MODERATE RISK >11.0 HIGH RISK Performed By: #### C MP, LIPID #### [facility] [address] [place] [address] Dr. Otilia Pruett Cholesterol [Mass/Vol] 158 mg/dL Normal <=200 [facility] Comment on above: Performed By: #### C MP, LIPID #### [facility] [address] [address] [address] Otilia Pruett Cholesterol in HDL [Mass/Vol] 59 mg/dL Normal 40-60 [facility] Comment on above: Performed By: #### C MP, LIPID #### [facility] [address] [address] [address] Otilia Pruett Cholesterol in LDL [Mass/Vol] 73.0 mg/dL Normal [facility] Comment on above: Performed By: #### C MP, LIPID #### [facility] [address] [address] [address] Otilia Pruett Cholesterol.total/Cho lesterol in HDL [Mass ratio] 2.7 {ratio} Normal [facility] Comment on above: Performed By: #### C MP, LIPID #### [facility] [address] [address] [address] Otilia Pruett HDL NORMAL > or = 60 mg/dl - LO W CARDIOVASCULAR RISK <40 mg/dl - HIGH CARDIOVASCULAR RISK Normal [facility] Comment on above: Performed By: #### C MP, LIPID #### [facility] [address] [address] [address] Otilia Pruett LDL CALC NORMAL SEE BELOW Normal [facility] Comment on above: Result Comment: <100 mg/dl OPTIMAL 100 - 129 mg/dl NEAR OR ABOVE OPTIMAL 130 - 159 mg/dl BORDERLINE HIGH 160 - 189 mg/dl HIGH >190 mg/dl VERY HIGH Performed By: #### C MP, LIPID #### [facility] [address] [address] [address] Otilia Pruett Triglyceride [Mass/Vol] 130 mg/dL Normal <=150 [facility] Comment on above: Performed By: #### C MP, LIPID #### [facility] [address] [address] [address] Otilia Pruett VLDL CALC 26.0 mg/dL Normal [facility] Comment on above: Performed By: #### C MP, LIPID #### [facility] [address] [address] [address] Otilia Pruett MICROALB CREAT RATIO RANDOMo n 05-20-2022 mALB <1.3 Normal <=30.0 [facility] Comment on above: Performed By: #### M CRR #### [facility] [address] [address] [address] Otilia Pruett MALB CR RATIO 33.8 mg/g Critically high 0.0-29.9 [facility] Comment on above: Performed By: #### M CRR #### [facility] [address] [address] [address] Otilia Pruett MALB CR RATIO RANGE SEE BELOW Normal [facility] Comment on above: Result Comment: NO M ICROALBUMINURIA 0-29 MG/G CLINICAL MICROALBUMINURIA 30-300 MG/G MACROALBUMINURIA >300 MG/G Performed By: #### M CRR #### [facility] [address] [address] [address] Otilia Pruett URINE CREAT 38.48 mg/dL Normal 20.00-300.0 0 [facility] Comment on above: Performed By: #### M CRR #### [facility] [address] [place] [address] Dr. Otilia Pruett PROF 14(COMP METB)on 022 Albumin [Mass/Vol] 3.6 g/dL Normal 3.4-5.0 [facility] Comment on above: Performed By: #### C MP, LIPID #### [facility] [address] [place] [address] Dr. Otilia Pruett Albumin/Globulin [Mass ratio] 1.0 {ratio} Normal [facility] Comment on above: Performed By: #### C MP, LIPID #### [facility] [address] [place] [address] Dr. Otilia Pruett ALP [Catalytic activity/Vol] 55 U/L Normal 46-116 [facility] Comment on above: Performed By: #### C MP, LIPID #### [facility] [address] [place] [address] Dr. Otilia Pruett ALT [Catalytic activity/Vol] 34 U/L Normal 16-63 [facility] Comment on above: Performed By: #### C MP, LIPID #### [facility] [address] [place] [address] Dr. Otilia Pruett Anion gap [Moles/Vol] 9.2 mmol/L Normal [facility] Comment on above: Performed By: #### C MP, LIPID #### [facility] [address] [address] [address] Otilia Pruett AST [Catalytic activity/Vol] 20 U/L Normal 15-37 [facility] Comment on above: Performed By: #### C MP, LIPID #### [facility] [address] [place] [address] Dr. Otilia Pruett Bilirubin [Mass/Vol] 0.2 mg/dL Normal 0.2-1.0 [facility] Comment on above: Performed By: #### C MP, LIPID #### [facility] [address] [place] [address] Dr. Otilia Pruett Calcium [Mass/Vol] 9.4 mg/dL Normal 8.5-10.1 [facility] Comment on above: Performed By: #### C MP, LIPID #### [facility] [address] [place] [address] Dr. Otilia Pruett Chloride [Moles/Vol] 102 mmol/L Normal 98-107 [facility] Comment on above: Performed By: #### C MP, LIPID #### [facility] [address] [place] [address] Dr. Otilia Pruett CO2 [Moles/Vol] 30.1 mmol/L Normal 21.0-32.0 [facility] Comment on above: Performed By: #### C MP, LIPID #### [facility] [address] [place] [address] Dr. Otilia Pruett Creatinine [Mass/Vol] 1.02 mg/dL Normal 0.70-1.30 [facility] Comment on above: Performed By: #### C MP, LIPID #### [facility] [address] [place] [address] Dr. Otilia Pruett EGFR-AF LIBYAN >60 Normal >=[address] [facility] Comment on above: Performed By: #### C MP, LIPID #### [facility] [address] [place] [address] Dr. Otilia Pruett EGFR-NON AF LIBYAN >60 Normal >=60 [facility] Comment on above: Performed By: #### C MP, LIPID #### [facility] [address] [address] [address] Otilia Pruett Globulin (S) [Mass/Vol] 3.5 g/dL Normal [facility] Comment on above: Performed By: #### C MP, LIPID #### [facility] [address] [address] [address] Otilia Pruett Glucose [Mass/Vol] 201 mg/dL Critically high 74-106 [facility] Comment on above: Performed By: #### C MP, LIPID #### [facility] [address] [address] [address] Otilia rPuett Potassium [Moles/Vol] 4.3 mmol/L Normal 3.5-5.1 [facility] Comment on above: Performed By: #### C MP, LIPID #### [facility] [address] [place] [address] Dr. Otilia Pruett Protein [Mass/Vol] 7.1 g/dL Normal 6.4-8.2 [facility] Comment on above: Performed By: #### C MP, LIPID #### [facility] [address] [place] [address] Dr. Otilia Pruett Sodium [Moles/Vol] 137 mmol/L Normal 136-145 [facility] Comment on above: Performed By: #### C MP, LIPID #### [facility] [address] [place] [address] Dr. Otilia Pruett Urea nitrogen [Mass/Vol] 18.0 mg/dL Normal 7.0-18.0 [facility] Comment on above: Performed By: #### C MP, LIPID #### [facility] [address] [address] [address] Otilia Pruett Urea nitrogen/Creatinine [Mass ratio] 17.6 mg/mg Normal [facility] Comment on above: Performed By: #### C MP, LIPID #### [facility] [address] [address] [address] Otilia Pruett TSHon 05-20-2022 TSH 2.853 uIU/mL Normal 0.358-3.740 [facility] Comment on above: Performed By: #### C MP, LIPID #### [facility] [address] [place] [address] Dr. Otilia Pruett CBC AUTO DIFFon 04-27-2022 BASO # 0.1 103/ul Normal 0.0-0.1 [facility] Comment on above: Performed By: #### C MP, LIPID #### [facility] [address] [place] [address] Dr. Otilia Pruett Basophils/100 WBC (Bld) 0.7 % Normal 0.2-2.0 [facility] Comment on above: Performed By: #### C MP, LIPID #### [facility] [address] [place] [address] Dr. Otilia Pruett EO # 0.8 103/ul Critically high 0.0-0.7 [facility] Comment on above: Performed By: #### C MP, LIPID #### [facility] [address] [place] [address] Dr. Otilia Pruett Eosinophils/100 WBC (Bld) 7.2 % Critically high 0.9-7.0 [facility] Comment on above: Performed By: #### C MP, LIPID #### [facility] [address] [place] [address] Dr. Otilia Pruett Erythrocyte distribution width (RBC) [Ratio] 13.6 % Normal 11.0-15.0 [facility] Comment on above: Performed By: #### C MP, LIPID #### [facility] [address] [place] [address] Dr. Otilia Pruett Hematocrit (Bld) [Volume fraction] 40.4 % Critically low 42.0-54.0 [facility] Comment on above: Performed By: #### C MP, LIPID #### [facility] [address] [place] [address] Dr. Otilia Pruett Hemoglobin (Bld) [Mass/Vol] 13.3 g/dL Critically low 14.0-18.0 [facility] Comment on above: Performed By: #### C MP, LIPID #### [facility] [address] [address] [address] Otilia Pruett IG # 0.05 10e3/ul Critically high 0.00-0.03 [facility] Comment on above: Performed By: #### C MP, LIPID #### [facility] [address] [address] [address] Otilia Pruett IG % 0.5 % Normal 0.0-0.5 [facility] Comment on above: Performed By: #### C MP, LIPID #### [facility] [address] [address] [address] Otilia Pruett LYMPH # 3.3 103/ul Normal 1.2-3.8 [facility] Comment on above: Performed By: #### C MP, LIPID #### [facility] [address] [place] [address] Dr. Otilia Pruett Lymphocytes/100 WBC (Bld) 30.3 % Normal 20.5-60.0 [facility] Comment on above: Performed By: #### C MP, LIPID #### [facility] [address] [place] [address] Dr. Otilia Pruett MANUAL DIFF REQ NO Normal [facility] Comment on above: Performed By: #### C MP, LIPID #### [facility] [address] [place] [address] Dr. Otilia Pruett MCH (RBC) [Entitic mass] 28.7 pg Normal 25.9-34.0 [facility] Comment on above: Performed By: #### C MP, LIPID #### [facility] [address] [place] [address] Dr. Otilia Pruett MCHC (RBC) [Mass/Vol] 32.9 g/dL Normal 29.9-35.2 [facility] Comment on above: Performed By: #### C MP, LIPID #### [facility] [address] [place] [address] Dr. Otilia Pruett MCV (RBC) [Entitic vol] 87.3 fL Normal 80.0-94.0 [facility] Comment on above: Performed By: #### C MP, LIPID #### [facility] [address] [address] [address] Otilia Pruett MONO # 0.9 103/ul Critically high 0.3-0.8 [facility] Comment on above: Performed By: #### C MP, LIPID #### [facility] [address] [address] [address] Otilia Pruett Monocytes/100 WBC (Bld) 8.3 % Normal 1.7-12.0 [facility] Comment on above: Performed By: #### C MP, LIPID #### [facility] [address] [address] [address] Otilia Pruett NEUT # 5.8 103/ul Normal 1.4-6.5 [facility] Comment on above: Performed By: #### C MP, LIPID #### [facility] [address] [place] [address] Dr. Otilia Pruett Neutrophils/100 WBC (Bld) 53.0 % Normal 43.0-75.0 [facility] Comment on above: Performed By: #### C MP, LIPID #### [facility] [address] [place] [address] Dr. Otilia Pruett Platelet mean volume (Bld) [Entitic vol] 9.6 fL Normal 9.5-13.5 [facility] Comment on above: Performed By: #### C MP, LIPID #### [facility] [address] [place] [address] Dr. Otilia Pruett PLT 285 103/ul Normal 150-450 [facility] Comment on above: Performed By: #### C MP, LIPID #### [facility] [address] [place] [address] Dr. Otilia Pruett RBC 4.63 106/ul Critically low 4.70-6.10 [facility] Comment on above: Performed By: #### C MP, LIPID #### [facility] [address] [address] [address] Otilia Pruett WBC 10.9 103/ul Normal 4.0-11.0 [facility] Comment on above: Performed By: #### C MP, LIPID #### [facility] [address] [place] [address] Dr. Otilia Pruett GLYCOHEMOGLOBIN A1Con 2021 ADA RECOMMENDATION SEE BELOW Normal [facility] Comment on above: Result Comment: ADA RECOMMENDED LIMIT 4.0 - 6.0 ADA THERAPEUTIC TARGET < 7.0 ACTION SUGGESTED > 7.0 Performed By: #### A 1C #### [facility] [address] [address] [address] Otilia Pruett Glucose [Mass/Vol] 163 mg/dL Normal [facility] Comment on above: Performed By: #### A 1C #### [facility] [address] [place] [address] Dr. Otilia Pruett HbA1c (Bld) [Mass fraction] 7.3 % Critically high 4.5-6.2 [facility] Comment on above: Performed By: #### A 1C #### [facility] [address] [place] [address] Dr. Otilia Pruett LIPID PROFILEon 04-27-2022 CHOL-HDL RATIO NORM SEE BELOW Normal [facility] Comment on above: Result Comment: 3.3 - 4.4 LOW RISK 4.4 - 7.1 AVERAGE RISK 7.1 - 11.0 MODERATE RISK >11.0 HIGH RISK Performed By: #### C MP, LIPID #### [facility] [address] [place] [address] Dr. Otiila Pruett Cholesterol [Mass/Vol] 169 mg/dL Normal <=200 [facility] Comment on above: Performed By: #### C MP, LIPID #### [facility] [address] [place] [address] Dr. Otilia Pruett Cholesterol in HDL [Mass/Vol] 55 mg/dL Normal 40-60 [facility] Comment on above: Performed By: #### C MP, LIPID #### [facility] [address] [place] [address] Dr. Otilia Pruett Cholesterol in LDL [Mass/Vol] 81.0 mg/dL Normal [facility] Comment on above: Performed By: #### C MP, LIPID #### [facility] [address] [address] [address] Otilia Pruett Cholesterol.total/Cho lesterol in HDL [Mass ratio] 3.1 {ratio} Normal [facility] Comment on above: Performed By: #### C MP, LIPID #### [facility] [address] [place] [address] Dr. Otilia Pruett HDL NORMAL > or = 60 mg/dl - LO W CARDIOVASCULAR RISK <40 mg/dl - HIGH CARDIOVASCULAR RISK Normal [facility] Comment on above: Performed By: #### C MP, LIPID #### [facility] [address] [address] [address] Otilia Pruett LDL CALC NORMAL SEE BELOW Normal [facility] Comment on above: Result Comment: <100 mg/dl OPTIMAL 100 - 129 mg/dl NEAR OR ABOVE OPTIMAL 130 - 159 mg/dl BORDERLINE HIGH 160 - 189 mg/dl HIGH >190 mg/dl VERY HIGH Performed By: #### C MP, LIPID #### [facility] [address] [place] [address] Dr. Otilia Pruett Triglyceride [Mass/Vol] 165 mg/dL Critically high <=150 [facility] Comment on above: Performed By: #### C MP, LIPID #### [facility] [address] [place] [address] Dr. Otilia Pruett VLDL CALC 33.0 mg/dL Normal [facility] Comment on above: Performed By: #### C MP, LIPID #### [facility] [address] [place] [address] Dr. Otilia Pruett MICROALB CREAT RATIO RANDOMo n 04-27-2022 mALB <1.3 Normal <=30.0 [facility] Comment on above: Performed By: #### M CRR #### [facility] [address] [place] [address] Dr. Otilia Pruett MALB CR RATIO RANGE SEE BELOW Normal [facility] Comment on above: Result Comment: NO M ICROALBUMINURIA 0-29 MG/G CLINICAL MICROALBUMINURIA 30-300 MG/G MACROALBUMINURIA >300 MG/G Performed By: #### M CRR #### [facility] [address] [place] [address] Dr. Otilia Pruett URINE CREAT 71.55 mg/dL Normal 20.00-300.0 0 [facility] Comment on above: Performed By: #### M CRR #### [facility] [address] [place] [address] Dr. Otilia Pruett PROF 14(COMP METB)on 04-27- 022 Albumin [Mass/Vol] 3.8 g/dL Normal 3.4-5.0 [facility] Comment on above: Performed By: #### C MP, LIPID #### [facility] [address] [place] [address] Dr. Otilia Pruett Albumin/Globulin [Mass ratio] 1.2 {ratio} Normal [facility] Comment on above: Performed By: #### C MP, LIPID #### [facility] [address] [place] [address] Dr. Otilia Pruett ALP [Catalytic activity/Vol] 58 U/L Normal 46-116 [facility] Comment on above: Performed By: #### C MP, LIPID #### [facility] [address] [place] [address] Dr. Otilia Pruett ALT [Catalytic activity/Vol] 35 U/L Normal 16-63 [facility] Comment on above: Performed By: #### C MP, LIPID #### [facility] [address] [place] [address] Dr. Otilia Pruett Anion gap [Moles/Vol] 10.9 mmol/L Normal [facility] Comment on above: Performed By: #### C MP, LIPID #### [facility] [address] [place] [address] Dr. Otilia Pruett AST [Catalytic activity/Vol] 27 U/L Normal 15-37 [facility] Comment on above: Performed By: #### C MP, LIPID #### [facility] [address] [place] [address] Dr. Otilia Pruett Bilirubin [Mass/Vol] 0.3 mg/dL Normal 0.2-1.0 [facility] Comment on above: Performed By: #### C MP, LIPID #### [facility] [address] [address] [address] Otilia Pruett Calcium [Mass/Vol] 8.8 mg/dL Normal 8.5-10.1 [facility] Comment on above: Performed By: #### C MP, LIPID #### [facility] [address] [address] [address] Oitlia Pruett Chloride [Moles/Vol] 103 mmol/L Normal 98-107 [facility] Comment on above: Performed By: #### C MP, LIPID #### [facility] [address] [place] [address] Dr. Otilia Pruett CO2 [Moles/Vol] 27.5 mmol/L Normal 21.0-32.0 [facility] Comment on above: Performed By: #### C MP, LIPID #### [facility] [address] [place] [address] Dr. Otilia Pruett Creatinine [Mass/Vol] 0.94 mg/dL Normal 0.70-1.30 [facility] Comment on above: Performed By: #### C MP, LIPID #### [facility] [address] [place] [address] Dr. Otilia Pruett EGFR-AF LIBYAN >60 Normal >=60 [facility] Comment on above: Performed By: #### C MP, LIPID #### [facility] [address] [place] [address] Dr. Otilia Pruett EGFR-NON AF LIBYAN >60 Normal >=60 [facility] Comment on above: Performed By: #### C MP, LIPID #### [facility] [address] [place] [address] Dr. Otilia Pruett Globulin (S) [Mass/Vol] 3.2 g/dL Normal [facility] Comment on above: Performed By: #### C MP, LIPID #### [facility] [address] [place] [address] Dr. Otilia Pruett Glucose [Mass/Vol] 156 mg/dL Critically high 74-106 T [facility] Comment on above: Performed By: #### C MP, LIPID #### [facility] [address] [place] [address] Dr. Otilia Pruett Potassium [Moles/Vol] 4.4 mmol/L Normal 3.5-5.1 [facility] Comment on above: Performed By: #### C MP, LIPID #### [facility] [address] [address] [address] Otilia Pruett Protein [Mass/Vol] 7.0 g/dL Normal 6.4-8.2 [facility] Comment on above: Performed By: #### C MP, LIPID #### [facility] [address] [address] [address] Otilia Pruett Sodium [Moles/Vol] 137 mmol/L Normal 136-145 [facility] Comment on above: Performed By: #### C MP, LIPID #### [facility] [address] [place] [address] Dr. Otilia Pruett Urea nitrogen [Mass/Vol] 19.0 mg/dL Critically high 7.0-18.0 [facility] Comment on above: Performed By: #### C MP, LIPID #### [facility] [address] [place] [address] Dr. Otilia Pruett Urea nitrogen/Creatinine [Mass ratio] 20.2 mg/mg Normal [facility] Comment on above: Performed By: #### C MP, LIPID #### [facility] [address] [place] [address] Dr. Otilia Pruett BASIC METABOLIC PANELon 10-03 Anion gap 3 molar conc 13 mmol/L Normal 6-18 [facility] Comment on above: Order Comment: CBN: YESCampus: MAINIs patient fasting? YES Performed By: #### L BMP, LGFRP ####[facility] [id number] [place] [address] Calcium mass conc 9.6 mg/dL Normal 8.6-10.3 [facility] Comment on above: Order Comment: CBN: YESCampus: MAINIs patient fasting? YES Performed By: #### L BMP, LGFRP ####[facility] [id number] [place] [address] Chloride molar conc 103 mmol/L Normal 98-107 [facility] Comment on above: Order Comment: CBN: YESCampus: MAINIs patient fasting? YES Performed By: #### L BMP, LGFRP ####[facility] [id number] [place] [address] CO2 molar conc 26 mmol/L Normal 21-32 [facility] Comment on above: Order Comment: CBN: YESCampus: MAINIs patient fasting? YES Performed By: #### L BMP, LGFRP ####[facility] [address] [place] [address] Creatinine mass conc 0.94 mg/dL Normal 0.5-1.3 [facility] Comment on above: Order Comment: CBN: YESCampus: MAINIs patient fasting? YES Performed By: #### L BMP, LGFRP ####[facility] [address] [place] [address] Glucose mass conc 241 mg/dL High 74-99 [facility] Comment on above: Order Comment: CBN: YESCampus: MAINIs patient fasting? YES Performed By: #### L BMP, LGFRP ####[facility] [id number] [place] [address] Potassium molar conc 4.5 mmol/L Normal 3.5-5.3 [facility] Comment on above: Order Comment: CBN: YESCampus: MAINIs patient fasting? YES Performed By: #### L BMP, LGFRP ####[facility] [address] [place] [address] Sodium molar conc 137 mmol/L Normal 136-145 [facility] Comment on above: Order Comment: CBN: YESCampus: MAINIs patient fasting? YES Performed By: #### L BMP, LGFRP ####[facility] [address] [place] [address] Urea nitrogen mass conc 15 mg/dL Normal 6-23 [facility] Comment on above: Order Comment: CBN: YESCampus: MAINIs patient fasting? YES Performed By: #### L BMP, LGFRP ####[facility] [address] [place] [address] CBC AUTOon 10-14-2018 Erythrocyte distribution width Auto Ratio (RBC) 12.1 % Normal 11.5-14.5 [facility] Comment on above: Order Comment: CBN: YESCampus: MAIN Performed By: #### L CBC ####[facility] [place] [address] Hematocrit Auto Volume Fraction (Bld) 38.6 % Low 39.0-55.0 [facility] Comment on above: Order Comment: CBN: YESCampus: MAIN Performed By: #### L CBC ####[address] [address] Hemoglobin mass conc (Bld) 13.7 g/dL Low 14.0-16.5 [facility] Comment on above: Order Comment: CBN: YESCampus: MAIN Performed By: #### L CBC ####[address] [address] MCH Auto Entitic mass (RBC) 31.2 pg Normal 25.4-34.6 [facility] Comment on above: Order Comment: CBN: YESCampus: MAIN Performed By: #### L CBC ####[address] [address] MCHC Auto mass conc (RBC) 35.5 g/dL Normal 30.0-36.0 [facility] Comment on above: Order Comment: CBN: YESCampus: MAIN Performed By: #### L CBC ####[address] [address] MCV Auto Entitic volume (RBC) 87.9 fL Normal 79.0-98.0 [facility] Comment on above: Order Comment: CBN: YESCampus: MAIN Performed By: #### L CBC ####[address] [address] Platelet mean volume Auto Entitic volume (Bld) 10.1 fL Normal 8.4-11.9 [facility] Comment on above: Order Comment: CBN: YESCampus: MAIN Performed By: #### L CBC ####[facility] [place] [address] Platelets Auto #/vol (Bld) 265 10*3/uL Normal 140-440 [facility] Comment on above: Order Comment: CBN: YESCampus: MAIN Performed By: #### L CBC ####[facility] [address] [place] [address] RBC Auto #/vol (Bld) 4.39 10*6/uL Normal 4.0-6.0 [facility] Comment on above: Order Comment: CBN: YESCampus: MAIN Performed By: #### L CBC ####[facility] [address] [place] [address] WBC Auto #/vol (Bld) 9.8 10*3/uL Normal 3.9-11.0 [facility] Comment on above: Order Comment: CBN: YESCampus: MAIN Performed By: #### L CBC ####[facility] [address] [place] [address] GLOMERULAR FILTRATION RATE E STon 10-14-2018 GFR/1.73 sq M predicted among non-blacks MDRD vol rate/area (S/P/Bld) mL/min/{1.73_m2} Normal > 60 [facility] Comment on above: Order Comment: CBN: YESCampus: MAINIs patient fasting? YES Performed By: #### L BMP, LGFRP ####[facility] [address]be[address] [place] [address] IF AMER > 90 Normal > 60 [facility] Comment on above: Order Comment: CBN: YESCampus: MAINIs patient fasting? YES Result Comment: Effe ctive 03/29/15:CKD-EPI equation / based on IDMS traceable creatinine.Continue to use the CREAT CLR-DOSE (Cockgroft-Gault)value for determining medication dose. Performed By: #### L BMP, LGFRP ####[facility] [address] [place] [address] GLUCOSE BLD STRIPon 10-14-20 18 Glucose mass conc 179 mg/dL High 65-110 [facility] Comment on above: Performed By: #### L POCGLUC ####[facility] [address] [place] [address] OPERATIVE REPORTon 8 OPERATIVE REPORT Name: MELINA LANTIGUA R: [id number]:1ST GOLD LETTERER:PREOP DIAGNOSIS: Syncope.POSTOP DIAGNOSIS: Syncope. Still with unknown etiology after EP study, tilt-table test, neurologic workup.OPERATION: Electrophysiologic study.OPERATIVE REPORT: Patient was brought to the EP Lab in the postabsorptivestate. Vitals were stable. Informed consent was obtained. The right groinwas prepared and draped in the usual manner. The right groin was infiltratedwith 2% Xylocaine. The femoral vein was captured 3 separate times using theSeldinger technique. Three separate wires were advanced. #2, #6, and #7-St Lucian dilators introducers were advanced over one of the guidewires at thattime. The dilators and the guidewires were removed. Two quadripolarcatheters were advanced in separate leads; one to the high right atrium, oneto the RV apex and later on to the RV outflow. The third catheter wassteerable by Yu advanced to the S position. Basic numbers were obtained.HV timing was 61 milliseconds, AH was 59 milliseconds, WY of 131 milliseconds,QRS duration of 102 milliseconds. Sinus node recovery time was done and thelongest pause was at 500 milliseconds. The sinus node recovery time was 950milliseconds, which is normal.Wenckebach cycle length was 305 milliseconds, which is normal. The AV nodeERP was 210 milliseconds. 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 VT study in the apex and the outflow at 600 millisecondsand 400 milliseconds was done. In the apex, the VA ERP was 220 milliseconds,in the 400 it was 200 millisecond. No inducible sustained monomorphic VT wasinduced. In the outflow at 600 milliseconds, VA ERP was 230 millisecond andat 400 it was 230 milliseconds. Again, the PES failed to inducing anysustained monomorphic VT. In the outflow, Isuprel was used up to 2 mcg. PESat 500, 400, and 350 milliseconds failed to inducing any sustainedtachycardia.In the RV apex, fast to slow protocol was used. Again, no inducible VT.Carotid massage was done prior to Isuprel infusion. No significant pauses [facility] HARINI [id number] [address] [place] [address] [id number]: Leonel Camilo ([place])OPERATIVE REPORTwere documented. At the termination of the test all catheters were removed.Pressure was applied to the right groin until hemostasis was secured. Patienttolerated the procedure well and was discharged from the EP Lab in astable condition. Syncope remains of unknown etiology. Recommendation is forimplantable loop. Leonel CHU M.D./[facility]/[id number]: 10/14/2018 11:46:26 cc: Saturnino Helms M.D.Fax: [phone] elena Chu M.D.Fax: [phone]/S: Leonel Chu ([place]),10/14/18 1356Electronically Signed [facility] [id number] [address] [place] [address] [id number]: Leonel Ovalles ([place]) REPORT Normal [facility] ECHOCARDIOGRAPHY REPORT (HL) on 09-11-2018 ECHOCARDIOGRAPHY REPORT (HL) JACQUIE [id number] 189.6M [id number] ASCULAR LABReferring: Saturnino Helms, ([place])Reading: Saturnino Helms MD __Transthoracic EchocardiogramECHOALL - ECHO COMPLETE WITH 2D M MODE DOP CLR (1)syncope: 150/90Chambers MMAo root diameter (MM) 3.1 cmAV cusp separation (MM) 1.8 cmChambers 2DIVSd (2D) 1.01 cmLVPWd (2D) 1.04 cmLVIDd (2D) 4.52 cmLVIDs (2D) 2.65 cmLA dimension 2D 3.7 cmVolumes/MassLA Area 2 CH 11.4 cm2LA Area 4 CH 11.1 cm2LA Volume Indexed 16.3 ml/l9Oevhvfvtc/Systolic FunctionMV E-wave Vmax 0.726 m/secMV deceleration time 201 msecMV A-wave Vmax 0.869 m/secLV septal e' Vmax 0.105 m/secLV lateral e' Vmax 0.102 m/secLV E:e' septal ratio 6.9 ratio S [facility] HARINI [id number] [address] [place] [address] [id number] 64Ar-Saturnino Courtney ([place]) MDECHOCARDIOGRAPHY REPORTLV E:e' lateral ratio 7.1 ratioAortic ValveAV Vmax 1.12 m/secAV peak gradient 5 mmHgLVOT diameter 2.2 cmLVOT Vmax 0.78 m/secLVOT peak gradient 2 mmHgAVA (continuity Vmax) 2.65 fv1Egvogtmai Ao 3.5 cmTricuspid ValveTR Vmax 2.17 m/secTR peak gradient 19 mmHgProcedure Info:The study quality is good. The exam was completed atLeft Ventricle:The left ventricular chamber size is normal. Global left ventricularwall motion and contractility are within normal limits. The estimatedejection fraction is 55-60 percent.Left Atrium:The left atrial chamber size is normal.Right Ventricle:The right ventricular cavity size is normal. The right ventricularglobal systolic function is normal.Right Atrium:The right atrial cavity size is normal.Aortic Valve:The aortic valve is trileaflet. Systolic excursion of the aortic valveis normal. There is no evidence of aortic regurgitation. There is noevidence of aortic stenosis. The peak instantaneous gradient of theaortic valve is 5 mmHg.Mitral Valve:The mitral valve leaflets appear normal. There is no evidence of mitralvalve prolapse. There is a trace of mitral regurgitation. There is noevidence of mitral stenosis.Tricuspid Valve:The tricuspid valve leaflets are normal. There is mild tricuspidregurgitation.P ulmonic Valve: [facility] HARINI [id number] [address] [place] [address] [id number] 64Saturnino Helms MD (Mubarak)ECHOCARDIOGRAPHY REPORTThe pulmonic valve appears normal in structure and function.Pericardium:The re is no pericardial effusion seen.Aorta:The aortic root appears normal.The estimated ejection fraction is 55-60 percent.The left atrial chamber size is normal.There is no evidence of aortic regurgitation.There is no evidence of aortic stenosis.There is a trace of mitral regurgitation.The tricuspid valve leaflets are normal.There is no pericardial effusion seen.Saturnino Helms MD09/11/2018 09:48:05 __[facility] JACQUIE [id number] [address] [place] [address] [id number] 64Enoc-Saturnino Courtney) MDECHOCARDIOGRAPHY REPORT Normal [facility] Vital Signs Date Time Vital Sign Value Performing Clinician Facility 05-23-2025 15:24-0400 Body height 172.72 cm Darryn Araya DO Work Phone: [facility] 05-23-2025 15:24-0400 Body mass index (BMI) [Ratio] 29.3 kg/m2 Darryn Thompsonburtonlara DO Work Phone: [facility] 05-23-2025 15:24-0400 Body weight 87.65 kg Darryn Araya DO Work Phone: [facility] 05-23-2025 15:24-0400 Diastolic blood pressure 90 mm[Hg] Darryn Araya DO Work Phone: [facility] 05-23-2025 15:24-0400 Heart rate 92 /min Darryn Araya DO Work Phone: [facility] 05-23-2025 15:24-0400 SaO2% (BldA) [Mass fraction] 96 % Darryn Araya DO Work Phone: [facility] 05-23-2025 15:24-0400 Systolic blood pressure 160 mm[Hg] Darryn Araya DO Work Phone: [facility] 04-20-2025 15:56-0400 Body height 172.72 cm Darryn Thompsonjeyson DO Work Phone: [facility] 04-20-2025 15:56-0400 Body mass index (BMI) [Ratio] 29.2 kg/m2 Darryn Araya DO Work Phone: [facility] 04-20-2025 15:56-0400 Body weight 87.14 kg Darryn Araya DO Work Phone: [facility] 04-20-2025 15:56-0400 Diastolic blood pressure 80 mm[Hg] Darryn Araya DO Work Phone: [facility] 04-20-2025 15:56-0400 Heart rate 82 /min Darryn Araya DO Work Phone: [facility] 04-20-2025 15:56-0400 SaO2% (BldA) [Mass fraction] 96 % Darryn Araya DO Work Phone: [facility] 04-20-2025 15:56-0400 Systolic blood pressure 130 mm[Hg] Darryn Araya DO Work Phone: [facility] 03-31-2025 14:47-0400 Body height 172.7 cm Mikael Araya DO Work Phone: [facility] 03-31-2025 14:47-0400 Body mass index (BMI) [Ratio] 29.35 kg/m2 Mikael Araya DO Work Phone: [facility] 03-31-2025 14:47-0400 Body temperature 98.8 [degF] Mikael Araya DO Work Phone: [facility] 03-31-2025 14:47-0400 Body weight 87.54 kg Mikael Araya DO Work Phone: [facility] 03-31-2025 14:47-0400 Diastolic blood pressure 96 mm[Hg] Mikael Araya DO Work Phone: [facility] 03-31-2025 14:47-0400 Heart rate 77 /min Mikael Araya DO Work Phone: [facility] 03-31-2025 14:47-0400 SaO2% (BldA) [Mass fraction] 96 % Mikael Araya DO Work Phone: [facility] 03-31-2025 14:47-0400 Systolic blood pressure 150 mm[Hg] Mikael Araya DO Work Phone: [facility] 12-30-2024 08:00-0500 Body height 172.7 cm Pacc 4 Work Phone: [facility] 12-30-2024 08:00-0500 Body mass index (BMI) [Ratio] 30.27 kg/m2 Pacc 4 Work Phone: [facility] 12-30-2024 08:00-0500 Body temperature 98.01 [degF] Pacc 4 Work Phone: [facility] 12-30-2024 08:00-0500 Body weight 90.3 kg Pacc 4 Work Phone: [facility] 12-30-2024 08:00-0500 Diastolic blood pressure 78 mm[Hg] Pacc 4 Work Phone: [facility] 12-30-2024 08:00-0500 Heart rate 69 /min Pacc 4 Work Phone: [facility] 12-30-2024 08:00-0500 Respiratory rate 16 /min Pacc 4 Work Phone: [facility] 12-30-2024 08:00-0500 SaO2% (BldA) [Mass fraction] 97 % Pacc 4 Work Phone: [facility] 12-30-2024 08:00-0500 Systolic blood pressure 152 mm[Hg] Pacc 4 Work Phone: [facility] 12-07-2024 10:49-0500 Body mass index (BMI) [Ratio] 29.16 kg/m2 Bernardino Dahlia DO Work Phone: [facility] 12-07-2024 10:49-0500 Body weight 87 kg Bernardino Dahlia DO Work Phone: [facility] 12-07-2024 10:49-0500 Diastolic blood pressure 64 mm[Hg] Bernardino Dahlia DO Work Phone: [facility] 12-07-2024 10:49-0500 Heart rate 75 /min Bernardion Villagomez DO Work Phone: [facility] 12-07-2024 10:49-0500 Systolic blood pressure 153 mm[Hg] Bernardino Villagomez DO Work Phone: [facility] 09-03-2024 12:34-0400 Body height 172.7 cm Mikael Araya DO Work Phone: [facility] 09-03-2024 12:34-0400 Body mass index (BMI) [Ratio] 31.17 kg/m2 Mikael Araya DO Work Phone: [facility] 09-03-2024 12:34-0400 Body temperature 98.01 [degF] Mikael Araya DO Work Phone: [facility] 09-03-2024 12:34-0400 Body weight 92.99 kg Mikael Araya DO Work Phone: [facility] 09-03-2024 12:34-0400 Diastolic blood pressure 78 mm[Hg] Mikael Araya DO Work Phone: [facility] 09-03-2024 12:34-0400 Heart rate 83 /min Mikael Araya DO Work Phone: [facility] 09-03-2024 12:34-0400 SaO2% (BldA) [Mass fraction] 97 % Mikael Araya DO Work Phone: [facility] 09-03-2024 12:34-0400 Systolic blood pressure 148 mm[Hg] Mikael Araya DO Work Phone: [facility] 08-20-2024 09:31-0400 Body height 172.7 cm Maliha Berg MD Work Phone: [facility] 08-20-2024 09:31-0400 Body mass index (BMI) [Ratio] 30.41 kg/m2 Maliha Berg MD Work Phone: [facility] 08-20-2024 09:31-0400 Body temperature 97 [degF] Maliha Berg MD Work Phone: [facility] 08-20-2024 09:31-0400 Body weight 90.72 kg Maliha Berg MD Work Phone: [facility] 08-20-2024 09:31-0400 SaO2% (BldA) [Mass fraction] 97 % Maliha Berg MD Work Phone: [facility] 08-11-2024 12:32-0400 Body height 172.7 cm Mikael Araya DO Work Phone: [facility] 08-11-2024 12:32-0400 Body mass index (BMI) [Ratio] 30.41 kg/m2 Mikael Araya DO Work Phone: [facility] 08-11-2024 12:32-0400 Body temperature 96.91 [degF] Mikael Araya DO Work Phone: [facility] 08-11-2024 12:32-0400 Body weight 90.72 kg Mikael Araya DO Work Phone: [facility] 08-11-2024 12:32-0400 Diastolic blood pressure 82 mm[Hg] Mikael Riccian DO Work Phone: [facility] 08-11-2024 12:32-0400 Heart rate 79 /min Mikael Riccian DO Work Phone: [facility] 08-11-2024 12:32-0400 SaO2% (BldA) [Mass fraction] 97 % Mikael Araya DO Work Phone: [facility] 08-11-2024 12:32-0400 Systolic blood pressure 138 mm[Hg] Mikael Riccian DO Work Phone: [facility] 07-08-2024 15:14-0400 Body mass index (BMI) [Ratio] 30.24 kg/m2 Glo Sandra APRN.CNP Work Phone: [facility] 07-08-2024 15:14-0400 Body weight 90.2 kg Glo Waqas DAY HABILITATION SUPERVISOR.ROD WELDER Work Phone: [facility] 07-08-2024 15:14-0400 Diastolic blood pressure 82 mm[Hg] Glo Waqas DAY HABILITATION SUPERVISOR.ROD WELDER Work Phone: [facility] 07-08-2024 15:14-0400 Heart rate 72 /min Glo Waqas DAY HABILITATION SUPERVISOR.ROD WELDER Work Phone: [facility] 07-08-2024 15:14-0400 Systolic blood pressure 151 mm[Hg] Glo Waqas DAY HABILITATION SUPERVISOR.ROD WELDER Work Phone: [facility] 06-07-2024 10:03-0400 Body height 172.7 cm Migdalia Tom DO Work Phone: [facility] 06-07-2024 10:03-0400 Body mass index (BMI) [Ratio] 29.65 kg/m2 Migdalia Tom DO Work Phone: [facility] 06-07-2024 10:03-0400 Body weight 88.45 kg Migdalia Tom DO Work Phone: [facility] Comment on above: self report 03-24-2024 15:37-0400 Body mass index (BMI) [Ratio] 29.8 kg/m2 Parul Rico DAY HABILITATION SUPERVISOR.ROD WELDER Work Phone: [facility] 03-24-2024 15:37-0400 Body weight 88.91 kg Parul Rico DAY HABILITATION SUPERVISOR.ROD WELDER Work Phone: [facility] 02-19-2024 07:53-0400 Body height 172.7 cm Parul Rico DAY HABILITATION SUPERVISOR.ROD WELDER Work Phone: [facility] 02-19-2024 07:53-0400 Body weight 89 kg Parul Rico DAY HABILITATION SUPERVISOR.ROD WELDER Work Phone: [facility] 12-31-2023 11:15-0500 Body weight 90.9 kg Bernardino Villagomez DO Work Phone: [facility] 12-31-2023 11:15-0500 Diastolic blood pressure 79 mm[Hg] Bernardino Dahlia DO Work Phone: [facility] 12-31-2023 11:15-0500 Heart rate 77 /min Bernardino Dahlia DO Work Phone: [facility] 12-31-2023 11:15-0500 Systolic blood pressure 147 mm[Hg] Bernardino Dahlia DO Work Phone: [facility] 06-26-2023 12:10-0400 Blood Pressure Location Vidhya Timmis [facility] 06-26-2023 12:10-0400 Body temperature 98.06 [degF] Vidhya Timmis [facility] 06-26-2023 12:10-0400 Diastolic blood pressure 76 mm[Hg] Vidhya Timmis [facility] 06-26-2023 12:10-0400 Heart rate 102 /min Vidhya Timmis [facility] 06-26-2023 12:10-0400 Respiratory rate 16 /min Vidhya Timmis [facility] 06-26-2023 12:10-0400 SaO2% (BldA) [Mass fraction] 96 % Vidhya Timmis [facility] 06-26-2023 12:10-0400 Systolic blood pressure 145 mm[Hg] Vidhya Timmis [facility] 06-26-2023 11:13-0400 Heart rate 98 /min Vidhya Timmis [facility] 06-26-2023 11:13-0400 SaO2% (BldA) [Mass fraction] 95 % Vidhya Timmis [facility] 06-26-2023 11:11-0400 Respiratory rate 20 /min Vidhya Timmis [facility] 06-26-2023 11:09-0400 Body temperature 97.34 [degF] Vidhya Timmis [facility] 06-26-2023 11:09-0400 Blood Pressure Location Vidhya Timmis [facility] 06-26-2023 11:09-0400 Diastolic blood pressure 79 mm[Hg] Vidhya Timmis [facility] 06-26-2023 11:09-0400 Mean blood pressure 100 mm[Hg] Vidhya Timmis [facility] 06-26-2023 11:09-0400 Systolic blood pressure 144 mm[Hg] Vidhya Timmis [facility] 06-26-2023 11:01-0400 Body temperature 97.88 [degF] Vidhya Timmis [facility] 06-26-2023 11:01-0400 Diastolic blood pressure 67 mm[Hg] Vidhya Timmis [facility] 06-26-2023 11:01-0400 Heart rate 98 /min Vidhya Timmis [facility] 06-26-2023 11:01-0400 Respiratory rate 15 /min Vidhya Timmis [facility] 06-26-2023 11:01-0400 SaO2% (BldA) [Mass fraction] 95 % Vidhya Timmis [facility] 06-26-2023 11:01-0400 Systolic blood pressure 135 mm[Hg] Vidhya Timmis [facility] 06-26-2023 10:51-0400 Respiratory rate 16 /min Vidhya Timmis [facility] 06-26-2023 10:50-0400 Respiratory rate 14 /min Vidhya Timmis [facility] 06-26-2023 10:45-0400 FIO2 40 % Vidhya Timmis [facility] 06-26-2023 10:40-0400 FIO2 40 % Vidhya Timmis [facility] 06-26-2023 10:36-0400 Body temperature 97.88 [degF] Vidhya Timmis [facility] 06-26-2023 10:36-0400 FIO2 40 % Vidhya Timmis [facility] 06-26-2023 10:36-0400 Respiratory rate 14 /min Vidhya Timmis [facility] 06-26-2023 07:00-0400 Heart rate 78 /min Vidhya Timmis [facility] 06-26-2023 07:00-0400 Mean blood pressure 98 mm[Hg] Vidhya Timmis [facility] 06-26-2023 06:58-0400 Body temperature 97.52 [degF] Vidhya Timmis [facility] 06-26-2023 06:57-0400 Mean blood pressure 101 mm[Hg] Vidhya Timmis [facility] 06-05-2023 15:28-0400 Diastolic blood pressure 69 mm[Hg] Vidhya Timmis [facility] 06-05-2023 15:28-0400 Heart rate 88 /min Vidhya Timmis [facility] 06-05-2023 15:28-0400 Mean blood pressure 95 mm[Hg] Vidhya Timmis [facility] 06-05-2023 15:28-0400 Systolic blood pressure 146 mm[Hg] Vidhya Timmis [facility] 06-05-2023 15:28-0400 Heart rate 86 /min Vidhya Timmis [facility] 06-05-2023 15:28-0400 Respiratory rate 18 /min Vidhya Timmis [facility] 06-05-2023 15:28-0400 SaO2% (BldA) [Mass fraction] 96 % Vidhya Timmis [facility] 06-05-2023 15:27-0400 Diastolic blood pressure 73 mm[Hg] Vidhya Timmis [facility] 06-05-2023 15:27-0400 Mean blood pressure 85 mm[Hg] Vidhya Timmis [facility] 06-05-2023 15:27-0400 Systolic blood pressure 111 mm[Hg] Vidhya Timmis [facility] 04-17-2023 10:15-0400 Body height 172.72 cm Jodi Nolan Other [facility] [place] Other 04-17-2023 10:15-0400 Body mass index (BMI) [Ratio] 28.43 kg/m2 Jodi Nolan Other [employer] Other 04-17-2023 10:15-0400 Body weight 84.82 kg Jodi Nolan Other [employer] Other 01-01-2023 15:30-0500 Body height 172.72 cm Dara Elizabeth Other [employer] Other 01-01-2023 15:30-0500 Body mass index (BMI) [Ratio] 29.65 kg/m2 Dara Elizabeth Other [facility] [place] Other 01-01-2023 15:30-0500 Body weight 88.45 kg Dara Elizabeth Other [facility] [place] Other 12-18-2022 15:28-0500 Body weight 88.91 kg Bernardino Dahlia DO Work Phone: [facility] 12-18-2022 15:28-0500 Diastolic blood pressure 85 mm[Hg] Bernardino Dahlia DO Work Phone: [facility] 12-18-2022 15:28-0500 Heart rate 102 /min Bernardino Dahlia DO Work Phone: [facility] 12-18-2022 15:28-0500 Systolic blood pressure 129 mm[Hg] Bernardino Dahlia DO Work Phone: [facility] 06-06-2022 15:39-0400 Body weight 88 kg Glo Waqas DAY HABILITATION SUPERVISOR.ROD WELDER Work Phone: [facility] 06-06-2022 15:39-0400 Diastolic blood pressure 82 mm[Hg] Glo Waqas DAY HABILITATION SUPERVISOR.ROD WELDER Work Phone: [facility] 06-06-2022 15:39-0400 Heart rate 76 /min Glo Waqas DAY HABILITATION SUPERVISOR.ROD WELDER Work Phone: [facility] 06-06-2022 15:39-0400 Systolic blood pressure 130 mm[Hg] Glo Waqas DAY HABILITATION SUPERVISOR.ROD WELDER Work Phone: [facility] 04-16-2022 18:21-0400 Body height 172.72 cm DO Darryn Araya Work Phone: [facility] 04-16-2022 18:21-0400 Body mass index (BMI) [Ratio] 29.5 kg/m2 DO Darryn Araya Work Phone: [facility] 04-16-2022 18:21-0400 Body temperature 98.6 [degF] DO Darryn Araya Work Phone: [facility] 04-16-2022 18:21-0400 Body weight 88.25 kg DO Darryn Araya Work Phone: [facility] 04-16-2022 18:21-0400 Diastolic blood pressure 73 mm[Hg] DO Darryn Araya Work Phone: [facility] 04-16-2022 18:21-0400 Heart rate 99 /min DO Darryn Araya Work Phone: [facility] 04-16-2022 18:21-0400 Respiratory rate 17 /min DO Darryn Araya Work Phone: [facility] 04-16-2022 18:21-0400 SaO2% (BldA) [Mass fraction] 96 % DO Darryn Araya Work Phone: [facility] 04-16-2022 18:21-0400 Systolic blood pressure 136 mm[Hg] DO Darryn Araya Work Phone: [facility] 10-23-2021 14:15-0500 Body weight 89 kg Tom Arikramírez Other [employer] Other Encounters Encounter Date Encounter Type Care Provider Facility Start: 05-23-2025 End: 05-23-2025 ambulatory Darryn Araya DO Work Phone: [facility] Work Phone: Start: 05-23-2025 End: 05-23-2025 Patient encounter procedure Rene Castillo MD -[facility] Work Phone: Start: 05-16-2025 End: 05-16-2025 Telephone encounter Maliha Berg MD Work Phone: Neurology Comment on above: Results - Mri Start: 05-16-2025 End: 05-16-2025 Patient encounter procedure Rene Castillo MD -[facility] Work Phone: Start: 05-16-2025 End: 05-16-2025 ambulatory Darryn Araya DO Work Phone: [facility] Work Phone: Start: 05-05-2025 End: 05-05-2025 Subsequent hospital visit by physician [facility] Work Phone: [facility] Rad[facility] General Comment on above: 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 [G89.29, M54.42] Start: 05-05-2025 End: 05-05-2025 Office outpatient visit 15 minutes Maliha Berg MD Work Phone: [facility] Comment on above: 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 (Primary Dx) Start: 05-05-2025 End: 05-05-2025 ambulatory MALIHA BERG Facility:[facility] Start: 04-30-2025 End: 05-02-2025 Refill Mikael Araya DO Work Phone: [facility] 230 Comment on above: Lumbosacral radiculo clemencia at L5; Abnormal MRI, lumbar spine Start: 04-27-2025 End: 04-27-2025 ambulatory Chery Land PT Work Phone: [facility] Comment on above: Chronic midline low back pain without sciatica (Primary Dx) Start: 04-25-2025 End: 04-25-2025 Refill Mikael Araya DO Work Phone: [facility] 230 Comment on above: Lumbosacral radiculo clemencia at L5; Abnormal MRI, lumbar spine Start: 04-20-2025 End: 04-20-2025 Patient encounter procedure Rene Castillo MD -[facility] Work Phone: Start: 04-16-2025 End: 04-18-2025 Refill Mikael Araya DO Work Phone: [facility] 230 Comment on above: Lumbosacral radiculo clemencia at L5; Abnormal MRI, lumbar spine Sciatica of left griffin e; Pain Start: 04-11-2025 End: 04-11-2025 Refill Mikael A[facility]a DO [facility]: [facility] 230 Comment on above: Lumbosacral radiculo clemencia at L5; Abnormal MRI, lumbar spine Chronic midline low back pain without sciatica (Primary Dx) Start: 04-09-2025 End: 04-11-2025 Refill Mikael Araya DO [facility] 230 Comment on above: Neuropathy; Spinal stenosis, unspecified spinal region; Sciatica of left side Start: 04-05-2025 End: 04-05-2025 Refill Mikael rAaya DO Work Phone: [facility] 230 Comment on above: Lumbosacral radiculo clemencia at L5; Abnormal MRI, lumbar spine Start: 04-01-2025 End: 04-04-2025 Telephone encounter Maliha Berg MD Work Phone: Neurology Comment on above: Results Start: 03-31-2025 End: 03-31-2025 Office outpatient visit 25 minutes Mikael Araya DO [facility] Phone: [facility] 230 Comment on above: Neuropathy (Primary Dx); Primary hypertension (CMS/HCC); Lumbosacral radiculopathy at L5; Type 1 diabetes mellitus without complication; Abnormal MRI, lumbar spine; Acquired hypothyroidism (CMS/HCC) Start: 03-31-2025 End: 03-31-2025 ambulatory MIKAEL ARAYA Not Available Start: 03-31-2025 End: 03-31-2025 Bamboo flowsheet Mikael Araya DO Work Phone: [facility] 230 Start: 03-31-2025 End: 03-31-2025 Bamboo flowsheet Mikael Araya DO Work Phone: [facility] 230 Start: 03-16-2025 End: 03-16-2025 ambulatory Damien Reeves ORNAMENTAL IRONWORKING SUPERVISOR Work Phone: [facility] Comment on above: Chronic midline low back pain without sciatica (Primary Dx); Chronic bilateral low back pain with left-sided sciatica Start: 03-09-2025 End: 03-09-2025 ambulatory Damien Reeves ORNAMENTAL IRONWORKING SUPERVISOR Work Phone: [facility] Comment on above: Chronic midline low back pain without sciatica (Primary Dx); Chronic bilateral low back pain with left-sided sciatica Start: 03-07-2025 End: 04-06-2025 Telephone encounter Maliha Berg MD Work Phone: Neurology Comment on above: Medication Request Start: 03-01-2025 End: 03-01-2025 ambulatory Chery Land PT Work Phone: [facility] Comment on above: Chronic midline low back pain without sciatica (Primary Dx); Chronic bilateral low back pain with left-sided sciatica Start: 02-14-2025 End: 02-14-2025 Office outpatient visit 25 minutes Jeaneth Shi MD Work Phone: [facility] Comment on above: 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 (CMS/HCC) (Primary Dx) Start: 02-14-2025 End: 02-14-2025 ambulatory JEANETH SHI Not Available Start: 02-03-2025 End: 02-03-2025 Patient encounter procedure Maliha Berg MD Work Phone: [facility] Comment on above: 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 (Primary Dx) Start: 02-03-2025 End: 02-03-2025 ambulatory MALIHA BERG Facility:[facility] Start: 01-17-2025 End: 02-16-2025 Telephone encounter Maliha Berg MD Work Phone: Neurosurgery Comment on above: Patient Question; Me dication Question Start: 01-15-2025 End: 01-17-2025 Refill Corona Thrasher MD Work Phone: [facility] Comment on above: Refill Request Start: 01-14-2025 End: 01-14-2025 Telephone encounter Maliha Berg MD Work Phone: Neurology Comment on above: Updated Fax Start: 01-13-2025 End: 01-14-2025 Telephone encounter Maliha Berg MD Work Phone: Neurology Comment on above: Letter Start: 01-12-2025 End: 01-12-2025 ambulatory MALIHA BERG Facility:[facility] Start: 01-05-2025 End: 01-05-2025 ambulatory MIKAEL ARAYA Facility:[facility] Start: 12-31-2024 End: 03-02-2025 Follow-up encounter Glo Sandra APRN.CNP Work Phone: Endocrinology Start: 12-30-2024 End: 12-30-2024 Admission to [place] [id number] Work Phone: Pre Anesthesia Start: 12-30-2024 End: 12-30-2024 ambulatory PRABHA GONZALEZ Facility:[facility] Start: 12-30-2024 End: 12-30-2024 Anesthesia consultation [facility] Work Phone: Pre Anesthesia Comment on above: Pre-op evaluation (P rimary Dx); Mixed hyperlipidemia; Type 1 diabetes mellitus with other specified complication (HCC); Primary hypertension; Acquired hypothyroidism; Moderate asthma without complication, unspecified whether persistent Start: 12-30-2024 Encounter for other preprocedural examination MALIHA BER[facility] Start: 12-30-2024 End: 12-30-2024 Preprocedural examination done [facility] Work Phone: [facility] Start: 12-28-2024 End: 12-28-2024 Admission to same day surgery center Maliha Berg MD Work Phone: Neurosurgery Start: 12-28-2024 End: 12-28-2024 ambulatory Maliha Berg MD Work Phone: Neurosurgery Start: 12-28-2024 End: 12-28-2024 Preprocedural examination done Maliha Berg MD Work Phone: [facility] Start: 12-28-2024 End: 12-28-2024 Refill Mikael Araya DO Work Phone: [facility] 230 Comment on above: Sciatica of left griffin e; Pain Start: 12-25-2024 End: 12-27-2024 Refill Mikael Araya DO Work Phone: [facility] 230 Comment on above: Lumbosacral radiculo clemencia at L5 Start: 12-23-2024 End: 12-23-2024 ambulatory MALIHA BERG Facility:[facility] Start: 12-23-2024 End: 12-23-2024 Office outpatient visit 15 minutes Maliha Berg MD Work Phone: [facility] Comment on above: Intervertebral disc disorder with radiculopathy of lumbar region (Primary Dx) Start: 12-09-2024 End: 12-09-2024 Telephone encounter Bernardino Villagomez DO Work Phone: Endocrinology Comment on above: Lab Orders (Mailed t o patient) Start: 12-08-2024 End: 12-08-2024 Bamjarocho Jordan DO Work Phone: [facility] Start: 12-08-2024 End: 12-08-2024 Bamjarocho Jordan DO Work Phone: [facility] Start: 12-08-2024 End: 12-08-2024 Office outpatient visit 25 minutes Jr. Mikael Jordan DO Work Phone: [facility] Comment on above: Acute pain of left k nee Start: 12-08-2024 End: 12-08-2024 ambulatory MIKAEL GARZA Not Available Start: 12-07-2024 End: 12-07-2024 Telephone encounter Bernardino Villagomez DO Work Phone: Endocrinology Comment on above: [employer] Up grade (Patient still under warranty with 770G) Did not receive bloo d work orders for next 6 months appointment with Glo Sandra at today's appointment with Dr. Villagomez Results Start: 12-07-2024 End: 12-07-2024 ambulatory Bernardino Maria Elena Villagomez DO Work Phone: Endocrinology Start: 12-07-2024 End: 12-07-2024 Patient encounter procedure Bernardino Villagomez DO Work Phone: Endocrinology Comment on above: Diabetes mellitus ty pe 1, controlled, insulin dependent (HCC) (Primary Dx); Insulin pump status; Acquired hypothyroidism Start: 11-27-2024 End: 2024 Refill Mikael Araya DO Work Phone: [facility] 022 Comment on above: Lumbosacral radiculo clemencia at L5; Spinal stenosis, unspecified spinal region Start: 11-24-2024 End: 11-24-2024 Clinisync Result Encounter Generic External Data Provider [facility] External Department Unsolicited Start: 11-24-2024 End: 11-24-2024 Clinisync Result Encounter Generic External Data Provider [facility] External Department Unsolicited Start: 10-31-2024 End: 11-04-2024 Refill Carmen Apodaca MD Work Phone: [facility] [place] Comment on above: Refill Request Start: 10-24-2024 End: 10-25-2024 Refill Mikael Araay DO Work Phone: [facility] 230 Comment on above: Sciatica of left griffin e; Pain; Spinal stenosis, unspecified spinal region Start: 10-07-2024 End: 10-07-2024 Refill Mikael Araya DO Work Phone: [facility] 230 Comment on above: Neuropathy; Spinal stenosis, unspecified spinal region; Sciatica of left side Sciatica of left griffin e; Pain Start: 10-07-2024 End: 10-07-2024 Refill Marcello Gil LPN Work Phone: [facility] 230 Comment on above: Primary hypertension (CMS/HCC); Neuropathy; Spinal stenosis, unspecified spinal region; Sciatica of left side Start: 10-05-2024 End: 10-05-2024 Telephone encounter Migdalia Ureña DO Work Phone: [facility] Comment on above: Follow Up Phone Call Start: 09-28-2024 End: 09-28-2024 ambulatory MIGDALIA UREÑA Facility:[facility] Start: 09-17-2024 End: 09-17-2024 Refill Bernardino L Dahlia DO Work Phone: Endocrinology Comment on above: Refill Request Start: 09-09-2024 End: 09-09-2024 Orders Only Migdalia Ureña DO Work Phone: [facility] Comment on above: Radiculopathy, lumba r region (Primary Dx); Spinal stenosis of lumbar region, unspecified whether neurogenic claudication present Start: 09-03-2024 End: 09-03-2024 Bamboo flowsheet Mikael Araya DO Work Phone: [facility] 230 Start: 09-03-2024 End: 09-03-2024 Bamboo flowsheet Mikael Wallace Donnajeyson DO Work Phone: [facility] 230 Start: 09-03-2024 End: 09-03-2024 Office outpatient visit 25 minutes Mikael Araya DO Work Phone: [facility] 230 Comment on above: Lumbosacral radiculo clemencia at L5 (Primary Dx); Primary hypertension (CMS/HCC); Neuropathy; Type 1 diabetes mellitus without complication (CMS/HCC); Spinal stenosis, unspecified spinal region; Sciatica of left side; Pain; Left leg pain; Edema, unspecified type Start: 09-03-2024 End: 09-03-2024 ambulatory MIKAEL ARAYA Not Available Start: 08-24-2024 End: 08-24-2024 ambulatory MIKAEL ARAYA Not Available Start: 08-20-2024 End: 08-20-2024 Patient encounter procedure Maliha Berg MD Work Phone: Neurosurgery Comment on above: Radiculopathy of lum bar region; Spinal stenosis of lumbar region, unspecified whether neurogenic claudication present Start: 08-20-2024 End: 08-20-2024 ambulatory SOLOMONDENG MORENA Facility:[facility] Start: 08-17-2024 End: 08-17-2024 ambulatory MIKAEL ARAYA Not Available Start: 08-11-2024 End: 08-11-2024 Bamboo flowsheet Mikael Araya DO Work Phone: [facility] Start: 08-11-2024 End: 08-11-2024 Bamboo flowsheet Mikael Araya DO Work Phone: [facility] Start: 08-11-2024 End: 08-12-2024 Orders Only Mikael Araya DO Work Phone: [facility] External Department Unsolicited Start: 08-11-2024 End: 08-11-2024 Office outpatient visit 25 minutes Mikael Aarya DO Work Phone: [facility] 230 Comment on above: Lumbosacral radiculo clemencia at L5 (Primary Dx); Neuropathy; Type 1 diabetes mellitus without complication (CMS/HCC); Sciatica of left side; Pain; Flank pain; Background diabetic retinopathy (CMS/HCC); Moderate asthma with exacerbation, unspecified whether persistent (CMS/HCC) Start: 08-11-2024 End: 08-11-2024 ambulatory MIKAEL ARAYA Not Available Start: 07-20-2024 End: 07-21-2024 ambulatory Migdalia Ureña DO Work Phone: [facility] Start: 07-20-2024 End: 07-21-2024 Patient encounter procedure Migdalia Ureña DO Work Phone: [facility] Comment on above: Next step after no r elief from epidural steroid injection Start: 07-16-2024 End: 07-16-2024 Telephone encounter Bernardino Villagomez DO Work Phone: Endocrinology Comment on above: [employer] ([id number]) Start: 07-13-2024 End: 07-13-2024 Telephone encounter Migdalia Ureña DO Work Phone: [facility] Comment on above: continued back pain Start: 07-08-2024 End: 07-08-2024 ambulatory GLO SANDRA Facility:[facility] Start: 07-08-2024 End: 07-08-2024 Patient encounter procedure Glo Sandra TORY Work Phone: Endocrinology Comment on above: Diabetes mellitus ty pe 1, controlled, insulin dependent (HCC) (Primary Dx); Mixed hyperlipidemia; Acquired hypothyroidism Start: 07-01-2024 End: 07-01-2024 Telephone encounter Migdalia Ureña DO Work Phone: [facility] Comment on above: Follow Up Phone Call Start: 06-29-2024 End: 06-29-2024 Postop follow up visit related to original px Bucky Pitt MD Work Phone: [facility] Comment on above: Abnormal MRI, lumbar spine (Primary Dx); Colon cancer screening Start: 06-29-2024 End: 06-29-2024 ambulatory BUCKY PITT V Not Available Start: 06-29-2024 End: 06-29-2024 ambulatory MIGDALIA UREÑA Facility:[facility] Start: 06-25-2024 End: 06-25-2024 Patient encounter procedure DO Darryn Araya Work Phone: [facility] Work Phone: Start: 06-25-2024 End: 06-25-2024 ambulatory DO Darryn Araya Work Phone: [facility] Work Phone: Start: 06-14-2024 End: 06-14-2024 ambulatory BUCKY PITT V Not Available Start: 06-09-2024 End: 06-09-2024 ambulatory MIKAEL ARAYA Not Available Start: 06-07-2024 Telephone encounter Migdalia Ureña DO Work Phone: [facility] Comment on above: procedure instructio ns Spinal stenosis of l umbar region, unspecified whether neurogenic claudication present (Primary Dx); Lumbar radiculopathy, chronic Start: 06-07-2024 End: 06-07-2024 ambulatory MIGDALIA UREÑA Facility:[facility] Start: 06-07-2024 End: 06-07-2024 Patient encounter procedure Migdalia Ureña DO Work Phone: [facility] Comment on above: Spinal stenosis of l umbar region, unspecified whether neurogenic claudication present (Primary Dx); Lumbar radiculopathy, chronic Start: 06-02-2024 End: 06-02-2024 ambulatory MIKAEL ARAYA Not Available Start: 05-24-2024 End: 05-24-2024 ambulatory KATEY ANNE Not Available Start: 05-18-2024 End: 05-18-2024 Patient encounter procedure Blanca Martinez MD Work Phone: [facility] [place] Comment on above: Granuloma annulare ( Primary Dx) Start: 05-17-2024 End: 05-17-2024 ambulatory KATEY ANNE Not Available Start: 05-07-2024 End: 05-07-2024 ambulatory MIKAEL ARAYA Not Available Start: 04-29-2024 End: 04-29-2024 ambulatory MIKAEL ARAYA Not Available Start: 04-06-2024 Refill Bernardino Villagomez DO Work Phone: Endocrinology Comment on above: Refill Request Start: 03-25-2024 End: 03-25-2024 ambulatory DO Darryn Prado Donnajeyson Work Phone: [facility] Work Phone: Start: 03-25-2024 End: 03-25-2024 Patient encounter procedure DO Darryn Thompsonburtonlara Work Phone: [facility]-XRay [facility] Work Phone: Start: 03-24-2024 End: 03-24-2024 Patient encounter procedure Parul Rico DAY HABILITATION SUPERVISOR.ROD WELDER Work Phone: [facility] Comment on above: 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 (Primary Dx); Radiculopathy of lumbar region Start: 03-24-2024 Telephone encounter Parul frost DAY HABILITATION SUPERVISOR.ROD WELDER Work Phone: Spine Medicine Comment on above: Patient Update Start: 03-19-2024 End: 03-19-2024 ambulatory DO Darryn Araya Work Phone: [facility] Work Phone: Start: 03-19-2024 End: 03-19-2024 Discharged Recurring DO Darryn Araya Work Phone: [facility]-Physical Therapy [place] Start: 03-19-2024 Registered Recurring DO Darryn Araya Work Phone: [facility]-Physical Therapy [place] Start: 03-18-2024 Telephone encounter Parul frost DAY HABILITATION SUPERVISOR.ROD WELDER Work Phone: [facility] Comment on above: Patient Question Start: 03-17-2024 End: 03-17-2024 Patient encounter procedure Carmen Apodaca MD Work Phone: [facility] [place] Comment on above: Granuloma annulare ( Primary Dx) Start: 02-19-2024 Telephone encounter Patricia mcgovern DAY HABILITATION SUPERVISOR.ROD WELDER Work Phone: [facility] [place] Comment on above: Results Start: 02-19-2024 End: 02-19-2024 Patient encounter procedure Parul Rico DAY HABILITATION SUPERVISOR.ROD WELDER Work Phone: [facility] Comment on above: Bilateral low back p ain with left-sided sciatica, unspecified chronicity (Primary Dx) Start: 02-16-2024 End: 02-16-2024 Patient encounter procedure Patricia Mills DAY HABILITATION SUPERVISOR.ROD WELDER Work Phone: [facility] [place] Comment on above: Rash and nonspecific skin eruption (Primary Dx) Start: 02-05-2024 Telephone encounter Migdalia Ureña DO Work Phone: [facility] Start: 12-31-2023 End: 12-31-2023 Patient encounter procedure Bernardino Villagomez DO Work Phone: Endocrinology Comment on above: Plaque psoriasis (Pr imary Dx); Adult onset hypothyroidism; Diabetes mellitus type 1, controlled, insulin dependent (HCC); Insulin pump status Start: 12-19-2023 Telephone encounter Bernardino villegas DO Work Phone: Endocrinology Comment on above: Annabelle PARRA [employer] Supplies (A4230 infusion sets/[id number] syringe w/needle) Start: 12-06-2023 Clinisync Result Encounter Generic External Data Provider [facility] External Department Unsolicited Start: 12-06-2023 Clinisync Result Encounter Generic External Data Provider [facility] External Department Unsolicited Start: 09-23-2023 Refill Bernardino Begum Dahlia DO Work Phone: Endocrinology Comment on above: Refill Request Start: 08-19-2023 Telephone encounter Bernardino Begum Doc rst DO Work Phone: Endocrinology Comment on above: Annabelle FALCONO Medical Supplies ([id number]) Start: 06-26-2023 End: 06-26-2023 Admission to same day surgery center Vidhya Maryuri Cueto [facility] Start: 06-05-2023 End: 06-05-2023 Patient encounter procedure Vidhya Cueto [facility] Start: 04-17-2023 Office outpatient vi sit 15 minutes [facility] Start: 04-17-2023 End: 04-17-2023 ambulatory DO Darryn Thompsonburtonlara Work Phone: [facility] Work Phone: Start: 04-17-2023 End: 04-17-2023 Patient encounter procedure DO Darryn Araya Work Phone: [facility] Start: 03-10-2023 Refill Bernardino Nagelst DO Work Phone: [facility] [place] Comment on above: Refill Request Start: 03-04-2023 Telephone encounter Bernardino Begum Doc rst DO Work Phone: Endocrinology Comment on above: Approval of Medical Services (Glucose monitoring system/[id number]) Start: 01-29-2023 End: 01-29-2023 ambulatory Dara Elizabeth Other [employer] Other Start: 01-29-2023 Office outpatient vi sit 15 minutes Dara Elizabeth [facility] Start: 01-01-2023 End: 01-01-2023 ambulatory Dara Elizabeth Other [employer] Other Start: 01-01-2023 Office outpatient ne w 45 minutes Darabalta Elizabeth [facility] Start: 12-18-2022 End: 12-18-2022 Patient encounter procedure Bernardino Villagomez DO Work Phone: Endocrinology Comment on above: Diabetes mellitus ty pe 1, controlled, insulin dependent (HCC) (Primary Dx); Insulin pump status Start: 11-16-2022 End: 11-17-[address] DOCTOR COOK Facility:[facility] Start: 11-07-2022 Telephone encounter Bernardino Roach [place] DO Work Phone: Endocrinology Comment on above: [employer] CMN (Offic e notes/pump download) Start: 11-03-2022 End: 11-08-[address] Cristy ARAYA Facility:[facility] Start: 10-22-2022 End: 11-02-[address] Cristy ARAYA Facility:[facility] Start: 09-30-2022 Refill Bernardino Maria Elena Villagomez DO Work Phone: Endocrinology Comment on above: Refill Request Start: 09-13-2022 Telephone encounter Bernardino Roach rs[place] DO Work Phone: Endocrinology Comment on above: Annabelle PARRA CGM don e Electronically (sensors) Start: 07-09-2022 Telephone encounter Glo viera DAY HABILITATION SUPERVISOR.ROD WELDER Work Phone: Endocrinology Comment on above: Patient Question Start: 06-20-2022 End: 06-21-[address] Cristy ARAYA Facility:[facility] Start: 06-06-2022 End: 06-06-2022 Patient encounter procedure Glo Sandra APRN.ROD WELDER Work Phone: Endocrinology Comment on above: Diabetes mellitus ty pe 1, controlled, insulin dependent (HCC) (Primary Dx); Insulin pump status; Mixed hyperlipidemia; Acquired hypothyroidism Start: 05-29-2022 End: 05-29-2022 Departed Referred DO Darryn Araya Work Phone: [facility]-Lab [facility] [place] Start: 05-20-2022 End: 05-21-[address] DOCTOR COOK Facility:[facility] Start: 04-27-2022 End: 04-27-[address] Cristy ARAYA Facility:[facility] Start: 04-16-2022 End: 04-16-2022 Emergency department patient visit DO Darryn Araya Work Phone: [facility]-Emergency Room Start: 02-19-2022 Telephone encounter Bernardino Maria Elena villegas DO Work Phone: Endocrinology Comment on above: [employer] Supplies (infusion set non needle cannula/syringe w/needle for pump) Start: 10-23-2021 End: 10-23-2021 ambulatory Tom Calderon Other [employer] Other Start: 10-23-2021 Office outpatient ne w 30 minutes Tom Calderon [facility] [place] Start: 12-10-2018 Patient encounter procedure Bandar Uddin Teofilo Facility:[id number] Start: 11-22-2018 Patient encounter procedure Bandar Uddin Teofilo Facility:[id number] Start: 11-21-2018 Patient encounter procedure Bandar Uddin Teofilo Facility:[id number] Start: 11-20-2018 Patient encounter procedure Bandar Uddin Teofilo Facility:[id number] Start: 11-19-2018 Patient encounter procedure Bandar Uddin Teofilo Facility:[id number] Start: 11-18-2018 Patient encounter procedure Bandar Uddin Teofilo Facility:[id number] Start: 11-17-2018 Patient encounter procedure Bandar Uddin Teofilo Facility:[id number] Start: 11-16-2018 Patient encounter procedure Bandar Uddin Teofilo Facility:[id number] Start: 11-05-2018 Patient encounter procedure Bandar Uddin Teofilo Facility:[id number] Start: 10-19-2018 Patient encounter procedure NADIM AL-SHERWIN Facility:[id number] Start: 10-14-2018 Patient encounter procedure Leonel (Atassi) Louis-Atassi Facility:[facility] Start: 09-21-2018 Patient encounter procedure CHRISTIAN KINSEY Facility:[facility] Alyse Beal Start: 09-10-2018 Patient encounter procedure Saturnino (Al-Muomaira) Sherwin Facility:[facility] Start: 09-10-2018 Patient encounter procedure NADHUMZA AL-SHERWIN Facility:[id number] Start: 09-10-2018 Patient encounter procedure SATURNINO AL-SHERWIN Facility:[id number] Start: 09-03-2018 Patient encounter procedure Bandar Vidales Teofilo Facility:[id number] Procedures Date Procedure Procedure Detail Performing Clinician Start: 05-16-2025 XR pre/post mri xray Darryn Araya DO Work Phone: Start: 05-16-2025 MRI of lumbar spine with contrast Darryn Araya DO Work Phone: Start: 05-05-2025 Radex spine lumbosac ral minimum 4 views Maliha Berg MD Work Phone: Start: 12-30-2024 Ecg routine ecg w/le ast 12 lds i&r only [facility] Provider Start: 12-07-2024 Hemoglobin A1c/Hemoglobin.total in Blood Bernardino Villagomez DO Work Phone: Start: 11-24-2024 [facility] MICROALB CREAT R ATIO RANDOM Generic External Data Provider Start: 08-11-2024 Complete blood count with white cell differential, automated Mikael Araya DO Work Phone: Start: 08-11-2024 Comprehensive metabo lic panel Mikael Araya DO Work Phone: Start: 07-08-2024 Hemoglobin A1c/Hemoglobin.total in Blood Glo Sandra APRN.ROD WELDER Work Phone: Start: 06-25-2024 NM bone scan whole body DO Darryn Araya Work Phone: Start: 03-25-2024 X-ray of lumbar spin e, two or three views DO Darryn Araya Work Phone: Start: 12-31-2023 Hemoglobin A1c/Hemoglobin.total in Blood Bernardino Villagomez DO Work Phone: Start: 12-06-2023 MLR HEMOGLOBIN A1C Gene shaneka External Data Provider Start: 12-06-2023 [facility] MICROALB CREAT R ATIO RANDOM Generic External Data Provider Start: 06-26-2023 Nasal septoplasty Pearl Cueto Comment on above: bilateral image guid ed pansinusectomy, and septoplasty Start: 04-17-2023 Plain X-ray of right shoulder DO Darryn Araya Work Phone: Start: 06-20-[address] Cristy ARAYA Comment on above: Performed By: #### H [facility] #### [facility] [address] [place] [address] Dr. Otilia Pruett Start: 04-16-2022 Duplex scan veins of upper limb DO Darryn Eve Araya Work Phone: Start: 12-10-2018 Follow-up visit Start: 11-05-2018 Follow-up visit Start: 10-23-2018 Follow-up visit Start: 09-10-2018 Follow-up visit Start: 09-03-2018 Follow-up visit Start: 08-11-2015 Colonoscopy Generic Pr ovider Adenoid excision Vidhya Canales is History of tonsillectomy Hil lyric Cueto Screening for malign ant neoplasm of colon Tom Olexa Other Plan of Treatment Date Care Activity Detail Author Start: 10-07-2034 Urine microalbumin profile DTaP,Tdap,Td Vaccine (2 - Td or Tdap) [facility] Start: 2029 Pneumococcal vaccination Pneumococcal Vaccine (3 of 3 - PPSV23 or PCV20) [facility] Start: 06-09-2029 Prostate specific antigen measurement Prostate Cancer Screening Discussion [facility] Start: 06-20-2027 PROSTATE CANCER SCREENING DISCUSSION PROSTATE CANCER SCREENING DISCUSSION [facility] Start: 06-20-2027 Prostate specific antigen measurement Prostate Cancer Screening Discussion [facility] Start: 05-21-2026 Pneumococcal vaccination [facility] Start: 05-21-2026 Pneumococcal Vaccine: 50+ (3 of 3 - PCV20 or PCV21) Pneumococcal Vaccine: 50+ (3 of 3 - PCV20 or PCV21) [facility] Start: 02-14-2026 Glaucoma screening Diabetes: Retinopathy Screening [facility] Start: 12-30-2025 Hepatitis B screening Urine Albumin:Creatinine Ratio [facility] Start: 12-30-2025 Hepatitis B surface antibody level LDL Cholesterol [facility] Start: 12-30-2025 Urine screening for protein Diabetes: Urine Protein Screening [facility] Start: 12-07-2025 End: 12-07-2025 Patient encounter procedure 12/07/2025 3:40 PM EST Office Visit Endocrinology [address] [place] [address] Bernardino Villagomez DO [address] [place] [address] me in one year. Endocrinology Comment on above: me in one year. Start: 08-11-2025 End: 08-11-2025 Patient encounter procedure 08/11/2025 2:40 PM EDT Office Visit [facility] [address] [place] [address] [place] [address] [place] [address] 6 MONTH FOLLOW UP [facility] Comment on above: 6 MONTH FOLLOW UP Start: 08-11-2025 Screening for malignant neoplasm of colon [facility] Start: 08-11-2025 Urine screening for protein Diabetes: Urine Protein Screening [facility] Start: 07-04-2025 Influenza [facility] Start: 06-29-2025 Hemoglobin A1c measurement HbA1C [facility] Start: 06-09-2025 Urine screening for protein Diabetes: Urine Protein Screening [facility] Start: 06-06-2025 End: 06-06-2025 Patient encounter procedure 06/06/2025 3:00 PM EDT Office Visit Endocrinology [address] [place] [address] Glo Sandra APRN.ROD WELDER [address] [facility] [address] [place] [address] see ROD WELDER in [place] 6 months Endocrinology Comment on above: see ROD WELDER in [place] 6 months Start: 06-06-2025 Hemoglobin A1c measurement HbA1C [facility] Start: 05-05-2025 End: 05-05-2025 Patient encounter procedure 05/05/2025 9:40 AM EDT Office Visit [facility] [address] [facility] [place] [address] Malhia Berg [place] [address] [place] [address] Left L5-S1 discectomy with root foraminotomy in January with continued pain [facility] Comment on above: Left L5-S1 discectomy with root foramino bridget in January with continued pain Start: 04-27-2025 End: 04-27-2025 ambulatory 04/27/2025 5:15 PM EDT OT/PT/Speech Visit [facility] [address] [facility] [place] [address] Chery Land, PT [address] [facility] [address] [address] [place] [address] no copay Chronic bilateral low back pain with left-sided sciatica [G89.29, M54.42] [facility] Comment on above: no copay Chronic bilateral low back pain with left-sided sciatica [G89.29, M54.42] Start: 04-11-2025 End: 04-11-2025 ambulatory 04/11/2025 6:00 PM EDT OT/PT/Speech Visit [facility] [address] [facility] [place] [address] Chery Land, PT [address] [facility] [address] [place] [address] no copay Chronic bilateral low back pain with left-sided sciatica [G89.29, M54.42] [facility] Comment on above: no copay Chronic bilateral low back pain with left-sided sciatica [G89.29, M54.42] Start: 04-01-2025 End: 04-30-2025 CBC W Auto Differential panel - Blood CBC and differential Lab Routine Neuropathy Primary hypertension (CMS/HCC) Lumbosacral radiculopathy at L5 Type 1 diabetes mellitus without complication Abnormal MRI, lumbar spine Acquired hypothyroidism (CMS/HCC) Expected: 04/01/2025 (Approximate), Expires: 04/30/2025 [facility] Work Phone: Comment on above: Expected: 04/01/2025 (Approximate), Expi res: 04/30/2025 Start: 04-01-2025 End: 04-30-2025 Comprehensive metabolic 2000 panel - Serum or Plasma Comprehensive metabolic panel Lab Routine Neuropathy Primary hypertension (CMS/HCC) Lumbosacral radiculopathy at L5 Type 1 diabetes mellitus without complication Abnormal MRI, lumbar spine Acquired hypothyroidism (CMS/HCC) Expected: 04/01/2025 (Approximate), Expires: 04/30/2025 [facility] Comment on above: Expected: 04/01/2025 (Approximate), Expi res: 04/30/2025 Start: 04-01-2025 End: 04-30-2025 Erythrocyte sedimentation rate Sedimentation rate, automated Lab Routine Neuropathy Lumbosacral radiculopathy at L5 Type 1 diabetes mellitus without complication Expected: 04/01/2025 (Approximate), Expires: 04/30/2025 [facility] Comment on above: Expected: 04/01/2025 (Approximate), Expi res: 04/30/2025 Start: 04-01-2025 End: 04-30-2025 Thyrotropin [Units/volume] in Serum or Plasma TSH Lab Routine Acquired hypothyroidism (CMS/HCC) Expected: 04/01/2025 (Approximate), Expires: 04/30/2025 [facility] Comment on above: Expected: 04/01/2025 (Approximate), Expi res: 04/30/2025 Start: 04-01-2025 End: 04-30-2025 Thyroxine (T4) free [Mass/volume] in Serum or Plasma T4, free Lab Routine Acquired hypothyroidism (CMS/HCC) Expected: 04/01/2025 (Approximate), Expires: 04/30/2025 [facility] Comment on above: Expected: 04/01/2025 (Approximate), Expi res: 04/30/2025 Start: 04-01-2025 End: 04-30-2025 Triiodothyronine (T3) [Mass/volume] in Serum or Plasma T3 Lab Routine Acquired hypothyroidism (CMS/HCC) Expected: 04/01/2025 (Approximate), Expires: 04/30/2025 [facility] Comment on above: Expected: 04/01/2025 (Approximate), Expi res: 04/30/2025 Start: 03-31-2025 End: 03-31-2025 Patient encounter procedure 03/31/2025 3:00 PM EDT Office Visit [facility] [address] [place] [phone] Mikael Araya DO [address] [place], [place] [id number] Arrived [facility] [address] Comment on above: Arrived Start: 03-30-2025 End: 03-30-2025 ambulatory 03/30/2025 6:00 PM EDT OT/PT/Speech Visit [facility] [address] [facility] [place] [address] Chery Land PT [address] [facility] [address] [place] [id number] no copay Chronic bilateral low back pain with left-sided sciatica [G89.29, M54.42] [facility] Comment on above: no copay Chronic bilateral low back pain with left-sided sciatica [G89.29, M54.42] Start: 03-29-2025 Hemoglobin A1c measurement Diabetes: Hemoglobin A1C [facility] Start: 03-16-2025 End: 03-16-2025 ambulatory 03/16/2025 5:00 PM EDT OT/PT/Speech Visit [facility] [address] [facility] [place] [address] Damien Reeves PTA [address] [facility] [place] [place] [address] no copay Chronic bilateral low back pain with left-sided sciatica [G89.29, M54.42] [facility] Comment on above: no copay Chronic bilateral low back pain with left-sided sciatica [G89.29, M54.42] Start: 03-09-2025 End: 03-09-2025 ambulatory 03/09/2025 5:00 PM EDT OT/PT/Speech Visit [facility] [address] [facility] [place] [address] Damien Reeves, ORNAMENTAL IRONWORKING SUPERVISOR [address] [facility] [place] [address] no copay Chronic bilateral low back pain with left-sided sciatica [G89.29, M54.42] [facility] Comment on above: no copay Chronic bilateral low back pain with left-sided sciatica [G89.29, M54.42] Start: 03-06-2025 Hemoglobin A1c measurement Diabetes: Hemoglobin A1C [facility] Start: 03-01-2025 End: 03-01-2025 ambulatory 03/01/2025 1:00 PM EDT OT/PT/Speech Visit [facility] [address] [facility] [place] [address] Chery Land PT [address] [facility] [place] [place] [address] Chronic bilateral low back pain with left-sided sciatica [G89.29, M54.42] [facility] Comment on above: Chronic bilateral low back pain with lef t-sided sciatica [G89.29, M54.42] Start: 02-17-2025 Glaucoma screening Diabetes: Retinopathy Screening [facility] Start: 02-16-2025 End: 02-16-2025 Patient encounter procedure 02/16/2025 2:30 PM EDT Office Visit [facility] [address] [place] [phone] Jeaneth Shi MD [address] [place] [address] [facility] Start: 02-15-2025 End: 02-15-2025 Patient encounter procedure 02/15/2025 3:30 PM EDT Office Visit [facility] [address] [place] [address] [facility] Start: 02-03-2025 End: 02-03-2025 Patient encounter procedure 02/03/2025 11:40 AM EDT Office Visit [facility] [address] [place] [address] [place] [address] [facility] [place] [address] post op 01/12-Procedure: LAMINOTOMY W/ DECOMPRESSION OF NERVE ROOT(S) PARTIAL FACETECTOMY FORAMINOTOMY AND/OR EXCISION OF HERNIATED INTERVERTEBRAL DISC 1 INTERSPACE LUMBAR [facility] Comment on above: post op 01/12-Procedure: LAMINOTOMY W/ DE COMPRESSION OF NERVE ROOT(S) PARTIAL FACETECTOMY FORAMINOTOMY AND/OR EXCISION OF HERNIATED INTERVERTEBRAL DISC 1 INTERSPACE LUMBAR Start: 01-12-2025 End: 01-12-2025 Admission to same day surgery center 01/12/2025 10:00 AM EDT - 01/12/2025 12:35 PM EDT [facility] Operating Room [address] [place] [address] [place] [address] [place] [address] LAMINOTOMY W/ DECOMPRESSION OF NERVE ROOT(S) PARTIAL FACETECTOMY FORAMINOTOMY AND/OR EXCISION OF HERNIATED INTERVERTEBRAL DISC 1 INTERSPSLATEDALE LUMBAR [facility] Room Comment on above: LAMINOTOMY W/ DECOMPRESSION OF NERVE RONALD T(S) PARTIAL FACETECTOMY FORAMINOTOMY AND/OR EXCISION OF HERNIATED INTERVERTEBRAL DISC 1 INTERSPACE LUMBAR Start: 01-12-2025 End: 01-12-2025 Lamnotmy incl w/dcmprsn nrv root 1 intrspc lumbr LAMINOTOMY W/ DECOMPRESSION OF NERVE ROOT(S) PARTIAL FACETECTOMY FORAMINOTOMY AND/OR EXCISION OF HERNIATED INTERVERTEBRAL DISC 1 INTERSPACE LUMBAR Intervertebral disc disorder with radiculopathy of lumbar region 01/12/2025 10:00 AM EDT [facility] Start: 01-12-2025 Subsequent hospital visit by physician 01/12/2025 10:00 AM EDT Hospital Encounter [facility] Operating Room [address] [place] [address] [place] [address] [place] [address] [facility] [place] [address] 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] [facility] Operating Room Comment on above: Intervertebral disc disorder with radicu lopathy of lumbar region [M51.16] Start: 01-05-2025 Hemoglobin A1c measurement HbA1C [facility] Start: 01-05-2025 End: 01-05-2025 Patient encounter procedure 01/05/2025 9:00 AM EST Office [place] [address] SURGICAL REGISTRATION APPT [phone] [facility] Screening Comment on above: SURGICAL REGISTRATION APPT [phone] Start: 12-30-2024 End: 03-31-2025 CBC panel - Blood by Automated count [facility] Comment on above: Expected: 12/30/2024, Expires: Start: 12-30-2024 End: 03-31-2025 STAPHYLOCOCCUS AUREUS & MRSA SCREEN, PCR, NASAL [facility] Comment on above: Expected: 12/30/2024, Expires: Start: 12-30-2024 End: 12-30-2024 Admission to same day surgery center 12/30/2024 7:50 AM EST PAT Pre Anesthesia [address] [place] [address] PAT surgery 01/[address] Berg Pre Anesthesia Comment on above: PAT surgery 01/[address] Berg Start: 12-24-2024 End: 12-24-2024 Patient encounter procedure 12/24/2024 8:40 AM EST Office Visit Neurosurgery [address] [place] [address] [place] [address] [place] [address] Maliha Berg would like a VV with patient Neurosurgery Comment on above: Maliha Berg would like a VV with patient Start: 12-23-2024 End: 12-23-2024 Patient encounter procedure 12/23/2024 11:40 AM EST Office Visit [facility] [address] [address] [place] [address] [place] [address] follow up-ok per DT [facility] Comment on above: follow up-ok per DT Start: 12-15-2024 End: 12-15-2024 Patient encounter procedure 12/15/2024 3:40 PM EST Office Visit Endocrinology [address] [place] [address] Bernardino Villagomez, DO [address] [place] [address] me in one year Endocrinology Comment on above: me in one year Start: 12-10-2024 Hemoglobin A1c measurement HbA1C [facility] Start: 12-08-2024 End: 12-08-2024 Patient encounter procedure [facility] Comment on above: Arrived Start: 12-04-2024 End: 03-05-2025 Comprehensive metabolic 2000 panel - Serum or Plasma COMPREHENSIVE METABOLIC PANEL Lab Routine Diabetes mellitus type 1, controlled, insulin dependent (HCC) Expected: 12/04/2024, Expires: 03/05/2025 [facility] Work Phone: Comment on above: Expected: 12/04/2024, Expires: Start: 12-04-2024 End: 03-05-2025 Hemoglobin A1c in Blood HEMOGLOBIN A1C Lab Routine Diabetes mellitus type 1, controlled, insulin dependent (HCC) Expected: 12/04/2024, Expires: 03/05/2025 [facility] Comment on above: Expected: 12/04/2024, Expires: Start: 12-04-2024 End: 03-05-2025 Lipid 1996 panel - Serum or Plasma LIPID PANEL BASIC Lab Routine Mixed hyperlipidemia Expected: 12/04/2024, Expires: 03/05/2025 [facility] Comment on above: Expected: 12/04/2024, Expires: Start: 12-04-2024 End: 03-05-2025 Microalbumin/Creatinine [Mass Ratio] in Urine ALBUMIN/CREATININE RATIO, URINE Lab Routine Diabetes mellitus type 1, controlled, insulin dependent (HCC) Expected: 12/04/2024, Expires: 03/05/2025 [facility] Comment on above: Expected: 12/04/2024, Expires: Start: 12-04-2024 End: 03-05-2025 Thyrotropin [Units/volume] in Serum or Plasma THYROID STIMULATING HORMONE Lab Routine Acquired hypothyroidism Expected: 12/04/2024, Expires: 03/05/2025 [facility] Comment on above: Expected: 12/04/2024, Expires: Start: 2024 RSV Vaccine (1 - Risk 60-74 years 1-dose series) RSV Vaccine (1 - Risk 60-74 years 1-dose series) [facility] Start: 10-07-2024 Hemoglobin A1c measurement Diabetes: Hemoglobin A1C [facility] Start: 09-29-2024 End: 09-29-2024 Patient encounter procedure 09/29/2024 10:00 AM EST Office Visit [facility] [address] [place] [address] [place] [address] [place] [address] Sciatica Pain per Web Request [facility] Comment on above: Sciatica Pain per Web Request Start: 09-28-2024 End: 09-28-2024 Admission to same day surgery center 09/28/2024 2:30 PM EST - 09/28/2024 3:00 PM EST Surgery Procedures [address] [place] [address] [place] [address] [place] [address] INJECTION(S) ANESTHETIC AGENT AND STEROID TRANSFORAMINAL EPIDURAL LUMBAR W/IMAGE GUIDANCE FLUORO OR CT Procedures Comment on above: INJECTION(S) ANESTHETIC AGENT AND STEROI D TRANSFORAMINAL EPIDURAL LUMBAR W/IMAGE GUIDANCE FLUORO OR CT Start: 09-28-2024 End: 09-28-2024 Njx anes&/strd w/img tfrml edrl lmbr/sac 1 lvl INJECTION(S) ANESTHETIC AGENT AND STEROID TRANSFORAMINAL EPIDURAL LUMBAR W/IMAGE GUIDANCE FLUORO OR CT Radiculopathy, lumbar region Spinal stenosis of lumbar region, unspecified whether neurogenic claudication present 09/28/2024 2:30 PM EST [facility] Start: 09-28-2024 End: 09-28-2024 Patient encounter procedure 09/28/2024 2:30 PM EST Appointment Procedures [address] [place] [address] [place] [address] [place] [address] Injection Type: Procedures Comment on above: Injection Type: Start: 09-28-2024 Subsequent hospital visit by physician 09/28/2024 2:30 PM EST Hospital Encounter Procedures [address] [place] [address] [place] [address] [place] [address] Radiculopathy, lumbar region [M54.16], Spinal stenosis of lumbar region, unspecified whether neurogenic claudication present [M48.061] Procedures Comment on above: Radiculopathy, lumbar region [M54.16], S jeanine stenosis of lumbar region, unspecified whether neurogenic claudication present [M48.061] Start: 09-09-2024 Hemoglobin A1c measurement Diabetes: Hemoglobin A1C [facility] Start: 09-03-2024 End: 09-03-2025 US.doppler Lower extremity vein - left Vascular US lower extremity venous duplex left Imaging Routine Left leg pain Edema, unspecified type Expected: 09/03/2024, Expires: 09/03/2025 [facility] Work Phone: Comment on above: Expected: 09/03/2024, Expires: Start: 09-03-2024 End: 09-03-2024 Professional / ancillary services management 09/03/2024 1:15 PM EDT Ancillary Procedure [facility] [address] [place] [id number] Arrived [facility] Comment on above: Arrived Start: 09-03-2024 End: 09-03-2024 Patient encounter procedure 09/03/2024 12:40 PM EDT Office Visit [facility] [address] [place] [address] Mikael Araya, DO [address] [place] [address] Arrived [facility] Comment on above: Arrived Start: 08-11-2024 End: 08-11-2025 CBC W Auto Differential panel - Blood CBC and differential Lab Routine Lumbosacral radiculopathy at L5 Neuropathy Type 1 diabetes mellitus without complication (CMS/HCC) Expected: 08/11/2024 (Approximate), Expires: 08/11/2025 [facility] Work Phone: Comment on above: Expected: 08/11/2024 (Approximate), Expi res: 08/11/2025 Start: 08-11-2024 End: 08-11-2025 Comprehensive metabolic 2000 panel - Serum or Plasma Comprehensive metabolic panel Lab Routine Type 1 diabetes mellitus without complication (CMS/HCC) Flank pain Expected: 08/11/2024 (Approximate), Expires: 08/11/2025 [facility] Comment on above: Expected: 08/11/2024 (Approximate), Expi res: 08/11/2025 Start: 08-11-2024 End: 08-11-2025 Urinalysis complete panel - Urine Urinalysis with reflex microscopic Lab Routine Flank pain Expected: 08/11/2024 (Approximate), Expires: 08/11/2025 [facility] Comment on above: Expected: 08/11/2024 (Approximate), Expi res: 08/11/2025 Start: 08-11-2024 End: 08-11-2024 Patient encounter procedure 08/11/2024 12:20 PM EDT Office Visit [facility] [address] [place] [address] Mikael Araya, DO [address] [place] [address] Arrived [facility] 230 Comment on above: Arrived Start: 07-08-2024 End: 07-08-2024 Patient encounter procedure 07/08/2024 3:30 PM EDT Office Visit Endocrinology [address] [facility] [place] [address] Glo Sandra, JANIE.ROD WELDER [address] [place] [address] See ROD WELDER in [place] in six months Endocrinology Comment on above: See ROD WELDER in [place] in six months Start: 07-04-2024 End: 10-03-2024 ALBUMIN/CREAT RATIO RND UR ALBUMIN/CREAT RATIO RND UR Lab Routine Plaque psoriasis Adult onset hypothyroidism Diabetes mellitus type 1, controlled, insulin dependent (HCC) Insulin pump status Expected: 07/04/2024 (Approximate), Expires: 10/03/2024 [facility] Work Phone: Comment on above: Expected: 07/04/2024 (Approximate), Expi res: 10/03/2024 Start: 07-04-2024 End: 10-03-2024 Comprehensive metabolic 2000 panel - Serum or Plasma COMP METABOLIC PANEL Lab Routine Plaque psoriasis Adult onset hypothyroidism Diabetes mellitus type 1, controlled, insulin dependent (HCC) Insulin pump status Expected: 07/04/2024 (Approximate), Expires: 10/03/2024 [facility] Work Phone: Comment on above: Expected: 07/04/2024 (Approximate), Expi res: 10/03/2024 Start: 07-04-2024 Covid-19 Vaccine ( season) Covid-19 Vaccine () [facility] Start: 07-04-2024 End: 10-03-2024 Hemoglobin A1c in Blood HGB A1C Lab Routine Plaque psoriasis Adult onset hypothyroidism Diabetes mellitus type 1, controlled, insulin dependent (HCC) Insulin pump status Expected: 07/04/2024 (Approximate), Expires: 10/03/2024 [facility] Work Phone: Comment on above: Expected: 07/04/2024 (Approximate), Expi res: 10/03/2024 Start: 07-04-2024 Influenza vaccination [facility] Start: 07-04-2024 End: 10-03-2024 Lipid 1996 panel - Serum or Plasma LIPID PANEL BASIC Lab Routine Plaque psoriasis Adult onset hypothyroidism Diabetes mellitus type 1, controlled, insulin dependent (HCC) Insulin pump status Expected: 07/04/2024 (Approximate), Expires: 10/03/2024 [facility] Work Phone: Comment on above: Expected: 07/04/2024 (Approximate), Expi res: 10/03/2024 Start: 07-04-2024 End: 10-03-2024 Thyrotropin [Units/volume] in Serum or Plasma TSH BLD Lab Routine Plaque psoriasis Adult onset hypothyroidism Diabetes mellitus type 1, controlled, insulin dependent (HCC) Insulin pump status Expected: 07/04/2024 (Approximate), Expires: 10/03/2024 [facility] Work Phone: Comment on above: Expected: 07/04/2024 (Approximate), Expi res: 10/03/2024 Start: 06-30-2024 Hemoglobin A1c measurement HbA1C [facility] Start: 06-29-2024 End: 06-29-2024 Admission to same day surgery center 06/29/2024 8:45 AM EDT - 06/29/2024 9:00 AM EDT Surgery Procedures [address] [place] [address] [place] [address] [place] [address] INJECTION(S) ANESTHETIC AGENT AND STEROID TRANSFORAMINAL EPIDURAL W/ IMAGING GUIDANCE LUMBAR Procedures Comment on above: INJECTION(S) ANESTHETIC AGENT AND STEROI D TRANSFORAMINAL EPIDURAL W/ IMAGING GUIDANCE LUMBAR Start: 06-29-2024 End: 06-29-2024 Njx anes&/strd w/img tfrml edrl lmbr/sac 1 lvl INJECTION(S) ANESTHETIC AGENT AND STEROID TRANSFORAMINAL EPIDURAL W/ IMAGING GUIDANCE LUMBAR Spinal stenosis of lumbar region, unspecified whether neurogenic claudication present Lumbar radiculopathy, chronic 06/29/2024 8:45 AM EDT [facility] Start: 06-29-2024 End: 06-29-2024 Njx anes&/strd w/img tfrml edrl lmbr/sac ea lv BLOCK NERVE ROOT LUMBAR EACH ADDITIONAL VERTEBRA 2 W/ IMAGE GUIDANCE Spinal stenosis of lumbar region, unspecified whether neurogenic claudication present Lumbar radiculopathy, chronic 06/29/2024 8:45 AM EDT [facility] Start: 06-29-2024 Subsequent hospital visit by physician 06/29/2024 8:45 AM EDT Hospital Encounter Procedures [address] [place] [address] [place] [address] [place] [address] Spinal stenosis of lumbar region, unspecified whether neurogenic claudication present [M48.061] Procedures Comment on above: Spinal stenosis of lumbar region, unspec ified whether neurogenic claudication present [M48.061] Start: 06-29-2024 End: 06-29-2024 Patient encounter procedure 06/29/2024 8:30 AM EDT Appointment Procedures [address] [place] [address] [place] [address] [place] [address] TFESI Lt l4-5 and l5-s1 Procedures Comment on above: TFESI Lt l4-5 and l5-s1 Start: 06-23-2024 End: 06-23-2024 Patient encounter procedure 06/23/2024 8:30 AM EDT Office Visit [facility] [place] [address] [place] [id number] Blanca Martinez MD [address] [place] [address] 4 weeks (around 06/15/2024) for Follow up. [facility] [place] Comment on above: 4 weeks (around 06/15/2024) for Follow up . Start: 06-07-2024 End: 06-07-2024 Patient encounter procedure 06/07/2024 10:00 AM EDT Office Visit [facility] [address] [place] [address] [place] [address] [place] [address] sciatica [facility] Comment on above: sciatica Start: 05-18-2024 End: 05-18-2024 Patient encounter procedure 05/18/2024 9:40 AM EDT Office Visit [facility] [place] [address] [place] [phone] Blanca Martinez MD [address] [place] [address] GA treatment- MD only per Patricia [facility] [place] Comment on above: GA treatment- MD only per Patricia Start: 03-24-2024 End: 03-24-2024 Patient encounter procedure 03/24/2024 3:30 PM EDT Office Visit [facility] [address] [place] [address] Parul Rico, JANIE.ROD WELDER [address] [place], [place] [id number] Per staff message, 03/18, Rosa Major [facility] Comment on above: Per staff message, 03/18, Rosa Major Start: 12-18-2023 Hemoglobin A1c measurement HbA1C [facility] Start: 12-18-2023 Hemoglobin A1c/Hemoglobin.total in Blood HbA1C [facility] Start: 11-16-2023 Hepatitis B screening URINE ALBUMIN:CREATININE RATIO [facility] Start: 11-16-2023 Urine screening for protein Diabetes: Urine Protein Screening [facility] Start: 11-03-2023 Behavioral Health Screening Behavioral Health Screening [facility] Start: 11-03-2023 Depression Assessment Depression Assessment [facility] Start: 10-13-2023 Covid-19 Vaccine () Covid-19 Vaccine () [facility] Start: 09-17-2023 Hemoglobin A1c measurement Diabetes: Hemoglobin A1C [facility] Start: 07-04-2023 Covid-19 Vaccine ( season) Covid-19 Vaccine () [facility] Start: 07-04-2023 Influenza vaccination Influenza Vaccine (#1) [facility] Start: 05-26-2023 End: 07-26-2023 ALBUMIN/CREAT RATIO RND UR ALBUMIN/CREAT RATIO RND UR Lab Routine Diabetes mellitus type 1, controlled, insulin dependent (HCC) Expected: 05/26/2023 (Approximate), Expires: 07/26/2023 [facility] Work Phone: Comment on above: Expected: 05/26/2023 (Approximate), Expi res: 07/26/2023 Start: 05-26-2023 End: 07-26-2023 Comprehensive metabolic 2000 panel - Serum or Plasma COMP METABOLIC PANEL Lab Routine Diabetes mellitus type 1, controlled, insulin dependent (HCC) Expected: 05/26/2023 (Approximate), Expires: 07/26/2023 [facility] Work Phone: Comment on above: Expected: 05/26/2023 (Approximate), Expi res: 07/26/2023 Start: 05-26-2023 End: 07-26-2023 Hemoglobin A1c in Blood HGB A1C Lab Routine Diabetes mellitus type 1, controlled, insulin dependent (HCC) Expected: 05/26/2023 (Approximate), Expires: 07/26/2023 [facility] Work Phone: Comment on above: Expected: 05/26/2023 (Approximate), Expi res: 07/26/2023 Start: 05-26-2023 End: 07-26-2023 Lipid 1996 panel - Serum or Plasma LIPID PANEL BASIC Lab Routine Diabetes mellitus type 1, controlled, insulin dependent (HCC) Expected: 05/26/2023 (Approximate), Expires: 07/26/2023 [facility] Work Phone: Comment on above: Expected: 05/26/2023 (Approximate), Expi res: 07/26/2023 Start: 05-26-2023 End: 07-26-2023 Thyrotropin [Units/volume] in Serum or Plasma TSH BLD Lab Routine Diabetes mellitus type 1, controlled, insulin dependent (HCC) Expected: 05/26/2023 (Approximate), Expires: 07/26/2023 [facility] Work Phone: Comment on above: Expected: 05/26/2023 (Approximate), Expi res: 07/26/2023 Start: 05-26-2023 End: 07-26-2023 Thyroxine (T4) free [Mass/volume] in Serum or Plasma T4 FREE/FREE THYROX Lab Routine Diabetes mellitus type 1, controlled, insulin dependent (HCC) Expected: 05/26/2023 (Approximate), Expires: 07/26/2023 [facility] Work Phone: Comment on above: Expected: 05/26/2023 (Approximate), Expi res: 07/26/2023 Start: 05-16-2023 Hemoglobin A1c/Hemoglobin.total in Blood HBA1C [facility] Start: 12-07-2022 End: 02-06-2023 ALBUMIN/CREAT RATIO RND UR ALBUMIN/CREAT RATIO RND UR Lab Routine Diabetes mellitus type 1, controlled, insulin dependent (HCC) Expected: 12/07/2022, Expires: 02/06/2023 [facility] Work Phone: Comment on above: Expected: 12/07/2022, Expires: 3 Start: 12-07-2022 End: 02-06-2023 Basic metabolic 2000 panel - Serum or Plasma BASIC METABOLIC PNL Lab Routine Diabetes mellitus type 1, controlled, insulin dependent (HCC) Expected: 12/07/2022, Expires: 02/06/2023 [facility] Work Phone: Comment on above: Expected: 12/07/2022, Expires: 3 Start: 12-07-2022 End: 02-06-2023 Hemoglobin A1c in Blood HGB A1C Lab Routine Diabetes mellitus type 1, controlled, insulin dependent (HCC) Expected: 12/07/2022, Expires: 02/06/2023 [facility] Work Phone: Comment on above: Expected: 12/07/2022, Expires: 3 Start: 12-07-2022 End: 02-06-2023 Thyrotropin [Units/volume] in Serum or Plasma TSH BLD Lab Routine Acquired hypothyroidism Expected: 12/07/2022, Expires: 02/06/2023 [facility] Work Phone: Comment on above: Expected: 12/07/2022, Expires: 3 Start: 11-03-2022 DEPRESSION ASSESSMENT DEPRESSION ASSESSMENT [facility] Start: 07-04-2022 Influenza vaccination INFLUENZA (#1) [facility] Start: 06-04-2022 Hemoglobin A1c/Hemoglobin.total in Blood HBA1C [facility] Start: 11-03-2021 DEPRESSION ASSESSMENT DEPRESSION ASSESSMENT [facility] Start: 10-31-2021 COVID-19 VACCINE (4 - Booster for Pfizer series) COVID-19 VACCINE (4 - Booster for Pfizer series) [facility] Start: 10-24-2021 COVID-19 VACCINE (4 - Booster for Pfizer series) COVID-19 VACCINE (4 - Booster for Pfizer series) [facility] Start: 09-26-2021 COVID-19 VACCINE (4 - Booster for Pfizer series) COVID-19 VACCINE (4 - Booster for Pfizer series) [facility] Start: 08-30-2021 Glaucoma screening Diabetes: Retinopathy Screening [facility] Start: 02-24-2021 Glaucoma screening Dilated Retinal Exam [facility] Start: 02-24-2021 Hepatitis C antibody, confirmatory test DILATED RETINAL EXAM [facility] Start: 2019 PROSTATE CANCER SCREENING DISCUSSION PROSTATE CANCER SCREENING DISCUSSION [facility] Start: 08-03-2017 Hepatitis B screening URINE ALBUMIN:CREATININE RATIO [facility] Start: 08-03-2017 Hepatitis B surface antibody level LDL CHOLESTEROL [facility] Start: 08-11-2016 Screening for malignant neoplasm of colon [facility] Start: 02-29-2016 3 comp foot exam completed DIABETIC FOOT EXAM [facility] Start: 02-29-2016 Diabetic foot examination Diabetic Foot Exam [facility] Start: 2014 SHINGRIX VACCINE (1 of 2) SHINGRIX VACCINE (1 of 2) [facility] Start: 2009 COLOGUARD (FIT-DNA) COLOGUARD (FIT-DNA) [facility] Start: 2009 Colonoscopy COLONOSCOPY [facility] Start: 2009 COLORECTAL CANCER SCREENING COLORECTAL CANCER SCREENING [facility] Start: [address] COLONOGRAPHY [facility] Start: 2009 FECAL OCCULT BLOOD FECAL OCCULT BLOOD [facility] Start: 2009 Screening for malignant neoplasm of colon [facility] Start: 2009 SIGMOIDOSCOPY SIGMOIDOSCOPY [facility] Start: 1983 HEPATITIS B (1 of 3 - Risk 3-dose series) HEPATITIS B (1 of 3 - Risk 3-dose series) [facility] Start: 1983 SHINGRIX VACCINE (1 of 2) SHINGRIX VACCINE (1 of 2) [facility] Start: 1983 Urine microalbumin profile [facility] Start: 1982 ANNUAL PCP TEAM CHRONIC DISEASE VISIT ANNUAL PCP TEAM CHRONIC DISEASE VISIT [facility] Start: 1982 Anxiety Screening Anxiety Screening [facility] Start: 1982 BP Controlled (<130/80) BP Controlled (<130/80) [facility] Start: 1982 Depression Screening Depression Screening [facility] Start: 1982 HEPATITIS C SCREENING HEPATITIS C SCREENING [facility] Start: 1982 Hepatitis C screening Hepatitis C Screening [facility] Start: 1982 HIV SCREENING HIV SCREENING [facility] Start: 1982 HIV screening HIV Screening [facility] Start: 1982 Spirometry Spirometry [facility] Start: 1980 ONE PNEUMOVAX PRIOR TO AGE 65 ONE PNEUMOVAX PRIOR TO AGE 65 [facility] Start: 1976 Adult depression screening assessment DEPRESSION SCREENING [facility] Start: 1970 PNEUMOCOCCAL (1 - PCV) PNEUMOCOCCAL (1 - PCV) [facility] Start: 1970 Pneumococcal vaccination Pneumococcal Vaccine (1 - PCV) [facility] Start: 1964 HEPATITIS B (1 of 3 - 3-dose series) HEPATITIS B (1 of 3 - 3-dose series) [facility] Start: 1964 Hepatitis B Vaccine (1 of 3 - 3-dose series) Hepatitis B Vaccine (1 of 3 - 3-dose series) [facility] Start: 1964 Screening for malignant neoplasm of colon [facility] ECG COMPLETE [facility] Work Phone: Comment on above: Ordered: 12/30/2024 Hemoglobin A1c/Hemoglobin.total in Blood HEMOGLOBIN A1C (POC) Lab Routine Diabetes mellitus type 1, controlled, insulin dependent (HCC) Ordered: 12/18/2022 [facility] Work Phone: Comment on above: Ordered: 12/18/2022 End: 04-23-2025 MR Lumbar spine WO contrast MRI LUMBAR SPINE WO IVCON Radiology Routine Chronic bilateral low back pain with left-sided sciatica Radiculopathy of lumbar region 1 Occurrences starting 03/24/2024 until 04/23/2025 [facility] Comment on above: 1 Occurrences starting 03/24/2024 until 04/23/2025 Patient Education Superficial Phlebitis [facility] Work Phone: Patient referral [facility] Work Phone: SPINE INTERVENTION PROCEDURE SPINE INTERVENTION PROCEDURE Procedures Routine Spinal stenosis of lumbar region, unspecified whether neurogenic claudication present Lumbar radiculopathy, chronic Ordered: 06/07/2024 [facility] Work Phone: Comment on above: Ordered: 06/07/2024 SPINE INTERVENTION PROCEDURE SPINE INTERVENTION PROCEDURE Procedures Routine Radiculopathy of lumbar region Spinal stenosis of lumbar region, unspecified whether neurogenic claudication present Ordered: 08/20/2024 [facility] Work Phone: Comment on above: Ordered: 08/20/2024 SURGICAL PATHOLOGY SURGICAL PATH OLOGY Lab Routine Rash and nonspecific skin eruption 02/16/2024 3:34 PM EDT [facility] Work Phone: XR Knee - left 1 or 2 Views XR knee 1 or 2 views left Imaging Routine Acute pain of left knee 12/08/2024 11:39 AM EST [facility] Work Phone: End: 04-23-2025 XR Lumbar spine 3 Views XR LUMBAR GENERAL 3V AP/LAT/L5-S1 Radiology Routine Chronic bilateral low back pain with left-sided sciatica Radiculopathy of lumbar region 1 Occurrences starting 03/24/2024 until 04/23/2025 [facility] Work Phone: Comment on above: 1 Occurrences starting 03/24/2024 until 04/23/2025 End: 06-04-2026 XR Lumbar spine Views W flexion and W extension XR LUMBAR MOTION 4V AP/LAT/ FLEX/EXT Radiology Routine Chronic bilateral low back pain with left-sided sciatica 1 Occurrences starting 05/05/2025 until 06/04/2026 [facility] Work Phone: Comment on above: 1 Occurrences starting 05/05/2025 until 06/04/2026 XR Lumbar spine View s W flexion and W extension XR LUMBAR MOTION 4V AP/LAT/ FLEX/EXT Radiology Routine Chronic bilateral low back pain with left-sided sciatica 05/05/2025 10:31 AM EDT [facility] Immunizations Immunization Date Immunization Notes Care Provider Jayesh jenkins 10-07-2024 tetanus toxoid, redu patrick diphtheria toxoid, and acellular pertussis vaccine, adsorbed Mikael Araya DO Work Phone: [facility] 08-31-2024 influenza, seasonal, injectable, preservative free Mikael Araya DO Work Phone: [facility] 08-31-2024 influenza virus vaccine, unspecified formulation Maliha Berg MD Work Phone: [facility] 08-02-2023 influenza, injectabl e, quadrivalent, preservative free Generic Provider [facility] 08-02-2023 influenza virus vaccine, unspecified formulation Blanca Martinez MD Work Phone: [facility] 04-15-2023 zoster vaccine recombinant Generic Provider [facility] 08-10-2022 zoster vaccine recombinant Generic Provider [facility] 08-03-2022 influenza, injectabl e, quadrivalent, preservative free Generic Provider [facility] 08-03-2022 influenza virus vaccine, unspecified formulation Bernardino Villagomez DO Work Phone: [facility] 08-21-2021 influenza, seasonal, injectable Generic Provider [facility] 08-01-2021 COVID-19 mRNA, Comirnaty (Pfizer) DO Darryn Araya Work Phone: [facility] 07-27-2021 Influenza, injectabl e, Madin Hemalatha Canine Kidney, preservative free, quadrivalent Generic Provider [facility] 07-24-2021 influenza, injectabl e, quadrivalent, preservative free Generic Provider [facility] 05-21-2021 pneumococcal polysaccharide vaccine, 23 valent Generic Provider [facility] 01-05-2021 COVID-19 mRNA, Comirnaty (Pfizer) DO Darryn Araya Work Phone: [facility] 01-04-2021 Pfizer Purple Cap SARS-CoV-2 Vaccination Generic Provider [facility] 12-15-2020 COVID-19 mRNA, Comirnaty (Pfizer) DO Darryn Aarya Work Phone: [facility] 12-14-2020 Pfizer Purple Cap SARS-CoV-2 Vaccination Generic Provider [facility] 07-24-2020 influenza, injectabl e, quadrivalent, preservative free Generic Provider [facility] 08-04-2019 Influenza, injectabl e, Madin Ostrander Canine Kidney, preservative free, quadrivalent Generic Provider [facility] 02-25-2019 pneumococcal conjuga te vaccine, 13 valent Generic Provider [facility] 08-05-2018 Influenza, injectabl e, Madin Hemalatha Canine Kidney, preservative free, quadrivalent Generic Provider [facility] 08-14-2017 Influenza, injectabl e, Madin Ostrander Canine Kidney, preservative free, quadrivalent Generic Provider [facility] 08-15-2016 influenza, injectabl e, quadrivalent, preservative free Generic Provider [facility] 08-26-2015 influenza, seasonal, injectable, preservative free Generic Provider [facility] 09-23-2009 novel [id number], preservative-free, injectable Generic Provider [facility] 01-20-2004 hepatitis B vaccine, adult dosage Generic Provider [facility] 11-02-2003 hepatitis B vaccine, adult dosage Generic Provider [facility] 09-21-2003 hepatitis B vaccine, adult dosage Generic Provider [facility] Payers Date Payer Category Payer Self-pay [id number] 2014 Private Health Insurance [id number] 2014 Unknown MMO MMO SUPERMED PLUS [id number] 2014-Present [phone] [address] [place] [address] PPO [id number] 2014 Unknown [id number] [id number] .[id number] 1964 Unknown [id number] 2.16.840.1.936218.3.579.2.3 56 1964 Unknown [id number] 2.16.840.1.644794.3.579.2.3 56 1964 Unknown [id number] 2.16.840.1.774618.3.579.2.3 56 1964 Unknown [id number] 2.16.840.1.303969.3.579.2.3 1964 Unknown [id number] 2.16.840.1.341546.3.579.2.3 56 1964 Unknown [id number] 2.16.840.1.687893.3.579.2.3 56 1964 Unknown [id number] 2.16.840.1.605733.3.579.2.3 56 1964 Unknown [id number] 2.16.840.1.605256.3.579.2.3 56 1964 Unknown [id number] 2.16.840.1.536369.3.579.2.3 56 1964 Unknown [id number] 2.16.840.1.482632.3.579.2.3 56 1964 Unknown [id number] 2.16.840.1.917115.3.579.2.3 56 1964 Unknown [id number] 2.16.840.1.270657.3.579.2.3 56 1964 Unknown [id number] 2.16.840.1.444182.3.579.2.3 56 1964 Unknown [id number] 2.16.840.1.577581.3.579.2.3 56 1964 Unknown [id number] 2.16.840.1.358879.3.579.2.5 93 1964 Unknown [id number] 2.16.840.1.948996.3.579.2.5 93 1964 Unknown [id number] 2.16.840.1.777807.3.579.2.5 93 1964 Unknown [id number] 2.16.840.1.806205.3.579.2.5 93 1964 Unknown [id number] 2.16.840.1.464847.3.579.2.5 93 1964 Unknown [id number] 2.16.840.1.084230.3.579.2.7 27 1964 Unknown [id number] 2.16.840.1.186393.3.579.2.1 259 1964 Unknown [id number] 2.16.840.1.384411.3.579.2.1 259 1964 Unknown [id number] 2.16.840.1.132570.3.579.2.1 259 1964 Unknown [id number] 2.16.840.1.284900.3.579.2.1 259 1964 Unknown [id number] 2.16.840.1.271672.3.579.2.1 259 1964 Unknown [id number] 2.16.840.1.189135.3.579.2.1 259 1964 Unknown [id number] 2.16.840.1.185898.3.579.2.1 259 1964 Unknown [id number] 2.16.840.1.404887.3.579.2.1 259 1964 Unknown [id number] 2.16.840.1.066694.3.579.2.1 259 1964 Unknown [id number] 2.16.840.1.536207.3.579.2.1 259 1964 Unknown [id number] 2.16.840.1.387268.3.579.2.1 259 1964 Unknown [id number] 2.16.840.1.020283.3.579.2.1 259 1964 Unknown [id number] 2.16.840.1.243918.3.579.2.1 259 1964 Unknown [id number] 2.16.840.1.931912.3.579.2.1 259 1964 Unknown [id number] 2.16.840.1.121630.3.579.2.1 259 1964 Unknown [id number] 2.16.840.1.045533.3.579.2.1 259 1964 Unknown [id number] 2.16.840.1.550968.3.579.2.1 259 1964 Unknown [id number] 2.16.840.1.552543.3.579.2.1 259 1964 Unknown [id number] 2.16.840.1.992417.3.579.2.1 259 1964 Unknown [id number] 2.16.840.1.717607.3.579.2.1 259 1959 Self-pay [id number] 1959 Unknown [id number] Unknown [id number] 2.16.840.1.094597.3.579.2.2 43 Unknown [id number] 2.16.840.1.560298.3.579.2.2 43 Unknown [id number] 2.16.840.1.448907.3.579.2.5 93 Unknown [id number] 2.16.840.1.750234.3.579.2.5 31 Unknown [id number] 2.16.840.1.578313.3.579.2.5 31 Social History Date Type Detail Facility Start: 04-16-2022 End: 04-17-2023 Tobacco smoking status NHIS Never smoked tobacco [facility] Start: 12-05-2021 End: 12-30-2024 Alcohol intake Current drinker of alcohol (finding) [facility] Start: 1965 Sex Assigned At Not on file [facility] Start: 06-17-2023 End: 02-02-2025 Sex Assigned At [facility] Start: 05-27-2022 End: 06-06-2022 Exposure to SARS-CoV-2 (event) Not sure [facility] Start: 1965 Sex Assigned At Male F [facility] Start: 06-03-2018 End: 12-30-2024 Tobacco use and exposure Smokeless tobacco non-user [facility] Tobacco smoking status No Smokin g Status Entered [facility] Start: 06-17-2023 End: 02-02-2025 History of Social function [facility] National Score (1-10 0), lower number is lower risk 86 [facility] Start: 03-19-2023 End: 12-30-2024 Tobacco smoking status NHIS Ex-smoker [facility] End: 11-03-2018 History of tobacco use Current smoker [facility] End: 11-03-2018 History of tobacco use Cigarette Smoker [facility] Start: 03-31-2023 Alcohol Comment coffee: more t ybarra 4 cups per day; soda [facility] Do you belong to any clubs or organizations such as gnosticist groups, unions, fraternal or athletic groups, or school groups? No [facility] Are you now , , , , never or living with a partner? [facility] Do you feel stress - tense, restless, nervous, or anxious, or unable to sleep at night because your mind is troubled all the time - these days [OSQ] Only a little [facility] Start: 12-30-2024 Tobacco Comment 1 ppd x 20 yea rs former smoker [facility] Sex Male (finding) [facility] Medical Equipment Procedure Code Equipment Code Equipment Origin al Text Equipment Identifier Dates [id number], [id number], [id number], [id number] Start: 01-02-2005 End: 03-17-2024 Comment on above: Test 4 times daily uses 6-8 a day chekc 6-8 timea a da y(insulin pump) uses 6-8 a day. Insu mer pump. Unknown Unknown 06/26/23 Non Biological Unknown FDA Start: 06-26-2023 Functional Status Date Assessment Result Facility 03-31-2025 Patient Health Quest ionnaire 2 item (PHQ-2) [Reported] [facility] 06-05-2023 Functional Status No [facility] 02-28-2015 Are you deaf, or do you have serious difficulty hearing No 02/28/2015 7:24 PM EDT Patricia Best LPN No [facility] 02-28-2015 Are you blind, or do you have serious difficulty seeing, even when wearing glasses No 02/28/2015 7:24 PM EDT Patricia Best LPN No [facility] 02-28-2015 Do you have serious difficulty walking or climbing stairs No 02/28/2015 7:24 PM EDT Patricia Best LPN No [facility] 02-28-2015 Do you have difficul ty dressing or bathing No 02/28/2015 7:24 PM EDT Patricia Best LPN No [facility] 02-28-2015 Because of a physica l, mental, or emotional condition, do you have difficulty doing errands alone such as visiting a physician's office or shopping No 02/28/2015 7:24 PM EDT Patricia Best LPN No [facility] Mental Status Date Assessment Result Facility 02-28-2015 Because of a physica l, mental, or emotional condition, do you have serious difficulty concentrating, remembering, or making decisions No 02/28/2015 7:24 PM EDPatricia Reyes LPN No [facility] Clinical Notes 02-13-2016 to 05-16-2025 Telephone Encounter - Michael Hearn RN - 05/16/2025 2:46 PM EDTTelephone Encounter - Michael Hearn RN - 05/16/2025 2:46 PM EDTPDebbie pascual RT(R) - 05/05/2025 10:20 AM EDT Note Date & Type Note Facility 05-16-2025 Telephone encounter Note Called [facility] and spoke with lamont. Requested MRI images be sent to us. Lamont informed us that they sent them this morning after completion. [facility] 05-16-2025 Miscellaneous Notes Called [facility] and spoke with lamont. Requested MRI images be sent to us. Lamont informed us that they sent them this morning after completion. Patient called to let Dr Berg know that he completed his MRI today at [facility] [address] in [place]. documented in this encounter [facility] 05-16-2025 Telephone encounter Note Patient called to let Dr Berg know that he completed his MRI today at [facility] [address] in [place]. [facility] 05-05-2025 History of Presen t illness Narrative Radiology Service Progress Note PATIENT NAME: Jacquie Lantigua DATE OF SERVICE: May 05, 2025 TIME: 10:30 AM PATIENT IDENTITY VERIFICATION COMPLETED USING TWO (2) IDENTIFIERS: Name and Date of confirmed by patient verbally and Name and Date of confirmed by identification band. FALL SCREENING: Has the patient had 2 falls in the last year or 1 fall with injury or currently using an Ambulatory Assistive Device (Walker, Cane, Wheelchair, Crutches, etc.)? No PATIENT GENDER DATA: Assigned male at PATIENT RELEVANT IMPLANT DATA REVIEWED: Yes PATIENT PRESENTS WITH AN IMPLANTABLE OR ATTACHED PACKAGE DYE STAND LOADER: No RADIOLOGY DEPARTMENT: General X-ray: Exam(s) Completed: Spine X-Ray(s): Lumbar AP / LAT / L5-S1 / FLEX-EXT PERIPHERAL IV DATA: Not applicable SIGNED BY: RT Joselin([place]) May 05, 2025 10:30 AM documented in this encounter [facility] 05-05-2025 Note HNO ID: [id number] Author: DEBBIE BARRIOS RT([place]) Service: Radiology Author Type: Technologist Type: Progress Notes Filed: 05/05/2025 10:31 Note Text: Radiology Service Progress Note PATIENT NAME: Jacquie Lantigua DATE OF SERVICE: May 05, 2025 TIME: 10:30 AM PATIENT IDENTITY VERIFICATION COMPLETED USING TWO (2) IDENTIFIERS: Name and Date of confirmed by patient verbally and Name and Date of confirmed by identification band. FALL SCREENING: Has the patient had 2 falls in the last year or 1 fall with injury or currently using an Ambulatory Assistive Device (Walker, Cane, Wheelchair, Crutches, etc.)? No PATIENT GENDER DATA: Assigned male at PATIENT RELEVANT IMPLANT DATA REVIEWED: Yes PATIENT PRESENTS WITH AN IMPLANTABLE OR ATTACHED PACKAGE DYE STAND LOADER: No RADIOLOGY DEPARTMENT: General X-ray: Exam(s) Completed: Spine X-Ray(s): Lumbar AP / LAT / L5-S1 / FLEX-EXT PERIPHERAL IV DATA: Not applicable SIGNED BY: RT Joselin([place]) May 05, 2025 10:30 AM [facility] 05-05-2025 Note HNO ID: [id number] Author: MALIHA BERG MD Service: ? Author Type: Physician Type: Progress Notes Filed: 05/05/2025 09:54 Note Text: SPINE SURGERY FOLLOW UP This is an in-person visit. SERVICE DATE: 05/05/2025 SURGERY DATE: 01/12/2025 Jacquie Lantigua is a pleasant 59-year-old gentleman [...] Denied weakness. Denied bowel or bladder dysfunction. During last clinic visit he was doing well overall. He was complaining of back pain and occasional left leg pain. Pain medication and muscle significantly helped. Today he is complaining of recurrence of lower back and left leg pain radiating up to the feet. He is following with a local pain management team. He was on narcotics for long time. Currently completing physical therapy. Known history of diabetes mellitus. Was taking Percocet.recently Percocet was stopped and started him on Journavx 50 mg which is helping. Also taking gabapentin 8 interplay of 3 times a day PAIN EVALUATION 05/05/2025 0935 Pain Level: 9 Pain Location: Buttocks-Left down left leg to ankle Description: Sharp;Shooting;Throbbing Duration Amount of Time: 1 Duration Units: Years Frequency: Continuous Intervention/Comfort measure: Medication;Exercise Pain Radiation: to the left foot/feet Aggravating Factors: Standing, Walking, Walking upstairs, Walking downstairs Alleviating Factors: Medications Pain Ratio: Pain in the leg(s) is greater than in the back ANTIPLATELET OR ANTICOAGULATION STATUS: No Patient Entered Questionnaires 02/02/2025 02/27/2025 Spine Questions Pain Location: Other Other Pain Duration: 1 to 5 years Pain over last 6 months: Every day or nearly every day in the past 6 months Symptoms from neck/cervical spine: No Employment Status: Working now Involved in law suit/legal claim: No PROMIS Score Percentiles 02/02/2025 03/09/2025 04/11/2025 Physical Health Physical Function Percentile 8 12 27* Sleep Percentile 14 Fatigue Percentile 46 Pain Interference Percentile 4 02/02/2025 PROMIS SOCIAL ROLE SCORE Social Role Satisfaction Percentile 14 12/28/2024 04/11/2025 PROMIS Global Health Scale Physical Health Percentile 7 4 Mental Health Percentile 5 5 Patient-reported Percentiles provide an indication of how the patient's score ranks in relation to the general population. Higher percentile rankings indicate better function/quality of life. 50th percentile is the average of the general population and indicates half of respondents had a worse score. Descriptive Summary for PROMIS Physical Function T-score = 44 (Percentile 27) Little difficulty - Walk more than a mile (1.6 km). Little difficulty - Do chores such as vacuuming or yard work. Depression Screenin02/02/2025 PHQ-9 Score 7 02/02/2025 PHQ-9 [...] Antalgic DATA REVIEW [facility] records independently reviewed Images independently reviewed with the patient ASSESSMENT/PLAN Jacquie Lantigua is a pleasant 59-year-old gentleman is here in spine surgery clinic for 3 week postoperative follow-up visit. He underwent left L5-S1 discectomy with root foraminotomy on 01/12/2025. He was evaluated on 08/20/2020 with a history of lower back and left leg pa (more content not included)... [facility] History of Presen t illness Narrative Images from the original note were not included. SPINE SURGERY FOLLOW UP This is an in-person visit. SERVICE DATE: 05/05/2025 SURGERY DATE: 01/12/2025 Jacquie Lantigua is a pleasant 59-year-old gentleman [...] Denied weakness. Denied bowel or bladder dysfunction. During last clinic visit he was doing well overall. He was complaining of back pain and occasional left leg pain. Pain medication and muscle significantly helped. Today he is complaining of recurrence of lower back and left leg pain radiating up to the feet. He is following with a local pain management team. He was on narcotics for long time. Currently completing physical therapy. Known history of diabetes mellitus. Was taking Percocet.recently Percocet was stopped and started him on Journavx 50 mg which is helping. Also taking gabapentin 8 interplay of 3 times a day PAIN EVALUATION 05/05/2025 0935 Pain Level: 9 Pain Location: Buttocks-Left down left leg to ankle Description: Sharp;Shooting;Throbbing Duration Amount of Time: 1 Duration Units: Years Frequency: Continuous Intervention/Comfort measure: Medication;Exercise Pain Radiation: to the left foot/feet Aggravating Factors: Standing, Walking, Walking upstairs, Walking downstairs Alleviating Factors: Medications Pain Ratio: Pain in the leg(s) is greater than in the back ANTIPLATELET OR ANTICOAGULATION STATUS: No Patient Entered Questionnaires 02/02/2025 02/27/2025 Spine Questions Pain Location: Other Other Pain Duration: 1 to 5 years Pain over last 6 months: Every day or nearly every day in the past 6 months Symptoms from neck/cervical spine: No Employment Status: Working now Involved in law suit/legal claim: No PROMIS Score Percentiles 02/02/2025 03/09/2025 04/11/2025 Physical Health Physical Function Percentile 8 12 27* Sleep Percentile 14 Fatigue Percentile 46 Pain Interference Percentile 4 02/02/2025 PROMIS SOCIAL ROLE SCORE Social Role Satisfaction Percentile 14 12/28/2024 04/11/2025 PROMIS Global Health Scale Physical Health Percentile 7 4 Mental Health Percentile 5 5 Patient-reported Percentiles provide an indication of how the patient's score ranks in relation to the general population. Higher percentile rankings indicate better function/quality of life. 50th percentile is the average of the general population and indicates half of respondents had a worse score. Descriptive Summary for PROMIS Physical Function T-score = 44 (Percentile 27) Little difficulty - Walk more than a mile (1.6 km). Little difficulty - Do chores such as vacuuming or yard work. Depression Screenin02/02/2025 PHQ-9 Score 7 02/02/2025 PHQ-9 [...] BULK: Normal and symmetrical in the upper & lower extremities. MUSCLE TONE: Normal. MOTOR: 5/5 in all muscle groups. SENSORY: Normal sensory exam GAIT: Antalgic DATA REVIEW [facility] records independently reviewed Images independently reviewed with the patient ASSESSMENT/PLAN Jacquie Lantigua is a pleasant 59-year-old [...] Denied weakness. Denied bowel or bladder dysfunction. During last clinic visit he was doing well overall. He was complaining of back pain and occasional left leg pain. Pain medication and muscle significantly helped. Today he is complaining of recurrence of lower back and left leg pain radiating up to the feet. He is following with a local pain management team. He was on narcotics for long time. Currently completing physical therapy. Known history of diabetes mellitus. Was taking Percocet.recently Percocet was stopped and started him on Journavx 50 mg which is helping. Also taking gabapentin 8 interplay of 3 times a day Neurological examination showed well-healed lumbar incision. No signs of infection. No motor weakness. Antalgic gait. Discussed clinical finding. Discussed treatment option for recurrent left leg pain which includes continued conservative treatment with back exercise, physical therapy, pain medication, muscle relaxers, left L5-S1 transferral epidural injection. Some of his pain is chronic in nature. Recommended to follow-up with the pain management for chronic pain He is already scheduled for MRI lumbar spine in an outside facility. Recommended to complete MRI lumbar spine. We will review once the imaging is completed. X-ray lumbar spine AP, lateral, flexion-extension ordered for today. If MRI shows no recurrent disc herniation, he needs to follow-up with the pain management for chronic pain Follow-up in spine surgery clinic after completion of MRI lumbar spine The majority of the visit was spent counseling and/or coordinating care for the patient. The patient was counseled regarding lower back pain, left leg pain, left leg tightness, lumbar disc herniation, recurrent disc herniation, MRI lumbar spine, pain medications, chronic. Total face to face time was 20 minutes. SIGNATURE: Maliha Berg MD PATIENT NAME: Jacquie Lantigua DATE: May 05, 2025 TIME: 9:36 AM PAGER: documented in this encounter [facility] 04-27-2025 History of Presen t illness Narrative Program_ID:[id number] Access Code: [email or web address] URL: [email or web address] Date: 04-27-2025 Prepared By: Chery Land Program Notes self massage to left gluteal with over the counter thera-gun, 2-3 mins as needed Exercises - Active Straight Leg Raise with Quad Set - 1-2 x daily - 7 x weekly - 1 sets - 10-15 reps - Supine Lower Trunk Rotation - 1-2 x daily - 7 x weekly - 1 sets - 10 reps - Sidelying Hip Abduction - 1-2 [...] x weekly - sets - 3 reps - Standing Hip Abduction with Resistance at Ankles and Counter Support - 1 x daily - 7 x weekly - 1-2 sets - 10-15 reps - Hooklying Sequential Leg March and Lower - 1 x daily - 7 x weekly - 1-2 sets - 10-15 reps - Quadruped Alternating Leg Extensions - 1 x daily - 7 x weekly - 1-2 sets - 10-15 reps - Marching Bridge - 1 x daily - 7 x weekly - 1 sets - 10 reps Episode Visit Count: 5 Therapist That Will Accept/Oversee The Plan Of Care: Chery Land Start of Care Date: 03/01/25 Onset Date: 11/03/23 Patient Identified by Name and Date of : Yes REHABILITATION AND SPORTS THERAPY PHYSICAL THERAPY TREATMENT NOTE ASSESSMENT: Jacquie Lantigua tolerated the session with expected muscle soreness. He demonstrated improvements in tolerance to strengthening exercises this visit. Tolerated all well today. Continues to have low back and leg pain. The patient will continue to benefit from ongoing skilled physical therapy to progress toward set goals. PLAN FOR NEXT VISIT: re-assess SUBJECTIVE: Patient reports that he is about the same. Still has to take a bunch of pills to get through the day. Notes yesterday forgot to take an afternoon dose and was in a lot of pain, had a lory horse type feeling. Exercises are going well, has been doing them. The one with the band out to the side still bothers him. Pain: Pain Pain Level: 3 (post oxy and gabapentin) Pain Location: Low Back/Lumbar Spine - Left, Leg - Left Description: Aching, Dull Frequency: Intermittent Post Treatment Pain Post Treatment Pain Level: No Change OBJECTIVE MEASURES WITH LEVEL OF FUNCTION: Patient ambulated into the clinic independently. Forward flexed trunk posture, antalgic gait, leaning to right lower extremity. Increased knee flexion bilaterally during stance phase. Able to perform standing hip band exercises in upright position TREATMENT: Therapeutic Exercise: 1: Nu Step x 5' discussing symptoms, discussing work activities, discussing HEP 2: Standing hip flexion L2 Tb x 20 reps each LE 3: standing L2 TB hip abduction x 15 reps each LE 4: standing L2 TB hip extension x 15 reps each LE 5: bridges x 15 reps 6: *Bridge with january x 10 reps (cues for breath) 7: LTR x 10 reps each side Skilled Intervention: Patient was educated in proper [...] Patient education as noted. Neuromuscular Re-Education: 1: hooklying hip flexion isometric alt UE/LE x 5 sec hold x 20 reps (cues for breath, cues to hold for 5 seconds) 2: *Quadruped alt LE lift x 20 reps (cues for neutral lumar spine) 4: Hooklying TrA contraction with R LE lift, L LE lift, R LE lower, L LE lower x 10 reps (cues for breath, cues for performance) 5: CC lateral step outs 10# x 5 reps each side Skilled Intervention: Skilled judgment used to assess appropriate program for balance and coordination activity. Education in proprioceptive/kinesthetic awareness during standing and dynamic activities. Reviewed and educated patient on additions/changes for home program as noted above with an (*). Correct performance of home program was facilitated with verbal, visual, and tactile cueing. Patient education as noted. Billing Therapeutic Exercise Treatment Minutes: 22 Neuromuscular Re-Education Treatment Minutes: 17 Skilled Treatment Time Minutes (timed and untimed codes): 39 Total Session Time (minutes): 39 Session Start Time : 1710 Session Stop Time : 1749 Chery Land PT, DPT documented in this encounter [facility] 04-27-2025 Note HNO ID: [id number] Author: CHERY LAND PT Service: ? Author Type: Physical Therapist Type: Progress Notes Filed: 04/27/2025 17:52 Note Text: Episode Visit Count: 5 Therapist That Will Accept/Oversee The Plan Of Care: Chery Land Start of Care Date: 03/01/25 Onset Date: 11/03/23 Patient Identified by Name and Date of : Yes REHABILITATION AND SPORTS THERAPY PHYSICAL THERAPY TREATMENT NOTE ASSESSMENT: Jacquie Lantigua tolerated the session with expected muscle soreness. He demonstrated improvements in tolerance to strengthening exercises this visit. Tolerated all well today. Continues to have low back and leg pain. The patient will continue to benefit from ongoing skilled physical therapy to progress toward set goals. PLAN FOR NEXT VISIT: re-assess SUBJECTIVE: Patient reports that he is about the same. Still has to take a bunch of pills to get through the day. Notes yesterday forgot to take an afternoon dose and was in a lot of pain, had a lory horse type feeling. Exercises are going well, has been doing them. The one with the band out to the side still bothers him. Pain: Pain Pain Level: 3 (post oxy and gabapentin) Pain Location: Low Back/Lumbar Spine - Left, Leg - Left Description: Aching, Dull Frequency: Intermittent Post Treatment Pain Post Treatment Pain Level: No Change OBJECTIVE MEASURES WITH LEVEL OF FUNCTION: Patient ambulated into the clinic independently. Forward flexed trunk posture, antalgic gait, leaning to right lower extremity. Increased knee flexion bilaterally during stance phase. Able to perform standing hip band exercises in upright position TREATMENT: Therapeutic Exercise: 1: Nu Step x 5' discussing symptoms, discussing work activities, discussing HEP 2: Standing hip flexion L2 Tb x 20 reps each LE 3: standing L2 TB hip abduction x 15 reps each LE 4: standing L2 TB hip extension x 15 reps each LE 5: bridges x 15 reps 6: *Bridge with march x 10 reps (cues for breath) 7: LTR x 10 reps each side Skilled Intervention: Patient was educated in proper [...] Patient education as noted. Neuromuscular Re-Education: 1: hooklying hip flexion isometric alt UE/LE x 5 sec hold x 20 reps (cues for breath, cues to hold for 5 seconds) 2: *Quadruped alt LE lift x 20 reps (cues for neutral lumar spine) 4: Hooklying TrA contraction with R LE lift, L LE lift, R LE lower, L LE lower x 10 reps (cues for breath, cues for performance) 5: CC lateral step outs 10# x 5 reps each side Skilled Intervention: Skilled judgment used to assess appropriate program for balance and coordination activity. Education in proprioceptive/kinesthetic awareness during standing and dynamic activities. Reviewed and educated patient on additions/changes for home program as noted above with an (*). Correct performance of home program was facilitated with verbal, visual, and tactile cueing. Patient education as noted. Billing Therapeutic Exercise Treatment Minutes: 22 Neuromuscular Re-Education Treatment Minutes: 17 Skilled Treatment Time Minutes (timed and untimed codes): 39 Total Session Time (minutes): 39 Session Start Time : 1710 Session Stop Time : 1749 Chery Land PT, DPT [facility] 04-25-2025 Telephone encounter Note Patient is calling in due to he needs a refill on his oxycodone 5/-325 mg one tablet every six hours for pain PRN [facility] 04-25-2025 Miscellaneous Notes Patient is calling in due to he needs a refill on his oxycodone 5/-325 mg one tablet every six hours for pain PRN documented in this encounter [facility] 04-20-2025 Evaluation note Diagnosis Onset Date Resolution Arthritis of lumbosacral spine acute April 20, 2025 3:52pm Lumbar radiculopathy acute April 20, 2025 3:52pm Other chronic pain acute April 032024 3:52pm Post laminectomy syndrome acute April 20, 2025 3:52pm [facility] Work Phone: 1(993) 505-129106-18-2025 Evaluation note* Diagnosis Onset Date Resolution Status Admit Date Arthritis of lumbosacral spine acute April 20, 2025 3:52pm Lumbar radiculopathy acute April 20, 2025 3:52pm Other chronic pain acute April 032024 3:52pm Post laminectomy syndrome acute April 20, 2025 3:52pm Arthritis of lumbosacral spine acute May 23, 2025 3:19pm Lumbar radiculopathy acute May 23, 2025 3:19pm Other chronic pain acute May 042024 3:19pm Post laminectomy syndrome acute May 23, 2025 3:19pm [facility] Work Phone: 1(161) 743-436806-09-2025 History of Present illness Narrative* Chery Land PT - 04/11/2025 5:54 PM EDT Program_ID:[id number] Access Code: [email or web address] URL: [email or web address] Date: 04-11-2025 Prepared By: Chery Land Program Notes self [...] x weekly - sets - 3 reps - Standing Hip Abduction with Resistance at Ankles and Counter Support - 1 x daily - 7 x weekly - 1-2 sets - 10-15 reps - Hooklying Sequential Leg March and Lower - 1 x daily - 7 x weekly - 1-2 sets - 10-15 reps * Chery Land, PT - 04/11/2025 5:10 PM EDT Images from the original note were not included. Episode Visit Count: 4 Therapist That Will Accept/Oversee The Plan Of Care: Chery Land Start of Care Date: 03/01/25 Onset Date: 11/03/23 Patient Identified by Name and Date of : Yes REHABILITATION AND SPORTS THERAPY PHYSICAL THERAPY PROGRESS REPORT PLAN OF CARE UPDATE: Assessment: Jacquie Lantigua demonstrates minimal improvement in rising from a chair, standing, walking, bending,lifting, physical activities, and working. The patient has progressed toward goals. Patient continues to present with impairments in ADL's, balance, flexibility, gait, overall function, range of motion, strength, symptom management, and tissue tenderness that interfere with rising from a chair, standing, walking, stair negotiation, bending, lifting, physical activities . Current prognosis is Gooddue to: current objective clinical presentation . The patient will benefit from continued skilled therapy services to meet the updated goals for this plan of care as noted below. Goals for Episode of Care: established 03/01/25 Updated 04/11/25 Independent in home exercises. Ongoing Patient will decrease pain rating by 2 points to meet minimal clinical important difference for numeric pain rating scale. Ongoing Restore pain-free lumbar ROM to min restriction to allow for improved ability to perform functionalactivities and activities of daily living Ongoing Stand / Walk 1 hour without pain/symptoms. Ongoing Patient will be able to tolerate functional activities for 1 hour without increased symptoms. Ongoing Patient will increase strength of bilateral LEs to 4+/5 to allow for improve gait mechanics/gait pattern, improve ability to complete ADLs, and functional activities. Ongoing Patient will increase flexibility of left hamstring and bilateral quads and hip flexors to min restriction to improve ability to maintain proper posture, improve mechanics, and decrease pain. Ongoing Time Frame for Goals and Treatment : 06/10/25 Planned Interventions, Frequency, and Duration: 1x every other week, 8 weeks Total Number of Visits Planned: 4 Patient to be seen for Therapeutic exercise (07026), Neuromuscular re-education (39483), Manual therapy (42290), Therapeutic activities (47754), Self-long term management (18393), Gait Training (44145), Patient/Family/Caregiver Education PLAN FOR NEXT VISIT: Review core exercises, progress as tolerated SUBJECTIVE: Patient reports that he is more sore today, it was his first day back to work in a few weeks. Still taking gabapentin and the oxy. Has to take it every 5 hours because the pains tarts again about 4-5 hours. Pain is in his left buttock and left lower back. Does have some pain in the sideof his leg as well. Functional Limitations: rising from a chair, standing, walking, stair negotiation, bending, lifting, physical activities Pain: Pain Pain Level: 8 Pain Location: Low Back/Lumbar Spine - Left, Leg - Left Description: Aching, Dull, Tightness Frequency: Intermittent Post Treatment Pain Post Treatment Pain Level: No Change PROMIS Scales 04/11/2025 03/09/2025 02/27/2025 Higher is Better Phys Func - T Score 44 (mild dysfunction) 38 (moderate dysfunction) Phys Func - Percentile 27 12 Self-Eff Symptom - T Score 39 (Low) 35 (Low) Self-Eff Symptom - Percentile 14 7 02/02/2025 Lower is Better Pain Interference [...] / Alignment Posture: Forward head, Rounded shoulders Lumbar Spine AROM Lumbar Flexion: Minimal limitation [...] Hip Extension: 4+/5 L Hip Flexion (L2): 4+/5 L Hip ABduction: 4-/5 L Knee Extension (L3): 4+/5 L Knee Flexion: 4+/5 L Ankle Dorsiflexion (L4): 4/5 Gait Gait: Independent Gait Deviations: General Deviations General Deviations/Observations: Flexed trunk posture, Lateral sway increased TREATMENT: Therapeutic Exercise: 1: Nu Step x 5' discussing back pain, discussing continued symptoms, discussing HEP and frequency, discussing activities that still cause pain 2: SLR x 20 reps each LE 3: *standing L2 TB hip abduction x 15 reps each LE 4: LTR x 10 reps each side 5: bridges x 15 reps (cues for foot position) 6: Goal/Skill re-check x 10' Skilled Intervention: Patient was educated in proper exercise technique and purpose for exercises. Reviewed and educated patient on additions/changes for home exercise program as above (*). Skilled judgment was used in selection of appropriate interventions. Correct performance of therapeutic exercises was facilitated with verbal, visual, and tactile cuing. Educated patient on rationale for performing exercises in regards to decreasing fatigue , improvingfitness, increase ease of ADL, and ROM and function . Patient education as noted. Neuromuscular Re-Education: 1: hooklying hip flexion isometric alt UE/LE x 5 sec hold x 20 reps (cues for breath, cues to hold for 5 seconds) 2: Quadruped alt LE lift x 20 reps (foam roller across back to keep lumbar spine neutral) 3: Hooklying TrA contraction x 5 sec hold x 15 reps 4: *Hooklying TrA contraction with R LE lift, L LE lift, R LE lower, L LE lower x 10 reps Skilled Intervention: Skilled judgment used to assess appropriate program for balance and coordination activity. Education in proprioceptive/kinesthetic awareness during standing and dynamic activities. Reviewed and educated patient on additions/changes for home program as noted above with an (*). Correct performance of home program was facilitated with verbal, visual, and tactile cueing. Patient education as noted. Billing Therapeutic Exercise Treatment Minutes: 25 Neuromuscular Re-Education Treatment Minutes: 15 Skilled Treatment Time Minutes (timed and untimed codes): 40 Total Session Time (minutes): 40 Session Start Time : 1716 Session Stop Time : 1756 Chery Land PT, DPT documented in this encounter[facility] NoteHNO ID: [id number] Author: CHERY LAND PT Service: ? Author Type: Physical Therapist Type: Progress Notes Filed: 04/11/2025 18:01 Note Text: Episode Visit Count: 4 Therapist That Will Accept/Oversee The Plan Of Care: Chery Land Start of Care Date: 03/01/25 Onset Date: 11/03/23 Patient Identified by Name and Date of : Yes REHABILITATION AND SPORTS THERAPY PHYSICAL THERAPY PROGRESS REPORT PLAN OF CARE UPDATE: Assessment: Jacquie Lantigua demonstrates minimal improvement in rising from a chair, standing, walking, bending, lifting, physical activities, and working. The patient has progressed toward goals. Patient continues to present with impairments in ADL's, balance, flexibility, gait, overall function, range of motion, strength, symptom management, and tissue tenderness that interfere with rising from a chair, standing, walking, stair negotiation, bending, lifting, physical activities . Current prognosis is Good due to: current objective clinical presentation . The patient will benefit from continued skilled therapy services to meet the updated goals for this plan of care as noted below. Goals for Episode of Care: established 03/01/25 Updated 04/11/25 Independent in home exercises. Ongoing Patient will decrease pain rating by 2 points to meet minimal clinical important difference for numeric pain rating scale. Ongoing Restore pain-free lumbar ROM to min restriction to allow for improved ability to perform functional activities and activities of daily living Ongoing Stand / Walk 1 hour without pain/symptoms. Ongoing Patient will be able to tolerate functional activities for 1 hour without increased symptoms. Ongoing Patient will increase strength of bilateral LEs to 4+/5 to allow for improve gait mechanics/gait pattern, improve ability to complete ADLs, and functional activities. Ongoing Patient will increase flexibility of left hamstring and bilateral quads and hip flexors to min restriction to improve ability to maintain proper posture, improve mechanics, and decrease pain. Ongoing Time Frame for Goals and Treatment : 06/10/25 Planned Interventions, Frequency, and Duration: 1x every other week, 8 weeks Total Number of Visits Planned: 4 Patient to be seen for Therapeutic exercise (31210), Neuromuscular re-education (84306), Manual therapy (02390), Therapeutic activities (74136), Self-long term management (50166), Gait Training (93711), Patient/Family/Caregiver Education PLAN FOR NEXT VISIT: Review core exercises, progress as tolerated SUBJECTIVE: Patient reports that he is more sore today, it was his first day back to work in a few weeks. Still taking gabapentin and the oxy. Has to take it every 5 hours because the pains tarts again about 4-5 hours. Pain is in his left buttock and left lower back. Does have some pain in the side of his leg as well. Functional Limitations: rising from a chair, standing, walking, stair negotiation, bending, lifting, physical activities Pain: Pain Pain Level: 8 Pain Location: Low Back/Lumbar Spine - Left, Leg - Left Description: Aching, Dull, Tightness Frequency: Intermittent Post Treatment Pain Post Treatment Pain Level: No Change PROMIS Scales 04/11/2025 03/09/2025 02/27/2025 Higher is Better Phys Func - T Score 44 (mild dysfunction) 38 (moderate dysfunction) Phys Func - Percentile 27 12 Self-Eff Symptom - T Score 39 (Low) 35 (Low) Self-Eff Symptom - Percentile 14 7 02/02/2025 Lower is Better Pain Interference [...] / Alignment Posture: Forward head, Rounded shoulders Lumbar Spine AROM Lumbar Flexion: Minimal limitation [...] Hip Extension: 4+/5 L Hip Flexion (L2): 4+/5 L Hip AB (more content not included)...[facility]06-02-[facility] Telephone encounter Note* Telephone Encounter - Amari Blue RN - 04/04/2025 9:15 AM EDT OV 05/05 [facility]06-02-[facility] Miscellaneous Notes* Telephone Encounter - Amari Blue RN - 04/04/2025 9:15 AM EDT OV 7/3 * Telephone Encounter - Juliet Williamson - 04/01/2025 1:40 PM EDT [place] report XR hip LT 2V w/pelvis scanned to Epic documented in this encounter[facility]05-[facility] Telephone encounter Note * Telephone Encounter - Juliet Williamson - 04/01/2025 1:40 PM EDT [place] report XR hip LT 2V w/pelvis scanned to Epic [facility]05-[facility] History of Present illness Narrative* Mikael Araya DO - 03/31/2025 3:00 PM EDT Images from the original note were not included. SUBJECTIVE: Jacquie Lantigua is a 59 y.o. male presents with chief complaint of Hip Pain. Pt presents for hip/sciatic pain in his left hip. Pt has had back surgery and this did not help. Onset just over a year. Pt notes that his medication is not helping. Pt would like to discuss having his nerve endings burned. Review of Systems: Review of Systems Problem List: Patient Active Problem List Diagnosis Asthma Eustachian tube dysfunction Gastroesophageal reflux disease Hypertension (CMS/HCC) Hypertriglyceridemia (CMS/HCC) Type 1 diabetes mellitus without complication Ventricular premature contractions Anxiety Background diabetic retinopathy (CMS/HCC) Diabetes mellitus (CMS/HCC) History of hypothyroidism Hypopotassemia Impingement syndrome of shoulder region Impotence of organic origin Internal derangement of right shoulder Shoulder joint pain Major depressive disorder (CMS/HCC) Neuropathy Abnormal MRI, lumbar spine Colon cancer screening Acquired hypothyroidism (CMS/HCC) Past Medical History: Past Medical History: Diagnosis Date Allergic rhinitis 03/19/2023 Allergies Arthritis Asthma Bronchitis Cellulitis 09/26/2021 Chicken pox Chronic sinus infection Depression ([facility]) Deviated septum Diabetes ([facility]) Elevated white blood cell count, unspecified ETD (eustachian tube dysfunction) GERD (gastroesophageal reflux disease) Granuloma annulare Hyperlipidemia ([facility]) Hypertension ([facility]) Hypertriglyceridemia ([facility]) 03/19/2023 Lipoma of right shoulder Measles Mumps PVC (pulmonary venous congestion) Rotator cuff tear Thoracic disc disorder Thyroid disease ([facility]) Visit for TB skin test 09/2016 Family History: Family History Problem Relation Name Age of Onset Glaucoma Mother Hypertension Mother Stomach cancer Mother Stroke Father Hypertension Father Dementia Father No Known Problems Sister No Known Problems Brother Melanoma Neg Hx Macular degeneration Neg Hx Allergies: Allergies Allergen Reactions Adalimumab Other Reaction(s): chest pain, cough Methotrexate Unknown Red Dye #40 (Allura Red) Unknown Sulfamethoxazole Other Reaction(s): Unknown Reaction Sulfamethoxazole-Trimethoprim Unknown Trimethoprim Other Reaction(s): Unknown Reaction Surgical History: Past Surgical History: Procedure Laterality Date COLONOSCOPY 2015 LIPOMA RESECTION 05/26/2019 Excision right neck/ shoulder lipoma w/ AVVargas OTHER SURGICAL HISTORY 05/24/2022 Excision of Right forearm lump [place] EXC SKIN BENIG >4 CM FACE,FACIAL SINUS SURGERY 06/26/2023 pansinusectomy, septoplasty, Dr. Cueto TONSILLECTOMY Social History: Social Drivers of Health Tobacco Use: Medium Risk (02/14/2025) Patient History Smoking Tobacco Use: Former Smokeless Tobacco Use: Never Passive Exposure: Not on file Alcohol Use: Patient Declined (01/07/2024) AUDIT-C Frequency of Alcohol Consumption: Patient declined Average Number of Drinks: Patient declined Frequency of Binge Drinking: Patient declined Financial Resource Strain: Patient Declined (01/07/2024) Overall Financial Resource Strain (CARDIA) Difficulty of Paying Living Expenses: Patient declined Food Insecurity: Patient Declined (01/07/2024) Hunger Vital Sign Worried About Running Out of Food in the Last Year: Patient declined Ran Out of Food in the Last Year: Patient declined Transportation Needs: No Transportation Needs (01/07/2024) PRAPARE - Transportation Lack of Transportation (Medical): No Lack of Transportation (Non-Medical): No Physical Activity: Sufficiently Active (01/07/2024) Exercise Vital Sign Days of Exercise per Week: 6 days Minutes of Exercise per Session: 90 min Stress: No Stress Concern Present (01/07/2024) [employer] - Occupational Stress Questionnaire Feeling of Stress : Only a little Social Connections: Moderately Isolated (01/07/2024) Social Connection and Isolation Panel [NHANES] Frequency of Communication with Friends and Family: More than three times a week Frequency of Social Gatherings with Friends and Family: More than three times a week Attends Mandaen Services: More than 4 times per year Active Member of Clubs or Organizations: No Attends Club or Organization Meetings: Never Marital Status: Intimate Partner Violence: Not on file Depression: Not at risk (02/02/2025) [facility] PHQ-2 PHQ-2 score: 2 Housing Stability: Patient Declined (01/07/2024) Housing Stability Vital Sign Unable to Pay for Housing in the Last Year: Patient declined Number of Places Lived in the Last Year: Not on file Unstable Housing in the Last Year: Patient declined Health Literacy: Not on file OBJECTIVE: Visit Vitals Smoking Status Former Physical Exam Constitutional: Appearance: Normal appearance. HENT: Head: Normocephalic and atraumatic. Mouth/Throat: Mouth: Mucous membranes are moist. Eyes: Extraocular Movements: Extraocular movements intact. Pupils: Pupils are equal, round, and reactive to light. Cardiovascular: Rate and Rhythm: Normal rate and regular rhythm. Pulses: Normal pulses. Heart sounds: No murmur heard. Pulmonary: Effort: Pulmonary effort is normal. Breath sounds: Normal breath sounds. No wheezing, rhonchi or rales. Abdominal: General: Bowel sounds are normal. Palpations: Abdomen is soft. Tenderness: There is no abdominal tenderness. Musculoskeletal: General: Tenderness present. Skin: General: Skin is warm. Capillary Refill: Capillary refill takes less than 2 seconds. Neurological: General: No focal deficit present. Mental Status: He is alert and oriented to person, place, and time. Sensory: No sensory deficit. Motor: No weakness. Gait: Gait abnormal. Deep Tendon Reflexes: Reflexes normal. Psychiatric: Mood and Affect: Mood normal. Behavior: Behavior normal. No results found for this or any previous visit (from the past 4 weeks). ASSESSMENT AND PLAN: Assessment/Plan Diagnoses and all orders for this visit: Neuropathy Patient advised to return if symptoms worsen and/or persist despite treatment. Pt to do fmla - Ambulatory referral to Pain Medicine; Future - CBC and differential; Future - Comprehensive metabolic panel; Future - Sedimentation rate, automated; Future Primary hypertension ([facility]/HCC) Record Blood Pressures 2-4 times weekly and record. Return with readings at next appointment. Call with readings if sees significant changes - CBC and differential; Future - Comprehensive metabolic panel; Future Lumbosacral radiculopathy at L5 - Ambulatory referral to Pain Medicine; Future - CBC and differential; Future - Comprehensive metabolic panel; Future - Sedimentation rate, automated; Future - oxyCODONE-acetaminophen (Percocet) 5-325 MG tablet; Take 1 tablet by mouth every 6 (six) hours ifneeded for severe pain for up to 5 days Type 1 diabetes mellitus without complication Reviewed labs and/or imaging at today. Will continue current treatment regimen and follow up at next scheduled visit unless problems arise. - CBC and differential; Future - Comprehensive metabolic panel; Future - Sedimentation rate, automated; Future Abnormal MRI, lumbar spine - CBC and differential; Future - Comprehensive metabolic panel; Future - oxyCODONE-acetaminophen (Percocet) 5-325 MG tablet; Take 1 tablet by mouth every 6 (six) hours ifneeded for severe pain for up to 5 days Acquired hypothyroidism ([facility]) Labs ordered today, will follow up when results available - CBC and differential; Future - Comprehensive metabolic panel; Future - TSH; Future - T4, free; Future - T3; Future Updated Medications: I have reviewed and reconciled the history and medication list with the patient today. Current Outpatient Medications: Advair HFA 230-21 MCG/ACT inhaler, USE 2 INHALATIONS TWICE A DAY, Disp: 36 g, Rfl: 3 albuterol HFA (ProAir HFA) 90 mcg/act inhaler, Inhale 2 puffs every 4 (four) hours if needed for shortness of breath or wheezing, Disp: , Rfl: Ascorbic Acid (vitamin C) 1000 MG tablet, Take 1,000 mg by mouth 1 (one) time each day at the same time., Disp: , Rfl: ASPIRIN 81 MG chewable tablet, Chew 81 mg 1 (one) time., Disp: , Rfl: cyclobenzaprine (Flexeril) 10 MG tablet, Take 1 tablet (10 mg) by mouth at bedtime, Disp: , Rfl: famotidine (Pepcid) 20 MG tablet, Take 20 mg by mouth in the morning., Disp: , Rfl: FLUoxetine (PROzac) 40 MG capsule, TAKE 1 CAPSULE DAILY, Disp: 90 capsule, Rfl: 3 fluticasone (Flonase) 50 MCG/ACT nasal spray, Administer 2 sprays into each nostril Daily, Disp: 16g, Rfl: 3 gabapentin (Neurontin) 800 MG tablet, TAKE ONE AND ONE-HALF TABLETS IN THE MORNING AND IN THE EVENING AND BEFORE BEDTIME, Disp: 360 tablet, Rfl: 3 ibuprofen 800 MG tablet, TAKE 1 TABLET THREE TIMES A DAY NEEDED FOR MODERATE PAIN OR MILD PAIN, Disp: 120 tablet, Rfl: 8 Icosapent Ethyl (Vascepa) 1 g capsule, TAKE 2 CAPSULES TWICE A DAY WITH MEALS, Disp: 360 capsule, Rfl: 3 insulin lispro (HumaLOG) 100 UNIT/ML injection, Inject under the skin 3 (three) times a day with meals., Disp: , Rfl: levothyroxine (Synthroid, Levoxyl) 50 MCG tablet, TAKE 2 TABLETS ONCE DAILY IN THE MORNING ON AN EMPTY STOMACH, Disp: 180 tablet, Rfl: 3 lisinopril 20 MG tablet, TAKE 1 TABLET DAILY, Disp: 90 tablet, Rfl: 3 minocycline (Dynacin) 100 MG tablet, Take 100 mg by mouth every 30 (thirty) days, Disp: , Rfl: montelukast (Singulair) 10 MG tablet, TAKE 1 TABLET DAILY IN THE EVENING, Disp: 90 tablet, Rfl: 3 Multiple Vitamins-Minerals (MULTIVITAMIN ADULT, MINERALS, PO), Multivitamin, Disp: , Rfl: ofloxacin (Floxin) 400 MG tablet, Take 400 mg by mouth every 30 (thirty) days, Disp: , Rfl: rifAMPin (Rifadin) 300 MG capsule, Take 600 mg by mouth every 30 (thirty) days, Disp: , Rfl: rosuvastatin (Crestor) 20 MG tablet, TAKE 1 TABLET DAILY, Disp: 90 tablet, Rfl: 3 tiZANidine (Zanaflex) 4 MG tablet, TAKE 1 TABLET EVERY 6 HOURS IF NEEDED FOR MUSCLE SPASMS, Disp: 180 tablet, Rfl: 2 documented in this encounterRusk Rehabilitation [id number] NoteHNO ID: [id number] Author: DAMIEN REEVES PTA Service: ? Author Type: Mastercam Programmer Type: Progress Notes Filed: 03/17/2025 08:24 Note [...] Time (minutes): 45 Session Start Time : 1654 Session Stop Time : 173 [facility]s [facility] History of Present illness Narrative* Damien Reeves PTA - 03/16/2025 4:50 PM EDT Episode Visit [...] Stop Time : 1738 Damien Reeves PTA documented in this encounterAshtabula [facility]05-07-20[facility] History of Present illness Narrative* Damien Reeves PTA - 03/09/2025 5:33 PM EDT Program_ID:[id number] Access Code: [email or web address] URL: [email or web address] Date: 03-09-2025 Prepared By: Chery Land Program [...] x weekly - sets - 3 reps * Damien Reeves PTA - 03/09/2025 4:51 PM EDT Episode Visit Count: 2 Therapist That Will Accept/Oversee The Plan Of Care: Chery Land Start of Care Date: 03/01/25 Onset Date: 11/03/23 REHABILITATION AND SPORTS THERAPY PHYSICAL THERAPY TREATMENT NOTE ASSESSMENT: Jacquie Lantigua tolerated the session well overall. Noted relief from self STM with theragun to leftgluteal. Updated HEP this date and all questions answered. The patient will continue to benefit from ongoing skilled physical therapy to progress toward set goals. PLAN FOR NEXT VISIT: Progress as able. SUBJECTIVE: Patient reported that he's a little better. Still having the pain with activity & prolonged weight bearing. Pain: Pain Pain Level: [...] Stop Time : 1736 Damien Reeves PTA documented in this encounterAshtabula County Medical Center05-07-2025 NoteHNO ID: [id number] Author: DAMIEN REEVES PTA Service: ? Author Type: Mastercam Programmer Type: Progress Notes Filed: 03/09/2025 17:42 Note [...] Time (minutes): 42 Session Start Time : 1655 Session Stop Time : 1737 Damien Reeves [facility]05-05-2025 Telephone encounter Note* Telephone Encounter - Kris Kovacs APRN.ROD WELDER - 03/07/2025 10:56 AM EDT Called and spoke with Ori, he states he has increased pain in his low back radiating down his left leg to left foot/toes recently. Has been going to PT for past several weeks at [facility], has nothelped yet but he is going [...] further questions/concerns. He is appreciative of call. [facility]05-05-[facility] Miscellaneous Notes* Telephone Encounter - Kris Kovacs APRN.CNP - 03/07/2025 10:56 AM EDT Called and spoke with Ori, he states he has increased pain in his low back radiating down his left leg to left foot/toes recently. Has been going to PT for past several weeks at [facility], has nothelped yet but he is going [...] of call. * Telephone Encounter - Juliet Williamson - 03/07/2025 10:47 AM EDT Pt phoned requesting anti inflammatory also asking for physical therapy location change. Pt will contact w name of location and fax number. Pt also asking if able to order massotherapy. documented in this encounterAshtabula County Medical Center05-05-2025 Telephone encounter Note * Telephone Encounter - Juliet Williamson - 03/07/2025 10:47 AM EDT Pt phoned requesting anti inflammatory also asking for physical therapy location change. Pt will contact w name of location and fax number. Pt also asking if able to order massotherapy. [facility]04-29-[facility] Progress note* Therapy (PT/OT/Speech/Resp) - Chery Land, PT - 03/01/2025 1:32 PM EDT Program_ID:[id number] Access Code: [email or web address] URL: [email or web address] Date: 03-01-2025 Prepared By: Chery Land Program [...] weekly - 1 sets - 2 reps [facility]04-29-2025 Miscellaneous Notes* Therapy (PT/OT/Speech/Resp) - Chery Land, PT - 03/01/2025 1:32 PM EDT Program_ID:[id number] Access Code: [email or web address] URL: [email or web address] Date: 03-01-2025 Prepared By: Chery Land Program [...] weekly - 1 sets - 2 reps documented in this encounterAshtabula County Medical Center04-29-2025 NoteHNO ID: [id number] Author: CHERY LAND PT Service: ? Author Type: Physical Therapist [...] Planned: 8 Planned Treatment Interventions: Therapeutic exercise (25512), Neuromuscular re-education (61696), Manual therapy (09386), Therapeutic activities (07775), Self-long term management (51872), Gait Training (10758), Patient/Family/Caregiver Education PLAN FOR NEXT VISIT: Progress [...] a day. 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 Episode Visit Count: 1 Therapist That Will Accept/Oversee The Plan Of Care: Chery Land Start of Care Date: 03/01/25 Onset Date: 11/03/23 Patient Identified by Name and Date of : Yes REHABILITATION AND SPORTS THERAPY PHYSICAL THERAPY EVALUATION PLAN OF CARE: Assessment: Jacquie Lantigua presents with chief complaint of low back pain s/p Left L5-S1 discectomywith foot foraminotomy that interferes with rising from a chair, standing, walking, stair negotiation, bending, lifting, physical activities . The patient presents with impairments in ADL's, balance, flexibility, gait, overall function, range of motion, strength, symptom management, and tissue tenderness. PROMIS (Patient-Reported Outcomes Measurement Information System) scores were [...] to allow for improved ability to perform functionalactivities and activities of daily living Stand / [...] Planned: 8 Planned Treatment Interventions: Therapeutic exercise (90837), Neuromuscular re- education (27620), Manual therapy (98950), Therapeutic activities (88627), Self- long term management (74102), Gait Training (86743), Patient/Family/Caregiver Education PLAN FOR NEXT VISIT: Progress [...] a day. 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 Patient education as noted. Self-Detention Management: 1: Patient educated on impairments noted [...] Time : 1337 Chery Land PT, DPT documented in this encounterAshtabula County Medical Center04-14-2025 History of Present illness Narrative* Jeaneth Shi MD - 02/14/2025 2:45 PM EDT Assessment/Plan Diabetes Mellitus with signs of MINIMAL diabetic retinopathy on dilated retinal examination today OU: Discussed the pathophysiology of diabetes and its effect on the eye. Stressed theimportance of strong glucose control. Advised of importance of at least yearly dilated examinations, but to contact us immediately for any problems or concerns. Continue aggressive control of the blood sugar, blood pressure and cholesterol. documented in this encounterRusk Rehabilitation [id number] NoteHNO ID: [id number] Author: MALIHA BERG MD Service: ? Author [...] history of injury or fall. Pain was radi (more content not included)...[facility] of Present illness Narrative* Maliha Berg MD - 02/03/2025 11:23 AM EDT Images from the original note were not included. SPINE SURGERY FOLLOW UP This is an in-person visit. SERVICE DATE: 02/03/2025 SURGERY DATE: 01/12/2025 Jacquie Lantigua is seen for 3 week post operative follow up. Jacquie Lantigua is a pleasant 59-year-old gentleman is here in spine surgery clinic for 3 week postoperative follow-up visit. He underwent left L5-S1 discectomy with root foraminotomy on 01/12/2025. Hewas evaluated on 08/20/2020 with a history of lower back and left leg pain which is started in February 2024 without any history of injury or fall. Pain was radiating to left lower extremity up to the feet more towards big toe. Pain was constant, aggravated by prolonged sitting and nighttime. Pain wasminimally better with activity. He also noticed numbness over left lower extremity more intense over left chavez and feet. Denied right leg pain or numbness. Denied weakness. Denied bowel or bladder dysfunction. Today, he is doing well overall. He is still complaining of back pain and occasional left leg pain.Pain medication and muscle significantly helped. Denies drainage [...] BULK: Normal and symmetrical in the upper & lower extremities. MUSCLE TONE: Normal. MOTOR: 5/5 in all muscle groups. SENSORY: Normal sensory exam GAIT: Antalgic DATA REVIEW [facility] records independently reviewed Imaging and outside records independently reviewed ASSESSMENT/PLAN Jacquie Lantigua is a pleasant 59-year-old gentleman is here in spine surgery clinic for 3 week postoperative follow-up visit. He underwent left L5-S1 discectomy with root foraminotomy on 01/12/2025. Hewas evaluated on 08/20/2020 with a history of lower back and left leg pain which is started in February 2024 without any history of injury or fall. Pain was radiating to left lower extremity up to the feet more towards big toe. Pain was constant, aggravated by prolonged sitting and nighttime. Pain wasminimally better with activity. He also noticed numbness over left lower extremity more intense over left chavez and feet. Denied right leg pain or numbness. Denied weakness. Denied bowel or bladder dysfunction. Today, he is doing well overall. He is still complaining of back pain and occasional left leg pain.Pain medication and muscle significantly helped. Denies drainage from the incision or fever Known history of diabetes mellitus. Last A1c was 7.1. Currently taking Percocet and Robaxin which helps his pain. Neurological examination showed well-healed lumbar incision. No signs of infection. No motor weakness. Stable gait. Discussed clinical finding. Recommended physical therapy, which is ordered. Recommended to increasehis activities as tolerated, avoid lifting weight more than 15 to 20 pounds for another 3 weeks. Asper request, Percocet prescription sent to the pharmacy. [...] minutes. By signing my name below, Jagjit Aranda MA Student, attest that this documentation has been prepared under the direction and in the presence of Dr. Berg Electronically signed, YAO Foreman, Vern February 03, 2025 11:23 AM Provider Attestation: Maliha Aranda MD personally performed the services described in [...] February 03, 2025 TIME: 11:24 AM PAGER: documented in this encounterAshtabula [facility] Center03-17-2025 Telephone encounter Note * Telephone Encounter - Kris Kovacs APRN.CNP - 01/17/2025 11:37 AM EDT Called and spoke with Jacquie, he states he was able to sleep last night for the first time since surgery. He states pain and spasms in his right leg have been what has bothered him the most but last night it did seem a little better. He is taking percocet and robaxin and utilizing ice packs. Advisedat this time to continue current pain control regimen and be diligent about using ice packs. 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 He inquires about if he can remove surgical dressing because the nurse in the hospital told him 7 days but the discharge papers said 4, advised he may remove and shower and pat the incision dry with clean towel after, advisedplacing new dressing if the incision is draining but otherwise can leave open to air if it is not. Red flag symptoms were discussed. He verbalized understanding and is appreciative of phone call. Advised to call back with any further questions/concerns. [facility]03-17-2025 Miscellaneous Notes* Telephone Encounter - Kris Kovacs APRN.CNP - 01/17/2025 11:37 AM EDT Called and spoke with Jacquie, he states he was able to sleep last night for the first time since surgery. He states pain and spasms in his right leg have been what has bothered him the most but last night it did seem a little better. He is taking percocet and robaxin and utilizing ice packs. Advisedat this time to continue current pain control regimen and be diligent about using ice packs. 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 He inquires about if he can remove surgical dressing because the nurse in the hospital told him 7 days but the discharge papers said 4, advised he may remove and shower and pat the incision dry with clean towel after, advisedplacing new dressing if the incision is draining but otherwise can leave open to air if it is not. Red flag symptoms were discussed. He verbalized understanding and is appreciative of phone call. Advised to call back with any further questions/concerns. * Telephone Encounter - Riya Hu - 01/17/2025 11:18 AM EDT Medication for pain is not working as is should patient is still having lots of discomfort. Patientwanted to know when the holder patch needs to come off. Patient # [phone] documented in this encounterAshtabula [facility] Center03-17-2025 Telephone encounter Note * Telephone Encounter - Riya Hu - 01/17/2025 11:18 AM EDT Medication for pain is not working as is should patient is still having lots of discomfort. Patientwanted to know when the holder patch needs to come off. Patient # [phone] [facility]03-17-2025 Telephone encounter Note* Telephone Encounter - Riya Hu - 01/17/2025 11:15 AM EDT Patient send medication request to wrong provider. He is requesting a refill. Call from patient requesting refill. Requested Prescriptions Pending Prescriptions Disp Refills oxyCODONE-acetaminophen (PERCOCET) 5-325 mg tablet 28 tablet 0 Sig: Take 1 tablet by mouth every 6 hours as needed for pain for up to 7 days. Patient last seen 01/12/25 Riya Hu [facility]03-17-2025 Miscellaneous Notes* Telephone Encounter - Riya Hu - 01/17/2025 11:15 AM EDT Patient send medication request to wrong provider. He is requesting a refill. Call from patient requesting refill. Requested Prescriptions Pending Prescriptions Disp Refills oxyCODONE-acetaminophen (PERCOCET) 5-325 mg tablet 28 tablet 0 Sig: Take 1 tablet by mouth every 6 hours as needed for pain for up to 7 days. Patient last seen 01/12/25 Riya Hu documented in this encounterAshtabula County Medical Center03-14-2025 Telephone encounter Note * Telephone Encounter - Amari Blue RN - 01/14/2025 9:15 AM EDT Letter faxed [facility]03-14-2025 Miscellaneous Notes* Telephone Encounter - Amari Blue RN - 01/14/2025 9:15 AM EDT Letter faxed * Telephone Encounter - Juliet Williamson - 01/14/2025 9:02 AM EDT Pt phoned with updated fax number for Pt work excuse fax # [phone] attn Herber Costa documented in this encounterAshtabula County Medical Center03-14-2025 Telephone encounter Note * Telephone Encounter - Juliet Williamson - 01/14/2025 9:02 AM EDT Pt phoned with updated fax number for Pt work excuse fax # [phone] attn Herber Costa [facility]03-14-2025 Telephone encounter Note* Telephone Encounter - Amari Blue RN - 01/14/2025 8:40 AM EDT Letter written Sent to my chart Number provided not working for fax Pt notified [facility]03-14-2025 Miscellaneous Notes* Telephone Encounter - Amari Blue RN - 01/14/2025 8:40 AM EDT Letter written Sent to my chart Number provided not working for fax Pt notified * Telephone Encounter - Monse Lane - 01/13/2025 10:10 AM EDT Patient called back with fax number of [phone]. * Telephone Encounter - Eulalia Cerrato - 01/13/2025 9:36 AM EDT Jacquie is calling Maliha Berg MD today to request a letter to be off work. 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 Patient asking [...] patient at: at home and on cell [phone] (home) [phone] (cell) Was an appointment scheduled: No Closing statement: Results or non-symptom based questions: Thank you for calling [facility], your call will be returned within the next business day. Eulalia Cerrato documented in this encounterAshtabula County Medical Center03-13-2025 Telephone encounter Note * Telephone Encounter - Monse Lane - 01/13/2025 10:10 AM EDT Patient called back with fax number of [phone]. [facility]03-13-[facility] Telephone encounter Note* Telephone Encounter - Eulalia Cerrato - 01/13/2025 9:36 AM EDT Jacquie is calling Maliha Berg MD today to request a letter to be off work. 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 Patient asking [...] patient at: at home and on cell [phone] (home) [phone] (cell) Was an appointment scheduled: No Closing statement: Results or non-symptom based questions: Thank you for calling [facility], your call will be returned within the next business day. Eulalia Cerrato [facility]03-12-2025 NoteHNO ID: [id number] Author: INZANO, OSITO, AA Service: Anesthesiology Author Type: Vocational Aide Type: Anesthesia Procedure Notes Filed: 01/12/2025 07:56 [...] Successful intubation technique: video laryngoscopy Devices used: abcdexperts Endotracheal tube insertion site: oral Blade: Gaston [...] January 12, 2025 TIME: 7:55 AM CSN: [id number] Instructions* Patient Instructions* Prabha Gonzalez APRN.ROD WELDER - 12/30/2024 8:20 AM EST PATIENT PREOPERATIVE INSTRUCTIONS Natacha Berg* has scheduled you for your procedure at this surgery center: [facility]: [phone] --[address] [place] [address]. On your scheduled day of surgery, please report to Patient Registration, ground floor Please read below carefully for your personalized instructions. Dietary Restrictions: - No solid food after midnight. - You may have 12 ounces of clear liquids (water, clear juices such as apple juice or gatorade, carbonated beverages, clear tea, black coffee -NO CREAM OR SUGAR ) until 2 hours before scheduled arrival at facility. Medications: Unless instructed differently below, stay on all of your prescription medications until your surgery. Approved medications to take the morning of surgery with a sip of water: FLUoxetine (PROZAC) , gabapentin (NEURONTIN) , levothyroxine (SYNTHROID) , lisinopril (ZESTRIL, PRINIVIL) ; ALL INHALERS - Insulin pump: continue the same basal rate after Midnight before Surgery If you start any new medications after today's visit, please contact the surgeon's office. Blood Thinning Medications: - Stop NSAIDS (Ibuprofen, Advil, Aleve, Motrin, Celebrex, Mobic, etc.) 7 days before surgery, as directed by your surgeon. - Do NOT stop aspirin or other anticoagulants without consulting with your property utilization officer or prescribing physician. - Stop ALL herbal supplements 7 days before surgery. - You may take Tylenol (Acetaminophen) or any of your pain medications that do not contain aspirin or NSAIDS as needed. Important Reminders: - If you are prescribed inhalers for breathing, continue using them. - Candy, mints, and tobacco products are NOT permitted the morning of surgery. - Hearing aids, dentures and glasses may be worn the morning of surgery. - NO jewelry, body piercings, makeup, hairpins or contacts are to be worn the day of surgery. If you develop symptoms such as a fever, cold, or flu, or have other changes to your health within TWO DAYS of scheduled surgery or the morning of surgery, please contact the surgery center above. Personal Belongings: -Please have photo ID and insurance cards. -If you do not have a copy of advance directives on file with us, please bring a copy with you on the day of surgery. - Leave ALL valuables and money at home or with family members. For Outpatient Procedures: - YOU MUST HAVE A RESPONSIBLE DISH CARRIER TAKE YOU HOME. A DICTAPHONE TRANSCRIBER OR OPS MANAGER CANNOT BE MADE A RESPONSIBLE DISH CARRIER. - We recommend that a responsible person stays with you overnight to take care of you. - You cannot stay in a hotel alone after outpatient surgery. You will not be permitted to have yoursurgery, if you do not have someone to take care of you. Arrival Time for Surgery: - The Surgery Center or hospital where you are having surgery will call the afternoon before surgery (or Friday for Friday surgery) with a scheduled arrival time. - If you have not heard by 4 pm, please contact the surgery center above. Please be aware that emergency situations arise, which may delay or change your surgical time. If this happens, we will notify you as soon as possible and regret any inconvenience. If you already have an Advance Directive, please fax a copy to [phone] or email to for it to be added to your chart. If you do not have an Advance Directive, you can find the appropriate form and more information at [email or web address]. We recommend that youcomplete the Advance Directive form found on the website and bring it with you the day of your surgery. It can be witnessed and scanned into your chart that day. documented in this encounterAshtabula [facility] Center02-27-2025 History and physical note * Prabha Gonzalez APRN.CNP - 12/30/2024 7:50 AM EST Images from the original note were not included. [facility] HISTORY AND PHYSICAL EXAMINATION SERVICE DATE: 12/30/2024 SERVICE TIME: 8:07 AM PRIMARY CARE PHYSICIAN: Mikael Araya DO, DO Assessment Patient has the following medical conditions which may affect emanuel-operative course: MIXED HYPERLIPIDEMIA Assessment: Managed with med , Follows with PCP Type 1 diabetes mellitus with other specified complication (HCC) Assessment: Managed with insulin pump, CGM Follows with Dr. 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 results CONSULTS: Planned Anesthetic: anesthesia choice The Following Tests/Procedures Have Been Initiated: Mupirocin ointment per Surgeon + Orders Placed This Encounter BMP Standing Status: Future Expected Date: 12/30/2024 Expiration Date: 03/31/2025 Complete Blood Count Standing Status: Future Expected Date: 12/30/2024 Expiration Date: 03/31/2025 Staphylococcus aureus & MRSA Screen, PCR, Nasal Standing Status: Future Expected Date: 12/30/2024 Expiration Date: 03/31/2025 tiZANidine [...] Imm Admin: COVID-19 vaccine, age 12+ yr (PFIZER-BIONTECH COMIRNATY) 08/18/2023 Imm Admin: COVID-19 vaccine, age 12+ yr (PFIZER-BIONTECH COMIRNATY) 08/10/2022 Imm Admin: COVID-19 vaccine, age 12+ yr, bivalent (PFIZER-BIONTECH) Only the first 3 history entries have [...] fevers. Neurological: No history of TIA's, stroke, REHABILITATOR tumor, impaired sensorium, hemiplegia, paraplegia orquadraplegia. No neurological symptoms or problems. Respiratory: Positive [...] SURGICAL HISTORY Procedure Laterality Date ADENOIDECTOMY PRIMARY Adenoidectomy COLONOSCOPY SCREENING LAPS ABD PRTM&OMENTUM DX W/WO SPEC BR/WA SPX 05/03/2006 Laparoscopy: mass in the omentum TONSILLECTOMY PRIMARY/SECONDARY Tonsillectomy FAMILY HISTORY Problem Relation Age of [...] application to affected area two times a day.(No more than 21 days per month) Yes [...] INSULIN PUMP) misc Basal rates: 24:00 --1.6units/hr; 030 0:-2.3units/hr;06:00-1.8;11:00-1.8;12:00-2.0;16:00-2.2;19:00-2.7;21:00-2.4 ;22:00-1.6. Bolus: 2 unit/6 Gms CHO each [...] ALEXANDER 5/5, Antalgic gait; (+) d/p flex/ext- detaileddeferred to surgeon . PAIN ASSESSMENT: Pain Pain Level: 7 VITALS: BP 152/78 Pulse 69 Temp (Src) 98 (Temporal) Resp 16 Ht 5' 8 (1.73m) Wt 199 lb 1.2 oz (90.3kg) SpO2 97% BMI 30.28 kg/(m^2). Diagnostic tests reviewed for today's visit: Lab Value Units Date High Low HB No results within date range. HCT No results within date range. WBC No results within date range. PLT No results within date range. NA No results within date range. K No results within date range. GLUC No results within date range. BUN No results within date range. CREAT No results within date range. PTSEC No results within date range. INR No results within date range. APTT No results within date range. ALT No results within date range. AST No results within date range. TBILI No results within date range. TSH No results within date range. Lab Value Units Date High Low HCGQT No results within date range. UHCG No results within date range. HCG, BODY* No results within date range. Lab Value Units Date High Low ABORHD No results within date range. ABSCREEN No results within date range. Hemoglobin A1C (%) Date Value 11/16/2022 7.2 03/05/2011 9.4 12/28/2003 9.8 10/01/2001 9.3 06/02/2001 10.9 Hemoglobin A1C (POCT) (%) Date Value 12/07/2024 7.1 07/08/2024 6.9 12/31/2023 7.2 06/17/2023 7.0 12/05/2021 7.1 Recent Results (from the past 8760 hours) ECG COMPLETE Collection Time: 12/30/24 8:36 AM Result Value Ventricular Rate 62 Atrial Rate 62 P-R Interval 132 QRS Duration 104 QT Interval 412 QTC Calculation (Bazett) 418 Calculated P [place] 65 Calculated R [place] 39 Calculated T [place] 48 Impression NORMAL SINUS RHYTHM NORMAL ECG Instructions Given to Patient: Instructions located in the after visit summary. Patient given verbal and written preop instructions and voices comprehension and compliance. SIGNATURE: Prabha Gonzalez APRN.CNP PATIENT NAME: Jacquie Lantigua DATE: 12/30/2024 TIME: 8:07 AM [facility]02-27-2025 History and physical note* Prabha Gonzalez APRN.CNP - 12/30/2024 7:50 AM EST Images from the original note were not included. [facility] HISTORY AND PHYSICAL EXAMINATION SERVICE DATE: 12/30/2024 SERVICE TIME: 8:07 AM PRIMARY CARE PHYSICIAN: Mikael Araya DO, DO Assessment Patient has the following medical conditions which may affect emanuel-operative course: MIXED HYPERLIPIDEMIA Assessment: Managed with med , Follows with PCP Type 1 diabetes mellitus with other specified complication (HCC) Assessment: Managed with insulin pump, CGM Follows with Dr. 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 results CONSULTS: Planned Anesthetic: anesthesia choice The Following Tests/Procedures Have Been Initiated: Mupirocin ointment per Surgeon + Orders Placed This Encounter BMP Standing Status: Future Expected Date: 12/30/2024 Expiration Date: 03/31/2025 Complete Blood Count Standing Status: Future Expected Date: 12/30/2024 Expiration Date: 03/31/2025 Staphylococcus aureus & MRSA Screen, PCR, Nasal Standing Status: Future Expected Date: 12/30/2024 Expiration Date: 03/31/2025 tiZANidine [...] Imm Admin: COVID-19 vaccine, age 12+ yr (PFIZER-BIONTECH COMIRNATY) 08/18/2023 Imm Admin: COVID-19 vaccine, age 12+ yr (PFIZER-BIONTECH COMIRNATY) 08/10/2022 Imm Admin: COVID-19 vaccine, age 12+ yr, bivalent (aiHit-BIONTECH) Only the first 3 history entries have [...] fevers. Neurological: No history of TIA's, stroke, REHABILITATOR tumor, impaired sensorium, hemiplegia, paraplegia orquadraplegia. No neurological symptoms or problems. Respiratory: Positive [...] age 5 Adenoidectomy COLONOSCOPY SCREENING LAPS ABD PRTM&OMENTUM DX W/WO SPEC BR/WA SPX 05/03/2006 Laparoscopy: [...] application to affected area two times a day.(No more than 21 days per month) Yes [...] INSULIN PUMP) misc Basal rates: 24:00 --1.6units/hr; 030 0:-2.3units/hr;06:00-1.8;11:00-1.8;12:00-2.0;16:00-2.2;19:00-2.7;21:00-2.4 ;22:00-1.6. Bolus: 2 unit/6 Gms CHO each [...] ALEXANDER 5/5, Antalgic gait; (+) d/p flex/ext- detaileddeferred to surgeon . PAIN ASSESSMENT: Pain Pain Level: 7 VITALS: BP 152/78 Pulse 69 Temp (Src) 98 (Temporal) Resp 16 Ht 5' 8 (1.73m) Wt 199 lb 1.2 oz (90.3kg) SpO2 97% BMI 30.28 kg/(m^2). Diagnostic tests reviewed for today's visit: Lab Value Units Date High Low HB No results within date range. HCT No results within date range. WBC No results within date range. PLT No results within date range. NA No results within date range. K No results within date range. GLUC No results within date range. BUN No results within date range. CREAT No results within date range. PTSEC No results within date range. INR No results within date range. APTT No results within date range. ALT No results within date range. AST No results within date range. TBILI No results within date range. TSH No results within date range. Lab Value Units Date High Low HCGQT No results within date range. UHCG No results within date range. HCG, BODY* No results within date range. Lab Value Units Date High Low ABORHD No results within date range. ABSCREEN No results within date range. Hemoglobin A1C (%) Date Value 11/16/2022 7.2 03/05/2011 9.4 12/28/2003 9.8 10/01/2001 9.3 06/02/2001 10.9 Hemoglobin A1C (POCT) (%) Date Value 12/07/2024 7.1 07/08/2024 6.9 12/31/2023 7.2 06/17/2023 7.0 12/05/2021 7.1 Recent Results (from the past 8760 hours) ECG COMPLETE Collection Time: 12/30/24 8:36 AM Result Value Ventricular Rate 62 Atrial Rate 62 P-R Interval 132 QRS Duration 104 QT Interval 412 QTC Calculation (Bazett) 418 Calculated P [place] 65 Calculated R [place] 39 Calculated T [place] 48 Impression NORMAL SINUS RHYTHM NORMAL ECG Instructions Given to Patient: Instructions located in the after visit summary. Patient given verbal and written preop instructions and voices comprehension and compliance. SIGNATURE: Prabha Gonzalez APRN.CNP PATIENT NAME: Jacquie Lantigua DATE: 12/30/2024 TIME: 8:07 AM documented in this encounterAshtabula [facility]02-[facility] Telephone encounter Note * Telephone Encounter - Marcello Gil LPN - 12/27/2024 8:13 AM EST Images from the original note were not included. I don't know how to send from here... ARIELA MACKEY routed conversation to Mikael Araya, DO5 minutes ago (8:07 AM) Ori Araya Cuffing Machine Operator (supporting Mikael Araya DO)2 days ago Refills have been requested for the following medications: Other - Hydrocodone - acetamin Preferred pharmacy: [id number] - [place], [place] - [address] [facility] [place] Delivery method: Pickup NOMS [id number] Miscellaneous Notes* Telephone Encounter - Marcello Gil LPN - 12/27/2024 8:13 AM EST Images from the original note were not included. I don't know how to send from here... ARIELA MACKEY routed conversation to Mikael Araya DO5 minutes ago (8:07 AM) Ori Araya Cuffing Machine Operator (supporting Mikael Araya DO)2 days ago Refills have been requested for the following medications: Other - Hydrocodone - acetamin Preferred pharmacy: [id number] - [place], [place] - [address] [facility] [place] Delivery method: Pickup documented in this encounterRusk Rehabilitation [id number] History of Present illness Narrative* Maliha Berg MD - 12/23/2024 11:40 AM EST SPINE SURGERY ESTABLISHED This is an in-person [...] minimally better with activity. He also noticed numbnessover left lower extremity more intense over left [...] injection on 06/29/2024 with 30% pain relief for40 hours. No previous spine surgery. PAIN EVALUATION [...] injection on 09/28/2024 with almost 100% pain relieffor 24 hours. REVIEW OF SYSTEMS: GENERAL: No [...] application to affected area two times a day.(No more than 21 days per month) fluticasone [...] INSULIN PUMP) misc Basal rates: 24:00 --1.6units/hr; 030 0:-2.3units/hr;06:00-1.8;11:00-1.8;12:00-2.0;16:00-2.2;19:00-2.7;21:00-2.4 ;22:00-1.6. Bolus: 2 unit/6 Gms CHO each meal; correction : 1 unit every 25 mg > 125 mg/dl. Eva hein. hrd: tmp bas at 80% lisinopril (ZESTRIL) 2.5 mg tablet Take 4 tablets by mouth once daily. (Patient taking differently:Take 2.5 mg by mouth once daily.) aspirin, [...] T2/hypointense T1 lesion within the vertebral body ofL1. There is a hyperintense T2/hypointense T1 lesion within the vertebral body of L2 measuring appro ximately 1.4 cm. A hyperintense T2/hypointense T1 lesion [...] minimally better with activity. He also noticed numbnessover left lower extremity more intense over left [...] injection on 06/29/2024 with 30% pain relief for40 hours. No previous spine surgery. Neurological examination [...] at L4-5 level. Left L5-S1 foraminal disc herniationwith indentation over left L5 root. No significant [...] good option. Discussed in detail about left L5- S1 discectomy with root foraminotomy with and without L5-S1 transforaminal lumbar interbody fusion surgical procedure was advantages and risks. Discussed in detail about both surgical procedures. Considering diffuse disc herniation /foraminal disc herniation, fusion may be a better [...] of numbness, pneumonia, DVT, heart attack, pulm embol ism and . Also discussed about the realistic [...] were discussed with the patient or the patient s personal security representative. The patient has elected to schedule [...] minutes. By signing my name below, Jagjit Aranda MA Student, attest that this documentation has been prepared under the direction and in the presence of Dr. Berg Electronically signed, YAO Foreman Scribe December 23, 2024 11:40 AM Provider Attestation: Maliha Aranda MD personally performed the services described in [...] December 23, 2024 TIME: 9:34 AM PAGER: documented in this encounterAshtabula [facility]02-[facility]-2025 NoteHNO ID: [id number] Author: MALIHA BERG MD Service: ? Author [...] a day CENTRUM ECHINACEA CAPSULE 100MG PO (more content not included)...[facility]02-06[facility] Telephone encounter Note* Telephone Encounter - Dora Arevalo MA - 12/09/2024 10:36 AM EST Lab orders printed, signed, stamped and placed in mail for foster care worker service [facility]02-06-2025 Miscellaneous Notes* Telephone Encounter - Dora Arevalo MA - 12/09/2024 10:36 AM EST Lab orders printed, signed, stamped and placed in mail for foster care worker service documented in this encounterAshtabula County Medical Center02-05-2025 History of Present illness Narrative* Jr. Mikael Jordan DO - 12/08/2024 11:15 AM EST Images from the original note were not included. HISTORY OF PRESENT ILLNESS: EST PT Jacquie Lantigua is an 59 y.o. @ male. (EST PT) (LAST APPT WITH [facility]) - RECHECK (L) KNEE ; S/P US LLE VENOUS DUPLEX 09/03/24 ; HERE FOR OPTIONS XRAYS, (L) TIB / FIB 04/29/24 IN [facility] US LLE VENOUS DUPLEX 09/03/24 IN [facility] MRI, (L) KNEE & L-SPINE 05/07/24 IN [facility] MRI, L-SPINE W/ CONTRAST ORDERED PER PCP NO MDP / PREDNISONE NO CORTISONE INJ NO PT NO PAIN MGMT SYMPTOMS FOR ~1 YR (DEC 2023). NKI. NOTES POSTERIOR KNEE PAIN THAT RADIATES POSTERIORLY INTO MID CALF / THIGH - SOME N/T IN THE SIDE OF HIS ANKLE / FOOT (PT IS A DIABETIC). NOTES HX OF SCIATICA. NOTES GOOD ROM ; DENIES ANY INSTABILITY. DENIES POPPING / CLICKING / GRINDING. PT IS ACTIVE WITH WORK. TAKING MOTRIN 800MG AND TYL 500-1000MG Q 5-6HRS ; WITH RELIEF. TIZANIDINE 2 DAILY. HEATING / ICING / ELEVATING - SOME RELIEF. TAKES MONTHLY DOSE OF MINOCYCLINE, OFLOXACIN & RIFADIN FOR GRANULOMA ANNULARE (PER DR MARTINEZ @ [facility]) ALLERGIES: Allergies Allergen Reactions Adalimumab Other Reaction(s): chest pain, cough Methotrexate Unknown Red Dye #40 (Allura Red) Unknown Sulfamethoxazole Other Reaction(s): Unknown Reaction Sulfamethoxazole-Trimethoprim Unknown Trimethoprim Other Reaction(s): Unknown Reaction HOME MEDICATIONS: Current Outpatient Medications Medication Instructions Advair HFA 230-21 MCG/ACT inhaler Inhalation, 2 times daily albuterol HFA (ProAir HFA) 90 mcg/act inhaler 2 puffs, Inhalation, Every 4 hours PRN aspirin (ASPIRIN) 81 mg, Once cyclobenzaprine (FLEXERIL) 10 mg, Oral, Nightly famotidine (PEPCID) 20 mg, Daily FLUoxetine (PROZAC) 40 mg, Oral, Daily fluticasone (Flonase) 50 MCG/ACT nasal spray 2 sprays, Each Nostril, Daily gabapentin (NEURONTIN) 1,200 mg, Oral, 3 times daily ibuprofen 800 MG tablet TAKE 1 TABLET THREE TIMES A DAY NEEDED FOR MODERATE PAIN OR MILD PAIN Icosapent Ethyl (Vascepa) 1 g capsule TAKE 2 CAPSULES TWICE A DAY WITH MEALS insulin lispro (HumaLOG) 100 UNIT/ML injection 3 times daily with meals levothyroxine (Synthroid, Levoxyl) 50 MCG tablet TAKE 2 TABLETS ONCE DAILY IN THE MORNING ON AN EMPTY STOMACH lisinopril 20 mg, Oral, Daily minocycline (DYNACIN) 100 mg, Every 30 days montelukast (SINGULAIR) 10 mg, Oral, Every evening Multiple Vitamins-Minerals (MULTIVITAMIN ADULT, MINERALS, PO) Multivitamin ofloxacin (FLOXIN) 400 mg, Every 30 days rifAMPin (RIFADIN) 600 mg, Every 30 days rosuvastatin (CRESTOR) 20 mg, Oral, Daily tiZANidine (Zanaflex) 4 MG tablet TAKE 1 TABLET EVERY 6 HOURS IF NEEDED FOR MUSCLE SPASMS triamcinolone (Kenalog) 0.1 % cream 1 Application, 2 times daily vitamin C 1,000 mg, Every 24 hours PHYSICAL EXAM: Knee Musculoskeletal Exam Gait Gait is normal. Limp: left Inspection Leg length disparity: no discrepancy Left Erythema: none Effusion: none Edema: none Ecchymosis: none Deformity: none Alignment: normal Palpation Left Left knee palpation is unremarkable. Increased warmth: none Masses: none Crepitus: patellofemoral Tenderness: none Tenderness comment: discomfort L5 radicular in left leg. Range of Motion Left Left knee range of motion is normal and full. Active extension: 5 Passive extension: 5 Active flexion: 120 Passive flexion: 120 Strength Left Left knee strength is normal. Extension: 5/5. Flexion: 5/5. Instability Left Instability signs: none - stable Varus stress grade: normal Valgus stress grade: normal Anterior drawer: normal Medial Fortino test: negative Lateral Fortino test: negative Neurovascular Left Left knee neurovascular exam is normal. Patella reflex: 2/4 Pulses - PT: normal Posterior tibial: 2+ Capillary refill: warm and well-perfused Special Signs Left Left knee special signs are normal. Patellar apprehension: none General Constitutional: appears stated age Labored breathing: no Psychiatric: normal mood and affect Neurological: alert Skin: intact Lymphadenopathy: none Vitals: There is no height or weight on file to calculate BMI. Tobacco Use: Medium Risk (12/08/2024) Patient History Smoking Tobacco Use: Former Smokeless Tobacco Use: Never Passive Exposure: Not on file Alcohol Use: Patient Declined (01/07/2024) AUDIT-C Frequency of Alcohol Consumption: Patient declined Average Number of Drinks: Patient declined Frequency of Binge Drinking: Patient declined IMAGING: Procedures Orders Placed This Encounter Procedures XR knee 1 or 2 views left Order Specific Question: Views Answer: AP Order Specific Question: Views Answer: Lateral Order Specific Question: Reason for exam: Answer: PAIN ASSESSMENT: ICD-10-CM 1. Acute pain of left knee M25.562 XR knee 1 or 2 views left PLAN: We have discussed surgical and nonsurgical treatment options and the risks and benefits associated with both, and recommended a diagnostic and operative arthroscopy of his left knee with a medial meniscal tear. We have discussed both surgical and nonsurgical treatment options with the patient at length and the risks and benefits associated with both. The patient is requesting surgical intervention because they have not responded to outpatient treatment options including but not limited to rest ice, and home exercise program. Pain and decreased range of motion are affecting the patient's ability to sleepand activities of daily living and we have recommended surgical intervention. Questions answered in laymen terms at the bedside. The diagnosis, home exercise plan and any ongoing restrictions/ recommendations reviewed. If unable to be reached in office, I recommend evaluation at nearest Emergency Room if any symptoms worsened or new symptoms develop for requiring urgent evaluation. documented in this encounterRusk Rehabilitation [id number] Note* Addendum Note - Dora Arevalo MA - 12/07/2024 3:03 PM ESTAddended by: DORA AREVALO on: 12/07/2024 03:03 PM Modules accepted: Orders [facility]02-04-2025 Miscellaneous Notes* Addendum Note - Dora Arevalo MA - 12/07/2024 3:03 PM ESTAddended by: DORA AREVALO on: 12/07/2024 03:03 PM Modules accepted: Orders * Telephone Encounter - Dora Arevalo MA - 12/07/2024 3:00 PM EST Spoke to patient regarding another message and he mentioned that having lab work prior to seeing Glo Sandra in June. Current lab orders in March. Patient asking if new orders can be sentto his home to complete in [place] before his next appointment. documented in this encounterAshtabula County Medical Center02-04-2025 Telephone encounter Note * Telephone Encounter - Dora Arevalo MA - 12/07/2024 3:00 PM EST Spoke to patient regarding another message and he mentioned that having lab work prior to seeing Glo Sandra in June. Current lab orders in March. Patient asking if new orders can be sentto his home to complete in [place] before his next appointment. [facility]02-[facility] Telephone encounter Note* Telephone Encounter - Dora Arevalo MA - 12/07/2024 2:59 PM EST Spoke to patient and gave him Dr Villagomez message. Patient voiced understanding. Patient stated that he has not heard from PCP regarding lab results. [facility]02-04-2025 Miscellaneous Notes* Telephone Encounter - oDra Arevalo MA - 12/07/2024 2:59 PM EST Spoke to patient and gave him Dr Villagomez message. Patient voiced understanding. Patient stated that he has not heard from PCP regarding lab results. * Telephone Encounter - Bernardino Villagomez DO - 12/07/2024 2:44 PM EST Please advise pt that his liver studies are abnormal on the blood work that he had done in November (but improved from previous results)- has his primary care provider discussed these results with him? KB documented in this encounterAshtabula County [facility] Center02-04-2025 Telephone encounter Note * Telephone Encounter - Dora Arevalo MA - 12/07/2024 2:50 PM EST Patient expressed interest in new pump while at office visit but was not sure when his current pumpis out of warranty. I spoke to [employer] [facility] and patient is still under warranty but they can initiate a software upgrade. An order was opened and an upgrade team will reach out. Patient notified. [facility]02-04-[facility] Miscellaneous Notes* Telephone Encounter - Dora Arevalo MA - 12/07/2024 2:50 PM EST Patient expressed interest in new pump while at office visit but was not sure when his current pumpis out of warranty. [facility] and patient is still under warranty but they can initiate a software upgrade. An order was opened and an upgrade team will reach out. Patient notified. documented in this encounterAshtabula County Medical Center02-04-2025 Telephone encounter Note * Telephone Encounter - Bernardino Villagomez DO - 12/07/2024 2:44 PM EST Please advise pt that his liver studies are abnormal on the blood work that he had done in November (but improved from previous results)- has his primary care provider discussed these results with him? KB [facility]02-04-20[facility] Instructions* Patient Instructions* Bernardino Villagomez DO - 12/07/2024 11:15 AM EST 1) would recommend upgrading pump to 780 [...] 50 mcg/day (two tabs) daily 5) see ROD WELDER in [place] 6 months, me in one year. documented in this encounterAshtabula County Medical Center02-04-2025 NoteHNO ID: [id number] Author: DORA AREVALO MA Service: ? Author Type: Head Librarian Type: Procedures Filed: 12/07/2024 14:47 Note Text:[facility]02[facility] Procedure note* Dora Arevalo MA - 12/07/2024 11:03 AM ESTProcedure(s): EXTERNAL HUMAN SERVICES PROFESSIONAL, CGM SYS Images from the original note were not included. [facility]02-04[facility] Procedure note* Dora Arevalo MA - 12/07/2024 11:03 AM ESTProcedure(s): EXTERNAL HUMAN SERVICES PROFESSIONAL, CGM SYS Images from the original note were not included. documented in this encounterAshtabula County Medical Center02-04-2025 History of Present illness Narrative* Bernardino Villagomez DO - 12/07/2024 11:00 AM EST Reason for Consultation: 1- f/u- DM Type 1 w/ retinopathy 2- hyperlipidemia 3- Hypothyroidism Referring Physician: Dr Araya My final recommendations will be communicated back to the requesting physician by way of shared Medical record or letter via US mail. HISTORY OF PRESENT ILLNESS Mr. Lantigua is a 59 year old male presenting here today for a follow up of type 1 diabetes mellitus,hyperlipidemia and hypothyroidism. Last visit with me was [...] <AGE 11 age 5 Adenoidectomy LAPS ABD PRTM&OMENTUM DX W/WO SPEC BR/WA SPX 05/08 Laparoscopy: [...] application to affected area two times a day.(No more than 21 days per month) 453.6 [...] INSULIN PUMP) misc Basal rates: 24:00 --1.6units/hr; 030 0:-2.3units/hr;06:00-1.8;11:00-1.8;12:00-2.0;16:00-2.2;19:00-2.7;21:00-2.4 ;22:00-1.6. Bolus: 2 unit/6 Gms CHO each meal; correction : 1 unit every 25 mg > 125 mg/dl. Eva fuentesk. hrd: tmp bas at 80% 1 Each 0 lisinopril (ZESTRIL) 2.5 mg tablet Take 4 tablets by mouth once daily. (Patient taking differently:Take 2.5 mg by mouth once daily.) 90 [...] kg (191 lb 12.8 oz) BMI 29.16 kg/m GENERAL: Alert, no distress, cooperative SKIN: Skin [...] mcg/day (two tabs) daily 5) see CHRISTINA in [place] 6 months, me in one year. The [...] diabetes is 130/80. This patient is at targeton their current regimen. 3. Lipids: Target LDL cholesterol in patients with diabetes is less than 100, less than 70 if patient has overt CVD. Several studies have shown cardiovascular benefits of statin therapy in all patients with diabetes over age 40 with at least 1 CVD risk factor. This patient is currently at target onstatin therapy. 4. Antiplatelet therapy: Low dose antiplatelet therapy is recommended for patients with diabetes atincreased cardiovascular risk. This includes most men over [...] patient was asked to f/u with CHRISTINA Bañuelos in 6 months, me in 1 year Bernardino Villagomez DO documented in this encounterAshtabula County Medical Center02-04-2025 NoteHNO ID: [id number] Author: BERNARDINO VILLAGOMEZ DO Service: ? Author Type: Physician Type: [...] SURGICAL HISTORY Procedure Laterality Date ADENOIDECTOMY PRIMARY Adenoidectomy LAPS ABD PRTMANDOMENTUM DX W/WO SPEC BR/WA SPX 05/08 Laparoscopy: mass in the omentum TONSILLECTOMY PRIMARY/SECONDARY Tonsillectomy FAMILY HISTORY Problem Relation Age of [...] by mouth once daily as needed. 0 Subcut (more content not included)...[facility] Tele[facility] encounter Note* Telephone Encounter - Marcello Gil LPN - 2024 8:08 AM EST Refills have been requested for the following medications: Other - Hydrocodone 5-325 tablets Preferred pharmacy: [id number] Delivery method: [facility]up [facility] [id number] Miscellaneous Notes* Telephone Encounter - Marcello Gil LPN - 2024 8:08 AM EST Refills have been requested for the following medications: Other - Hydrocodone 5-325 tablets Preferred pharmacy: [facility] [id number] [place] [address] Delivery method: Pickup documented in this encounterRusk Rehabilitation [id number] Telephone encounter Note* Telephone Encounter - Rasheeda Staton - 11/04/2024 11:43 AM EST Called and spoke to patient to assist with scheduling appointment for f/u to see Dr. Apodaca However patient was not able to schedule at the time and will call back office. Rasheeda Staton [facility]01-02-2025 Miscellaneous Notes* Telephone Encounter - Rasheeda Staton - 11/04/2024 11:43 AM EST Called and spoke to patient to assist with scheduling appointment for f/u to see Dr. Apodaca However patient was not able to schedule at the time and will call back office. Rasheeda Staton * Telephone Encounter - Ludmila Ruiz MA - 11/02/2024 10:13 AM EST Please assist in scheduling f/u visit with Dr. Apodaca. * Telephone Encounter - Carmen Apodaca MD - 11/01/2024 10:51 PM EST Needs appt to decide if further refills documented in this encounterAs[facility]12-31-[facility]24 Telephone encounter Note * Telephone Encounter - Ludmila Ruiz MA - 11/02/2024 10:13 AM EST Please assist in scheduling f/u visit with Dr. Apodaca. [facility]12-30-[facility] Telephone encounter Note* Telephone Encounter - Carmen Apodaca MD - 11/01/2024 10:51 PM EST Needs appt to decide if further refills [facility]12-03-2024 Telephone encounter Note* Telephone Encounter - Afsaneh Marshall MA - 10/05/2024 12:43 PM EST DATE OF SERVICE: 09/28/2024 PATIENT'S PHONE NUMBERS: [phone] (home) OR @[facility]@ PROVIDER: Dr. Ureña PROCEDURE: Elective Pain Management Procedure Spoke directly with patient/caregiver Patient states that they are 20% better for 6 hours. Will continue to monitor symptoms. Patient claims to have no problems. Patient will follow up with Dr. Berg. [facility]12-03-2024 Miscellaneous Notes* Telephone Encounter - Afsaneh Marshall MA - 10/05/2024 12:43 PM EST DATE OF SERVICE: 09/28/2024 PATIENT'S PHONE NUMBERS: [phone] (home) OR @[facility]@ PROVIDER: Dr. Ureña PROCEDURE: Elective Pain Management Procedure Spoke directly with patient/caregiver Patient states that they are 20% better for 6 hours. Will continue to monitor symptoms. Patient claims to have no problems. Patient will follow up with Dr. Berg. documented in this encounterAsht[facility]11-15-2024 Telephone encounter Note * Telephone Encounter - Madison De La Cruz RN - 09/17/2024 9:30 AM EST Requester: Pharmacy Patients last Endocrinology visit occurred 07/08/2024. Follow-up evaluation has been established Upcoming Endocrinology Appointments - Next 365 Days Visit Type Date Time Department EST [facility] PATIENT 12/15/2024 3:[address] [facility] . Requested Prescriptions Pending Prescriptions Disp Refills HUMALOG U-100 INSULIN 100 unit/mL injection [Pharmacy Med Name: HUMALOG VIAL 10ML 100U/ML] 90 mL 3 Sig: INJECT 90 UNITS DAILY VIA INSULIN PUMP If patient is due for an appointment please route to provider for refill consideration and also to the endo scheduling pool. PSS NOTE: Patient needs scheduled appointment No [facility]11-15-2024 Miscellaneous Notes* Telephone Encounter - Madison De La Cruz RN - 09/17/2024 9:30 AM EST Requester: Pharmacy Patients last Endocrinology visit occurred 07/08/2024. Follow-up evaluation has been established Upcoming Endocrinology Appointments - Next 365 Days Visit Type Date Time Department EST [place] PATIENT 12/15/2024 3:[address] [facility] . Requested Prescriptions Pending Prescriptions Disp Refills HUMALOG U-100 INSULIN 100 unit/mL injection [Pharmacy Med Name: HUMALOG VIAL 10ML 100U/ML] 90 mL 3 Sig: INJECT 90 UNITS DAILY VIA INSULIN PUMP If patient is due for an appointment please route to provider for refill consideration and also to the endo scheduling pool. PSS NOTE: Patient needs scheduled appointment No documented in this encounterAshtabula [facility] Center11-01-2024 History of Present illness Narrative* Mikael Araya DO - 09/03/2024 12:40 PM EDT Images from the original note were not included. SUBJECTIVE: Jacquie Lantigua is a 58 y.o. male presents with chief complaint of No chief complaint on file. Pt presents for left leg swelling. Pt notes that this is also very painful. Onset for the swelling about a week ago. Pt notes that he has been getting treatments for his sciatica and is not sure if this is causing the swelling. Review of Systems: Review of Systems Problem List: Patient Active Problem List Diagnosis Asthma (CMS/HCC) Eustachian tube dysfunction Gastroesophageal reflux disease Hypertension (CMS/HCC) Hypertriglyceridemia (CMS/HCC) Type 1 diabetes mellitus without complication (CMS/HCC) Ventricular premature contractions Anxiety Background diabetic retinopathy (CMS/HCC) Diabetes mellitus (CMS/HCC) History of hypothyroidism Hypopotassemia Impingement syndrome of shoulder region Impotence of organic origin Internal derangement of right shoulder Shoulder joint pain Major depressive disorder (CMS/HCC) Neuropathy Abnormal MRI, lumbar spine Colon cancer screening Past Medical History: Past Medical History: Diagnosis Date Allergic rhinitis 03/19/2023 Allergies Arthritis Asthma (CMS/HCC) Bronchitis Cellulitis 09/26/2021 Chicken pox Chronic sinus infection Depression (CMS/HCC) Deviated septum Diabetes (CMS/HCC) Elevated white blood cell count, unspecified ETD (eustachian tube dysfunction) GERD (gastroesophageal reflux disease) Granuloma annulare Hyperlipidemia (CMS/HCC) Hypertension (CMS/HCC) Hypertriglyceridemia (CMS/HCC) 03/19/2023 Lipoma of right shoulder Measles Mumps PVC (pulmonary venous congestion) Rotator cuff tear Thoracic disc disorder Thyroid disease (CMS/HCC) Visit for TB skin test 09/2016 Family History: Family History Problem Relation Name Age of Onset Hypertension Mother Stomach cancer Mother Stroke Father Hypertension Father Dementia Father No Known Problems Sister No Known Problems Brother Melanoma Neg Hx Allergies: Allergies Allergen Reactions Adalimumab Other Reaction(s): chest pain, cough Methotrexate Unknown Red Dye #40 (Allura Red) Unknown Sulfamethoxazole Other Reaction(s): Unknown Reaction Sulfamethoxazole-Trimethoprim Unknown Trimethoprim Other Reaction(s): Unknown Reaction Surgical History: Past Surgical History: Procedure Laterality Date COLONOSCOPY 2014 LIPOMA RESECTION 05/26/2019 Excision right neck/ shoulder lipoma w/ AVVargas OTHER SURGICAL HISTORY 05/24/2022 Excision of Right forearm lump [place] EXC SKIN BENIG >4 CM FACE,FACIAL SINUS SURGERY 06/26/2023 pansinusectomy, septoplasty, Dr. Cueto TONSILLECTOMY Social History: Social Drivers of Health Tobacco Use: Medium Risk (08/20/2024) [facility] Patient History Smoking Tobacco Use: Former Smokeless Tobacco Use: Never Passive Exposure: Not on file Alcohol Use: Patient Declined (01/07/2024) AUDIT-C Frequency of Alcohol Consumption: Patient declined Average Number of Drinks: Patient declined Frequency of Binge Drinking: Patient declined Financial Resource Strain: Patient Declined (01/07/2024) Overall Financial Resource Strain (CARDIA) Difficulty of Paying Living Expenses: Patient declined Food Insecurity: Patient Declined (01/07/2024) Hunger Vital Sign Worried About Running Out of Food in the Last Year: Patient declined Ran Out of Food in the Last Year: Patient declined Transportation Needs: No Transportation Needs (01/07/2024) PRAPARE - Transportation Lack of Transportation (Medical): No Lack of Transportation (Non-Medical): No Physical Activity: Sufficiently Active (01/07/2024) Exercise Vital Sign Days of Exercise per Week: 6 days Minutes of Exercise per Session: 90 min Stress: No Stress Concern Present (01/07/2024) [employer] - Occupational Stress Questionnaire Feeling of Stress : Only a little Social Connections: Moderately Isolated (01/07/2024) Social Connection and Isolation Panel [NHANES] Frequency of Communication with Friends and Family: More than three times a week Frequency of Social Gatherings with Friends and Family: More than three times a week Attends Mandaen Services: More than 4 times per year Active Member of Clubs or Organizations: No Attends Club or Organization Meetings: Never Marital Status: Intimate Partner Violence: Not on file Depression: Not at risk (08/11/2024) PHQ-2 PHQ-2 Score: 0 Housing Stability: Patient Declined (01/07/2024) Housing Stability Vital Sign Unable to Pay for Housing in the Last Year: Patient declined Number of Places Lived in the Last Year: Not on file Unstable Housing in the Last Year: Patient declined Health Literacy: Not on file OBJECTIVE: Visit Vitals Smoking Status Former Physical Exam Constitutional: Appearance: Normal appearance. HENT: Head: Normocephalic and atraumatic. Mouth/Throat: Mouth: Mucous membranes are moist. Eyes: Extraocular Movements: Extraocular movements intact. Pupils: Pupils are equal, round, and reactive to light. Cardiovascular: Rate and Rhythm: Normal rate and regular rhythm. Pulses: Normal pulses. Heart sounds: No murmur heard. Pulmonary: Effort: Pulmonary effort is normal. Breath sounds: Normal breath sounds. No wheezing, rhonchi or rales. Abdominal: General: Bowel sounds are normal. Palpations: Abdomen is soft. Tenderness: There is no abdominal tenderness. Musculoskeletal: General: Normal range of motion. Skin: General: Skin is warm. Capillary Refill: Capillary refill takes less than 2 seconds. Neurological: General: No focal deficit present. Mental Status: He is alert and oriented to person, place, and time. Sensory: No sensory deficit. Motor: No weakness. Deep Tendon Reflexes: Reflexes normal. Psychiatric: Mood and Affect: Mood normal. Behavior: Behavior normal. Recent Results (from the past 4 weeks) CBC and differential Collection Time: 08/11/24 1:34 PM Result Value Ref Range WBC 7.8 3.4 - 10.8 x10E3/uL RBC 4.28 4.14 - 5.80 x10E6/uL Hgb 13.2 13.0 - 17.7 g/dL Hct 40.2 37.5 - 51.0 % MCV 94 79 - 97 fL MCH 30.8 26.6 - 33.0 pg MCHC 32.8 31.5 - 35.7 g/dL RDW 12.7 11.6 - 15.4 % Platelets 272 150 - 450 x10E3/uL Neutrophils 44 Not Estab. % Lymphs 32 Not Estab. % Monocytes 12 Not Estab. % Eos 10 Not Estab. % Basos 1 Not Estab. % Neutrophils Abs 3.4 1.4 - 7.0 x10E3/uL Lymphs Abs 2.5 0.7 - 3.1 x10E3/uL MonocytesAbs 0.9 0.1 - 0.9 x10E3/uL Eos Abs 0.8 (H) 0.0 - 0.4 x10E3/uL Baso Abs 0.1 0.0 - 0.2 x10E3/uL Immature Granulocytes 1 Not Estab. % Immature Grans Abs 0.0 0.0 - 0.1 x10E3/uL Comprehensive metabolic panel Collection Time: 08/11/24 1:34 PM Result Value Ref Range Glucose 111 (H) 70 - 99 mg/dL BUN 18 6 - 24 mg/dL Creat 1.03 0.76 - 1.27 mg/dL EGFR 84 >59 mL/min/1.73 BUN/Creat Ratio 17 9 - 20 Sodium 139 134 - 144 mmol/L Potassium 5.0 3.5 - 5.2 mmol/L Chloride 102 96 - 106 mmol/L Carbon Dioxide 25 20 - 29 mmol/L Calcium 10.0 8.7 - 10.2 mg/dL Protein Total 6.6 6.0 - 8.5 g/dL Albumin 4.5 3.8 - 4.9 g/dL Globulin Total 2.1 1.5 - 4.5 g/dL Bili Total <0.2 0.0 - 1.2 mg/dL Alk Phosphatase 64 44 - 121 IU/L AST 161 (H) 0 - 40 IU/L ALT 316 (H) 0 - 44 IU/L Urinalysis with microscopic Collection Time: 08/11/24 1:34 PM Result Value Ref Range Specific [place] Urine 1.013 1.005 - 1.030 pH Urine 6.5 5.0 - 7.5 Color Urine Yellow Yellow Appearance Urine Clear Clear WBC Esterase Urine Negative Negative Protein Urine Negative Negative/Trace Glucose Urine Negative Negative Ketones Urine Negative Negative Occult Blood Urine Negative Negative Bilirubin Urine Negative Negative Urobilinogen,Semi-Qn Urine 0.2 0.2 - 1.0 mg/dL Nitrite Urine Negative Negative Ur Microscopic Comment Micro Exam See below: Ur Microscopic Reflex Collection Time: 08/11/24 1:34 PM Result Value Ref Range WBC Ur None seen 0 - 5 /hpf RBC Ur None seen 0 - 2 /hpf Epithelial Cells (non renal) Ur None seen 0 - 10 /hpf Casts Ur None seen None seen /lpf Bacteria Ur None seen None seen/Few Specimen Status Report Collection Time: 08/11/24 1:34 PM Result Value Ref Range Clindamycin Comment ASSESSMENT AND PLAN: Assessment/Plan Diagnoses and all orders for this visit: Primary hypertension ([facility]) Record Blood Pressures 2-4 times weekly and record. Return with readings at next appointment. Call with readings if sees significant changes Neuropathy - tiZANidine (Zanaflex) 4 MG tablet; Take 1 tablet (4 mg) by mouth every 6 (six) hours if needed for muscle spasms - HYDROcodone-acetaminophen ([place]) 5-325 MG tablet; Take 1 tablet by mouth every 6 (six) hours if needed for severe pain for up to 5 days Type 1 diabetes mellitus without complication ([facility]) Problem is stable, will continue with current treatment plan. Call or return to clinic if any changes occur Lumbosacral radiculopathy at L5 Patient advised to return if symptoms worsen and/or persist despite treatment. Cont fu with neurology and neurosurgery for injections Spinal stenosis, unspecified spinal region - tiZANidine (Zanaflex) 4 MG tablet; Take 1 tablet (4 mg) by mouth every 6 (six) hours if needed for muscle spasms - HYDROcodone-acetaminophen ([place]) 5-325 MG tablet; Take 1 tablet by mouth every 6 (six) hours if needed for severe pain for up to 5 days Sciatica of left side - gabapentin (Neurontin) 800 MG tablet; Take 1.5 tablets (1,200 mg) by mouth in the morning and 1.5tablets (1,200 mg) in the evening and 1.5 tablets (1,200 mg) before bedtime. - tiZANidine (Zanaflex) 4 MG tablet; Take 1 tablet (4 mg) by mouth every 6 (six) hours if needed for muscle spasms - HYDROcodone-acetaminophen ([place]) 5-325 MG tablet; Take 1 tablet by mouth every 6 (six) hours if needed for severe pain for up to 5 days Pain - gabapentin (Neurontin) 800 MG tablet; Take 1.5 tablets (1,200 mg) by mouth in the morning and 1.5tablets (1,200 mg) in the evening and 1.5 tablets (1,200 mg) before bedtime. Left leg pain - Vascular US lower extremity venous duplex left; Future Edema, unspecified type - Vascular US lower extremity venous duplex left; Future Updated Medications: I have reviewed and reconciled the history and medication list with the patient today. Current Outpatient Medications: albuterol HFA (ProAir HFA) 90 mcg/act inhaler, Inhale 2 puffs every 4 (four) hours if needed for shortness of breath or wheezing, Disp: , Rfl: Ascorbic Acid (vitamin C) 1000 MG tablet, Take 1,000 mg by mouth 1 (one) time each day at the same time., Disp: , Rfl: ASPIRIN 81 MG chewable tablet, Chew 81 mg 1 (one) time., Disp: , Rfl: cyclobenzaprine (Flexeril) 10 MG tablet, Take 1 tablet (10 mg) by mouth at bedtime, Disp: , Rfl: famotidine (Pepcid) 20 MG tablet, Take 20 mg by mouth in the morning., Disp: , Rfl: FLUoxetine (PROzac) 40 MG capsule, TAKE 1 CAPSULE DAILY, Disp: 90 capsule, Rfl: 3 fluticasone (Flonase) 50 MCG/ACT nasal spray, Administer 2 sprays into each nostril in the morning.Shake gently. Before first use, prime pump. After use, clean tip and replace cap.., Disp: 16 g, Rfl: 11 fluticasone-salmeterol (Advair HFA) 230-21 MCG/ACT inhaler, Inhale 2 puffs in the morning and 2 puffs before bedtime., Disp: , Rfl: gabapentin (Neurontin) 800 MG tablet, Take 1 tablet (800 mg) by mouth in the morning and 1 tablet (800 mg) in the evening and 1 tablet (800 mg) before bedtime., Disp: 270 tablet, Rfl: 0 ibuprofen 800 MG tablet, Take 1 tablet (800 mg) by mouth 3 (three) times a day as needed for moderate pain or mild pain, Disp: , Rfl: Icosapent Ethyl (Vascepa) 1 g capsule, TAKE 2 CAPSULES TWICE A DAY WITH MEALS, Disp: 360 capsule, Rfl: 3 insulin lispro (HumaLOG) 100 UNIT/ML injection, Inject under the skin 3 (three) times a day with meals., Disp: , Rfl: levothyroxine (Synthroid, Levoxyl) 50 MCG tablet, TAKE 2 TABLETS ONCE DAILY IN THE MORNING ON AN EMPTY STOMACH, Disp: 180 tablet, Rfl: 3 lisinopril 20 MG tablet, TAKE 1 TABLET DAILY, Disp: 90 tablet, Rfl: 3 minocycline (Dynacin) 100 MG tablet, Take 100 mg by mouth every 30 (thirty) days, Disp: , Rfl: montelukast (Singulair) 10 MG tablet, TAKE 1 TABLET DAILY IN THE EVENING, Disp: 90 tablet, Rfl: 3 Multiple Vitamins-Minerals (MULTIVITAMIN ADULT, MINERALS, PO), Multivitamin, Disp: , Rfl: ofloxacin (Floxin) 400 MG tablet, Take 400 mg by mouth every 30 (thirty) days, Disp: , Rfl: rifAMPin (Rifadin) 300 MG capsule, Take 600 mg by mouth every 30 (thirty) days, Disp: , Rfl: rosuvastatin (Crestor) 20 MG tablet, TAKE 1 TABLET DAILY, Disp: 90 tablet, Rfl: 3 triamcinolone (Kenalog) 0.1 % cream, Apply 1 Application topically in the morning and 1 Applicationin the evening., Disp: , Rfl: documented in this encounterRusk Rehabilitation [id number] NoteHNO ID: [id number] Author: MALIHA BERG MD Service: ? Author [...] SURGICAL HISTORY Procedure Laterality Date ADENOIDECTOMY PRIMARY Adenoidectomy LAPS ABD PRTMANDOMENTUM DX W/WO SPEC BR/WA SPX 05/08 Laparoscopy: mass in the omentum TONSILLECTOMY PRIMARY/SECONDARY Tonsillectomy FAMILY HISTORY Problem Relation Age of [...] inhalerInhale 4 Puffs as instructed once daily.Disp: (more content not included)...[facility] [id number] History of Present illness Narrative* Maliha Berg MD - 08/20/2024 9:24 AM EDT Images from the original note were not included. SPINE SURGERY NEW PATIENT This is an [...] 2024 without any history of injury or fall.Pain is radiating to left lower extremity up to the feet more towards big toe. Pain is constant, aggravated by prolonged sitting and nighttime. Pain is minimally better with activity. He also noticednumbness over left lower extremity more intense over left chavez and feet. Denies right leg pain or numbness. Denies weakness. Denies bowel or bladder dysfunction. He was evaluated at an outside facility for lower back and leg pain with imaging. Imaging showed bone signal changes. Further workup was done to rule out metastatic disease/primary bone lesion. He ishere for second opinion. History of omental mass [...] <AGE 11 age 5 Adenoidectomy LAPS ABD PRTM&OMENTUM DX W/WO SPEC BR/WA SPX 05/08 Laparoscopy: [...] Dye Unknown MEDICATIONS: gabapentin (NEURONTIN) 400 mg capsule^Take 400 mg by mouth.^Disp: ^Rfl: famotidine (PEPCID) 20 mg tablet^Take 1 tablet by mouth two times a day.^Disp: 180 tablet^Rfl: 3 rifAMPin (RIFADIN) 300 mg capsule^Take 2 pills once monthly^Disp: 16 capsule^Rfl: 0 ofloxacin (FLOXIN) 400 mg tablet^Take 1 pill once monthly^Disp: 8 tablet^Rfl: 0 Minocycline HCl 100 mg tablet^Take 1 pill once monthly^Disp: 8 tablet^Rfl: 0 triamcinolone acetonide (KENALOG) 0.1 % cream^Apply 1 application to affected area two times a day.(No more than 21 days per month)^Disp: 453.6 g^Rfl: 3 HUMALOG U-100 INSULIN 100 unit/mL injection^INJECT 90 UNITS DAILY VIA INSULIN PUMP^Disp: 100 mL^Rfl: 3 fluticasone (FLONASE) 50 mcg/actuation nasal spray^Use in the nose.^Disp: ^Rfl: icosapent ethyl (VASCEPA) 1 gram^Take 1 g by mouth. 2 caps in the AM and 2 caps in the PM^Disp: ^Rfl: levothyroxine (SYNTHROID) 50 mcg tablet^TAKE 2 TABLETS DAILY^Disp: 180 tablet^Rfl: 4 rosuvastatin (CRESTOR) 20 mg tablet^TAKE ONE AND ONE-HALF TABLETS ONCE DAILY^Disp: 135 tablet^Rfl: 2 ibuprofen (MOTRIN) 800 mg tablet^Take 800 mg by mouth every 6 hours as needed.^Disp: ^Rfl: cyclobenzaprine (FLEXERIL) 10 mg tablet^Take 10 mg by mouth three times daily as needed.^Disp: ^Rfl: PROAIR HFA 90 mcg/actuation inhaler^Inhale 2 Puffs as instructed as needed.^Disp: ^Rfl: ADVAIR HFA 115-21 mcg/actuation inhaler^Inhale 4 Puffs as instructed once daily.^Disp: ^Rfl: MUCINEX 600 mg 12 hr tablet^Take 2 tablets by mouth once daily as needed.^Disp: ^Rfl: 0 Subcutaneous Insulin Pump (ACCU-CHEK SPIRIT INSULIN PUMP) misc^Basal rates: 24:00 --1.6units/hr; 030 0:-2.3units/hr;06:00-1.8;11:00-1.8;12:00-2.0;16:00-2.2;19:00-2.7;21:00-2.4 ;22:00-1.6. Bolus: 2 unit/6 Gms CHO each meal; correction : 1 unit every 25 mg > 125 mg/dl. Whn wrk. hrd: tmp bas at 80%^Disp: 1 Each^Rfl: 0 lisinopril (ZESTRIL) 2.5 mg tablet^Take 4 tablets by mouth once daily.^Disp: 90 tablet^Rfl: 3 (Patient taking differently: Take 2.5 mg by mouth once daily.) aspirin, enteric coated (ECOTRIN LOW STRENGTH) 81 mg ORAL EC tablet^Take 1 tablet by mouth once daily.^Disp: ^Rfl: 0 fluoxetine hcl(PROZAC 20 MG CAP)^3 tabs daily^Disp: 0^Rfl: 0 ONE TOUCH ULTRA TEST STRIPS^chekc 6-8 timea a day(insulin pump)^Disp: 700^Rfl: 3 ONE TOUCH FINE POINT LANCET^uses 6-8 a day^Disp: 700^Rfl: 3 CENTRUM ECHINACEA CAPSULE 100MG PO^^Disp: ^Rfl: 0 REVIEW OF SYSTEMS: PAIN ASSESSMENT: See [...] BULK: Normal and symmetrical in the upper & lower extremities. MUSCLE TONE: Normal. MOTOR: 5/5 [...] T2/hypointense T1 lesion within the vertebral body ofL1. There is a hyperintense T2/hypointense T1 lesion within the vertebral body of L2 measuring appro ximately 1.4 cm. A hyperintense T2/hypointense T1 lesion [...] lesion or pathologic enhancement of the visualized finalcord or cauda equina. Visualized paravertebral soft tissues [...] 2024 without any history of injury or fall.Pain is radiating to left lower extremity up to the feet more towards big toe. Pain is constant, aggravated by prolonged sitting and nighttime. Pain is minimally better with activity. He also noticednumbness over left lower extremity more intense over left chavez and feet. Denies right leg pain or numbness. Denies weakness. Denies bowel or bladder dysfunction. He was evaluated at an outside facility for lower back and leg pain with imaging. Imaging showed bone signal changes. Further workup was done to rule out metastatic disease/primary bone lesion. He ishere for second opinion. History of omental mass [...] at L4-5 level. Left L5-S1 foraminal disc herniationwith indentation over left L5 root. No significant [...] which includes continuing gabapentin 800 mg 3 timesa day, muscle relaxer, pain medications, right L5-S1 [...] not it completed. We will also review CTonce it is completed. At this time I [...] August 20, 2024 TIME: 9:24 AM PAGER: documented in this encounterAshtabula [facility]10-09-2024 History of Present illness Narrative* Mikael Araya, DO - 08/11/2024 12:20 PM EDT Images from the original note were not included. SUBJECTIVE: Jacquie Lantigua is a 58 y.o. male presents with chief complaint of Back Pain Back pain: Pt presents to the office recurrent back pain. Since June. Pt states he is still in a lot of painin low back that is still radiating down left leg. Pt states it feels like electricity is shootingdown leg). He did have an epidural injection with spine doctor that relieved pain for approx 40 hours. Pt states he is unable to sleep due to the pain. He is having self take time off work due to thepain. Has been taking cyclobenzaprine, gabapentin, and ibuprofen with temp relief. Has initial visit with neurosurgery on 08/17. Side pain: Has complaints of left side pain a couple days ago. Pt states it did go away but concerned as has been taking ibuprofen regularly. Review of Systems: Review of Systems All other systems reviewed and are negative. Problem List: Patient Active Problem List Diagnosis Asthma (CMS/HCC) Eustachian tube dysfunction Gastroesophageal reflux disease Hypertension (CMS/HCC) Hypertriglyceridemia (CMS/HCC) Type 1 diabetes mellitus without complication (CMS/HCC) Ventricular premature contractions Anxiety Background diabetic retinopathy (CMS/HCC) Diabetes mellitus (CMS/HCC) History of hypothyroidism Hypopotassemia Impingement syndrome of shoulder region Impotence of organic origin Internal derangement of right shoulder Shoulder joint pain Major depressive disorder (CMS/HCC) Neuropathy Abnormal MRI, lumbar spine Colon cancer screening Past Medical History: Past Medical History: Diagnosis Date Allergic rhinitis 03/19/2023 Allergies Arthritis Asthma (CMS/HCC) Bronchitis Cellulitis 09/26/2021 Chicken pox Chronic sinus infection Depression (CMS/HCC) Deviated septum Diabetes ([facility]/HCC) Elevated white blood cell count, unspecified ETD (eustachian tube dysfunction) GERD (gastroesophageal reflux disease) Granuloma annulare Hyperlipidemia ([facility]/HCC) Hypertension ([facility]/HCC) Hypertriglyceridemia ([facility]/HCC) 03/19/2023 Lipoma of right shoulder Measles Mumps PVC (pulmonary venous congestion) Rotator cuff tear Thoracic disc disorder Thyroid disease ([facility]) Visit for TB skin test 09/2016 Family History: Family History Problem Relation Name Age of Onset Hypertension Mother Stomach cancer Mother Stroke Father Hypertension Father Dementia Father No Known Problems Sister No Known Problems Brother Melanoma Neg Hx Allergies: Allergies Allergen Reactions Adalimumab Other Reaction(s): chest pain, cough Methotrexate Unknown Red Dye #40 (Allura Red) Unknown Sulfamethoxazole Other Reaction(s): Unknown Reaction Sulfamethoxazole-Trimethoprim Unknown Trimethoprim Other Reaction(s): Unknown Reaction Surgical History: Past Surgical History: Procedure Laterality Date COLONOSCOPY 2014 LIPOMA RESECTION 05/26/2019 Excision right neck/ shoulder lipoma w/ AVVargas OTHER SURGICAL HISTORY 05/24/2022 Excision of Right forearm lump [place] EXC SKIN BENIG >4 CM FACE,FACIAL SINUS SURGERY 06/26/2023 pansinusectomy, septoplasty, Dr. Cueto TONSILLECTOMY Social History: Social Determinants of Health Tobacco Use: Medium Risk (08/11/2024) Patient History Smoking Tobacco Use: Former Smokeless Tobacco Use: Never Passive Exposure: Not on file Alcohol Use: Patient Declined (01/07/2024) AUDIT-C Frequency of Alcohol Consumption: Patient declined Average Number of Drinks: Patient declined Frequency of Binge Drinking: Patient declined Financial Resource Strain: Patient Declined (01/07/2024) Overall Financial Resource Strain (CARDIA) Difficulty of Paying Living Expenses: Patient declined Food Insecurity: Patient Declined (01/07/2024) Hunger Vital Sign Worried About Running Out of Food in the Last Year: Patient declined Ran Out of Food in the Last Year: Patient declined Transportation Needs: No Transportation Needs (01/07/2024) PRAPARE - Transportation Lack of Transportation (Medical): No Lack of Transportation (Non-Medical): No Physical Activity: Sufficiently Active (01/07/2024) Exercise Vital Sign Days of Exercise per Week: 6 days Minutes of Exercise per Session: 90 min Stress: No Stress Concern Present (01/07/2024) [employer] - Occupational Stress Questionnaire Feeling of Stress : Only a little Social Connections: Moderately Isolated (01/07/2024) Social Connection and Isolation Panel [NHANES] Frequency of Communication with Friends and Family: More than three times a week Frequency of Social Gatherings with Friends and Family: More than three times a week Attends Mandaen Services: More than 4 times per year Active Member of Clubs or Organizations: No Attends Club or Organization Meetings: Never Marital Status: Intimate Partner Violence: Not on file Depression: Not at risk (08/11/2024) PHQ-2 PHQ-2 Score: 0 Housing Stability: Patient Declined (01/07/2024) Housing Stability Vital Sign Unable to Pay for Housing in the Last Year: Patient declined Number of Places Lived in the Last Year: Not on file Unstable Housing in the Last Year: Patient declined Health Literacy: Not on file OBJECTIVE: Visit Vitals Ht 5' 8 Wt 200 lb BMI 30.41 kg/m Smoking Status Former BSA 2.09 m Physical Exam Constitutional: Appearance: Normal appearance. HENT: Head: Normocephalic and atraumatic. Mouth/Throat: Mouth: Mucous membranes are moist. Eyes: Extraocular Movements: Extraocular movements intact. Pupils: Pupils are equal, round, and reactive to light. Cardiovascular: Rate and Rhythm: Normal rate and regular rhythm. Pulses: Normal pulses. Heart sounds: No murmur heard. Pulmonary: Effort: Pulmonary effort is normal. Breath sounds: Normal breath sounds. No wheezing, rhonchi or rales. Abdominal: General: Bowel sounds are normal. Palpations: Abdomen is soft. Tenderness: There is no abdominal tenderness. Musculoskeletal: General: Normal range of motion. Skin: General: Skin is warm. Capillary Refill: Capillary refill takes less than 2 seconds. Neurological: General: No focal deficit present. Mental Status: He is alert and oriented to person, place, and time. Sensory: No sensory deficit. Motor: No weakness. Deep Tendon Reflexes: Reflexes normal. Psychiatric: Mood and Affect: Mood normal. Behavior: Behavior normal. No results found for this or any previous visit (from the past 672 hour(s)). ASSESSMENT AND PLAN: Assessment/Plan Diagnoses and all orders for this visit: Lumbosacral radiculopathy at L5 Reviewed labs and/or imaging at ov today. Will continue current treatment regimen and follow up at next scheduled visit unless problems arise. - CBC and differential; Future Neuropathy Should improve with the above prescribed medications. Call if not improved despite treatment. - CBC and differential; Future Type 1 diabetes mellitus without complication (CMS/HCC) Problem is stable, will continue with current treatment plan. Call or return to clinic if any changes occur - CBC and differential; Future - Comprehensive metabolic panel; Future Sciatica of left side - gabapentin (Neurontin) 800 MG tablet; Take 1 tablet (800 mg) by mouth in the morning and 1 tablet(800 mg) in the evening and 1 tablet (800 mg) before bedtime. - cyclobenzaprine (Flexeril) 10 MG tablet; Take 1 tablet (10 mg) by mouth at bedtime - acetaminophen (Tylenol Extra Strength) 500 MG tablet; Take 2 tablets (1,000 mg) by mouth every 6 (six) hours if needed for mild pain for up to 10 days Pain Patient advised to return if symptoms worsen and/or persist despite treatment. Did make several adjustments today. Has fu with neurosurgery - gabapentin (Neurontin) 800 MG tablet; Take 1 tablet (800 mg) by mouth in the morning and 1 tablet(800 mg) in the evening and 1 tablet (800 mg) before bedtime. - cyclobenzaprine (Flexeril) 10 MG tablet; Take 1 tablet (10 mg) by mouth at bedtime - ibuprofen 800 MG tablet; Take 1 tablet (800 mg) by mouth 3 (three) times a day as needed for moderate pain or mild pain Flank pain - Comprehensive metabolic panel; Future - Urinalysis with reflex microscopic; Future Background diabetic retinopathy (CMS/HCC) - cyclobenzaprine (Flexeril) 10 MG tablet; Take 1 tablet (10 mg) by mouth at bedtime Moderate asthma with exacerbation, unspecified whether persistent (CMS/HCC) Problem is stable, will continue with current treatment plan. Call or return to clinic if any changes occur - fluticasone-salmeterol (Advair HFA) 230-21 MCG/ACT inhaler; Inhale 2 puffs in the morning and 2 puffs before bedtime. - albuterol HFA (ProAir HFA) 90 mcg/act inhaler; Inhale 2 puffs every 4 (four) hours if needed for shortness of breath or wheezing Updated Medications: I have reviewed and reconciled the history and medication list with the patient today. Current Outpatient Medications: Advair HFA 230-21 MCG/ACT inhaler, USE 2 INHALATIONS TWICE A DAY, Disp: 36 g, Rfl: 3 albuterol HFA (ProAir HFA) 90 mcg/act inhaler, Inhale 2 puffs every 4 (four) hours if needed for shortness of breath or wheezing, Disp: 25.5 g, Rfl: 3 Ascorbic Acid (vitamin C) 1000 MG tablet, Take 1,000 mg by mouth 1 (one) time each day at the same time., Disp: , Rfl: ASPIRIN 81 MG chewable tablet, Chew 81 mg 1 (one) time., Disp: , Rfl: cyclobenzaprine (Flexeril) 10 MG tablet, Take 1 tablet (10 mg) by mouth at bedtime, Disp: 40 tablet, Rfl: 3 famotidine (Pepcid) 20 MG tablet, Take 20 mg by mouth in the morning., Disp: , Rfl: FLUoxetine (PROzac) 40 MG capsule, TAKE 1 CAPSULE DAILY, Disp: 90 capsule, Rfl: 3 fluticasone (Flonase) 50 MCG/ACT nasal spray, Administer 2 sprays into each nostril in the morning.Shake gently. Before first use, prime pump. After use, clean tip and replace cap.., Disp: 16 g, Rfl: 11 gabapentin (Neurontin) 600 MG tablet, Take 1 tablet (600 mg) by mouth in the morning and 1 tablet (600 mg) in the evening and 1 tablet (600 mg) before bedtime., Disp: 270 tablet, Rfl: 3 ibuprofen 800 MG tablet, Take 1 tablet (800 mg) by mouth 3 (three) times a day as needed for moderate pain or mild pain, Disp: 120 tablet, Rfl: 3 Icosapent Ethyl (Vascepa) 1 g capsule, TAKE 2 CAPSULES TWICE A DAY WITH MEALS, Disp: 360 capsule, Rfl: 3 insulin lispro (HumaLOG) 100 UNIT/ML injection, Inject under the skin 3 (three) times a day with meals., Disp: , Rfl: levothyroxine (Synthroid, Levoxyl) 50 MCG tablet, TAKE 2 TABLETS ONCE DAILY IN THE MORNING ON AN EMPTY STOMACH, Disp: 180 tablet, Rfl: 3 lisinopril 20 MG tablet, TAKE 1 TABLET DAILY, Disp: 90 tablet, Rfl: 3 minocycline (Dynacin) 100 MG tablet, Take 100 mg by mouth every 30 (thirty) days, Disp: , Rfl: montelukast (Singulair) 10 MG tablet, TAKE 1 TABLET DAILY IN THE EVENING, Disp: 90 tablet, Rfl: 3 Multiple Vitamins-Minerals (MULTIVITAMIN ADULT, MINERALS, PO), Multivitamin, Disp: , Rfl: ofloxacin (Floxin) 400 MG tablet, Take 400 mg by mouth every 30 (thirty) days, Disp: , Rfl: rifAMPin (Rifadin) 300 MG capsule, Take 600 mg by mouth every 30 (thirty) days, Disp: , Rfl: rosuvastatin (Crestor) 20 MG tablet, TAKE 1 TABLET DAILY, Disp: 90 tablet, Rfl: 3 triamcinolone (Kenalog) 0.1 % cream, Apply 1 Application topically in the morning and 1 Applicationin the evening., Disp: , Rfl: documented in this encounterRusk Rehabilitation [id number] Telephone encounter Note* Telephone Encounter - Padmaja Acevedo LPN - 07/21/2024 8:36 AM EDT Order approved [facility]09-18-2024 Miscellaneous Notes* Telephone Encounter - Padmaja Acevedo LPN - 07/21/2024 8:36 AM EDT Order approved * Telephone Encounter - Padmaja Acevedo LPN - 07/21/2024 8:30 AM EDT Spine Surgery Consult formatted for review Pt notified via . documented in this encounterAshtabula [facility]09-[facility] Telephone encounter Note * Telephone Encounter - Padmaja Acevedo LPN - 07/21/2024 8:30 AM EDT Spine Surgery Consult formatted for review Pt notified via . [facility]09-13-2024 Telephone encounter Note* Telephone Encounter - Dora Arevalo MA - 07/16/2024 3:27 PM EDT [employer] form received and placed on providers desk. [id number] Self Admin inj and [id number] REplacement battery 1.5V [facility]09-13-2024 Miscellaneous Notes* Telephone Encounter - Dora Arevalo MA - 07/16/2024 3:27 PM EDT [employer] form received and placed on providers desk. [id number] Self Admin inj and [id number] REplacement battery 1.5V documented in this encounterAshtabula [facility] Center09-10-2024 Telephone encounter Note * Telephone Encounter - Afsaneh Marshall MA - 07/13/2024 12:11 PM EDT Called and spoke with patient. Patient states had about 48 hours of relief from spine injection on 06/29/2024. Patient is currently taking gabapentin, Motrin 800 mg and Flexeril. Advised patient Dr. Ureña is out of the office until next week. Advised patient to continue above medications, use ice/heat as tolerated. If no improvement by next week, contact the office for Dr. Ureña' recommendations. [facility]09-10-2024 Miscellaneous Notes* Telephone Encounter - Afsaneh Marshall MA - 07/13/2024 12:11 PM EDT Called and spoke with patient. Patient states had about 48 hours of relief from spine injection on 06/29/2024. Patient is currently taking gabapentin, Motrin 800 mg and Flexeril. Advised patient Dr. Ureña is out of the office until next week. Advised patient to continue above medications, use ice/heat as tolerated. If no improvement by next week, contact the office for Dr. Ureña' recommendations. * Telephone Encounter - Yael Villar RN - 07/13/2024 10:07 AM EDT The pt is calling, he had a [...] in contacts and may leave a message. documented in this encounterAshtabula [facility] Center09-10-2024 Telephone encounter Note * Telephone Encounter - Yael Villar RN - 07/13/2024 10:07 AM EDT The pt is calling, he had a [...] in contacts and may leave a message. [facility]09-05-2024 Instructions* Patient Instructions* Glo Sandra APRN.ROD WELDER - 07/08/2024 3:46 PM EDT 1) would recommend upgrading pump to 780 G 2) continue your current pump settings BASAL Midnight 1.6 4AM 2.3 6AM 1.80 Noon 2.00 4PM 2.20 7PM 2.70 9PM 2.40 10PM 1.60 BOLUS 1 units per 4.5 grams CHO ISF 1 unit to lower by 25 mg/dL 3) continue levothyroxine 50 mcg/day (two tabs) daily 4) see Dr. Villagomez in 6 months, labs prior documented in this encounterAshtabula [facility] Center09-05-2024 NoteHNO ID: [id number] Author: GLO SANDRA APRN.CHRISTINA Service: ? Author Type: Nurse Practitioner Type: [...] evaluation- states eyes are stable. Now using [employer]el[employer] 770 G- most recent settings as below. [...] Our staff was unable to login to [employer], therefore pump / sensor was not able [...] PAST SURGICAL HISTORY age 5: ADENOIDECTOMY PRIMARY Comment: Adenoidectomy 05/08: LAPS ABD PRTMANDOMENTUM DX W/WO SPEC BR/WA SPX Comment: Laparoscopy: mass in the omentum age 5: TONSILLECTOMY PRIMARY/SECONDARY Comment: Tonsillectomy FAMILY HISTORY Problem Relation Age [...] Eva fuentesk. hrd: tmp bas at 80% 1 Each [...] GENERAL: No weight loss, malaise or fevers (more content not included)...[facility] History of Present illness Narrative* Glo Sandra, JANIE.ROD WELDER - 07/08/2024 3:30 PM EDT Images from the original note were not included. HISTORY OF PRESENT ILLNESS Mr. Lantigua is a 58 year old male presenting here today for a follow up of type 1 diabetes mellitus,hyperlipidemia and hypothyroidism. Last visit with Dr. Villagomez was 12/2023. As I recall, he was diagnosed with type 1 diabetes in 1990. Microvascular complications include retinopathy hx of photocoagulation. He is uptodate with ophthalmology evaluation- states eyes are stable. Now using [employer] 770 G- most recent settings as below. [...] Our staff was unable to login to [employer], therefore pump / sensor was not able [...] <AGE 11 Comment: Adenoidectomy 05/08: LAPS ABD PRTM&OMENTUM DX W/WO SPEC BR/WA SPX Comment: Laparoscopy: [...] application to affected area two times a day.(No more than 21 days per month) 453.6 [...] INSULIN PUMP) misc Basal rates: 24:00 --1.6units/hr; 030 0:-2.3units/hr;06:00-1.8;11:00-1.8;12:00-2.0;16:00-2.2;19:00-2.7;21:00-2.4 ;22:00-1.6. Bolus: 2 unit/6 Gms CHO each meal; correction : 1 unit every 25 mg > 125 mg/dl. Eva fuentesk. hrd: tmp bas at 80% 1 Each 0 lisinopril (ZESTRIL) 2.5 mg tablet Take 4 tablets by mouth once daily. (Patient taking differently:Take 2.5 mg by mouth once daily.) 90 [...] kg (198 lb 13.7 oz) BMI 30.24 kg/m General appearance: Well appearing, alert, in no [...] 12/28/2003 111 [facility] CMP (CMP) (FOR [facility]OTE [facility] USE) Component Ref Range & Units 2 wk ago SODIUM 136 - 145 mmol/L 137 POTASSIUM 3.5 - 5.1 mmol/L 4.4 CHLORIDE 98 - 107 mmol/L 101 CARBON DIOXIDE 21.0 - 32.0 mmol/L 24.7 ANION GAP 15.7 GLUCOSE 74 - 106 mg/dL 162 High BLOOD UREA NITROGEN 7.0 - 18.0 mg/dL 14.0 CREATININE 0.70 - 1.30 mg/dL 1.00 [facility] EGFR-AF LIBYAN >=60 >60 [facility] EGFR-NON AF LIBYAN >=60 >60 BUN CREATININE RATIO 14.0 CALCIUM [...] 2.9 ALBUMIN GLOBULIN RATIO 1.4 Resulting Agency [facility] Specimen Collected: 06/18/24 6:24 AM Performed by: [facility] Resulted: 06/18/24 4:33 PM Received From: [facility] Result Received: 06/29/24 8:38 AM ALL LIPID PROFILE (FASTING) Component Ref Range & Units 2 wk ago Comments TRIGLYCERIDES <=150 [...] MODERATE RISK >11.0 HIGH RISK Resulting Agency [facility] Specimen Collected: 06/18/24 6:24 AM Performed by: [facility] Last Resulted: 06/18/24 4:33 PM Received From: [facility] Result Received: 06/29/24 8:38 AM Microalbumin / creatinine urine ratio Specimen: Urine - Urine specimen obtained by clean catch procedure (specimen) Component Ref Range & Units 4 wk ago Comments CREATININE, RANDOM URINE 20 - 320 mg/dL 43 ALBUMIN, URINE See Note: mg/dL <0.2 Reference Range: Reference Range Not established ALBUMIN/CREATININE RATIO, RANDOM URINE <30 mg/g creat NOTE Resulting Agency [place] Resulting Agency Comment Specimen Collected: 06/09/24 2:17 PM Performed by: [facility] Resulted: 06/13/24 7:38 AM Received From: [facility] Result Received: 06/29/24 8:38 AM TSH Specimen: Blood - Venous blood specimen (specimen) Component Ref Range & Units 2 mo ago TSH 0.40 - 4.50 mIU/L 1.67 Resulting Agency [facility] Narrative Performed by [facility] Specimen Collected: 04/29/24 11:31 AM Performed by: [facility] Resulted: 04/30/24 6:04 AM Received From: [facility] Result Received: 05/18/24 9:14 AM ALL THYROID STIM HORMONE Component Ref Range & Units 2 wk ago THYROID STIMULATING HORMONE 0.358 - 3.740 uIU/mL 4.751 High Resulting Agency [facility] Specimen Collected: 06/18/24 6:24 AM Performed by: [facility] Resulted: 06/18/24 4:33 PM Received From: [facility] Result Received: 06/29/24 8:38 AM Hemoglobin A1c Specimen: Blood - Venous blood specimen (specimen) Component Ref Range & Units 4 wk ago Comments Hemoglobin A1C <5.7 % of total Hgb 7.6 High Resulting Agency [facility] Specimen Collected: 06/09/24 2:17 PM Performed by: [facility] Resulted: 06/13/24 7:38 AM Received From: [facility] Result Received: 06/29/24 8:38 AM IMPRESSION: Mr. [...] prior (printed requisitions, patient will obtain at [place]) The patient was reminded to check his [...] factor. This patient is currently at target onstatin therapy. 4. Antiplatelet therapy: Low dose antiplatelet therapy is recommended for patients with diabetes atincreased cardiovascular risk. This includes most men over [...] of this document that has been added/copied & pasted from other documents has been reviewed for accuracy and updated as appropriate at the time of the patient encounter. Glo Sandra APRN.ROD WELDER documented in this encounterAshtabula [facility]08-29-2024 Telephone encounter Note * Telephone Encounter - Afsaneh Marshall MA - 07/01/2024 11:58 AM EDT DATE OF SERVICE: 06/29/2024 PATIENT'S PHONE NUMBERS: [phone] (home) OR @[facility]@ PROVIDER: Dr. Ureña PROCEDURE: Elective Pain Management Procedure Spoke directly with patient/caregiver Patient states that they are 90-100% better until this morning. States will continue to monitor symptoms to see if any improvement in 7-10 days. Patient claims to have no problems. [facility]08-29-2024 Miscellaneous Notes* Telephone Encounter - Afsaneh Marshall MA - 07/01/2024 11:58 AM EDT DATE OF SERVICE: 06/29/2024 PATIENT'S PHONE NUMBERS: [phone] (home) OR @[facility]@ PROVIDER: Dr. Ureña PROCEDURE: Elective Pain Management Procedure Spoke directly with patient/caregiver Patient states that they are 90-100% better until this morning. States will continue to monitor symptoms to see if any improvement in 7-10 days. Patient claims to have no problems. documented in this encounterAshtabula [facility] Center08-27-2024 History of Present illness Narrative* Bucky Steward MD - 06/29/2024 3:15 PM EDT Images from the original note were not included. Patient is status post a colonoscopy because of some lesions seen on MRI of the spine. Colonoscopy was normal. Patient is without abdominal complaints. He states he did have some back injections performed today. On examination, he is awake alert and in no acute distress. 1. Abnormal MRI, lumbar spine 2. Colon cancer screening Next screening colonoscopy in 10 years. Patient will be discharged from the office and continue to follow with his primary care physician. documented in this encounterRusk Rehabilitation [id number] Telephone encounter Note* Telephone Encounter - Afsaneh Marshall MA - 06/07/2024 10:40 AM EDT Patient was seen in office today. Spoke to patient in reguards to pre procedure instructions. 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 Pt advised to arrive 30 min prior. [...] medications as needed. Advised on location of [address] Pt will receive a follow up call several days after by a cafeteria team leader. If you experience any increase in weakness, difficulty walking or significant increase in pain thatlast more than 4 hours, please proceed to the Emergency Room and tell them you had a spine procedure done recently. Additionally, call us and notify us of these symptoms. Please call [phone] if you have any questions. Pt verbalized understanding. [facility]08-05-2024 Miscellaneous Notes* Telephone Encounter - Afsaneh Marshall MA - 06/07/2024 10:40 AM EDT Patient was seen in office today. Spoke to patient in reguards to pre procedure instructions. 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 Pt advised to arrive 30 min prior. [...] medications as needed. Advised on location of [address] Pt will receive a follow up call several days after by a cafeteria team leader. If you experience any increase in weakness, difficulty walking or significant increase in pain thatlast more than 4 hours, please proceed to the Emergency Room and tell them you had a spine procedure done recently. Additionally, call us and notify us of these symptoms. Please call [phone] if you have any questions. Pt verbalized understanding. documented in this encounterAshtabula [facility] Center08-05-2024 NoteHNO ID: [id number] Author: MIGDALIA UREÑA, DO Service: ? Author Type: Physician Type: [...] supervised home exercise program (HEP): No 4. Attendance Secretary: No 5. What are your limitations: Any [...] PAST SURGICAL HISTORY age 5: ADENOIDECTOMY PRIMARY Comment: Adenoidectomy 05/08: LAPS ABD PRTMANDOMENTUM DX W/WO SPEC BR/WA SPX Comment: Laparoscopy: mass in the omentum age 5: TONSILLECTOMY PRIMARY/SECONDARY Comment: Tonsillectomy Social History Tobacco Use Smoking [...] per month)Disp: 453.6 gRfl: 3 HUMALOG U-100 (more content not included)...[facility] History of Present illness Narrative* Migdalia Ureña DO - 06/07/2024 10:03 AM EDT [facility] Low Back Pain - [...] supervised home exercise program (HEP): No 4. Attendance Secretary: No 5. What are your limitations: Any type of movement Passive conservative therapy in the last six months (see below) 1. NSAIDS: Motrin 800 mg - last dose this morning, 2. Prescription pain medication: Flexeril - last dose 2 hours ago, Gabapentin 400 mg - last dose this am 3. Acupuncture: No 4. Tens unit: No Litigation: No Workers' Compensation: No YELLOW & BLUE FLAGS No-Neg Attitude; Back Pain is [...] <AGE 11 Comment: Adenoidectomy 05/08: LAPS ABD PRTM&OMENTUM DX W/WO SPEC BR/WA SPX Comment: Laparoscopy: [...] Unknown CURRENT MEDICATIONS: gabapentin (NEURONTIN) 400 mg capsule^Take 400 mg by mouth.^Disp: ^Rfl: famotidine (PEPCID) 20 mg tablet^Take 1 tablet by mouth two times a day.^Disp: 180 tablet^Rfl: 3 rifAMPin (RIFADIN) 300 mg capsule^Take 2 pills once monthly^Disp: 16 capsule^Rfl: 0 ofloxacin (FLOXIN) 400 mg tablet^Take 1 pill once monthly^Disp: 8 tablet^Rfl: 0 Minocycline HCl 100 mg tablet^Take 1 pill once monthly^Disp: 8 tablet^Rfl: 0 triamcinolone acetonide (KENALOG) 0.1 % cream^Apply 1 application to affected area two times a day.(No more than 21 days per month)^Disp: 453.6 g^Rfl: 3 HUMALOG U-100 INSULIN 100 unit/mL injection^INJECT 90 UNITS DAILY VIA INSULIN PUMP^Disp: 100 mL^Rfl: 3 fluticasone (FLONASE) 50 mcg/actuation nasal spray^Use in the nose.^Disp: ^Rfl: icosapent ethyl (VASCEPA) 1 gram^Take 1 g by mouth. 2 caps in the AM and 2 caps in the PM^Disp: ^Rfl: levothyroxine (SYNTHROID) 50 mcg tablet^TAKE 2 TABLETS DAILY^Disp: 180 tablet^Rfl: 4 rosuvastatin (CRESTOR) 20 mg tablet^TAKE ONE AND ONE-HALF TABLETS ONCE DAILY^Disp: 135 tablet^Rfl: 2 ibuprofen (MOTRIN) 800 mg tablet^Take 800 mg by mouth every 6 hours as needed.^Disp: ^Rfl: cyclobenzaprine (FLEXERIL) 10 mg tablet^Take 10 mg by mouth three times daily as needed.^Disp: ^Rfl: PROAIR HFA 90 mcg/actuation inhaler^Inhale 2 Puffs as instructed as needed.^Disp: ^Rfl: ADVAIR HFA 115-21 mcg/actuation inhaler^Inhale 4 Puffs as instructed once daily.^Disp: ^Rfl: MUCINEX 600 mg 12 hr tablet^Take 2 tablets by mouth once daily as needed.^Disp: ^Rfl: 0 Subcutaneous Insulin Pump (ACCU-CHEK SPIRIT INSULIN PUMP) misc^Basal rates: 24:00 --1.6units/hr; 030 0:-2.3units/hr;06:00-1.8;11:00-1.8;12:00-2.0;16:00-2.2;19:00-2.7;21:00-2.4 ;22:00-1.6. Bolus: 2 unit/6 Gms CHO each meal; correction : 1 unit every 25 mg > 125 mg/dl. Whn wrk. hrd: tmp bas at 80%^Disp: 1 Each^Rfl: 0 lisinopril (ZESTRIL) 2.5 mg tablet^Take 4 tablets by mouth once daily.^Disp: 90 tablet^Rfl: 3 (Patient taking differently: Take 2.5 mg by mouth once daily.) aspirin, enteric coated (ECOTRIN LOW STRENGTH) 81 mg ORAL EC tablet^Take 1 tablet by mouth once daily.^Disp: ^Rfl: 0 fluoxetine hcl(PROZAC 20 MG CAP)^3 tabs daily^Disp: 0^Rfl: 0 ONE TOUCH ULTRA TEST STRIPS^chekc 6-8 timea a day(insulin pump)^Disp: 700^Rfl: 3 ONE TOUCH FINE POINT LANCET^uses 6-8 a day^Disp: 700^Rfl: 3 CENTRUM ECHINACEA CAPSULE 100MG PO^^Disp: ^Rfl: 0 REVIEW OF SYSTEMS: PAIN ASSESSMENT: See [...] Wt 88.5 kg (195 lb) BMI 29.65 kg/m SIGNATURE: Migdalia Ureña DO PATIENT NAME: Jacquie Lantigua DATE: June 07, 2024 TIME: 10:03 AM I agree with the Chief Complaint, ROS, and Past Histories independently gathered by the clinical user support analyst supervisor and the remaining scribed note accurately describes [...] negative b/l Distraction test was negative b/l TABITHA SIGNS - 1) Tenderness: Appropriate 2) Simulation/Axial Loading/ROT: Appropriate 3) Distraction: Seated SLR: Appropriate 4) Regional Disturbances: Appropriate 5) Overreaction: Negative. NEURO/PHYSICAL SIGNS: No significant babinski, seated straight leg raising test b/l. Patricks test was negative b/l. RADIOGRAPHY: Reports / films reviewed with patient. Lumbar spine MRI :7/31/24 Report available in computer. The bone lesion of the thoracic and lumbar spine seen on prior examination demonstrate avid postcontrast enhancement and most concerning for malignancy. Enhancing lesions are also identified within the visualized left iliac bone. No enhancing lesion or pathologic enhancement of the visualized finalcord or cauda equina. Lumbar spine MRI: 05/11/24 [...] to Dr. Araya. I have stated to move about the positive metastatic disease. He is additional workup including [...] earliest convenience. ( Lt L4-5, 5-s1 ) Mayhave to modify level(s) / location/ approach based on any new relevant information/ imaging/ symptom presentation and response to treatments. Interventional pain procedure epidural injection recommended. Verbal consent was obtained. Risks, benefits, alternatives and personnal were explained. Procedure was described in detail to patients satisfaction. Patient verblizes understanding. Patient is recommended to cancel the procedure if patient has any concerns. Patient to follow up with me at the earliest convenience. ( Lt L4-5 and L5-s1 )May have to modify level(s) / location/ approach based on any new relevant information/ imaging/ symptom presentation and response to treatments. The majority of the visit was spent counseling and/or coordinating care for the patient on the dateof the service which included preparing to see the patient, [id number] patient care, completing clinical documentation, obtaining and/or [...] to consulting/requesting physician. Migdalia Ureña DO, MBA documented in this encounterAshtabula [facility]07-16-[facility] History of Present illness Narrative* Blanca Martinez MD - 05/18/2024 9:34 AM EDT CC: Patient presents with: LESION, SKIN HPI: [...] application to affected area two times a day.(No more than 21 days per month) 453.6 [...] INSULIN PUMP) misc Basal rates: 24:00 --1.6units/hr; 030 0:-2.3units/hr;06:00-1.8;11:00-1.8;12:00-2.0;16:00-2.2;19:00-2.7;21:00-2.4 ;22:00-1.6. Bolus: 2 unit/6 Gms CHO each meal; correction : 1 unit every 25 mg > 125 mg/dl. Eva hein. hrd: tmp bas at 80% 1 Each 0 lisinopril (ZESTRIL) 2.5 mg tablet Take 4 tablets by mouth once daily. (Patient taking differently:Take 2.5 mg by mouth once daily. ) [...] goal Diagnosis, etiology and treatment options discussed [place] decision to proceed with 3 additional months [...] Past Histories independently gathered by the clinical user support analyst supervisor and the remaining scribed note accurately describes my personal service to the patient. Blanca Martinez MD documented in this encounterAshtabula [facility]06-04-2024 Telephone encounter Note * Telephone Encounter - Dora Arevalo MA - 04/06/2024 9:46 AM EDT Requester: [employer] Patients last Endocrinology visit occurred 12/31/23. Follow-up evaluation has been established Upcoming Endocrinology Appointments - Next 365 Days Visit Type Date Time Department [facility] PATIENT 07/08/2024 3:30 PM [facility] PATIENT 12/15/2024 3:40 PM [facility] . Requested Prescriptions Pending Prescriptions Disp Refills famotidine (PEPCID) 20 mg tablet 180 tablet 3 Sig: Take 1 tablet by mouth two times a day. If patient is due for an appointment please route to provider for refill consideration and also to the endo scheduling pool. PSS NOTE: Patient needs scheduled appointment No [facility]06-04-[facility]24 Miscellaneous Notes* Telephone Encounter - Dora Arevalo MA - 04/06/2024 9:46 AM EDT Requester: [facility] [employer] Patients last Endocrinology visit occurred 12/31/23. Follow-up evaluation has been established Upcoming Endocrinology Appointments - Next 365 Days Visit Type Date Time Department [facility] PATIENT 07/08/2024 3:30 PM [facility] PATIENT 12/15/2024 3:40 PM [facility] . Requested Prescriptions Pending Prescriptions Disp Refills famotidine (PEPCID) 20 mg tablet 180 tablet 3 Sig: Take 1 tablet by mouth two times a day. If patient is due for an appointment please route to provider for refill consideration and also to the endo scheduling pool. PSS NOTE: Patient needs scheduled appointment No documented in this encounterAshtabula [facility]05-22-2024 Telephone encounter Note * Telephone Encounter - Ashley Moseley - 03/24/2024 4:12 PM EDT Jacquie is calling Parul Rico APRN.CNP today to let provider know notes from [facility] PT should be faxed to office Patient has been identified by name and birthdate. Duration of symptoms: N/A Person calling: self Call patient at: on cell [phone] (home) [phone] (cell) Was an appointment scheduled: No Closing statement: Results or non-symptom based questions: Thank you for calling [facility], your call will be returned within the next business day. Ashley Moseley [facility]05-22-2024 Miscellaneous Notes* Telephone Encounter - Ashley Moseley - 03/24/2024 4:12 PM EDT Jacquie is calling Parul Rico APRN.CNP today to let provider know notes from [facility] PT should be faxed to office Patient has been identified by name and birthdate. Duration of symptoms: N/A Person calling: self Call patient at: on cell [phone] (home) [phone] (cell) Was an appointment scheduled: No Closing statement: Results or non-symptom based questions: Thank you for calling [facility], your call will be returned within the next business day. Ashley Moseley documented in this encounterAshtabula County [facility] Center05-22-2024 History of Present illness Narrative* Parul Rico APRN.CNP - 03/24/2024 3:30 PM EDT Images from the original note were not included. Spine Care Path Low Back Pain - Subacute (6 - 12 weeks) Follow Up Exam SUBJECTIVE HISTORY OF PRESENT ILLNESS: Jacquie Lantigua is a 58 year old male who presents with a chief complaint of low back and leg pain and is self-referred. Patient presents with low back and leg pain with numbness and tingling x 2 months. Denies accident/injury He was recently evaluated by his primary care provider, at visit he was started on gabapentin. Currently employed in [employer] for [employer] Former smoker - quit a couple years ago 1 month follow-up: Last seen in office on 02/19/2024: Patient is feeling the same. Distribution of symptoms are unchanged. He reports that he has attended 10 visits of PT over 4 weeks [facility] since last visit. He reports that last visit was 03/19/2024. No PT records available at time of appointment Doing HEP BID for 10-15 minutes each Pain localized to bilateral low back - left greater than right - at waist line Pain described as dull, numbness, radiating Radiation: Left lower extremity: posterior and lateral to ankle Numbness/Tingling: Entire left lower extremity, into great toe He denies loss of bowel or bladder control, denies dexterity difficulties, denies imbalance. Pain rated 8-9/10 Pain worse with sitting or standing for longer than 30 minutes , laying flat, Pain improved with activity , heat, ibuprofen Interventions: medications , heat , inversion table, back brace, PT x 10 visits with HEP. Medications: gabapentin 300 mg TID , medrol dose pack, flexeril, ibuprofen - 01/08/2024 , aspirin, Humalog, synthroid Physical Therapy: [place] [facility]. Last visit 03/19/2024. Doing HEP BID for 10-15 minutes. No PT records available at time of appointment. Treating Physicians: Dr. Araya - PCP -[facility] Dr. Villagomez - Endocrinology History of Spine Injections/Surgery: None for spine Other Issues Addressed at the Visit Today: None. Precipitating Event: None PAIN EVALUATION 03/24/2024 1535 Pain Level: 9 Pain Location: Back-Lower radiates to L leg Description: Sharp;Dull;Numbness Frequency: Continuous Litigation: No Workers' Compensation: No YELLOW & BLUE FLAGS YES-Neg Attitude; Back Pain is Disabling No-Avoiding Activity (for Fear of Pain) No-Depression or Anxiety Disorders No-Social Problems No-Substance Use Disorder No-Job Dissatisfaction No-Financial Disincentives Patient Entered Questionnaires PROMIS Score Percentiles Percentiles [...] <AGE 11 age 5 Adenoidectomy LAPS ABD PRTM&OMENTUM DX W/WO SPEC BR/WA SPX 05/08 Laparoscopy: mass in the omentum TONSILLECTOMY PRIMARY/SECONDARY <AGE 11 age 5 Tonsillectomy Social History Tobacco Use Smoking status: [...] Methotrexate Unknown Red Dye Unknown CURRENT MEDICATIONS: rifAMPin (RIFADIN) 300 mg capsule Take 2 pills once monthly ofloxacin (FLOXIN) 400 mg tablet Take 1 pill once monthly Minocycline HCl 100 mg tablet Take 1 pill once monthly triamcinolone acetonide (KENALOG) 0.1 % cream Apply 1 application to affected area two times a day.(No more than 21 days per month) HUMALOG U-100 INSULIN 100 unit/mL injection INJECT 90 UNITS DAILY VIA INSULIN PUMP famotidine (PEPCID) 20 mg tablet Take 1 tablet by mouth twice daily. fluticasone (FLONASE) 50 mcg/actuation nasal spray Use [...] INSULIN PUMP) misc Basal rates: 24:00 --1.6units/hr; 030 0:-2.3units/hr;06:00-1.8;11:00-1.8;12:00-2.0;16:00-2.2;19:00-2.7;21:00-2.4 ;22:00-1.6. Bolus: 2 unit/6 Gms CHO each meal; correction : 1 unit every 25 mg > 125 mg/dl. Whn wrk. hrd: tmp bas at 80% lisinopril (ZESTRIL) 2.5 mg tablet Take 4 tablets by mouth once daily. (Patient taking differently:Take 2.5 mg by mouth once daily. ) aspirin, enteric coated (ECOTRIN LOW STRENGTH) 81 mg ORAL EC tablet Take 1 tablet by mouth once daily. fluoxetine hcl(PROZAC 20 MG CAP) 3 tabs daily ONE TOUCH ULTRA TEST STRIPS chekc 6-8 timea a day(insulin pump) (Patient not taking: No sig reported) ONE TOUCH FINE POINT LANCET uses 6-8 a day (Patient not taking: uses 6-8 a day) CENTRUM ECHINACEA CAPSULE 100MG PO REVIEW OF SYSTEMS: PAIN ASSESSMENT: See HPI. GENERAL: Denies fever, chills malaise and weight loss. HEENT: No recent change in vision or hearing. CARDIOVASCULAR: Hypertension RESPIRATORY: Denies SOB, sputum production, and hemoptysis. GI: Denies GI ulcers, inflammatory disease, or liver disease. : Denies change in frequency or urgency, kidney disease, and burning with urination. MUSCULOSKELETAL: Positive for See HPI SKIN: Psoriasis PSYCHOLOGICAL: Denies uncontrolled depression or anxiety. NEURO: Numbness ENDOCRINE: Positive for DM on Insulin HEMATOLOGY/LYMPHOLOGY: Denies cancer, bleeding or clotting disorders, anemia,and DVT's. ALLERGIC/IMMUNOLOGICAL: Denies risks for infection, or recent MRSA infections. OBJECTIVE: PHYSICAL EXAM Wt 88.9 kg (196 lb) BMI 29.80 kg/m GENERAL APPEARANCE: Well appearing, well-hydrated, well nourished and alert SKIN: Head, neck, trunk, and extremities dry, intact and without lesions LUNGS: even and non-labored breathing, normal chest excursion NEURO/PSYCH: oriented to time, place, and person, speech normal, mental status intact GAIT: normal, toe walking normal, heel walking normal, able to tandem gait POSTURE: Posture and spinal curves are abnormal; increased thoracic kyphosis PALPATION: no palpable masses, tenderness, or spasm, no palpable subluxation or step-off, no point tenderness over the spine MUSCULOSKELETAL: Extended Low Back & Leg Exam Lumbar Range of Motion Flexion 2-4 inches from floor Extension Restricted RIGHT LEFT Lateral Bending Full Full Oblique Extension Within Normal Limits Within Normal Limits Leg Raise Straight Leg Raise Caused low back Caused low back Contralateral Straight Leg Raise Negative Negative DTRs Knee Hypo-reflexive Hypo-reflexive Ankle Hypo-reflexive Hypo-reflexive Babinski normal normal Strength of Lower Extremities Extensor Hallux Longus 5/5 5/5 Ankle Dorsiflexion 5/5 5/5 Ankle Plantarflexion 5/5 5/5 Knee Extension 5/5 5/5 Tabitha's Exam: Deferred Hip Range of Motion RIGHT LEFT Flexion Markedly Restricted Markedly Restricted Extension Markedly Restricted Markedly Restricted Abduction Markedly Restricted Markedly Restricted Adduction Markedly Restricted Markedly Restricted Internal Rotation Markedly Restricted Markedly Restricted External Rotation Markedly Restricted Markedly Restricted Hip Exam RIGHT LEFT MECCA Exam Normal Normal Trochanteric Bursa Tenderness Normal Normal Gaenslen's Maneuver Normal Normal Yeyo's Test (IT-Band Pathology) Normal Normal @ZZCSPINENECKEXAM@ Cervical Range of Motion Flexion Normal Extension Normal Upper Body Reflex Exam RIGHT LEFT Reflex Status Reflex Status Biceps 1+ Hypo-active 1+ Hypo-active Brachioradialis 1+ Hypo-active 1+ Hypo-active Chavez's Sign absent absent Upper Extremity Strength RIGHT LEFT Strength (MMT) Strength (MMT) Shoulder Abduction 5/5 5/5 Biceps 5/5 5/5 Triceps 5/5 5/5 Resisted Suppination 5/5 5/5 Wrist Extension 5/5 5/5 Interossei 5/5 5/5 NEUROSENSORY: Soft touch; Within Normal Limits Logroll: Negative Thigh thrust: Negative Bancroft's test: Negative Prone extension: Negative Neuro Tests: None Data Review: [facility] records independently reviewed Outside records independently reviewed, no imaging available Hemoglobin A1C (%) Date Value 11/16/2022 7.2 04/15/2019 7.3 03/05/2011 9.4 12/28/2003 9.8 10/01/2001 9.3 06/02/2001 10.9 Hemoglobin A1C (POCT) (%) Date Value 12/31/2023 7.2 06/17/2023 7.0 12/05/2021 7.1 12/01/2020 6.9 11/27/2018 7.6 ASSESSMENT/PLAN Chronic bilateral low back pain with left-sided sciatica (primary encounter diagnosis) Radiculopathy of lumbar region Jacquie Lantigua is a 58 year old male with subacute bilateral low back and left leg pain with numbness and tingling. HX DM type I, HTN He reports that he has attended 10 visits of PT over 4 weeks at [facility] since last visit. He reports that last visit was 03/19/2024. No PT records available at time of appointment Doing HEP BID for 10-15 minutes each. He was advised to obtain copy of physical therapy reports. He reports that he has not received significant improvement with conservative treatments. Orders for x-ray and MRI lumbar spine placed at time of today's appointment for further evaluation and treatment considerations. Patient request to complete imaging at [facility], orders were signed and given to patient. Patient was educated that he will need to bring a CD ofimaging and the reports with him to his follow-up appointment. He verbalized understanding. Medications indicated for use reviewed, he was recently started on gabapentin to primary care, primary care will continue to manage medication. Plan of care, red flag signs, when to seek emergent treatment reviewed. 1. Imaging:XR and MRI lumbar - signed and given at discharge [place] [facility] 2. Physical Therapy: Obtain records 3. Medication:No changes 4. Referrals: None 5. Considerations: 6. Follow up: 3 months Imaging Ordered: None SIGNATURE: Parul Rico APRN.CNP PATIENT NAME: Jacquie Lantigua DATE: March 24, 2024 TIME: 3:32 PM documented in this encounterAshtabula [facility]05-16-2024 Telephone encounter Note * Telephone Encounter - Nicki Major RN - 03/18/2024 11:37 AM EDT Neuro SPINE CARE COORDINATION QUICK NOTE Hi, Please schedule the following appointment. Patient: Jacquie Lantigua Provider: Parul Rico Date: 03/24/2024 Time: 3:30pm Visit Type: In Person Established Visit Imaging needed prior to schedule: No Patient is aware: Yes Thank you, Nicki Major Sent staff message [facility]05-16-2024 Miscellaneous Notes* Telephone Encounter - Nicki Major RN - 03/18/2024 11:37 AM EDT Neuro SPINE CARE COORDINATION QUICK NOTE Hi, Please schedule the following appointment. Patient: Jacquie Lantigua Provider: Parul Rico Date: 03/24/2024 Time: 3:30pm Visit Type: In Person Established Visit Imaging needed prior to schedule: No Patient is aware: Yes Thank you, Nicki Major Sent staff message * Telephone Encounter - Nicki Major RN - 03/18/2024 11:35 AM EDT Neuro SPINE CARE COORDINATION QUICK NOTE Spoke with patient to advise him that Parul would like him to schedule a follow up visit to addressthe request for an MRI. Patient is agreeable to March 24 at 3:30pm. Sent message to scheduling teamto add on. * Telephone Encounter - Bettina Manuel - 03/18/2024 9:10 AM EDT Jacquie is calling Parul Rico APRN.ROD WELDER today to ask about next steps. Pt states he has completed 10 rounds of PT and has not helped at all. He is still having leg pain going into his toes. Hoping to possibly get MRI. Please call to advise plan of care Patient has been identified by name and birthdate. Duration of symptoms: N/A Person calling: self Call patient at: at home [phone] (home) [phone] (cell) Was an appointment scheduled: No Closing statement: Results or non-symptom based questions: Thank you for calling [facility], your call will be returned within the next business day. Bettina Manuel documented in this encounterAshtabula [facility] Center05-16-2024 Telephone encounter Note * Telephone Encounter - Nicki Major RN - 03/18/2024 11:35 AM EDT Neuro SPINE CARE COORDINATION QUICK NOTE Spoke with patient to advise him that Parul would like him to schedule a follow up visit to addressthe request for an MRI. Patient is agreeable to March 24 at 3:30pm. Sent message to scheduling teamto add on. [facility]05-16-[facility] Telephone encounter Note* Telephone Encounter - Bettina Manuel - 03/18/2024 9:10 AM EDT Jacquie is calling Parul Rico APRN.ROD WELDER today to ask about next steps. Pt states he has completed 10 rounds of PT and has not helped at all. He is still having leg pain going into his toes. Hoping to possibly get MRI. Please call to advise plan of care Patient has been identified by name and birthdate. Duration of symptoms: N/A Person calling: self Call patient at: at home [phone] (home) [phone] (cell) Was an appointment scheduled: No Closing statement: Results or non-symptom based questions: Thank you for calling [facility], your call will be returned within the next business day. Bettina Manuel [facility]05-15-2024 Instructions* Patient Instructions* Aimee Lehman MA - 03/17/2024 8:54 AM EDT Start ONCE monthly Rifampin 600 mg Oflaxacin 400 mg Minocycline 100 mg Continue for at least 3 months Some patients require 6-8 months of treatment for this to be effective We will continue this for at least 3 months documented in this encounterAshtabula County Medical Center05-15-2024 History of Present illness Narrative* Carmen Apodaca MD - 03/17/2024 8:23 AM EDT CC: Patient presents with: Follow Up Rash Last derm visit 02/16/24 with Yoselyn Mills. HPI: 58 year old male patient here for: Rash follow up Biopsied at last visit; consistent with GA D/T large BSA recommended to follow up with MD Was prescribed TAC cream, used BID x 3 weeks per month without much change Has had this for years Believes he may have had ILK in the past (years ago) Known diabetes and thyroid disease HPI copied from previous note: Location: arms and legs Appearance (size, shape, color): red circular rash Duration: many years Symptoms (growing, itching, bleeding, tender): spreading to different areas, a little itchy at times but not much Treatments: Humira in past at [facility] Was treatment effective: no, had upper body pain when he would inject the Humira and had to stop the medication Was on MTX in the past as well, also had to stop that but is unsure what happened Chart notes MTX as an allergy Joint pain in the back, has appointment with Spine Never biopsied Never given steroids that he recalls but may have years ago? No family history of psoriasis Derm History: Denies personal history of skin cancer Allergies: ALLERGIES Allergen Reactions Humira [Adalimumab] GI Upset Methotrexate Unknown Red Dye [Other] Medications: Current Outpatient Medications Medication Sig Dispense Refill triamcinolone acetonide (KENALOG) 0.1 % cream Apply 1 application to affected area two times a day.(No more than 21 days per month) 453.6 g 3 HUMALOG U-100 INSULIN 100 unit/mL injection INJECT 90 UNITS DAILY VIA INSULIN PUMP 100 mL 3 famotidine (PEPCID) 20 mg tablet Take 1 tablet by mouth twice daily. 180 tablet 3 fluticasone (FLONASE) 50 mcg/actuation nasal spray [...] INSULIN PUMP) misc Basal rates: 24:00 --1.6units/hr; 030 0:-2.3units/hr;06:00-1.8;11:00-1.8;12:00-2.0;16:00-2.2;19:00-2.7;21:00-2.4 ;22:00-1.6. Bolus: 2 unit/6 Gms CHO each meal; correction : 1 unit every 25 mg > 125 mg/dl. Eva hein. hrd: tmp bas at 80% 1 Each 0 lisinopril (ZESTRIL) 2.5 mg tablet Take 4 tablets by mouth once daily. (Patient taking differently:Take 2.5 mg by mouth once daily. 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 Often we never find the cause. Recalcitrant: - Start ONCE monthly rifampin 600 mg, oflaxacin 400 mg and minocycline 100 mg. Continue for at least 3 months. Some patients require 8 months of treatment for this to be effective. We will continue this for at least 3 months. ?- Side effects are unlikely at once monthly dosing but potentially include allergic rash, photosensitivity, changes to the gut fernando/ bacterial content or changes in liver enzymes. Call usif you develop any of these symptoms or a different spreading rash ?- William DV, Gilma BH, Ling IH. Granuloma annular treated with rifampicin, ofloxacin, and minocycline combination therapy. Arch Dermatol 2009;145:787-9. ?- Hernesto Taylor. Generalized granuloma annulare treated with monthly Rifampicin, Ofloxacin, and Minocycline combination therapy.[place] J Dermatol 2013;58:197-9. ?- Hernesto Taylor. Monthly rifampicin, ofloxacin, and minocycline therapy for generalized and localized granuloma annulare. [place] J Dermatol Venereol Leprol 2015;81:35-9. Treatment: -discussed side effects including pain, bleeding, thinning and discoloration of skin -verbal consent obtained -injected bilateral forearms with 2.0mL total of 10 mg/mL of triamcinolone into 4lesions, toleratedwell - Okay to continue Triamcinolone 0.1% cream - Recommend f/u in in 8 weeks for repeat ILK (patricia), 16 weeks repeat ILK (patricia) and 6 months from now for evaluation (wi) RTC 2 months repeat ILK The patient is seen and examined by Dr. Apodaca and the following reflects his/her service. Scribed by Aimee Lehman MA I agree with the Chief Complaint, ROS, and Past Histories independently gathered by the clinical user support analyst supervisor and the remaining scribed note accurately describes my personal service to and examination of the patient. Carmen Apodaca MD documented in this encounterAsht[facility]04-18-2024 Miscellaneous Notes* Telephone Encounter - Patricia Mills APRN.ROD WELDER - 02/19/2024 11:42 AM EDT FINAL DIAGNOSIS A. Skin, right upper arm, punch biopsy: - Granuloma anulare - benign inflammatory disorder - cause is unknown - can consider biopsy to confirm diagnosis - often resolves spontaneously, especially in localized disease (about 2 yrs) Treatment: - 1st line therapy is topical steroids - will start triamcinolone cream BID - Discussed possible and expected risks and benefits of medication. - Advised to contact the office if any questions regarding medication - If experiencing side effects, it is ok to stop the medication and contact the office for further direction If not improving, given wide spread, would recommend discussing oral medications with MD in Dermatology. Patricia Mills APRN.CNP February 19, 2024 11:47 AM documented in this encounterAshtabula [facility] Center04-18-2024 Instructions* Patient Instructions* Parul Rico APRN.CNP - 02/19/2024 8:15 AM EDT Images from the original note were not included. Subacute Low Back Pain Overview: Eighty to 90 percent of people in the [place] will experience an episode of back pain at sometime during their lives. Subacute back pain refers to an episode of pain that comes on suddenly and lasts from 6 to 12 weeks. The use of imaging (X-ray and MRI) is not recommended in most cases of subacute low back pain. The exact cause of low back pain is often not identified but most people recover with simple treatment. Treatment: Back pain is almost always successfully treated with conservative (non-surgical) measures. Prolonged bed rest is not recommended and generally should not exceed 24-48 hours. Gradually resuming normal activities as soon as you are able is best. Your physician may recommend physical therapy to customize an active exercise program which will speed your recovery. Over the counter, non-prescription pain relievers such as acetaminophen (Tylenol) and ibuprofen maybe used in your treatment of pain. Your physician may prescribe a non-steroidal anti-inflammatory drug (NSAID) to use as an alternative. Opioid or narcotic medications are not recommended, and you should refrain from the use of such medications. In fact, use of these drugs may prolong the amount of time it takes for you to recover. Follow Up See your health care provider if: You experience fever The pain does not improve within 6 weeks or worsens The pain progressively moves from your back into your leg(s) You notice progressive weakness in your legs You experience problems in your balance or walking You notice difficulty controlling your bowels or bladder These are warning signs or red flags that require prompt, urgent medical attention. For more information on low back pain, visit our website at [email or web address] and search lower back pain. SIGNATURE: Parul Rico APRN.CNP PATIENT NAME: Jacquie Lantigua DATE: February 19, 2024 TIME: 8:15 AM Subacute Lumbar Radiculopathy (Leg Pain) Overview: Symptoms of a pinched nerve in the leg (lumbar radiculopathy) include numbness, tingling and evenweakness. Leg pain is usually worse than back pain. The cause of nerve impingement may include a protruding (herniated) disc, bony or joint overgrowth or both. Lumbar spinal stenosis is a condition which results from narrowing of the spinal canal which contains the lower spinal nerves. This condition typically produces leg symptoms when standing or walking which are relieved by sitting. The prognosis for a full recovery with conservative (non-surgical) treatment is good in most persons. X-rays or scans (MRI or CT) are not required in most patients before starting treatment but may be performed if symptoms aren't improving after about 6 weeks despite medical treatment. Treatment: Pain-relieving anti-inflammatory medications such as ibuprofen or naproxen are recommended. Acetaminophen (Tylenol) is recommended if you cannot take anti- inflammatory medications. Medications effective for nerve pain such as gabapentin (Neurontin), pregabalin (Lyrica) or some antidepressants may be helpful for leg pain. A short course of oral steroids (prednisone or Medrol) may help alleviate severe, acute inflammation. For persistent pain despite oral medications and physical therapy, an epidural corticosteroid injection ( block ) may be recommended if an MRI or CT scan confirms nerve impingement ( pinched nerve ). Simple home exercises are recommended to speed recovery, relieve back and neck pain and restore normal back mobility. A physical therapist may be helpful in customizing these exercises. Remaining as active as possible and resuming normal activities as tolerated is recommended. If weakness is developing in the affected leg or if pain is severe despite medical treatment, a surgical consultation may be recommended if an MRI or CT scan confirms nerve impingement. Follow Up See your health care provider if: The pain doesn't improve or worsens within 4-6 weeks You notice increasing weakness in the leg(s) You experience problems with balance or walking You notice difficulty passing urine or controlling your bowels These are warning signs or red flags that require prompt, urgent medical attention. SIGNATURE: Parul Rico APRN.CNP PATIENT NAME: Jacquie Lantigua DATE: February 19, 2024 TIME: 8:15 AM documented in this encounterAshtabula [facility] Center04-18-2024 History of Present illness Narrative* Parul Rico APRN.CNP - 02/19/2024 8:00 AM EDT Images from the original note were not included. [facility] Low Back Pain - Subacute (6 - 12 weeks) Initial Exam SUBJECTIVE HISTORY OF PRESENT ILLNESS: Jacquie Lantigua is a 58 year old male who presents with a chief complaint of low back and leg pain and is self-referred. Patient presents with low back and leg pain with numbness and tingling x 2 months. Denies accident/injury He was recently evaluated by his primary care provider, at visit he was started on gabapentin. Currently employed in [employer] for [employer] Former smoker - quit a couple years ago Pain localized to bilateral low back - left greater than right - at waist line Pain described as dull, numbness, radiating Radiation: Left lower extremity: posterior and lateral to ankle Numbness/Tingling: Entire left lower extremity, into great toe He denies loss of bowel or bladder control, denies dexterity difficulties, denies imbalance. Pain rated 8/10 Pain worse with sitting or standing for longer than 30 minutes , laying flat, Pain improved with activity , heat, ibuprofen Interventions: medications , heat , inversion table, back brace, Medications: gabapentin 300 mg TID , medrol dose pack, flexeril, ibuprofen - 01/08/2024 , aspirin, Humalog, synthroid Physical Therapy: None Treating Physicians: Dr. Araya - PCP -[facility] Dr. Villagomez - Endocrinology History of Spine Injections/Surgery: None for spine Other Issues Addressed at the Visit Today: None. Precipitating Event: None PAIN EVALUATION 02/19/2024 0750 Pain Level: 8 Pain Location: Back-Lower radiates to L leg Description: Dull numbness and tingling on L leg Duration Amount of Time: 2 Duration Units: Months Frequency: Continuous Litigation: No Workers' Compensation: No YELLOW & BLUE FLAGS YES-Neg Attitude; Back Pain is Disabling No-Avoiding Activity (for Fear of Pain) No-Depression or Anxiety Disorders No-Social Problems No-Substance Use Disorder No-Job Dissatisfaction No-Financial Disincentives Patient Entered Questionnaires PROMIS Score Percentiles Percentiles [...] <AGE 11 age 5 Adenoidectomy LAPS ABD PRTM&OMENTUM DX W/WO SPEC BR/WA SPX 05/08 Laparoscopy: mass in the omentum TONSILLECTOMY PRIMARY/SECONDARY <AGE 11 age 5 Tonsillectomy Social History Tobacco Use Smoking status: Never Smokeless tobacco: Never Substance Use Topics Alcohol use: Yes Drug use: No FAMILY HISTORY Problem Relation Age of Onset None Mother MVP Lipids Father dementia. Multiple strokes. Ischemic Heart Disease Other cousing CAD age 44. None Son None Daughter Diabetes Paternal Uncle ALLERGIES Allergen Reactions Humira [Adalimumab] GI Upset Methotrexate Unknown Red Dye [Other] CURRENT MEDICATIONS: HUMALOG U-100 INSULIN 100 unit/mL injection INJECT 90 UNITS DAILY VIA INSULIN PUMP famotidine (PEPCID) 20 mg tablet Take 1 tablet by mouth twice daily. fluticasone (FLONASE) 50 mcg/actuation nasal spray Use in the nose. icosapent ethyl (VASCEPA) 1 gram Take 1 g by mouth. 2 caps in the AM and 2 caps in the PM levothyroxine (SYNTHROID) 50 mcg tablet TAKE 2 TABLETS DAILY rosuvastatin (CRESTOR) 20 mg tablet TAKE ONE AND ONE-HALF TABLETS ONCE DAILY blood sugar diagnostic (CONTOUR NEXT TEST STRIPS) test strip Test 4 times daily ibuprofen (MOTRIN) 800 mg tablet Take 800 mg by mouth every 6 hours as needed. cyclobenzaprine (FLEXERIL) 10 mg tablet Take 10 mg by mouth three times daily as needed. doxycycline hyclate (VIBRAMYCIN) 100 mg capsule Take 100 mg by mouth twice daily. (Patient not taking: Reported on 06/06/2022 ) PROAIR HFA 90 mcg/actuation inhaler Inhale 2 Puffs as instructed as needed. ADVAIR HFA 115-21 mcg/actuation inhaler Inhale 4 Puffs as instructed once daily. DIABETIC TUSSIN EX 100 mg/5 mL syrup Take 10 mL by mouth every 4 hours as needed. MUCINEX 600 mg 12 hr tablet Take 2 tablets by mouth once daily as needed. SPIRIVA RESPIMAT 1.25 mcg/actuation mist Inhale 2 Puffs as instructed once daily. (Patient not taking: Reported on 06/06/2022 ) CIALIS 20 mg tab(s) TAKE DIRECTED Subcutaneous Insulin Pump (ACCU-CHEK SPIRIT INSULIN PUMP) misc Basal rates: 24:00 --1.6units/hr; 030 0:-2.3units/hr;06:00-1.8;11:00-1.8;12:00-2.0;16:00-2.2;19:00-2.7;21:00-2.4 ;22:00-1.6. Bolus: 2 unit/6 Gms CHO each meal; correction : 1 unit every 25 mg > 125 mg/dl. Eva fuentesk. hrd: tmp bas at 80% lisinopril (ZESTRIL) 2.5 mg tablet Take 4 tablets by mouth once daily. (Patient taking differently:Take 2.5 mg by mouth once daily. ) aspirin, enteric coated (ECOTRIN LOW STRENGTH) 81 mg ORAL EC tablet Take 1 tablet by mouth once daily. fluoxetine hcl(PROZAC 20 MG CAP) 3 tabs daily ONE TOUCH ULTRASOFT LANCETS uses 6-8 a day. Insulin pump. (Patient not taking: No sig reported) ONE TOUCH ULTRA TEST STRIPS chekc 6-8 timea a day(insulin pump) (Patient not taking: No sig reported) ONE TOUCH FINE POINT LANCET uses 6-8 a day (Patient not taking: uses 6-8 a day) CENTRUM ECHINACEA CAPSULE 100MG PO REVIEW OF SYSTEMS: PAIN ASSESSMENT: See HPI. GENERAL: Denies fever, chills malaise and weight loss. HEENT: No recent change in vision or hearing. CARDIOVASCULAR: Hypertension RESPIRATORY: Denies SOB, sputum production, and hemoptysis. GI: Denies GI ulcers, inflammatory disease, or liver disease. : Denies change in frequency or urgency, kidney disease, and burning with urination. MUSCULOSKELETAL: Positive for See HPI SKIN: Psoriasis PSYCHOLOGICAL: Denies uncontrolled depression or anxiety. NEURO: Numbness ENDOCRINE: Positive for DM on Insulin HEMATOLOGY/LYMPHOLOGY: Denies cancer, bleeding or clotting disorders, anemia,and DVT's. ALLERGIC/IMMUNOLOGICAL: Denies risks for infection, or recent MRSA infections. OBJECTIVE: PHYSICAL EXAM Ht 172.7 cm (5' 8 ) Wt 89 kg (196 lb 3.4 oz) BMI 29.83 kg/m GENERAL APPEARANCE: Well appearing, well-hydrated, well nourished and alert SKIN: Head, neck, trunk, and extremities dry, intact and without lesions LUNGS: even and non-labored breathing, normal chest excursion NEURO/PSYCH: oriented to time, place, and person, speech normal, mental status intact GAIT: normal, toe walking normal, heel walking normal, able to tandem gait POSTURE: Posture and spinal curves are abnormal; increased thoracic kyphosis PALPATION: no palpable masses, tenderness, or spasm, no palpable subluxation or step-off, no point tenderness over the spine MUSCULOSKELETAL: Extended Low Back & Leg Exam Lumbar Range of Motion Flexion 2-4 inches from floor Extension Restricted RIGHT LEFT Lateral Bending Full Full Oblique Extension Within Normal Limits Within Normal Limits Leg Raise Straight Leg Raise Caused low back Caused low back Contralateral Straight Leg Raise Negative Negative DTRs Knee Hypo-reflexive Hypo-reflexive Ankle Hypo-reflexive Hypo-reflexive Babinski normal normal Strength of Lower Extremities Extensor Hallux Longus /5 5/5 Ankle Dorsiflexion / 5/5 Ankle Plantarflexion / 5/5 Knee Extension 03/07 5/5 Tabitha's Exam: Deferred Hip Range of Motion RIGHT LEFT Flexion Markedly Restricted Markedly Restricted Extension Markedly Restricted Markedly Restricted Abduction Markedly Restricted Markedly Restricted Adduction Markedly Restricted Markedly Restricted Internal Rotation Markedly Restricted Markedly Restricted External Rotation Markedly Restricted Markedly Restricted Hip Exam RIGHT LEFT MECCA Exam Normal Normal Trochanteric Bursa Tenderness Normal Normal Gaenslen's Maneuver Normal Normal Yeyo's Test (IT-Band Pathology) Normal Normal @ZZCSPINENECKEXAM@ Cervical Range of Motion Flexion Normal Extension Normal Upper Body Reflex Exam RIGHT LEFT Reflex Status Reflex Status Biceps 1+ Hypo-active 1+ Hypo-active Brachioradialis 1+ Hypo-active 1+ Hypo-active Chavez's Sign absent absent Upper Extremity Strength RIGHT LEFT Strength (MMT) Strength (MMT) Shoulder Abduction 5/5 5/5 Biceps 5/5 5/5 Triceps 5/5 5/5 Resisted Suppination 5/5 5/5 Wrist Extension 5/5 5/5 Interossei 5/5 5/5 NEUROSENSORY: Soft touch; Within Normal Limits Logroll: Negative Thigh thrust: Negative Bancroft's test: Negative Prone extension: Negative Neuro Tests: None Data Review: [facility] records independently reviewed Outside records independently reviewed, no imaging available Hemoglobin A1C (%) Date Value 11/16/2022 7.2 04/15/2019 7.3 03/05/2011 9.4 12/28/2003 9.8 10/01/2001 9.3 06/02/2001 10.9 Hemoglobin A1C (POCT) (%) Date Value 12/31/2023 7.2 06/17/2023 7.0 12/05/2021 7.1 12/01/2020 6.9 11/27/2018 7.6 ASSESSMENT/PLAN Bilateral low back pain with left-sided sciatica, unspecified chronicity (primary encounter diagnosis) Jacquie Lantigua is a 58 year old male with subacute bilateral low back and left leg pain with numbness and tingling. HX DM type I, HTN Physical examination is without neurological or strength deficits. He has not attended physical therapy in regards to current symptoms. He was educated on benefits ofphysical therapy and consultation order was placed. Order was signed and given to patient as he will be attending at [facility]. Medications indicated for use reviewed, he was recently started on gabapentin to primary care, primary care will continue to manage medication. He was advised that he can add [id number] lidocaine patches, Tylenol and continue ibuprofen while taking medication. Plan of care, red flag signs, when to seek emergent treatment reviewed. 1. Imaging:None 2. Physical Therapy: Consult to - order signed and given at discharge - [place] [facility] [place] 3. Medication:OTC lidocaine patches, OTC tylenol 4. Referrals: PT 5. Considerations: XR and MRI lumbar 6. Follow up: 3 months Imaging Ordered: None SIGNATURE: Parul Rico APRN.CNP PATIENT NAME: Jacquie Lantigua DATE: February 19, 2024 TIME: 7:48 AM documented in this encounterAshtabula [facility]04-15-2024 Instructions* Patient Instructions* Alisha Bundy MA - 02/16/2024 3:30 PM EDT CARE OF BIOPSY SITE 1. Wash your hands with soap and water. 2. Cleanse the biopsy site with antibacterial soap. 3. Thoroughly dry the area and apply a small amount of Vaseline or Aquaphor to keep area greasy at all times (this prevents a scab from forming). 4. PLEASE DO NOT use polysporin, Bacitracin, triple antibiotic or similar ointments. 5. Place a small dressing or band-aid over the wound until the wound is healed. (Studies show that wounds heal better when covered with ointment and a dressing). documented in this encounterAshtabula [facility] Center04-15-2024 History of Present illness Narrative* Patricia Mlils APRN.CNP - 02/16/2024 3:13 PM EDT Consultation requested by Bernardino Shipley DO for an opinion regarding plaque psoriasis. My final recommendations will be communicated back to the requesting physician by way of shared medical record or letter via US mail SKIN EXAM NEW CC: This patient is a 58 year old male. Patient presents with: Rash: Arms and legs HPI: Location: arms and legs Appearance (size, shape, color): red circular rash Duration: many years Symptoms (growing, itching, bleeding, tender): spreading to different areas, a little itchy at times but not much Treatments: Humira in past at [facility] Was treatment effective: no, had upper body pain when he would inject the Humira and had to stop the medication Was on MTX in the past as well, also had to stop that but is unsure what happened Chart notes MTX as an allergy Joint pain in the back, has appointment with Spine Never biopsied Never given steroids that he recalls but may have years ago? No family history of psoriasis -Personal history of skin cancer: No -History of blistering sunburns:No -Family history of skin cancer: No SOC: Social History Tobacco Use Smoking status: Never Smokeless tobacco: Never Substance Use Topics Alcohol use: Yes Drug use: No MEDS: Current outpatient prescriptions: Current Outpatient Medications on File Prior to Visit Medication Sig HUMALOG U-100 INSULIN 100 unit/mL injection INJECT 90 UNITS DAILY VIA INSULIN PUMP famotidine (PEPCID) 20 mg tablet Take 1 tablet by mouth twice daily. fluticasone (FLONASE) 50 mcg/actuation nasal spray Use in the nose. icosapent ethyl (VASCEPA) 1 gram Take 1 g by mouth. 2 caps in the AM and 2 caps in the PM levothyroxine (SYNTHROID) 50 mcg tablet TAKE 2 TABLETS DAILY rosuvastatin (CRESTOR) 20 mg tablet TAKE ONE AND ONE-HALF TABLETS ONCE DAILY blood sugar diagnostic (CONTOUR NEXT TEST STRIPS) test strip Test 4 times daily ibuprofen (MOTRIN) 800 mg tablet Take 800 mg by mouth every 6 hours as needed. cyclobenzaprine (FLEXERIL) 10 mg tablet Take 10 mg by mouth three times daily as needed. doxycycline hyclate (VIBRAMYCIN) 100 mg capsule Take 100 mg by mouth twice daily. (Patient not taking: Reported on 06/06/2022 ) PROAIR HFA 90 mcg/actuation inhaler Inhale 2 Puffs as instructed as needed. ADVAIR HFA 115-21 mcg/actuation inhaler Inhale 4 Puffs as instructed once daily. DIABETIC TUSSIN EX 100 mg/5 mL syrup Take 10 mL by mouth every 4 hours as needed. MUCINEX 600 mg 12 hr tablet Take 2 tablets by mouth once daily as needed. SPIRIVA RESPIMAT 1.25 mcg/actuation mist Inhale 2 Puffs as instructed once daily. (Patient not taking: Reported on 06/06/2022 ) methotrexate 2.5 mg tablet Take 4 tablets by mouth once each week. (Patient not taking: Reported on06/04/2021 ) folic acid 1 mg tablet Take 1 tablet by mouth once daily. CIALIS 20 mg tab(s) TAKE DIRECTED Subcutaneous Insulin Pump (ACCU-CHEK SPIRIT INSULIN PUMP) misc Basal rates: 24:00 --1.6units/hr; 030 0:-2.3units/hr;06:00-1.8;11:00-1.8;12:00-2.0;16:00-2.2;19:00-2.7;21:00-2.4 ;22:00-1.6. Bolus: 2 unit/6 Gms CHO each meal; correction : 1 unit every 25 mg > 125 mg/dl. Whn wrk. hrd: tmp bas at 80% lisinopril (ZESTRIL) 2.5 mg tablet Take 4 tablets by mouth once daily. (Patient taking differently:Take 2.5 mg by mouth once daily. ) aspirin, enteric coated (ECOTRIN LOW STRENGTH) 81 mg ORAL EC tablet Take 1 tablet by mouth once daily. fluoxetine hcl(PROZAC 20 MG CAP) 3 tabs daily ONE TOUCH ULTRASOFT LANCETS uses 6-8 a day. Insulin pump. (Patient not taking: No sig reported) ONE TOUCH ULTRA TEST STRIPS chekc 6-8 timea a day(insulin pump) (Patient not taking: No sig reported) ONE TOUCH FINE POINT LANCET uses 6-8 a day (Patient not taking: uses 6-8 a day) CENTRUM ECHINACEA CAPSULE 100MG PO No current facility-administered medications on file prior to visit. ALLERGY: ALLERGIES Allergen Reactions Humira [Adalimumab] GI Upset Methotrexate Unknown Red Dye [Other] PAST MEDICAL HISTORY: No chronic skin disease or skin cancer FAMILY HISTORY: No chronic skin disease or skin cancer REVIEW OF SYSTEMS: Patient feels well and denies any recent fevers, chills, or nightsweats. PHYSICAL EXAM: The patient is a pleasant male in no distress. Patient is healthy, well developed, well nourished and in otherwise good health. he is alert and oriented x 3. A skin exam was done of the face, bilateral upper/lower extremities and back. 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 Personnel directly involved with the procedure wore the appropriate PPE (Personal Protective Equipment). Patient/Surrogate Stated/Verified: PATIENT VERIFIED(optional for EMERGENT procedures): Patient name, Date of , Relevant allergies, and The intended procedure Time Out Communication: Intended patient and procedure match the source documents. Consent documented and matches the intended procedure. Relevant labs, photos, and/or imaging studies have been reviewed. Correct side/site marked and visible. No medications required for procedure. Fire risk assessed and interventions discussed. No implant(s) inserted. Sign Out: SIGN OUT (optional for EMERGENT procedures): All specimen containers correctly labeled. Punch biopsy to establish and confirm diagnosis. Photo taken: Yes Risks, benefits, alternatives and personnel required for punch biopsy reviewed with patient. Patient and provider agree as to site(s) to be biopsied. Patient verbalizes understanding and wishes to proceed. Site(s) prepped with alcohol and anesthetized with 1% lidocaine with epinephrine. The following was sent for histologic evaluation. LESION #1 R/O: Granuloma Annulare LOC OF LESION: right upper arm Size of punch used: 4 mm Hemostasis obtained with 5-0 gut interrupted sutures. (2) EBL: scant Bandaging applied. Patient tolerated procedure well and without complication. Written and verbal wound care instructions provided to patient, understanding verbalized. OK to call with results - pressure dressing placed - discussed treatment of GA including topical steroids, ILK and UVB - patient states understanding, we will hold off on medications until the biopsy results return OK to leave message. Follow up pending pathology. The patient is seen and examined by Patricia Mills CNP and the following reflects his/her service. Scribed by Alisha Bundy MA I agree with the Chief Complaint, ROS, and Past Histories independently gathered by the clinical user support analyst supervisor and the remaining scribed note accurately describes my personal service to the patient. Patricia Mills APRN.CHRISTINA February 16, 2024 3:23 PM Medical Decision Making: Problems: Moderate: New problem with uncertain prognosis Risk: Moderate: Drug management Medical Decision Making Level: 4 - Moderate documented in this encounterAshtabula [facility] Center02-28-2024 Instructions* Patient Instructions* Bernardino Villagomez DO - 12/31/2023 11:41 AM EST 1) see dermatology 2) would recommend upgrading pump to 780 G- will ask reps to reach out to you 3) continue your current pump settings BASAL Midnight 1.6 4AM 2.3 6AM 1.80 Noon 2.00 4PM 2.20 7PM 2.70 9PM 2.40 10PM 1.60 BOLUS 1 units per 4.5 grams CHO ISF 1 unit to lower by 25 mg/dL 4) continue levothyroxine 50 mcg/day (two tabs) daily 5) see ROD WELDER in [place] 6 months, me in one year. Get fasting blood work prior to f/u with R[facility] documented [facility] History of Present illness Narrative* Bernardino Villagomez DO - 12/31/2023 11:32 AM EST Reason for Consultation: 1- f/u- DM Type 1 w/ retinopathy 2- hyperlipidemia 3- Hypothyroidism Referring Physician: Dr Araya My final recommendations will be communicated back to the requesting physician by way of shared Medical record or letter via US mail. HISTORY OF PRESENT ILLNESS Mr. Lantigua is a 58 year old male presenting here today for a follow up of type 1 diabetes mellitus,hyperlipidemia and hypothyroidism. Last visit with me was 12/2022- saw Glo Sandra in the interim- 06/2023. As I recall, he was diagnosed with type 1 diabetes in 1990. Microvascular complications include retinopathy hx of photocoagulation. He is uptodate with ophthalmology evaluation- states eyes are stable. Now using Medtronic 770 G- most recent settings as below. In automode 93% of the time.POC HbA1c 7.2%. Doing well overall. Exacerbating factors include: labile BG Current diabetes regimen is as follows: BASAL Midnight 1.6 4AM 2.3 6AM 1.80 Noon 2.00 4PM 2.20 7PM 2.70 9PM 2.40 10PM 1.60 BOLUS 1 units per 4.5 grams CHO ISF 1 unit to lower by 25 mg/dL AVG BG 149 +/- 42 mg/dL TDD insulin 64 units/day Basal/bolus 43/57 % AVG CHO: 111 gram/day He is checking his blood glucose 5 times daily + sensor. Pump uploaded and data reviewed This continuous glucose monitoring (sensor) data can be found in the procedure note CGM Report Interpretation: 1. Nocturnal glucose control: Uncontrolled glucose NOT previously detected: No If yes: Not applicable Notes: overnight control is good is automated mode. 2. Post prandial glucose excursions: Uncontrolled glucose NOT previously detected: Yes If yes: Hyperglycemia detected Notes: at times some post prandial spikes 3. Hypoglycemia incidence: Uncontrolled glucose NOT previously detected: No Notes: infrequent, but present at times. 4. Other (e.g., exercise/activity): n/a Hypoglycemia frequency: infrequent, but present at times. Hypoglycemia awareness: Yes Regarding symptoms of hyperglycemia, he is not experiencing any symptoms such as polyuria, polydipsia, nocturia or rapid weight loss or blurry vision, Regarding his thyroid, he was diagnosed with this around 2014. He is taking levothyroxine 50 mcg/day (two tabs) seven days/week. Feels well overall- no complaints/concerns at this time. Doing well- planning on retiring at age 60- No past medical history on file. PAST SURGICAL HISTORY Procedure Laterality Date ADENOIDECTOMY PRIMARY <AGE 11 age 5 Adenoidectomy LAPS ABD PRTM&OMENTUM DX W/WO SPEC BR/WA SPX 05/08 Laparoscopy: [...] Drug use: No Allergies As of Date: 12/31/2023 Allergen Noted Reaction HUMIRA [ADALIMUMAB] 08/20/2017 GI Upset METHOTREXATE 05/21/2019 Unknown RED DYE [OTHER] 07/20/2002 Fully Assessed 12/31/2023 Current Outpatient Medications Medication Sig Dispense Refill HUMALOG U-100 INSULIN 100 unit/mL injection INJECT 90 UNITS DAILY VIA INSULIN PUMP 100 mL 3 famotidine (PEPCID) 20 mg tablet Take 1 tablet by mouth twice daily. 180 tablet 3 fluticasone (FLONASE) 50 mcg/actuation nasal spray Use in the nose. icosapent ethyl (VASCEPA) 1 gram Take 1 g by mouth. 2 caps in the AM and 2 caps in the PM levothyroxine (SYNTHROID) 50 mcg tablet TAKE 2 TABLETS DAILY 180 tablet 4 rosuvastatin (CRESTOR) 20 mg tablet TAKE ONE AND ONE-HALF TABLETS ONCE DAILY 135 tablet 2 blood sugar diagnostic (CONTOUR NEXT TEST STRIPS) test strip Test 4 times daily ibuprofen (MOTRIN) 800 mg tablet Take 800 mg by mouth every 6 hours as needed. cyclobenzaprine (FLEXERIL) 10 mg tablet Take 10 mg by mouth three times daily as needed. doxycycline hyclate (VIBRAMYCIN) 100 mg capsule Take 100 mg by mouth twice daily. (Patient not taking: Reported on 06/06/2022 ) PROAIR HFA 90 mcg/actuation inhaler Inhale 2 Puffs as instructed as needed. ADVAIR HFA 115-21 mcg/actuation inhaler Inhale 4 Puffs as instructed once daily. DIABETIC TUSSIN EX 100 mg/5 mL syrup Take 10 mL by mouth every 4 hours as needed. 3 MUCINEX 600 mg 12 hr tablet Take 2 tablets by mouth once daily as needed. 0 SPIRIVA RESPIMAT 1.25 mcg/actuation mist Inhale 2 Puffs as instructed once daily. (Patient not taking: Reported on 06/06/2022 ) methotrexate 2.5 mg tablet Take 4 tablets by mouth once each week. (Patient not taking: Reported on06/04/2021 ) 0 folic acid 1 mg tablet Take 1 tablet by mouth once daily. 0 CIALIS 20 mg tab(s) TAKE DIRECTED 36 tablet 3 Subcutaneous Insulin Pump (ACCU-CHEK SPIRIT INSULIN PUMP) misc Basal rates: 24:00 --1.6units/hr; 030 0:-2.3units/hr;06:00-1.8;11:00-1.8;12:00-2.0;16:00-2.2;19:00-2.7;21:00-2.4 ;22:00-1.6. Bolus: 2 unit/6 Gms CHO each meal; correction : 1 unit every 25 mg > 125 mg/dl. Whn wrk. hrd: tmp bas at 80% 1 Each 0 lisinopril (ZESTRIL) 2.5 mg tablet Take 4 tablets by mouth once daily. (Patient taking differently:Take 2.5 mg by mouth once daily. ) 90 tablet 3 aspirin, enteric coated (ECOTRIN LOW STRENGTH) 81 mg ORAL EC tablet Take 1 tablet by mouth once daily. 0 fluoxetine hcl(PROZAC 20 MG CAP) 3 tabs daily 0 0 ONE TOUCH ULTRASOFT LANCETS uses 6-8 a day. Insulin pump. (Patient not taking: No sig reported) 7003 ONE TOUCH ULTRA TEST STRIPS chekc 6-8 [...] cough or exertional dyspnea PHYSICAL EXAMINATION BP 147/79 Pulse 77 Wt 90.9 kg (200 lb 6.4 oz) BMI 30.47 kg/m GENERAL: Alert, no distress, cooperative SKIN: Skin [...] of the physical exam is noncontributory. DATA Component Latest Ref Rng & Units 03/05/2011 11/27/2018 12/01/2020 12/05/2021 Hemoglobin A1C 4.0 - 6.0 % 9.4 (H) Estimated Average Glucose mg/dL 223 Hemoglobin A1C (POCT) 4.2 - 5.6 % 7.6 (A) 6.9 (A) 7.1 (A) Creatinine Date Value Ref Range Status 11/16/2022 0.94 0.6 - 1.3 MG/DL Final Hemoglobin A1C (%) Date Value 11/16/2022 7.2 Hemoglobin A1C (POCT) (%) Date Value 12/31/2023 7.2 ) No components found for: URINEALBUMIN Cholesterol, Total (mg/dL) Date Value 12/28/2003 245 HDL Cholesterol (mg/dL) Date Value 12/28/2003 66 LDL Cholesterol (mg/dL) Date Value 12/28/2003 157 Triglyceride (mg/dL) Date Value 12/28/2003 111 IMPRESSION: Mr. Lantigua is a 58 year old male here for a follow up of type 1 diabetes mellitus, hyperlipidemia and hypothyroidism. RECOMMENDATIONS: 1. Glycemic control: Target HbA1C is less than 7.0% per ADA guidelines. This patient is at/near goal- HbA1c 7.1%- he is doing well. Recommend the followin) see dermatology 2) would recommend upgrading pump to 780 G- will ask reps to reach out to you 3) continue your current pump settings BASAL Midnight 1.6 4AM 2.3 6AM 1.80 Noon 2.00 4PM 2.20 7PM 2.70 9PM 2.40 10PM 1.60 BOLUS 1 units per 4.5 grams CHO ISF 1 unit to lower by 25 mg/dL 4) continue levothyroxine 50 mcg/day (two tabs) daily 5) see CHRISTINA in [place] 6 months, me in one year. Get fasting blood work prior to f/u with ROD WELDER The patient was reminded to check his [...] diabetes is 130/80. This patient is at targeton their current regimen. 3. Lipids: Target LDL cholesterol in patients with diabetes is less than 100, less than 70 if patient has overt CVD. Several studies have shown cardiovascular benefits of statin therapy in all patients with diabetes over age 40 with at least 1 CVD risk factor. This patient is currently at target onstatin therapy. Rx sent to his pharmacy. 4. Antiplatelet therapy: Low dose antiplatelet therapy is recommended for patients with diabetes atincreased cardiovascular risk. This includes most men over [...] has no history of retinopathy. 7. Hypothyroidsim: TSH/T4 at goal- continue levothyroxine 50 mcg/day (two tabs) daily. The patient was asked to f/u with ROD WELDER in 6 months, me in 1 year Bernardino Villagomez DO documented in this encounterAs[facility]02-28-[facility]24 Procedure note* Madison De La Cruz RN - 12/31/2023 11:27 AM ESTProcedure(s): EXTERNAL HUMAN SERVICES PROFESSIONAL, CGM SYS Images from the original note were not included. documented in this [facility]02-16-2024 Miscellaneous Notes* Telephone Encounter - Dora Arevalo MA - 12/19/2023 2:41 PM EST Received [employer] form and placed on physicians desk for review. documented in this encounterAsht[facility]ula [facility]11-21-2023 Miscellaneous Notes* Telephone Encounter - Dora Arevalo MA - 09/23/2023 8:57 AM EST Requester: Pharmacy Patients last Endocrinology visit occurred 06/17/2023. Follow-up evaluation has been established Upcoming Endocrinology Appointments - Next 365 Days Visit Type Date Time Department EST MILAGROS PATIENT 12/23/2023 2:20 PM ENDO [facility] . Requested Prescriptions Pending Prescriptions Disp Refills HUMALOG U-100 INSULIN 100 unit/mL injection [Pharmacy Med Name: HUMALOG VIAL 10ML 100U/ML] 100 mL 3 Sig: INJECT 90 UNITS DAILY VIA INSULIN PUMP If patient is due for an appointment please route to provider for refill consideration and also to the endo scheduling pool. PSS NOTE: Patient needs scheduled appointment No documented in this encounterAsht[facility]10-17-2023 Miscellaneous Notes* Telephone Encounter - Dora Arevalo MA - 08/19/2023 4:41 PM EDT Received [employer] supplies 2 forms. A4211 supplies for self admin injections and K0603 replacement battery and placed on providers desk. documented in this encounterAsht[facility]ula [facility]08-24-2023 Evaluation + Plan note Extracted from: Title:ANES Post Op - General Author:MD Woodall Ahmad F Date:06/26/23 Plan Transfer/Discharge: Transfer/Discharge Discharge when meets criteria ( To home ). Extracted from: Title:ANES Pre Op - Adult General Author:Gardenia aranda MD, Ahmad F Date:06/26/23 Plan [place] [employer] (ASA) physical status classification: Class III. Anesthetic Preoperative Plan Anesthesia: General. . Anesthetic plan, risks, benefits, and alternatives discussed with the patient and/or family. Risks discussed: nausea, vomiting, headache, sore throat, dental injury, serious complications. Patient verbalized understanding. Communication: face to face with patient 5 minutes. [facility]08-24-2023 Hospital Discharge instructions Patient Education 06/26/2023 11:47:50 Post Op Patient Instructions - (CUSTOM) Follow Up Care 04/10/2023 08:41:40 With:Vidhya Cueto Address: [address] [place] [id number] Business (1) [address] [place] [address], [address] [place] [address]- Business (1) When:07/02/2023 [facility]06-15-2023 Evaluation note* Encounter Date Diagnosis Assessment Notes Treatment Notes Treatment Clinical Notes Apr, Acute pain of right shoulder (ICD-10 - M25.511) Apr, Tear of right rotator cuff, unspecified tear extent, unspecified whether traumatic (ICD-10 - M75.101) Radiographs reviewed with patient today. Discussed there is no changes from previous exam. We discussed repeat injections vs surgical treatment. Patient states he would like to proceed with repeat injection today A marcaine / kenalog cortisone injection was performed into the subacromial space under sterile technique. Patient tolerated the injection well with no adverse reaction. Examination and assessment of this patient was performed by Jodi Nolan NP and patient will continue with the treatment plan per Dr. Calderon, who initiated this treatment plan. Dr. Calderon is present in the office today and providing supervision. [employer] Other [id number] Miscellaneous Notes* Telephone Encounter - Jodi Laws Pss - 03/10/2023 11:39 AM EDT Requestor:Patient Patient is identified by name and birthdate: Yes Patient reminded to check with pharmacy in 24-48 hours: Yes Prescriber Verified: Yes Pharmacy benefits have been verified: Yes Pharmacy updated in [facility]: Yes Is medication controlled substance: No Medication instructions verified (dose, dosing instructions [sig], dispense amount [30 or 90 day supply], refills): Yes -If medication is not on the MAR please get additional information Are any other medications due for a refill in the next 3 months: No Requested Prescriptions Pending Prescriptions Disp Refills famotidine (PEPCID) 20 mg tablet 180 tablet 3 Sig: Take 1 tablet by mouth twice daily. documented in this encounterAsht[facility]ula [facility]05-02-2023 Miscellaneous Notes* Telephone Encounter - Madison De La Cruz RN - 03/04/2023 3:37 PM EDT Received Approval notice for Replacement Glucose Monitoring System. Valid to 02/21/2024. documented in this encounterAsht[facility]03-29-2023 Evaluation note* Encounter Date Diagnosis Assessment Notes Treatment Notes Treatment Clinical Notes Jan, Left wrist pain (ICD-10 - M25.532) Jan, Localized primary osteoarthritis of carpometacarpal (CMC) joint of left wrist (ICD-10 - M19.032) Physical exam was performed today, patient is progressing well with his previous injection. We will have the patient f/u in about 8 weeks, if patient is doing well then the patient can call and extend that 8 weeks until he feels symptoms coming back. [employer] Other 03-01-2023 Evaluation note* Encounter Date Diagnosis Assessment Notes Treatment Notes Treatment Clinical Notes Jan, Left wrist pain (ICD-10 - M25.532) Jan, Localized primary osteoarthritis of carpometacarpal (CMC) joint of left wrist (ICD-10 - M19.032) X-rays results and MRI results reviewed with patient today. We discussed the conservative treatment options which can be beneficial in relieving pain, including hand occupational therapy, wearing a brace, and non-steroidal anti-inflammatory medication. We discussed the use of occasional cortisone injections that can provide pain relief. We performed a cortisone injection into the CMC joint under sterile technique. The patient tolerated this well without complication. We discussed that the finger may feel numb and tingle for hours after this injection. Patient encouraged to continue with use of Voltaren gel twice daily. Patient encouraged to continue with use of wrist brace. [employer] Other 02-15-2023 Instructions* Patient Instructions* Bernardino Villagomez, - 12/18/2022 3:48 PM EST 1) continue your current pump settings BASAL Midnight 1.6 4AM 2.3 6AM 1.80 Noon 2.00 4PM 2.20 7PM 2.70 9PM 2.40 10PM 1.60 BOLUS 1 units per 4.5 grams CHO ISF 1 unit to lower by 25 mg/dL 2) continue levothyroxine 50 mcg/day (two tabs) daily 3) see ROD WELDER in [place] 6 months, me in one year. Get fasting blood work prior to f/u with ROD WELDER 4) f/u with ophthalmology as scheduled in January. documented in this encounterAs[facility]02-15-2023 History of Present illness Narrative* Bernardino Villagomez DO - 12/18/2022 3:40 PM EST Reason for Consultation: 1- f/u- DM Type 1 w/ retinopathy 2- hyperlipidemia 3- Hypothyroidism Referring Physician: Dr Araya My final recommendations will be communicated back to the requesting physician by way of shared Medical record or letter via US mail. HISTORY OF PRESENT ILLNESS Mr. Lantigua is a 57 year old male presenting here today for a follow up of type 1 diabetes mellitus,hyperlipidemia and hypothyroidism. Last visit with me was 12/2021- saw Glo Sandra in the interim- 06/2022. As I recall, he was diagnosed with type 1 diabetes in 1990. Microvascular complications include retinopathy hx of photocoagulation. He is uptodate with ophthalmology evaluation. Now using [employer] 770 G- most recent settings as below. In automode 83% of the time. HbA1c 7.2%. Doing well overall. Exacerbating factors include: labile BG Current diabetes regimen is as follows: BASAL Midnight 1.6 4AM 2.3 6AM 1.80 Noon 2.00 4PM 2.20 7PM 2.70 9PM 2.40 10PM 1.60 BOLUS 1 units per 4.5 grams CHO ISF 1 unit to lower by 25 mg/dL AVG BG 167 +/- 49 mg/dL TDD insulin 74.7 units/day Basal/bolus 46/54% AVG CHO: 155 gram/day he is checking his blood glucose 5 times daily + sensor. Pump uploaded and data reviewed This continuous glucose monitoring (sensor) data can be found in the procedure note CGM Report Interpretation: 1. Nocturnal glucose control: Uncontrolled glucose NOT previously detected: No If yes: Not applicable Notes: doing pretty well overnight- using control IQ 2. Post prandial glucose excursions: Uncontrolled glucose NOT previously detected: Yes If yes: Hyperglycemia detected Notes: at times after meals. 3. Hypoglycemia incidence: Uncontrolled glucose NOT previously detected: No Notes: infrequent if at all 4. Other (e.g., exercise/activity): sometimes low BG if activity is increased. Uses temp basals in this context. Hypoglycemia frequency: infrequent, but present at times. Hypoglycemia awareness: Yes Regarding symptoms of hyperglycemia, he is not experiencing any symptoms such as polyuria, polydipsia, nocturia or rapid weight loss or blurry vision, Regarding his thyroid, he was diagnosed with this around 2014. He is taking levothyroxine 50 mcg/day (two tabs) seven days/week. Feels well overall- no complaints/concerns at this time. Doing well- planning on retiring at age 60- No past medical history on file. PAST SURGICAL HISTORY Procedure Laterality Date ADENOIDECTOMY PRIMARY <AGE 11 age 5 Adenoidectomy LAPS ABD PRTM&OMENTUM DX W/WO SPEC BR/WA SPX 05/08 Laparoscopy: [...] Drug use: No Allergies As of Date: 12/18/2022 Allergen Noted Reaction HUMIRA [ADALIMUMAB] 08/20/2017 GI Upset METHOTREXATE 05/21/2019 Unknown RED DYE [OTHER] 07/20/2002 Fully Assessed 06/06/2022 Current Outpatient Medications Medication Sig Dispense Refill HUMALOG U-100 INSULIN 100 unit/mL injection INJECT 90 UNITS DAILY VIA INSULIN PUMP 100 mL 3 fluticasone (FLONASE) 50 mcg/actuation nasal spray Use in the nose. famotidine (PEPCID) 20 mg tablet TAKE 1 TABLET TWICE A DAY 180 tablet 3 icosapent ethyl (VASCEPA) 1 gram Take 1 g by mouth. 2 caps in the AM and 2 caps in the PM levothyroxine (SYNTHROID) 50 mcg tablet TAKE 2 TABLETS DAILY 180 tablet 4 rosuvastatin (CRESTOR) 20 mg tablet TAKE ONE AND ONE-HALF TABLETS ONCE DAILY 135 tablet 2 blood sugar diagnostic (CONTOUR NEXT TEST STRIPS) test strip Test 4 times daily ibuprofen (MOTRIN) 800 mg tablet Take 800 mg by mouth every 6 hours as needed. cyclobenzaprine (FLEXERIL) 10 mg tablet Take 10 mg by mouth three times daily as needed. doxycycline hyclate (VIBRAMYCIN) 100 mg capsule Take 100 mg by mouth twice daily. (Patient not taking: Reported on 06/06/2022 ) PROAIR HFA 90 mcg/actuation inhaler Inhale 2 Puffs as instructed as needed. ADVAIR HFA 115-21 mcg/actuation inhaler Inhale 4 Puffs as instructed once daily. DIABETIC TUSSIN EX 100 mg/5 mL syrup Take 10 mL by mouth every 4 hours as needed. 3 MUCINEX 600 mg 12 hr tablet Take 2 tablets by mouth once daily as needed. 0 SPIRIVA RESPIMAT 1.25 mcg/actuation mist Inhale 2 Puffs as instructed once daily. (Patient not taking: Reported on 06/06/2022 ) methotrexate 2.5 mg tablet Take 4 tablets by mouth once each week. (Patient not taking: Reported on06/04/2021 ) 0 folic acid 1 mg tablet Take 1 tablet by mouth once daily. 0 CIALIS 20 mg tab(s) TAKE DIRECTED 36 tablet 3 Subcutaneous Insulin Pump (ACCU-CHEK SPIRIT INSULIN PUMP) misc Basal rates: 24:00 --1.6units/hr; 030 0:-2.3units/hr;06:00-1.8;11:00-1.8;12:00-2.0;16:00-2.2;19:00-2.7;21:00-2.4 ;22:00-1.6. Bolus: 2 unit/6 Gms CHO each meal; correction : 1 unit every 25 mg > 125 mg/dl. Eva hein. hrd: tmp bas at 80% 1 Each 0 lisinopril (ZESTRIL) 2.5 mg tablet Take 4 tablets by mouth once daily. (Patient taking differently:Take 2.5 mg by mouth once daily. ) 90 tablet 3 aspirin, enteric coated (ECOTRIN LOW STRENGTH) 81 mg ORAL EC tablet Take 1 tablet by mouth once daily. 0 fluoxetine hcl(PROZAC 20 MG CAP) 3 tabs daily 0 0 ONE TOUCH ULTRASOFT LANCETS uses 6-8 a day. Insulin pump. (Patient not taking: No sig reported) 7003 ONE TOUCH ULTRA TEST STRIPS chekc 6-8 [...] cough or exertional dyspnea PHYSICAL EXAMINATION BP 129/85 Pulse 102 Wt 88.9 kg (196 lb) BMI 29.80 kg/m GENERAL: Alert, no distress, cooperative SKIN: Skin [...] of the physical exam is noncontributory. DATA Component Latest Ref Rng & Units 03/05/2011 11/27/2018 12/01/2020 12/05/2021 Hemoglobin A1C 4.0 - 6.0 % 9.4 (H) Estimated Average Glucose mg/dL 223 Hemoglobin A1C (POCT) 4.2 - 5.6 % 7.6 (A) 6.9 (A) 7.1 (A) Creatinine Date Value Ref Range Status 11/16/2022 0.94 0.6 - 1.3 MG/DL Final Hemoglobin A1C (%) Date Value 11/16/2022 7.2 ) No components found for: URINEALBUMIN Cholesterol, Total (mg/dL) Date Value 12/28/2003 245 HDL Cholesterol (mg/dL) Date Value 12/28/2003 66 LDL Cholesterol (mg/dL) Date Value 12/28/2003 157 Triglyceride (mg/dL) Date Value 12/28/2003 111 IMPRESSION: Mr. Lantigua is a 57 year old male here for a follow up of type 1 diabetes mellitus, hyperlipidemia and hypothyroidism. RECOMMENDATIONS: 1. Glycemic control: Target HbA1C is less than 7.0% per ADA guidelines. This patient is at/near goal- HbA1c 7.1%- he is doing well. Recommend the followin) continue your current pump settings BASAL Midnight 1.6 4AM 2.3 6AM 1.80 Noon 2.00 4PM 2.20 7PM 2.70 9PM 2.40 10PM 1.60 BOLUS 1 units per 4.5 grams CHO ISF 1 unit to lower by 25 mg/dL 2) continue levothyroxine 50 mcg/day (two tabs) daily 3) see CHRISTINA in [place] 6 months, me in one year. Get fasting blood work prior to f/u with ROD WELDER 4) f/u with ophthalmology as scheduled in January. The patient was reminded to check his [...] diabetes is 130/80. This patient is at targeton their current regimen. 3. Lipids: Target LDL cholesterol in patients with diabetes is less than 100, less than 70 if patient has overt CVD. Several studies have shown cardiovascular benefits of statin therapy in all patients with diabetes over age 40 with at least 1 CVD risk factor. This patient is currently at target onstatin therapy. Rx sent to his pharmacy. 4. Antiplatelet therapy: Low dose antiplatelet therapy is recommended for patients with diabetes atincreased cardiovascular risk. This includes most men over [...] has no history of retinopathy. 7. Hypothyroidsim: TSH/T4 at goal- continue levothyroxine 50 mcg/day (two tabs) daily. TSH 11/2022 stable / at goal at 2.092. The patient was asked to f/u with CHRISTINA in 6 months, me in 1 year Bernardino Villagomez DO documented in this encounterAshtabula [facility]02-15-2023 Procedure note* Dora Arevalo MA - 12/18/2022 3:38 PM ESTProcedure(s): EXTERNAL HUMAN SERVICES PROFESSIONAL, CGM SYS Images from the original note were not included. documented in this [facility]01-05-2023 Miscellaneous Notes* Telephone Encounter - Dora Arevalo MA - 11/07/2022 4:33 PM EST [employer] CMN form and request for last 2 office notes along with pump download. Form, office notes and pump placed on providers desk for signature. documented in this [facility]11-28-2022 Miscellaneous Notes* Telephone Encounter - Dora Arevalo MA - 09/30/2022 11:00 AM EST Requester: Pharmacy Patients last Endocrinology visit occurred 06/06/2022. Follow-up evaluation has been established 12/18/2022. Requested Prescriptions Pending Prescriptions Disp Refills HUMALOG U-100 INSULIN 100 unit/mL injection [Pharmacy Med Name: HUMALOG VIAL 10ML 100U/ML] 100 mL 3 Sig: INJECT 90 UNITS DAILY VIA INSULIN PUMP If patient is due for an appointment please route to provider for refill consideration and also to the endo scheduling pool. PSS NOTE: Patient needs scheduled appointment No documented in this [facility]11-11-2022 Miscellaneous Notes* Telephone Encounter - Dora Arevalo MA - 09/13/2022 4:20 PM EST Annabelle PARRA CGM done electronically documented in this [facility]09-07-2022 Miscellaneous Notes* Telephone Encounter - Hayden Gunn MA - 07/10/2022 11:47 AM EDT Caller verbally verified by name and date of . Patient gave verbal understanding of message below and appreciated the clarification. No further questions or concerns at this time. * Telephone Encounter - Glo Sandra APRN.CNP - 07/10/2022 10:29 AM EDT Please inform him all kidney function blood tests were normal. In addition to blood tests, we do check a urine test that detects small proteins in the urine. He had this test done in April and May actually. His April test was normal (negative for protein in the urine). His May test showed a very slight amount of protein in the urine (<30 is normal and his value was only 33). This number can be affected by high blood sugars or high blood pressure. His A1c and BP were stable at our last appointment. He is on lisinopril already which is what we prescribe people with protein in the urine to protect the kidneys. We would just monitor this- but reassure himit was only a mild elevation and he had a normal test 3 weeks prior. There is an order to recheck prior to his next appointment. * Telephone Encounter - Patricia Best LPN - 07/10/2022 9:13 AM EDT Message given below. Patient wants Glo to specifically review the kidney function tests done inJuly and inform him if all is within normal limits. * Telephone Encounter - Glo Sandra APRN.CNP - 07/10/2022 9:04 AM EDT Patient had urine protein test as well as kidney function test in May, so he is not overdue. Repeat labs were ordered for prior to his appointment with Dr. Villagomez (patient was provided with requisitions). * Telephone Encounter - Shanita Reyes Pss - 07/09/2022 3:42 PM EDT Patient received a letter today from his insurance company stating he may be overdue for a diabetic kidney health evaluation. That was all it said. Is this something that would be done in his visits with Glo Sandra and Dr Villagomez? Please advise at [phone]. documented in this encounterAs[facility] Instructions* Patient Instructions* Glo Sandra APRN.CNP - 06/06/2022 3:57 PM EDT 1) continue your current pump settings 2) continue levothyroxine 50 mcg/day (two tabs) daily 3) see Dr. Villagomez in six months as scheduled, with labs prior documented in this encounterAsht[facility]08-04-[facility] History of Present illness Narrative* Glo Sandra APRN.CHRISTINA - 06/06/2022 3:38 PM EDT Reason for Consultation: 1- DM Type 1 w/ retinopathy 2- hyperlipidemia 3- Hypothyroidism Referring Physician: Dr Araya My final recommendations will be communicated back to the requesting physician by way of shared Medical record or letter via US mail. HISTORY OF PRESENT ILLNESS Mr. Lantigua is a 56 year old male presenting here today for a follow up of type 1 diabetes mellitus,hyperlipidemia and hypothyroidism. Last visit with Dr. Villagomez was 12/2021. As I recall, he was diagnosed with type 1 diabetes in 1990. Microvascular complications include retinopathy hx of photocoagulation. He is uptodate with ophthalmology evaluation. Using Medtronic 670 G- most recent settings as below. In automode 93% of the time. Recent HbA1c is 7.2%. Doing well- no acute complaints/concerns atthis time. Exacerbating factors include: labile BG Current diabetes regimen is as follows: BASAL Midnight 1.60 4AM 2.30 6AM 1.80 Noon 2.00 4PM 2.20 7PM 2.70 9PM 2.40 10PM 1.60 BOLUS 1 units per 4.5 grams CHO ISF 1 unit to lower by 25 mg/dL AVG BG 188 +/- 79 mg/dL TDD insulin 78 units/day Basal/bolus 61/39% AVG CHO: 124 gram/day he is checking his blood glucose 5 times daily + sensor. Pump uploaded and data reviewed. Summary of Personal CGM Findings: Dates worn: 05/24/2022-06/06/2022 CGM Type: Guardian 1- CGM recording is adequate for interpretation. Worn 92% of time. 2- Average glucose is 188 mg/dl. 3. 67% time in range 70-180mg/dL 4. Coefficient of variation: 29.3% 5. Total frequency of hypoglycemia: 1% with BG<70 * Hypoglycemia patterns: not significant *Nocturnal hypoglycemia none noted 6- Hyperglycemic episodes 31% with BG>180 * Hyperglycemia Patterns: not significant Hypoglycemia frequency: infrequent, but present at times. Hypoglycemia awareness: Yes Regarding symptoms of hyperglycemia, he is not experiencing any symptoms such as polyuria, polydipsia, nocturia or rapid weight loss or blurry vision. Regarding his thyroid, he was diagnosed with this around 2014. He is taking levothyroxine 50 mcg/day (two tabs) seven days/week. Feels well overall- no complaints/concerns at this time. No past medical history on file. PAST SURGICAL HISTORY Procedure Laterality Date ADENOIDECTOMY PRIMARY <AGE 11 age 5 Adenoidectomy LAPS ABD PRTM&OMENTUM DX W/WO SPEC BR/WA SPX 05/08 Laparoscopy: mass in the omentum TONSILLECTOMY PRIMARY/SECONDARY <AGE 11 age 5 Tonsillectomy FAMILY HISTORY Problem Relation Age of Onset None Mother MVP Lipids Father dementia. Multiple strokes. Ischemic Heart Disease Other cousing CAD age 44. None Son None Daughter Diabetes Paternal Uncle Social History Tobacco Use Smoking status: Never Smoker Smokeless tobacco: Never Used Substance Use Topics Alcohol use: Yes Drug use: No Allergies As of Date: 06/06/2022 Allergen Noted Reaction HUMIRA [ADALIMUMAB] 08/20/2017 GI Upset METHOTREXATE 05/21/2019 Unknown RED DYE [OTHER] 07/20/2002 Fully Assessed 06/06/2022 Current Outpatient Medications Medication Sig Dispense Refill HUMALOG U-100 INSULIN 100 unit/mL injection INJECT 90 UNITS DAILY VIA INSULIN PUMP 100 mL 3 fluticasone (FLONASE) 50 mcg/actuation nasal spray Use in the nose. famotidine (PEPCID) 20 mg tablet TAKE 1 TABLET TWICE A DAY 180 tablet 3 icosapent ethyl (VASCEPA) 1 gram Take 1 g by mouth. 2 caps in the AM and 2 caps in the PM levothyroxine (SYNTHROID) 50 mcg tablet TAKE 2 TABLETS DAILY 180 tablet 4 rosuvastatin (CRESTOR) 20 mg tablet TAKE ONE AND ONE-HALF TABLETS ONCE DAILY 135 tablet 2 blood sugar diagnostic (CONTOUR NEXT TEST STRIPS) test strip Test 4 times daily ibuprofen (MOTRIN) 800 mg tablet Take 800 mg by mouth every 6 hours as needed. cyclobenzaprine (FLEXERIL) 10 mg tablet Take 10 mg by mouth three times daily as needed. doxycycline hyclate (VIBRAMYCIN) 100 mg capsule Take 100 mg by mouth twice daily. PROAIR HFA 90 mcg/actuation inhaler Inhale 2 Puffs as instructed as needed. ADVAIR HFA 115-21 mcg/actuation inhaler Inhale 4 Puffs as instructed once daily. DIABETIC TUSSIN EX 100 mg/5 mL syrup Take 10 mL by mouth every 4 hours as needed. 3 MUCINEX 600 mg 12 hr tablet Take 2 tablets by mouth once daily as needed. 0 SPIRIVA RESPIMAT 1.25 mcg/actuation mist Inhale 2 Puffs as instructed once daily. methotrexate 2.5 mg tablet Take 4 tablets by mouth once each week. (Patient not taking: Reported on06/04/2021 ) 0 folic acid 1 mg tablet Take 1 tablet by mouth once daily. 0 CIALIS 20 mg tab(s) TAKE DIRECTED 36 tablet 3 Subcutaneous Insulin Pump (ACCU-CHEK SPIRIT INSULIN PUMP) misc Basal rates: 24:00 --1.6units/hr; 030 0:-2.3units/hr;06:00-1.8;11:00-1.8;12:00-2.0;16:00-2.2;19:00-2.7;21:00-2.4 ;22:00-1.6. Bolus: 2 unit/6 Gms CHO each meal; correction : 1 unit every 25 mg > 125 mg/dl. Eva hein. hrd: tmp bas at 80% 1 Each 0 lisinopril (ZESTRIL) 2.5 mg tablet Take 4 tablets by mouth once daily. (Patient taking differently:Take 2.5 mg by mouth once daily. ) 90 tablet 3 aspirin, enteric coated (ECOTRIN LOW STRENGTH) 81 mg ORAL EC tablet Take 1 tablet by mouth once daily. 0 fluoxetine hcl(PROZAC 20 MG CAP) 3 tabs daily 0 0 ONE TOUCH ULTRASOFT LANCETS uses 6-8 a day. Insulin pump. (Patient not taking: No sig reported) 7003 ONE TOUCH ULTRA TEST STRIPS chekc 6-8 timea a day(insulin pump) (Patient not taking: No sig reported) 700 3 ONE TOUCH FINE [place] LANCET uses 6-8 a day (Patient not taking: uses 6-8 a day) 700 3 CENTRUM ECHINACEA CAPSULE 100MG PO 0 No current facility-administered medications for this visit. REVIEW OF SYSTEMS: GENERAL: No weight loss, malaise or fevers RESPIRATORY: Negative for cough, hemoptysis, wheezing, COPD, dyspnea or shortness of breath CARDIOVASCULAR: Negative for chest pain, leg swelling, hypertension, CHF or palpitations GI: No nausea, vomiting, or diarrhea ENDOCRINE: Negative for cold or heat intolerance, polyuria, polydipsia and goiter NEUROLOGIC:Negative for focal numbness or weakness, headaches and dizziness or syncope. PHYSICAL EXAM: BP 130/82 Pulse 76 Wt 88 kg (194 lb) BMI 29.50 kg/m General appearance: Well appearing, alert, in no acute distress, well-hydrated, well nourished. Skin: Skin color, texture, turgor normal, no suspicious rashes or lesions HEART: normal rate LUNGS: unlabored, normal respiratory rate EXTREMITIES No deformities, No skin discoloration and No edema NEURO: Speech normal, mental status intact, no tremor noted. DATA Creatinine Date Value Ref Range Status 12/28/2003 0.9 0.7 - 1.4 mg/dL Final Hemoglobin A1C (%) Date Value 03/05/2011 9.4 Hemoglobin A1C (POCT) (%) Date Value 12/05/2021 7.1 ) No components found for: URINEALBUMIN Cholesterol, Total (mg/dL) Date Value 12/28/2003 245 HDL Cholesterol (mg/dL) Date Value 12/28/2003 66 LDL Cholesterol (mg/dL) Date Value 12/28/2003 157 Triglyceride (mg/dL) Date Value 12/28/[address] Otilia Pruett GLYCOHEMOGLOBIN A1C on 05-20-2022 HbA1c (Bld) [Mass fraction] 7.2 % Critically high 4.5-6.2 [facility] PROF 14(COMP METB) on 05-20-2022 Albumin [Mass/Vol] 3.6 g/dL Normal 3.4-5.0 [facility] Albumin/Globulin [Mass ratio] 1.0 Normal [facility] ALP [Catalytic activity/Vol] 55 U/L Normal 46-116 [facility] ALT [Catalytic activity/Vol] 34 U/L Normal 16-63 [facility] Anion gap [Moles/Vol] 9.2 mmol/L Normal [facility] AST [Catalytic activity/Vol] 20 U/L Normal 15-37 [facility] Bilirubin [Mass/Vol] 0.2 mg/dL Normal 0.2-1.0 [facility] Calcium [Mass/Vol] 9.4 mg/dL Normal 8.5-10.1 [facility] Chloride [Moles/Vol] 102 mmol/L Normal 98-107 [facility] CO2 [Moles/Vol] 30.1 mmol/L Normal 21.0-32.0 [facility] Creatinine [Mass/Vol] 1.02 mg/dL Normal 0.70-1.30 [facility] EGFR-AF LIBYAN >60 Normal >=60 [facility] EGFR-NON AF LIBYAN >60 Normal >=60 [facility] Globulin (S) [Mass/Vol] 3.5 g/dL Normal [facility] Glucose [Mass/Vol] 201 mg/dL Critically high 74-106 [facility] Potassium [Moles/Vol] 4.3 mmol/L Normal 3.5-5.1 [facility] Protein [Mass/Vol] 7.1 g/dL Normal 6.4-8.2 [facility] Sodium [Moles/Vol] 137 mmol/L Normal 136-145 [facility] Urea nitrogen [Mass/Vol] 18.0 mg/dL Normal 7.0-18.0 [facility] Urea nitrogen/Creatinine [Mass ratio] 17.6 mg/mg Normal [facility] LIPID PROFILE on 05-20-2022 CHOL-HDL RATIO NORM SEE BELOW Normal [facility] Cholesterol [Mass/Vol] 158 mg/dL Normal <=200 [facility] Cholesterol in HDL [Mass/Vol] 59 mg/dL Normal 40-60 [facility] Cholesterol in LDL [Mass/Vol] 73.0 mg/dL Normal [facility] Cholesterol.total/Cholesterol in HDL [Mass ratio] 2.7 Normal [facility] LDL CALC NORMAL SEE BELOW Normal [facility] Triglyceride [Mass/Vol] 130 mg/dL Normal <=150 [facility] VLDL CALC 26.0 mg/dL Normal [facility] MICROALB CREAT RATIO RANDOM on 05-20-2022 mALB <1.3 Normal <=30.0 [facility] MALB CR RATIO 33.8 mg/g Critically high 0.0-29.9 [facility] MALB CR RATIO RANGE SEE BELOW Normal [facility] URINE CREAT 38.48 mg/dL Normal 20.00-300.00 [facility] TSH on 05-20-2022 TSH 2.853 uIU/mL Normal 0.358-3.740 [facility] FREE T4 on 05-20-2022 Free T4 [Mass/Vol] 0.76 ng/dL Normal 0.76-1.46 [facility] IMPRESSION: Mr. Lantigua is a 56 year old male here for a follow up of type 1 diabetes mellitus, hyperlipidemia and hypothyroidism. HbA1c is 7.2% RECOMMENDATIONS: 1. Glycemic control: Target HbA1C is less than 7.0% per ADA guidelines. This patient is near goal. He is doing well overall. Recommend the followin) continue your current pump settings 2) continue levothyroxine 50 mcg/day (two tabs) daily 3) see Dr. Villagomez in six months as scheduled, with labs prior (printed requisitions, he will obtain at [place]) The patient was reminded to check his [...] with diabetes is 130/80. This patient is near target on their current regimen. 3. Lipids: Target LDL cholesterol in patients with diabetes is less than 100, less than 70 if patient has overt CVD. Several studies have shown cardiovascular benefits of statin therapy in all patients with diabetes over age 40 with at least 1 CVD risk factor. This patient is currently at target onstatin therapy. 4. Antiplatelet therapy: Low dose antiplatelet therapy is recommended for patients with diabetes atincreased cardiovascular risk. This includes most men over age 50 and most women over age 60. 5. Nephropathy screening: Annual measurement of urine albumin excretion is recommended in patients with diabetes. This patient has microalbuminuria and is on STALIN-I or ARB therapy. 6. Ophthalmology: Annual dilated eye exams are recommended for patients with type 1 and type 2 diabetes. This patient is up to date with their annual eye exam and has no history of retinopathy. Sees Dr. Langford, last seen within the past 6 months. 7. Hypothyroidsim: TSH/T4 at goal- continue levothyroxine 50 mcg/day (two tabs) daily. Some elements copied from my note (12/05/2021) which have been updated where appropriate, and all reflect current medical decision making from date of this visit. Glo Sandra APRN.ROD WELDER documented in this encounterAs[facility]04-19-2022 Miscellaneous Notes* Telephone Encounter - Dora Rueda Ma - 02/19/2022 10:48 AM EDT Spoke to patient and advised that a 30 day of logbook was needed for [email or web address] supplies. Patient does not know how to upload from and will stop in the office within the next week for us to upload datafrom pump. Faxed above info back to [email or web address]. * Telephone Encounter - Dora Rueda Ma - 02/19/2022 9:58 AM EDT Received [email or web address] form and placed on physicians desk for review. Faxed with confirmation along with last 2 office notes. documented in this encounterAsht[facility]12-21-2021 Evaluation note* Encounter Date Diagnosis Assessment Notes Treatment Notes Treatment Clinical Notes Oct, Acute pain of right shoulder (ICD-10 - M25.511) Oct, Tear of right rotator cuff, unspecified tear extent, unspecified whether traumatic (ICD-10 - M75.101) Radiographs reviewed with patient as evidence of rotator cuff tearing. Discussed treatment as continued conservative of physical therapy and occasional cortisone injection, versus surgical repair. Patient would like to continue conservative treatment for now, and may consider surgical repair months down the road. Advised ideally we will obtain a new MRI prior to pursuing surgery. We performed a marcaine / kenalog cortisone injection into the knee joint under sterile technique. Patient tolerated the injection well without adverse reaction. No MRIs are present in the [facility] system, patient will check [facility] and bring us a disk of images of the MRI. [employer] Other 04-12-2016 History of Past illness Narrative* Problem Noted Date Resolved Date Diabetes mellitus type 1, un controlled, without complications 02/13/2016 11/27/2018 Adult onset hypothyroidism 02/13/201611/27 acquired hypothyroidism 03/05/2011 11/27/19 19 ABNORMAL THYROID FUNCT STUDY (neg [facility]) 02/04/20 06 11/27/2018 documented as of this encounter (statuses as of 02/20/2022) [facility] of Past illness Narrative* Problem Noted Date Resolved Date Diabetes mellitus type 1, un controlled, without complications 02/13/2016 11/27/2018 Adult onset hypothyroidism 02/13/201611/27 acquired hypothyroidism 03/05/2011 11/27/19 19 ABNORMAL THYROID FUNCT STUDY (neg MCAB) 02/04/20 06 11/27/2018 documented as of this encounter (statuses as of 06/06/2022) [facility] of Past illness Narrative* Problem Noted Date Resolved Date Diabetes mellitus type 1, un controlled, without complications 02/13/2016 11/27/2018 Adult onset hypothyroidism 02/13/201611/27 acquired hypothyroidism 03/05/2011 11/27/19 19 ABNORMAL THYROID FUNCT STUDY (neg MCAB) 02/04/20 06 11/27/2018 documented as of this encounter (statuses as of 07/10/2022) [address]12-2016 History of Past illness Narrative* Problem Noted Date Resolved Date Diabetes mellitus type 1, un controlled, without complications 02/13/2016 11/27/2018 Adult onset hypothyroidism 02/13/201611/27 acquired hypothyroidism 03/05/2011 11/27/19 19 ABNORMAL THYROID FUNCT STUDY (neg MCAB) 02/04/20 06 11/27/2018 documented as of this encounter (statuses as of 09/13/2022) [facility] of [facility] illness Narrative* Problem Noted Date Resolved Date Diabetes mellitus type 1, un controlled, without complications 02/13/2016 11/27/2018 Adult onset hypothyroidism 02/13/201611/27 acquired hypothyroidism 03/05/2011 11/27/19 19 ABNORMAL THYROID FUNCT STUDY (neg MCAB) 02/04/20 06 11/27/2018 documented as of this encounter (statuses as of 09/30/2022) [facility] of [facility] illness Narrative* Problem Noted Date Resolved Date Diabetes mellitus type 1, un controlled, without complications 02/13/2016 11/27/2018 Adult onset hypothyroidism 02/13/201611/27 acquired hypothyroidism 03/05/2011 11/27/19 19 ABNORMAL THYROID FUNCT STUDY (neg MCAB) 02/04/20 06 11/27/2018 documented as of this encounter (statuses as of 11/08/2022) [facility] Narrative* Problem Noted Date Resolved Date Diabetes mellitus type 1, un controlled, without complications 02/13/2016 11/27/2018 Adult onset hypothyroidism 02/13/201611/27 acquired hypothyroidism 03/05/2011 11/27/19 19 ABNORMAL THYROID FUNCT STUDY (neg MCAB) 02/04/20 06 11/27/2018 documented as of this encounter (statuses as of 12/19/2022) [facility] Narrative* Problem Noted Date Resolved Date Diabetes mellitus type 1, un controlled, without complications 02/13/2016 11/27/2018 Adult onset hypothyroidism 02/13/201611/27 acquired hypothyroidism 03/05/2011 11/27/19 19 ABNORMAL THYROID FUNCT STUDY (neg MCAB) 02/04/20 06 11/27/2018 documented as of this encounter (statuses as of 03/11/2023) [facility] Narrative* Problem Noted Date Resolved Date Diabetes mellitus type 1, un controlled, without complications 02/13/2016 11/27/2018 Adult onset hypothyroidism 02/13/201611/27 acquired hypothyroidism 03/05/2011 11/27/19 19 ABNORMAL THYROID FUNCT STUDY (neg MCAB) 02/04/20 06 11/27/2018 documented as of this encounter (statuses as of 04/04/2023) [facility] Narrative* Problem Noted Date Diagnosed Date Resolved Date Diabetes mellitus type 1, un controlled, without complications 02/13/2016 11/27/2018 Adult onset hypothyroidism 02/13/2016 0 11/27/2018 acquired hypothyroidism 03/05/201111/04 ABNORMAL THYROID FUNCT STUDY (neg MCAB) 02/03/2006 11/27/2018 documented as of this encounter (statuses as of 08/20/2023) [address]12[address]2016 History of Past illness Narrative* Problem Noted Date Diagnosed Date Resolved Date Diabetes mellitus type 1, un controlled, without complications 02/13/2016 11/27/2018 Adult onset hypothyroidism 02/13/2016 0 11/27/2018 acquired hypothyroidism 03/05/201111/04 ABNORMAL THYROID FUNCT STUDY (neg MCAB) 02/03/2006 11/27/2018 documented as of this encounter (statuses as of 09/23/2023) [facility] Narrative* Problem Noted Date Diagnosed Date Resolved Date Diabetes mellitus type 1, un controlled, without complications 02/13/2016 11/27/2018 Adult onset hypothyroidism 02/13/2016 0 11/27/2018 acquired hypothyroidism 03/05/201111/04 ABNORMAL THYROID FUNCT STUDY (neg MCAB) 02/03/2006 11/27/2018 documented as of this encounter (statuses as of 12/19/2023) [facility] Narrative* Problem Noted Date Diagnosed Date Resolved Date Diabetes mellitus type 1, un controlled, without complications 02/13/2016 11/27/2018 Adult onset hypothyroidism 02/13/2016 0 11/27/2018 acquired hypothyroidism 03/05/201111/04 ABNORMAL THYROID FUNCT STUDY (neg MCAB) 02/03/2006 11/27/2018 documented as of this encounter (statuses as of 01/01/2024) [address]12[address]2016 History of Past illness Narrative* Problem Noted Date Diagnosed Date Resolved Date Diabetes mellitus type 1, un controlled, without complications 02/13/2016 11/27/2018 Adult onset hypothyroidism 02/13/2016 0 11/27/2018 acquired hypothyroidism 03/05/201111/04 ABNORMAL THYROID FUNCT STUDY (neg MCAB) 02/03/2006 11/27/2018 documented as of this encounter (statuses as of 02/06/2024) [address]12-2016 History of Past illness Narrative* Problem Noted Date Diagnosed Date Resolved Date Diabetes mellitus type 1, un controlled, without complications 02/13/2016 11/27/2018 Adult onset hypothyroidism 02/13/2016 0 11/27/2018 acquired hypothyroidism 03/05/201111/04 ABNORMAL THYROID FUNCT STUDY (neg MCAB) 02/03/2006 11/27/2018 documented as of this encounter (statuses as of 02/17/2024) [address]12[address]2016 History of Past illness Narrative* Problem Noted Date Diagnosed Date Resolved Date Diabetes mellitus type 1, un controlled, without complications 02/13/2016 11/27/2018 Adult onset hypothyroidism 02/13/2016 0 11/27/2018 acquired hypothyroidism 03/05/201111/04 ABNORMAL THYROID FUNCT STUDY (neg MCAB) 02/03/2006 11/27/2018 documented as of this encounter (statuses as of 02/19/2024) [address]2016 History of Past illness Narrative* Problem Noted Date Diagnosed Date Resolved Date Diabetes mellitus type 1, un controlled, without complications 02/13/2016 11/27/2018 Adult onset hypothyroidism 02/13/2016 0 11/27/2018 acquired hypothyroidism 03/05/201111/04 ABNORMAL THYROID FUNCT STUDY (neg MCAB) 02/03/2006 11/27/2018 documented as of this encounter (statuses as of 02/20/2024) [facility] + Plan note Future Appointments Appointment Date:06/26/2023 08:00:00 AM Scheduled Provider: Location:[facility] Appointment Type:Surgery [facility] note* Diagnosis Diabetes mellitus type 1, controlled, insulin dependent (HCC)- Primary Insulin pump status Mixed hyperlipidemia Acquired hypothyroidism Unspecified hypothyroidism documented in this encounter [facility] noteNo assessment information availableThe [facility] Work [facility]: [facility]* Diagnosis Mixed hyperlipidemia Adult onset hypothyroidism Insulin pump status documented in this encounter [facility] note* Diagnosis Diabetes mellitus type 1, controlled, insulin dependent (HCC)- Primary Insulin pump status documented in this encounter [facility] note* Diagnosis Mixed hyperlipidemia Adult onset hypothyroidism Insulin pump status documented in this encounter [facility] note* Diagnosis Plaque psoriasis- Primary Other psoriasis Adult onset hypothyroidism Diabetes mellitus type 1, controlled, insulin dependent (HCC) Insulin pump status documented in this encounter [facility] note* Diagnosis Rash and nonspecific skin eruption- Primary Rash and other nonspecific skin eruption documented in this encounter [facility] note* Diagnosis Bilateral low back pain with left-sided sciatica, unspecified chronicity- Primary documented in this encounter [facility] note* Diagnosis Granuloma annulare- Primary Other specified erythematous condition documented in this encounter [facility] note* Diagnosis Granuloma annulare- Primary Other specified erythematous condition documented in this encounter [facility] note* Diagnosis Chronic bilateral low back pain with left-sided sciatica- Primary Radiculopathy of lumbar region Thoracic or lumbosacral neuritis or radiculitis, unspecified documented in this encounter [facility] note* Diagnosis Granuloma annulare- Primary Other specified erythematous condition documented in this encounter [facility] note* Diagnosis Spinal stenosis of lumbar region, unspecified whether neurogenic claudication present- Primary Lumbar radiculopathy, chronic Thoracic or lumbosacral neuritis or radiculitis, unspecified Spinal stenosis of lumbar region, unspecified whether neurogenic claudication present Lumbar radiculopathy, chronic Thoracic or lumbosacral neuritis or radiculitis, unspecified documented in this encounter [facility] note* Diagnosis Spinal stenosis of lumbar region, unspecified whether neurogenic claudication present- Primary Lumbar radiculopathy, chronic Thoracic or lumbosacral neuritis or radiculitis, unspecified Spinal stenosis of lumbar region, unspecified whether neurogenic claudication present Lumbar radiculopathy, chronic Thoracic or lumbosacral neuritis or radiculitis, unspecified documented in this encounter [facility] note* Diagnosis Diabetes mellitus type 1, controlled, insulin dependent (HCC)- Primary Mixed hyperlipidemia Acquired hypothyroidism Unspecified hypothyroidism documented in this encounter [facility] note* Diagnosis Radiculopathy of lumbar region- Primary Thoracic or lumbosacral neuritis or radiculitis, unspecified Spinal stenosis of lumbar region, unspecified whether neurogenic claudication present documented in this encounter [facility] note* Diagnosis Lumbosacral radiculopathy at L5- Primary Neuropathy Mononeuritis of unspecified site Type 1 diabetes mellitus without complication (CMS/HCC) Type I (juvenile type) diabetes mellitus without mention of complication, not stated as uncontrolled Sciatica of left side Pain Generalized pain Flank pain Abdominal pain, unspecified site Background diabetic retinopathy (CMS/HCC) Moderate asthma with exacerbation, unspecified whether persistent (CMS/HCC) [facility] Radiculopathy of lumbar region Thoracic or lumbosacral neuritis or radiculitis, unspecified Spinal stenosis of lumbar region, unspecified whether neurogenic claudication present documented in this encounter [facility] note* Diagnosis Lumbosacral radiculopathy at L5- Primary Primary hypertension (CMS/HCC) Unspecified essential hypertension Neuropathy Mononeuritis of unspecified site Type 1 diabetes mellitus without complication (CMS/HCC) Type I (juvenile type) diabetes mellitus without mention of complication, not stated as uncontrolled Spinal stenosis, unspecified spinal region Sciatica of left side Pain Generalized pain Left leg pain Pain in soft tissues of limb Edema, unspecified type documented in this encounter [facility]* Diagnosis Radiculopathy, lumbar region- Primary Thoracic or lumbosacral neuritis or radiculitis, unspecified Spinal stenosis of lumbar region, unspecified whether neurogenic claudication present Radiculopathy, lumbar region Thoracic or lumbosacral neuritis or radiculitis, unspecified Spinal stenosis of lumbar region, unspecified whether neurogenic claudication present [facility] Diagnosis Mixed hyperlipidemia Adult onset hypothyroidism Insulin pump status Radiculopathy, lumbar region Thoracic or lumbosacral neuritis or radiculitis, unspecified Spinal stenosis of lumbar region, unspecified whether neurogenic claudication present [facility] Neuropathy Mononeuritis of unspecified site Spinal stenosis, unspecified spinal region Sciatica of left side documented in this encounter [facility]* Diagnosis Sciatica of left side Pain Generalized pain documented in this encounter [facility]* Diagnosis Primary hypertension ([facility]/HCC) Unspecified essential hypertension Neuropathy Mononeuritis of unspecified site Spinal stenosis, unspecified spinal region Sciatica of left side documented in this encounter [facility]* Diagnosis Abnormal MRI, lumbar spine- Primary Colon cancer screening Special screening for malignant neoplasms, colon documented in this encounter [facility]* Diagnosis Sciatica of left side Pain Generalized pain Spinal stenosis, unspecified spinal region documented in this encounter [facility]* Diagnosis Lumbosacral radiculopathy at L5 Spinal stenosis, unspecified spinal region documented in this encounter [facility]* Diagnosis Diabetes mellitus type 1, controlled, insulin dependent (HCC)- Primary [facility] Diabetes mellitus type 1, controlled, insulin dependent (HCC)- Primary Insulin pump status Acquired hypothyroidism Unspecified hypothyroidism [facility] Diagnosis Acute pain of left knee documented in this encounter [facility]* Diagnosis Intervertebral disc disorder with radiculopathy of lumbar region- Primary Thoracic or lumbosacral neuritis or radiculitis, unspecified [facility] Diagnosis Lumbosacral radiculopathy at L5 documented in this encounter [facility]* Diagnosis Pre-op evaluation- Primary Preoperative examination, unspecified Intervertebral disc disorder with radiculopathy of lumbar region Thoracic or lumbosacral neuritis or radiculitis, unspecified Intervertebral disc disorder with radiculopathy of lumbar region Thoracic or lumbosacral neuritis or radiculitis, unspecified [facility] Diagnosis Sciatica of left side Pain Generalized pain [facility]* Diagnosis Pre-op evaluation- Primary Preoperative examination, unspecified Mixed hyperlipidemia Type 1 diabetes mellitus with other specified complication (HCC) Primary hypertension Unspecified essential hypertension Acquired hypothyroidism Unspecified hypothyroidism Moderate asthma without complication, unspecified whether persistent Intervertebral disc disorder with radiculopathy of lumbar region Thoracic or lumbosacral neuritis or radiculitis, unspecified * Assessment & Plan Note - Prabha Gonzalez APRN.CNP - 12/30/2024 8:14 AM EST Associated Problem(s): Moderate asthma without complication Assessment: Stable with inhalers, follows with PCP . Rare use us Albuterol Inhaler * Assessment & Plan Note - Prabha Gonzalez APRN.CNP - 12/30/2024 8:13 AM EST Associated Problem(s): Acquired hypothyroidism Assessment: Stable with levothyroxine (SYNTHROID) , follows with Dr. Villagomez. * Assessment & Plan Note - Prabha Gonzalez APRN.CNP - 12/30/2024 8:13 AM EST Associated Problem(s): Primary hypertension Assessment: Managed with med, acceptable for surgery Date: BP: 12/30/2024 152/78 12/07/2024 153/64 * Assessment & Plan Note - Prabha Gonzalez APRN.CNP - 12/30/2024 8:12 AM EST Associated Problem(s): Type 1 diabetes mellitus with other specified complication (HCC) Assessment: Managed with insulin pump, CGM Follows with Dr. Alicja Villagomez ( Endocrinology , [facility] 12/07/2024) 12/07/2024 HgbA1c 7.1 % ; reports FBG 114 Hx diabetic retinopathy * Assessment & Plan Note - Prabha Gonzalez APRN.ROD WELDER - 12/30/2024 8:11 AM EST Associated Problem(s): Mixed hyperlipidemia Assessment: Managed with med , Follows with PCP documented in this encounter [facility] note* Diagnosis Pre-op evaluation- Primary Preoperative examination, unspecified Mixed hyperlipidemia Type 1 diabetes mellitus with other specified complication (HCC) Primary hypertension Unspecified essential hypertension Acquired hypothyroidism Unspecified hypothyroidism Moderate asthma without complication, unspecified whether persistent Radiculopathy, lumbar region Thoracic or lumbosacral neuritis or radiculitis, unspecified documented in this encounter [facility] note* Diagnosis Pre-op evaluation- Primary Preoperative examination, unspecified Mixed hyperlipidemia Type 1 diabetes mellitus with other specified complication (HCC) Primary hypertension Unspecified essential hypertension Acquired hypothyroidism Unspecified hypothyroidism Moderate asthma without complication, unspecified whether persistent (HCC) Chronic bilateral low back pain with left-sided sciatica- Primary documented in this encounter [facility] note* Diagnosis 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 type 1 diabetes mellitus (CMS/HCC)- Primary documented in this encounter [facility] [place], operated by [facility] note* Diagnosis Pre-op evaluation- Primary Preoperative examination, unspecified Mixed hyperlipidemia Type 1 diabetes mellitus with other specified complication (HCC) Primary hypertension Unspecified essential hypertension Acquired hypothyroidism Unspecified hypothyroidism Moderate asthma without complication, unspecified whether persistent (HCC) Radiculopathy, lumbar region Thoracic or lumbosacral neuritis or radiculitis, unspecified documented in this encounter [facility] note* Diagnosis Pre-op evaluation- Primary Preoperative examination, unspecified Mixed hyperlipidemia Type 1 diabetes mellitus with other specified complication (HCC) Primary hypertension Unspecified essential hypertension Acquired hypothyroidism Unspecified hypothyroidism Moderate asthma without complication, unspecified whether persistent (HCC) Chronic midline low back pain without sciatica- Primary Chronic bilateral low back pain with left-sided sciatica documented in this encounter [facility] note* Diagnosis Pre-op evaluation- Primary Preoperative examination, unspecified Mixed hyperlipidemia Type 1 diabetes mellitus with other specified complication (HCC) Primary hypertension Unspecified essential hypertension Acquired hypothyroidism Unspecified hypothyroidism Moderate asthma without complication, unspecified whether persistent (HCC) Chronic midline low back pain without sciatica- Primary Chronic bilateral low back pain with left-sided sciatica [facility] Diagnosis Pre-op evaluation- Primary Preoperative examination, unspecified Mixed hyperlipidemia Type 1 diabetes mellitus with other specified complication (HCC) Primary hypertension Unspecified essential hypertension Acquired hypothyroidism Unspecified hypothyroidism Moderate asthma without complication, unspecified whether persistent (HCC) Chronic midline low back pain without sciatica- Primary Chronic bilateral low back pain with left-sided sciatica [facility] Diagnosis Neuropathy- Primary Mononeuritis of unspecified site Primary hypertension (CMS/HCC) Unspecified essential hypertension Lumbosacral radiculopathy at L5 Type 1 diabetes mellitus without complication Type I (juvenile type) diabetes mellitus without mention of complication, not stated as uncontrolled Abnormal MRI, lumbar spine Acquired hypothyroidism (CMS/HCC) Unspecified hypothyroidism documented in this encounter [facility]* Diagnosis Pre-op evaluation- Primary Preoperative examination, unspecified Mixed hyperlipidemia Type 1 diabetes mellitus with other specified complication (HCC) Primary hypertension Unspecified essential hypertension Acquired hypothyroidism Unspecified hypothyroidism Moderate asthma without complication, unspecified whether persistent (HCC) Radiculopathy, lumbar region- Primary Thoracic or lumbosacral neuritis or radiculitis, unspecified [facility] Diagnosis Lumbosacral radiculopathy at L5 Abnormal MRI, lumbar spine documented in this encounter [facility]* Diagnosis Neuropathy Mononeuritis of unspecified site Spinal stenosis, unspecified spinal region Sciatica of left side documented in this encounter [facility]* Diagnosis Pre-op evaluation- Primary Preoperative examination, unspecified Mixed hyperlipidemia Type 1 diabetes mellitus with other specified complication (HCC) Primary hypertension Unspecified essential hypertension Acquired hypothyroidism Unspecified hypothyroidism Moderate asthma without complication, unspecified whether persistent (HCC) Chronic midline low back pain without sciatica- Primary [facility] Diagnosis Sciatica of left side Pain Generalized pain documented in this encounter [facility]* Diagnosis Lumbosacral radiculopathy at L5 Abnormal MRI, lumbar spine documented in this encounter [facility]* Diagnosis Pre-op evaluation- Primary Preoperative examination, unspecified Mixed hyperlipidemia Type 1 diabetes mellitus with other specified complication (HCC) Primary hypertension Unspecified essential hypertension Acquired hypothyroidism Unspecified hypothyroidism Moderate asthma without complication, unspecified whether persistent (HCC) Chronic midline low back pain without sciatica- Primary documented in this encounter [facility] note* Diagnosis Pre-op evaluation- Primary Preoperative examination, unspecified Mixed hyperlipidemia Type 1 diabetes mellitus with other specified complication (HCC) Primary hypertension Unspecified essential hypertension Acquired hypothyroidism Unspecified hypothyroidism Moderate asthma without complication, unspecified whether persistent (HCC) Chronic bilateral low back pain with left-sided sciatica- Primary documented in this encounter [facility] note* Diagnosis Pre-op evaluation- Primary Preoperative examination, unspecified Mixed hyperlipidemia Type 1 diabetes mellitus with other specified complication (HCC) Primary hypertension Unspecified essential hypertension Acquired hypothyroidism Unspecified hypothyroidism Moderate asthma without complication, unspecified whether persistent (HCC) Chronic bilateral low back pain with left-sided sciatica documented in this encounter [facility] general Narrative - Reported* Type Description Date Medical History diabetic Medical History asthma Medical History HTN Surgical History tonsils Surgical History adenotomy Surgical History endoscopy [employer] Other History general Narrative - Reported* Type Description Date Medical History diabetic Medical History asthma Medical History HTN Surgical History tonsils Surgical History adenotomy Surgical History endoscopy Hospitalization History Infection in the right f orearm 2021 [employer] Other Hospital course Narrative No data available for this section [facility] No data available for this section [facility] No data available for this section [facility] HospitalReason for referral (narrative)No reason for referral information availableA[facility] Work Phone: Reason for visit Narrative* Consult, Test, Treat (Routine) - Closed Specialty Diagnoses / Procedures Referred By Contkal t Referred To Contact Diagnoses Pre-op evaluation Procedures REFER TO [facility] - PREOPERATIVE OPTIMIZATION OFFICE/OUTPATIENT [facility] 60 MINUTES Avril Esparza PA-C [address] [place] [address] Phone: tel: fax: Referral ID Status Reason Start Date Expiration Date V isits Requested Visits Authorized [id number] Closed PCP Requested Referral 12/28/2024 12/28/2025 1 1 [facility] Summary Purpose Family History Relationship Condition Age at Onset Recorded Date/T sean father Hypertension Unknown Dementia Unknown Cerebrovascular accident (CVA) Unknown Not Specified Hypertension Unknown Mitral valve prolapse Unknown Glaucoma Unknown Relationship Condition Age at Onset Recorded Date/T sean father Hypertension Unknown Dementia Unknown Cerebrovascular accident (CVA) Unknown mother Hypertension Unknown Mitral valve prolapse Unknown Glaucoma Unknown Advance Directives Advance Directive Response Recorded Date/ Time Advance Directives No March 06, 2018 2:10pm Chief Complaint and Reason for Visit Chief Complaint lump on rt arm, numb ness subcutaneous mass of right upper extremity Chief Complaint Left Sciatica -bring ing in order M54.42 Chief Complaint m89.9 Chief Complaint Admit Date ref Dr. Araya back and leg pain April 202024 3:52pm M96.1 M54.16 M47.817 May 16, 2025 10: 44am Reason for Visit Admit Date Arthritis of lumbosacral spine April 3:52pm Lumbar radiculopathy April 20, 2025 3:5 2pm Other chronic pain April 20, 2025 3:52 pm Post laminectomy syndrome April 20 3:52pm Chief Complaint Admit Date ref Dr. Araya back and leg pain April 202024 3:52pm M96.1 M54.16 M47.817 May 16, 2025 10: 44am review MRI May 23, 2025 3:19 pm Reason for Visit Admit Date Arthritis of lumbosacral spine April 3:52pm Lumbar radiculopathy April 20, 2025 3:5 2pm Other chronic pain April 20, 2025 3:52 pm Post laminectomy syndrome April 20 3:52pm Arthritis of lumbosacral spine May 3:19pm Lumbar radiculopathy May 23, 2025 3:1 9pm Other chronic pain May 23, 2025 3:19 pm Post laminectomy syndrome May 23 3:19pm Reason for Referral Specialty Diagnoses / Procedures Referred By Contkal t Referred To Contact Diagnoses Radiculopathy of lumbar region Spinal stenosis of lumbar region, unspecified whether neurogenic claudication present Procedures CONSULT TO SPINE SURGERY OFFICE/OUTPATIENT [facility] MDM [address] [place] [address] [place] [address] Referral ID Status Reason Start Date Expiration Date V isits Requested Visits Authorized [id number] Authorized 07/21/2024 10/19/2024 1 1 Specialty Diagnoses / Procedures Referred By Contac t Referred To Contact MR IMAGING Diagnoses Chronic bilateral low back pain with left-sided sciatica Radiculopathy of lumbar region Procedures MRI LUMBAR SPINE WO IVCON MRI SPINAL CANAL LUMBAR W/O CONTRAST MATERIAL Parul Rico APRN.ROD WELDER [address] [place] [address] [place] [address] Referral ID Status Reason Start Date Expiration Date Visits Requested Visits Authorized [id number] Pending Review Auto-Generat ed Referral 03/24/2024 04/23/2025 1 1 Specialty Diagnoses / Procedures Referred By Contac t Referred To Contact XR IMAGING Diagnoses Chronic bilateral low back pain with left-sided sciatica Radiculopathy of lumbar region Procedures XR LUMBAR GENERAL 3V AP/LAT/L5-S1 RADEX SPINE LUMBOSACRAL 2/3 VIEWS Parul Rico APRN.ROD WELDER [address] [place] [address] [place] [address] Referral ID Status Reason Start Date Expiration Date Visits Requested Visits Authorized [id number] Pending Review Auto-Generat ed Referral 03/24/2024 04/23/2025 1 1 Specialty Diagnoses / Procedures Referred By Contac t Referred To Contact [facility] Diagnoses Bilateral low back pain with left-sided sciatica, unspecified chronicity Procedures CONSULT TO PHYSICAL THERAPY PHYSICAL THERAPY EVALUATION HIGH COMPLEX 45 MINS Parul Rico APRN.ROD WELDER [address] [place] [address] [facility] [address] [place] [address] Referral ID Status Reason Start Date Expiration Date Visits Requested Visits Authorized [id number] Pending Review Auto-Generat ed Referral 02/19/2024 02/18/2025 1 1 Specialty Diagnoses / Procedures Referred By Contac t Referred To Contact Dermatology Diagnoses Plaque psoriasis Procedures CONSULT TO DERMATOLOGY Bernardino Villagomez DO [address] [place] [address] Referral ID Status Reason Start Date Expiration Date Visits Requested Visits Authorized [id number] Ref Not Required PCP Requested Referral 12/31/2023 12/30/2024 1 1 Additional Source Comments (unrecognized sect ion and content) No Status Records FoundNo Status Records FoundNo Status Records FoundNo Status Records FoundNo Status Records FoundNo Status Records FoundNo Status Records FoundNo Status Records FoundNo Status Records FoundNo Status Records FoundNo Status Records FoundNo Status Records Found INFORMATION SOURCE (unrecogn ized section and content) DATE CREATED AUTHOR 11/02/2018 [facility] DATE CREATED AUTHOR AUTHOR'S ORGANIZ ATION 12/23/2018 [facility] DATE CREATED AUTHOR AUTHOR'S ORGANIZ ATION 12/23/2018 [employer] DATE CREATED AUTHOR AUTHOR'S ORGANIZ ATION 2022 [facility] Special[facility] DATE CREATED AUTHOR AUTHOR'S ORGANIZ ATION 12/07/2022 [facility] DATE CREATED AUTHOR AUTHOR'S ORGANIZ ATION 01/14/2025 [facility] DATE CREATED AUTHOR AUTHOR'S ORGANIZ ATION 03/02/2025 [facility] DATE CREATED AUTHOR AUTHOR'S ORGANIZ ATION 04/02/2025 [facility]ists EPIC DATE CREATED AUTHOR AUTHOR'S ORGANIZ ATION 04/07/2025 [facility] DATE CREATED AUTHOR AUTHOR'S ORGANIZ ATION 05/07/2025 [facility] DATE CREATED AUTHOR AUTHOR'S ORGANIZ ATION 05/19/2025 [facility] DATE CREATED AUTHOR AUTHOR'S ORGANIZ ATION 05/20/2025 [facility] Source Comments (unrecognize d section and content) In the event this informatio n is protected by the Federal Confidentiality of Alcohol and Drug Abuse Patient Records regulations: The Federal rules restrict any use of the information to criminally investigate or prosecute any alcohol or drug abuse patient.[facility] the event this information is protected by the Federal Confidentiality of Alcohol and Drug Abuse Patient Records regulations: The Federal rules restrict any use of the information to criminally investigate or prosecute any alcohol or drug abuse patient.[facility] the event this information is protected by the Federal Confidentiality of Alcohol and Drug Abuse Patient Records regulations: The Federal rules restrict any use of the information to criminally investigate or prosecute any alcohol or drug abuse patient.[facility] the event this information is protected by the Federal Confidentiality of Alcohol and Drug Abuse Patient Records regulations: The Federal rules restrict any use of the information to criminally investigate or prosecute any alcohol or drug abuse patient.[facility] the event this information is protected by the Federal Confidentiality of Alcohol and Drug Abuse Patient Records regulations: The Federal rules restrict any use of the information to criminally investigate or prosecute any alcohol or drug abuse patient.[facility] Center[facility] the event this information is protected by the Federal Confidentiality of Alcohol and Drug Abuse Patient Records regulations: The Federal rules restrict any use of the information to criminally investigate or prosecute any alcohol or drug abuse patient.[facility] Center[facility] the event this information is protected by the Federal Confidentiality of Alcohol and Drug Abuse Patient Records regulations: The Federal rules restrict any use of the information to criminally investigate or prosecute any alcohol or drug abuse patient.[facility] Center[facility] the event this information is protected by the Federal Confidentiality of Alcohol and Drug Abuse Patient Records regulations: The Federal rules restrict any use of the information to criminally investigate or prosecute any alcohol or drug abuse patient.[facility] the event this information is protected by the Federal Confidentiality of Alcohol and Drug Abuse Patient Records regulations: The Federal rules restrict any use of the information to criminally investigate or prosecute any alcohol or drug abuse patient.[facility] the event this information is protected by the Federal Confidentiality of Alcohol and Drug Abuse Patient Records regulations: The Federal rules restrict any use of the information to criminally investigate or prosecute any alcohol or drug abuse patient.[facility] Center[facility] the event this information is protected by the Federal Confidentiality of Alcohol and Drug Abuse Patient Records regulations: The Federal rules restrict any use of the information to criminally investigate or prosecute any alcohol or drug abuse patient.[facility] CenterIn the event this information is protected by the Federal Confidentiality of Alcohol and Drug Abuse Patient Records regulations: The Federal rules restrict any use of the information to criminally investigate or prosecute any alcohol or drug abuse patient.[facility]In the event this information is protected by the Federal Confidentiality of Alcohol and Drug Abuse Patient Records regulations: The Federal rules restrict any use of the information to criminally investigate or prosecute any alcohol or drug abuse patient.[facility] CenterIn the event this information is protected by the Federal Confidentiality of Alcohol and Drug Abuse Patient Records regulations: The Federal rules restrict any use of the information to criminally investigate or prosecute any alcohol or drug abuse patient.[facility] CenterIn the event this information is protected by the Federal Confidentiality of Alcohol and Drug Abuse Patient Records regulations: The Federal rules restrict any use of the information to criminally investigate or prosecute any alcohol or drug abuse patient.[facility] CenterIn the event this information is protected by the Federal Confidentiality of Alcohol and Drug Abuse Patient Records regulations: The Federal rules restrict any use of the information to criminally investigate or prosecute any alcohol or drug abuse patient.[facility] CenterIn the event this information is protected by the Federal Confidentiality of Alcohol and Drug Abuse Patient Records regulations: The Federal rules restrict any use of the information to criminally investigate or prosecute any alcohol or drug abuse patient.[facility] CenterIn the event this information is protected by the Federal Confidentiality of Alcohol and Drug Abuse Patient Records regulations: The Federal rules restrict any use of the information to criminally investigate or prosecute any alcohol or drug abuse patient.[facility] CenterIn the event this information is protected by the Federal Confidentiality of Alcohol and Drug Abuse Patient Records regulations: The Federal rules restrict any use of the information to criminally investigate or prosecute any alcohol or drug abuse patient.[facility] CenterIn the event this information is protected by the Federal Confidentiality of Alcohol and Drug Abuse Patient Records regulations: The Federal rules restrict any use of the information to criminally investigate or prosecute any alcohol or drug abuse patient.[facility] CenterIn the event this information is protected by the Federal Confidentiality of Alcohol and Drug Abuse Patient Records regulations: The Federal rules restrict any use of the information to criminally investigate or prosecute any alcohol or drug abuse patient.[facility] CenterIn the event this information is protected by the Federal Confidentiality of Alcohol and Drug Abuse Patient Records regulations: The Federal rules restrict any use of the information to criminally investigate or prosecute any alcohol or drug abuse patient.[facility] CenterIn the event this information is protected by the Federal Confidentiality of Alcohol and Drug Abuse Patient Records regulations: The Federal rules restrict any use of the information to criminally investigate or prosecute any alcohol or drug abuse patient.[facility] CenterIn the event this information is protected by the Federal Confidentiality of Alcohol and Drug Abuse Patient Records regulations: The Federal rules restrict any use of the information to criminally investigate or prosecute any alcohol or drug abuse patient.[facility] CenterIn the event this information is protected by the Federal Confidentiality of Alcohol and Drug Abuse Patient Records regulations: The Federal rules restrict any use of the information to criminally investigate or prosecute any alcohol or drug abuse patient.[facility] CenterIn the event this information is protected by the Federal Confidentiality of Alcohol and Drug Abuse Patient Records regulations: The Federal rules restrict any use of the information to criminally investigate or prosecute any alcohol or drug abuse patient.[facility] CenterIn the event this information is protected by the Federal Confidentiality of Alcohol and Drug Abuse Patient Records regulations: The Federal rules restrict any use of the information to criminally investigate or prosecute any alcohol or drug abuse patient.[facility] CenterIn the event this information is protected by the Federal Confidentiality of Alcohol and Drug Abuse Patient Records regulations: The Federal rules restrict any use of the information to criminally investigate or prosecute any alcohol or drug abuse patient.[facility] CenterIn the event this information is protected by the Federal Confidentiality of Alcohol and Drug Abuse Patient Records regulations: The Federal rules restrict any use of the information to criminally investigate or prosecute any alcohol or drug abuse patient.[facility] CenterIn the event this information is protected by the Federal Confidentiality of Alcohol and Drug Abuse Patient Records regulations: The Federal rules restrict any use of the information to criminally investigate or prosecute any alcohol or drug abuse patient.[facility] CenterIn the event this information is protected by the Federal Confidentiality of Alcohol and Drug Abuse Patient Records regulations: The Federal rules restrict any use of the information to criminally investigate or prosecute any alcohol or drug abuse patient.[facility] CenterIn the event this information is protected by the Federal Confidentiality of Alcohol and Drug Abuse Patient Records regulations: The Federal rules restrict any use of the information to criminally investigate or prosecute any alcohol or drug abuse patient.[facility] CenterIn the event this information is protected by the Federal Confidentiality of Alcohol and Drug Abuse Patient Records regulations: The Federal rules restrict any use of the information to criminally investigate or prosecute any alcohol or drug abuse patient.[facility] CenterIn the event this information is protected by the Federal Confidentiality of Alcohol and Drug Abuse Patient Records regulations: The Federal rules restrict any use of the information to criminally investigate or prosecute any alcohol or drug abuse patient.[facility] CenterIn the event this information is protected by the Federal Confidentiality of Alcohol and Drug Abuse Patient Records regulations: The Federal rules restrict any use of the information to criminally investigate or prosecute any alcohol or drug abuse patient.[facility] CenterIn the event this information is protected by the Federal Confidentiality of Alcohol and Drug Abuse Patient Records regulations: The Federal rules restrict any use of the information to criminally investigate or prosecute any alcohol or drug abuse patient.[facility] CenterIn the event this information is protected by the Federal Confidentiality of Alcohol and Drug Abuse Patient Records regulations: The Federal rules restrict any use of the information to criminally investigate or prosecute any alcohol or drug abuse patient.[facility] CenterIn the event this information is protected by the Federal Confidentiality of Alcohol and Drug Abuse Patient Records regulations: The Federal rules restrict any use of the information to criminally investigate or prosecute any alcohol or drug abuse patient.[facility] CenterIn the event this information is protected by the Federal Confidentiality of Alcohol and Drug Abuse Patient Records regulations: The Federal rules restrict any use of the information to criminally investigate or prosecute any alcohol or drug abuse patient.[facility] CenterIn the event this information is protected by the Federal Confidentiality of Alcohol and Drug Abuse Patient Records regulations: The Federal rules restrict any use of the information to criminally investigate or prosecute any alcohol or drug abuse patient.[facility] CenterIn the event this information is protected by the Federal Confidentiality of Alcohol and Drug Abuse Patient Records regulations: The Federal rules restrict any use of the information to criminally investigate or prosecute any alcohol or drug abuse patient.[facility] CenterIn the event this information is protected by the Federal Confidentiality of Alcohol and Drug Abuse Patient Records regulations: The Federal rules restrict any use of the information to criminally investigate or prosecute any alcohol or drug abuse patient.[facility] CenterIn the event this information is protected by the Federal Confidentiality of Alcohol and Drug Abuse Patient Records regulations: The Federal rules restrict any use of the information to criminally investigate or prosecute any alcohol or drug abuse patient.[facility] CenterIn the event this information is protected by the Federal Confidentiality of Alcohol and Drug Abuse Patient Records regulations: The Federal rules restrict any use of the information to criminally investigate or prosecute any alcohol or drug abuse patient.[facility] CenterIn the event this information is protected by the Federal Confidentiality of Alcohol and Drug Abuse Patient Records regulations: The Federal rules restrict any use of the information to criminally investigate or prosecute any alcohol or drug abuse patient.[facility] CenterIn the event this information is protected by the Federal Confidentiality of Alcohol and Drug Abuse Patient Records regulations: The Federal rules restrict any use of the information to criminally investigate or prosecute any alcohol or drug abuse patient.[facility] CenterIn the event this information is protected by the Federal Confidentiality of Alcohol and Drug Abuse Patient Records regulations: The Federal rules restrict any use of the information to criminally investigate or prosecute any alcohol or drug abuse patient.[facility] CenterIn the event this information is protected by the Federal Confidentiality of Alcohol and Drug Abuse Patient Records regulations: The Federal rules restrict any use of the information to criminally investigate or prosecute any alcohol or drug abuse patient.[facility] CenterIn the event this information is protected by the Federal Confidentiality of Alcohol and Drug Abuse Patient Records regulations: The Federal rules restrict any use of the information to criminally investigate or prosecute any alcohol or drug abuse patient.[facility] CenterIn the event this information is protected by the Federal Confidentiality of Alcohol and Drug Abuse Patient Records regulations: The Federal rules restrict any use of the information to criminally investigate or prosecute any alcohol or drug abuse patient.[facility] CenterIn the event this information is protected by the Federal Confidentiality of Alcohol and Drug Abuse Patient Records regulations: The Federal rules restrict any use of the information to criminally investigate or prosecute any alcohol or drug abuse patient.[facility] CenterIn the event this information is protected by the Federal Confidentiality of Alcohol and Drug Abuse Patient Records regulations: The Federal rules restrict any use of the information to criminally investigate or prosecute any alcohol or drug abuse patient.[facility] CenterIn the event this information is protected by the Federal Confidentiality of Alcohol and Drug Abuse Patient Records regulations: The Federal rules restrict any use of the information to criminally investigate or prosecute any alcohol or drug abuse patient.[facility] CenterIn the event this information is protected by the Federal Confidentiality of Alcohol and Drug Abuse Patient Records regulations: The Federal rules restrict any use of the information to criminally investigate or prosecute any alcohol or drug abuse patient.[facility] CenterIn the event this information is protected by the Federal Confidentiality of Alcohol and Drug Abuse Patient Records regulations: The Federal rules restrict any use of the information to criminally investigate or prosecute any alcohol or drug abuse patient.[facility] CenterIn the event this information is protected by the Federal Confidentiality of Alcohol and Drug Abuse Patient Records regulations: The Federal rules restrict any use of the information to criminally investigate or prosecute any alcohol or drug abuse patient.[facility] CenterIn the event this information is protected by the Federal Confidentiality of Alcohol and Drug Abuse Patient Records regulations: The Federal rules restrict any use of the information to criminally investigate or prosecute any alcohol or drug abuse patient.[facility] CenterIn the event this information is protected by the Federal Confidentiality of Alcohol and Drug Abuse Patient Records regulations: The Federal rules restrict any use of the information to criminally investigate or prosecute any alcohol or drug abuse patient.[facility] CenterIn the event this information is protected by the Federal Confidentiality of Alcohol and Drug Abuse Patient Records regulations: The Federal rules restrict any use of the information to criminally investigate or prosecute any alcohol or drug abuse patient.[facility] CenterIn the event this information is protected by the Federal Confidentiality of Alcohol and Drug Abuse Patient Records regulations: The Federal rules restrict any use of the information to criminally investigate or prosecute any alcohol or drug abuse patient.[facility] Reason for Visit (unrecogniz ed section and content) Reason Comments Physical Therapy Specialty Diagnoses / Procedures Referred By Contac t Referred To Contact [facility] Diagnoses Chronic bilateral low back pain with left-sided sciatica Procedures CONSULT TO PHYSICAL THERAPY PHYSICAL THERAPY EVALUATION HIGH COMPLEX 45 [place] [address] [place] [address] Phone: tel: fax: [facility] [address] [place] [address] Referral ID Status Reason Start Date Expiration Date Visits Requested Visits Authorized [id number] Authorized Auto-Generat ed Referral 11/03/2024 11/02/2025 40 40 Reason Comments PT Progress Note Reason Comments [facility] Infusion Supplies infusion set non needle cannula/syringe w/needle for pump Reason Comments Diabetes Reason Comments Patient Question Reason Comments [facility] CGM done Electronically sen sors Reason Comments Refill Request Reason Comments [employer] [facility] Office notes/pump do wnload Reason Comments Follow Up Reason Comments Approval of Medical Services Glucose mon [employer] [id number] Reason Comments [facility] Medical Supplies [id number] Reason Comments [facility] Infusion Supplies A4230 inf usion [id number] syringe w/needle Reason Comments Follow Up Reason Comments Rash Arms and legs Specialty Diagnoses / Procedures Referred By Contac t Referred To Contact Dermatology Diagnoses Plaque psoriasis Procedures CONSULT TO DERMATOLOGY Bernardino Villagomez, DO [address] [place] [address] Referral ID Status Reason Start Date Expiration Date Visits Requested Visits Authorized [id number] Ref Not Required PCP Requested Referral 12/31/2023 12/30/2024 1 1 Reason Comments New Patient Sciatica Reason Comments Results Reason Comments Follow Up Rash Reason Comments Follow Up Low Back and leg leah n Reason Comments Patient Update Reason Onset Date Comments Refill Request 04/06/2024 Reason Comments LESION, SKIN Reason Comments procedure instructions Reason Comments New Patient Left low back/left h ip pain with radiation down left leg to ankle Reason Comments Follow Up Phone Call Reason Comments continued back pain Reason Comments [facility] Medical Supplies A4211/K060 3 Reason Comments Back Pain Reason Comments New Patient Specialty Diagnoses / Procedures Referred By Contac t Referred To Contact Diagnoses Radiculopathy of lumbar region Spinal stenosis of lumbar region, unspecified whether neurogenic claudication present Procedures CONSULT TO SPINE SURGERY OFFICE/OUTPATIENT NEW HIGH MDM 60 [place] [address] [place] [address] Referral ID Status Reason Start Date Expiration Date Visits Re quested Visits Authorized [id number] Closed 07/21/2024 10/19/2024 1 1 Reason Comments Med Refill Reason Comments New Med Request Reason Onset Date Comments Med Refill 10/07/2024 Reason Comments 1st po colonoscopy Reason Onset Date Comments Med Refill 10/24/2024 Reason Onset Date Comments Med Refill 11/27/2024 Reason Comments [employer] Up[employer] Patient still under warranty with 770G Reason Comments Follow Up Insulin Dependent Diabetes Mellitus Reason Comments Pain Reason Comments Lab Orders Mailed to patient Reason Comments Established Patient Reason Onset Date Comments Med Refill 12/25/2024 Reason Comments Letter Reason Comments Updated Fax Reason Onset Date Comments Refill Request 01/15/2025 Reason Comments Post Op Follow Up Reason Comments Diabetic Eye Exam Reason Comments Patient Question Medication Question Reason Comments PT Eval Patient Education Specialty Diagnoses / Procedures Referred By Contac t Referred To Contact [facility] Diagnoses Chronic bilateral low back pain with left-sided sciatica Procedures CONSULT TO PHYSICAL THERAPY PHYSICAL THERAPY EVALUATION HIGH COMPLEX [address] [place] [address] [place] [address] Phone: tel: fax: [facility] [address] [place] [address] Referral ID Status Reason Start Date Expiration Date Visits Requested Visits Authorized [id number] Authorized Auto-Generat ed Referral 11/03/2024 11/02/2025 40 40 Reason Comments Medication Request Reason Onset Date Comments Med Refill 04/11/2025 Reason Onset Date Comments Med Refill 04/09/2025 Reason Onset Date Comments Med Refill 04/16/2025 Reason Onset Date Comments Med Refill 04/05/2025 Reason Onset Date Comments Med Refill 04/30/2025 Reason Comments Established Patient 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 Reason Comments Radio Gen RMP Specialty Diagnoses / Procedures Referred By Contac t Referred To Contact XR IMAGING Diagnoses Chronic bilateral low back pain with left-sided sciatica Procedures XR LUMBAR MOTION 4V AP/LAT/ FLEX/EXT RADEX SPINE LUMBOSACRAL MINIMUM 4 [place] [address] [place] [address] Phone: tel: fax: [place] [phone] Referral ID Status Reason Start Date Expiration Date V isits Requested Visits Authorized [id number] Closed Auto-Generate d Referral 05/05/2025 06/04/2026 1 1 Reason Comments Results - [facility] Care Teams (unrecognized sec tion and content) Team Status: Active Member Role Status Dates Darryn Araya DO Primary Care Provider Active Team Status: Inactive Member Role Status Dates Darryn Araya DO Primary Care Provider Active Start: March 19, 2024 End: March 19, 2024 Parul Rico APRN EMERGENCY DEPARTMENT-C Attending Provider Active Start: March 19, 2024 End: March 19, 2024 Team Status: Inactive Member Role Status Dates Darryn RicciDO lara Primary Care Provider Active Start: March 25, 2024 End: March 25, 2024 Parul Rico APRN EMERGENCY DEPARTMENT-C Attending Provider Active Start: March 25, 2024 End: March 25, 2024 Team Status: Active Member Role Status Dates Darryn RicciDO lara Primary Care Provider Active Start: March 19, 2024 Parul Rico APRN EMERGENCY DEPARTMENT-C Attending Provider Active Start: March 19, 2024 Team Status: Inactive Member Role Status Dates Darryn RicciDO lara Primary Care Provider Active Tom Calderon MD Attending Provider Active Retail Loan Originator Assistant Relationship Specialty Start Date End Date Mikael Araya JrRefugio [address] [place] [address] PCP - General 10/12/07 Retail Loan Originator Assistant Relationship Specialty Start Date End Date Mikael Araya JrRefugio [address] [place] [address] PCP - General 10/12/07 Team Status: Inactive Member Role Status Dates Darryn RicciDO lara Primary Care Provider Active Bucky Pitt MD Attending Provider Active Team Status: Inactive Member Role Status Dates Darryn RicciDO lara Primary Care Provider Active Cristi Smith PA-C Emergency Provider Active Retail Loan Originator Assistant Relationship Specialty Start Date End Date Mikael Araya JrRefugio [address] [place] [address] PCP - General 10/12/07 Retail Loan Originator Assistant Relationship Specialty Start Date End Date Mikael Araya JrRefugio [address] [place] [address] PCP - General 10/12/07 Retail Loan Originator Assistant Relationship Specialty Start Date End Date Mikael Araya JrRefugio [address] [place] [address] PCP - General 10/12/07 Retail Loan Originator Assistant Relationship Specialty Start Date End Date Mikael Araya Jr. [address] [place] [id number] PCP - General 10/12/07 Retail Loan Originator Assistant Relationship Specialty Start Date End Date Mikael Araya Jr. [address] [place] [address] PCP - General 10/12/07 Retail Loan Originator Assistant Relationship Specialty Start Date End Date Mikael Araya Jr. [address] [place] [address] PCP - General 10/12/07 Retail Loan Originator Assistant Relationship Specialty Start Date End Date Mikael Araya JrRefugio, DO [address] [place] [address] PCP - General 10/12/07 Retail Loan Originator Assistant Relationship Specialty Start Date End Date Quiana Mikael Prado , DO [address] [place] [address] PCP - General 10/12/07 Retail Loan Originator Assistant Relationship Specialty Start Date End Date Mikael Araya, DO [address] [place] [address] PCP - General Family Medicine 04/02/23 Mikael Araya, DO [address] [place] [address] PCP - Medical [place] [employer] 04/03/23 Retail Loan Originator Assistant Relationship Specialty Start Date End Date Donnajeyson Mikael Eve Garza, DO [address] [place] [id number] PCP - General 10/12/07 Retail Loan Originator Assistant Relationship Specialty Start Date End Date Mikael Araya JrRefugio, DO [address] [place] [address] PCP - General 10/12/07 Retail Loan Originator Assistant Relationship Specialty Start Date End Date Mikael Araya JrRefugio, DO [address] [place] [address] PCP - General 10/12/07 Retail Loan Originator Assistant Relationship Specialty Start Date End Date Mikael Araya , DO [address] [place] [address] PCP - General 10/12/07 Retail Loan Originator Assistant Relationship Specialty Start Date End Date Mikael Araya , DO [address] [place] [address] PCP - General 10/12/07 Retail Loan Originator Assistant Relationship Specialty Start Date End Date Mikael Araya JrRefugio, DO [address] [place] [address] PCP - General 10/12/07 Retail Loan Originator Assistant Relationship Specialty Start Date End Date Mikael Araya JrRefugio, DO [address] [place] [address] PCP - General 10/12/07 Retail Loan Originator Assistant Relationship Specialty Start Date End Date Mikael Araya JrRefugio, DO [address] [place] [address] PCP - General 10/12/07 Retail Loan Originator Assistant Relationship Specialty Start Date End Date Mikael Araya , DO [address] [place] [address] PCP - General 10/12/07 Team Status: Inactive Member Role Status [place] Darryn Prado DO Quiana Primary Care Provi clemente, Attending Provider Active Start: June 25, 2024 End: June 25, 2024 Retail Loan Originator Assistant Relationship Specialty Start Date End Date Mikael Araya Refugio, DO [address] [place] [phone] PCP - General 10/12/07 Retail Loan Originator Assistant Relationship Specialty Start Date End Date Mikael Araya DO [address] [place] [address] PCP - General Family Medicine 04/02/23 Retail Loan Originator Assistant Relationship Specialty Start Date End Date Mikael Araya, DO [address] [place] [address] PCP - General Family Medicine 04/02/23 Retail Loan Originator Assistant Relationship Specialty Start Date End Date Mikael Araya, DO [address] [place] [address] PCP - General Family Medicine 04/02/23 Retail Loan Originator Assistant Relationship Specialty Start Date End Date Mikael Araya DO [address] [place] [address] PCP - General Family Medicine 04/02/23 Mikael Araya DO [address] [place] [address] PCP - Medical [place] [employer] 05/03/14 11/02/99 Retail Loan Originator Assistant Relationship Specialty Start Date End Date Mikael Araya DO [address] [place] [address] PCP - General Family Medicine 04/02/23 Mikael Araya, DO [address] [place] [address] PCP - Medical [place] [employer] 05/03/14 11/02/99 Retail Loan Originator Assistant Relationship Specialty Start Date End Date Mikael Araya JrRefugio, DO [address] [place] [address] PCP - General 10/12/07 Retail Loan Originator Assistant Relationship Specialty Start Date End Date Mikael Araya JrRefugio, DO [address] [place] [address] PCP - General 10/12/07 Retail Loan Originator Assistant Relationship Specialty Start Date End Date Mikael Araya, DO [address] [place] [address] PCP - General Family Medicine 04/02/23 Katey Anne PA [address] [facility] [address] [place] [address] PCP - Medical [place] [employer] 05/03/14 11/02/99 Retail Loan Originator Assistant Relationship Specialty Start Date End Date Mikael Araya, DO [address] [place] [address] PCP - General Family Medicine 04/02/23 Katey Anne, PA [address] [place] [address] PCP - Medical [place] 05/03/14 11/02/99 Retail Loan Originator Assistant Relationship Specialty Start Date End Date Mikael Araya, DO [address] [place] [address] PCP - General Family Medicine 04/02/23 Retail Loan Originator Assistant Relationship Specialty Start Date End Date Mikael Araya, DO [address] [place] [address] PCP - General Family Medicine 04/02/23 Katey Anne PA [address] [place] [address] PCP - Medical [place] [employer] 05/03/14 11/02/99 Retail Loan Originator Assistant Relationship Specialty Start Date End Date Mikael Araya Jr., DO [address] [place] [phone] PCP - General 10/12/07 Retail Loan Originator Assistant Relationship Specialty Start Date End Date Mikael Araya, DO [address] [place] [address] PCP - General Family Medicine 04/02/23 Katye Anne, PA [address] [facility] [address] [place] [address] PCP - Medical [place] [employer] 05/03/14 11/02/99 Retail Loan Originator Assistant Relationship Specialty Start Date End Date Mikael Araya Jr., DO [address] [place] [phone] PCP - General 10/12/07 Retail Loan Originator Assistant Relationship Specialty Start Date End Date Mikael Araya Jr., DO [address] [place] [phone] PCP - General 10/12/07 Retail Loan Originator Assistant Relationship Specialty Start Date End Date Mikael Araya, DO [address] [place] [address] PCP - General Family Medicine 04/02/23 Katey Anne PA [address] [facility] [address] [place] [address] PCP - Medical [place] [employer] 05/03/14 11/02/99 Retail Loan Originator Assistant Relationship Specialty Start Date End Date Mikael Araya Jr., DO [address] [place] [address] PCP - General 10/12/07 Retail Loan Originator Assistant Relationship Specialty Start Date End Date Mikael Araya Jr., DO [address] [place] [address] PCP - General 10/12/07 Retail Loan Originator Assistant Relationship Specialty Start Date End Date Mikael Araya Jr., DO [address] [place] [address] PCP - General 10/12/07 Retail Loan Originator Assistant Relationship Specialty Start Date End Date Mikael Araya Jr., DO [address] [place] [address] PCP - General 10/12/07 Retail Loan Originator Assistant Relationship Specialty Start Date End Date Mikael Araya, DO [address] [place] [address] PCP - General Family Medicine 04/02/23 Mikael Araya, DO [address] [place] [address] PCP - Medical [employer] 05/03/14 11/02/99 Retail Loan Originator Assistant Relationship Specialty Start Date End Date DonnaMikael benítez Jr., DO [address] [place] [address] PCP - General 10/12/07 Retail Loan Originator Assistant Relationship Specialty Start Date End Date Mikael Araya Jr., DO [address] [place] [address] PCP - General 10/12/07 Retail Loan Originator Assistant Relationship Specialty Start Date End Date Mikael Araya Jr., DO [address] [place] [address] PCP - General 10/12/07 Retail Loan Originator Assistant Relationship Specialty Start Date End Date Mikael Araya, DO [address] [place] [address] PCP - General Family Medicine 04/02/23 Mikael Araya, DO [address] [place] [address] PCP - Medical [place] 05/03/14 11/02/99 Retail Loan Originator Assistant Relationship Specialty Start Date End Date Mikael Araya, DO [address] [place] [address] PCP - General Family Medicine 04/02/23 Mikael Araya, DO [address] [place] [address] PCP - Medical [place] 05/03/14 11/02/99 Retail Loan Originator Assistant Relationship Specialty Start Date End Date Mikael Araya Jr., DO [address] [place] [phone] PCP - General 10/12/07 Retail Loan Originator Assistant Relationship Specialty Start Date End Date Mikael Araya Jr., DO [address] [place] [address] PCP - General 10/12/07 Retail Loan Originator Assistant Relationship Specialty Start Date End Date Mikael Araya DO [address] [place] [address] PCP - General Family Medicine 04/02/23 Mikael Araya DO [address] [place] [address] PCP - Medical [employer] 05/03/14 11/02/99 Retail Loan Originator Assistant Relationship Specialty Start Date End Date Mikael Araya, DO [address] [place] [address] PCP - General Family Medicine 04/02/23 Mikael Araya DO [address] [place] [address] PCP - Medical [place] 05/03/14 11/02/99 Retail Loan Originator Assistant Relationship Specialty Start Date End Date Mikael Araya DO [address] [place] [address] PCP - General Family Medicine 04/02/23 Katey Anne, PA [address] [place] [address] PCP - Medical [place] 05/03/14 11/02/99 Retail Loan Originator Assistant Relationship Specialty Start Date End Date Mikael Araya JrRefugio, DO [address] [place] [address] PCP - General 10/12/07 Retail Loan Originator Assistant Relationship Specialty Start Date End Date Mikael Araya JrRefugio, DO [address] [place] [address] PCP - General 10/12/07 Retail Loan Originator Assistant Relationship Specialty Start Date End Date Mikael Araya Jr., DO [address] [place] [address] PCP - General 10/12/07 Team Status: Inactive Member Role Status Dates Darryn Araya DO Primary Care Provider Active Start: April 20, 2025 End: April 20, 2025 Darryn Araya DO Referring Provider Active Start: April 20, 2025 End: April 20, 2025 Rene Castillo MD Attending Provider Active Sta rt: April 20, 2025 End: April 20, 2025 Team Status: Inactive Member Role Status Dates Darryn Araya DO Primary Care Provider Active Start: May 16, 2025 End: May 16, 2025 Rene Castillo MD Attending Provider Active Sta rt: May 16, 2025 End: May 16, 2025 Team Status: Inactive Member Role Status Dates Darryn Araya DO Primary Care Provider Active Start: May 23, 2025 End: May 23, 2025 Rene Castillo MD Attending Provider Active Sta rt: May 23, 2025 End: May 23, 2025 Goals (unrecognized section and content) Goals may be documented in a n alternate section FOR RECORDS PERTAINING TO PATIENTS WHO ARE OR HAVE BEEN ENROLLED IN A CHEMICAL DEPENDENCY/SUBSTANCEABUSE PROGRAM, SOME INFORMATION MAY BE OMITTED. This clinical summary was aggregated from multiple sources. Caution should be exercised in using it in the provision of clinical care. This summary normalizes information from multiple sources, and as a consequence, information in this document may materially change the coding, format and clinical context of patient data. In addition, data may be omitted in some cases. CLINICAL DECISIONS SHOULD BE BASED ON THE PRIMARY CLINICAL RECORDS. [facility] [employer] [facility]. provides no warranty or guarantee of the accuracy or completeness of information in this document.
[2025-05-28 11:32] LABS: Alanine Aminotransferase 76 U/L (16-63); Albumin Globulin Ratio 1.1; Albumin Level 3.8 g/dL (3.4-5.0); Alkaline Phosphatase 72 U/L (46-116); Anion Gap 10.6; Aspartate Amino Transferase 42 U/L (15-37); Blood Urea Nitrogen 17.0 mg/dL (7.0-18.0); Calcium 9.1 mg/dL (8.5-10.1); Carbon Dioxide 31.7 mmol/L (21.0-32.0); Chloride 104 mmol/L (98-107); Cholesterol 189 mg/dL (<=200); Estimated GFR (African America >60 (>=60 mL/min/1.73m^2); Estimated GFR (Non-African Ame >60 (>=60 mL/min/1.73m^2); Globulin 3.4 g/dL; Glucose 143 mg/dL (74-106); HDL Cholesterol 78 mg/dL (40-60); Potassium 4.3 mmol/L (3.5-5.1); Sodium 142 mmol/L (136-145); Thyroid Stimulating Hormone 1.457 uIU/mL (0.358-3.740); Total Protein 7.2 g/dL (6.4-8.2); Triglycerides 68 mg/dL (<=150); VLDL CHOLESTEROL 13.6 mg/dL
== END 2025-05-28 10:49 | disposition home or self-care (01) ==
PROVIDERS: PCP Family Medicine
DX: E10.9 Type 1 diabetes mellitus without complications (principal)
CPT/HCPCS: 36415; 80053; 80061; 82043; 82570; 83036; 84443